=== PATIENT | female | born 1945 | race Caucasian/White ===

== ENCOUNTER 2016-10-18 06:36 | Day surgery (SDC) | payer OTHER ==
[2016-10-18] MEDS ORDERED: DEXAMETHASONE IVPB ONE (08:00)
[2016-10-18] MEDS ORDERED: DIPHENHYDRAMINE IVPB ONE (08:00)
[2016-10-18] MEDS ORDERED: SODIUM CHLORIDE 250 ML IV ONE (08:00)
[2016-10-18] MEDS ORDERED: [UNRECOGNIZED DRUG - OTHER] IVPB ONE (08:00)
[2016-10-18] MEDS ORDERED: ONDANSETRON IVPB ONE (08:00)
[2016-10-18] MEDS ORDERED: PACLITAXEL 156 MG in SODIUM CHLORIDE 250 ML IVPB ONE (08:30)
[2016-10-18 08:36] LABS: MCH 32.2 pg (25.7-33.7); MCHC 33.9 g/dl (32.0-36.0); MEAN CELL VOLUME 94.8 fl (80-96); MEAN PLT VOLUME 6.6 fl (7.5-11.1); PLATELET COUNT 273 K/MM3 (134-434); RDW 15.3 % (11.6-15.6); WHITE BLOOD COUNT 5.8 K/mm3 (4.0-10.0)
[2016-10-18 08:37] LABS: BASOPHIL 1.1 % (0-2.0); EOSINOPHIL 1.6 % (0-4.5); NEUTROPHILS 68.2 % (42.8-82.8)
[2016-10-18 10:48] LABS: ANION GAP 11 (8-16); CALCIUM 8.6 mg/dL (8.5-10.1); CO2 19 mmol/L (21-32); GLUCOSE,RANDOM 100 mg/dL (74-106); MAGNESIUM 1.5 mg/dL (1.8-2.4)
[2016-10-18 11:05] LABS: ALBUMIN 3.3 g/dl (3.4-5.0); ALK PHOS 72 U/L (45-117); BILIRUBIN,TOTAL 0.3 mg/dL (0.2-1.0); CREATININE 1.7 mg/dL (0.55-1.02); SGOT/AST 16 U/L (15-37); SGPT/ALT 13 U/L (12-78)
[2016-10-18 11:11] LABS: BILIRUBIN,DIRECT < 0.1 mg/dL (0.0-0.2)
[2016-10-18] MEDS ORDERED: MAGNESIUM SULF 50% (8.12 MEQ/2 ML-1 GM VIAL) IVPB ONE (12:00)
[2016-10-18 15:55] VITALS: BMI 28.8
[2016-10-18 16:05] VITALS: BP 124/66; PULSE 66; TEMP 98.3
== END 2016-10-18 15:00 | disposition home or self-care (01) ==
LOC: JONCCHEMO 06:36 → J7W 09:20 → JONCCHEMO 15:00
PROVIDERS: ATTEND Internal Medicine Hematology & Oncology
PROC: 3E04305 Introduction of Other Antineoplastic into Central Vein, Percutaneous Approach (ICD-10-PCS; principal; 2016-10-18)
PROC: 3E0437Z Introduction of Electrolytic and Water Balance Substance into Central Vein, Percutaneous Approach (ICD-10-PCS; 2016-10-18)
DX: Z51.11 Encounter for antineoplastic chemotherapy (principal); C50.911 Malignant neoplasm of unspecified site of right female breast
CPT/HCPCS: 96361; 96367; 96375; 96413; J9267; 36415; 80048; 80076; 83735; 85027; 96415

== ENCOUNTER 2016-10-30 06:40 | Day surgery (SDC) | payer OTHER ==
[2016-10-30] MEDS ORDERED: [UNRECOGNIZED DRUG - OTHER] IVPB ONE (08:00)
[2016-10-30] MEDS ORDERED: SODIUM CHLORIDE 250 ML IV ONE (08:00)
[2016-10-30] MEDS ORDERED: DEXAMETHASONE IVPB ONE (08:00)
[2016-10-30] MEDS ORDERED: DIPHENHYDRAMINE IVPB ONE (08:00)
[2016-10-30] MEDS ORDERED: ONDANSETRON IVPB ONE (08:00)
[2016-10-30] MEDS ORDERED: PACLITAXEL 156 MG in SODIUM CHLORIDE 250 ML IVPB ONE (08:30)
[2016-10-30 09:31] LABS: BASOPHIL 0.7 % (0-2.0); EOSINOPHIL 2.9 % (0-4.5); MCH 31.8 pg (25.7-33.7); MCHC 33.7 g/dl (32.0-36.0); MEAN CELL VOLUME 94.2 fl (80-96); MEAN PLT VOLUME 6.5 fl (7.5-11.1); NEUTROPHILS 65.7 % (42.8-82.8); PLATELET COUNT 244 K/MM3 (134-434); RDW 15.1 % (11.6-15.6); WHITE BLOOD COUNT 4.4 K/mm3 (4.0-10.0)
[2016-10-30 12:24] LABS: ALBUMIN 3.1 g/dl (3.4-5.0); BILIRUBIN,DIRECT 0.1 mg/dL (0.0-0.2); BILIRUBIN,TOTAL 0.3 mg/dL (0.2-1.0); MAGNESIUM 1.8 mg/dL (1.8-2.4); TOT PROT 6.5 g/dl (6.4-8.2)
[2016-10-30 17:35] VITALS: BP 140/89; PULSE 72; TEMP 98.2
== END 2016-10-30 14:30 | disposition home or self-care (01) ==
LOC: JONCCHEMO 06:40 → J7W 10:44 → JONCCHEMO 14:30
PROVIDERS: ATTEND Internal Medicine Hematology & Oncology
PROC: 3E04305 Introduction of Other Antineoplastic into Central Vein, Percutaneous Approach (ICD-10-PCS; principal; 2016-10-30)
PROC: 3E0437Z Introduction of Electrolytic and Water Balance Substance into Central Vein, Percutaneous Approach (ICD-10-PCS; 2016-10-30)
DX: Z51.11 Encounter for antineoplastic chemotherapy (principal); C50.911 Malignant neoplasm of unspecified site of right female breast
CPT/HCPCS: 96361; 96367; 96413; J9267; 36415; 80076; 83735; 85025; 96415

== ENCOUNTER 2016-11-13 07:09 | Day surgery (SDC) | payer OTHER ==
[2016-11-13] MEDS ORDERED: DEXAMETHASONE IVPB ONE (08:00)
[2016-11-13] MEDS ORDERED: ONDANSETRON IVPB ONE (08:00)
[2016-11-13] MEDS ORDERED: SODIUM CHLORIDE 250 ML IV ONE (08:00)
[2016-11-13] MEDS ORDERED: [UNRECOGNIZED DRUG - OTHER] IVPB ONE (08:00)
[2016-11-13] MEDS ORDERED: DIPHENHYDRAMINE IVPB ONE (08:00)
[2016-11-13] MEDS ORDERED: SODIUM CHLORIDE IVPB ONE (08:30)
[2016-11-13] MEDS ORDERED: PACLITAXEL IVPB ONE (08:30)
[2016-11-13 10:26] LABS: MCH 31.3 pg (25.7-33.7); MCHC 33.6 g/dl (32.0-36.0); MEAN CELL VOLUME 93.2 fl (80-96); RDW 15.4 % (11.6-15.6); WHITE BLOOD COUNT 5.1 K/mm3 (4.0-10.0)
[2016-11-13 10:27] LABS: MEAN PLT VOLUME 6.6 fl (7.5-11.1)
[2016-11-13 12:14] LABS: ALBUMIN 3.4 g/dl (3.4-5.0); ANION GAP 12 (8-16); BILIRUBIN,TOTAL 0.3 mg/dL (0.2-1.0); CALCIUM 8.6 mg/dL (8.5-10.1); CO2 24 mmol/L (21-32); CREATININE 1.5 mg/dL (0.55-1.02); GLUCOSE,RANDOM 94 mg/dL (74-106); MAGNESIUM 1.6 mg/dL (1.8-2.4); SGOT/AST 17 U/L (15-37); SGPT/ALT 11 U/L (12-78); TOT PROT 6.8 g/dl (6.4-8.2)
[2016-11-13 12:15] LABS: ALK PHOS 77 U/L (45-117)
[2016-11-13 12:22] LABS: BILIRUBIN,DIRECT < 0.1 mg/dL (0.0-0.2)
[2016-11-13 12:35] LABS: PLATELET COUNT 274 K/MM3 (134-434); PLATELET ESTIMATE ADEQUATE (NORMAL)
[2016-11-13] MEDS ORDERED: MAGNESIUM SULF 50% (8.12 MEQ/2 ML-1 GM VIAL) IVPB ONE (13:20)
[2016-11-13 14:41] VITALS: BP 130/62; PULSE 84; TEMP 98.2
== END 2016-11-13 14:46 | disposition home or self-care (01) ==
LOC: JONCCHEMO 07:09 → J7W 10:29 → JONCCHEMO 14:46
PROVIDERS: ATTEND Internal Medicine Hematology & Oncology
PROC: 3E04305 Introduction of Other Antineoplastic into Central Vein, Percutaneous Approach (ICD-10-PCS; principal; 2016-11-13)
PROC: 3E0437Z Introduction of Electrolytic and Water Balance Substance into Central Vein, Percutaneous Approach (ICD-10-PCS; 2016-11-13)
PROC: 3E043GC Introduction of Other Therapeutic Substance into Central Vein, Percutaneous Approach (ICD-10-PCS; 2016-11-13)
DX: Z51.11 Encounter for antineoplastic chemotherapy (principal); C50.911 Malignant neoplasm of unspecified site of right female breast
CPT/HCPCS: 96361; 96367; 96413; J9267; 36415; 80048; 80076; 82378; 83735; 85025; 86300

== ENCOUNTER 2016-11-27 07:04 | Day surgery (SDC) | payer OTHER ==
[2016-11-27] MEDS ORDERED: [UNRECOGNIZED DRUG - OTHER] IVPB ONE (08:00)
[2016-11-27] MEDS ORDERED: DEXAMETHASONE IVPB ONE (08:00)
[2016-11-27] MEDS ORDERED: ONDANSETRON IVPB ONE (08:00)
[2016-11-27] MEDS ORDERED: DIPHENHYDRAMINE IVPB ONE (08:00)
[2016-11-27] MEDS ORDERED: PACLITAXEL 156 MG in SODIUM CHLORIDE 250 ML IVPB ONE (08:30)
[2016-11-27] MEDS ORDERED: SODIUM CHLORIDE 250 ML IV ONE (09:30)
[2016-11-27 09:32] LABS: BASOPHIL 1.3 % (0-2.0); MCH 31.2 pg (25.7-33.7); MCHC 33.7 g/dl (32.0-36.0); MEAN CELL VOLUME 92.5 fl (80-96); MEAN PLT VOLUME 6.5 fl (7.5-11.1); NEUTROPHILS 62.8 % (42.8-82.8); PLATELET COUNT 254 K/MM3 (134-434); RDW 15.3 % (11.6-15.6); WHITE BLOOD COUNT 4.6 K/mm3 (4.0-10.0)
[2016-11-27 13:36] LABS: ALBUMIN 3.1 g/dl (3.4-5.0); BILIRUBIN,DIRECT 0.1 mg/dL (0.0-0.2); BILIRUBIN,TOTAL 0.3 mg/dL (0.2-1.0); CALCIUM 8.4 mg/dL (8.5-10.1); CREATININE 1.5 mg/dL (0.55-1.02); TOT PROT 6.3 g/dl (6.4-8.2)
[2016-11-27 16:44] VITALS: BP 127/74; PULSE 82; TEMP 98.6
== END 2016-11-27 16:00 | disposition home or self-care (01) ==
LOC: JONCCHEMO 07:04 → J7W 12:08 → JONCCHEMO 16:00
PROVIDERS: ATTEND Internal Medicine Hematology & Oncology
PROC: 3E04305 Introduction of Other Antineoplastic into Central Vein, Percutaneous Approach (ICD-10-PCS; principal; 2016-11-27)
PROC: 3E043GC Introduction of Other Therapeutic Substance into Central Vein, Percutaneous Approach (ICD-10-PCS; 2016-11-27)
PROC: 3E0437Z Introduction of Electrolytic and Water Balance Substance into Central Vein, Percutaneous Approach (ICD-10-PCS; 2016-11-27)
DX: Z51.11 Encounter for antineoplastic chemotherapy (principal); C50.311 Malignant neoplasm of lower-inner quadrant of right female breast; C79.89 Secondary malignant neoplasm of other specified sites
CPT/HCPCS: 96367; 96413; J1100; J1200; J9267; 36415; 80048; 80076; 82378; 83735; 85025; 86300; 96360; 96415

== ENCOUNTER 2016-12-14 07:10 | Day surgery (SDC) | payer OTHER ==
[2016-12-14] MEDS ORDERED: DEXAMETHASONE INJECTION 8 MG in SODIUM CHLORIDE 50 ML IVPB ONE (08:00)
[2016-12-14] MEDS ORDERED: [UNRECOGNIZED DRUG - OTHER] IVPB ONE (08:00)
[2016-12-14] MEDS ORDERED: ONDANSETRON IVPB ONE (08:00)
[2016-12-14] MEDS ORDERED: RANITIDINE IVPB ONE (08:00)
[2016-12-14] MEDS ORDERED: SODIUM CHLORIDE 250 ML IV ONE (08:00)
[2016-12-14] MEDS ORDERED: DIPHENHYDRAMINE IVPB ONE (08:00)
[2016-12-14] MEDS ORDERED: PACLITAXEL 156 MG in SODIUM CHLORIDE 250 ML IVPB ONE (08:30)
[2016-12-14 09:38] LABS: BASOPHIL 1.3 % (0-2.0); EOSINOPHIL 2.6 % (0-4.5); MCH 30.9 pg (25.7-33.7); MCHC 33.4 g/dl (32.0-36.0); MEAN CELL VOLUME 92.4 fl (80-96); MEAN PLT VOLUME 6.5 fl (7.5-11.1); NEUTROPHILS 67.6 % (42.8-82.8); PLATELET COUNT 252 K/MM3 (134-434); RDW 16.2 % (11.6-15.6); WHITE BLOOD COUNT 5.8 K/mm3 (4.0-10.0)
[2016-12-14 12:22] LABS: ALBUMIN 3.4 g/dl (3.4-5.0); ANION GAP 8 (8-16); CALCIUM 8.9 mg/dL (8.5-10.1); CO2 24 mmol/L (21-32); GLUCOSE,RANDOM 90 mg/dL (74-106)
[2016-12-14 12:25] LABS: ALK PHOS 85 U/L (45-117); BILIRUBIN,TOTAL 0.3 mg/dL (0.2-1.0); COCKROFT - GAULT 45.05; CREATININE 1.5 mg/dL (0.55-1.02); SGOT/AST 21 U/L (15-37); SGPT/ALT 13 U/L (12-78)
[2016-12-14 12:29] LABS: BILIRUBIN,DIRECT < 0.1 mg/dL (0.0-0.2)
[2016-12-14 14:55] VITALS: BP 134/79; PULSE 56; TEMP 97.8
== END 2016-12-14 18:49 | disposition home or self-care (01) ==
LOC: JONCCHEMO 07:10 → J7W 11:08 → JONCCHEMO 18:49
PROVIDERS: ATTEND Internal Medicine Hematology & Oncology
PROC: 3E04305 Introduction of Other Antineoplastic into Central Vein, Percutaneous Approach (ICD-10-PCS; principal; 2016-12-14)
PROC: 3E043GC Introduction of Other Therapeutic Substance into Central Vein, Percutaneous Approach (ICD-10-PCS; 2016-12-14)
PROC: 3E0437Z Introduction of Electrolytic and Water Balance Substance into Central Vein, Percutaneous Approach (ICD-10-PCS; 2016-12-14)
DX: Z51.11 Encounter for antineoplastic chemotherapy (principal); C50.311 Malignant neoplasm of lower-inner quadrant of right female breast; C79.89 Secondary malignant neoplasm of other specified sites
CPT/HCPCS: 96361; 96375; 96413; J1100; J1200; J2405; J2780; J7030; J9267; 36415; 80048; 80076; 83735; 84439; 85025; 96367

== ENCOUNTER 2016-12-25 07:06 | Day surgery (SDC) | payer OTHER ==
[2016-12-25] MEDS ORDERED: DEXAMETHASONE INJECTION 8 MG in SODIUM CHLORIDE 50 ML IVPB ONE (08:00)
[2016-12-25] MEDS ORDERED: ONDANSETRON IVPB ONE (08:00)
[2016-12-25] MEDS ORDERED: [UNRECOGNIZED DRUG - OTHER] IVPB ONE (08:00)
[2016-12-25] MEDS ORDERED: RANITIDINE IVPB ONE (08:00)
[2016-12-25] MEDS ORDERED: DIPHENHYDRAMINE IVPB ONE (08:00)
[2016-12-25] MEDS ORDERED: SODIUM CHLORIDE 250 ML IV ONE (08:00)
[2016-12-25] MEDS ORDERED: PACLITAXEL 156 MG in SODIUM CHLORIDE 250 ML IVPB ONE (08:30)
[2016-12-25 09:15] LABS: BASOPHIL 1.3 % (0-2.0); EOSINOPHIL 4.9 % (0-4.5); MCH 31.1 pg (25.7-33.7); MCHC 33.5 g/dl (32.0-36.0); MEAN CELL VOLUME 92.8 fl (80-96); MEAN PLT VOLUME 6.8 fl (7.5-11.1); NEUTROPHILS 63.6 % (42.8-82.8); PLATELET COUNT 266 K/MM3 (134-434); WHITE BLOOD COUNT 5.3 K/mm3 (4.0-10.0)
[2016-12-25 12:40] LABS: ALBUMIN 3.3 g/dl (3.4-5.0); BILIRUBIN,TOTAL 0.2 mg/dL (0.2-1.0); SGOT/AST 18 U/L (15-37); SGPT/ALT 15 U/L (12-78); TOT PROT 6.4 g/dl (6.4-8.2)
[2016-12-25 12:41] LABS: ALK PHOS 75 U/L (45-117)
[2016-12-25 12:42] LABS: BILIRUBIN,DIRECT < 0.1 mg/dL (0.0-0.2)
[2016-12-25 15:53] VITALS: BP 153/94; PULSE 85; TEMP 98.6
== END 2016-12-25 17:58 | disposition home or self-care (01) ==
LOC: JONCCHEMO 07:06 → J7W 11:00 → JONCCHEMO 17:58
PROVIDERS: ATTEND Internal Medicine Hematology & Oncology
DX: Z51.11 Encounter for antineoplastic chemotherapy (principal); C50.311 Malignant neoplasm of lower-inner quadrant of right female breast; C79.9 Secondary malignant neoplasm of unspecified site
CPT/HCPCS: 36415; 80076; 82378; 85025; 86300; 96360; 96361; 96367; 96413

== ENCOUNTER 2017-01-08 07:40 | Day surgery (SDC) | payer OTHER ==
[2017-01-08] MEDS ORDERED: DEXAMETHASONE INJECTION 8 MG in SODIUM CHLORIDE 50 ML IVPB ONE (08:00)
[2017-01-08] MEDS ORDERED: SODIUM CHLORIDE 250 ML IV ONE (08:00)
[2017-01-08] MEDS ORDERED: RANITIDINE IVPB ONE (08:00)
[2017-01-08] MEDS ORDERED: [UNRECOGNIZED DRUG - OTHER] IVPB ONE (08:00)
[2017-01-08] MEDS ORDERED: ONDANSETRON IVPB ONE (08:00)
[2017-01-08] MEDS ORDERED: DIPHENHYDRAMINE IVPB ONE (08:00)
[2017-01-08] MEDS ORDERED: PACLITAXEL 156 MG in SODIUM CHLORIDE 250 ML IVPB ONE (08:30)
[2017-01-08 10:13] LABS: MCH 31.3 pg (25.7-33.7); MCHC 33.4 g/dl (32.0-36.0); MEAN CELL VOLUME 93.8 fl (80-96); MEAN PLT VOLUME 6.6 fl (7.5-11.1); NEUTROPHILS 61.9 % (42.8-82.8); PLATELET COUNT 219 K/MM3 (134-434); RDW 17.9 % (11.6-15.6); WHITE BLOOD COUNT 4.7 K/mm3 (4.0-10.0)
[2017-01-08 10:14] LABS: BASOPHIL 1.3 % (0-2.0); EOSINOPHIL 2.3 % (0-4.5)
[2017-01-08 14:42] LABS: ALBUMIN 3.3 g/dl (3.4-5.0); BILIRUBIN,DIRECT 0.2 mg/dL (0.0-0.2); BILIRUBIN,TOTAL 0.4 mg/dL (0.2-1.0); MAGNESIUM 1.9 mg/dL (1.8-2.4); TOT PROT 6.6 g/dl (6.4-8.2)
[2017-01-08] MEDS ORDERED: PORTA CATH FLUSH 10 ML IVPUSH ONE (16:52)
[2017-01-08 17:21] VITALS: BP 145/75; PULSE 72
[2017-01-08 17:22] VITALS: TEMP 98.3
== END 2017-01-08 18:03 | disposition home or self-care (01) ==
LOC: JONCCHEMO 07:40 → J7W 12:57 → JONCCHEMO 18:03
PROVIDERS: ATTEND Internal Medicine Hematology & Oncology
DX: Z51.11 Encounter for antineoplastic chemotherapy (principal); C50.311 Malignant neoplasm of lower-inner quadrant of right female breast; C79.9 Secondary malignant neoplasm of unspecified site
CPT/HCPCS: 36415; 80076; 83735; 85025; 96360; 96361; 96367; 96413

== ENCOUNTER 2017-01-25 07:18 | Day surgery (SDC) | payer OTHER ==
[2017-01-25 09:46] LABS: BASOPHIL 1.1 % (0-2.0); EOSINOPHIL 1.8 % (0-4.5); MCHC 33.2 g/dl (32.0-36.0); MEAN CELL VOLUME 93.3 fl (80-96); MEAN PLT VOLUME 6.7 fl (7.5-11.1); NEUTROPHILS 71.6 % (42.8-82.8); PLATELET COUNT 300 K/MM3 (134-434); RDW 17.5 % (11.6-15.6); WHITE BLOOD COUNT 5.7 K/mm3 (4.0-10.0)
[2017-01-25] MEDS ORDERED: DIPHENHYDRAMINE IVPB ONE (10:00)
[2017-01-25] MEDS ORDERED: ONDANSETRON IVPB ONE (10:00)
[2017-01-25] MEDS ORDERED: RANITIDINE IVPB ONE (10:00)
[2017-01-25] MEDS ORDERED: DEXAMETHASONE INJECTION 8 MG in SODIUM CHLORIDE 50 ML IVPB ONE (10:00)
[2017-01-25] MEDS ORDERED: SODIUM CHLORIDE 250 ML IV ONE (10:00)
[2017-01-25] MEDS ORDERED: [UNRECOGNIZED DRUG - OTHER] IVPB ONE (10:00)
[2017-01-25 10:17] LABS: ALBUMIN 3.4 g/dl (3.4-5.0); BILIRUBIN,TOTAL 0.3 mg/dL (0.2-1.0); COCKROFT - GAULT 48.45; CREATININE 1.4 mg/dL (0.55-1.02); MAGNESIUM 1.9 mg/dL (1.8-2.4); TOT PROT 6.9 g/dl (6.4-8.2)
[2017-01-25] MEDS ORDERED: PACLITAXEL 156 MG in SODIUM CHLORIDE 250 ML IVPB ONE (10:30)
[2017-01-25 13:56] VITALS: PULSE 86; TEMP 98.8
[2017-01-25 14:52] VITALS: BP 167/96
== END 2017-01-25 14:55 | disposition home or self-care (01) ==
LOC: JONCCHEMO 07:18 → J7W 10:57 → JONCCHEMO 14:55
PROVIDERS: ATTEND Internal Medicine Hematology & Oncology
PROC: 3E04305 Introduction of Other Antineoplastic into Central Vein, Percutaneous Approach (ICD-10-PCS; principal; 2017-01-25)
PROC: 3E043GC Introduction of Other Therapeutic Substance into Central Vein, Percutaneous Approach (ICD-10-PCS; 2017-01-25)
PROC: 3E0437Z Introduction of Electrolytic and Water Balance Substance into Central Vein, Percutaneous Approach (ICD-10-PCS; 2017-01-25)
DX: Z51.11 Encounter for antineoplastic chemotherapy (principal); C50.311 Malignant neoplasm of lower-inner quadrant of right female breast; C79.89 Secondary malignant neoplasm of other specified sites; D70.1 Agranulocytosis secondary to cancer chemotherapy
CPT/HCPCS: 96361; 96366; 96367; 96413; J9267; 36415; 80053; 83735; 85025; 96360; 96415

== ENCOUNTER 2017-02-05 09:23 | Day surgery (SDC) | payer OTHER ==
[2017-02-05] MEDS ORDERED: DEXAMETHASONE INJECTION 8 MG in SODIUM CHLORIDE 50 ML IVPB ONE (10:00)
[2017-02-05] MEDS ORDERED: SODIUM CHLORIDE 250 ML IV ONE (10:00)
[2017-02-05] MEDS ORDERED: ONDANSETRON IVPB ONE (10:00)
[2017-02-05] MEDS ORDERED: RANITIDINE IVPB ONE (10:00)
[2017-02-05] MEDS ORDERED: [UNRECOGNIZED DRUG - OTHER] IVPB ONE (10:00)
[2017-02-05] MEDS ORDERED: DIPHENHYDRAMINE IVPB ONE (10:00)
[2017-02-05 10:12] LABS: BASOPHIL 1.1 % (0-2.0); EOSINOPHIL 3.1 % (0-4.5); MCH 31.6 pg (25.7-33.7); MCHC 33.6 g/dl (32.0-36.0); MEAN PLT VOLUME 6.8 fl (7.5-11.1); NEUTROPHILS 63.6 % (42.8-82.8); PLATELET COUNT 246 K/MM3 (134-434); RDW 17.4 % (11.6-15.6); WHITE BLOOD COUNT 4.3 K/mm3 (4.0-10.0)
[2017-02-05] MEDS ORDERED: PACLITAXEL 156 MG in SODIUM CHLORIDE 250 ML IVPB ONE (10:30)
[2017-02-05 10:40] LABS: ALBUMIN 3.5 g/dl (3.4-5.0); BILIRUBIN,TOTAL 0.4 mg/dL (0.2-1.0); CALCIUM 9.1 mg/dL (8.5-10.1); COCKROFT - GAULT 42.5; CREATININE 1.6 mg/dL (0.55-1.02); MAGNESIUM 2.1 mg/dL (1.8-2.4); TOT PROT 6.9 g/dl (6.4-8.2)
[2017-02-05] MEDS ORDERED: PORTA CATH FLUSH 10 ML IVPUSH ONE (11:27)
[2017-02-05 15:20] VITALS: BP 160/94; PULSE 74; TEMP 98.1
== END 2017-02-05 15:35 | disposition home or self-care (01) ==
LOC: JONCCHEMO 09:23 → J7W 11:15 → JONCCHEMO 15:35
PROVIDERS: ATTEND Internal Medicine Hematology & Oncology
PROC: 3E04305 Introduction of Other Antineoplastic into Central Vein, Percutaneous Approach (ICD-10-PCS; principal; 2017-02-05)
PROC: 3E043GC Introduction of Other Therapeutic Substance into Central Vein, Percutaneous Approach (ICD-10-PCS; 2017-02-05)
PROC: 3E0437Z Introduction of Electrolytic and Water Balance Substance into Central Vein, Percutaneous Approach (ICD-10-PCS; 2017-02-05)
DX: Z51.11 Encounter for antineoplastic chemotherapy (principal); C50.311 Malignant neoplasm of lower-inner quadrant of right female breast; C79.89 Secondary malignant neoplasm of other specified sites; D70.1 Agranulocytosis secondary to cancer chemotherapy
CPT/HCPCS: 36415; 80053; 83735; 85025; 96360; 96361; 96367; 96375; 96413

== ENCOUNTER 2017-02-19 07:20 | Day surgery (SDC) | payer OTHER ==
[2017-02-19] MEDS ORDERED: DIPHENHYDRAMINE IVPB ONE (10:00)
[2017-02-19] MEDS ORDERED: DEXAMETHASONE INJECTION 8 MG in SODIUM CHLORIDE 50 ML IVPB ONE (10:00)
[2017-02-19] MEDS ORDERED: [UNRECOGNIZED DRUG - OTHER] IVPB ONE (10:00)
[2017-02-19] MEDS ORDERED: SODIUM CHLORIDE 250 ML IV ONE (10:00)
[2017-02-19] MEDS ORDERED: RANITIDINE IVPB ONE (10:00)
[2017-02-19] MEDS ORDERED: ONDANSETRON IVPB ONE (10:00)
[2017-02-19 10:20] LABS: BASOPHIL 0.9 % (0-2.0); EOSINOPHIL 2.5 % (0-4.5); MCH 31.5 pg (25.7-33.7); MCHC 33.7 g/dl (32.0-36.0); MEAN CELL VOLUME 93.5 fl (80-96); MEAN PLT VOLUME 6.2 fl (7.5-11.1); NEUTROPHILS 56.1 % (42.8-82.8); PLATELET COUNT 237 K/MM3 (134-434); RDW 16.6 % (11.6-15.6); WHITE BLOOD COUNT 3.9 K/mm3 (4.0-10.0)
[2017-02-19] MEDS ORDERED: PACLITAXEL 156 MG in SODIUM CHLORIDE 250 ML IVPB ONE (10:30)
[2017-02-19 10:53] LABS: ALBUMIN 3.3 g/dl (3.4-5.0); ANION GAP 8 (8-16); BILIRUBIN,TOTAL 0.3 mg/dL (0.2-1.0); CALCIUM 8.4 mg/dL (8.5-10.1); CO2 27 mmol/L (21-32); CREATININE 1.5 mg/dL (0.55-1.02); GLUCOSE,RANDOM 96 mg/dL (74-106); MAGNESIUM 1.8 mg/dL (1.8-2.4); SGOT/AST 22 U/L (15-37); SGPT/ALT 14 U/L (12-78)
[2017-02-19 10:54] LABS: ALK PHOS 94 U/L (45-117)
[2017-02-19 10:57] LABS: BILIRUBIN,DIRECT < 0.1 mg/dL (0.0-0.2)
[2017-02-19 16:26] VITALS: TEMP 98.3
[2017-02-19] MEDS ORDERED: PORTA CATH FLUSH 10 ML IVPUSH ONE (16:26)
[2017-02-19 16:43] VITALS: BP 160/90; PULSE 52
== END 2017-02-19 16:46 | disposition home or self-care (01) ==
LOC: JONCCHEMO 07:20 → J7W 12:15 → JONCCHEMO 16:46
PROVIDERS: ATTEND Internal Medicine Hematology & Oncology
PROC: 3E04305 Introduction of Other Antineoplastic into Central Vein, Percutaneous Approach (ICD-10-PCS; principal; 2017-02-19)
PROC: 3E043GC Introduction of Other Therapeutic Substance into Central Vein, Percutaneous Approach (ICD-10-PCS; 2017-02-19)
PROC: 3E0437Z Introduction of Electrolytic and Water Balance Substance into Central Vein, Percutaneous Approach (ICD-10-PCS; 2017-02-19)
DX: Z51.11 Encounter for antineoplastic chemotherapy (principal); C50.311 Malignant neoplasm of lower-inner quadrant of right female breast; C79.89 Secondary malignant neoplasm of other specified sites; D70.1 Agranulocytosis secondary to cancer chemotherapy
CPT/HCPCS: 96361; 96367; 96375; 96413; J9267; 36415; 80053; 80076; 82378; 83735; 85025; 86300

== ENCOUNTER 2017-03-05 07:44 | Day surgery (SDC) | payer OTHER ==
[2017-03-05] MEDS ORDERED: SODIUM CHLORIDE 250 ML IV ONE (08:00)
[2017-03-05] MEDS ORDERED: DEXAMETHASONE IVPB ONE (08:30)
[2017-03-05] MEDS ORDERED: ONDANSETRON IVPB ONE (08:30)
[2017-03-05] MEDS ORDERED: [UNRECOGNIZED DRUG - OTHER] IVPB ONE (08:30)
[2017-03-05] MEDS ORDERED: DIPHENHYDRAMINE IVPB ONE (08:30)
[2017-03-05] MEDS ORDERED: PACLITAXEL 156 MG in SODIUM CHLORIDE 250 ML IVPB ONE (09:00)
[2017-03-05 09:49] LABS: MCH 31.8 pg (25.7-33.7); MCHC 33.7 g/dl (32.0-36.0); MEAN CELL VOLUME 94.3 fl (80-96); MEAN PLT VOLUME 6.3 fl (7.5-11.1); PLATELET COUNT 231 K/MM3 (134-434); RDW 16.3 % (11.6-15.6); WHITE BLOOD COUNT 4.3 K/mm3 (4.0-10.0)
[2017-03-05 10:26] LABS: PLATELET ESTIMATE ADEQUATE (NORMAL)
[2017-03-05 11:11] VITALS: TEMP 98.1
[2017-03-05] MEDS ORDERED: PORTA CATH FLUSH 10 ML IVPUSH ONE (11:11)
[2017-03-05 15:14] VITALS: BP 157/86; PULSE 68
== END 2017-03-05 15:36 | disposition home or self-care (01) ==
LOC: JONCCHEMO 07:44 → J7W 11:03 → JONCCHEMO 15:36
PROVIDERS: ATTEND Internal Medicine Hematology & Oncology
PROC: 3E04305 Introduction of Other Antineoplastic into Central Vein, Percutaneous Approach (ICD-10-PCS; principal; 2017-03-05)
PROC: 3E043GC Introduction of Other Therapeutic Substance into Central Vein, Percutaneous Approach (ICD-10-PCS; 2017-03-05)
PROC: 3E0437Z Introduction of Electrolytic and Water Balance Substance into Central Vein, Percutaneous Approach (ICD-10-PCS; 2017-03-05)
DX: Z51.11 Encounter for antineoplastic chemotherapy (principal); C50.311 Malignant neoplasm of lower-inner quadrant of right female breast; C79.89 Secondary malignant neoplasm of other specified sites; D70.1 Agranulocytosis secondary to cancer chemotherapy
CPT/HCPCS: 96361; 96366; 96367; 96413; J9267; 36415; 85025; 96375

== ENCOUNTER 2017-03-19 07:20 | Day surgery (SDC) | payer OTHER ==
[2017-03-19] MEDS ORDERED: SODIUM CHLORIDE 250 ML IV ONE (08:00)
[2017-03-19] MEDS ORDERED: DEXAMETHASONE INJECTION 8 MG in SODIUM CHLORIDE 50 ML IVPB ONE (08:30)
[2017-03-19] MEDS ORDERED: [UNRECOGNIZED DRUG - OTHER] IVPB ONE (08:30)
[2017-03-19] MEDS ORDERED: ONDANSETRON IVPB ONE (08:30)
[2017-03-19] MEDS ORDERED: DIPHENHYDRAMINE IVPB ONE (08:30)
[2017-03-19] MEDS ORDERED: RANITIDINE IVPB ONE (08:30)
[2017-03-19] MEDS ORDERED: PACLITAXEL 156 MG in SODIUM CHLORIDE 250 ML IVPB ONE (09:00)
[2017-03-19 09:55] VITALS: BP 130/74; PULSE 70; TEMP 98.7
[2017-03-19 10:10] LABS: BASOPHIL 1.3 % (0-2.0); EOSINOPHIL 2.5 % (0-4.5); MCH 32.7 pg (25.7-33.7); MEAN PLT VOLUME 6.4 fl (7.5-11.1); NEUTROPHILS 62.3 % (42.8-82.8); PLATELET COUNT 230 K/MM3 (134-434); WHITE BLOOD COUNT 4.6 K/mm3 (4.0-10.0)
[2017-03-19 13:01] LABS: ALBUMIN 3.6 g/dl (3.4-5.0); ANION GAP 10 (8-16); BILIRUBIN,DIRECT 0.1 mg/dL (0.0-0.2); BILIRUBIN,TOTAL 0.5 mg/dL (0.2-1.0); CO2 23 mmol/L (21-32); CREATININE 1.3 mg/dL (0.55-1.02); GLUCOSE,RANDOM 86 mg/dL (74-106); SGOT/AST 31 U/L (15-37); SGPT/ALT 19 U/L (12-78); TOT PROT 6.9 g/dl (6.4-8.2)
[2017-03-19 13:03] LABS: ALK PHOS 81 U/L (45-117)
== END 2017-03-19 14:30 | disposition home or self-care (01) ==
LOC: JONCCHEMO 07:20 → J7W 11:08 → JONCCHEMO 14:30
PROVIDERS: ATTEND Internal Medicine Hematology & Oncology
DX: Z51.11 Encounter for antineoplastic chemotherapy (principal); C50.311 Malignant neoplasm of lower-inner quadrant of right female breast; D70.1 Agranulocytosis secondary to cancer chemotherapy
CPT/HCPCS: 36415; 80053; 80076; 82378; 83735; 85025; 86300; 96361; 96367; 96375; 96413

== ENCOUNTER 2017-03-23 14:48 | Emergency (ER) | payer OTHER ==
[2017-03-23 15:13] VITALS: BP 128/80; PULSE 94; TEMP 98.8; BMI 31.2
--- NOTE | 2017-03-23 17:00 | PDOC ---
History of Present Illness - General History Source: Patient Exam Limitations: No Limitations - History of Present Illness Initial Comments: 03/23/17 17:19 The patient is a 70-year-old female, with a history of breast ca s/p mastectomy/ RTX/chemotherapy with mets including bone and extensive peritoneal carcinomatosis, who presents to the ED with 3 days of back pain. Pt reports that she had chemotherapy on Monday 03/19. She returned home on Sunday and ate green[place]ic food. She woke up on Sunday morning and began to experience multiple episodes of vomiting. Pt was not able to tolerate any solids or liquids. She also reports that she developed lower back pain that radiates to her lower abdomen. Pt's nausea and vomiting resolved on and she was able to go back to eating normally. On exam, pt does report having an ostomy and has noticed a little extra output which is concerning her. The patient denies any fever, chills, or diarrhea. Oncologist: Dr. Edward Surgical Hx: Intestinal Resection (2013 colostomy) Allergies: None <Patrica Shah - Last Filed: 03/23/17 17:19> <Mony Turner - Last Filed: 03/23/17 21:55> - General Chief Complaint: Pain, Acute Stated Complaint: BACK PAIN Time Seen by Provider: 03/23/17 16:25 Past History <Patrica Shah - Last Filed: 03/23/17 17:19> - Past Medical History Anemia: Yes Asthma: No Cancer: Yes (right breast, lymph nodes, mets to large intestines) Cardiac Disorders: No CVA: No COPD: No CHF: No Dementia: No Diabetes: No GI Disorders: Yes (colostomy) Disorders: Yes (LYMPH NODES COMPRESSED TUBES) HTN: No Hypercholesterolemia: No Liver Disease: No Seizures: No Thyroid Disease: No - Surgical History Abdominal Surgery: Yes (INTESTINAL RESECTION 2013 colostomy) Appendectomy: No Cardiac Surgery: No Cholecystectomy: No Lung Surgery: No Neurologic Surgery: No Orthopedic Surgery: No - Psycho/Social/Smoking Cessation Hx Anxiety: No Suicidal Ideation: No Smoking Status: No Smoking History: Never smoked Have you smoked in the past 12 months: No Number of Cigarettes Smoked Daily: 0 Hx Alcohol Use: No Drug/Substance Use Hx: No Substance Use Type: None Hx Substance Use Treatment: No <Mony Turner - Last Filed: 03/23/17 21:55> - Past Medical History Allergies/Adverse Reactions: Allergies Allergy/AdvReac Type Severity Reaction Status Date / Time No Known Drug Allergies Allergy Verified 03/23/17 15:07 Home Medications: Ambulatory Orders Cephalexin Monohydrate [Keflex -] 500 mg PO Q8H #30 capsule 03/23/17 Review of Systems - Review of Systems Able to Perform ROS?: Yes Comments:: 03/23/17 17:20 GENERAL/CONSTITUTIONAL: No fever or chills. No weakness. HEAD, EYES, EARS, NOSE AND THROAT: No change in vision. No ear pain or discharge. No sore throat. CARDIOVASCULAR: No chest pain or shortness of breath. RESPIRATORY: No cough, wheezing, or hemoptysis. GASTROINTESTINAL:+abdominal pain. No nausea, vomiting, diarrhea or constipation. GENITOURINARY: No dysuria, frequency, or change in urination. MUSCULOSKELETAL: +back pain. No joint or muscle swelling or pain. No neck pain. SKIN: No rash NEUROLOGIC: No headache, vertigo, loss of consciousness, or change in strength/ sensation. ENDOCRINE: No increased thirst. No abnormal weight change. HEMATOLOGIC/LYMPHATIC: No anemia, easy bleeding, or history of blood clots. ALLERGIC/IMMUNOLOGIC: No hives or skin allergy. <Patrica Shah - Last Filed: 03/23/17 17:19> *Physical Exam - Vital Signs Last Vital Signs Temp Pulse Resp BP Pulse Ox 98.8 F 94 H 20 128/80 96 03/23/17 15:07 03/23/17 15:07 03/23/17 15:07 03/23/17 15:07 03/23/17 15:07 <Patrica Shah - Last Filed: 03/23/17 17:19> - Vital Signs Last Vital Signs Temp Pulse Resp BP Pulse Ox 98.8 F 94 H 20 128/80 96 03/23/17 15:07 03/23/17 15:07 03/23/17 15:07 03/23/17 15:07 03/23/17 15:07 - Physical Exam Comments: GENERAL: Awake, alert, and fully oriented, in no acute distress HEAD: No signs of trauma EYES: PERRLA, EOMI, sclera anicteric, conjunctiva clear ENT: Auricles normal inspection, hearing grossly normal, nares patent, oropharynx clear without exudates. Moist mucosa NECK: Normal ROM, supple, no lymphadenopathy, JVD, or masses LUNGS: Breath sounds equal, clear to auscultation bilaterally. No wheezes, and no crackles HEART: Regular rate and rhythm, normal S1 and S2, no murmurs, rubs or gallops ABDOMEN: Soft, nontender, normoactive bowel sounds. No guarding, no rebound. No masses. +Well-healed midline abdominal scar. +Colostomy bag to R mid-abdomen with dark liquid stool (baseline per patient). EXTREMITIES: Normal range of motion, no edema. No clubbing or cyanosis. No cords, erythema, or tenderness NEUROLOGICAL: Cranial nerves II through XII grossly intact. Normal speech, normal gait SKIN: Warm, Dry, normal turgor, no rashes or lesions noted. <Mony Turner - Last Filed: 03/23/17 21:55> ED Treatment Course - LABORATORY CBC & Chemistry Diagram: 03/23/17 17:30 03/23/17 17:30 <Mony Turner - Last Filed: 03/23/17 21:55> Medical Decision Making - Medical Decision Making Pt with prior serum Na 133, now 129. She is awake and alert, reports feeling fine. This change is likely due to her recent GI symptoms, and as she has been drinking plenty of salty fluids, it will likely correct as she repletes herself. Counseled her to return if fatigue, weakness. Will treat UTI with keflex. <Mony Turner - Last Filed: 03/23/17 21:55> *DC/Admit/Observation/Transfer - Attestations Scribe Attestion: 03/23/17 17:21 Documentation prepared by Patrica Shah, acting as medical oncology physician for Mony Turner MD. <Patrica Shah - Last Filed: 03/23/17 17:19> - Discharge Dispostion Admit: No <Mony Turner - Last Filed: 03/23/17 21:55> Diagnosis at time of Disposition: Dehydration UTI (urinary tract infection) Qualifiers: Urinary tract infection type: site unspecified Hematuria presence: without hematuria Qualified Code(s): N39.0 - Urinary tract infection, site not specified - Discharge Dispostion Disposition: HOME Condition at time of disposition: Stable - Prescriptions Prescriptions: Cephalexin Monohydrate [Keflex -] 500 mg PO Q8H #30 capsule - Patient Instructions Printed Discharge Instructions: DI for Urinary Tract Infection (UTI)
[2017-03-23] MEDS ORDERED: SODIUM CHLORIDE 1,000 ML IV STA (17:12)
[2017-03-23 17:41] LABS: EOSINOPHIL 0.8 % (0-4.5); MCH 31.9 pg (25.7-33.7); MCHC 33.5 g/dl (32.0-36.0); MEAN CELL VOLUME 95.4 fl (80-96); MEAN PLT VOLUME 7.4 fl (7.5-11.1); NEUTROPHILS 83.2 % (42.8-82.8); PLATELET COUNT 199 K/MM3 (134-434); RDW 15.8 % (11.6-15.6); WHITE BLOOD COUNT 6.8 K/mm3 (4.0-10.0)
[2017-03-23 17:43] LABS: URINE APPEARANCE CLOUDY; URINE BILIRUBIN NEGATIVE (NEGATIVE); URINE BLOOD 2+ (NEGATIVE); URINE COLOR YELLOW; URINE GLUCOSE (UA) NEGATIVE (NEGATIVE); URINE KETONE NEGATIVE (NEGATIVE); URINE NITRITE NEGATIVE (NEGATIVE); URINE PROTEIN NEGATIVE (NEGATIVE); URINE UROBILINOGEN NEGATIVE mg/dL (0.2-1.0)
[2017-03-23 18:05] LABS: URINE LEUK ESTERASE 3+ (NEGATIVE)
[2017-03-23 18:09] LABS: CALCIUM OXALATE CRYSTALS FEW /hpf (NONE SEEN); URINE BACTERIA MODERATE /hpf (NONE SEEN); URINE MUCUS RARE; URINE RBC 24 /hpf (0-3); URINE WBC 535 /hpf (3-5)
[2017-03-23 18:18] LABS: ALBUMIN 3.5 g/dl (3.4-5.0); ALK PHOS 67 U/L (45-117); ANION GAP 10 (8-16); BILIRUBIN,TOTAL 0.6 mg/dL (0.2-1.0); CALCIUM 8.7 mg/dL (8.5-10.1); CO2 24 mmol/L (21-32); CREATININE 1.2 mg/dL (0.55-1.02); GLUCOSE,RANDOM 100 mg/dL (74-106); SGOT/AST 26 U/L (15-37); SGPT/ALT 18 U/L (12-78); TOT PROT 6.7 g/dl (6.4-8.2)
[2017-03-23] MEDS ORDERED: CEFTRIAXONE 1 GM in DEXTROSE 5%-WATER - 50 ML IVPB ONE (18:38)
[2017-03-23] MEDS ORDERED: CEFTRIAXONE 50 ML ONE (18:44)
== END 2017-03-23 19:29 | disposition home or self-care (01) ==
LOC: JER 14:48
PROC: 3E0337Z Introduction of Electrolytic and Water Balance Substance into Peripheral Vein, Percutaneous Approach (ICD-10-PCS; principal; 2017-03-23)
PROC: 3E03329 Introduction of Other Anti-infective into Peripheral Vein, Percutaneous Approach (ICD-10-PCS; 2017-03-23)
DX: N39.0 Urinary tract infection, site not specified (principal); E86.0 Dehydration; Z85.3 Personal history of malignant neoplasm of breast; Z85.038 Personal history of other malignant neoplasm of large intestine; Z85.830 Personal history of malignant neoplasm of bone; Z93.3 Colostomy status
CPT/HCPCS: 36415; 80053; 81003; 81015; 85025; 87086; 96361; 96365; 99282-25

== ENCOUNTER 2017-04-02 07:39 | Day surgery (SDC) | payer OTHER ==
[2017-04-02] MEDS ORDERED: RANITIDINE IVPB ONE (10:00)
[2017-04-02] MEDS ORDERED: DIPHENHYDRAMINE IVPB ONE (10:00)
[2017-04-02] MEDS ORDERED: SODIUM CHLORIDE 250 ML IV ONE (10:00)
[2017-04-02] MEDS ORDERED: ONDANSETRON IVPB ONE (10:00)
[2017-04-02] MEDS ORDERED: [UNRECOGNIZED DRUG - OTHER] IVPB ONE (10:00)
[2017-04-02] MEDS ORDERED: DEXAMETHASONE INJECTION 8 MG in SODIUM CHLORIDE 50 ML IVPB ONE (10:00)
[2017-04-02 10:17] LABS: MCH 32.1 pg (25.7-33.7); MCHC 34.1 g/dl (32.0-36.0); MEAN CELL VOLUME 94.3 fl (80-96); MEAN PLT VOLUME 6.5 fl (7.5-11.1); PLATELET COUNT 259 K/MM3 (134-434); RDW 15.9 % (11.6-15.6); WHITE BLOOD COUNT 4.7 K/mm3 (4.0-10.0)
[2017-04-02] MEDS ORDERED: PACLITAXEL 156 MG in SODIUM CHLORIDE 250 ML IVPB ONE (10:30)
[2017-04-02 10:38] LABS: ALBUMIN 3.6 g/dl (3.4-5.0); ALK PHOS 80 U/L (45-117); ANION GAP 9 (8-16); BILIRUBIN,TOTAL 0.3 mg/dL (0.2-1.0); CALCIUM 9.1 mg/dL (8.5-10.1); CO2 24 mmol/L (21-32); CREATININE 1.3 mg/dL (0.55-1.02); GLUCOSE,RANDOM 92 mg/dL (74-106); SGOT/AST 31 U/L (15-37); SGPT/ALT 18 U/L (12-78); TOT PROT 7.1 g/dl (6.4-8.2)
[2017-04-02 10:45] LABS: BILIRUBIN,DIRECT < 0.1 mg/dL (0.0-0.2)
[2017-04-02 10:51] LABS: PLATELET ESTIMATE ADEQUATE (NORMAL)
[2017-04-02 15:07] VITALS: TEMP 98.3
[2017-04-02 15:18] VITALS: BP 147/90; PULSE 82
== END 2017-04-02 16:40 | disposition home or self-care (01) ==
LOC: JONCCHEMO 07:39 → J7W 11:38 → JONCCHEMO 16:40
PROVIDERS: ATTEND Internal Medicine Hematology & Oncology
DX: Z51.11 Encounter for antineoplastic chemotherapy (principal); C50.311 Malignant neoplasm of lower-inner quadrant of right female breast; C79.89 Secondary malignant neoplasm of other specified sites; D70.1 Agranulocytosis secondary to cancer chemotherapy
CPT/HCPCS: 36415; 80053; 80076; 83735; 85025; 96361; 96367; 96375; 96413

== ENCOUNTER 2017-04-16 07:39 | Day surgery (SDC) | payer OTHER ==
[2017-04-16] MEDS ORDERED: ONDANSETRON IVPB ONE (10:00)
[2017-04-16] MEDS ORDERED: SODIUM CHLORIDE 250 ML IV ONE (10:00)
[2017-04-16] MEDS ORDERED: DIPHENHYDRAMINE IVPB ONE (10:00)
[2017-04-16] MEDS ORDERED: RANITIDINE IVPB ONE (10:00)
[2017-04-16] MEDS ORDERED: DEXAMETHASONE INJECTION 8 MG in SODIUM CHLORIDE 50 ML IVPB ONE (10:00)
[2017-04-16] MEDS ORDERED: [UNRECOGNIZED DRUG - OTHER] IVPB ONE (10:00)
[2017-04-16 10:17] LABS: BASOPHIL 0.8 % (0-2.0); EOSINOPHIL 2.5 % (0-4.5); MCH 32.3 pg (25.7-33.7); MCHC 33.9 g/dl (32.0-36.0); MEAN CELL VOLUME 95.2 fl (80-96); MEAN PLT VOLUME 6.6 fl (7.5-11.1); NEUTROPHILS 56.8 % (42.8-82.8); PLATELET COUNT 253 K/MM3 (134-434); RDW 15.8 % (11.6-15.6); WHITE BLOOD COUNT 3.8 K/mm3 (4.0-10.0)
[2017-04-16] MEDS ORDERED: PACLITAXEL 156 MG in SODIUM CHLORIDE 250 ML IVPB ONE (10:30)
[2017-04-16 10:40] LABS: ALBUMIN 3.7 g/dl (3.4-5.0); ALK PHOS 74 U/L (45-117); ANION GAP 5 (8-16); BILIRUBIN,DIRECT 0.2 mg/dL (0.0-0.2); BILIRUBIN,TOTAL 0.5 mg/dL (0.2-1.0); CALCIUM 9.2 mg/dL (8.5-10.1); CO2 29 mmol/L (21-32); CREATININE 1.3 mg/dL (0.55-1.02); GLUCOSE,RANDOM 93 mg/dL (74-106); MAGNESIUM 2.1 mg/dL (1.8-2.4); SGOT/AST 25 U/L (15-37); SGPT/ALT 17 U/L (12-78); TOT PROT 6.9 g/dl (6.4-8.2)
[2017-04-16] MEDS ORDERED: PORTA CATH FLUSH 10 ML IVPUSH ONE (16:01)
[2017-04-16 18:18] VITALS: BP 143/90; PULSE 68; TEMP 98.9
== END 2017-04-16 18:19 | disposition home or self-care (01) ==
LOC: JONCCHEMO 07:39 → J7W 11:38 → JONCCHEMO 18:19
PROVIDERS: ATTEND Internal Medicine Hematology & Oncology
DX: Z51.11 Encounter for antineoplastic chemotherapy (principal); C50.311 Malignant neoplasm of lower-inner quadrant of right female breast; C79.89 Secondary malignant neoplasm of other specified sites; D70.1 Agranulocytosis secondary to cancer chemotherapy
CPT/HCPCS: 36415; 80053; 80076; 83735; 85025; 96361; 96367; 96375; 96413

== ENCOUNTER 2017-05-02 07:20 | Day surgery (SDC) | payer OTHER ==
[2017-05-02] MEDS ORDERED: SODIUM CHLORIDE 250 ML IV ONE (08:00)
[2017-05-02] MEDS ORDERED: DEXAMETHASONE INJECTION 8 MG in SODIUM CHLORIDE 50 ML IVPB ONE (08:30)
[2017-05-02] MEDS ORDERED: [UNRECOGNIZED DRUG - OTHER] IVPB ONE (08:30)
[2017-05-02] MEDS ORDERED: ONDANSETRON IVPB ONE (08:30)
[2017-05-02] MEDS ORDERED: RANITIDINE IVPB ONE (08:30)
[2017-05-02] MEDS ORDERED: DIPHENHYDRAMINE IVPB ONE (08:30)
[2017-05-02] MEDS ORDERED: PACLITAXEL 156 MG in SODIUM CHLORIDE 250 ML IVPB ONE (09:00)
[2017-05-02 12:28] LABS: EOSINOPHIL 3.2 % (0-4.5); MCH 32.1 pg (25.7-33.7); MCHC 33.2 g/dl (32.0-36.0); MEAN CELL VOLUME 96.7 fl (80-96); MEAN PLT VOLUME 6.6 fl (7.5-11.1); NEUTROPHILS 53.8 % (42.8-82.8); PLATELET COUNT 232 K/MM3 (134-434); RDW 16.1 % (11.6-15.6); WHITE BLOOD COUNT 3.5 K/mm3 (4.0-10.0)
[2017-05-02 12:48] LABS: ALBUMIN 3.6 g/dl (3.4-5.0); ALK PHOS 78 U/L (45-117); ANION GAP 8 (8-16); BILIRUBIN,TOTAL 0.4 mg/dL (0.2-1.0); CALCIUM 8.8 mg/dL (8.5-10.1); CO2 25 mmol/L (21-32); CREATININE 1.2 mg/dL (0.55-1.02); GLUCOSE,RANDOM 93 mg/dL (74-106); MAGNESIUM 1.9 mg/dL (1.8-2.4); SGOT/AST 20 U/L (15-37); SGPT/ALT 18 U/L (12-78); TOT PROT 6.7 g/dl (6.4-8.2)
[2017-05-02 17:53] VITALS: BP 153/89; PULSE 77; TEMP 97.9
== END 2017-05-02 16:00 | disposition home or self-care (01) ==
LOC: JONCCHEMO 07:20 → J7W 11:36 → JONCCHEMO 16:00
PROVIDERS: ATTEND Internal Medicine Hematology & Oncology
DX: Z51.11 Encounter for antineoplastic chemotherapy (principal); C50.311 Malignant neoplasm of lower-inner quadrant of right female breast; C79.89 Secondary malignant neoplasm of other specified sites; D70.1 Agranulocytosis secondary to cancer chemotherapy
CPT/HCPCS: 36415; 80053; 83735; 85025; 96361; 96375; 96413

== ENCOUNTER 2017-05-11 06:23 | Day surgery (SDC) | payer OTHER ==
[2017-05-08 15:00] VITALS: BMI 31.2
[2017-05-11] MEDS ORDERED: LIDOCAINE HCL/PF 2% SDV 5ML VIAL ONE (08:04)
[2017-05-11] MEDS ORDERED: MIDAZOLAM HCL 2 MG/2 ML SINGLE DOSE VIAL ONE (08:04)
[2017-05-11] MEDS ORDERED: PROPOFOL 20 ML ONE ×2 (08:04)
[2017-05-11] MEDS ORDERED: IBUPROFEN 800 MG/8 ML IJ IVPB PRN (08:08)
[2017-05-11] MEDS ORDERED: ACETAMINOPHEN 1000 MG/100 ML VIAL (NON FORMULARY) IVPB ONE (08:08)
--- NOTE | 2017-05-11 08:09 | HP ---
History & Physical Update - History History: No Change - Physical Physical: No Change - Assessment Assessment: No Change - Plan Plan: No Change
[2017-05-11] MEDS ORDERED: DEXTROSE 5%-0.45% SALINE 1,000 ML IV SCH (08:15)
[2017-05-11] MEDS ORDERED: ceFAZolin SODIUM 1 GM VIAL IVPB ONE (08:18)
[2017-05-11] MEDS ORDERED: ceFAZolin SODIUM 1 GM VIAL ONE (08:19)
[2017-05-11] MEDS ORDERED: oxyCODONE HCL 5 MG TABLET PO PRN (08:57)
[2017-05-11] MEDS ORDERED: ONDANSETRON 4 MG/2 ML VIAL IVPUSH PRN (08:57)
[2017-05-11] MEDS ORDERED: LACTATED RINGERS SOLUTION 1,000 ML IV SCH (09:00)
[2017-05-11] MEDS ORDERED: IBUPROFEN 800 MG/8 ML IJ IVPB ONE (09:11)
[2017-05-11] MEDS ORDERED: ACETAMINOPHEN INJECTION 100 ML IVPB ONE (09:11)
[2017-05-11 09:46] VITALS: TEMP 97.6
[2017-05-11] MEDS ORDERED: ACETAMINOPHEN 500 MG TABLET (FP) PO PRN (13:00)
[2017-05-11 14:11] VITALS: BP 148/75; PULSE 76
--- NOTE | 2017-05-14 13:26 | PATH ---
Surgical Pathology Report Patient Name: NAOPLEON LIEBERMAN [facility]. Rec. #: [id number] /Age/Gender: 1945 (Age: 71) / F Account: [id number] Location: U SURGICAL Taken: 05/11/2017 Received: 05/11/2017 Reported: 05/14/2017 Physicians: Mariano Stein M.D. Specimen(s) Received A: RIGHT REMOVED STENT B: LEFT REMOVED STENT Clinical History Hydronephrosis Final Diagnosis A. STENT, RIGHT, REMOVAL: STENT (GROSS EXAM). B. SKIN, LEFT, REMOVAL: STENT (GROSS EXAM). Electronically Signed George Chavez M.D. Gross Description A. Received fresh labeled "right stent" is a 34 cm in length pagan metallic, coiled tube, consistent with a ureteral stent. No soft tissue is present. No sections are submitted, gross only. B. Received fresh labeled "left stent" is a 34 cm in length pagan metallic, coiled tube, consistent with a ureteral stent. No soft tissue is present. No sections are submitted, gross only. /05/11/2017 saudi05/11/2017
--- NOTE | 2017-05-24 12:27 | OP ---
DATE OF OPERATION: 05/11/2017 PREOPERATIVE DIAGNOSIS: Bilateral hydronephrosis from extrinsic ureteral compression from cancer. POSTOPERATIVE DIAGNOSIS: Bilateral hydronephrosis from extrinsic ureteral compression from cancer. PROCEDURE: Bilateral ureteral stent replacement. ANESTHESIA: General. SURGEON: Mariano Stein MD SPECIMENS: Previous ureteral stents. DRAINS: 6 x 24 double-J ureteral metal stents. PREOPERATIVE INDICATIONS: The patient is a 71-year-old female with history of breast cancer who has bilateral external compression of her ureters. This results in hydronephrosis and UTIs and decreased renal function. She is managed with longstanding indwelling stents and is coming now for change of her metal ureteral stent. THE OPERATION: The patient was brought to the OR, placed on the table in the supine position, given general anesthesia and placed in the modified lithotomy position. The groin was prepped and draped sterilely. Cystoscopy was performed. Both stents were seen emerging from the UOs respectively. These were removed with the grasping forceps. On the right side, a wire was passed up into the right kidney. Over that, a sheath for a retrograde pyelogram to find the system. There was hydronephrosis. Through the sheath, a 6 x 24 double-J metal stent was placed in good position seen on fluoroscopy and direct vision. On the left side, this was done similarly. A wire was passed up into the left kidney. Over that, the sheath was placed, and retrograde pyelogram was performed to find the system and reveal hydronephrosis. A 6 x 24 double-J metal stent was placed, one loop in the kidney and the renal pelvis and one loop in the bladder. The bladder was emptied, the patient was woken up. MARIANO STEIN M.D. [id number]
== END 2017-05-11 12:00 | disposition home or self-care (01) ==
LOC: JASU-SURG 06:23
PROVIDERS: ATTEND Urology
PROC: 0T787DZ Dilation of Bilateral Ureters with Intraluminal Device, Via Natural or Artificial Opening (ICD-10-PCS; 2017-05-11)
PROC: 0TP97DZ Removal of Intraluminal Device from Ureter, Via Natural or Artificial Opening (ICD-10-PCS; principal; 2017-05-11 08:00)
DX: N13.39 Other hydronephrosis (principal); Z85.3 Personal history of malignant neoplasm of breast; Z87.440 Personal history of urinary (tract) infections
CPT/HCPCS: 76000-TC; 88300-TC; 94760

== ENCOUNTER 2017-05-14 07:53 | Day surgery (SDC) | payer OTHER ==
[2017-05-14] MEDS ORDERED: SODIUM CHLORIDE 250 ML IV ONE (08:00)
[2017-05-14] MEDS ORDERED: DIPHENHYDRAMINE IVPB ONE (08:30)
[2017-05-14] MEDS ORDERED: RANITIDINE IVPB ONE (08:30)
[2017-05-14] MEDS ORDERED: [UNRECOGNIZED DRUG - OTHER] IVPB ONE (08:30)
[2017-05-14] MEDS ORDERED: ONDANSETRON IVPB ONE (08:30)
[2017-05-14] MEDS ORDERED: DEXAMETHASONE INJECTION 8 MG in SODIUM CHLORIDE 50 ML IVPB ONE (08:30)
[2017-05-14] MEDS ORDERED: PACLITAXEL 156 MG in SODIUM CHLORIDE 250 ML IVPB ONE (09:00)
[2017-05-14 09:55] LABS: EOSINOPHIL 2.9 % (0-4.5); MCH 32.7 pg (25.7-33.7); MCHC 34.2 g/dl (32.0-36.0); MEAN CELL VOLUME 95.8 fl (80-96); MEAN PLT VOLUME 6.4 fl (7.5-11.1); NEUTROPHILS 65.9 % (42.8-82.8); PLATELET COUNT 236 K/MM3 (134-434); RDW 16.3 % (11.6-15.6); WHITE BLOOD COUNT 3.9 K/mm3 (4.0-10.0)
[2017-05-14 10:35] LABS: ALBUMIN 3.5 g/dl (3.4-5.0); ANION GAP 9 (8-16); BILIRUBIN,DIRECT 0.1 mg/dL (0.0-0.2); BILIRUBIN,TOTAL 0.4 mg/dL (0.2-1.0); CALCIUM 8.6 mg/dL (8.5-10.1); CO2 25 mmol/L (21-32); CREATININE 1.3 mg/dL (0.55-1.02); GLUCOSE,RANDOM 98 mg/dL (74-106); SGOT/AST 25 U/L (15-37); SGPT/ALT 16 U/L (12-78); TOT PROT 6.7 g/dl (6.4-8.2)
[2017-05-14 10:36] LABS: ALK PHOS 83 U/L (45-117)
[2017-05-14 12:37] VITALS: TEMP 98.3
[2017-05-14] MEDS ORDERED: PORTA CATH FLUSH 10 ML IVPUSH ONE (12:41)
[2017-05-14 15:39] VITALS: BP 144/92; PULSE 76
== END 2017-05-14 15:40 | disposition home or self-care (01) ==
LOC: JONCCHEMO 07:53 → J7W 11:55 → JONCCHEMO 15:40
PROVIDERS: ATTEND Internal Medicine Hematology & Oncology
DX: Z51.11 Encounter for antineoplastic chemotherapy (principal); C50.311 Malignant neoplasm of lower-inner quadrant of right female breast; C79.89 Secondary malignant neoplasm of other specified sites; D70.1 Agranulocytosis secondary to cancer chemotherapy
CPT/HCPCS: 36415; 80053; 80076; 82306; 82378; 83735; 85025; 86300; 96361; 96367; 96375; 96413; 96415

== ENCOUNTER 2017-05-28 07:35 | Day surgery (SDC) | payer OTHER ==
[2017-05-28 09:46] VITALS: TEMP 98.3
[2017-05-28] MEDS ORDERED: DEXAMETHASONE INJECTION 8 MG in SODIUM CHLORIDE 50 ML IVPB ONE (10:00)
[2017-05-28] MEDS ORDERED: [UNRECOGNIZED DRUG - OTHER] IVPB ONE (10:00)
[2017-05-28] MEDS ORDERED: SODIUM CHLORIDE 250 ML IV ONE (10:00)
[2017-05-28] MEDS ORDERED: DIPHENHYDRAMINE IVPB ONE (10:00)
[2017-05-28] MEDS ORDERED: ONDANSETRON IVPB ONE (10:00)
[2017-05-28] MEDS ORDERED: RANITIDINE IVPB ONE (10:00)
[2017-05-28 10:25] LABS: BASOPHIL 1.1 % (0-2.0); EOSINOPHIL 1.4 % (0-4.5); MCH 32.8 pg (25.7-33.7); MCHC 34.1 g/dl (32.0-36.0); MEAN CELL VOLUME 96.4 fl (80-96); MEAN PLT VOLUME 6.6 fl (7.5-11.1); NEUTROPHILS 67.6 % (42.8-82.8); PLATELET COUNT 221 K/MM3 (134-434); RDW 16.1 % (11.6-15.6); WHITE BLOOD COUNT 4.6 K/mm3 (4.0-10.0)
[2017-05-28] MEDS ORDERED: PACLITAXEL 156 MG in SODIUM CHLORIDE 250 ML IVPB ONE (10:30)
[2017-05-28 10:52] LABS: ALBUMIN 3.8 g/dl (3.4-5.0); ALK PHOS 76 U/L (45-117); ANION GAP 11 (8-16); BILIRUBIN,DIRECT 0.1 mg/dL (0.0-0.2); BILIRUBIN,TOTAL 0.6 mg/dL (0.2-1.0); CALCIUM 9.3 mg/dL (8.5-10.1); CO2 26 mmol/L (21-32); CREATININE 1.4 mg/dL (0.55-1.02); GLUCOSE,RANDOM 86 mg/dL (74-106); SGOT/AST 26 U/L (15-37); SGPT/ALT 17 U/L (12-78)
[2017-05-28 16:38] VITALS: BP 151/96; PULSE 70
[2017-05-28] MEDS ORDERED: PORTA CATH FLUSH 10 ML IVPUSH ONE (16:38)
== END 2017-05-28 15:00 | disposition home or self-care (01) ==
LOC: JONCCHEMO 07:35 → J7W 10:49 → JONCCHEMO 15:00
PROVIDERS: ATTEND Internal Medicine Hematology & Oncology
DX: Z51.11 Encounter for antineoplastic chemotherapy (principal); C50.311 Malignant neoplasm of lower-inner quadrant of right female breast; C79.89 Secondary malignant neoplasm of other specified sites; D70.1 Agranulocytosis secondary to cancer chemotherapy
CPT/HCPCS: 36415; 80053; 80076; 82378; 83735; 85025; 86300; 96361; 96367; 96375; 96413; 96415

== ENCOUNTER 2017-06-11 07:33 | Day surgery (SDC) | payer OTHER ==
[2017-06-11] MEDS ORDERED: RANITIDINE IVPB ONE (10:00)
[2017-06-11] MEDS ORDERED: DEXAMETHASONE INJECTION 8 MG in SODIUM CHLORIDE 50 ML IVPB ONE (10:00)
[2017-06-11] MEDS ORDERED: SODIUM CHLORIDE 250 ML IV ONE (10:00)
[2017-06-11] MEDS ORDERED: ONDANSETRON IVPB ONE (10:00)
[2017-06-11] MEDS ORDERED: DIPHENHYDRAMINE IVPB ONE (10:00)
[2017-06-11] MEDS ORDERED: [UNRECOGNIZED DRUG - OTHER] IVPB ONE (10:00)
[2017-06-11 10:29] LABS: BASOPHIL 1.2 % (0-2.0); EOSINOPHIL 2.1 % (0-4.5); MCH 32.2 pg (25.7-33.7); MCHC 33.1 g/dl (32.0-36.0); MEAN CELL VOLUME 97.1 fl (80-96); MEAN PLT VOLUME 6.6 fl (7.5-11.1); PLATELET COUNT 233 K/MM3 (134-434); RDW 15.5 % (11.6-15.6); WHITE BLOOD COUNT 3.9 K/mm3 (4.0-10.0)
[2017-06-11] MEDS ORDERED: PACLITAXEL 156 MG in SODIUM CHLORIDE 250 ML IVPB ONE (10:30)
[2017-06-11 10:53] LABS: ALBUMIN 3.5 g/dl (3.4-5.0); ANION GAP 7 (8-16); BILIRUBIN,DIRECT 0.1 mg/dL (0.0-0.2); BILIRUBIN,TOTAL 0.5 mg/dL (0.2-1.0); CALCIUM 8.8 mg/dL (8.5-10.1); CO2 26 mmol/L (21-32); CREATININE 1.2 mg/dL (0.55-1.02); GLUCOSE,RANDOM 90 mg/dL (74-106); MAGNESIUM 2.1 mg/dL (1.8-2.4); SGOT/AST 26 U/L (15-37); SGPT/ALT 18 U/L (12-78); TOT PROT 6.7 g/dl (6.4-8.2)
[2017-06-11 10:54] LABS: ALK PHOS 78 U/L (45-117)
[2017-06-11 12:42] VITALS: TEMP 98.9
[2017-06-11] MEDS ORDERED: PORTA CATH FLUSH 10 ML IVPUSH ONE (13:37)
[2017-06-11] MEDS ORDERED: amLODIPine BESYLATE 5 MG TABLET (FP) PO ONE (15:35)
[2017-06-11 17:58] VITALS: BP 147/86; PULSE 82
== END 2017-06-11 17:00 | disposition home or self-care (01) ==
LOC: JONCCHEMO 07:33 → J7W 11:37 → JONCCHEMO 17:00
PROVIDERS: ATTEND Internal Medicine Hematology & Oncology
DX: Z51.11 Encounter for antineoplastic chemotherapy (principal); C50.311 Malignant neoplasm of lower-inner quadrant of right female breast; C79.89 Secondary malignant neoplasm of other specified sites; D70.1 Agranulocytosis secondary to cancer chemotherapy
CPT/HCPCS: 36415; 80053; 80076; 83735; 85025; 96361; 96367; 96375; 96413

== ENCOUNTER 2017-07-23 07:28 | Day surgery (SDC) | payer OTHER ==
[2017-07-23] MEDS ORDERED: SODIUM CHLORIDE 250 ML IV ONE ×2 (08:00→09:30)
[2017-07-23] MEDS ORDERED: DEXAMETHASONE INJECTION 10 MG, ONDANSETRON INJECTION 12 MG in SODIUM CHLORIDE 100 ML IVPB ONE (08:30)
[2017-07-23] MEDS ORDERED: GEMCITABINE HCL 1,482 MG in SODIUM CHLORIDE 250 ML IV ONE (09:00)
[2017-07-23 09:07] LABS: BASOPHIL 0.2 % (0-2.0); MCH 32.4 pg (25.7-33.7); MCHC 33.5 g/dl (32.0-36.0); MEAN CELL VOLUME 96.8 fl (80-96); MEAN PLT VOLUME 6.7 fl (7.5-11.1); NEUTROPHILS 91.4 % (42.8-82.8); PLATELET COUNT 248 K/MM3 (134-434); RDW 14.8 % (11.6-15.6); WHITE BLOOD COUNT 11.4 K/mm3 (4.0-10.0)
[2017-07-23 09:58] LABS: ALBUMIN 3.5 g/dl (3.4-5.0); ALK PHOS 61 U/L (45-117); ANION GAP 9 (8-16); BILIRUBIN,DIRECT 0.2 mg/dL (0.0-0.2); BILIRUBIN,TOTAL 0.6 mg/dL (0.2-1.0); CALCIUM 8.6 mg/dL (8.5-10.1); CO2 26 mmol/L (21-32); CREATININE 1.9 mg/dL (0.55-1.02); GLUCOSE,RANDOM 120 mg/dL (74-106); MAGNESIUM 1.8 mg/dL (1.8-2.4); SGOT/AST 24 U/L (15-37); SGPT/ALT 17 U/L (12-78)
[2017-07-23] MEDS ORDERED: D5-NS + 20 MEQ KCL - 20 MEQ/1,000 ML INFUS.BAG IV ONE ×2 (10:00→16:45)
[2017-07-23 17:21] VITALS: BP 129/70; PULSE 94; TEMP 99.5
[2017-07-23] MEDS ORDERED: PORTA CATH FLUSH 10 ML IVPUSH ONE (17:21)
== END 2017-07-23 17:24 | disposition home or self-care (01) ==
LOC: JONCCHEMO 07:28 → J7W 09:43 → JONCCHEMO 17:24
PROVIDERS: ATTEND Internal Medicine Hematology & Oncology
DX: Z51.11 Encounter for antineoplastic chemotherapy (principal); C50.311 Malignant neoplasm of lower-inner quadrant of right female breast; C79.89 Secondary malignant neoplasm of other specified sites; D70.1 Agranulocytosis secondary to cancer chemotherapy
CPT/HCPCS: 36415; 80053; 80076; 83735; 85025; 96361; 96367; 96375; 96413

== ENCOUNTER 2017-07-30 07:18 | Day surgery (SDC) | payer OTHER ==
[2017-07-30] MEDS ORDERED: SODIUM CHLORIDE 250 ML IV ONE ×2 (08:00→09:30)
[2017-07-30] MEDS ORDERED: DEXAMETHASONE INJECTION 10 MG, ONDANSETRON INJECTION 12 MG in SODIUM CHLORIDE 100 ML IVPB ONE (08:30)
[2017-07-30] MEDS ORDERED: GEMCITABINE HCL 1,482 MG in SODIUM CHLORIDE 250 ML IV ONE (09:00)
[2017-07-30 09:37] VITALS: TEMP 98.1
[2017-07-30 10:19] LABS: BASOPHIL 0.7 % (0-2.0); EOSINOPHIL 2.1 % (0-4.5); MCH 32.5 pg (25.7-33.7); MCHC 33.7 g/dl (32.0-36.0); MEAN CELL VOLUME 96.5 fl (80-96); MEAN PLT VOLUME 6.4 fl (7.5-11.1); NEUTROPHILS 48.2 % (42.8-82.8); PLATELET COUNT 173 K/MM3 (134-434); RDW 14.1 % (11.6-15.6); WHITE BLOOD COUNT 2.6 K/mm3 (4.0-10.0)
[2017-07-30 10:43] LABS: ALBUMIN 3.3 g/dl (3.4-5.0); ALK PHOS 85 U/L (45-117); ANION GAP 10 (8-16); BILIRUBIN,DIRECT < 0.2 mg/dL (0.0-0.2); BILIRUBIN,TOTAL 0.4 mg/dL (0.2-1.0); CALCIUM 8.4 mg/dL (8.5-10.1); CO2 22 mmol/L (21-32); CREATININE 1.5 mg/dL (0.55-1.02); GLUCOSE,RANDOM 90 mg/dL (74-106); MAGNESIUM 1.9 mg/dL (1.8-2.4); SGOT/AST 28 U/L (15-37); SGPT/ALT 19 U/L (12-78); TOT PROT 6.6 g/dl (6.4-8.2)
[2017-07-30] MEDS ORDERED: PORTA CATH FLUSH 10 ML IVPUSH ONE (14:20)
[2017-07-30 16:46] VITALS: BP 143/90; PULSE 84
== END 2017-07-30 14:35 | disposition home or self-care (01) ==
LOC: JONCCHEMO 07:18 → J7W 10:40 → JONCCHEMO 14:35
PROVIDERS: ATTEND Internal Medicine Hematology & Oncology
DX: Z51.11 Encounter for antineoplastic chemotherapy (principal); C50.311 Malignant neoplasm of lower-inner quadrant of right female breast; C79.89 Secondary malignant neoplasm of other specified sites; D70.1 Agranulocytosis secondary to cancer chemotherapy
CPT/HCPCS: 36415; 80053; 80076; 83735; 85025; 96361; 96366; 96367; 96375; 96413

== ENCOUNTER 2017-07-31 07:29 | Day surgery (SDC) | payer OTHER ==
[2017-07-31] MEDS ORDERED: PEGFILGRASTIM 6 MG/0.6 ML DISP.SYRIN SQ ONE (08:00)
[2017-07-31 14:13] VITALS: BP 112/76; PULSE 93; TEMP 98.5
== END 2017-07-31 12:10 | disposition home or self-care (01) ==
LOC: JONCCHEMO 07:29
PROVIDERS: ATTEND Internal Medicine Hematology & Oncology
PROC: 3E013GC Introduction of Other Therapeutic Substance into Subcutaneous Tissue, Percutaneous Approach (ICD-10-PCS; principal; 2017-07-31)
DX: C50.311 Malignant neoplasm of lower-inner quadrant of right female breast (principal); C79.89 Secondary malignant neoplasm of other specified sites; D70.1 Agranulocytosis secondary to cancer chemotherapy
CPT/HCPCS: 96372; J2505

== ENCOUNTER 2017-08-13 07:24 | Day surgery (SDC) | payer OTHER ==
[2017-08-13] MEDS ORDERED: SODIUM CHLORIDE 250 ML IV ONE ×2 (08:00→09:30)
[2017-08-13] MEDS ORDERED: DEXAMETHASONE INJECTION 10 MG, ONDANSETRON INJECTION 12 MG in SODIUM CHLORIDE 100 ML IVPB ONE (08:30)
[2017-08-13] MEDS ORDERED: GEMCITABINE HCL 1,482 MG in SODIUM CHLORIDE 250 ML IV ONE (09:00)
[2017-08-13 10:09] LABS: BASO % 0.3 % (0-2.0); EOS % 1.5 % (0-4.5); MCHC 33.9 g/dl (32.0-36.0); MEAN CELL VOLUME 97.2 fl (80-96); MEAN PLT VOLUME 6.8 fl (7.5-11.1); NEUT % 76.6 % (42.8-82.8); PLATELET COUNT 326 K/MM3 (134-434); RDW 15.1 % (11.6-15.6)
[2017-08-13 10:39] LABS: ALBUMIN 3.5 g/dl (3.4-5.0); ALK PHOS 88 U/L (45-117); ANION GAP 9 (8-16); BILIRUBIN,DIRECT < 0.2 mg/dL (0.0-0.2); BILIRUBIN,TOTAL 0.3 mg/dL (0.2-1.0); CALCIUM 8.8 mg/dL (8.5-10.1); CO2 22 mmol/L (21-32); CREATININE 1.1 mg/dL (0.55-1.02); GLUCOSE,RANDOM 90 mg/dL (74-106); SGOT/AST 34 U/L (15-37); SGPT/ALT 22 U/L (12-78); TOT PROT 6.6 g/dl (6.4-8.2)
[2017-08-13 16:56] VITALS: BP 138/76; PULSE 67; TEMP 98
[2017-08-13] MEDS ORDERED: PORTA CATH FLUSH 10 ML IVPUSH ONE (17:55)
== END 2017-08-13 15:30 | disposition home or self-care (01) ==
LOC: JONCCHEMO 07:24 → J7W 10:53 → JONCCHEMO 15:30
PROVIDERS: ATTEND Internal Medicine Hematology & Oncology
DX: Z51.11 Encounter for antineoplastic chemotherapy (principal); C50.311 Malignant neoplasm of lower-inner quadrant of right female breast; C79.89 Secondary malignant neoplasm of other specified sites; D70.1 Agranulocytosis secondary to cancer chemotherapy
CPT/HCPCS: 36415; 80053; 80076; 83735; 85025; 96361; 96367; 96375; 96413

== ENCOUNTER 2017-08-22 07:32 | Day surgery (SDC) | payer OTHER ==
[2017-08-22 09:54] LABS: BASO % 0.4 % (0-2.0); HEMATOCRIT 30.8 % (32.4-45.2); HEMOGLOBIN 10.3 GM/dL (10.7-15.3); LYMPH % 13.9 % (8-40); MCH 32.5 pg (25.7-33.7); MCHC 33.3 g/dl (32.0-36.0); MEAN CELL VOLUME 97.6 fl (80-96); MEAN PLT VOLUME 6.6 fl (7.5-11.1); NEUT % 72.7 % (42.8-82.8); PLATELET COUNT 261 K/MM3 (134-434); RBC 3.15 M/mm3 (3.60-5.2); RDW 15.4 % (11.6-15.6); WHITE BLOOD COUNT 6.4 K/mm3 (4.0-10.0)
[2017-08-22] MEDS ORDERED: SODIUM CHLORIDE 250 ML IV ONE ×2 (10:00→11:00)
[2017-08-22] MEDS ORDERED: DEXAMETHASONE INJECTION 10 MG, ONDANSETRON INJECTION 12 MG in SODIUM CHLORIDE 100 ML IVPB ONE (10:00)
[2017-08-22] MEDS ORDERED: GEMCITABINE HCL 1,482 MG in SODIUM CHLORIDE 250 ML IV ONE (10:30)
[2017-08-22 10:47] LABS: ALBUMIN 3.4 g/dl (3.4-5.0); ANION GAP 8 (8-16); BILIRUBIN,DIRECT < 0.2 mg/dL (0.0-0.2); BLOOD UREA NITROGEN 21 mg/dL (7-18); CALCIUM 8.7 mg/dL (8.5-10.1); CHLORIDE 102 mmol/L (98-107); CO2 26 mmol/L (21-32); CREATININE 1.4 mg/dL (0.55-1.02); GLUCOSE,RANDOM 88 mg/dL (74-106); MAGNESIUM 1.9 mg/dL (1.8-2.4); POTASSIUM 4.2 mmol/L (3.5-5.1); SGOT/AST 39 U/L (15-37); SGPT/ALT 30 U/L (12-78); SODIUM 136 mmol/L (136-145)
[2017-08-22 10:49] LABS: ALK PHOS 79 U/L (45-117); BILIRUBIN,TOTAL 0.5 mg/dL (0.2-1.0); TOT PROT 6.6 g/dl (6.4-8.2)
[2017-08-22 12:03] VITALS: TEMP 97.6
[2017-08-22 17:38] VITALS: BP 126/78; PULSE 94
[2017-08-22] MEDS ORDERED: PORTA CATH FLUSH 10 ML IVPUSH ONE (17:38)
== END 2017-08-22 14:30 | disposition home or self-care (01) ==
LOC: JONCCHEMO 07:32 → J7W 10:46 → JONCCHEMO 14:30
PROVIDERS: ATTEND Internal Medicine Hematology & Oncology
DX: Z51.11 Encounter for antineoplastic chemotherapy (principal); C50.311 Malignant neoplasm of lower-inner quadrant of right female breast; C79.89 Secondary malignant neoplasm of other specified sites; D70.1 Agranulocytosis secondary to cancer chemotherapy
CPT/HCPCS: 36415; 80053; 80076; 83735; 85025; 96361; 96367; 96375; 96413

== ENCOUNTER 2017-08-23 07:34 | Day surgery (SDC) | payer OTHER ==
[2017-08-23] MEDS ORDERED: PEGFILGRASTIM 6 MG/0.6 ML DISP.SYRIN SQ ONE (10:00)
[2017-08-23 11:29] VITALS: BP 145/76; PULSE 95; TEMP 98.3
== END 2017-08-23 11:32 | disposition home or self-care (01) ==
LOC: JONCCHEMO 07:34 → J7W 11:15 → JONCCHEMO 11:32
PROVIDERS: ATTEND Internal Medicine Hematology & Oncology
PROC: 3E013GC Introduction of Other Therapeutic Substance into Subcutaneous Tissue, Percutaneous Approach (ICD-10-PCS; principal; 2017-08-23)
DX: C50.311 Malignant neoplasm of lower-inner quadrant of right female breast (principal); Z76.89 Persons encountering health services in other specified circumstances
CPT/HCPCS: 96372; J2505

== ENCOUNTER 2017-09-03 07:29 | Day surgery (SDC) | payer OTHER ==
[2017-09-03] MEDS ORDERED: DEXAMETHASONE INJECTION 10 MG, ONDANSETRON INJECTION 12 MG in SODIUM CHLORIDE 250 ML IVPB ONE (10:00)
[2017-09-03] MEDS ORDERED: GEMCITABINE HCL 1,482 MG in SODIUM CHLORIDE 250 ML IV ONE (11:00)
[2017-09-03] MEDS ORDERED: SODIUM CHLORIDE 250 ML IV ONE (11:30)
[2017-09-03 12:36] LABS: BASO % 0.3 % (0-2.0); EOS % 1.2 % (0-4.5); HEMATOCRIT 30.3 % (32.4-45.2); HEMOGLOBIN 10.1 GM/dL (10.7-15.3); LYMPH % 10.1 % (8-40); MCH 33.5 pg (25.7-33.7); MCHC 33.4 g/dl (32.0-36.0); MEAN CELL VOLUME 100.4 fl (80-96); MEAN PLT VOLUME 7.3 fl (7.5-11.1); MONO % 7.9 % (3.8-10.2); NEUT % 80.5 % (42.8-82.8); PLATELET COUNT 261 K/MM3 (134-434); RBC 3.02 M/mm3 (3.60-5.2); RDW 17.9 % (11.6-15.6); WHITE BLOOD COUNT 10.9 K/mm3 (4.0-10.0)
[2017-09-03 12:55] LABS: ALBUMIN 3.4 g/dl (3.4-5.0); ANION GAP 10 (8-16); BILIRUBIN,DIRECT < 0.2 mg/dL (0.0-0.2); BILIRUBIN,TOTAL 0.6 mg/dL (0.2-1.0); BLOOD UREA NITROGEN 15 mg/dL (7-18); CALCIUM 8.7 mg/dL (8.5-10.1); CHLORIDE 100 mmol/L (98-107); CO2 25 mmol/L (21-32); CREATININE 1.2 mg/dL (0.55-1.02); GLUCOSE,RANDOM 79 mg/dL (74-106); POTASSIUM 4.1 mmol/L (3.5-5.1); SGOT/AST 31 U/L (15-37); SGPT/ALT 25 U/L (12-78); SODIUM 135 mmol/L (136-145)
[2017-09-03 12:56] LABS: ALK PHOS 106 U/L (45-117); TOT PROT 6.5 g/dl (6.4-8.2)
[2017-09-03 14:40] VITALS: TEMP 98.1
[2017-09-03 14:53] VITALS: BP 144/80; PULSE 83
[2017-09-03] MEDS ORDERED: PORTA CATH FLUSH 10 ML IVPUSH ONE (14:53)
== END 2017-09-03 14:15 | disposition home or self-care (01) ==
LOC: JONCCHEMO 07:29 → J7W 11:41 → JONCCHEMO 14:15
PROVIDERS: ATTEND Internal Medicine Hematology & Oncology
PROC: 3E04305 Introduction of Other Antineoplastic into Central Vein, Percutaneous Approach (ICD-10-PCS; principal; 2017-09-03)
PROC: 3E043GC Introduction of Other Therapeutic Substance into Central Vein, Percutaneous Approach (ICD-10-PCS; 2017-09-03)
PROC: 3E0437Z Introduction of Electrolytic and Water Balance Substance into Central Vein, Percutaneous Approach (ICD-10-PCS; 2017-09-03)
DX: Z51.11 Encounter for antineoplastic chemotherapy (principal); C50.311 Malignant neoplasm of lower-inner quadrant of right female breast; C79.51 Secondary malignant neoplasm of bone; D70.1 Agranulocytosis secondary to cancer chemotherapy
CPT/HCPCS: 36415; 80048; 80076; 82378; 85025; 86300; 96361; 96367; 96375; 96413; J1100

== ENCOUNTER 2017-09-12 07:30 | Day surgery (SDC) | payer OTHER ==
[2017-09-12] MEDS ORDERED: SODIUM CHLORIDE 250 ML IV ONE ×2 (10:00→11:00)
[2017-09-12] MEDS ORDERED: DEXAMETHASONE INJECTION 10 MG, ONDANSETRON INJECTION 12 MG in SODIUM CHLORIDE 100 ML IVPB ONE (10:00)
[2017-09-12] MEDS ORDERED: GEMCITABINE HCL 1,482 MG in SODIUM CHLORIDE 250 ML IV ONE (10:30)
[2017-09-12 10:31] LABS: BASO % 0.7 % (0-2.0); HEMATOCRIT 30.2 % (32.4-45.2); HEMOGLOBIN 10.3 GM/dL (10.7-15.3); LYMPH % 14.2 % (8-40); MCH 34.1 pg (25.7-33.7); MCHC 34.2 g/dl (32.0-36.0); MEAN CELL VOLUME 99.6 fl (80-96); MEAN PLT VOLUME 7.2 fl (7.5-11.1); MONO % 13.7 % (3.8-10.2); NEUT % 68.4 % (42.8-82.8); PLATELET COUNT 259 K/MM3 (134-434); RBC 3.03 M/mm3 (3.60-5.2); RDW 18.6 % (11.6-15.6)
[2017-09-12 10:57] LABS: ALBUMIN 3.4 g/dl (3.4-5.0); ALK PHOS 84 U/L (45-117); ANION GAP 10 (8-16); BILIRUBIN,DIRECT < 0.2 mg/dL (0.0-0.2); BILIRUBIN,TOTAL 0.4 mg/dL (0.2-1.0); BLOOD UREA NITROGEN 19 mg/dL (7-18); CALCIUM 8.4 mg/dL (8.5-10.1); CHLORIDE 99 mmol/L (98-107); CO2 22 mmol/L (21-32); CREATININE 1.4 mg/dL (0.55-1.02); GLUCOSE,RANDOM 83 mg/dL (74-106); MAGNESIUM 1.6 mg/dL (1.8-2.4); POTASSIUM 5.3 mmol/L (3.5-5.1); SGOT/AST 35 U/L (15-37); SGPT/ALT 22 U/L (12-78); SODIUM 131 mmol/L (136-145); TOT PROT 6.7 g/dl (6.4-8.2)
[2017-09-12] MEDS ORDERED: MAGNESIUM 1GM/D5W - 1 GM/100 ML IVPB IVPB ONE (12:00)
[2017-09-12 13:08] VITALS: TEMP 99
[2017-09-12] MEDS ORDERED: PORTA CATH FLUSH 10 ML IVPUSH ONE (13:45)
[2017-09-12 17:57] VITALS: BP 136/82; PULSE 75
== END 2017-09-12 16:25 | disposition home or self-care (01) ==
LOC: JONCCHEMO 07:30 → J7W 11:16 → JONCCHEMO 16:25
PROVIDERS: ATTEND Internal Medicine Hematology & Oncology
DX: Z51.11 Encounter for antineoplastic chemotherapy (principal); C50.311 Malignant neoplasm of lower-inner quadrant of right female breast; C79.51 Secondary malignant neoplasm of bone; D70.1 Agranulocytosis secondary to cancer chemotherapy
CPT/HCPCS: 36415; 80053; 80076; 83735; 85025; 96361; 96366; 96367; 96375; 96413; 96417

== ENCOUNTER 2017-09-13 07:28 | Day surgery (SDC) | payer OTHER ==
[2017-09-13] MEDS ORDERED: PEGFILGRASTIM 6 MG/0.6 ML DISP.SYRIN SQ ONE (10:00)
[2017-09-13 10:49] VITALS: BP 128/81; PULSE 82; TEMP 98
== END 2017-09-13 10:50 | disposition home or self-care (01) ==
LOC: JONCNONCHE 07:28 → JONCCHEMO 07:28 → J7W 10:23 → JONCNONCHE 10:50
PROVIDERS: ATTEND Internal Medicine Hematology & Oncology
PROC: 3E013GC Introduction of Other Therapeutic Substance into Subcutaneous Tissue, Percutaneous Approach (ICD-10-PCS; principal; 2017-09-13)
DX: C50.311 Malignant neoplasm of lower-inner quadrant of right female breast (principal); C79.51 Secondary malignant neoplasm of bone; D70.1 Agranulocytosis secondary to cancer chemotherapy; Z76.89 Persons encountering health services in other specified circumstances
CPT/HCPCS: 96372; J2505

== ENCOUNTER 2017-09-24 07:28 | Day surgery (SDC) | payer OTHER ==
[2017-09-24] MEDS ORDERED: SODIUM CHLORIDE 250 ML IV ONE ×2 (08:00→09:30)
[2017-09-24] MEDS ORDERED: DEXAMETHASONE INJECTION 10 MG, ONDANSETRON INJECTION 12 MG in SODIUM CHLORIDE 100 ML IVPB ONE ×2 (08:30)
[2017-09-24] MEDS ORDERED: GEMCITABINE HCL 1,482 MG in SODIUM CHLORIDE 250 ML IV ONE (09:00)
[2017-09-24 10:34] LABS: BASO % 0.7 % (0-2.0); EOS % 1.4 % (0-4.5); HEMATOCRIT 30.7 % (32.4-45.2); HEMOGLOBIN 10.1 GM/dL (10.7-15.3); LYMPH % 7.3 % (8-40); MCHC 32.9 g/dl (32.0-36.0); MEAN CELL VOLUME 103.2 fl (80-96); MEAN PLT VOLUME 7.6 fl (7.5-11.1); MONO % 8.4 % (3.8-10.2); NEUT % 82.2 % (42.8-82.8); PLATELET COUNT 265 K/MM3 (134-434); RBC 2.97 M/mm3 (3.60-5.2); RDW 20.8 % (11.6-15.6); WHITE BLOOD COUNT 12.5 K/mm3 (4.0-10.0)
[2017-09-24 10:36] LABS: ADD RBC MORPHOLOGY YES
[2017-09-24 11:01] LABS: ANISOCYTOSIS 2+; MACROCYTOSIS 1+; PLATELET ESTIMATE ADEQUATE
[2017-09-24 11:34] LABS: ALBUMIN 3.3 g/dl (3.4-5.0); ANION GAP 10 (8-16); BILIRUBIN,DIRECT < 0.2 mg/dL (0.0-0.2); BILIRUBIN,TOTAL 0.3 mg/dL (0.2-1.0); BLOOD UREA NITROGEN 19 mg/dL (7-18); CHLORIDE 105 mmol/L (98-107); CO2 22 mmol/L (21-32); CREATININE 1.3 mg/dL (0.55-1.02); GLUCOSE,RANDOM 95 mg/dL (74-106); MAGNESIUM 1.9 mg/dL (1.8-2.4); POTASSIUM 5.1 mmol/L (3.5-5.1); SGOT/AST 34 U/L (15-37); SGPT/ALT 20 U/L (12-78); SODIUM 137 mmol/L (136-145)
[2017-09-24 11:35] LABS: ALK PHOS 108 U/L (45-117); TOT PROT 6.4 g/dl (6.4-8.2)
[2017-09-24 12:41] VITALS: TEMP 98.7
[2017-09-24] MEDS ORDERED: PORTA CATH FLUSH 10 ML IVPUSH ONE ×2 (12:49→16:03)
[2017-09-24 16:03] VITALS: BP 149/77; PULSE 83
== END 2017-09-24 15:00 | disposition home or self-care (01) ==
LOC: JONCCHEMO 07:28 → J7W 11:00 → JONCCHEMO 15:00
PROVIDERS: ATTEND Internal Medicine Hematology & Oncology
DX: Z51.11 Encounter for antineoplastic chemotherapy (principal); C50.311 Malignant neoplasm of lower-inner quadrant of right female breast; C79.51 Secondary malignant neoplasm of bone; D70.1 Agranulocytosis secondary to cancer chemotherapy
CPT/HCPCS: 36415; 80053; 80076; 83735; 85025; 96361; 96367; 96375; 96413; J1100

== ENCOUNTER 2017-10-01 07:35 | Day surgery (SDC) | payer OTHER ==
[2017-10-01] MEDS ORDERED: SODIUM CHLORIDE 250 ML IV ONE ×2 (08:00→09:30)
[2017-10-01] MEDS ORDERED: DEXAMETHASONE INJECTION 10 MG, ONDANSETRON INJECTION 12 MG in SODIUM CHLORIDE 100 ML IVPB ONE (08:30)
[2017-10-01] MEDS ORDERED: GEMCITABINE HCL 1,482 MG in SODIUM CHLORIDE 250 ML IV ONE (09:00)
[2017-10-01 09:13] VITALS: TEMP 98
[2017-10-01 09:31] LABS: BASO % 1.2 % (0-2.0); EOS % 1.9 % (0-4.5); HEMATOCRIT 28.1 % (32.4-45.2); HEMOGLOBIN 9.6 GM/dL (10.7-15.3); LYMPH % 13.6 % (8-40); MCH 34.8 pg (25.7-33.7); MCHC 34.1 g/dl (32.0-36.0); MEAN CELL VOLUME 102.1 fl (80-96); MEAN PLT VOLUME 6.6 fl (7.5-11.1); MONO % 11.8 % (3.8-10.2); NEUT % 71.5 % (42.8-82.8); PLATELET COUNT 336 K/MM3 (134-434); RBC 2.75 M/mm3 (3.60-5.2); RDW 19.3 % (11.6-15.6); WHITE BLOOD COUNT 4.9 K/mm3 (4.0-10.0)
[2017-10-01 09:51] LABS: ALBUMIN 3.4 g/dl (3.4-5.0); ANION GAP 10 (8-16); BILIRUBIN,DIRECT < 0.2 mg/dL (0.0-0.2); BILIRUBIN,TOTAL 0.3 mg/dL (0.2-1.0); BLOOD UREA NITROGEN 19 mg/dL (7-18); CALCIUM 8.5 mg/dL (8.5-10.1); CHLORIDE 100 mmol/L (98-107); CO2 24 mmol/L (21-32); CREATININE 1.4 mg/dL (0.55-1.02); GLUCOSE,RANDOM 107 mg/dL (74-106); POTASSIUM 4.8 mmol/L (3.5-5.1); SGOT/AST 35 U/L (15-37); SGPT/ALT 23 U/L (12-78); SODIUM 134 mmol/L (136-145); TOT PROT 6.7 g/dl (6.4-8.2)
[2017-10-01 09:52] LABS: ALK PHOS 102 U/L (45-117)
[2017-10-01] MEDS ORDERED: PORTA CATH FLUSH 10 ML IVPUSH ONE (10:45)
[2017-10-01 16:38] VITALS: BP 132/85; PULSE 89
== END 2017-10-01 13:50 | disposition home or self-care (01) ==
LOC: JONCCHEMO 07:35 → J7W 10:13 → JONCCHEMO 13:50
PROVIDERS: ATTEND Internal Medicine Hematology & Oncology
DX: Z51.11 Encounter for antineoplastic chemotherapy (principal); C50.311 Malignant neoplasm of lower-inner quadrant of right female breast; C79.51 Secondary malignant neoplasm of bone; D70.1 Agranulocytosis secondary to cancer chemotherapy
CPT/HCPCS: 36415; 80053; 80076; 83735; 85025; 96361; 96367; 96375; 96413; J1100

== ENCOUNTER 2017-10-02 07:34 | Day surgery (SDC) | payer OTHER ==
[2017-10-02] MEDS ORDERED: PEGFILGRASTIM 6 MG/0.6 ML DISP.SYRIN SQ ONE (08:00)
[2017-10-02 13:58] VITALS: BP 140/86; PULSE 86; TEMP 98.5
== END 2017-10-02 13:35 | disposition home or self-care (01) ==
LOC: JONCCHEMO 07:34 → J7W 13:12 → JONCCHEMO 13:35
PROVIDERS: ATTEND Internal Medicine Hematology & Oncology
PROC: 3E013GC Introduction of Other Therapeutic Substance into Subcutaneous Tissue, Percutaneous Approach (ICD-10-PCS; principal; 2017-10-02)
DX: C50.311 Malignant neoplasm of lower-inner quadrant of right female breast (principal); C79.51 Secondary malignant neoplasm of bone; D70.1 Agranulocytosis secondary to cancer chemotherapy; Z76.89 Persons encountering health services in other specified circumstances
CPT/HCPCS: 96372; J2505

== ENCOUNTER 2017-10-24 07:38 | Day surgery (SDC) | payer OTHER ==
[2017-10-24] MEDS ORDERED: SODIUM CHLORIDE 250 ML IV ONE ×2 (09:00→11:00)
[2017-10-24] MEDS ORDERED: DEXAMETHASONE INJECTION 10 MG, ONDANSETRON INJECTION 12 MG in SODIUM CHLORIDE 100 ML IVPB ONE (10:00)
[2017-10-24] MEDS ORDERED: GEMCITABINE HCL 1,482 MG in SODIUM CHLORIDE 250 ML IV ONE (10:30)
[2017-10-24 12:02] LABS: BASO % 0.5 % (0-2.0); EOS % 2.2 % (0-4.5); HEMATOCRIT 27.7 % (32.4-45.2); HEMOGLOBIN 9.2 GM/dL (10.7-15.3); LYMPH % 24.3 % (8-40); MCH 35.3 pg (25.7-33.7); MCHC 33.4 g/dl (32.0-36.0); MEAN CELL VOLUME 105.6 fl (80-96); MEAN PLT VOLUME 6.7 fl (7.5-11.1); MONO % 14.9 % (3.8-10.2); NEUT % 58.1 % (42.8-82.8); PLATELET COUNT 318 K/MM3 (134-434); RBC 2.62 M/mm3 (3.60-5.2); RDW 17.5 % (11.6-15.6); WHITE BLOOD COUNT 4.2 K/mm3 (4.0-10.0)
[2017-10-24 12:36] LABS: ALBUMIN 3.4 g/dl (3.4-5.0); ANION GAP 10 (8-16); BILIRUBIN,DIRECT < 0.2 mg/dL (0.0-0.2); BILIRUBIN,TOTAL 0.4 mg/dL (0.2-1.0); BLOOD UREA NITROGEN 12 mg/dL (7-18); CALCIUM 8.9 mg/dL (8.5-10.1); CHLORIDE 101 mmol/L (98-107); CO2 24 mmol/L (21-32); CREATININE 1.3 mg/dL (0.55-1.02); GLUCOSE,RANDOM 90 mg/dL (74-106); SGOT/AST 40 U/L (15-37); SGPT/ALT 27 U/L (12-78); SODIUM 135 mmol/L (136-145); TOT PROT 6.7 g/dl (6.4-8.2)
[2017-10-24 12:37] LABS: ALK PHOS 108 U/L (45-117)
[2017-10-24 17:08] VITALS: TEMP 98
[2017-10-24] MEDS ORDERED: PORTA CATH FLUSH 10 ML IVPUSH ONE (17:13)
[2017-10-24 17:14] VITALS: BP 157/89; PULSE 86
== END 2017-10-24 15:20 | disposition home or self-care (01) ==
LOC: JONCCHEMO 07:38 → J7W 11:09 → JONCCHEMO 15:20
PROVIDERS: ATTEND Internal Medicine Hematology & Oncology
PROC: 3E04305 Introduction of Other Antineoplastic into Central Vein, Percutaneous Approach (ICD-10-PCS; principal; 2017-10-24)
PROC: 3E043GC Introduction of Other Therapeutic Substance into Central Vein, Percutaneous Approach (ICD-10-PCS; 2017-10-24)
PROC: 3E0437Z Introduction of Electrolytic and Water Balance Substance into Central Vein, Percutaneous Approach (ICD-10-PCS; 2017-10-24)
DX: Z51.11 Encounter for antineoplastic chemotherapy (principal); C50.311 Malignant neoplasm of lower-inner quadrant of right female breast; C79.51 Secondary malignant neoplasm of bone; Z17.0 Estrogen receptor positive status [ER+]; D70.1 Agranulocytosis secondary to cancer chemotherapy
CPT/HCPCS: 36415; 80048; 80076; 82378; 83735; 85025; 86300; 96361; 96367; 96375; J1100

== ENCOUNTER 2017-10-25 07:31 | Day surgery (SDC) | payer OTHER ==
[2017-10-25] MEDS ORDERED: PEGFILGRASTIM 6 MG/0.6 ML DISP.SYRIN SQ ONE (10:00)
[2017-10-25 11:24] VITALS: BP 156/89; PULSE 72; TEMP 98.2
== END 2017-10-25 11:27 | disposition home or self-care (01) ==
LOC: JONCCHEMO 07:31
PROVIDERS: ATTEND Internal Medicine Hematology & Oncology
PROC: 3E013GC Introduction of Other Therapeutic Substance into Subcutaneous Tissue, Percutaneous Approach (ICD-10-PCS; principal; 2017-10-25)
DX: C50.311 Malignant neoplasm of lower-inner quadrant of right female breast (principal); C79.51 Secondary malignant neoplasm of bone; D70.1 Agranulocytosis secondary to cancer chemotherapy
CPT/HCPCS: 96372; J2505

== ENCOUNTER 2017-11-05 07:38 | Day surgery (SDC) | payer OTHER ==
[2017-11-05] MEDS ORDERED: SODIUM CHLORIDE 250 ML IV ONE ×2 (09:00→11:00)
[2017-11-05] MEDS ORDERED: DEXAMETHASONE INJECTION 10 MG, ONDANSETRON INJECTION 12 MG in SODIUM CHLORIDE 100 ML IVPB ONE (10:00)
[2017-11-05 10:15] VITALS: PULSE 88
[2017-11-05] MEDS ORDERED: GEMCITABINE HCL 1,482 MG in SODIUM CHLORIDE 250 ML IV ONE (10:30)
[2017-11-05 10:34] LABS: HEMATOCRIT 28.1 % (32.4-45.2); HEMOGLOBIN 9.9 GM/dL (10.7-15.3); MCH 37.9 pg (25.7-33.7); MEAN CELL VOLUME 108.2 fl (80-96); MEAN PLT VOLUME 7.9 fl (7.5-11.1); PLATELET COUNT 221 K/MM3 (134-434); RDW 20.5 % (11.6-15.6)
[2017-11-05 10:55] LABS: ALBUMIN 3.5 g/dl (3.4-5.0); ANION GAP 10 (8-16); BILIRUBIN,DIRECT < 0.2 mg/dL (0.0-0.2); BILIRUBIN,TOTAL 0.6 mg/dL (0.2-1.0); BLOOD UREA NITROGEN 15 mg/dL (7-18); CALCIUM 8.1 mg/dL (8.5-10.1); CHLORIDE 101 mmol/L (98-107); CO2 22 mmol/L (21-32); CREATININE 1.6 mg/dL (0.55-1.02); GLUCOSE,RANDOM 86 mg/dL (74-106); POTASSIUM 5.2 mmol/L (3.5-5.1); SGOT/AST 43 U/L (15-37); SGPT/ALT 30 U/L (12-78); SODIUM 133 mmol/L (136-145); TOT PROT 6.7 g/dl (6.4-8.2)
[2017-11-05 10:56] LABS: ALK PHOS 115 U/L (45-117)
[2017-11-05 11:13] LABS: MACROCYTOSIS 1+; OVALOCYTE 1+; TEAR DROP CELLS 1+
[2017-11-05 18:20] VITALS: BP 154/90; TEMP 97.4
[2017-11-05] MEDS ORDERED: PORTA CATH FLUSH 10 ML IVPUSH ONE (18:20)
== END 2017-11-05 15:00 | disposition home or self-care (01) ==
LOC: JONCCHEMO 07:38 → J7W 11:25 → JONCCHEMO 15:00
PROVIDERS: ATTEND Internal Medicine Hematology & Oncology
DX: Z51.11 Encounter for antineoplastic chemotherapy (principal); C50.311 Malignant neoplasm of lower-inner quadrant of right female breast; C79.51 Secondary malignant neoplasm of bone; D70.1 Agranulocytosis secondary to cancer chemotherapy
CPT/HCPCS: 36415; 80053; 80076; 83735; 85025; 96361; 96367; 96375; 96413; J1100

== ENCOUNTER 2017-11-12 07:20 | Day surgery (SDC) | payer OTHER ==
[2017-11-12] MEDS ORDERED: SODIUM CHLORIDE 250 ML IV ONE ×2 (08:00→09:30)
[2017-11-12] MEDS ORDERED: DEXAMETHASONE INJECTION 10 MG, ONDANSETRON INJECTION 12 MG in SODIUM CHLORIDE 100 ML IVPB ONE (08:30)
[2017-11-12] MEDS ORDERED: GEMCITABINE HCL 1,482 MG in SODIUM CHLORIDE 250 ML IV ONE (09:00)
[2017-11-12 10:47] LABS: BASO % 0.9 % (0-2.0); EOS % 1.1 % (0-4.5); HEMATOCRIT 28.1 % (32.4-45.2); HEMOGLOBIN 9.8 GM/dL (10.7-15.3); LYMPH % 15.8 % (8-40); MCH 37.9 pg (25.7-33.7); MCHC 34.8 g/dl (32.0-36.0); MEAN CELL VOLUME 108.8 fl (80-96); MEAN PLT VOLUME 6.6 fl (7.5-11.1); MONO % 10.6 % (3.8-10.2); NEUT % 71.6 % (42.8-82.8); PLATELET COUNT 326 K/MM3 (134-434); RBC 2.58 M/mm3 (3.60-5.2); RDW 19.5 % (11.6-15.6); WHITE BLOOD COUNT 4.8 K/mm3 (4.0-10.0)
[2017-11-12 11:08] LABS: ALBUMIN 3.5 g/dl (3.4-5.0); ANION GAP 10 (8-16); BLOOD UREA NITROGEN 17 mg/dL (7-18); CALCIUM 8.7 mg/dL (8.5-10.1); CHLORIDE 102 mmol/L (98-107); CO2 23 mmol/L (21-32); CREATININE 1.3 mg/dL (0.55-1.02); GLUCOSE,RANDOM 94 mg/dL (74-106); SGOT/AST 42 U/L (15-37); SGPT/ALT 26 U/L (12-78); SODIUM 135 mmol/L (136-145)
[2017-11-12 11:11] LABS: ALK PHOS 94 U/L (45-117); BILIRUBIN,TOTAL 0.4 mg/dL (0.2-1.0); TOT PROT 6.7 g/dl (6.4-8.2)
[2017-11-12 12:15] LABS: BILIRUBIN,DIRECT < 0.2 mg/dL (0.0-0.2); MAGNESIUM 1.9 mg/dL (1.8-2.4)
[2017-11-12 18:37] VITALS: BP 149/85; PULSE 89; TEMP 98.9
== END 2017-11-12 16:00 | disposition home or self-care (01) ==
LOC: JONCCHEMO 07:20 → J7W 11:34 → JONCCHEMO 16:00
PROVIDERS: ATTEND Internal Medicine Hematology & Oncology
DX: Z51.11 Encounter for antineoplastic chemotherapy (principal); C50.311 Malignant neoplasm of lower-inner quadrant of right female breast; C79.51 Secondary malignant neoplasm of bone; D70.1 Agranulocytosis secondary to cancer chemotherapy
CPT/HCPCS: 36415; 80053; 80076; 83735; 85025; 96361; 96367; 96375; 96413; J1100; J2405

== ENCOUNTER 2017-11-13 07:28 | Day surgery (SDC) | payer OTHER ==
[2017-11-13] MEDS ORDERED: PEGFILGRASTIM 6 MG/0.6 ML DISP.SYRIN SQ ONE (08:00)
[2017-11-13 17:11] VITALS: BP 132/84; PULSE 92; TEMP 98.7
== END 2017-11-13 11:00 | disposition home or self-care (01) ==
LOC: JONCCHEMO 07:28 → J7W 10:25 → JONCCHEMO 11:00
PROVIDERS: ATTEND Internal Medicine Hematology & Oncology
PROC: 3E013GC Introduction of Other Therapeutic Substance into Subcutaneous Tissue, Percutaneous Approach (ICD-10-PCS; principal; 2017-11-13)
DX: C50.311 Malignant neoplasm of lower-inner quadrant of right female breast (principal); C79.51 Secondary malignant neoplasm of bone; D70.1 Agranulocytosis secondary to cancer chemotherapy; Z76.89 Persons encountering health services in other specified circumstances
CPT/HCPCS: 96372; J2505

== ENCOUNTER 2017-11-26 07:36 | Day surgery (SDC) | payer OTHER ==
[2017-11-26] MEDS ORDERED: SODIUM CHLORIDE 250 ML IV ONE ×3 (08:00→09:30)
[2017-11-26] MEDS ORDERED: DEXAMETHASONE INJECTION 10 MG, ONDANSETRON INJECTION 12 MG in SODIUM CHLORIDE 100 ML IVPB ONE (08:30)
[2017-11-26] MEDS ORDERED: GEMCITABINE HCL 1,482 MG in SODIUM CHLORIDE 250 ML IV ONE (09:00)
[2017-11-26 09:52] LABS: BASO % 0.8 % (0-2.0); EOS % 1.4 % (0-4.5); HEMOGLOBIN 9.5 GM/dL (10.7-15.3); LYMPH % 7.7 % (8-40); MCH 38.2 pg (25.7-33.7); MEAN CELL VOLUME 112.3 fl (80-96); MEAN PLT VOLUME 7.7 fl (7.5-11.1); MONO % 8.1 % (3.8-10.2); PLATELET COUNT 347 K/MM3 (134-434); RDW 20.9 % (11.6-15.6); WHITE BLOOD COUNT 9.7 K/mm3 (4.0-10.0)
[2017-11-26 10:34] LABS: ALBUMIN 3.4 g/dl (3.4-5.0); ALK PHOS 115 U/L (45-117); ANION GAP 8 (8-16); BILIRUBIN,TOTAL 0.4 mg/dL (0.2-1.0); BLOOD UREA NITROGEN 16 mg/dL (7-18); CALCIUM 8.5 mg/dL (8.5-10.1); CHLORIDE 103 mmol/L (98-107); CO2 23 mmol/L (21-32); CREATININE 1.4 mg/dL (0.55-1.02); GLUCOSE,RANDOM 81 mg/dL (74-106); POTASSIUM 4.7 mmol/L (3.5-5.1); SGOT/AST 37 U/L (15-37); SODIUM 134 mmol/L (136-145); TOT PROT 6.3 g/dl (6.4-8.2)
[2017-11-26 10:38] VITALS: TEMP 97.7
[2017-11-26] MEDS ORDERED: PORTA CATH FLUSH 10 ML IVPUSH ONE (10:38)
[2017-11-26 10:57] LABS: ALBUMIN 3.4 g/dl (3.4-5.0); MAGNESIUM 1.7 mg/dL (1.8-2.4)
[2017-11-26 10:58] LABS: SGPT/ALT 20 U/L (12-78)
[2017-11-26 11:02] LABS: ALK PHOS 117 U/L (45-117); BILIRUBIN,DIRECT < 0.2 mg/dL (0.0-0.2); BILIRUBIN,TOTAL 0.4 mg/dL (0.2-1.0); SGOT/AST 36 U/L (15-37); SGPT/ALT 20 U/L (12-78); TOT PROT 6.2 g/dl (6.4-8.2)
[2017-11-26 13:40] VITALS: BP 148/84; PULSE 76
== END 2017-11-26 14:00 | disposition home or self-care (01) ==
LOC: JONCCHEMO 07:36 → J7W 11:08 → JONCCHEMO 14:00
PROVIDERS: ATTEND Internal Medicine Hematology & Oncology
DX: Z51.11 Encounter for antineoplastic chemotherapy (principal); C50.311 Malignant neoplasm of lower-inner quadrant of right female breast; C79.51 Secondary malignant neoplasm of bone; D70.1 Agranulocytosis secondary to cancer chemotherapy
CPT/HCPCS: 36415; 80053; 80076; 83735; 85025; 96361; 96367; 96375; 96413; J1100; J2405

== ENCOUNTER 2017-12-03 07:15 | Day surgery (SDC) | payer OTHER ==
[2017-12-03] MEDS ORDERED: SODIUM CHLORIDE 250 ML IV ONE (08:00)
[2017-12-03] MEDS ORDERED: DEXAMETHASONE INJECTION 10 MG, ONDANSETRON INJECTION 12 MG in SODIUM CHLORIDE 100 ML IVPB ONE (08:30)
[2017-12-03] MEDS ORDERED: GEMCITABINE HCL 1,482 MG in SODIUM CHLORIDE 250 ML IV ONE (09:00)
[2017-12-03 10:19] VITALS: TEMP 97.7
[2017-12-03 10:42] LABS: BASO % 1.1 % (0-2.0); EOS % 0.4 % (0-4.5); HEMATOCRIT 25.7 % (32.4-45.2); HEMOGLOBIN 8.9 GM/dL (10.7-15.3); LYMPH % 12.3 % (8-40); MCH 38.2 pg (25.7-33.7); MCHC 34.5 g/dl (32.0-36.0); MEAN CELL VOLUME 110.9 fl (80-96); MEAN PLT VOLUME 6.6 fl (7.5-11.1); MONO % 13.7 % (3.8-10.2); NEUT % 72.5 % (42.8-82.8); PLATELET COUNT 297 K/MM3 (134-434); RBC 2.32 M/mm3 (3.60-5.2); RDW 19.6 % (11.6-15.6); WHITE BLOOD COUNT 4.6 K/mm3 (4.0-10.0)
[2017-12-03 11:10] LABS: ALBUMIN 3.2 g/dl (3.4-5.0); ANION GAP 7 (8-16); BILIRUBIN,DIRECT < 0.2 mg/dL (0.0-0.2); BLOOD UREA NITROGEN 19 mg/dL (7-18); CALCIUM 8.7 mg/dL (8.5-10.1); CHLORIDE 103 mmol/L (98-107); CO2 28 mmol/L (21-32); GLUCOSE,RANDOM 123 mg/dL (74-106); MAGNESIUM 2.1 mg/dL (1.8-2.4); POTASSIUM 4.1 mmol/L (3.5-5.1); SODIUM 138 mmol/L (136-145)
[2017-12-03 11:13] LABS: ALK PHOS 90 U/L (45-117); BILIRUBIN,TOTAL 0.2 mg/dL (0.2-1.0); CREATININE 1.5 mg/dL (0.55-1.02); SGOT/AST 34 U/L (15-37); SGPT/ALT 24 U/L (12-78); TOT PROT 6.3 g/dl (6.4-8.2)
[2017-12-03] MEDS: SODIUM CHLORIDE 250 ML IV ONE ×2 (11:41→14:04)
[2017-12-03] MEDS ORDERED: amLODIPine BESYLATE 5 MG TABLET (FP) PO ONE (11:45)
[2017-12-03] MEDS ORDERED: RANITIDINE HCL 150 MG TABLET (FP) PO ONE (11:45)
[2017-12-03] MEDS ORDERED: IBUPROFEN 600 MG TABLET (FP) PO ONE (11:45)
[2017-12-03] MEDS ORDERED: LIDOCAINE PATCH REMOVAL MC ONE (14:15)
[2017-12-03] MEDS ORDERED: LIDOCAINE 5% TOPICAL PATCH TP ONE (14:15)
[2017-12-03] MEDS ORDERED: PORTA CATH FLUSH 10 ML IVPUSH ONE (15:45)
[2017-12-03 15:47] VITALS: BP 162/88; PULSE 93
== END 2017-12-03 19:52 | disposition home or self-care (01) ==
LOC: JONCCHEMO 07:15 → J7W 11:29 → JONCCHEMO 19:52
PROVIDERS: ATTEND Internal Medicine Hematology & Oncology
DX: Z51.11 Encounter for antineoplastic chemotherapy (principal); C50.311 Malignant neoplasm of lower-inner quadrant of right female breast; C79.51 Secondary malignant neoplasm of bone; D70.1 Agranulocytosis secondary to cancer chemotherapy
CPT/HCPCS: 36415; 80053; 80076; 83735; 85025; 96361; 96367; 96375; 96413; J1100; J2405

== ENCOUNTER 2017-12-04 07:27 | Day surgery (SDC) | payer OTHER ==
[2017-12-04] MEDS ORDERED: PEGFILGRASTIM 6 MG/0.6 ML DISP.SYRIN SQ ONE (08:00)
[2017-12-04 13:11] VITALS: BP 147/93; PULSE 86
[2017-12-04 13:12] VITALS: TEMP 98.4
== END 2017-12-04 10:15 | disposition home or self-care (01) ==
LOC: JONCCHEMO 07:27 → J7W 09:47 → JONCCHEMO 10:15
PROVIDERS: ATTEND Internal Medicine Hematology & Oncology
PROC: 3E013GC Introduction of Other Therapeutic Substance into Subcutaneous Tissue, Percutaneous Approach (ICD-10-PCS; principal; 2017-12-04)
DX: C50.311 Malignant neoplasm of lower-inner quadrant of right female breast (principal); C79.51 Secondary malignant neoplasm of bone; D70.1 Agranulocytosis secondary to cancer chemotherapy; Z76.89 Persons encountering health services in other specified circumstances
CPT/HCPCS: 96372; J2505

== ENCOUNTER 2017-12-07 13:43 | Inpatient (IN) | payer OTHER ==
--- NOTE | 2017-12-07 15:16 | PDOC ---
Attending Attestation - Resident Resident Name: CorinaTroy - ED Attending Attestation I have performed the following: I have examined & evaluated the patient, The case was reviewed & discussed with the resident, I agree w/resident's findings & plan, Exceptions are as noted - HPI HPI: 71 yo F history R breast CA s/p resection with spinal mets and intestinal mets presents with severe low back pain. She states that she fell asleep at an unusual angle and initially thought it was a muscle strain, however, it was not improving throughout the day. She also notes that she has had L leg swelling. Denies cp, SOB, weakness, numbness. - Physicial Exam PE: GENERAL: Awake, alert, and fully oriented, in no acute distress HEAD: No signs of trauma EYES: PERRLA, EOMI, sclera anicteric, conjunctiva clear ENT: Auricles normal inspection, hearing grossly normal, nares patent, oropharynx clear without exudates. Moist mucosa NECK: Normal ROM, supple, no lymphadenopathy, JVD, or masses LUNGS: Breath sounds equal, clear to auscultation bilaterally. No wheezes, and no crackles HEART: Regular rate and rhythm, normal S1 and S2, no murmurs, rubs or gallops ABDOMEN: Soft, nontender, normoactive bowel sounds. No guarding, no rebound. No masses EXTREMITIES: Normal range of motion, 1+ pitting edema to LLE. No clubbing or cyanosis. No cords, erythema, or tenderness NEUROLOGICAL: Cranial nerves II through XII grossly intact. Normal speech, normal gait SKIN: Warm, Dry, normal turgor, no rashes or lesions noted. SPINE: No midline tenderness. - Medical Decision Making Will obtain lumbar spinal films to r/o pathologic fracture, as well as urine to r/o UTI (she has history of ureteral stents). If UA positive, will admit. If all studies negative, will consider Lumbar CT to r/o fx.
--- NOTE | 2017-12-07 15:32 | PDOC ---
History of Present Illness - General Chief Complaint: Pain Stated Complaint: LOWER BACK PAIN Time Seen by Provider: 12/07/17 15:14 History Source: Patient Exam Limitations: No Limitations - History of Present Illness Initial Comments: 12/07/17 15:29 71yo F with significant history of R breast Ca (s/p resection) with mets to lumbar spine and intestines currently on chemotherapy (last dose Sunday) who presents with difficulty walking and increased pain in R buttock/lower lumbar area. She endorses some swelling in her L leg compared to her R and felt her limb warm at times with her swelling. She states she normally wouldn't have come in, however she lives alone and was concerned if she had a blood clot in her legs. Pt denies chills, SOB, CP/discomfort, palpitations, abdominal pain, leg pain, changing sensation in her legs, difficulties urinating including dysuria, polyuria, and incontinence. Pt denies any recent procedures on her spine. Past History - Past Medical History Allergies/Adverse Reactions: Allergies Allergy/AdvReac Type Severity Reaction Status Date / Time No Known Drug Allergies Allergy Verified 12/07/17 13:55 Home Medications: Ambulatory Orders Calcium Citrate/Magnesium/D3 [Calcium Citrate Chewable Wafer] 1 each PO DAILY Cholecalciferol (Vitamin D3) [Vitamin D3] 3,000 unit PO DAILY 05/08/17 Magnesium Citrate 400 mg PO DAILY 05/08/17 Vitamin B Complex 1 each PO DAILY 05/08/17 Anemia: Yes Asthma: No Cancer: Yes (right breast, lymph nodes, mets to large intestines) Cardiac Disorders: No CVA: No COPD: No CHF: No Dementia: No Diabetes: No GI Disorders: Yes (OSTOMY) Disorders: Yes (LYMPH NODES COMPRESSED TUBES) HTN: No Hypercholesterolemia: No Liver Disease: No Seizures: No Thyroid Disease: No - Surgical History Abdominal Surgery: Yes (INTESTINAL RESECTION 2014 colostomy) Appendectomy: No Cardiac Surgery: No Cholecystectomy: No Lung Surgery: No Neurologic Surgery: No Orthopedic Surgery: No - Suicide/Smoking/Psychosocial Hx Smoking Status: No Smoking History: Never smoked Have you smoked in the past 12 months: No Number of Cigarettes Smoked Daily: 0 Information on smoking cessation initiated: No Hx Alcohol Use: No Drug/Substance Use Hx: No Substance Use Type: None Hx Substance Use Treatment: No *Physical Exam - Vital Signs Last Vital Signs Temp Pulse Resp BP Pulse Ox 98.9 F 74 17 155/90 100 12/07/17 13:52 12/07/17 13:52 12/07/17 13:52 12/07/17 13:52 12/07/17 13:52 - Physical Exam Comments: 12/07/17 15:40 GEN: NAD, awake, alert and oriented HEENT: EOMI, LEXIE, No JVD, moist mucosa LUNG: CTA b/l no wheezes, rales, rhonchi CARDIAC: RRR, no murmurs auscultated ABDOMEN: Soft, NT/ND, normoactive BS, no rebound or guarding, colostomy bag noted on R side BACK: No pain with palpation of spinous processes, no overlying skin changes , no skeletal instability, no CVA tenderness NEURO: Nonfocal. Sensation intact in distal extremities, motor strength 5/5 in L leg, 3+/5 in R hip flexion and 5/5 leg flexion/extension and plantar/ dorsal flexion, patellar reflexes 2/4 EXT: Trace non-pitting edema in LLE,, 2+ DP pulses b/l, warm, no erythema ED Treatment Course - LABORATORY CBC & Chemistry Diagram: 12/09/17 07:00 12/09/17 07:00 Medical Decision Making - Medical Decision Making 12/07/17 15:44 71yo F with some difficulties with walking --Pt can stand, however wobbly gait --DDx: R/o lumbar spine degeneration/pathological fx, r/o posterolateral disc herniation, r/o DVT; --Lumbar and sacral XR --Duplex 2-legs orderd --CBC, CMP for Calcium 12/07/17 18:47 Duplex b/l negative Lumbar XR negative for any gross pathological fx --Pt refusing CT scan due to feeling okay CBC revealed 24,000 despite chemotherapy on Sunday --Contacting Dr. Edward for guidance UA ordered; pending collection 12/07/17 19:[address] Pratt taking call for Dr. Edward re: elevation in WBC --Being that patient did not receive any WBC booster would opt to admit for IV antibiotics and further workup especially in setting of 96% neutrophils *DC/Admit/Observation/Transfer Diagnosis at time of Disposition: Leukocytosis Qualifiers: Leukocytosis type: unspecified Qualified Code(s): D72.829 - Elevated white blood cell count, unspecified - Discharge Dispostion Condition at time of disposition: Stable - Referrals - Patient Instructions - Post Discharge Activity
[2017-12-07 17:13] LABS: HEMATOCRIT 24.4 % (32.4-45.2); HEMOGLOBIN 8.2 GM/dL (10.7-15.3); MCH 37.2 pg (25.7-33.7); MCHC 33.5 g/dl (32.0-36.0); MEAN CELL VOLUME 111.1 fl (80-96); MEAN PLT VOLUME 7.3 fl (7.5-11.1); PLATELET COUNT 184 K/MM3 (134-434); RDW 19.8 % (11.6-15.6); WHITE BLOOD COUNT 24.2 K/mm3 (4.0-10.0)
[2017-12-07 17:28] LABS: INR 1.04 (0.82-1.09); PROTHROMBIN TIME (PATIENT) 11.8 SEC (9.98-11.88)
[2017-12-07 17:30] LABS: ACTIVATED PTT 26.7 SECONDS (26.9-34.4)
[2017-12-07 17:40] LABS: ALK PHOS 105 U/L (45-117); ANION GAP 6 (8-16); BILIRUBIN,TOTAL 0.6 mg/dL (0.2-1.0); BLOOD UREA NITROGEN 22 mg/dL (7-18); CALCIUM 8.6 mg/dL (8.5-10.1); CHLORIDE 105 mmol/L (98-107); CO2 28 mmol/L (21-32); CREATININE 1.3 mg/dL (0.55-1.02); GLUCOSE,RANDOM 84 mg/dL (74-106); POTASSIUM 4.1 mmol/L (3.5-5.1); SGOT/AST 40 U/L (15-37); SGPT/ALT 29 U/L (12-78); SODIUM 139 mmol/L (136-145); TOT PROT 5.9 g/dl (6.4-8.2)
[2017-12-07 18:22] LABS: PLATELET ESTIMATE ADEQUATE
[2017-12-07] MEDS ORDERED: PIPERACIL/TAZOB 3.375 GM 3.375 GM/50 ML PREMIX IVPB ONE (19:12)
[2017-12-07 19:28] LABS: URINE APPEARANCE SLCLOUDY; URINE BILIRUBIN NEGATIVE (<2.0 mg/dL); URINE COLOR YELLOW; URINE GLUCOSE (UA) NEGATIVE (NEGATIVE); URINE KETONE NEGATIVE (NEGATIVE); URINE NITRITE NEGATIVE (NEGATIVE); URINE UROBILINOGEN NEGATIVE mg/dL (0.2-1.0)
--- NOTE | 2017-12-07 19:35 | PDOC ---
*Physical Exam - Vital Signs Last Vital Signs Temp Pulse Resp BP Pulse Ox 98.9 F 74 17 155/90 100 12/07/17 13:52 12/07/17 13:52 12/07/17 13:52 12/07/17 13:52 12/07/17 13:52 ED Treatment Course - LABORATORY CBC & Chemistry Diagram: 12/07/17 16:59 12/07/17 16:59 - ADDITIONAL ORDERS Additional order review: Laboratory Results 12/07/17 12/07/17 16:59 16:59 PT with INR 11.80 INR 1.04 PTT (Actin FS) 26.7 L Sodium 139 Potassium 4.1 Chloride 105 Carbon Dioxide 28 Anion Gap 6 L BUN 22 H Creatinine 1.3 H Creat Clearance w eGFR 40.38 Random Glucose 84 Calcium 8.6 Total Bilirubin 0.6 D AST 40 H ALT 29 Alkaline Phosphatase 105 Total Protein 5.9 L Albumin 3.0 L 12/07/17 16:59 RBC 2.20 L MCV 111.1 H MCHC 33.5 RDW 19.8 H MPV 7.3 L D Medical Decision Making - Medical Decision Making 12/07/17 19:32 Sign-out received from outgoing Emergency Physician Dr. Turner Pt interviewed and examined Ancillary studies reviewed Case discussed in detail with oncoming Emergency Physician including history, physical exam and ancillary studies. CBC, BMP 12/07/17 16:59 12/07/17 16:59 CMP Sodium 139 mmol/L (136-145) 12/07/17 16:59 Potassium 4.1 mmol/L (3.5-5.1) 12/07/17 16:59 Chloride 105 mmol/L (98-107) 12/07/17 16:59 Carbon Dioxide 28 mmol/L (21-32) 12/07/17 16:59 Anion Gap 6 (8-16) L 12/07/17 16:59 BUN 22 mg/dL (7-18) H 12/07/17 16:59 Creatinine 1.3 mg/dL (0.55-1.02) H 12/07/17 16:59 Creat Clearance w eGFR 40.38 (>60) 12/07/17 16:59 Random Glucose 84 mg/dL (74-106) 12/07/17 16:59 Calcium 8.6 mg/dL (8.5-10.1) 12/07/17 16:59 Total Bilirubin 0.6 mg/dL (0.2-1.0) D 12/07/17 16:59 AST 40 U/L (15-37) H 18 16:59 ALT 29 U/L (12-78) 18 16:59 Alkaline Phosphatase 105 U/L (45-117) 12/07/17 16:59 Total Protein 5.9 g/dl (6.4-8.2) L 12/07/17 16:59 Albumin 3.0 g/dl (3.4-5.0) L 12/07/17 16:59 Radiographs demonstrates no obvious findings. At this time, patient declines any further back imaging. States that her back pain is improved. No bony tenderness on my evaluation. However, noted to have WBC 24.2 Could this be a UTI? UA/UC ordered. Given the elevated WBC, decision made to order 2 sets of blood cultures, lactic acid, and cover empirically with zosyn. Case discussed with Dr. Godinez (Dr. Edward's partner) Case dicsussed with [facility] who accepts patient to med/surg admission. Case discussed in detail with admitting physician including history, physical exam and ancillary studies. Admitting physician has assumed care for the patient, will follow all pending diagnostics and will complete the evaluation and treatment. *DC/Admit/Observation/Transfer Diagnosis at time of Disposition: Leukocytosis Qualifiers: Leukocytosis type: unspecified Qualified Code(s): D72.829 - Elevated white blood cell count, unspecified - Discharge Dispostion Condition at time of disposition: Stable Admit: Yes - Referrals Referrals: Andrés Richards MD [Primary Care Provider] - - Patient Instructions - Post Discharge Activity
[2017-12-07 19:39] LABS: URINE LEUK ESTERASE 1+ (NEGATIVE); URINE PROTEIN 2+ (NEGATIVE)
[2017-12-07] MEDS ORDERED: PIPERACILLIN/TAZOB 3.375 GM 3.375 GM/50 ML BAG IVPB ONE (19:40)
[2017-12-07 19:46] LABS: URINE MUCUS RARE
[2017-12-07] MEDS ORDERED: SODIUM CHLORIDE 1,000 ML IV SCH (20:45)
--- NOTE | 2017-12-07 22:22 | HP ---
CHIEF COMPLAINT: hip pain, body stiffness, difficulty ambulating PCP: Dr. Edward HISTORY OF PRESENT ILLNESS: 71 yr old woman with metastatic breast cancer(dx 2008) s/p mastectomy/RTX/ currently undergoing chemotherapy with Gemzar(last dose on sunday 12/03), hx of bowel obstruction and ischemic colon s/p resection and ileostomy placement presented to ED with 3 days of worsening right hip and difficulty ambulating. Sunday was her 8th dose of Gemzar. She received her usual dose of neulasta on Sunday, after she does experience some stiffness which lasts one day. But this week it was worse on Sunday and progressed on , she was unable to ambulate to the bathroom and required her rolling walker for assistance. Tylenol and motrin did not provide relief. Denies falls, chest pain, headache, fever, nausea, vomiting, abdominal pain, shortness of breath, cough, dysuria, change in bowel/urinary frequency, rash, joint swelling, being out doors. 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 Smoking: denies Alcohol:denies Drugs: denies Family History: [place] Allergies No Known Drug Allergies Allergy (Verified 12/07/17 13:55) HOME MEDICATIONS: Home Medications Medication Instructions Recorded Calcium Citrate/Magnesium/D3 1 each PO DAILY 05/08/17 [Calcium Citrate Chewable Wafer] Cholecalciferol (Vitamin D3) 3,000 unit PO DAILY 05/08/17 [Vitamin D3] Magnesium Citrate 400 mg PO DAILY 05/08/17 Vitamin B Complex 1 each PO DAILY 05/08/17 REVIEW OF SYSTEMS CONSTITUTIONAL: Absent: fever, chills, diaphoresis, generalized weakness, malaise, loss of appetite, weight change HEENT: Absent: rhinorrhea, nasal congestion, throat pain, throat swelling, difficulty swallowing, mouth swelling, ear pain, eye pain, visual changes CARDIOVASCULAR: Absent: chest pain, syncope, palpitations, irregular heart rate, lightheadedness , peripheral edema RESPIRATORY: Absent: cough, shortness of breath, dyspnea with exertion, orthopnea, wheezing, stridor, hemoptysis GASTROINTESTINAL: Absent: abdominal pain, abdominal distension, nausea, vomiting, diarrhea, constipation, melena, hematochezia GENITOURINARY: Absent: dysuria, frequency, urgency, hesitancy, hematuria, flank pain, genital pain MUSCULOSKELETAL: Present: hip pain, body stiffness Absent: myalgia, arthralgia, joint swelling, back pain, neck pain SKIN: Absent: rash, itching, pallor HEMATOLOGIC/IMMUNOLOGIC: Absent: easy bleeding, easy bruising, lymphadenopathy, frequent infections ENDOCRINE: Absent: unexplained weight gain, unexplained weight loss, heat intolerance, cold intolerance NEUROLOGIC: Absent: headache, focal weakness or paresthesias, dizziness, unsteady gait, seizure, mental status changes, bladder or bowel incontinence PSYCHIATRIC: Absent: anxiety, depression, suicidal or homicidal ideation, hallucinations. PHYSICAL EXAMINATION Vital Signs - 24 hr 12/07/17 13:52 Temperature 98.9 F Pulse Rate 74 Respiratory 17 Rate Blood Pressure 155/90 O2 Sat by Pulse 100 Oximetry (%) GENERAL: Awake, alert, and fully oriented, in no acute distress. HEAD: Normal with no signs of trauma. EYES: Pupils equal, round and reactive to light, extraocular movements intact, sclera anicteric, conjunctiva clear. No lid lag. EARS, NOSE, THROAT: oropharynx clear without exudates. Moist mucous membranes. no oral lesions, no thrush NECK: Normal range of motion, supple without lymphadenopathy, JVD, or masses. no bruits. CHEST: s/p rt mastectomy, well-healed scar LUNGS: Breath sounds equal, clear to auscultation bilaterally. No wheezes, and no crackles. No accessory muscle use. HEART: Regular rate and rhythm, normal S1 and S2 with soft holosystolic murmur ABDOMEN: Soft, nontender, not distended, normoactive bowel sounds, no guarding, no rebound, well-healed umbilical scra, right sided ileostomy in place with fecal output. MUSCULOSKELETAL: Normal range of motion at all joints. No bony deformities or tenderness. No CVA tenderness. UPPER EXTREMITIES: 2+ radial pulses, warm, well-perfused. No cyanosis. No clubbing. No peripheral edema. LOWER EXTREMITIES: 2+ dp pulses, warm, well-perfused. No calf tenderness. No peripheral edema. +b/l femoral pulses, no palpable femoral lymph nodes, left lateral thigh with 2x3cm petechia(nonblanching, nontender) NEUROLOGICAL: Cranial nerves II-XII intact. Normal speech, facial symmetry. Normal gait using rolling walker, weight bearing without difficulty PSYCHIATRIC: Cooperative. Good eye contact. Appropriate mood and affect. SKIN: Warm, dry, normal turgor, no rashes or lesions noted, normal capillary refill. Laboratory Results - last 24 hr 12/07/17 12/07/17 12/07/17 16:59 16:59 16:59 WBC 24.2 H D RBC 2.20 L Hgb 8.2 L Hct 24.4 L MCV 111.1 H MCH 37.2 H MCHC 33.5 RDW 19.8 H Plt Count 184 D MPV 7.3 L D Neutrophils % (Manual) 96.0 H* Band Neutrophils % 1.0 Lymphocytes % (Manual) 3.0 L D Monocytes % (Manual) 0 L D Eosinophils % (Manual) 0.0 Basophils % (Manual) 0.0 Platelet Estimate Adequate PT with INR 11.80 INR 1.04 PTT (Actin FS) 26.7 L Sodium 139 Potassium 4.1 Chloride 105 Carbon Dioxide 28 Anion Gap 6 L BUN 22 H Creatinine 1.3 H Creat Clearance w eGFR 40.38 Random Glucose 84 Calcium 8.6 Total Bilirubin 0.6 D AST 40 H ALT 29 Alkaline Phosphatase 105 Total Protein 5.9 L Albumin 3.0 L Urine Color Urine Appearance Urine pH Ur Specific [place] Urine Protein Urine Glucose (UA) Urine Ketones Urine Blood Urine Nitrite Urine Bilirubin Urine Urobilinogen Ur Leukocyte Esterase Urine WBC (Auto) Urine RBC (Auto) Urine Mucus 12/07/17 18:44 WBC RBC Hgb Hct MCV MCH MCHC RDW Plt Count MPV Neutrophils % (Manual) Band Neutrophils % Lymphocytes % (Manual) Monocytes % (Manual) Eosinophils % (Manual) Basophils % (Manual) Platelet Estimate PT with INR INR PTT (Actin FS) Sodium Potassium Chloride Carbon Dioxide Anion Gap BUN Creatinine Creat Clearance w eGFR Random Glucose Calcium Total Bilirubin AST ALT Alkaline Phosphatase Total Protein Albumin Urine Color Yellow Urine Appearance Slcloudy Urine pH 8.0 Ur Specific [place] 1.012 Urine Protein 2+ H Urine Glucose (UA) Negative Urine Ketones Negative Urine Blood 2+ H Urine Nitrite Negative Urine Bilirubin Negative Urine Urobilinogen Negative Ur Leukocyte Esterase 1+ H D Urine WBC (Auto) 10 Urine RBC (Auto) 21 Urine Mucus Rare ASSESSMENT/PLAN: 71 yr old woman with metastatic breast cancer receiving chemotherapy presented with body stiffness, found to have neutrophilia. #Elevated CBC in immunocompromised patient after receiving chemotherapy on Sunday, unclear etiology as patient is afebrile, no lactic acidosis, without GI/ /pulm complaints - continue IV Zosyn 3.375gm q8 for broad spectrum coverage until blood and urine cx are finalized - consult Dr. Joiner -- possibly UTI as 1+leuk and 10wbc's - repeat CBC pending to confirm the rapid increase since sunday when it was 4.6 - gentle hydration with 42cc/hr NS for 24hrs # Hip pain - now resolving, weight bearing comfortable with rolling walker, declined pain medication - vascular study negative for DVT, lumbar xray without acute pathology(pt has a hx of low mineral density in femurs) - r/o electrolyte abnormalities, check Mg and phos - PT evaluation #Chronic anemia, H/H at baseline with elevated MCV likely secondary to malignancy - continue vitamin B12 #Elevated Cr, at baseline (1.4-1.5) #continue home vitamin supplements: vit D3, MVI, Ca+D3 #Diet: patient follows a renal diet because she has a hx of hyperphosphotemia #DVT prophylaxis: heparin BID Visit type - Emergency Visit Emergency Visit: Yes ED Registration Date: 12/07/17 Care time: The patient presented to the Emergency Department on the above date and was hospitalized for further evaluation of their emergent condition. - New Patient This patient is new to me today: Yes Date on this admission: 12/11/17 - Critical Care Critical Care patient: No Hospitalist Screening - Colonoscopy Questionnaire Colonoscopy Questionnaire: Colonoscopy Questionnaire - Patient: 50 - 75 years old and never had a screening colonoscopy: Unknown History of colon or rectal polyps, or CA: Unknown History of IBD, Crohn's disease or UC: Unknown History of abdominal radiation therapy as a child: Unknown - Relative: 1 with colon or rectal CA, or polyps at age 60 or younger: Unknown Colon or rectal CA diagnosed at age 45 or younger: Unknown Multiple relatives with colon or rectal CA: Unknown - Outcome: Screening Result: Negative Screen
[2017-12-07] MEDS: HEPARIN NA (PORCINE) 5,000 UNITS/ML 1ML VIAL SQ SCH (22:30)
[2017-12-07 22:34] LABS: BASO % 0.2 % (0-2.0); EOS % 0.8 % (0-4.5); HEMATOCRIT 22.9 % (32.4-45.2); HEMOGLOBIN 7.8 GM/dL (10.7-15.3); LYMPH % 3.7 % (8-40); MCH 37.8 pg (25.7-33.7); MCHC 33.9 g/dl (32.0-36.0); MEAN CELL VOLUME 111.5 fl (80-96); MEAN PLT VOLUME 7.5 fl (7.5-11.1); NEUT % 94.3 % (42.8-82.8); PLATELET COUNT 171 K/MM3 (134-434); RBC 2.06 M/mm3 (3.60-5.2); RDW 19.7 % (11.6-15.6); WHITE BLOOD COUNT 21.8 K/mm3 (4.0-10.0)
[2017-12-07 23:15] LABS: PHOSPHOROUS 3.1 mg/dL (2.5-4.9)
[2017-12-07] MEDS ORDERED: HEPARIN NA (PORCINE) 5,000 UNITS/ML 1ML VIAL ONE (23:31)
[2017-12-08 00:42] VITALS: BMI 32.1
[2017-12-08] MEDS ORDERED: DEXTROSE 5%-WATER - 50 ML IVPB ONE ×2 (02:55→17:12)
[2017-12-08] MEDS ORDERED: PIPERACILLIN/TAZOBACTAM 3.375 GM VIAL IVPB ONE ×2 (02:55→17:12)
[2017-12-08] MEDS ORDERED: PROMETHAZINE HCL 25 MG/1 ML VIAL IVPB ONE (03:30)
[2017-12-08] MEDS ORDERED: PIPERACILLIN/TAZOB 3.375 GM 3.375 GM in DEXTROSE 5%-WATER - 50 ML IVPB ONE (04:00)
[2017-12-08] MEDS ORDERED: PIPERACIL/TAZOB 3.375 GM 3.375 GM/50 ML PREMIX IVPB ONE (04:00)
[2017-12-08 08:21] LABS: BASO % 0.3 % (0-2.0); EOS % 1.1 % (0-4.5); HEMATOCRIT 24.1 % (32.4-45.2); HEMOGLOBIN 8.2 GM/dL (10.7-15.3); LYMPH % 4.1 % (8-40); MCHC 34.1 g/dl (32.0-36.0); MEAN CELL VOLUME 111.4 fl (80-96); MEAN PLT VOLUME 6.8 fl (7.5-11.1); MONO % 1.1 % (3.8-10.2); NEUT % 93.4 % (42.8-82.8); PLATELET COUNT 151 K/MM3 (134-434); RBC 2.17 M/mm3 (3.60-5.2); RDW 20.1 % (11.6-15.6); WHITE BLOOD COUNT 18.7 K/mm3 (4.0-10.0)
[2017-12-08 08:36] LABS: ANION GAP 4 (8-16); BLOOD UREA NITROGEN 20 mg/dL (7-18); CALCIUM 8.7 mg/dL (8.5-10.1); CHLORIDE 105 mmol/L (98-107); CO2 29 mmol/L (21-32); CREATININE 1.4 mg/dL (0.55-1.02); GLUCOSE,RANDOM 88 mg/dL (74-106); PHOSPHOROUS 3.3 mg/dL (2.5-4.9); SODIUM 138 mmol/L (136-145)
[2017-12-08] MEDS ORDERED: PT OWN MED DRAWER 7, Y5N ONE (11:02)
[2017-12-08] MEDS: CALCIUM 500MG/VIT-D 200 UNITS COMBO TABLET (FP) PO SCH (11:07)
[2017-12-08] MEDS: VITAMIN B COMPLEX W/C COMBO TABLET (FP) PO SCH (11:07)
[2017-12-08] MEDS: MAGNESIUM OXIDE 400 MG TABLET (FP) PO SCH (11:07)
[2017-12-08] MEDS: HEPARIN NA (PORCINE) 5,000 UNITS/ML 1ML VIAL SQ SCH ×2 (11:08→21:44)
--- NOTE | 2017-12-08 16:44 | PN ---
Progress Note (short form) - Note Progress Note: ID consult imp/reccd 71 year old female with metastatic breast cancer admitted with worsening right leg pain and numbness she describes buttock pain and swelling of her leg she had numbness of the lower leg that has resolved also swelling that has resolved she needed a walker to go to chemo on Sunday had neulasta on Sunday no falls no trauma lives alone no fevers or chills no cough no dysuria I suspect leukocytosis secondary to neulasta but +UA f/u blood cultures positive UA, start rocephin until cultures are back buttock pain,/leg heaviiness duplex negative suggest xray femur/hip r/o pathologic fracture MRI of LS spine d/w oncology Problem List - Problems (1) Leukocytosis Code(s): D72.829 - ELEVATED WHITE BLOOD CELL COUNT, UNSPECIFIED Qualifiers: Leukocytosis type: unspecified Qualified Code(s): D72.829 - Elevated white blood cell count, unspecified (2) UTI (urinary tract infection) Code(s): N39.0 - URINARY TRACT INFECTION, SITE NOT SPECIFIED (3) 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
[2017-12-08] MEDS ORDERED: PIPERACIL/TAZOB 3.375 GM 3.375 GM/50 ML PREMIX IVPB SCH (17:00)
[2017-12-08] MEDS: CHOLECALCIFEROL (VITAMIN D3) 1,000 UNIT TABLET (FP) PO SCH (17:06)
--- NOTE | 2017-12-08 17:34 | CONS ---
DATE OF CONSULTATION: REQUESTING PHYSICIAN: Hospitalist service. HISTORY: This is a 71-year-old woman with a history of metastatic breast cancer. She is status post mastectomy. She then subsequently had bowel obstruction requiring ileostomy and most recently has had lumbosacral metastases. She is on chemotherapy with Dr. Edward, and she presents to the emergency room with worsening right buttock pain. She reports she had chemotherapy on Sunday. She reports before that chemotherapy that she was feeling unsteady enough that she used her walker, which she normally does not use. She returned on Sunday for Neulasta. She notes swelling of the leg, and she had right buttock pain. She describes it as a sciatic pain but notes that it does not radiate down her leg. As well, she was having numbness below her knee on the same leg, which has resolved. She is on Gemzar at this time for chemotherapy. She denies any fevers or chills. She denies nausea, vomiting, abdominal pain, chest pain, cough, dysuria. She has not had any swelling of her joints, and none of them have been red. She has been taking Tylenol and Motrin as an outpatient. There is no history of any falls or trauma. Her white count in the emergency room was noted to be 24,000. She had an x-ray of her lumbar spine, which is notable for bilateral nephroureteral stents. She had a duplex of her legs that was negative as well. She had blood cultures drawn, and she received a dose of Zosyn in the emergency room. ALLERGIES: She has no known drug allergies. MEDICATIONS: At home include calcium citrate, vitamin D, magnesium citrate, and vitamin B. PAST MEDICAL HISTORY: Notable for breast cancer. This is her 3rd bout. Originally had radiation and chemotherapy then developed the abdominal obstruction requiring colon resection status post ileostomy in March 2014. She recently had ureteral stents placed in April 2017. Most recently was found to have recurrence in her lumbosacral, and chemotherapy was resumed. SOCIAL HISTORY: She lives alone. No cigarette, alcohol, or substance use. REVIEW OF SYSTEMS: She reports the swelling of her leg is much improved. She is still quite unsteady when she tries to ambulate. PHYSICAL EXAMINATION: Vital Signs: She is afebrile. Temperature 98.7, pulse 85, blood pressure 145/ 77, respiratory rate 20. HEENT: She is normocephalic. Her eyes are anicteric. Neck: Supple. Lungs: Clear to auscultation. Heart: Regular rate and rhythm. Chest Wall: She has a right-sided chest port. There is no erythema or induration. Abdomen: Soft and nontender. Skin: She has no erythema or induration of her right buttock. She describes the leg as still feeling heavy. LABORATORIES: Notable for a white count on admission 24.2 and today 18.7, hemoglobin 8.2, platelets 151, BUN 20, creatinine 1.4. She received Zosyn in the emergency room for broad-spectrum coverage. In summary, this is a 71-year-old woman with: 1. Elevated white count status post Neulasta with treatment for chemotherapy with bilateral ureteral stents. I would suggest we continue hydration and teat with rocephin for possible UTI until cultures are back. 2. Hip and leg pain. Duplex was negative. I would suggest that we obtain x- ray of her leg and a lumbosacral MRI to evaluate for metastatic disease that may be causing compression of a nerve root. 3. Chronic anemia. 4. Elevated creatinine. She has some element of chronic kidney disease. 5. Lastly, metastatic cancer. The case was discussed at length with the oncologist. She received 2 doses of Zosyn, one last night and one this morning. Switch to ceftriaxone until cultures are back. KATHY PALAFOX M.D. [id number] MTDD
--- NOTE | 2017-12-08 17:53 | PN ---
Progress Note (short form) - Note Progress Note: Pt seen and examined follows with . Metastatic Breast cancer on weekly [place]. Comes in with pain of the RLE ( at the back and hip region) to a point where she is unable to bear weight , LS Xrays negative. Also she started using a walker this week due to pain. Patient seen and examined. O/E: General NAD ( says she's better on lying flat) HEENT: NCAT Cor: RRR Lungs: CTA b/l ABd: Benign LE: No CCE, mild tenderness to Lower Lumbar area gait not assessed Last Vital Signs Temp Pulse Resp BP Pulse Ox 98.7 F 85 20 145/77 99 12/08/17 14:20 12/08/17 14:20 12/08/17 14:20 12/08/17 14:20 12/07/17 21:00 CBC, BMP 12/08/17 07:45 12/08/17 07:45 Current Medications Generic Name Dose Route Start Last Admin Trade Name Freq PRN Reason Stop Dose Admin Calcium Carbonate/Cholecalciferol 1 tab 12/08/17 10:00 12/08/17 11:07 Os-Meño 500+D - PO 1 tab DAILY TRICIA Administration Cholecalciferol 3,000 unit 12/08/17 10:00 12/08/17 17:06 Vitamin D3 - PO 3,000 unit DAILY RTICIA Administration Heparin Sodium (Porcine) 5,000 unit 12/07/17 22:00 12/08/17 11:08 Heparin - SQ 5,000 unit BID TRICIA Administration Sodium Chloride 1,000 mls @ 42 mls/hr 12/07/17 20:45 12/08/17 01:01 Normal Saline - IV 42 mls/hr ASDIR TRICIA Administration CEFTRIAXONE IN IS-OSM DEXTROSE 2 gm in 50 mls @ 100 mls/hr 12/08/17 18:00 Ceftriaxone 2 Gm-D5w Bag IVPB DAILY TRICIA Magnesium Oxide 400 mg 12/08/17 10:00 12/08/17 11:07 Mag-Ox - PO 400 mg DAILY TRICIA Administration Multivitamins 1 each 12/08/17 10:00 12/08/17 11:07 Total B With C - PO 1 each DAILY TRICIA Administration UTI: ID c/s appreciated mBreast cancer, on gemcitabine, extensive bony disease Back pain, with unable to bear weight MRI L-S spine. Cr of 1.4, IVF prior to MRI, repeat Cr. Xray for femur. close monitoring fall precuations
[2017-12-08] MEDS ORDERED: PIPERACILLIN/TAZOB 3.375 GM 3.375 GM in DEXTROSE 5%-WATER - 50 ML IVPB SCH (18:00)
[2017-12-08] MEDS ORDERED: DEXTROSE 5%-WATER 100 ML IVPB ONE (18:12)
[2017-12-08] MEDS: CEFTRIAXONE 2 GM in DEXTROSE 5%-WATER 100 ML IVPB SCH (18:15)
[2017-12-08] MEDS: SODIUM CHLORIDE 1,000 ML IV SCH (18:16)
--- NOTE | 2017-12-08 18:32 | PN ---
Physical Exam: SUBJECTIVE: Patient seen and examined Patient is a pleasant lady c/o having low back pain. No fever or chills. OBJECTIVE: Vital Signs Temperature 98.7 F 12/08/17 14:20 Pulse Rate 85 12/08/17 14:20 Respiratory Rate 20 12/08/17 14:20 Blood Pressure 145/77 12/08/17 14:20 O2 Sat by Pulse Oximetry (%) 99 12/07/17 21:00 GENERAL: The patient is awake, alert, and fully oriented, in no acute distress. HEAD: Normal with no signs of trauma. EYES: PERRL, extraocular movements intact, sclera anicteric, conjunctiva clear. ENT: Ears normal, oropharynx clear without exudates, moist mucous membranes. NECK: Trachea midline, full range of motion, supple. LUNGS: Breath sounds equal, clear to auscultation bilaterally, no wheezes, no crackles, no accessory muscle use. HEART: Regular rate and rhythm, S1, S2 without murmur, rub or gallop. ABDOMEN: Soft, nontender, nondistended, normoactive bowel sounds, no guarding, no rebound, no hepatosplenomegaly, no masses. EXTREMITIES: 2+ pulses, warm, well-perfused, no edema. NEUROLOGICAL: Cranial nerves II through XII grossly intact. Normal speech, gait not observed. PSYCH: Normal mood, normal affect. SKIN: Warm, dry, normal turgor, no rashes or lesions noted CBCD WBC 18.7 K/mm3 (4.0-10.0) H 12/08/17 07:45 RBC 2.17 M/mm3 (3.60-5.2) L 12/08/17 07:45 Hgb 8.2 GM/dL (10.7-15.3) L 12/08/17 07:45 Hct 24.1 % (32.4-45.2) L 12/08/17 07:45 MCV 111.4 fl (80-96) H 12/08/17 07:45 MCHC 34.1 g/dl (32.0-36.0) 12/08/17 07:45 RDW 20.1 % (11.6-15.6) H 12/08/17 07:45 Plt Count 151 K/MM3 (134-434) 12/08/17 07:45 MPV 6.8 fl (7.5-11.1) L 12/08/17 07:45 CMP Sodium 138 mmol/L (136-145) 12/08/17 07:45 Potassium 4.0 mmol/L (3.5-5.1) 12/08/17 07:45 Chloride 105 mmol/L (98-107) 12/08/17 07:45 Carbon Dioxide 29 mmol/L (21-32) 12/08/17 07:45 Anion Gap 4 (8-16) L 12/08/17 07:45 BUN 20 mg/dL (7-18) H 12/08/17 07:45 Creatinine 1.4 mg/dL (0.55-1.02) H 12/08/17 07:45 Creat Clearance w eGFR 40.38 (>60) 12/07/17 16:59 Random Glucose 88 mg/dL (74-106) 12/08/17 07:45 Calcium 8.7 mg/dL (8.5-10.1) 12/08/17 07:45 Total Bilirubin 0.6 mg/dL (0.2-1.0) D 12/07/17 16:59 AST 40 U/L (15-37) H 12/07/17 16:59 ALT 29 U/L (12-78) 12/07/17 16:59 Alkaline Phosphatase 105 U/L (45-117) 12/07/17 16:59 Total Protein 5.9 g/dl (6.4-8.2) L 12/07/17 16:59 Albumin 3.0 g/dl (3.4-5.0) L 12/07/17 16:59 Home Medications Medication Instructions Recorded Calcium Citrate/Magnesium/D3 1 each PO DAILY 05/08/17 [Calcium Citrate Chewable Wafer] Cholecalciferol (Vitamin D3) 3,000 unit PO DAILY 05/08/17 [Vitamin D3] Magnesium Citrate 400 mg PO DAILY 05/08/17 Vitamin B Complex 1 each PO DAILY 05/08/17 Current Medications Generic Name Dose Route Start Last Admin Trade Name Freq PRN Reason Stop Dose Admin Calcium Carbonate/Cholecalciferol 1 tab 12/08/17 10:00 12/08/17 11:07 Os-Meño 500+D - PO 1 tab DAILY TRICIA Administration Cholecalciferol 3,000 unit 12/08/17 10:00 04/14/18 17:06 Vitamin D3 - PO 3,000 unit DAILY TRICIA Administration Heparin Sodium (Porcine) 5,000 unit 12/07/17 22:00 12/08/17 11:08 Heparin - SQ 5,000 unit BID TRICIA Administration Ceftriaxone Sodium 2 gm/ 100 mls @ 200 mls/hr 12/08/17 18:00 12/08/17 18:15 Dextrose IVPB 200 mls/hr DAILY TRICIA Administration Sodium Chloride 1,000 mls @ 75 mls/hr 12/08/17 18:00 12/08/17 18:16 Normal Saline - IV 75 mls/hr ASDIR TRICIA Administration Lidocaine 1 patch 12/08/17 18:45 Lidoderm Patch - TP DAILY TRICIA Magnesium Oxide 400 mg 12/08/17 10:00 12/08/17 11:07 Mag-Ox - PO 400 mg DAILY TRICIA Administration Miscellaneous 1 each 12/08/17 22:00 Lidoderm Patch Removal MC DAILY@2200 [facility] Multivitamins 1 each 12/08/17 10:00 12/08/17 11:07 Total B With C - PO 1 each DAILY TRICIA Administration 12/07/17 16:59 WBC 24.2 H D Hgb 8.2 L MCV 111.1 H RDW 19.8 H Neutrophils % Neutrophils % (Manual) 96.0 H* Band Neutrophils Sodium Potassium BUN Creatinine Creat Clearance w eGFR Random Glucose Phosphorus Magnesium 12/07/17 12/08/17 22:10 07:45 WBC 21.8 H 18.7 H Hgb 7.8 L 8.2 L MCV 111.5 H 111.4 H RDW 19.7 H 20.1 H Neutrophils % 94.3 H D 93.4 H Neutrophils % (Manual) Band Neutrophils Sodium Potassium BUN Creatinine Creat Clearance w eGFR Random Glucose Phosphorus Magnesium Xray of L-spine: chronic compression Fx ASSESSMENT/PLAN: Patient is a 71 yr old woman with metastatic breast cancer receiving chemotherapy presented with body stiffness, found to have elevated WBC . # Acute leukocytosis with neutrophilia 94.3-->93.5 s/p chemo on Sunday in an immunocompromised patient due to having metastatic malignancy due to breast c ON Iv Rocephin ,ID consult appreciated. patient has mBreast cancer, on gemcitabine, with extensive bony disease # Acute UTI continue IV antibiotic 1gm Roephin # Low back pain ordered Lidocaine patch as per patient helps her back pain. MRI L-S spine ordered duplex negative. Mri of Lspine ordered by # CKD with baseline (1.4-1.5) #continue home supplements #Diet: patient follows a renal diet because she has a hx of hyperphosphotemia #DVT prophylaxis: heparin BID follow MRI result and follow cbc Visit type - Emergency Visit Emergency Visit: Yes ED Registration Date: 12/07/17 Care time: The patient presented to the Emergency Department on the above date and was hospitalized for further evaluation of their emergent condition. - New Patient This patient is new to me today: Yes Date on this admission: 12/08/17 - Critical Care Critical Care patient: No
[2017-12-08] MEDS: LIDOCAINE 5% TOPICAL PATCH TP SCH (21:46)
[2017-12-08] MEDS: LIDOCAINE PATCH REMOVAL MC SCH (22:20)
[2017-12-09 07:56] LABS: BASO % 0.4 % (0-2.0); EOS % 0.9 % (0-4.5); HEMATOCRIT 23.5 % (32.4-45.2); HEMOGLOBIN 8.1 GM/dL (10.7-15.3); LYMPH % 5.3 % (8-40); MCH 38.7 pg (25.7-33.7); MCHC 34.6 g/dl (32.0-36.0); MEAN CELL VOLUME 111.8 fl (80-96); MONO % 3.6 % (3.8-10.2); NEUT % 89.8 % (42.8-82.8); PLATELET COUNT 121 K/MM3 (134-434); RBC 2.11 M/mm3 (3.60-5.2); RDW 20.2 % (11.6-15.6); WHITE BLOOD COUNT 17.4 K/mm3 (4.0-10.0)
[2017-12-09 08:16] LABS: CHLORIDE 105 mmol/L (98-107); SODIUM 138 mmol/L (136-145)
[2017-12-09 08:30] LABS: ALBUMIN 2.9 g/dl (3.4-5.0); ALK PHOS 110 U/L (45-117); ANION GAP 9 (8-16); BILIRUBIN,TOTAL 0.4 mg/dL (0.2-1.0); BLOOD UREA NITROGEN 17 mg/dL (7-18); CALCIUM 8.6 mg/dL (8.5-10.1); CO2 24 mmol/L (21-32); CREATININE 1.5 mg/dL (0.55-1.02); GLUCOSE,RANDOM 95 mg/dL (74-106); MAGNESIUM 1.9 mg/dL (1.8-2.4); PHOSPHOROUS 3.2 mg/dL (2.5-4.9); SGOT/AST 36 U/L (15-37); SGPT/ALT 22 U/L (12-78); TOT PROT 5.7 g/dl (6.4-8.2)
[2017-12-09] MEDS ORDERED: DEXTROSE 5%-WATER 100 ML IVPB ONE (10:05)
[2017-12-09] MEDS: CEFTRIAXONE 2 GM in DEXTROSE 5%-WATER 100 ML IVPB SCH (10:16)
[2017-12-09] MEDS: MAGNESIUM OXIDE 400 MG TABLET (FP) PO SCH (10:17)
[2017-12-09] MEDS: CHOLECALCIFEROL (VITAMIN D3) 1,000 UNIT TABLET (FP) PO SCH (10:17)
[2017-12-09] MEDS: VITAMIN B COMPLEX W/C COMBO TABLET (FP) PO SCH (10:17)
[2017-12-09] MEDS: HEPARIN NA (PORCINE) 5,000 UNITS/ML 1ML VIAL SQ SCH ×2 (10:17→21:40)
[2017-12-09] MEDS: LIDOCAINE 5% TOPICAL PATCH TP SCH (10:17)
[2017-12-09] MEDS: CALCIUM 500MG/VIT-D 200 UNITS COMBO TABLET (FP) PO SCH (10:18)
--- NOTE | 2017-12-09 13:30 | PN ---
Progress Note (short form) - Note Progress Note: seen and examined. No Xrays are done. feels the same O/E: General NAD HEENT: NCAT Cor: RRR Lungs: CTA b/l ABd: Benign LE: No CCE, mild tenderness to Lower Lumbar area gait not assessed Last Vital Signs Temp Pulse Resp BP Pulse Ox 98.4 F 80 20 156/86 96 12/09/17 05:14 12/09/17 05:14 12/09/17 05:14 12/09/17 05:14 12/08/17 21:00 CBC, BMP 12/09/17 07:00 12/09/17 07:00 Current Medications Generic Name Dose Route Start Last Admin Trade Name Freq PRN Reason Stop Dose Admin Calcium Carbonate/Cholecalciferol 1 tab 12/08/17 10:00 12/09/17 10:18 Os-Meño 500+D - PO 1 tab DAILY TRICIA Administration Cholecalciferol 3,000 unit 12/08/17 10:00 12/09/17 10:17 Vitamin D3 - PO 3,000 unit DAILY TRICIA Administration Heparin Sodium (Porcine) 5,000 unit 12/07/17 22:00 12/09/17 10:17 Heparin - SQ 5,000 unit BID TRICIA Administration Ceftriaxone Sodium 2 gm/ 100 mls @ 200 mls/hr 12/08/17 18:00 12/09/17 10:16 Dextrose IVPB 200 mls/hr DAILY TRICIA Administration Sodium Chloride 1,000 mls @ 75 mls/hr 12/08/17 18:00 12/08/17 18:16 Normal Saline - IV 75 mls/hr ASDIR TRICIA Administration Lidocaine 1 patch 12/08/17 18:45 12/09/17 10:17 Lidoderm Patch - TP 1 patch DAILY TRICIA Administration Magnesium Oxide 400 mg 12/08/17 10:00 12/09/17 10:17 Mag-Ox - PO 400 mg DAILY TRICIA Administration Miscellaneous 1 each 12/08/17 22:00 12/08/17 22:20 Lidoderm Patch Removal MC Not Given DAILY@2200 TRICIA Multivitamins 1 each 12/08/17 10:00 12/09/17 10:17 Total B With C - PO 1 each DAILY TRICIA Administration UTI: ID c/s appreciated mBreast cancer, on gemcitabine, extensive bony disease Back pain, with unable to bear weight MRI L-S spine. Xray for femur. neuro c/s close monitoring fall precautions
--- NOTE | 2017-12-09 14:14 | PN ---
Progress Note (short form) - Note Progress Note: continued buttock pain better with lidocaine Vital Signs Period Temp Pulse Resp BP Sys/Avila Pulse Ox Last 24 Hr 98.3 F-98.7 F 80-85 20-20 145-164/77-86 96 cor-rrr lungs clear abd- soft,nt ext no edema CBC, BMP 12/09/17 07:00 12/09/17 07:00 Microbiology 12/08/17 01:00 Urine - Urine Clean Catch Urine Culture - Final NO GROWTH OBTAINED 12/07/17 20:15 Blood - Peripheral Venous Blood Culture - Preliminary NO GROWTH OBTAINED AFTER 24 HOURS, INCUBATION TO CONTINUE FOR 4 DAYS. 12/07/17 20:15 Blood - Peripheral Venous Blood Culture - Preliminary NO GROWTH OBTAINED AFTER 24 HOURS, INCUBATION TO CONTINUE FOR 4 DAYS. a/p I suspect leukocytosis secondary to neulasta cultues negative, d/c ceftriaxone buttock pain,/leg heaviiness duplex negative suggest xray femur/hip r/o pathologic fracture MRI of LS spine d/w oncology
--- NOTE | 2017-12-09 16:48 | PN ---
Teaching Attending Note Name of Resident: Enrique Avila ATTENDING PHYSICIAN STATEMENT I saw and evaluated the patient. I reviewed the resident's note and discussed the case with the resident. I agree with the resident's findings and plan as documented. SUBJECTIVE: OBJECTIVE: Vital Signs Period Temp Pulse Resp BP Sys/Avila Pulse Ox Last 24 Hr 98.3 F-98.5 F 75-84 20-20 152-164/82-86 96 Laboratory Results - last 24 hr 12/09/17 12/09/17 07:00 07:00 WBC 17.4 H RBC 2.11 L Hgb 8.1 L Hct 23.5 L MCV 111.8 H MCH 38.7 H MCHC 34.6 RDW 20.2 H Plt Count 121 L MPV 7.0 L Neutrophils % 89.8 H Lymphocytes % 5.3 L D Monocytes % 3.6 L D Eosinophils % 0.9 Basophils % 0.4 Sodium 138 Potassium 4.0 Chloride 105 Carbon Dioxide 24 Anion Gap 9 BUN 17 Creatinine 1.5 H Creat Clearance w eGFR 34.23 Random Glucose 95 Calcium 8.6 Phosphorus 3.2 Magnesium 1.9 Total Bilirubin 0.4 D AST 36 ALT 22 Alkaline Phosphatase 110 Total Protein 5.7 L Albumin 2.9 L Current Medications Generic Name Dose Route Start Last Admin Trade Name Freq PRN Reason Stop Dose Admin Calcium Carbonate/Cholecalciferol 1 tab 12/08/17 10:00 12/09/17 10:18 Os-Meño 500+D - PO 1 tab DAILY TRICIA Administration Cholecalciferol 3,000 unit 12/08/17 10:00 12/09/17 10:17 Vitamin D3 - PO 3,000 unit DAILY TRICIA Administration Heparin Sodium (Porcine) 5,000 unit 12/07/17 22:00 12/09/17 10:17 Heparin - SQ 5,000 unit BID TRICIA Administration Ceftriaxone Sodium 2 gm/ 100 mls @ 200 mls/hr 12/08/17 18:00 12/09/17 10:16 Dextrose IVPB 200 mls/hr DAILY TRICIA Administration Sodium Chloride 1,000 mls @ 75 mls/hr 12/08/17 18:00 12/08/17 18:16 Normal Saline - IV 75 mls/hr ASDIR TRICIA Administration Lidocaine 1 patch 12/08/17 18:45 12/09/17 10:17 Lidoderm Patch - TP 1 patch DAILY TRICIA Administration Magnesium Oxide 400 mg 12/08/17 10:00 12/09/17 10:17 Mag-Ox - PO 400 mg DAILY TRICIA Administration Miscellaneous 1 each 12/08/17 22:00 12/08/17 22:20 Lidoderm Patch Removal MC Not Given DAILY@2200 TRICIA Multivitamins 1 each 12/08/17 10:00 12/09/17 10:17 Total B With C - PO 1 each DAILY TRICIA Administration ASSESSMENT AND PLAN: This is a 71 year old woman with a history of metastatic breast cancer who presented with right hip pain and difficulty walking. 1. Leukocytosis with neutrophilia - Likely secondary to Neulasta - No evidence of infection - afebrile, blood and urine cultures negative - Rocephin discontinued 2. Low back and right hip pain - Continue Lidoderm patch - X-rays of right femur, MRI of L-spine pending 3. Stage 3 CKD 4. Breast cancer with bone metastases - On Gemzar 5. Anemia secondary to chronic illness
--- NOTE | 2017-12-09 17:16 | CON.NEURO ---
Consult Consult Specialty:: neurology Reason for Consultation:: Imbalance - History of Present Illness Chief Complaint: weakness History of Present Illness: 71 yr old woman with metastatic breast cancer(dx 2008) s/p mastectomy/RTX/ currently undergoing chemotherapy with Gemzar(last dose on sunday 12/03), hx of bowel obstruction and ischemic colon s/p resection and ileostomy placement presented to ED with 3 days of worsening right hip and difficulty ambulating. Sunday was her 8th dose of Gemzar. She received her usual dose of neulasta on Sunday, after she does experience some stiffness which lasts one day. But this week it was worse on Sunday and progressed on , she was unable to ambulate to the bathroom and required her rolling walker for assistance. Tylenol and motrin did not provide relief. She states that she has been having progressive R LE weakness , associated w intermittent numbness of entire R LE and pain which is traveling from her R Hip and lower back down her limb when try to ambulate. She denies bowel or bladder dysfx; she has h/o neuropathy, ? drug induced. She has had b/l LEs edema which is subsided now. - History Source History Provided By: Patient Limitations to Obtaining History: No Limitations - Past Medical History WEAVER AXMINSTER: Yes: Peripheral Neuropathy Cardio/Vascular: Yes: HTN Renal/: Yes: Renal Failure, Renal Inusuff, UTI (hydronephrosis), Other ( obstructive uropathy) ...: No - Alcohol/Substance Use Hx Alcohol Use: No - Smoking History Smoking history: Never smoked Have you smoked in the past 12 months: No Aproximately how many cigarettes per day: 0 Home Medications - Allergies Allergies/Adverse Reactions: Allergies Allergy/AdvReac Type Severity Reaction Status Date / Time No Known Drug Allergies Allergy Verified 12/07/17 13:55 - Home Medications Home Medications: Ambulatory Orders Calcium Citrate/Magnesium/D3 [Calcium Citrate Chewable Wafer] 1 each PO DAILY Cholecalciferol (Vitamin D3) [Vitamin D3] 3,000 unit PO DAILY 05/08/17 Magnesium Citrate 400 mg PO DAILY 05/08/17 Vitamin B Complex 1 each PO DAILY 05/08/17 Review of Systems Findings/Remarks: all 14 organs were reviewed and -ve beside HPI. Physical Exam-Neuro Vital Signs: Vital Signs Temperature 98.5 F 12/09/17 15:24 Pulse Rate 75 12/09/17 15:24 Respiratory Rate 20 12/09/17 15:24 Blood Pressure 152/82 12/09/17 15:24 O2 Sat by Pulse Oximetry (%) 96 12/08/17 21:00 Constitutional: Yes: Well Nourished, No Distress Neck: Yes: WNL Cardiovascular: Yes: Regular Rate and Rhythm Respiratory: Yes: CTA Bilaterally Musculoskeletal: Yes: Back Pain Edema: RLE: Trace Labs: CBC, BMP 12/09/17 07:00 12/09/17 07:00 INR, PTT INR 1.04 (0.82-1.09) 12/07/17 16:59 - Neuro Exam Level Of Consciousness: Yes: Alert, Oriented to Person, Oriented to Place, Oriented to Time Eyes: Yes: PERRLA Speech: WNL Cranial Nerves II-XII Intact: Yes Gag: Present DTR's: 0 Left Achilles, 0 Right Achilles, 1+ Left Bicep, 1+ Right Bicep, 1+ Left Tricep, 1+ Right Tricep, 1+ Left Brachioradialis, 1+ Right Brachioradialis Response to light touch: Normal Response to pain prick: Normal Response to temperature: Abnormal Response to vibration: Abnormal (Absent at toes and ankles. ) Coordination: Normal: Finger to Nose, Heel to [place] Motor Strength: 4/5: Right Leg, 5/5: Left Arm, Right Arm, Left Leg Imaging - Results MRI: Image Reviewed (Possible lesions at vertebral spine - pending report.) Problem List - Problems (1) 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 (2) UTI (urinary tract infection) Code(s): N39.0 - URINARY TRACT INFECTION, SITE NOT SPECIFIED Assessment/Plan 71 y/o w h/o breast cancer s/p mets to GI , under chemo p/w back pain and R LE weakness , was found to have UTI. On exam R LE 4/5, absent vib at toes and ankles; absent AJs; MRI LS revealed , ? bone lesion . UTI Neuropathy gait dysfx I suggest: MRI-T / C wo MRI pelvic Whole body pet scan to search for bone mets Neuropathy w/u including TSH, SPEP, B12, A1C EMG as OP PT Fall precautions. F/u Hem/onc Lidocaine patch for pain , will avoid NSAID for compromising kidney function - given the leg edema. Health maintenance per primary team. Thank you. Albert Veloz MD T [phone]
--- NOTE | 2017-12-09 17:22 | PN ---
Physical Exam: SUBJECTIVE: Patient seen and examined OBJECTIVE: Vital Signs Period Temp Pulse Resp BP Sys/Avila Pulse Ox Last 24 Hr 98.3 F-98.5 F 75-84 20-20 152-164/82-86 96 GENERAL: The patient is awake, alert, and fully oriented, in no acute distress. HEAD: Normal with no signs of trauma. EYES: PERRL, extraocular movements intact, sclera anicteric, conjunctiva clear. No ptosis. ENT: Ears normal, nares patent, oropharynx clear without exudates, moist mucous membranes. NECK: Trachea midline, full range of motion, supple. LUNGS: Breath sounds equal, clear to auscultation bilaterally, no wheezes, no crackles, no accessory muscle use. HEART: Regular rate and rhythm, S1, S2 without murmur, rub or gallop. ABDOMEN: Soft, nontender, nondistended, normoactive bowel sounds, no guarding, no rebound, no hepatosplenomegaly, no masses. EXTREMITIES: 2+ pulses, warm, well-perfused, no edema. NEUROLOGICAL: Cranial nerves II through XII grossly intact. Normal speech, gait not observed. PSYCH: Normal mood, normal affect. SKIN: Warm, dry, normal turgor, no rashes or lesions noted Laboratory Results - last 24 hr 12/09/17 12/09/17 07:00 07:00 WBC 17.4 H RBC 2.11 L Hgb 8.1 L Hct 23.5 L MCV 111.8 H MCH 38.7 H MCHC 34.6 RDW 20.2 H Plt Count 121 L MPV 7.0 L Neutrophils % 89.8 H Lymphocytes % 5.3 L D Monocytes % 3.6 L D Eosinophils % 0.9 Basophils % 0.4 Sodium 138 Potassium 4.0 Chloride 105 Carbon Dioxide 24 Anion Gap 9 BUN 17 Creatinine 1.5 H Creat Clearance w eGFR 34.23 Random Glucose 95 Calcium 8.6 Phosphorus 3.2 Magnesium 1.9 Total Bilirubin 0.4 D AST 36 ALT 22 Alkaline Phosphatase 110 Total Protein 5.7 L Albumin 2.9 L Active Medications Generic Name Dose Route Start Last Admin Trade Name Freq PRN Reason Stop Dose Admin Calcium Carbonate/Cholecalciferol 1 tab 12/08/17 10:00 12/09/17 10:18 Os-Meño 500+D - PO 1 tab DAILY TRICIA Administration Cholecalciferol 3,000 unit 12/08/17 10:00 12/09/17 10:17 Vitamin D3 - PO 3,000 unit DAILY TRICIA Administration Heparin Sodium (Porcine) 5,000 unit 12/07/17 22:00 12/09/17 10:17 Heparin - SQ 5,000 unit BID TRICIA Administration Sodium Chloride 1,000 mls @ 75 mls/hr 12/08/17 18:00 12/08/17 18:16 Normal Saline - IV 75 mls/hr ASDIR TRICIA Administration Lidocaine 1 patch 12/08/17 18:45 12/09/17 10:17 Lidoderm Patch - TP 1 patch DAILY TRICIA Administration Magnesium Oxide 400 mg 12/08/17 10:00 12/09/17 10:17 Mag-Ox - PO 400 mg DAILY TRICIA Administration Miscellaneous 1 each 12/08/17 22:00 12/08/17 22:20 Lidoderm Patch Removal MC Not Given DAILY@2200 TRICIA Multivitamins 1 each 12/08/17 10:00 12/09/17 10:17 Total B With C - PO 1 each DAILY TRICIA Administration ASSESSMENT/PLAN: This is a 71 year old woman with PMH metastatic breast cancer admitted for leukocytosis in the setting of immunocompromised state. #Leukocytosis w/ neutrophillia -Per ID, likely 2/2 neulasta -No clinical evidence of infection -d/c ABX as per ID #Low back and right hip pain with associated stiffness -per pt, lidocaine patch very effective; will continue -XR right femur pending -MRI of L-spine pending -neuro consult #Stage 3 CKD -monitor creatinine -avoid nephrotoxic agents #Metastatic Breast cancer with bony disease -On Gemcitibine -continued chemo and mgmt per heme onc #Anemia of chronic disease -monitor Hb #FEN -no indication for fluids -monitor lytes -renal diet #Prophylaxis -Hep Sq 5ku BID #Dispo -admit to inpatient med surg Visit type - Emergency Visit Emergency Visit: Yes ED Registration Date: 12/07/17 Care time: The patient presented to the Emergency Department on the above date and was hospitalized for further evaluation of their emergent condition. - New Patient This patient is new to me today: Yes Date on this admission: 12/09/17 - Critical Care Critical Care patient: No
[2017-12-09] MEDS: LIDOCAINE PATCH REMOVAL MC SCH (21:41)
[2017-12-10 08:52] LABS: HEMATOCRIT 25.8 % (32.4-45.2); HEMOGLOBIN 8.9 GM/dL (10.7-15.3); MCH 38.2 pg (25.7-33.7); MCHC 34.5 g/dl (32.0-36.0); MEAN CELL VOLUME 110.8 fl (80-96); MEAN PLT VOLUME 7.1 fl (7.5-11.1); PLATELET COUNT 102 K/MM3 (134-434); RBC 2.33 M/mm3 (3.60-5.2); RDW 20.2 % (11.6-15.6); WHITE BLOOD COUNT 18.5 K/mm3 (4.0-10.0)
[2017-12-10 09:40] LABS: ANION GAP 7 (8-16); BLOOD UREA NITROGEN 15 mg/dL (7-18); CALCIUM 8.4 mg/dL (8.5-10.1); CHLORIDE 107 mmol/L (98-107); CO2 25 mmol/L (21-32); GLUCOSE,RANDOM 81 mg/dL (74-106); SODIUM 139 mmol/L (136-145)
[2017-12-10 09:42] LABS: CREATININE 1.3 mg/dL (0.55-1.02)
--- NOTE | 2017-12-10 10:54 | PN ---
Progress Note (short form) - Note Progress Note: no fevers no diarrhea eating well no bowel or urinary incontinence buttock/leg pain is unchanged still with difficulty walking Vital Signs Period Temp Pulse Resp BP Sys/Avila Pulse Ox Last 24 Hr 98.2 F-99.2 F 75-83 12-20 149-159/74-88 97 cor-rrr lungs clear abd soft,nt ext no edema CBC, BMP 12/10/17 07:30 12/10/17 07:30 Microbiology 12/07/17 20:15 Blood - Peripheral Venous Blood Culture - Preliminary NO GROWTH OBTAINED AFTER 48 HOURS, INCUBATION TO CONTINUE FOR 3 DAYS. 12/07/17 20:15 Blood - Peripheral Venous Blood Culture - Preliminary NO GROWTH OBTAINED AFTER 48 HOURS, INCUBATION TO CONTINUE FOR 3 DAYS. 12/08/17 01:00 Urine - Urine Clean Catch Urine Culture - Final NO GROWTH OBTAINED a/p I suspect leukocytosis secondary to neulasta but +UA cultures are negative if leukocytosis does not resolve would get sonogram of kidneys to r/o hydronephrosis- she has history of ureteral stents buttock pain,/leg heaviiness duplex negative xray femur/hip r/o pathologic fracture-pending MRI of LS spine-pending metastic breast cancer Problem List - Problems (1) Leukocytosis Code(s): D72.829 - ELEVATED WHITE BLOOD CELL COUNT, UNSPECIFIED Qualifiers: Leukocytosis type: unspecified Qualified Code(s): D72.829 - Elevated white blood cell count, unspecified (2) UTI (urinary tract infection) Code(s): N39.0 - URINARY TRACT INFECTION, SITE NOT SPECIFIED (3) 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
[2017-12-10] MEDS: CALCIUM 500MG/VIT-D 200 UNITS COMBO TABLET (FP) PO SCH (11:03)
[2017-12-10] MEDS: CHOLECALCIFEROL (VITAMIN D3) 1,000 UNIT TABLET (FP) PO SCH (11:04)
[2017-12-10] MEDS: MAGNESIUM OXIDE 400 MG TABLET (FP) PO SCH (11:04)
[2017-12-10] MEDS: HEPARIN NA (PORCINE) 5,000 UNITS/ML 1ML VIAL SQ SCH ×2 (11:04→22:24)
[2017-12-10] MEDS: VITAMIN B COMPLEX W/C COMBO TABLET (FP) PO SCH (11:04)
[2017-12-10] MEDS: LIDOCAINE 5% TOPICAL PATCH TP SCH (11:05)
--- NOTE | 2017-12-10 12:51 | EKG ---
Test Reason : Blood Pressure : / mmHG Vent. Rate : 079 BPM Atrial Rate : 079 BPM P-R Int : 166 ms QRS Dur : 084 ms QT Int : 386 ms P-R-T Axes : 046 063 052 degrees QTc Int : 442 ms NORMAL SINUS RHYTHM NORMAL ECG WHEN COMPARED WITH ECG OF 12-MAY-2016 09:48, NO SIGNIFICANT CHANGE WAS FOUND Confirmed by MOR HULL MD ([id number]) on 12/10/2017 12:50:36 PM Referred By: Alan HERNDON Confirmed By:MOR HULL MD
[2017-12-10] MEDS ORDERED: DEXAMETHASONE SOD PHOSPHATE 20 MG/5 ML VIAL IVPB ONE (13:00)
[2017-12-10] MEDS ORDERED: DEXAMETHASONE SOD PHOSPHATE 4 MG/1 ML VIAL IVPB SCH (13:15)
[2017-12-10] MEDS ORDERED: DEXAMETHASONE SOD PHOSPHATE 20 MG/5 ML VIAL IVPB SCH (13:15)
[2017-12-10] MEDS ORDERED: DEXAMETHASONE SOD PHOSPHATE 10 MG/1 ML VIAL IVPUSH ONE (14:00)
[2017-12-10] MEDS: DEXAMETHASONE SOD PHOSPHATE 4 MG/1 ML VIAL IVPUSH SCH ×2 (14:00→21:30)
--- NOTE | 2017-12-10 18:32 | PN ---
Teaching Attending Note Name of Resident: Enrique Avila ATTENDING PHYSICIAN STATEMENT I saw and evaluated the patient. I reviewed the resident's note and discussed the case with the resident. I agree with the resident's findings and plan as documented. SUBJECTIVE: Back pain is improving. OBJECTIVE: Vital Signs Period Temp Pulse Resp BP Sys/Avila Pulse Ox Last 24 Hr 98.2 F-99.3 F 76-83 12-20 149-159/74-90 97 HEART: S1S2, RRR LUNGS: Clear ABDOMEN: Obese, soft, non-tender, non-distended, normal BS EXTREMITIES: No edema Laboratory Results - last 24 hr 12/10/17 12/10/17 07:30 07:30 WBC 18.5 H RBC 2.33 L Hgb 8.9 L Hct 25.8 L MCV 110.8 H MCH 38.2 H MCHC 34.5 RDW 20.2 H Plt Count 102 L MPV 7.1 L Sodium 139 Potassium 4.0 Chloride 107 Carbon Dioxide 25 Anion Gap 7 L BUN 15 Creatinine 1.3 H Random Glucose 81 Calcium 8.4 L Current Medications Generic Name Dose Route Start Last Admin Trade Name Freq PRN Reason Stop Dose Admin Calcium Carbonate/Cholecalciferol 1 tab 12/08/17 10:00 12/10/17 11:03 Os-Meño 500+D - PO 1 tab DAILY TRICIA Administration Cholecalciferol 3,000 unit 12/08/17 10:00 12/10/17 11:04 Vitamin D3 - PO 3,000 unit DAILY TRICIA Administration Dexamethasone Sodium Phosphate 4 mg 12/10/17 15:00 12/10/17 14:00 Decadron Injection - IVPUSH Not Given Q6H-IV TRICIA Heparin Sodium (Porcine) 5,000 unit 12/07/17 22:00 12/10/17 11:04 Heparin - SQ 5,000 unit BID TRICIA Administration Sodium Chloride 1,000 mls @ 75 mls/hr 12/08/17 18:00 12/08/17 18:16 Normal Saline - IV 75 mls/hr ASDIR TRICIA Administration Lidocaine 1 patch 12/08/17 18:45 12/10/17 11:05 Lidoderm Patch - TP 1 patch DAILY TRICIA Administration Magnesium Oxide 400 mg 12/08/17 10:00 12/10/17 11:04 Mag-Ox - PO 400 mg DAILY TRICIA Administration Miscellaneous 1 each 12/08/17 22:00 12/09/17 21:41 Lidoderm Patch Removal MC 1 each DAILY@2200 TRICIA Administration Multivitamins 1 each 12/08/17 10:00 12/10/17 11:04 Total B With C - PO 1 each DAILY TRICIA Administration ASSESSMENT AND PLAN: This is a 71 year old woman with a history of metastatic breast cancer who presented with right hip pain and difficulty walking. 1. Leukocytosis with neutrophilia - Likely secondary to Neulasta - No evidence of infection - afebrile, blood and urine cultures negative - Rocephin discontinued 2. Low back and right hip pain - Continue Lidoderm patch - Decadron started - X-rays of right femur pending - MRI of L-spine shows diffuse bone metastases; chronic mild to moderate compression of L5 superior endplate; mild compression of L3 superior endplate; mild compression of T12 vertebral body; multilevel mild disc bulging with slight L5 nerve root impingement and moderate central stenosis; dilated CBD; moderate bilateral hydronephrosis 3. Stage 3 CKD - Stable 4. Breast cancer with bone metastases - On Gemzar 5. Anemia secondary to chronic illness - Hemoglobin stable 6. Thrombocytopenia
--- NOTE | 2017-12-10 19:01 | PN ---
Physical Exam: SUBJECTIVE: Patient seen and examined at bedside. No new complaints. no events overnight. OBJECTIVE: Vital Signs Period Temp Pulse Resp BP Sys/Avila Pulse Ox Last 24 Hr 98.2 F-99.3 F 76-83 12-20 149-159/74-90 97 GENERAL: The patient is awake, alert, and fully oriented, in no acute distress. NECK: Trachea midline, full range of motion, supple. LUNGS: Breath sounds equal, clear to auscultation bilaterally, no wheezes, no crackles, no accessory muscle use. HEART: Regular rate and rhythm, S1, S2 without murmur, rub or gallop. ABDOMEN: Soft, nontender, nondistended, normoactive bowel sounds, no guarding, no rebound, no hepatosplenomegaly, no masses. EXTREMITIES: 2+ pulses, warm, well-perfused, no edema. NEUROLOGICAL: Cranial nerves II through X grossly intact. Normal speech, gait not observed SKIN: Warm, dry, normal turgor, no rashes or lesions noted Laboratory Results - last 24 hr 12/10/17 12/10/17 07:30 07:30 WBC 18.5 H RBC 2.33 L Hgb 8.9 L Hct 25.8 L MCV 110.8 H MCH 38.2 H MCHC 34.5 RDW 20.2 H Plt Count 102 L MPV 7.1 L Sodium 139 Potassium 4.0 Chloride 107 Carbon Dioxide 25 Anion Gap 7 L BUN 15 Creatinine 1.3 H Random Glucose 81 Calcium 8.4 L Active Medications Generic Name Dose Route Start Last Admin Trade Name Freq PRN Reason Stop Dose Admin Calcium Carbonate/Cholecalciferol 1 tab 12/08/17 10:00 12/10/17 11:03 Os-Meño 500+D - PO 1 tab DAILY TRICIA Administration Cholecalciferol 3,000 unit 12/08/17 10:00 12/10/17 11:04 Vitamin D3 - PO 3,000 unit DAILY TRICIA Administration Dexamethasone Sodium Phosphate 4 mg 12/10/17 15:00 12/10/17 14:00 Decadron Injection - IVPUSH Not Given Q6H-IV TRICIA Heparin Sodium (Porcine) 5,000 unit 12/07/17 22:00 12/10/17 11:04 Heparin - SQ 5,000 unit BID TRICIA Administration Sodium Chloride 1,000 mls @ 75 mls/hr 12/08/17 18:00 12/08/17 18:16 Normal Saline - IV 75 mls/hr ASDIR TRICIA Administration Lidocaine 1 patch 12/08/17 18:45 12/10/17 11:05 Lidoderm Patch - TP 1 patch DAILY TRICIA Administration Magnesium Oxide 400 mg 12/08/17 10:00 12/10/17 11:04 Mag-Ox - PO 400 mg DAILY TRICIA Administration Miscellaneous 1 each 12/08/17 22:00 12/09/17 21:41 Lidoderm Patch Removal MC 1 each DAILY@2200 TRICIA Administration Multivitamins 1 each 12/08/17 10:00 12/10/17 11:04 Total B With C - PO 1 each DAILY TRICIA Administration ASSESSMENT/PLAN: This is a 71 year old woman with PMH metastatic breast cancer admitted for leukocytosis in the setting of immunocompromised state. #Leukocytosis w/ neutrophillia -Per ID, likely 2/2 neulasta -No clinical evidence of infection -WBC trending down #Low back and right hip pain with associated stiffness -per pt, lidocaine patch very effective; will continue -XR right femur pending read -MRI of L-spine shows bony mets w/ mild to moderate compression at multiple levels. b/l hydronephrosis noted. -neuro consult -ordered TSH, B12, A1c #Stage 3 CKD -monitor creatinine( 1.4 -> 1.5 -> 1.3) -avoid nephrotoxic agents #Metastatic Breast cancer with bony disease -On Gemcitibine -continued chemo and mgmt per heme onc #Anemia of chronic disease -monitor Hb #FEN -no indication for fluids -monitor lytes -renal diet #Prophylaxis -Hep Sq 5ku BID #Dispo -admit to inpatient med surg Visit type - Emergency Visit Emergency Visit: Yes ED Registration Date: 12/07/17 Care time: The patient presented to the Emergency Department on the above date and was hospitalized for further evaluation of their emergent condition. - New Patient This patient is new to me today: No - Critical Care Critical Care patient: No
--- NOTE | 2017-12-10 20:39 | PN ---
Progress Note, Physician Chief Complaint: Right leg weakness History of Present Illness: progressive right leg weakness, pain and difficulty walking, dramatically improved after day and a half of steroids. - Current Medication List Current Medications: Active Medications Calcium Carbonate/Cholecalciferol (Os-Meño 500+D -) 1 tab PO DAILY [facility] Last Admin: 12/10/17 11:03 Dose: 1 tab Cholecalciferol (Vitamin D3 -) 3,000 unit PO DAILY [facility] Last Admin: 12/10/17 11:04 Dose: 3,000 unit Dexamethasone Sodium Phosphate (Decadron Injection -) 4 mg IVPUSH Q6H-IV [facility] Last Admin: 12/10/17 14:00 Dose: Not Given Heparin Sodium (Porcine) (Heparin -) 5,000 unit SQ BID [facility] Last Admin: 12/10/17 11:04 Dose: 5,000 unit Sodium Chloride (Normal Saline -) 1,000 mls @ 75 mls/hr IV ASDIR [facility] Last Admin: 12/08/17 18:16 Dose: 75 mls/hr Lidocaine (Lidoderm Patch -) 1 patch TP DAILY [facility] Last Admin: 12/10/17 11:05 Dose: 1 patch Magnesium Oxide (Mag-Ox -) 400 mg PO DAILY [facility] Last Admin: 12/10/17 11:04 Dose: 400 mg Miscellaneous (Lidoderm Patch Removal) 1 each MC DAILY@2200 [facility] Last Admin: 12/09/17 21:41 Dose: 1 each Multivitamins (Total B With C -) 1 each PO DAILY [facility] Last Admin: 12/10/17 11:04 Dose: 1 each - Objective Vital Signs: Vital Signs Temperature 99.3 F 12/10/17 13:30 Pulse Rate 83 12/10/17 13:30 Respiratory Rate 18 12/10/17 13:30 Blood Pressure 158/90 12/10/17 13:30 O2 Sat by Pulse Oximetry (%) 97 12/09/17 21:00 Neurological: Yes: Other (she is now really virtually showing symmetric strength in her legs with strong gait with her walker. much improved) Labs: CBC, BMP 12/10/17 07:30 12/10/17 07:30 INR, PTT INR 1.04 (0.82-1.09) 12/07/17 16:59 Problem List - Problems (1) 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 (2) Metastatic disease Code(s): C80.1 - MALIGNANT (PRIMARY) NEOPLASM, UNSPECIFIED Assessment/Plan r/o myelopathy, review mri c and t spine pending
[2017-12-10] MEDS: SODIUM CHLORIDE 1,000 ML IV SCH ×2 (22:23→22:24)
[2017-12-10] MEDS: LIDOCAINE PATCH REMOVAL MC SCH (22:25)
--- NOTE | 2017-12-10 22:33 | PN ---
Progress Note (short form) - Note Progress Note: Patient seen and examined vitals/labs/meds reviewed 71 y/o with metastatic breast cancer, presenting with back pain On decadrom Await MRI LS spine To go for MRI C/T spine
[2017-12-11] MEDS: DEXAMETHASONE SOD PHOSPHATE 4 MG/1 ML VIAL IVPUSH SCH ×4 (02:24→22:25)
[2017-12-11 07:52] LABS: HEMATOCRIT 28.9 % (32.4-45.2); HEMOGLOBIN 9.7 GM/dL (10.7-15.3); MCH 37.3 pg (25.7-33.7); MCHC 33.6 g/dl (32.0-36.0); MEAN CELL VOLUME 111.2 fl (80-96); MEAN PLT VOLUME 8.6 fl (7.5-11.1); PLATELET COUNT 125 K/MM3 (134-434); RDW 20.3 % (11.6-15.6)
[2017-12-11 08:33] LABS: ANION GAP 10 (8-16); BLOOD UREA NITROGEN 21 mg/dL (7-18); CALCIUM 8.9 mg/dL (8.5-10.1); CHLORIDE 105 mmol/L (98-107); CO2 23 mmol/L (21-32); CREATININE 1.5 mg/dL (0.55-1.02); GLUCOSE,RANDOM 148 mg/dL (74-106); SODIUM 138 mmol/L (136-145)
--- NOTE | 2017-12-11 09:46 | PN ---
Progress Note, Physician Chief Complaint: Right leg weakness History of Present Illness: progressive right leg weakness, pain and difficulty walking, dramatically improved after day and a half of steroids. No significant change overnight. Had MRI cervical and thoracic spine and await results. - Current Medication List Current Medications: Active Medications Calcium Carbonate/Cholecalciferol (Os-Meño 500+D -) 1 tab PO DAILY [facility] Last Admin: 12/10/17 11:03 Dose: 1 tab Cholecalciferol (Vitamin D3 -) 3,000 unit PO DAILY [facility] Last Admin: 12/10/17 11:04 Dose: 3,000 unit Dexamethasone Sodium Phosphate (Decadron Injection -) 4 mg IVPUSH Q6H-IV [facility] Last Admin: 12/11/17 02:24 Dose: 4 mg Heparin Sodium (Porcine) (Heparin -) 5,000 unit SQ BID [facility] Last Admin: 12/10/17 22:24 Dose: 5,000 unit Sodium Chloride (Normal Saline -) 1,000 mls @ 75 mls/hr IV ASDIR [facility] Last Admin: 12/10/17 22:24 Dose: Not Given Lidocaine (Lidoderm Patch -) 1 patch TP DAILY [facility] Last Admin: 12/10/17 11:05 Dose: 1 patch Magnesium Oxide (Mag-Ox -) 400 mg PO DAILY [facility] Last Admin: 12/10/17 11:04 Dose: 400 mg Miscellaneous (Lidoderm Patch Removal) 1 each MC DAILY@2200 [facility] Last Admin: 12/10/17 22:25 Dose: 1 each Multivitamins (Total B With C -) 1 each PO DAILY [facility] Last Admin: 12/10/17 11:04 Dose: 1 each - Objective Vital Signs: Vital Signs Temperature 98.1 F 12/11/17 05:49 Pulse Rate 66 12/11/17 05:49 Respiratory Rate 20 12/11/17 05:49 Blood Pressure 148/82 12/11/17 05:49 O2 Sat by Pulse Oximetry (%) 97 12/10/17 22:00 Neurological: Yes: Other (motor strength, 5/5) Labs: CBC, BMP 12/11/17 06:35 12/11/17 06:35 INR, PTT INR 1.04 (0.82-1.09) 12/07/17 16:59 Problem List - Problems (1) 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 (2) Metastatic disease Code(s): C80.1 - MALIGNANT (PRIMARY) NEOPLASM, UNSPECIFIED Assessment/Plan r/o myelopathy, review mri c and t spine completed, but await official reads.
[2017-12-11] MEDS ORDERED: PT OWN MED DRAWER 7, Y5N ONE (10:09)
[2017-12-11] MEDS: SODIUM CHLORIDE 1,000 ML IV SCH ×2 (10:12→22:26)
[2017-12-11] MEDS: MAGNESIUM OXIDE 400 MG TABLET (FP) PO SCH (10:12)
[2017-12-11] MEDS: CALCIUM 500MG/VIT-D 200 UNITS COMBO TABLET (FP) PO SCH (10:12)
[2017-12-11] MEDS: HEPARIN NA (PORCINE) 5,000 UNITS/ML 1ML VIAL SQ SCH ×2 (10:12→22:10)
[2017-12-11] MEDS: CHOLECALCIFEROL (VITAMIN D3) 1,000 UNIT TABLET (FP) PO SCH (10:12)
[2017-12-11] MEDS: VITAMIN B COMPLEX W/C COMBO TABLET (FP) PO SCH (10:12)
[2017-12-11] MEDS: LIDOCAINE 5% TOPICAL PATCH TP SCH (10:14)
[2017-12-11 11:28] LABS: ANISOCYTOSIS 1+; MACROCYTOSIS 2+; OVALOCYTE 1+; PLATELET ESTIMATE DECREASED; TOXIC GRANULATION 1+
--- NOTE | 2017-12-11 12:42 | PN ---
Progress Note (short form) - Note Progress Note: no fevers no diarrhea eating well no bowel or urinary incontinence started on steroids yesterday able to ambulate today pain much improved Vital Signs Period Temp Pulse Resp BP Sys/Avila Pulse Ox Last 24 Hr 98.1 F-99.3 F 66-83 18-20 141-161/82-97 97 cor-rrr lungs clear abd soft,nt +ostomy ext no edema CBC, BMP 12/11/17 06:35 12/11/17 06:35 Microbiology 12/07/17 20:15 Blood - Peripheral Venous Blood Culture - Preliminary NO GROWTH OBTAINED AFTER 72 HOURS, INCUBATION TO CONTINUE FOR 2 DAYS. 12/07/17 20:15 Blood - Peripheral Venous Blood Culture - Preliminary NO GROWTH OBTAINED AFTER 72 HOURS, INCUBATION TO CONTINUE FOR 2 DAYS. 12/08/17 01:00 Urine - Urine Clean Catch Urine Culture - Final NO GROWTH OBTAINED a/p leukocytosis- secondary to steroids started on decadron yesterday buttock pain,/leg heaviiness-?myelopathy- improved with steroids MRI f/u with neurology metastic breast cancer chronic hydronephrosis with titanium stents- followed by dr rocha, urine culture negative please call back if needed Problem List - Problems (1) Leukocytosis Code(s): D72.829 - ELEVATED WHITE BLOOD CELL COUNT, UNSPECIFIED Qualifiers: Leukocytosis type: unspecified Qualified Code(s): D72.829 - Elevated white blood cell count, unspecified (2) UTI (urinary tract infection) Code(s): N39.0 - URINARY TRACT INFECTION, SITE NOT SPECIFIED (3) 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
--- NOTE | 2017-12-11 17:19 | PN ---
Physical Exam: SUBJECTIVE: Patient seen and examined at bedside. Patient's pain is much improved after addition of decadron by heme-onc. Patient also able to walk without pain with assistance. OBJECTIVE: Vital Signs Period Temp Pulse Resp BP Sys/Avila Pulse Ox Last 24 Hr 98.1 F-98.7 F 66-86 18-20 141-161/82-97 97-97 GENERAL: The patient is awake, alert, and fully oriented, in no acute distress. NECK: Trachea midline, full range of motion, supple. LUNGS: Breath sounds equal, clear to auscultation bilaterally, no wheezes, no crackles, no accessory muscle use. HEART: Regular rate and rhythm, S1, S2 without murmur, rub or gallop. ABDOMEN: Soft, nontender, nondistended, normoactive bowel sounds, no guarding, no rebound, no hepatosplenomegaly, no masses. EXTREMITIES: 2+ pulses, warm, well-perfused, no edema. NEUROLOGICAL: Cranial nerves II through X grossly intact. Normal speech, gait not observed. PSYCH: Normal mood, normal affect. SKIN: Warm, dry, normal turgor, no rashes or lesions noted Laboratory Results - last 24 hr 12/11/17 12/11/17 12/11/17 06:35 06:35 06:35 WBC 33.0 H* D RBC 2.60 L Hgb 9.7 L Hct 28.9 L MCV 111.2 H MCH 37.3 H MCHC 33.6 RDW 20.3 H Plt Count 125 L D MPV 8.6 D Neutrophils % (Manual) 92.8 H* Band Neutrophils % 1.0 Lymphocytes % (Manual) 4.1 L D Monocytes % (Manual) 1 L D Eosinophils % (Manual) 0.0 Basophils % (Manual) 0.0 Myelocytes % (Man) 1 Promyelocytes % (Man) 0 Blast Cells % (Manual) 0 Nucleated RBC % 0 Metamyelocytes 0 Toxic Granulation 1+ Platelet Estimate Decreased Polychromasia 1+ Anisocytosis 1+ Microcytosis 1+ Macrocytosis 2+ Ovalocytes 1+ Sodium 138 Potassium 4.0 Chloride 105 Carbon Dioxide 23 Anion Gap 10 BUN 21 H Creatinine 1.5 H Random Glucose 148 H Hemoglobin A1c % 4.7 L Calcium 8.9 Vitamin B12 4229 H TSH 1.37 Active Medications Generic Name Dose Route Start Last Admin Trade Name Freq PRN Reason Stop Dose Admin Amlodipine Besylate 5 mg 12/12/17 10:00 Norvasc - PO DAILY [facility] Calcium Carbonate/Cholecalciferol 1 tab 12/08/17 10:00 12/11/17 10:12 Os-Meño 500+D - PO 1 tab DAILY [facility] Administration Cholecalciferol 3,000 unit 12/08/17 10:00 12/11/17 10:12 Vitamin D3 - PO 3,000 unit DAILY [facility] Administration Dexamethasone Sodium Phosphate 4 mg 12/10/17 15:00 12/11/17 14:19 Decadron Injection - IVPUSH 4 mg Q6H-IV [facility] Administration Heparin Sodium (Porcine) 5,000 unit 12/07/17 22:00 12/11/17 10:12 Heparin - SQ 5,000 unit BID [facility] Administration Sodium Chloride 1,000 mls @ 75 mls/hr 12/08/17 18:00 12/11/17 10:12 Normal Saline - IV 75 mls/hr ASDIR [facility] Administration Lidocaine 1 patch 12/08/17 18:45 12/11/17 10:14 Lidoderm Patch - TP 1 patch DAILY [facility] Administration Magnesium Oxide 400 mg 12/08/17 10:00 12/11/17 10:12 Mag-Ox - PO 400 mg DAILY [facility] Administration Miscellaneous 1 each 12/08/17 22:00 12/10/17 22:25 Lidoderm Patch Removal MC 1 each DAILY@2200 [facility] Administration Multivitamins 1 each 12/08/17 10:00 12/11/17 10:12 Total B With C - PO 1 each DAILY [facility] Administration ASSESSMENT/PLAN: This is a 71 year old woman with PMH metastatic breast cancer admitted for leukocytosis in the setting of immunocompromised state. #Low back and right hip pain with associated stiffness -per pt, lidocaine patch very effective; will continue -MRI of spine shows areas of sponsylethesis as well as mild nerve compression and bony mets. -No evidence of cord compression on MRI. -neuro consult changed to Dr. Mason at the request of the patient. #Leukocytosis w/ neutrophillia liv 2/2 neulasta and steroid use -WBC bump this AM correlates with implementation of decadron #Stage 3 CKD -monitor creatinine( 1.4 -> 1.5 -> 1.3) -avoid nephrotoxic agents #Metastatic Breast cancer with bony disease -On Gemcitibine -continued chemo and mgmt per heme onc -Heme-onc will conduct bone scan #Anemia of chronic disease -monitor Hb #FEN -no indication for fluids -monitor lytes -renal diet #Prophylaxis -Hep Sq 5ku BID #Dispo -admit to inpatient med surg Visit type - Emergency Visit Emergency Visit: Yes ED Registration Date: 12/07/17 Care time: The patient presented to the Emergency Department on the above date and was hospitalized for further evaluation of their emergent condition. - New Patient This patient is new to me today: No - Critical Care Critical Care patient: No
--- NOTE | 2017-12-11 17:20 | PN ---
Teaching Attending Note Name of Resident: Enrique Avila ATTENDING PHYSICIAN STATEMENT I saw and evaluated the patient. I reviewed the resident's note and discussed the case with the resident. I agree with the resident's findings and plan as documented. SUBJECTIVE: Patient wants to go home. Back pain is better and she says she can ambulate. OBJECTIVE: Vital Signs Period Temp Pulse Resp BP Sys/Avila Pulse Ox Last 24 Hr 98.1 F-98.7 F 66-86 18-20 141-161/82-97 97-97 HEART: S1S2, RRR LUNGS: Clear ABDOMEN: Obese, soft, non-tender, non-distended, normal BS EXTREMITIES: No edema Laboratory Results - last 24 hr 12/11/17 12/11/17 12/11/17 06:35 06:35 06:35 WBC 33.0 H* D RBC 2.60 L Hgb 9.7 L Hct 28.9 L MCV 111.2 H MCH 37.3 H MCHC 33.6 RDW 20.3 H Plt Count 125 L D MPV 8.6 D Neutrophils % (Manual) 92.8 H* Band Neutrophils % 1.0 Lymphocytes % (Manual) 4.1 L D Monocytes % (Manual) 1 L D Eosinophils % (Manual) 0.0 Basophils % (Manual) 0.0 Myelocytes % (Man) 1 Promyelocytes % (Man) 0 Blast Cells % (Manual) 0 Nucleated RBC % 0 Metamyelocytes 0 Toxic Granulation 1+ Platelet Estimate Decreased Polychromasia 1+ Anisocytosis 1+ Microcytosis 1+ Macrocytosis 2+ Ovalocytes 1+ Sodium 138 Potassium 4.0 Chloride 105 Carbon Dioxide 23 Anion Gap 10 BUN 21 H Creatinine 1.5 H Random Glucose 148 H Hemoglobin A1c % 4.7 L Calcium 8.9 Vitamin B12 4229 H TSH 1.37 Current Medications Generic Name Dose Route Start Last Admin Trade Name Freq PRN Reason Stop Dose Admin Amlodipine Besylate 5 mg 12/12/17 10:00 Norvasc - PO DAILY [facility] Calcium Carbonate/Cholecalciferol 1 tab 12/08/17 10:00 12/11/17 10:12 Os-Meño 500+D - PO 1 tab DAILY [facility] Administration Cholecalciferol 3,000 unit 12/08/17 10:00 12/11/17 10:12 Vitamin D3 - PO 3,000 unit DAILY [facility] Administration Dexamethasone Sodium Phosphate 4 mg 12/10/17 15:00 12/11/17 14:19 Decadron Injection - IVPUSH 4 mg Q6H-IV [facility] Administration Heparin Sodium (Porcine) 5,000 unit 12/07/17 22:00 12/11/17 10:12 Heparin - SQ 5,000 unit BID [facility] Administration Sodium Chloride 1,000 mls @ 75 mls/hr 12/08/17 18:00 12/11/17 10:12 Normal Saline - IV 75 mls/hr ASDIR [facility] Administration Lidocaine 1 patch 12/08/17 18:45 12/11/17 10:14 Lidoderm Patch - TP 1 patch DAILY [facility] Administration Magnesium Oxide 400 mg 12/08/17 10:00 12/11/17 10:12 Mag-Ox - PO 400 mg DAILY [facility] Administration Miscellaneous 1 each 12/08/17 22:00 12/10/17 22:25 Lidoderm Patch Removal MC 1 each DAILY@2200 [facility] Administration Multivitamins 1 each 12/08/17 10:00 12/11/17 10:12 Total B With C - PO 1 each DAILY [facility] Administration ASSESSMENT AND PLAN: This is a 71 year old woman with a history of metastatic breast cancer who presented with right hip pain and difficulty walking. 1. Leukocytosis with neutrophilia - Likely secondary to Neulasta - Increased today likely secondary to steroids - No evidence of infection - afebrile, blood and urine cultures negative - Rocephin discontinued 2. Low back and right hip pain with possible LE myelopathy - Continue Decadron, Lidoderm patch - Decadron started - X-rays of right femur pending - MRI of L-spine shows diffuse bone metastases; chronic mild to moderate compression of L5 superior endplate; mild compression of L3 superior endplate; mild compression of T12 vertebral body; multilevel mild disc bulging with slight L5 nerve root impingement and moderate central stenosis; dilated CBD; moderate bilateral hydronephrosis - MRI of C-spine shows bone metastases; spondylosis with mild canal stenosis at C4-C5 and C5-C6; no cord compression - MRI of T-spine shows numerous metastatic lesions in all thoracic vertebrae ; thoracic spondylosis; small bilateral layering pleural effusions; hydronephrosis 3. Stage 3 CKD 4. Breast cancer with bone metastases - On Gemzar 5. Anemia secondary to chronic illness - Hemoglobin stable 6. Thrombocytopenia - Platelets increased to 125 today - Continue to monitor
--- NOTE | 2017-12-11 18:28 | PN ---
Progress Note (short form) - Note Progress Note: Patient seen and examined Improvement in ambulation with steroids Pain right buttock cheek LE neuropathy Last Vital Signs Temp Pulse Resp BP Pulse Ox 98.2 F 84 20 160/89 97 12/11/17 17:20 12/11/17 17:20 12/11/17 17:20 12/11/17 17:20 12/11/17 10:06 HEENT: PAT, EOM Intact Oropharynx: No thrush, No mucositis Breasts:s/p right mastectomy , telangiectasia chest wall ; left breast without masses Cor: RSR, No murmurs, No gallops Lungs: Clear to P&A Abd: Soft, Normal bowel sounds, No organomegaly Ext:No significant edema Skin: No rashes, Integument intact CBC, BMP 12/11/17 06:35 12/11/17 06:35 Current Medications Generic Name Dose Route Start Last Admin Trade Name Freq PRN Reason Stop Dose Admin Amlodipine Besylate 5 mg 12/12/17 10:00 Norvasc - PO DAILY [facility] Calcium Carbonate/Cholecalciferol 1 tab 12/08/17 10:00 12/11/17 10:12 Os-Meño 500+D - PO 1 tab DAILY [facility] Administration Cholecalciferol 3,000 unit 12/08/17 10:00 12/11/17 10:12 Vitamin D3 - PO 3,000 unit DAILY [facility] Administration Dexamethasone Sodium Phosphate 4 mg 12/10/17 15:00 12/11/17 14:19 Decadron Injection - IVPUSH 4 mg Q6H-IV [facility] Administration Heparin Sodium (Porcine) 5,000 unit 12/07/17 22:00 12/11/17 10:12 Heparin - SQ 5,000 unit BID [facility] Administration Sodium Chloride 1,000 mls @ 75 mls/hr 12/08/17 18:00 12/11/17 10:12 Normal Saline - IV 75 mls/hr ASDIR [facility] Administration Lidocaine 1 patch 12/08/17 18:45 12/11/17 10:14 Lidoderm Patch - TP 1 patch DAILY [facility] Administration Magnesium Oxide 400 mg 12/08/17 10:00 12/11/17 10:12 Mag-Ox - PO 400 mg DAILY [facility] Administration Miscellaneous 1 each 12/08/17 22:00 12/10/17 22:25 Lidoderm Patch Removal MC 1 each DAILY@2200 [facility] Administration Multivitamins 1 each 12/08/17 10:00 12/11/17 10:12 Total B With C - PO 1 each DAILY [facility] Administration Impression: Breast ca Bone Mets Leucocytosis Anemia Thrombocytopenia DVT prophylaxis HBP Plan Bone scan Change in A.M. to p.o. decadron and then taper. Neurology f/u.
--- NOTE | 2017-12-11 21:02 | CONSULT ---
Consult - text type - Consultation Consultation Note: NEUROLOGY SECOND OPINION is greatly appreciated: Complex events reviewed. Dr. Veloz's detailed consultation is read and greatly appreciated. All MRI studies reviewed. 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 2013 abdominal obstruction, s/p colectomy and ileostomy. Ureteral obstruction presenting with renal failure improved after titanium stents. Known spinal mets x last few years without LE weakness. 1 year of Taxol in the past. Most recently on Gemzar, decadron and Neulasta. Now admitted after few weeks of gradual deterioration in gait, with numbness and weakness in the right leg, requiring walker this week. MRI's of Cervical, thoracic and LS spine all reviewed. Multiple levels of vertebral and posterior element metastases without epidural extension or cord compression. MCV's > 110 but [id number] Pt notes improvement on IV Decadron. EXAM: Normal neck ROM. No spinal palpation tenderness. Neg SLR. - Patricks. NEURO: MS/speech: Normal CN II-XII: Normal Motor: No drift. Min rhythmic tremor on the right. Min cogwheeling on the right with reinforcement. Good ALISA;s. Normal strength to FMT. Normal reflexes at the arms and knees. Absent AJ's. Right Babinski. Coord: No FTN dystaxia Sensory: Decreased vib to ankles, B/L Gait: Gets OOB without asymmetry. Elevates on heals/toes with support. Shuffling, shortened strides (symmetrical). IMP: 1. 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 Mild extrapyramidal findings on the right side (and Right Babinski). 3. No convincing clinical or radiographical evidence of myelopathy. SUGGEST: MRI of brain. Continue decadron. Drs. Cordoba and Roselia will monitor improvement. EMG/NCV of legs Thank you for allowing me to participate in this fascinating case. Bassam Mason MD
[2017-12-11] MEDS: LIDOCAINE PATCH REMOVAL MC SCH (22:10)
[2017-12-12] MEDS: DEXAMETHASONE SOD PHOSPHATE 4 MG/1 ML VIAL IVPUSH SCH ×3 (02:57→16:11)
[2017-12-12 09:08] LABS: HEMATOCRIT 25.2 % (32.4-45.2); HEMOGLOBIN 8.5 GM/dL (10.7-15.3); MCH 37.6 pg (25.7-33.7); MCHC 33.7 g/dl (32.0-36.0); MEAN CELL VOLUME 111.8 fl (80-96); MEAN PLT VOLUME 8.6 fl (7.5-11.1); PLATELET COUNT 130 K/MM3 (134-434); RBC 2.26 M/mm3 (3.60-5.2); RDW 20.7 % (11.6-15.6)
[2017-12-12 09:25] LABS: ANION GAP 8 (8-16); BLOOD UREA NITROGEN 32 mg/dL (7-18); CALCIUM 8.2 mg/dL (8.5-10.1); CHLORIDE 109 mmol/L (98-107); CO2 23 mmol/L (21-32); CREATININE 1.4 mg/dL (0.55-1.02); GLUCOSE,RANDOM 127 mg/dL (74-106); POTASSIUM 4.5 mmol/L (3.5-5.1); SODIUM 140 mmol/L (136-145); WHITE BLOOD COUNT 39.1 K/mm3 (4.0-10.0)
[2017-12-12] MEDS ORDERED: PT OWN MED DRAWER 7, Y5N ONE (09:49)
[2017-12-12] MEDS: LIDOCAINE 5% TOPICAL PATCH TP SCH (09:50)
[2017-12-12] MEDS: MAGNESIUM OXIDE 400 MG TABLET (FP) PO SCH (09:50)
[2017-12-12] MEDS: CALCIUM 500MG/VIT-D 200 UNITS COMBO TABLET (FP) PO SCH (09:50)
[2017-12-12] MEDS: amLODIPine BESYLATE 5 MG TABLET (FP) PO SCH (09:50)
[2017-12-12] MEDS: VITAMIN B COMPLEX W/C COMBO TABLET (FP) PO SCH (09:50)
[2017-12-12] MEDS: CHOLECALCIFEROL (VITAMIN D3) 1,000 UNIT TABLET (FP) PO SCH (09:50)
[2017-12-12] MEDS: HEPARIN NA (PORCINE) 5,000 UNITS/ML 1ML VIAL SQ SCH (09:51)
--- NOTE | 2017-12-12 15:28 | PN ---
Physical Exam: SUBJECTIVE: Patient seen and examined at bedside. Patient states leg pain greatly improved. No new complaints, no events overnight. OBJECTIVE: Vital Signs Period Temp Pulse Resp BP Sys/Avila Pulse Ox Last 24 Hr 98.1 F-98.3 F 80-84 20-20 148-160/84-94 97 GENERAL: The patient is awake, alert, and fully oriented, in no acute distress. HEAD: Normal with no signs of trauma. NECK: Trachea midline, full range of motion, supple. LUNGS: Breath sounds equal, clear to auscultation bilaterally, no wheezes, no crackles, no accessory muscle use. HEART: Regular rate and rhythm, S1, S2 without murmur, rub or gallop. ABDOMEN: Soft, nontender, nondistended, normoactive bowel sounds, no guarding, no rebound, no hepatosplenomegaly, no masses. EXTREMITIES: 2+ pulses, warm, well-perfused, no edema. NEUROLOGICAL: Cranial nerves II through X grossly intact. Normal speech, gait not observed. PSYCH: Normal mood, normal affect. SKIN: Warm, dry, normal turgor, no rashes or lesions noted Laboratory Results - last 24 hr 12/12/17 12/12/17 07:30 07:30 WBC 39.1 H* RBC 2.26 L Hgb 8.5 L D Hct 25.2 L MCV 111.8 H MCH 37.6 H MCHC 33.7 RDW 20.7 H Plt Count 130 L MPV 8.6 Sodium 140 Potassium 4.5 Chloride 109 H Carbon Dioxide 23 Anion Gap 8 BUN 32 H Creatinine 1.4 H Random Glucose 127 H Calcium 8.2 L Active Medications Generic Name Dose Route Start Last Admin Trade Name Freq PRN Reason Stop Dose Admin Amlodipine Besylate 5 mg 12/12/17 10:12/12/17 09:50 Norvasc - PO 5 mg DAILY [facility] Administration Calcium Carbonate/Cholecalciferol 1 tab 12/08/17 10:00 12/12/17 09:50 Os-Meño 500+D - PO 1 tab DAILY [facility] Administration Cholecalciferol 3,000 unit 12/08/17 10:00 12/12/17 09:50 Vitamin D3 - PO 3,000 unit DAILY [facility] Administration Dexamethasone Sodium Phosphate 4 mg 12/10/17 15:00 12/12/17 09:51 Decadron Injection - IVPUSH 4 mg Q6H-IV [facility] Administration Heparin Sodium (Porcine) 5,000 unit 12/07/17 22:00 12/12/17 09:51 Heparin - SQ 5,000 unit BID [facility] Administration Sodium Chloride 1,000 mls @ 75 mls/hr 12/08/17 18:00 12/11/17 22:26 Normal Saline - IV 75 mls/hr ASDIR [facility] Administration Lidocaine 1 patch 12/08/17 18:45 12/12/17 09:50 Lidoderm Patch - TP 1 patch DAILY [facility] Administration Magnesium Oxide 400 mg 12/08/17 10:00 12/12/17 09:50 Mag-Ox - PO 400 mg DAILY [facility] Administration Miscellaneous 1 each 12/08/17 22:00 12/11/17 22:10 Lidoderm Patch Removal MC 1 each DAILY@2200 [facility] Administration Multivitamins 1 each 12/08/17 10:00 12/12/17 09:50 Total B With C - PO 1 each DAILY [facility] Administration ASSESSMENT/PLAN: This is a 71 year old woman with PMH metastatic breast cancer admitted for leukocytosis in the setting of immunocompromised state. #Low back and right hip pain with associated stiffness -per pt, lidocaine patch very effective; will continue -MRI of spine shows areas of sponsylethesis as well as mild nerve compression and bony mets. -No evidence of cord compression on MRI. -neuro consult changed to Dr. Mason; recommends MRI brain and possible EMG #Leukocytosis w/ neutrophillia liv 2/2 neulasta and steroid use -WBC bump correlates with implementation of decadron -will trend #Stage 3 CKD -monitor creatinine( 1.4 -> 1.5 -> 1.3 -> 1.5) -avoid nephrotoxic agents #Metastatic Breast cancer with bony disease -On Gemcitibine -continued chemo and mgmt per heme onc -Heme-onc will conduct bone scan; f/u results and recs #Anemia of chronic disease -monitor Hb #FEN -no indication for fluids -monitor lytes -renal diet #Prophylaxis -Hep Sq 5ku BID #Dispo -admit to inpatient med surg Visit type - Emergency Visit Emergency Visit: Yes ED Registration Date: 12/07/17 Care time: The patient presented to the Emergency Department on the above date and was hospitalized for further evaluation of their emergent condition. - New Patient This patient is new to me today: No - Critical Care Critical Care patient: No
[2017-12-12] MEDS: DEXAMETHASONE 4 MG TABLET (FP) PO SCH (18:08)
--- NOTE | 2017-12-12 18:24 | PN ---
Teaching Attending Note Name of Resident: Enrique Avila ATTENDING PHYSICIAN STATEMENT I saw and evaluated the patient. I reviewed the resident's note and discussed the case with the resident. I agree with the resident's findings and plan as documented. SUBJECTIVE: no fever or chills , was able to walk today. pain in back and R hip improved. no SOB or RHOADES . no urinary or fecal incontinence OBJECTIVE: NAD , pleasant and cooperative CVL RRR. no JVD Lungs: CTAB Ext: no edema on LE . RUE edema MS: R mastectomy . NEuro : no facial droop, EOMI, round equal pupils , nl facial sensation . tongue at mid line . strength 5/5 in uper extremities proximally and distally 5/5 in LE proximally and distally. 1+ knee jerk and biceps reflexes b/l ASSESSMENT AND PLAN: Unfortunate pleasant lady with h/o metastatic Breast cancer s/p Mastectomy, radiation and currrent chemo, hydro s/p ureteral stents, colon resection and other medical problems who presented with lower back pain and inability to ambulate with R hip pain. 1- Low back pain , with inability to ambulate . hip with no mets on simple xray ( report pending). MRI of C/T/L spine reviewed, diffuse mets with disk bulge in L spine with canal stenosis Bone scan reviewed, spine mets and stable R SI joint - d/w Dr. Godinez the possibility of radiation . Recs to follow - Sx have improved - cont lidocaine patch and PT - cont decardron, switch to po 2- leukocytosis : likely due to neulasta and now steroids . no evidence of Infection monitor 3- Met cancer , as above .current chemo ? radiation dispo: cont to monitor
--- NOTE | 2017-12-12 18:29 | PN ---
Progress Note (short form) - Note Progress Note: Patient seen and examined pain is improved. participating in PT. Last Vital Signs Temp Pulse Resp BP Pulse Ox 98.3 F 80 19 152/94 98 12/12/17 14:02 12/12/17 14:02 12/12/17 09:00 12/12/17 14:02 12/12/17 09:00 CBC, BMP 12/12/17 07:30 12/12/17 07:30 Current Medications Generic Name Dose Route Start Last Admin Trade Name Luz PRN Reason Stop Dose Admin Amlodipine Besylate 5 mg 12/12/17 10:00 12/12/17 09:50 Norvasc - PO 5 mg DAILY [facility] Administration Calcium Carbonate/Cholecalciferol 1 tab 12/08/17 10:00 12/12/17 09:50 Os-Meño 500+D - PO 1 tab DAILY [facility] Administration Cholecalciferol 3,000 unit 12/08/17 10:00 12/12/17 09:50 Vitamin D3 - PO 3,000 unit DAILY [facility] Administration Dexamethasone 4 mg 12/12/17 18:00 12/12/17 18:08 Decadron - PO 4 mg Q6HPO [facility] Administration Heparin Sodium (Porcine) 5,000 unit 12/07/17 22:00 12/12/17 09:51 Heparin - SQ 5,000 unit BID [facility] Administration Lidocaine 1 patch 12/08/17 18:45 12/12/17 09:50 Lidoderm Patch - TP 1 patch DAILY [facility] Administration Magnesium Oxide 400 mg 12/08/17 10:00 12/12/17 09:50 Mag-Ox - PO 400 mg DAILY [facility] Administration Miscellaneous 1 each 12/08/17 22:00 12/11/17 22:10 Lidoderm Patch Removal MC 1 each DAILY@2200 [facility] Administration Multivitamins 1 each 12/08/17 10:00 12/12/17 09:50 Total B With C - PO 1 each DAILY [facility] Administration HEENT: PAT, EOM Intact Oropharynx: No thrush, No mucositis Breasts:s/p right mastectomy , telangiectasia chest wall ; left breast without masses Cor: RSR, No murmurs, No gallops Lungs: Clear to P&A Abd: Soft, Normal bowel sounds, No organomegaly Ext:No significant edema Skin: No rashes, Integument intact Impression: Breast ca Bone Mets Leucocytosis--steroid induced Anemia Thrombocytopenia DVT prophylaxis HBP Plan Bone scan--reviewed ( improvement ) noted continue with dex 4mg PO q6h PPI ppx to be added for MRI brain
[2017-12-12] MEDS: LIDOCAINE PATCH REMOVAL MC SCH (22:35)
[2017-12-13] MEDS: DEXAMETHASONE 4 MG TABLET (FP) PO SCH ×2 (00:35→06:10)
[2017-12-13] MEDS ORDERED: ENOXAPARIN NA (PORCINE) 40 MG/0.4 ML DISP.SYRIN SQ SCH (10:00)
[2017-12-13] MEDS: MAGNESIUM OXIDE 400 MG TABLET (FP) PO SCH (10:10)
[2017-12-13] MEDS: CHOLECALCIFEROL (VITAMIN D3) 1,000 UNIT TABLET (FP) PO SCH (10:10)
[2017-12-13] MEDS: CALCIUM 500MG/VIT-D 200 UNITS COMBO TABLET (FP) PO SCH (10:10)
[2017-12-13] MEDS: LIDOCAINE 5% TOPICAL PATCH TP SCH (10:10)
[2017-12-13] MEDS: amLODIPine BESYLATE 5 MG TABLET (FP) PO SCH (10:12)
[2017-12-13 10:18] LABS: HEMATOCRIT 26.4 % (32.4-45.2); HEMOGLOBIN 8.7 GM/dL (10.7-15.3); MCH 37.7 pg (25.7-33.7); MCHC 33.2 g/dl (32.0-36.0); MEAN CELL VOLUME 113.6 fl (80-96); MEAN PLT VOLUME 8.1 fl (7.5-11.1); PLATELET COUNT 149 K/MM3 (134-434); RBC 2.32 M/mm3 (3.60-5.2); RDW 22.1 % (11.6-15.6)
[2017-12-13 10:23] LABS: WHITE BLOOD COUNT 32.5 K/mm3 (4.0-10.0)
[2017-12-13 10:38] LABS: ANION GAP 8 (8-16); BLOOD UREA NITROGEN 39 mg/dL (7-18); CHLORIDE 106 mmol/L (98-107); CO2 23 mmol/L (21-32); CREATININE 1.5 mg/dL (0.55-1.02); GLUCOSE,RANDOM 143 mg/dL (74-106); POTASSIUM 4.1 mmol/L (3.5-5.1); SODIUM 137 mmol/L (136-145)
--- NOTE | 2017-12-13 11:51 | PN ---
Teaching Attending Note Name of Resident: Enrique Avila ATTENDING PHYSICIAN STATEMENT I saw and evaluated the patient. I reviewed the resident's note and discussed the case with the resident. I agree with the resident's findings and plan as documented. SUBJECTIVE: no fever or chills , no abd pain . back pain has improved , was able to ambulate with PT. no RHOADES or visual changes, no urinary incontinence OBJECTIVE: NAD , pleasant and cooperative CVL RRR. no JVD Lungs: CTAB Ext: no edema on LE . RUE edema MS: R mastectomy . Abd: soft, NT, ND , abd wall scars, R colostomy bag with brown stool . ND , NT . NL BS NEuro : no facial droop, EOMI, round equal pupils , nl facial sensation . tongue at mid line . strength 5/5 in upper extremities proximally and distally 5/5 in LE proximally and distally. 1+ knee jerk and biceps reflexes b/l ASSESSMENT AND PLAN: Unfortunate pleasant lady with h/o metastatic Breast cancer s/p Mastectomy, radiation and current chemo, hydro s/p ureteral stents, colon resection and other medical problems who presented with lower back pain and inability to ambulate with R hip pain. 1- Low back pain, with inability to ambulate. now improved with steroids . Bone scan indicates improved disease case d/w Dr. Godinez, radiation to be d/w pt further as out pt ( she is resistant now ) -cont pT - cont lidocaine patch as out pt - cont decardron slow taper as out pt 2- leukocytosis : likely due to neulasta and now steroids . no evidence of Infection monitor off ABx 3- Met cancer . MRI of brain with no mets cont chemo as out pt , radiation as above dispo : dc home with PT today.
--- NOTE | 2017-12-13 13:53 | PN ---
Progress Note (short form) - Note Progress Note: Patient seen and examined she feels much better and she is now able to walk Last Vital Signs Temp Pulse Resp BP Pulse Ox 99 F 76 18 150/90 98 12/13/17 10:00 12/13/17 10:00 12/13/17 10:00 12/13/17 10:00 12/12/17 20:39 CBC, BMP 12/13/17 09:50 12/13/17 09:50 Current Medications Generic Name Dose Route Start Last Admin Trade Name Freq PRN Reason Stop Dose Admin Amlodipine Besylate 5 mg 12/12/17 10:00 12/13/17 10:12 Norvasc - PO 5 mg DAILY TRICIA Administration Calcium Carbonate/Cholecalciferol 1 tab 12/08/17 10:00 12/13/17 10:10 Os-Meño 500+D - PO 1 tab DAILY TRICIA Administration Cholecalciferol 3,000 unit 12/08/17 10:00 12/13/17 10:10 Vitamin D3 - PO 3,000 unit DAILY TRICIA Administration Dexamethasone 4 mg 12/12/17 18:00 12/13/17 06:10 Decadron - PO 4 mg Q6HPO TRICIA Administration Enoxaparin Sodium 40 mg 12/13/17 10:00 12/13/17 10:12 Lovenox - SQ 40 mg DAILY TRICIA Administration Lidocaine 1 patch 12/08/17 18:45 12/13/17 10:10 Lidoderm Patch - TP 1 patch DAILY TRICIA Administration Magnesium Oxide 400 mg 12/08/17 10:00 12/13/17 10:10 Mag-Ox - PO 400 mg DAILY TRICIA Administration Miscellaneous 1 each 12/08/17 22:00 12/12/17 22:35 Lidoderm Patch Removal MC 1 each DAILY@2200 TRICIA Administration Multivitamins 1 each 12/08/17 10:00 12/12/17 09:50 Total B With C - PO 1 each DAILY TRICIA Administration HEENT: PAT, EOM Intact Oropharynx: No thrush, No mucositis Breasts:s/p right mastectomy , telangiectasia chest wall ; left breast without masses Cor: RSR, No murmurs, No gallops Lungs: Clear to P&A Abd: Soft, Normal bowel sounds, No organomegaly Ext:No significant edema Skin: No rashes, Integument intact Impression: Breast ca Bone Mets Leucocytosis--steroid induced Anemia Thrombocytopenia DVT prophylaxis HBP Plan MRI/Bone scan with some improvement in ovrall disease, pt mentioned she will think of RT at a later time continue with dex 4mg PO q6h PPI ppx for OP f/u home with PT services
[2017-12-13 15:12] VITALS: BP 128/78; PULSE 83; TEMP 97.8
--- NOTE | 2017-12-13 22:13 | DS ---
Physical Exam: SUBJECTIVE: Patient seen and examined at bedside. No new complaints. Legs feel better today. OBJECTIVE: Vital Signs Period Temp Pulse Resp BP Sys/Avila Pulse Ox Last 24 Hr 97.6 F-99 F 76-83 18-20 128-150/73-90 PHYSICAL EXAM GENERAL: The patient is awake, alert, and fully oriented, in no acute distress. HEAD: Normal with no signs of trauma. NECK: Trachea midline, full range of motion, supple. LUNGS: Breath sounds equal, clear to auscultation bilaterally, no wheezes, no crackles, no accessory muscle use. HEART: Regular rate and rhythm, S1, S2 without murmur, rub or gallop. ABDOMEN: Soft, nontender, nondistended, normoactive bowel sounds, no guarding, no rebound, no hepatosplenomegaly, no masses. EXTREMITIES: 2+ pulses, warm, well-perfused, no edema. NEUROLOGICAL: Cranial nerves II through X grossly intact. Normal speech, gait not observed. PSYCH: Normal mood, normal affect. SKIN: Warm, dry, normal turgor, no rashes or lesions noted LABS Laboratory Results - last 24 hr 12/13/17 12/13/17 09:50 09:50 WBC 32.5 H* RBC 2.32 L Hgb 8.7 L Hct 26.4 L MCV 113.6 H MCH 37.7 H MCHC 33.2 RDW 22.1 H Plt Count 149 MPV 8.1 Sodium 137 Potassium 4.1 Chloride 106 Carbon Dioxide 23 Anion Gap 8 BUN 39 H Creatinine 1.5 H Random Glucose 143 H Calcium 8.0 L HOSPITAL COURSE: Date of Admission:12/07/17 The patient is a 71 yo f w/PMH metastatic breast cancer(dx 2008) s/p mastectomy/ RTX/currently on chemo with Gemzar(last dose on sunday 12/03) who presented to ED c/o 3 days of worsening right hip pain and stiffness as well as difficulty ambulating. She had received her 8th dose of Gemzar the Sunday prior to admission. In the ED, she was found to have a leukocytosis to 24.2, but remained afebrile. Her oncologist, Dr. Edward, was contacted by the ED staff and he recommended admission for IV ABX as this was not the patient's usual response to chemo. The patient was admitted for this reason as well as further workup of her acute and worsening back pain. Neurology was consulted. ID was consulted. Hemotology-oncology was consulted. The patient was treated with zosyn, ceftriaxone, phenergan and normal saline. The patient's leukocytosis was attributed to her home nulasta use and began to trend down. A plain XR of the lumbar spine was negative for acute disease. MRIs of the cervical, thoracic and lumbar spine showed previously present spinal met as well as degenerative changes as well as spondylosis and bulging discs causing impingement on nearby nerve roots. There was no evidence of spinal cord compression. The patient was treated with PO steroids and a lidocaine patch which gave the patient great relief. The patient's WBC counts greatly increased after starting steroids. AN MRI of the Brain was negative for mets. A Bone scan showed interval improvement of metastases, indicating response to treatment. The patient continued to improve daily and was able to walk well with assistance of physical therapy. The patient was discharged home with a prescription for Dexamethisone 4mg Q6H for 2 weeks as well as lidocaine patches, a PPI to prevent ulcers while on steriods and amlodipine 5mg daily to control her blood pressure while on steroids. The patient was instructed to follow up with both her PCP and her oncologist within one week for further management of these medications. The was also instructed to repeat her blood work in a week to monitor the development Date of Discharge: 12/13/17 Minutes to complete discharge: 68 Discharge Summary Reason For Visit: LEUKOCYTOSIS Condition: Improved - Instructions Diet, Activity, Other Instructions: You were admitted to the hospital for the treatment of your high white blood cells as well as your hip and leg pain. We are sending you home with some new medications. The first medication is for your blood pressure and is called Norvasc. You should take 5mg of this medication once per day. The second medication is a Lidocaine patch for your back pain. You should apply one patch to your back per day. Please change it daily. Do NOT apply more than 1 patch at a time. The third medication is a steroid to help decrease the inflammation in the nerves of your spine. It is called decadron. You should take 4 mg of this medication 4 times per day. We have given you 2 week's worth, so please follow up with Dr. Edward before then, as the taper will continue and it is dangerous to stop abruptly You should take an antacid while on steroids. We have prescribed 40mg of Protonix daily for 2 weeks. You should resume taking the rest of your home mediations as prescribed. You will need an additional blood test one week after discharge home in order to check on your white blood cell counts. Your doctor can give you a prescription for this test. You should follow up with your primary care physician within one week of discharge home. Information for Dr. Le has been included in your discharge paperwork. Please call to make an appointment. You should also follow up with your oncologist within one week of discharge home. Information for Dr. Edward has been included in your discharge paperwork. Please call to make an appointment. If you begin to experience chest pain, shortness of breath, worsening leg pain, worsening leg stiffness or incontinence, please call your doctor or return to the emergency department. Referrals: Andrés Richards MD [Primary Care Provider] - Hitesh Edward MD [Staff Physician] - Disposition: VNS/HOME HEALTH CARE - Home Medications Comprehensive Discharge Medication List: Ambulatory Orders Calcium Citrate/Magnesium/D3 [Calcium Citrate Chewable Wafer] 1 each PO DAILY Cholecalciferol (Vitamin D3) [Vitamin D3] 3,000 unit PO DAILY 05/08/17 Magnesium Citrate 400 mg PO DAILY 05/08/17 Vitamin B Complex 1 each PO DAILY 05/08/17 Amlodipine Besylate [Norvasc -] 5 mg PO DAILY #30 tablet 12/13/17 Dexamethasone [Decadron -] 4 mg PO Q6HPO #56 tablet 12/13/17 Lidocaine 5% Patch [Lidoderm -] 1 patch TP DAILY #7 patch 12/13/17 Pantoprazole Sodium [Protonix -] 40 mg PO DAILY #14 tablet.ec 12/13/17 This patient is new to me today: No Emergency Visit: Yes ED Registration Date: 12/07/17 Care time: The patient presented to the Emergency Department on the above date and was hospitalized for further evaluation of their emergent condition. Critical Care patient: No - Discharge Referral Referred to [facility] Med P.C.: No
== END 2017-12-13 17:58 | disposition home health service (06) | DRG 815 ==
LOC: JER 13:43 → JERBED 19:36 → J6S 12-08 00:34
PROVIDERS: ADMIT Internal Medicine; ATTEND Internal Medicine
DX: D72.829 Elevated white blood cell count, unspecified (principal); C79.51 Secondary malignant neoplasm of bone; N13.30 Unspecified hydronephrosis; C78.5 Secondary malignant neoplasm of large intestine and rectum; T45.1X5A Adverse effect of antineoplastic and immunosuppressive drugs, initial encounter; C50.919 Malignant neoplasm of unspecified site of unspecified female breast; Z85.3 Personal history of malignant neoplasm of breast; N18.3 Chronic kidney disease, stage 3 (moderate); Z90.49 Acquired absence of other specified parts of digestive tract; D71 Functional disorders of polymorphonuclear neutrophils; E83.39 Other disorders of phosphorus metabolism; D63.8 Anemia in other chronic diseases classified elsewhere; G62.9 Polyneuropathy, unspecified; E66.9 Obesity, unspecified; Z68.32 Body mass index [BMI] 32.0-32.9, adult; D69.6 Thrombocytopenia, unspecified; M25.551 Pain in right hip; D50.0 Iron deficiency anemia secondary to blood loss (chronic); M48.07 Spinal stenosis, lumbosacral region; M48.02 Spinal stenosis, cervical region; M48.05 Spinal stenosis, thoracolumbar region; G62.0 Drug-induced polyneuropathy; T45.8X5A Adverse effect of other primarily systemic and hematological agents, initial encounter
CPT/HCPCS: 36415; 70551-TC; 72100-TC-FY; 72141-TC; 72146-TC; 72148-TC; 73552-TC-RT-FY; 78306-TC; 80048; 80053; 81003; 81015; 82607; 83036; 83605; 83735; 84100; 84443; 85025; 85027; 85610; 85730; 87040; 87086; 93005; 93010; 93970-TC; 97116-GP; 97161-GP; 99285-25; A9503; J1100; J1644; J7030

== ENCOUNTER 2017-12-17 07:44 | Day surgery (SDC) | payer OTHER ==
[2017-12-17] MEDS ORDERED: SODIUM CHLORIDE 250 ML IV ONE ×2 (09:00→11:00)
[2017-12-17 10:00] LABS: HEMATOCRIT 31.8 % (32.4-45.2); HEMOGLOBIN 10.5 GM/dL (10.7-15.3); MCH 37.7 pg (25.7-33.7); MCHC 33.1 g/dl (32.0-36.0); MEAN CELL VOLUME 113.8 fl (80-96); MEAN PLT VOLUME 7.4 fl (7.5-11.1); PLATELET COUNT 476 K/MM3 (134-434); RDW 21.9 % (11.6-15.6)
[2017-12-17] MEDS ORDERED: DEXAMETHASONE INJECTION 10 MG, ONDANSETRON INJECTION 12 MG in SODIUM CHLORIDE 100 ML IVPB ONE (10:00)
[2017-12-17 10:20] LABS: ALBUMIN 3.3 g/dl (3.4-5.0); ANION GAP 6 (8-16); BILIRUBIN,DIRECT < 0.2 mg/dL (0.0-0.2); BILIRUBIN,TOTAL 0.5 mg/dL (0.2-1.0); BLOOD UREA NITROGEN 31 mg/dL (7-18); CALCIUM 8.3 mg/dL (8.5-10.1); CHLORIDE 102 mmol/L (98-107); CO2 25 mmol/L (21-32); CREATININE 1.5 mg/dL (0.55-1.02); GLUCOSE,RANDOM 142 mg/dL (74-106); MAGNESIUM 2.2 mg/dL (1.8-2.4); SGOT/AST 26 U/L (15-37); SGPT/ALT 23 U/L (12-78); SODIUM 133 mmol/L (136-145); TOT PROT 6.3 g/dl (6.4-8.2)
[2017-12-17 10:21] LABS: ALK PHOS 168 U/L (45-117)
[2017-12-17] MEDS ORDERED: GEMCITABINE HCL 1,482 MG in SODIUM CHLORIDE 250 ML IV ONE (10:30)
[2017-12-17 10:46] LABS: ANISOCYTOSIS 2+; MACROCYTOSIS 2+; OVALOCYTE 1+; PLATELET ESTIMATE INCREASED
[2017-12-17] MEDS ORDERED: PORTA CATH FLUSH 10 ML IVPUSH ONE (15:30)
[2017-12-17 15:38] VITALS: TEMP 97.6
[2017-12-17 15:43] VITALS: BP 152/91; PULSE 88
== END 2017-12-17 15:35 | disposition home or self-care (01) ==
LOC: JONCCHEMO 07:44 → J7W 10:47 → JONCCHEMO 15:35
PROVIDERS: ATTEND Internal Medicine Hematology & Oncology
DX: Z51.11 Encounter for antineoplastic chemotherapy (principal); C50.811 Malignant neoplasm of overlapping sites of right female breast; C79.51 Secondary malignant neoplasm of bone; D70.1 Agranulocytosis secondary to cancer chemotherapy
CPT/HCPCS: 36415; 80053; 80076; 83735; 85025; 96361; 96367; 96375; 96413; J1100

== ENCOUNTER 2017-12-24 07:42 | Day surgery (SDC) | payer OTHER ==
[2017-12-24] MEDS ORDERED: SODIUM CHLORIDE 250 ML IV ONE ×2 (09:00→11:00)
[2017-12-24] MEDS ORDERED: DEXAMETHASONE INJECTION 10 MG, ONDANSETRON INJECTION 12 MG in SODIUM CHLORIDE 100 ML IVPB ONE (10:00)
[2017-12-24] MEDS ORDERED: GEMCITABINE HCL 1,482 MG in SODIUM CHLORIDE 250 ML IV ONE (10:30)
[2017-12-24 12:40] LABS: BASO % 0.2 % (0-2.0); EOS % 1.2 % (0-4.5); HEMATOCRIT 28.2 % (32.4-45.2); HEMOGLOBIN 9.8 GM/dL (10.7-15.3); LYMPH % 6.7 % (8-40); MCH 38.8 pg (25.7-33.7); MCHC 34.6 g/dl (32.0-36.0); MEAN PLT VOLUME 6.8 fl (7.5-11.1); MONO % 9.3 % (3.8-10.2); NEUT % 82.6 % (42.8-82.8); PLATELET COUNT 253 K/MM3 (134-434); RBC 2.52 M/mm3 (3.60-5.2); RDW 20.1 % (11.6-15.6)
[2017-12-24 14:19] LABS: ALBUMIN 3.3 g/dl (3.4-5.0); ALK PHOS 112 U/L (45-117); ANION GAP 6 (8-16); BILIRUBIN,DIRECT < 0.2 mg/dL (0.0-0.2); BILIRUBIN,TOTAL 0.4 mg/dL (0.2-1.0); BLOOD UREA NITROGEN 20 mg/dL (7-18); CALCIUM 8.3 mg/dL (8.5-10.1); CHLORIDE 101 mmol/L (98-107); CO2 29 mmol/L (21-32); CREATININE 1.4 mg/dL (0.55-1.02); GLUCOSE,RANDOM 108 mg/dL (74-106); POTASSIUM 3.8 mmol/L (3.5-5.1); SGOT/AST 29 U/L (15-37); SGPT/ALT 23 U/L (12-78); SODIUM 136 mmol/L (136-145); TOT PROT 5.9 g/dl (6.4-8.2)
[2017-12-24 15:53] VITALS: TEMP 98.3
[2017-12-24] MEDS ORDERED: PORTA CATH FLUSH 10 ML IVPUSH ONE (16:00)
[2017-12-24 18:03] VITALS: BP 133/66; PULSE 55
== END 2017-12-24 16:55 | disposition home or self-care (01) ==
LOC: JONCCHEMO 07:42 → J7W 11:52 → JONCCHEMO 16:55
PROVIDERS: ATTEND Internal Medicine Hematology & Oncology
DX: Z51.11 Encounter for antineoplastic chemotherapy (principal); C50.811 Malignant neoplasm of overlapping sites of right female breast; C79.51 Secondary malignant neoplasm of bone; D70.1 Agranulocytosis secondary to cancer chemotherapy
CPT/HCPCS: 36415; 80048; 80076; 83735; 85025; 96361; 96367; 96375; 96413; J1100

== ENCOUNTER 2017-12-25 07:23 | Day surgery (SDC) | payer OTHER ==
[2017-12-25] MEDS ORDERED: PEGFILGRASTIM 6 MG/0.6 ML DISP.SYRIN SQ ONE (10:00)
[2017-12-25 18:09] VITALS: BP 108/69; PULSE 58; TEMP 97.6
== END 2017-12-25 21:06 | disposition home or self-care (01) ==
LOC: JONCCHEMO 07:23 → J7W 11:16 → JONCCHEMO 21:06
PROVIDERS: ATTEND Internal Medicine Hematology & Oncology
PROC: 3E013GC Introduction of Other Therapeutic Substance into Subcutaneous Tissue, Percutaneous Approach (ICD-10-PCS; principal; 2017-12-25)
DX: C50.811 Malignant neoplasm of overlapping sites of right female breast (principal); C79.51 Secondary malignant neoplasm of bone; D70.1 Agranulocytosis secondary to cancer chemotherapy; Z76.89 Persons encountering health services in other specified circumstances
CPT/HCPCS: 96372; J2505

== ENCOUNTER 2018-01-16 08:46 | Day surgery (SDC) | payer OTHER ==
[2018-01-15 09:14] VITALS: BMI 29.6
[2018-01-16] MEDS ORDERED: PROPOFOL 20 ML ONE (11:00)
[2018-01-16] MEDS ORDERED: MIDAZOLAM HCL 2 MG/2 ML SINGLE DOSE VIAL ONE (11:00)
[2018-01-16] MEDS ORDERED: LIDOCAINE HCL/PF 2% SDV 5ML VIAL ONE (11:04)
[2018-01-16] MEDS ORDERED: ACETAMINOPHEN 1000 MG/100 ML VIAL (NON FORMULARY) IVPB ONE (11:06)
--- NOTE | 2018-01-16 11:06 | HP ---
History & Physical Update - History History: No Change - Physical Physical: No Change - Assessment Assessment: No Change - Plan Plan: No Change ( 01/15/18)
[2018-01-16] MEDS ORDERED: DEXAMETHASONE SOD PHOSPHATE 4 MG/1 ML VIAL ONE (11:11)
[2018-01-16] MEDS ORDERED: ceFAZolin SODIUM 1 GM VIAL IVPB ONE (11:11)
[2018-01-16] MEDS ORDERED: IBUPROFEN 800 MG/8 ML IJ IVPB SCH (11:15)
[2018-01-16] MEDS ORDERED: DEXTROSE 5%-0.45% SALINE 1,000 ML IV SCH (11:15)
[2018-01-16] MEDS ORDERED: SODIUM CHLORIDE 0.9% P/F 10 ML VIAL IJ ONE (11:16)
[2018-01-16] MEDS ORDERED: ceFAZolin SODIUM 1 GM VIAL ONE (11:16)
[2018-01-16] MEDS ORDERED: PROMETHAZINE HCL 25 MG/1 ML VIAL IVPUSH PRN (11:47)
[2018-01-16] MEDS ORDERED: ONDANSETRON 4 MG/2 ML VIAL IVPUSH PRN (11:47)
[2018-01-16] MEDS ORDERED: LACTATED RINGERS SOLUTION 1,000 ML IV SCH (12:00)
[2018-01-16] MEDS ORDERED: ACETAMINOPHEN INJECTION 100 ML IVPB ONE (12:03)
[2018-01-16 12:28] VITALS: TEMP 98
[2018-01-16 14:37] VITALS: BP 150/80; PULSE 80
--- NOTE | 2018-01-18 09:47 | OP ---
DATE OF OPERATION: 01/16/2018 PREOPERATIVE DIAGNOSIS: Bilateral hydronephrosis. POSTOPERATIVE DIAGNOSIS: Bilateral hydronephrosis. PROCEDURE: Bilateral ureteral stent exchange and retrograde pyelograms x2. SURGEON: Mariano Stein MD DRAINS: Metal ureteral stents. PREOPERATIVE INDICATIONS: The patient is a 72-year-old female with a history of cancer and bilateral ureteral obstructions. She requires lifelong stenting. She is tolerating very well metal stents, which have been lasting for 12 month at a time. She comes in today for change of stents. THE OPERATION: The patient went to the OR, placed on the table in the supine position, given general anesthesia, IV antibiotics, placed in the modified lithotomy position. The groin was prepped and draped sterilely. Cystoscopy was performed. The right ureteral stent was seen and was removed. The wire was passed just above the right kidney. Over that, an open-end catheter was placed, and retrograde pyelogram was performed to help better define the anatomy. A 6 x 24 metal stent was passed through the sheath and placed with one loop in the upper pole and one loop in the bladder. The left ureteral stent was then removed. A wire was passed above the left kidney. An open-end catheter was placed, and retrograde pyelogram was performed to define the anatomy. The metal stent was placed through the sheath, one loop in the upper pole and one loop was in the bladder. These positions confirmed on x-ray. The bladder was emptied. The patient was woken up. Jb [id number]
--- NOTE | 2018-01-18 17:41 | PATH ---
Surgical Pathology Report Patient Name: NAPOLEON LIEBERMAN Med. Rec. #: [id number] /Age/Gender: 1945 (Age: 72) / F Account: [id number] Location: [facility] Taken: 01/16/2018 Received: 01/16/2018 Reported: 01/18/2018 Physicians: Mariano Stein M.D. Specimen(s) Received RIGHT LEFT URETHRAL CATHETER Clinical History Status post stent bilateral hydronephrosis Final Diagnosis STENT, URETER, RIGHT AND LEFT, REMOVAL: URETERAL STENTS. MACROSCOPIC DIAGNOSIS. Electronically Signed Zeinab London M.D. Gross Description Received fresh labeled "stent from left, right ureter," are 2 suarez metallic, coiled portions of tubing, consistent with ureteral stents. The stents average 33 cm in length. No soft tissue is present. No sections are submitted, gross only. 01/17/2018 saudi01/17/2018
== END 2018-01-16 14:39 | disposition home or self-care (01) ==
LOC: JASU-SURG 08:46
PROVIDERS: ATTEND Urology
PROC: 0T9880Z Drainage of Bilateral Ureters with Drainage Device, Via Natural or Artificial Opening Endoscopic (ICD-10-PCS; principal; 2018-01-16 10:00)
PROC: 0TW Urinary System, Revision (ICD-10-PCS; 2018-01-16 10:00)
DX: N13.30 Unspecified hydronephrosis (principal)
CPT/HCPCS: 76000-TC-FY; 94760; J0131

== ENCOUNTER 2018-01-23 07:36 | Day surgery (SDC) | payer OTHER ==
[2018-01-23] MEDS ORDERED: SODIUM CHLORIDE 250 ML IV ONE ×2 (08:00→09:30)
[2018-01-23] MEDS ORDERED: DEXAMETHASONE INJECTION 10 MG, ONDANSETRON INJECTION 12 MG in SODIUM CHLORIDE 100 ML IVPB ONE (08:30)
[2018-01-23] MEDS ORDERED: GEMCITABINE HCL 1,482 MG in SODIUM CHLORIDE 250 ML IV ONE (09:00)
[2018-01-23 09:36] VITALS: TEMP 98.4
[2018-01-23 10:20] LABS: BASO % 1.2 % (0-2.0); EOS % 1.3 % (0-4.5); HEMATOCRIT 28.6 % (32.4-45.2); HEMOGLOBIN 9.8 GM/dL (10.7-15.3); LYMPH % 9.8 % (8-40); MCH 36.4 pg (25.7-33.7); MCHC 34.1 g/dl (32.0-36.0); MEAN PLT VOLUME 6.7 fl (7.5-11.1); MONO % 9.1 % (3.8-10.2); NEUT % 78.6 % (42.8-82.8); PLATELET COUNT 300 K/MM3 (134-434); RBC 2.68 M/mm3 (3.60-5.2); RDW 17.7 % (11.6-15.6); WHITE BLOOD COUNT 7.6 K/mm3 (4.0-10.0)
[2018-01-23 10:53] LABS: ALBUMIN 2.8 g/dl (3.4-5.0); ANION GAP 6 (8-16); BLOOD UREA NITROGEN 23 mg/dL (7-18); CALCIUM 8.3 mg/dL (8.5-10.1); CHLORIDE 102 mmol/L (98-107); CO2 26 mmol/L (21-32); GLUCOSE,RANDOM 84 mg/dL (74-106); SGOT/AST 28 U/L (15-37); SODIUM 134 mmol/L (136-145)
[2018-01-23 10:55] LABS: BILIRUBIN,DIRECT < 0.2 mg/dL (0.0-0.2)
[2018-01-23 10:56] LABS: ALK PHOS 95 U/L (45-117); BILIRUBIN,TOTAL 0.3 mg/dL (0.2-1.0); CREATININE 1.4 mg/dL (0.55-1.02); TOT PROT 6.1 g/dl (6.4-8.2)
[2018-01-23 11:43] LABS: ANISOCYTOSIS 0; PLATELET ESTIMATE NORMAL
[2018-01-23 12:04] LABS: SGPT/ALT 15 U/L (12-78)
[2018-01-23] MEDS ORDERED: PORTA CATH FLUSH 10 ML IVPUSH ONE (14:24)
[2018-01-23 14:33] VITALS: BP 152/86; PULSE 96
== END 2018-01-23 14:34 | disposition home or self-care (01) ==
LOC: JONCCHEMO 07:36 → J7W 11:01 → JONCCHEMO 14:34
PROVIDERS: ATTEND Internal Medicine Hematology & Oncology
PROC: 3E04305 Introduction of Other Antineoplastic into Central Vein, Percutaneous Approach (ICD-10-PCS; principal; 2018-01-23)
PROC: 3E043GC Introduction of Other Therapeutic Substance into Central Vein, Percutaneous Approach (ICD-10-PCS; 2018-01-23)
PROC: 3E0437Z Introduction of Electrolytic and Water Balance Substance into Central Vein, Percutaneous Approach (ICD-10-PCS; 2018-01-23)
DX: Z51.11 Encounter for antineoplastic chemotherapy (principal); C50.311 Malignant neoplasm of lower-inner quadrant of right female breast; C79.51 Secondary malignant neoplasm of bone; D70.1 Agranulocytosis secondary to cancer chemotherapy; Z17.0 Estrogen receptor positive status [ER+]
CPT/HCPCS: 36415; 80053; 80076; 83735; 85025; 96361; 96367; 96375; 96413; J1100; J2405

== ENCOUNTER 2018-01-31 07:17 | Day surgery (SDC) | payer OTHER ==
[2018-01-31] MEDS ORDERED: SODIUM CHLORIDE 250 ML IV ONE ×2 (08:00→09:30)
[2018-01-31] MEDS ORDERED: DEXAMETHASONE INJECTION 10 MG, ONDANSETRON INJECTION 12 MG in SODIUM CHLORIDE 100 ML IVPB ONE (08:30)
[2018-01-31] MEDS ORDERED: GEMCITABINE HCL 1,482 MG in SODIUM CHLORIDE 250 ML IV ONE (09:00)
[2018-01-31 10:04] LABS: BASO % 0.7 % (0-2.0); EOS % 3.8 % (0-4.5); HEMATOCRIT 29.4 % (32.4-45.2); LYMPH % 16.4 % (8-40); MCH 35.9 pg (25.7-33.7); MEAN CELL VOLUME 105.4 fl (80-96); MEAN PLT VOLUME 6.7 fl (7.5-11.1); MONO % 9.6 % (3.8-10.2); NEUT % 69.5 % (42.8-82.8); PLATELET COUNT 173 K/MM3 (134-434); RBC 2.79 M/mm3 (3.60-5.2); RDW 16.9 % (11.6-15.6); WHITE BLOOD COUNT 4.1 K/mm3 (4.0-10.0)
[2018-01-31] MEDS ORDERED: SODIUM CHLORIDE IV ONE ×2 (10:30→11:00)
[2018-01-31] MEDS ORDERED: GEMCITABINE HCL IV ONE ×2 (10:30→11:00)
[2018-01-31 10:34] LABS: ALBUMIN 3.1 g/dl (3.4-5.0); ANION GAP 9 (8-16); BLOOD UREA NITROGEN 22 mg/dL (7-18); CALCIUM 8.7 mg/dL (8.5-10.1); CHLORIDE 101 mmol/L (98-107); CO2 27 mmol/L (21-32); GLUCOSE,RANDOM 97 mg/dL (74-106); SODIUM 137 mmol/L (136-145)
[2018-01-31 10:36] LABS: ALK PHOS 109 U/L (45-117); BILIRUBIN,DIRECT < 0.2 mg/dL (0.0-0.2); BILIRUBIN,TOTAL 0.3 mg/dL (0.2-1.0); CREATININE 1.3 mg/dL (0.55-1.02); SGPT/ALT 21 U/L (12-78); TOT PROT 6.5 g/dl (6.4-8.2)
[2018-01-31 10:41] VITALS: TEMP 98.5
[2018-01-31 10:41] LABS: MAGNESIUM 1.9 mg/dL (1.8-2.4); POTASSIUM 4.4 mmol/L (3.5-5.1); SGOT/AST 43 U/L (15-37)
[2018-01-31 11:56] LABS: ANISOCYTOSIS 1+; MACROCYTOSIS 1+
[2018-01-31 16:39] VITALS: BP 159/96; PULSE 86
== END 2018-01-31 14:00 | disposition home or self-care (01) ==
LOC: JONCCHEMO 07:17 → J7W 10:31 → JONCCHEMO 14:00
PROVIDERS: ATTEND Internal Medicine Hematology & Oncology
PROC: 3E04305 Introduction of Other Antineoplastic into Central Vein, Percutaneous Approach (ICD-10-PCS; principal; 2018-01-31)
PROC: 3E043GC Introduction of Other Therapeutic Substance into Central Vein, Percutaneous Approach (ICD-10-PCS; 2018-01-31)
PROC: 3E0437Z Introduction of Electrolytic and Water Balance Substance into Central Vein, Percutaneous Approach (ICD-10-PCS; 2018-01-31)
DX: Z51.11 Encounter for antineoplastic chemotherapy (principal); C50.311 Malignant neoplasm of lower-inner quadrant of right female breast; C79.89 Secondary malignant neoplasm of other specified sites; D70.1 Agranulocytosis secondary to cancer chemotherapy; Z17.0 Estrogen receptor positive status [ER+]
CPT/HCPCS: 36415; 80048; 80076; 83735; 85025; 96361; 96367; 96375; 96413; J1100; J2405

== ENCOUNTER 2018-02-11 07:48 | Day surgery (SDC) | payer OTHER ==
[2018-02-11] MEDS ORDERED: SODIUM CHLORIDE 250 ML IV ONE ×2 (09:00→11:00)
[2018-02-11] MEDS ORDERED: DEXAMETHASONE INJECTION 10 MG, ONDANSETRON INJECTION 12 MG in SODIUM CHLORIDE 100 ML IVPB ONE (10:00)
[2018-02-11 10:17] LABS: BASO % 0.4 % (0-2.0); EOS % 1.2 % (0-4.5); HEMATOCRIT 30.3 % (32.4-45.2); HEMOGLOBIN 10.2 GM/dL (10.7-15.3); LYMPH % 8.7 % (8-40); MCH 35.6 pg (25.7-33.7); MCHC 33.6 g/dl (32.0-36.0); MEAN CELL VOLUME 105.9 fl (80-96); MEAN PLT VOLUME 8.2 fl (7.5-11.1); MONO % 6.9 % (3.8-10.2); NEUT % 82.8 % (42.8-82.8); PLATELET COUNT 229 K/MM3 (134-434); RBC 2.86 M/mm3 (3.60-5.2); RDW 17.9 % (11.6-15.6); WHITE BLOOD COUNT 9.8 K/mm3 (4.0-10.0)
[2018-02-11] MEDS ORDERED: GEMCITABINE HCL 1,482 MG in SODIUM CHLORIDE 250 ML IV ONE (10:30)
[2018-02-11 10:36] LABS: POTASSIUM 4.4 mmol/L (3.5-5.1)
[2018-02-11 11:23] VITALS: TEMP 98.1
[2018-02-11 11:23] LABS: ALBUMIN 3.2 g/dl (3.4-5.0); ANION GAP 7 (8-16); BILIRUBIN,DIRECT 0.2 mg/dL (0.0-0.2); BILIRUBIN,TOTAL 0.4 mg/dL (0.2-1.0); BLOOD UREA NITROGEN 25 mg/dL (7-18); CALCIUM 9.4 mg/dL (8.5-10.1); CHLORIDE 98 mmol/L (98-107); CO2 29 mmol/L (21-32); CREATININE 1.6 mg/dL (0.55-1.02); GLUCOSE,RANDOM 85 mg/dL (74-106); MAGNESIUM 2.1 mg/dL (1.8-2.4); SGOT/AST 37 U/L (15-37); SGPT/ALT 25 U/L (12-78); SODIUM 134 mmol/L (136-145); TOT PROT 6.4 g/dl (6.4-8.2)
[2018-02-11 11:24] LABS: ALK PHOS 116 U/L (45-117)
[2018-02-11] MEDS ORDERED: PORTA CATH FLUSH 10 ML IVPUSH ONE (16:58)
[2018-02-11 17:01] VITALS: BP 153/84; PULSE 87
== END 2018-02-11 16:55 | disposition home or self-care (01) ==
LOC: JONCCHEMO 07:48 → J7W 10:47 → JONCCHEMO 16:55
PROVIDERS: ATTEND Internal Medicine Hematology & Oncology
DX: Z51.11 Encounter for antineoplastic chemotherapy (principal); C50.311 Malignant neoplasm of lower-inner quadrant of right female breast; Z17.0 Estrogen receptor positive status [ER+]
CPT/HCPCS: 36415; 36598; 80053; 80076; 83735; 85025; 93971; 96361; 96367; 96375; 96413; J1100

== ENCOUNTER 2018-02-18 07:48 | Day surgery (SDC) | payer OTHER ==
[2018-02-18] MEDS ORDERED: SODIUM CHLORIDE 250 ML IV ONE ×2 (09:00→11:00)
[2018-02-18 09:09] VITALS: TEMP 98.2
[2018-02-18 09:24] LABS: BASO % 0.8 % (0-2.0); EOS % 0.5 % (0-4.5); HEMATOCRIT 28.3 % (32.4-45.2); HEMOGLOBIN 9.5 GM/dL (10.7-15.3); LYMPH % 14.4 % (8-40); MCH 35.1 pg (25.7-33.7); MCHC 33.6 g/dl (32.0-36.0); MEAN CELL VOLUME 104.6 fl (80-96); MEAN PLT VOLUME 6.5 fl (7.5-11.1); MONO % 7.5 % (3.8-10.2); NEUT % 76.8 % (42.8-82.8); PLATELET COUNT 290 K/MM3 (134-434); RBC 2.71 M/mm3 (3.60-5.2); WHITE BLOOD COUNT 4.8 K/mm3 (4.0-10.0)
[2018-02-18] MEDS ORDERED: DEXAMETHASONE INJECTION 10 MG, ONDANSETRON INJECTION 12 MG in SODIUM CHLORIDE 100 ML IVPB ONE (10:00)
[2018-02-18 10:04] LABS: ALBUMIN 3.1 g/dl (3.4-5.0); ALK PHOS 108 U/L (45-117); ANION GAP 7 (8-16); BILIRUBIN,DIRECT < 0.2 mg/dL (0.0-0.2); BILIRUBIN,TOTAL 0.3 mg/dL (0.2-1.0); BLOOD UREA NITROGEN 17 mg/dL (7-18); CALCIUM 8.2 mg/dL (8.5-10.1); CHLORIDE 102 mmol/L (98-107); CO2 25 mmol/L (21-32); CREATININE 1.5 mg/dL (0.55-1.02); GLUCOSE,RANDOM 110 mg/dL (74-106); MAGNESIUM 1.9 mg/dL (1.8-2.4); POTASSIUM 4.3 mmol/L (3.5-5.1); SGOT/AST 30 U/L (15-37); SGPT/ALT 20 U/L (12-78); SODIUM 134 mmol/L (136-145)
[2018-02-18] MEDS ORDERED: PORTA CATH FLUSH 10 ML IVPUSH ONE (10:24)
[2018-02-18] MEDS ORDERED: GEMCITABINE HCL 1,482 MG in SODIUM CHLORIDE 250 ML IV ONE (10:30)
[2018-02-18 15:58] VITALS: BP 155/83; PULSE 86
== END 2018-02-18 14:00 | disposition home or self-care (01) ==
LOC: JONCCHEMO 07:48 → J7W 10:25 → JONCCHEMO 14:00
PROVIDERS: ATTEND Internal Medicine Hematology & Oncology
DX: Z51.11 Encounter for antineoplastic chemotherapy (principal); C50.311 Malignant neoplasm of lower-inner quadrant of right female breast
CPT/HCPCS: 36415; 80053; 80076; 83735; 85025; 96361; 96367; 96375; 96413; J1100

== ENCOUNTER 2018-02-19 07:35 | Day surgery (SDC) | payer OTHER ==
[2018-02-19] MEDS ORDERED: PEGFILGRASTIM 6 MG/0.6 ML DISP.SYRIN SQ ONE (10:00)
[2018-02-19 16:13] VITALS: BP 144/78; PULSE 97; TEMP 98.1
== END 2018-02-19 10:30 | disposition home or self-care (01) ==
LOC: JONCCHEMO 07:35 → J7W 10:10 → JONCCHEMO 10:30
PROVIDERS: ATTEND Internal Medicine Hematology & Oncology
PROC: 3E013GC Introduction of Other Therapeutic Substance into Subcutaneous Tissue, Percutaneous Approach (ICD-10-PCS; principal; 2018-02-19)
DX: C50.311 Malignant neoplasm of lower-inner quadrant of right female breast (principal); Z76.89 Persons encountering health services in other specified circumstances
CPT/HCPCS: 96372; J2505

== ENCOUNTER → 2018-03-05 | Day surgery (SDC) | payer OTHER | END | disposition home or self-care (01) | LOC: JRADIR 10:00 | PROVIDERS: ATTEND Internal Medicine Hematology & Oncology | PROC: B516YZA Fluoroscopy of Right Subclavian Vein using Other Contrast, Guidance (ICD-10-PCS; principal; 2018-03-05) | PROC: B51MYZA Fluoroscopy of Right Upper Extremity Veins using Other Contrast, Guidance (ICD-10-PCS; 2018-03-05) | DX: M79.89 Other specified soft tissue disorders (principal); C50.919 Malignant neoplasm of unspecified site of unspecified female breast; Z98.890 Other specified postprocedural states | CPT/HCPCS: 75820-TC-FY; C1769 ==

== ENCOUNTER 2018-03-11 08:21 | Day surgery (SDC) | payer OTHER ==
[~2018-03-11 08:21] MED LIST: SODIUM CHLORIDE 250 ML IV ONE
[2018-03-11] MEDS ORDERED: DEXAMETHASONE INJECTION 10 MG, ONDANSETRON INJECTION 12 MG in SODIUM CHLORIDE 100 ML IVPB ONE (08:30)
[2018-03-11] MEDS ORDERED: GEMCITABINE HCL 1,482 MG in SODIUM CHLORIDE 250 ML IV ONE (09:00)
[2018-03-11] MEDS ORDERED: SODIUM CHLORIDE 250 ML IV ONE (09:30)
[2018-03-11 12:26] LABS: ALBUMIN 3.5 g/dl (3.4-5.0); BASO % 1.4 % (0-2.0); BILIRUBIN,DIRECT 0.2 mg/dL (0.0-0.2); BILIRUBIN,TOTAL 0.4 mg/dL (0.2-1.0); HEMATOCRIT 27.7 % (32.4-45.2); HEMOGLOBIN 9.5 GM/dL (10.7-15.3); LYMPH % 16.3 % (8-40); MCH 35.7 pg (25.7-33.7); MCHC 34.3 g/dl (32.0-36.0); MEAN CELL VOLUME 103.9 fl (80-96); MEAN PLT VOLUME 6.6 fl (7.5-11.1); MONO % 14.4 % (3.8-10.2); NEUT % 66.9 % (42.8-82.8); PLATELET COUNT 348 K/MM3 (134-434); RBC 2.67 M/mm3 (3.60-5.2); RDW 18.7 % (11.6-15.6); SGOT/AST 45 U/L (15-37); SGPT/ALT 29 U/L (12-78); TOT PROT 6.3 g/dl (6.4-8.2); WHITE BLOOD COUNT 4.6 K/mm3 (4.0-10.0)
[2018-03-11 12:27] LABS: ALK PHOS 96 U/L (45-117)
[2018-03-11 13:03] LABS: ANION GAP 9 (8-16); BLOOD UREA NITROGEN 21 mg/dL (7-18); CALCIUM 8.9 mg/dL (8.5-10.1); CHLORIDE 98 mmol/L (98-107); CO2 27 mmol/L (21-32); CREATININE 1.4 mg/dL (0.55-1.02); GLUCOSE,RANDOM 95 mg/dL (74-106); SODIUM 134 mmol/L (136-145)
[2018-03-11 16:57] VITALS: BP 163/88; PULSE 80; TEMP 98.3
[2018-03-11] MEDS ORDERED: PORTA CATH FLUSH 10 ML IVPUSH ONE (16:57)
== END 2018-03-11 15:30 | disposition home or self-care (01) ==
LOC: JONCCHEMO 08:21 → J7W 11:08 → JONCCHEMO 15:30
PROVIDERS: ATTEND Internal Medicine Hematology & Oncology
DX: Z51.11 Encounter for antineoplastic chemotherapy (principal); C50.311 Malignant neoplasm of lower-inner quadrant of right female breast
CPT/HCPCS: 36415; 80053; 80076; 83735; 85025; 96361; 96367; 96375; 96413; J1100; J2405

== ENCOUNTER 2018-05-27 07:28 | Day surgery (SDC) | payer OTHER ==
[2018-05-27] MEDS ORDERED: SODIUM CHLORIDE 250 ML IV ONE (09:30)
[2018-05-27] MEDS ORDERED: DEXAMETHASONE INJECTION 20 MG in SODIUM CHLORIDE 50 ML IVPB ONE (10:00)
[2018-05-27] MEDS ORDERED: PALONOSETRON HCL 0.25 MG/5 ML VIAL IVPUSH ONE (10:00)
[2018-05-27] MEDS ORDERED: FOSAPREPITANT DIMEGLUMINE 150 MG in SODIUM CHLORIDE 150 ML IVPB ONE (10:00)
[2018-05-27] MEDS ORDERED: SODIUM CHLORIDE IV ONE (10:30)
[2018-05-27] MEDS ORDERED: DOXORUBICIN HCL IV ONE (10:30)
[2018-05-27] MEDS ORDERED: amLODIPine BESYLATE 5 MG TABLET (FP) PO ONE (10:45)
[2018-05-27 10:54] LABS: BASO % 0.8 % (0-2.0); EOS % 2.3 % (0-4.5); HEMATOCRIT 31.5 % (32.4-45.2); HEMOGLOBIN 10.6 GM/dL (10.7-15.3); LYMPH % 11.6 % (8-40); MCH 32.6 pg (25.7-33.7); MCHC 33.5 g/dl (32.0-36.0); MEAN CELL VOLUME 97.5 fl (80-96); MEAN PLT VOLUME 6.9 fl (7.5-11.1); MONO % 8.6 % (3.8-10.2); NEUT % 76.7 % (42.8-82.8); PLATELET COUNT 254 K/MM3 (134-434); RBC 3.24 M/mm3 (3.60-5.2); RDW 13.9 % (11.6-15.6); WHITE BLOOD COUNT 5.5 K/mm3 (4.0-10.0)
[2018-05-27] MEDS ORDERED: CYCLOPHOSPHAMIDE INJECTION 780 MG in SODIUM CHLORIDE 250 ML IVPB ONE (11:00)
[2018-05-27 11:21] LABS: ALBUMIN 3.4 g/dl (3.4-5.0); ALK PHOS 108 U/L (45-117); ANION GAP 8 MMOL/L (8-16); BILIRUBIN,DIRECT < 0.2 mg/dL (0.0-0.2); BILIRUBIN,TOTAL 0.4 mg/dL (0.2-1); BLOOD UREA NITROGEN 21 mg/dL (7-18); CALCIUM 9.1 mg/dL (8.5-10.1); CHLORIDE 98 mmol/L (98-107); CO2 27 mmol/L (21-32); CREATININE 1.5 mg/dL (0.55-1.3); GLUCOSE,RANDOM 91 mg/dL (74-106); MAGNESIUM 2.1 mg/dL (1.8-2.4); POTASSIUM 4.2 mmol/L (3.5-5.1); SGOT/AST 38 U/L (15-37); SGPT/ALT 15 U/L (13-61); SODIUM 134 mmol/L (136-145); TOT PROT 6.9 g/dl (6.4-8.2)
[2018-05-27 11:50] VITALS: TEMP 99.9
[2018-05-27] MEDS ORDERED: PORTA CATH FLUSH 10 ML IVPUSH ONE (11:55)
[2018-05-27] MEDS ORDERED: SODIUM CHLORIDE 500 ML IV ONE (12:00)
[2018-05-27 15:43] VITALS: BP 146/87; PULSE 81
== END 2018-05-27 15:40 | disposition home or self-care (01) ==
LOC: JONCCHEMO 07:28 → J7W 09:38 → JONCCHEMO 15:40
PROVIDERS: ATTEND Internal Medicine Hematology & Oncology
DX: Z51.11 Encounter for antineoplastic chemotherapy (principal); C50.311 Malignant neoplasm of lower-inner quadrant of right female breast
CPT/HCPCS: 36415; 80048; 80076; 82378; 83735; 85025; 85651; 86300; 96361; 96367; 96375; 96413; 96417; J1100; J1453; J2469; J9070

== ENCOUNTER 2018-05-28 07:32 | Day surgery (SDC) | payer OTHER ==
[2018-05-28] MEDS ORDERED: PEGFILGRASTIM 6 MG/0.6 ML DISP.SYRIN SQ ONE (10:00)
[2018-05-28] MEDS ORDERED: SODIUM CHLORIDE 500 ML IV ONE (12:45)
[2018-05-28 15:15] VITALS: TEMP 98.7
[2018-05-28 15:19] VITALS: BP 155/85; PULSE 88
[2018-05-28] MEDS ORDERED: PORTA CATH FLUSH 10 ML IVPUSH ONE (15:19)
== END 2018-05-28 15:27 | disposition home or self-care (01) ==
LOC: JONCCHEMO 07:32 → J7W 12:28 → JONCCHEMO 15:27
PROVIDERS: ATTEND Internal Medicine Hematology & Oncology
PROC: 3E013GC Introduction of Other Therapeutic Substance into Subcutaneous Tissue, Percutaneous Approach (ICD-10-PCS; principal; 2018-05-28)
DX: C50.311 Malignant neoplasm of lower-inner quadrant of right female breast (principal); Z76.89 Persons encountering health services in other specified circumstances
CPT/HCPCS: 96360; 96361; 96372; J2505

== ENCOUNTER 2018-06-17 07:44 | Day surgery (SDC) | payer OTHER ==
[2018-06-17 09:23] VITALS: TEMP 98.3
[2018-06-17] MEDS ORDERED: SODIUM CHLORIDE 250 ML IV ONE (09:30)
[2018-06-17] MEDS ORDERED: FOSAPREPITANT DIMEGLUMINE 150 MG in SODIUM CHLORIDE 150 ML IVPB ONE (10:00)
[2018-06-17] MEDS ORDERED: DEXAMETHASONE INJECTION 20 MG in SODIUM CHLORIDE 50 ML IVPB ONE (10:00)
[2018-06-17] MEDS ORDERED: PALONOSETRON HCL 0.25 MG/5 ML VIAL IVPUSH ONE (10:00)
[2018-06-17] MEDS ORDERED: SODIUM CHLORIDE IV ONE (10:30)
[2018-06-17] MEDS ORDERED: DOXORUBICIN HCL IV ONE (10:30)
[2018-06-17] MEDS ORDERED: CYCLOPHOSPHAMIDE INJECTION 780 MG in SODIUM CHLORIDE 250 ML IVPB ONE (11:00)
[2018-06-17] MEDS ORDERED: SODIUM CHLORIDE 500 ML IV ONE (12:00)
[2018-06-17 12:05] LABS: BASO % 0.4 % (0-2.0); EOS % 0.9 % (0-4.5); HEMOGLOBIN 9.8 GM/dL (10.7-15.3); LYMPH % 7.9 % (8-40); MCH 32.4 pg (25.7-33.7); MCHC 33.9 g/dl (32.0-36.0); MEAN CELL VOLUME 95.5 fl (80-96); MEAN PLT VOLUME 7.2 fl (7.5-11.1); MONO % 9.6 % (3.8-10.2); NEUT % 81.2 % (42.8-82.8); PLATELET COUNT 367 K/MM3 (134-434); RBC 3.04 M/mm3 (3.60-5.2); WHITE BLOOD COUNT 8.5 K/mm3 (4.0-10.0)
[2018-06-17 12:47] LABS: ALBUMIN 3.3 g/dl (3.4-5.0); ALK PHOS 122 U/L (45-117); ANION GAP 9 MMOL/L (8-16); BILIRUBIN,DIRECT 0.1 mg/dL (0.0-0.2); BILIRUBIN,TOTAL 0.3 mg/dL (0.2-1); BLOOD UREA NITROGEN 16 mg/dL (7-18); CALCIUM 8.8 mg/dL (8.5-10.1); CHLORIDE 101 mmol/L (98-107); CO2 26 mmol/L (21-32); CREATININE 1.1 mg/dL (0.55-1.3); GLUCOSE,RANDOM 102 mg/dL (74-106); MAGNESIUM 1.8 mg/dL (1.8-2.4); POTASSIUM 4.1 mmol/L (3.5-5.1); SGOT/AST 30 U/L (15-37); SGPT/ALT 16 U/L (13-61); SODIUM 136 mmol/L (136-145); TOT PROT 6.3 g/dl (6.4-8.2)
[2018-06-17] MEDS ORDERED: PORTA CATH FLUSH 10 ML IVPUSH ONE (14:28)
[2018-06-17 16:41] VITALS: BP 145/74; PULSE 76
[2018-06-18] MEDS ORDERED: PEGFILGRASTIM 6 MG/0.6 ML DISP.SYRIN SQ ONE (10:00)
== END 2018-06-17 16:40 | disposition home or self-care (01) ==
LOC: JONCCHEMO 07:44 → J7W 11:10 → JONCCHEMO 16:40
PROVIDERS: ATTEND Internal Medicine Hematology & Oncology
DX: Z51.11 Encounter for antineoplastic chemotherapy (principal); C50.311 Malignant neoplasm of lower-inner quadrant of right female breast
CPT/HCPCS: 36415; 80048; 80076; 83735; 85025; 96361; 96367; 96375; 96413; 96417; J1100; J1453; J2469; J9070

== ENCOUNTER 2018-06-18 07:19 | Day surgery (SDC) | payer OTHER ==
[2018-06-18] MEDS ORDERED: ONDANSETRON IVPB ONE (10:00)
[2018-06-18] MEDS ORDERED: SODIUM CHLORIDE IVPB ONE (10:00)
[2018-06-18] MEDS ORDERED: DEXAMETHASONE IVPB ONE (10:00)
[2018-06-18] MEDS ORDERED: POTASSIUM CHLORIDE 20 MEQ, MAGNESIUM SULFATE 1 GM in SODIUM CHLORIDE 1,000 ML IVPB ONE (10:30)
[2018-06-18] MEDS ORDERED: PEGFILGRASTIM 6 MG/0.6 ML DISP.SYRIN SQ ONE ×2 (11:00)
[2018-06-18 13:26] VITALS: TEMP 97.4
[2018-06-18] MEDS ORDERED: PORTA CATH FLUSH 10 ML IVPUSH ONE (13:35)
[2018-06-18 17:28] VITALS: BP 172/86; PULSE 91
== END 2018-06-18 17:29 | disposition home or self-care (01) ==
LOC: JONCCHEMO 07:19 → J7W 12:19 → JONCCHEMO 17:29
PROVIDERS: ATTEND Internal Medicine Hematology & Oncology
PROC: 3E013GC Introduction of Other Therapeutic Substance into Subcutaneous Tissue, Percutaneous Approach (ICD-10-PCS; principal; 2018-06-18)
PROC: 3E033GC Introduction of Other Therapeutic Substance into Peripheral Vein, Percutaneous Approach (ICD-10-PCS; 2018-06-18)
PROC: 3E043GC Introduction of Other Therapeutic Substance into Central Vein, Percutaneous Approach (ICD-10-PCS; 2018-06-18)
DX: C50.311 Malignant neoplasm of lower-inner quadrant of right female breast (principal); Z76.89 Persons encountering health services in other specified circumstances
CPT/HCPCS: 96361; 96366; 96367; 96372; 96375; J1100; J2505; J7030

== ENCOUNTER 2018-07-08 07:30 | Day surgery (SDC) | payer OTHER ==
[2018-07-08] MEDS ORDERED: SODIUM CHLORIDE 250 ML IV ONE ×2 (08:00→13:45)
[2018-07-08] MEDS ORDERED: PALONOSETRON HCL 0.25 MG/5 ML VIAL IVPUSH ONE (08:30)
[2018-07-08] MEDS ORDERED: FOSAPREPITANT DIMEGLUMINE 150 MG in SODIUM CHLORIDE 145 ML IVPB ONE (08:30)
[2018-07-08] MEDS ORDERED: DEXAMETHASONE INJECTION 20 MG in SODIUM CHLORIDE 50 ML IVPB ONE (08:30)
[2018-07-08] MEDS ORDERED: SODIUM CHLORIDE IV ONE (09:00)
[2018-07-08] MEDS ORDERED: DOXORUBICIN HCL IV ONE (09:00)
[2018-07-08] MEDS ORDERED: CYCLOPHOSPHAMIDE INJECTION 780 MG in SODIUM CHLORIDE 250 ML IVPB ONE (09:30)
[2018-07-08] MEDS ORDERED: SODIUM CHLORIDE 500 ML IV ONE (10:30)
[2018-07-08 11:20] LABS: BASO % 0.4 % (0-2.0); EOS % 0.8 % (0-4.5); HEMATOCRIT 29.5 % (32.4-45.2); HEMOGLOBIN 10.1 GM/dL (10.7-15.3); LYMPH % 7.3 % (8-40); MCH 32.5 pg (25.7-33.7); MCHC 34.2 g/dl (32.0-36.0); MEAN CELL VOLUME 94.8 fl (80-96); MEAN PLT VOLUME 7.1 fl (7.5-11.1); MONO % 8.9 % (3.8-10.2); NEUT % 82.6 % (42.8-82.8); PLATELET COUNT 308 K/MM3 (134-434); RBC 3.11 M/mm3 (3.60-5.2); RDW 16.7 % (11.6-15.6)
[2018-07-08 12:04] LABS: ALBUMIN 3.3 g/dl (3.4-5.0); ALK PHOS 125 U/L (45-117); ANION GAP 8 MMOL/L (8-16); BILIRUBIN,DIRECT 0.1 mg/dL (0.0-0.2); BILIRUBIN,TOTAL 0.3 mg/dL (0.2-1); BLOOD UREA NITROGEN 21 mg/dL (7-18); CALCIUM 8.6 mg/dL (8.5-10.1); CHLORIDE 100 mmol/L (98-107); CO2 27 mmol/L (21-32); CREATININE 1.2 mg/dL (0.55-1.3); GLUCOSE,RANDOM 93 mg/dL (74-106); POTASSIUM 4.1 mmol/L (3.5-5.1); SGOT/AST 25 U/L (15-37); SGPT/ALT 15 U/L (13-61); SODIUM 136 mmol/L (136-145); TOT PROT 6.1 g/dl (6.4-8.2)
[2018-07-08 14:16] VITALS: TEMP 98.2
[2018-07-08] MEDS ORDERED: PORTA CATH FLUSH 10 ML IVPUSH ONE (14:35)
[2018-07-08 16:48] VITALS: BP 123/77; PULSE 101
== END 2018-07-08 16:50 | disposition home or self-care (01) ==
LOC: JONCCHEMO 07:30 → J7W 10:27 → JONCCHEMO 16:50
PROVIDERS: ATTEND Internal Medicine Hematology & Oncology
DX: Z51.11 Encounter for antineoplastic chemotherapy (principal); C50.311 Malignant neoplasm of lower-inner quadrant of right female breast
CPT/HCPCS: 36415; 80048; 80076; 82378; 85025; 86300; 96361; 96367; 96375; 96413; 96417; J1100; J1453; J2469; J9070

== ENCOUNTER 2018-07-09 07:37 | Day surgery (SDC) | payer OTHER ==
[2018-07-09] MEDS ORDERED: PEGFILGRASTIM 6 MG/0.6 ML DISP.SYRIN SQ ONE (09:00)
[2018-07-09] MEDS ORDERED: SODIUM CHLORIDE 500 ML IV ONE (12:00)
[2018-07-09] MEDS ORDERED: DEXAMETHASONE SOD PHOSPHATE 4 MG/1 ML VIAL IVPB ONE (12:00)
[2018-07-09] MEDS ORDERED: ONDANSETRON 4 MG/2 ML VIAL IVPB ONE (12:00)
[2018-07-09 16:04] VITALS: TEMP 97.8
[2018-07-09 16:14] VITALS: BP 157/79; PULSE 90
[2018-07-09] MEDS ORDERED: PORTA CATH FLUSH 10 ML IVPUSH ONE (16:14)
== END 2018-07-09 14:40 | disposition home or self-care (01) ==
LOC: JONCCHEMO 07:37 → J7W 11:58 → JONCCHEMO 14:40
PROVIDERS: ATTEND Internal Medicine Hematology & Oncology
PROC: 3E013GC Introduction of Other Therapeutic Substance into Subcutaneous Tissue, Percutaneous Approach (ICD-10-PCS; principal; 2018-07-09)
PROC: 3E0437Z Introduction of Electrolytic and Water Balance Substance into Central Vein, Percutaneous Approach (ICD-10-PCS; 2018-07-09)
DX: C50.311 Malignant neoplasm of lower-inner quadrant of right female breast (principal); Z76.89 Persons encountering health services in other specified circumstances
CPT/HCPCS: 96360; 96361; 96367; 96372; 96375; J2505

== ENCOUNTER 2018-07-29 07:19 | Day surgery (SDC) | payer OTHER ==
[2018-07-29] MEDS ORDERED: SODIUM CHLORIDE 250 ML IV ONE (09:30)
[2018-07-29 09:48] LABS: BASO % 0.6 % (0-2.0); EOS % 0.9 % (0-4.5); HEMATOCRIT 28.9 % (32.4-45.2); HEMOGLOBIN 10.1 GM/dL (10.7-15.3); MCH 33.3 pg (25.7-33.7); MCHC 34.9 g/dl (32.0-36.0); MEAN CELL VOLUME 95.3 fl (80-96); MEAN PLT VOLUME 7.3 fl (7.5-11.1); MONO % 12.4 % (3.8-10.2); NEUT % 77.1 % (42.8-82.8); PLATELET COUNT 279 K/MM3 (134-434); RBC 3.04 M/mm3 (3.60-5.2); RDW 18.4 % (11.6-15.6); WHITE BLOOD COUNT 5.7 K/mm3 (4.0-10.0)
[2018-07-29] MEDS ORDERED: FOSAPREPITANT DIMEGLUMINE 150 MG in SODIUM CHLORIDE 150 ML IVPB ONE (10:00)
[2018-07-29] MEDS ORDERED: PALONOSETRON HCL 0.25 MG/5 ML VIAL IVPUSH ONE (10:00)
[2018-07-29] MEDS ORDERED: DEXAMETHASONE SODIUM PHOSPHATE 20 MG in SODIUM CHLORIDE 50 ML IVPB ONE (10:00)
[2018-07-29 10:21] LABS: ALBUMIN 3.4 g/dl (3.4-5.0); ALK PHOS 118 U/L (45-117); ANION GAP 12 MMOL/L (8-16); BILIRUBIN,DIRECT 0.1 mg/dL (0.0-0.2); BILIRUBIN,TOTAL 0.3 mg/dL (0.2-1); BLOOD UREA NITROGEN 27 mg/dL (7-18); CALCIUM 8.9 mg/dL (8.5-10.1); CHLORIDE 101 mmol/L (98-107); CO2 24 mmol/L (21-32); CREATININE 1.5 mg/dL (0.55-1.3); GLUCOSE,RANDOM 110 mg/dL (74-106); MAGNESIUM 1.8 mg/dL (1.8-2.4); POTASSIUM 4.3 mmol/L (3.5-5.1); SGOT/AST 27 U/L (15-37); SGPT/ALT 15 U/L (13-61); SODIUM 137 mmol/L (136-145); TOT PROT 6.1 g/dl (6.4-8.2)
[2018-07-29] MEDS ORDERED: SODIUM CHLORIDE IV ONE (10:30)
[2018-07-29] MEDS ORDERED: DOXORUBICIN HCL IV ONE (10:30)
[2018-07-29] MEDS ORDERED: SODIUM CHLORIDE IVPB ONE (11:00)
[2018-07-29] MEDS ORDERED: CYCLOPHOSPHAMIDE IVPB ONE (11:00)
[2018-07-29] MEDS ORDERED: SODIUM CHLORIDE 500 ML IV ONE (12:00)
[2018-07-29 13:57] VITALS: TEMP 97.6
[2018-07-29] MEDS ORDERED: PORTA CATH FLUSH 10 ML IVPUSH ONE (15:13)
[2018-07-29 15:14] VITALS: BP 138/78; PULSE 87
== END 2018-07-29 15:00 | disposition home or self-care (01) ==
LOC: JONCCHEMO 07:19 → J7W 09:57 → JONCCHEMO 15:00
PROVIDERS: ATTEND Internal Medicine Hematology & Oncology
DX: Z51.11 Encounter for antineoplastic chemotherapy (principal); C50.311 Malignant neoplasm of lower-inner quadrant of right female breast
CPT/HCPCS: 36415; 80053; 80076; 82378; 83735; 85025; 86300; 96361; 96367; 96375; 96413; 96415; 96417; J1453; J2469; J9070

== ENCOUNTER 2018-07-30 07:28 | Day surgery (SDC) | payer OTHER ==
[2018-07-30] MEDS ORDERED: DEXAMETHASONE SODIUM PHOSPHATE 10 MG, ONDANSETRON INJECTION 8 MG in SODIUM CHLORIDE 100 ML IVPB ONE (10:00)
[2018-07-30] MEDS ORDERED: POTASSIUM CHLORIDE 20 MEQ, MAGNESIUM SULFATE 1 GM in DEXTROSE 5%-NORMAL SALINE 500 ML IVPB ONE (10:00)
[2018-07-30] MEDS ORDERED: PEGFILGRASTIM 6 MG/0.6 ML DISP.SYRIN SQ ONE (10:00)
[2018-07-30 14:22] VITALS: BP 133/76; PULSE 94; TEMP 98.1
== END 2018-07-30 15:15 | disposition home or self-care (01) ==
LOC: JONCCHEMO 07:28 → J7W 12:30 → JONCCHEMO 15:15
PROVIDERS: ATTEND Internal Medicine Hematology & Oncology
PROC: 3E013GC Introduction of Other Therapeutic Substance into Subcutaneous Tissue, Percutaneous Approach (ICD-10-PCS; principal; 2018-07-30)
PROC: 3E043GC Introduction of Other Therapeutic Substance into Central Vein, Percutaneous Approach (ICD-10-PCS; 2018-07-30)
DX: C50.311 Malignant neoplasm of lower-inner quadrant of right female breast (principal); Z76.89 Persons encountering health services in other specified circumstances
CPT/HCPCS: 96360; 96361; 96366; 96372; 96374; 96375; J2505

== ENCOUNTER 2018-08-05 14:19 | Day surgery (SDC) | payer OTHER ==
[2018-08-05] MEDS ORDERED: [UNRECOGNIZED DRUG - OTHER] IV SCH (15:30)
[2018-08-05] MEDS ORDERED: NORMAL SALINE IV SCH (15:30)
[2018-08-05] MEDS ORDERED: DEXTROSE IV SCH (15:30)
[2018-08-05] MEDS ORDERED: POTASSIUM CHLORIDE IV SCH (15:30)
[2018-08-05] MEDS ORDERED: LOPERAMIDE HCL 2 MG CAPSULE PO ONE (15:45)
[2018-08-05] MEDS ORDERED: SODIUM CHLORIDE IVPB ONE (15:45)
[2018-08-05] MEDS ORDERED: ONDANSETRON IVPB ONE (15:45)
[2018-08-05] MEDS ORDERED: DEXAMETHASONE IVPB ONE (15:45)
[2018-08-05 16:57] VITALS: BP 119/75; PULSE 112; TEMP 97.5
[2018-08-05] MEDS ORDERED: PORTA CATH FLUSH 10 ML IVPUSH ONE (17:08)
[2018-08-05 18:10] LABS: HEMATOCRIT 27.9 % (32.4-45.2); MCH 34.6 pg (25.7-33.7); MCHC 35.6 g/dl (32.0-36.0); MEAN PLT VOLUME 7.9 fl (7.5-11.1); PLATELET COUNT 168 K/MM3 (134-434); RBC 2.88 M/mm3 (3.60-5.2); RDW 18.5 % (11.6-15.6); WHITE BLOOD COUNT 7.7 K/mm3 (4.0-10.0)
[2018-08-05 19:38] LABS: ALBUMIN 2.9 g/dl (3.4-5.0); ALK PHOS 115 U/L (45-117); ANION GAP 5 MMOL/L (8-16); BILIRUBIN,TOTAL 0.3 mg/dL (0.2-1); BLOOD UREA NITROGEN 20 mg/dL (7-18); CHLORIDE 105 mmol/L (98-107); CO2 27 mmol/L (21-32); CREATININE 1.2 mg/dL (0.55-1.3); GLUCOSE,RANDOM 246 mg/dL (74-106); POTASSIUM 4.5 mmol/L (3.5-5.1); SGOT/AST 20 U/L (15-37); SGPT/ALT 13 U/L (13-61); SODIUM 137 mmol/L (136-145); TOT PROT 5.4 g/dl (6.4-8.2)
== END 2018-08-05 20:41 | disposition home or self-care (01) ==
LOC: JONCNONCHE 14:19 → J7W 14:58 → JONCNONCHE 20:41
PROVIDERS: ATTEND Internal Medicine Hematology & Oncology
PROC: 3E043GC Introduction of Other Therapeutic Substance into Central Vein, Percutaneous Approach (ICD-10-PCS; principal; 2018-08-05)
PROC: 3E0437Z Introduction of Electrolytic and Water Balance Substance into Central Vein, Percutaneous Approach (ICD-10-PCS; 2018-08-05)
DX: C50.311 Malignant neoplasm of lower-inner quadrant of right female breast (principal); Z76.89 Persons encountering health services in other specified circumstances
CPT/HCPCS: 36415; 80053; 85027; 96361; 96365; 96367; 96375

== ENCOUNTER 2018-10-10 07:27 | Day surgery (SDC) | payer OTHER ==
[2018-10-10] MEDS ORDERED: SODIUM CHLORIDE 250 ML IV ONE ×2 (09:30→10:15)
[2018-10-10] MEDS ORDERED: SODIUM CHLORIDE IVPB ONE (10:00)
[2018-10-10] MEDS ORDERED: VINORELBINE TARTRATE IVPB ONE (10:00)
[2018-10-10 11:20] LABS: BASO % 0.8 % (0-2.0); EOS % 2.1 % (0-4.5); HEMATOCRIT 31.5 % (32.4-45.2); LYMPH % 16.1 % (8-40); MCH 35.2 pg (25.7-33.7); MCHC 34.9 g/dl (32.0-36.0); MEAN CELL VOLUME 100.8 fl (80-96); MEAN PLT VOLUME 7.2 fl (7.5-11.1); MONO % 10.4 % (3.8-10.2); NEUT % 70.6 % (42.8-82.8); PLATELET COUNT 202 K/MM3 (134-434); RBC 3.13 M/mm3 (3.60-5.2); RDW 13.5 % (11.6-15.6)
[2018-10-10] MEDS ORDERED: DEXAMETHASONE SOD PHOSPHATE 10 MG/1 ML VIAL IVPB ONE (11:30)
[2018-10-10] MEDS ORDERED: ONDANSETRON 4 MG/2 ML VIAL IVPB ONE (11:30)
[2018-10-10 11:35] LABS: ANION GAP 10 MMOL/L (8-16); BLOOD UREA NITROGEN 21 mg/dL (7-18); CALCIUM 8.7 mg/dL (8.5-10.1); CHLORIDE 103 mmol/L (98-107); CO2 25 mmol/L (21-32); CREATININE 1.2 mg/dL (0.55-1.3); GLUCOSE,RANDOM 92 mg/dL (74-106); SODIUM 138 mmol/L (136-145)
[2018-10-10 11:40] LABS: ALBUMIN 3.4 g/dl (3.4-5.0); BILIRUBIN,DIRECT 0.1 mg/dL (0.0-0.2); BILIRUBIN,TOTAL 0.4 mg/dL (0.2-1); MAGNESIUM 1.7 mg/dL (1.8-2.4); TOT PROT 6.6 g/dl (6.4-8.2)
[2018-10-10] MEDS ORDERED: MAGNESIUM SULF 50% (8.12 MEQ/2 ML-1 GM VIAL) IVPB SCH (12:30)
[2018-10-10 16:27] LABS: URINE APPEARANCE SLCLOUDY; URINE BILIRUBIN NEGATIVE (<2.0 mg/dL); URINE COLOR YELLOW; URINE GLUCOSE (UA) NEGATIVE (NEGATIVE); URINE KETONE NEGATIVE (NEGATIVE); URINE LEUK ESTERASE TRACE (NEGATIVE); URINE NITRITE NEGATIVE (NEGATIVE); URINE PROTEIN 2+ (NEGATIVE); URINE UROBILINOGEN NEGATIVE mg/dL (0.2-1.0)
[2018-10-10 16:31] LABS: EPI CELLS RARE /HPF (FEW); URINE MUCUS RARE
[2018-10-10] MEDS ORDERED: PORTA CATH FLUSH 10 ML IVPUSH ONE (16:51)
[2018-10-10 16:52] VITALS: BP 152/90; PULSE 109; TEMP 97.5
== END 2018-10-10 19:00 | disposition home or self-care (01) ==
LOC: JONCCHEMO 07:27 → J7W 10:08 → JONCCHEMO 19:00
PROVIDERS: ATTEND Internal Medicine Hematology & Oncology
DX: Z51.11 Encounter for antineoplastic chemotherapy (principal); C50.311 Malignant neoplasm of lower-inner quadrant of right female breast
CPT/HCPCS: 36415; 80048; 80076; 81003; 81015; 83735; 85025; 87086; 96361; 96375; 96409; 96413; J1100; J9390

== ENCOUNTER 2018-10-17 05:40 | Day surgery (SDC) | payer OTHER ==
[2018-10-17] MEDS ORDERED: SODIUM CHLORIDE 250 ML IV ONE ×2 (08:00→09:07)
[2018-10-17] MEDS ORDERED: DEXAMETHASONE SODIUM PHOSPHATE 8 MG, ONDANSETRON INJECTION 8 MG in SODIUM CHLORIDE 100 ML IVPB ONE (08:30)
[2018-10-17] MEDS ORDERED: VINORELBINE TARTRATE IVPB ONE (09:00)
[2018-10-17] MEDS ORDERED: SODIUM CHLORIDE IVPB ONE (09:00)
[2018-10-17 09:58] LABS: BASO % 0.5 % (0-2.0); EOS % 1.6 % (0-4.5); HEMATOCRIT 30.8 % (32.4-45.2); LYMPH % 14.3 % (8-40); MCH 35.3 pg (25.7-33.7); MCHC 35.6 g/dl (32.0-36.0); MEAN CELL VOLUME 99.1 fl (80-96); MEAN PLT VOLUME 7.4 fl (7.5-11.1); MONO % 6.7 % (3.8-10.2); NEUT % 76.9 % (42.8-82.8); PLATELET COUNT 185 K/MM3 (134-434); RBC 3.11 M/mm3 (3.60-5.2); RDW 13.1 % (11.6-15.6); WHITE BLOOD COUNT 3.8 K/mm3 (4.0-10.0)
[2018-10-17] MEDS ORDERED: MAGNESIUM SULF 50% (8.12 MEQ/2 ML-1 GM VIAL) ONE (10:55)
[2018-10-17 11:20] LABS: ALBUMIN 3.6 g/dl (3.4-5.0); ALK PHOS 102 U/L (45-117); ANION GAP 10 MMOL/L (8-16); BILIRUBIN,DIRECT 0.2 mg/dL (0.0-0.2); BILIRUBIN,TOTAL 0.5 mg/dL (0.2-1); BLOOD UREA NITROGEN 24 mg/dL (7-18); CALCIUM 9.8 mg/dL (8.5-10.1); CHLORIDE 96 mmol/L (98-107); CO2 27 mmol/L (21-32); CREATININE 1.5 mg/dL (0.55-1.3); GLUCOSE,RANDOM 103 mg/dL (74-106); MAGNESIUM 1.6 mg/dL (1.8-2.4); SGOT/AST 29 U/L (15-37); SGPT/ALT 17 U/L (13-61); SODIUM 133 mmol/L (136-145); TOT PROT 6.5 g/dl (6.4-8.2)
[2018-10-17] MEDS ORDERED: NORMAL SALINE IVPB ONE (11:30)
[2018-10-17] MEDS ORDERED: [UNRECOGNIZED DRUG - OTHER] IVPB ONE (11:30)
[2018-10-17] MEDS ORDERED: DEXTROSE IVPB ONE (11:30)
[2018-10-17] MEDS ORDERED: POTASSIUM CHLORIDE IVPB ONE (11:30)
[2018-10-17 15:48] VITALS: BP 146/87; PULSE 104; TEMP 97.8
[2018-10-17] MEDS ORDERED: PORTA CATH FLUSH 10 ML IVPUSH ONE (15:48)
== END 2018-10-17 15:45 | disposition home or self-care (01) ==
LOC: JONCCHEMO 05:40 → J7W 09:28 → JONCCHEMO 15:45
PROVIDERS: ATTEND Internal Medicine Hematology & Oncology
PROC: 3E04305 Introduction of Other Antineoplastic into Central Vein, Percutaneous Approach (ICD-10-PCS; principal; 2018-10-17)
PROC: 3E043GC Introduction of Other Therapeutic Substance into Central Vein, Percutaneous Approach (ICD-10-PCS; 2018-10-17)
DX: Z51.11 Encounter for antineoplastic chemotherapy (principal); C50.311 Malignant neoplasm of lower-inner quadrant of right female breast
CPT/HCPCS: 36415; 80048; 80076; 83735; 85025; 96361; 96365; 96366; 96367; 96375; 96409; 96413; J2405; J9390

== ENCOUNTER 2018-10-24 05:56 | Day surgery (SDC) | payer OTHER ==
[2018-10-24] MEDS ORDERED: DEXAMETHASONE SODIUM PHOSPHATE 8 MG, ONDANSETRON INJECTION 8 MG in SODIUM CHLORIDE 100 ML IVPB ONE (08:00)
[2018-10-24] MEDS ORDERED: VINORELBINE TARTRATE IVPB ONE (08:30)
[2018-10-24] MEDS ORDERED: SODIUM CHLORIDE IVPB ONE (08:30)
[2018-10-24] MEDS ORDERED: SODIUM CHLORIDE 250 ML IV ONE (08:36)
[2018-10-24 11:03] LABS: BASO % 1.3 % (0-2.0); HEMATOCRIT 30.7 % (32.4-45.2); HEMOGLOBIN 10.9 GM/dL (10.7-15.3); LYMPH % 24.5 % (8-40); MCH 34.8 pg (25.7-33.7); MCHC 35.6 g/dl (32.0-36.0); MEAN CELL VOLUME 97.8 fl (80-96); MEAN PLT VOLUME 7.5 fl (7.5-11.1); MONO % 10.3 % (3.8-10.2); NEUT % 61.9 % (42.8-82.8); PLATELET COUNT 226 K/MM3 (134-434); RBC 3.14 M/mm3 (3.60-5.2); WHITE BLOOD COUNT 2.4 K/mm3 (4.0-10.0)
[2018-10-24 12:03] LABS: BLOOD UREA NITROGEN 20 mg/dL (7-18); CREATININE 1.5 mg/dL (0.55-1.3); GLUCOSE,RANDOM 107 mg/dL (74-106)
[2018-10-24 12:04] LABS: ALBUMIN 3.6 g/dl (3.4-5.0); BILIRUBIN,DIRECT 0.2 mg/dL (0.0-0.2); BILIRUBIN,TOTAL 0.5 mg/dL (0.2-1); CALCIUM 9.3 mg/dL (8.5-10.1); CO2 27 mmol/L (21-32); MAGNESIUM 1.7 mg/dL (1.8-2.4); SGOT/AST 26 U/L (15-37); SGPT/ALT 14 U/L (13-61); TOT PROT 6.7 g/dl (6.4-8.2)
[2018-10-24 12:24] LABS: ANION GAP 9 MMOL/L (8-16); CHLORIDE 103 mmol/L (98-107); POTASSIUM 3.8 mmol/L (3.5-5.1); SODIUM 139 mmol/L (136-145)
[2018-10-24 13:45] LABS: ALK PHOS 107 U/L (45-117)
[2018-10-24 16:41] VITALS: BP 153/89; PULSE 99; TEMP 97.8
[2018-10-24] MEDS ORDERED: PORTA CATH FLUSH 10 ML IVPUSH ONE (16:41)
== END 2018-10-24 14:40 | disposition home or self-care (01) ==
LOC: JONCCHEMO 05:56 → J7W 09:57 → JONCCHEMO 14:40
PROVIDERS: ATTEND Internal Medicine Hematology & Oncology
DX: Z51.11 Encounter for antineoplastic chemotherapy (principal); C50.311 Malignant neoplasm of lower-inner quadrant of right female breast
CPT/HCPCS: 36415; 80048; 80076; 83735; 85025; 96367; 96375; 96409; 96413; J2405; J9390

== ENCOUNTER 2018-11-19 07:16 | Day surgery (SDC) | payer OTHER ==
[2018-11-19 10:57] LABS: BASO % 0.7 % (0-2.0); EOS % 0.8 % (0-4.5); HEMOGLOBIN 8.7 GM/dL (10.7-15.3); LYMPH % 5.3 % (8-40); MCH 35.1 pg (25.7-33.7); MCHC 34.8 g/dl (32.0-36.0); MEAN CELL VOLUME 100.6 fl (80-96); MEAN PLT VOLUME 6.7 fl (7.5-11.1); MONO % 8.5 % (3.8-10.2); NEUT % 84.7 % (42.8-82.8); PLATELET COUNT 250 K/MM3 (134-434); RBC 2.48 M/mm3 (3.60-5.2); RDW 17.3 % (11.6-15.6); WHITE BLOOD COUNT 7.7 K/mm3 (4.0-10.0)
[2018-11-19] MEDS ORDERED: FUROSEMIDE 40 MG/4 ML INJECTABLE VIAL IVPUSH ONE ×2 (11:00→16:45)
[2018-11-19 11:25] LABS: ANION GAP 8 MMOL/L (8-16); BLOOD UREA NITROGEN 20 mg/dL (7-18); CALCIUM 8.2 mg/dL (8.5-10.1); CHLORIDE 99 mmol/L (98-107); CO2 26 mmol/L (21-32); CREATININE 1.1 mg/dL (0.55-1.3); GLUCOSE,RANDOM 125 mg/dL (74-106); SODIUM 132 mmol/L (136-145)
[2018-11-19 11:28] LABS: ALBUMIN 3.1 g/dl (3.4-5.0); BILIRUBIN,DIRECT 0.2 mg/dL (0.0-0.2); BILIRUBIN,TOTAL 0.9 mg/dL (0.2-1); TOT PROT 5.9 g/dl (6.4-8.2)
[2018-11-19 14:39] LABS: OSMOLALITY,SERUM 277 mosm/kg (278-305)
[2018-11-19] MEDS ORDERED: PORTA CATH FLUSH 10 ML IVPUSH ONE (17:18)
[2018-11-20 08:36] LABS: BASO % 0.7 % (0-2.0); HEMATOCRIT 28.8 % (32.4-45.2); HEMOGLOBIN 10.4 GM/dL (10.7-15.3); MCH 34.7 pg (25.7-33.7); MCHC 36.1 g/dl (32.0-36.0); MEAN CELL VOLUME 96.3 fl (80-96); MEAN PLT VOLUME 6.6 fl (7.5-11.1); NEUT % 71.3 % (42.8-82.8); PLATELET COUNT 204 K/MM3 (134-434); RBC 2.99 M/mm3 (3.60-5.2); RDW 17.7 % (11.6-15.6); WHITE BLOOD COUNT 4.4 K/mm3 (4.0-10.0)
[2018-11-20 10:15] VITALS: TEMP 99
[2018-11-20 14:44] VITALS: BP 151/90; PULSE 87
== END 2018-11-20 16:08 ==
LOC: JONCBLOOD 07:16 → J7W 10:31 → JONCBLOOD 11-20 16:08
PROVIDERS: ATTEND Internal Medicine Hematology & Oncology
PROC: 30233N1 Transfusion of Nonautologous Red Blood Cells into Peripheral Vein, Percutaneous Approach (ICD-10-PCS; principal; 2018-11-19)
DX: D64.81 Anemia due to antineoplastic chemotherapy (principal); C50.919 Malignant neoplasm of unspecified site of unspecified female breast
CPT/HCPCS: 36415; 36430; 80048; 80076; 82533; 83930; 83935; 85025; 86850; 86900; 86901; 86922; P9038; P9058

== ENCOUNTER 2018-12-31 11:24 | Day surgery (SDC) | payer OTHER ==
[2018-12-30 17:02] VITALS: BMI 26.6
[~2018-12-31 11:24] MED LIST changes: -SODIUM CHLORIDE 250 ML IV ONE; +ceFAZolin SODIUM 1 GM VIAL IVPB ONE
[2018-12-31] MEDS ORDERED: ONDANSETRON 4 MG/2 ML VIAL IVPUSH PRN (13:46)
[2018-12-31] MEDS ORDERED: oxyCODONE HCL 5 MG TABLET PO PRN (13:46)
[2018-12-31] MEDS ORDERED: LACTATED RINGERS SOLUTION 1,000 ML IV SCH (14:00)
[2018-12-31] MEDS ORDERED: PROPOFOL 20 ML ONE (14:07)
[2018-12-31] MEDS ORDERED: LIDOCAINE HCL/PF 2% SDV 5ML VIAL ONE (14:07)
[2018-12-31] MEDS ORDERED: MIDAZOLAM HCL 2 MG/2 ML SINGLE DOSE VIAL ONE (14:08)
[2018-12-31] MEDS ORDERED: ceFAZolin SODIUM 1 GM VIAL IVPB ONE (14:30)
[2018-12-31] MEDS ORDERED: ceFAZolin SODIUM 1 GM VIAL ONE (14:31)
[2018-12-31] MEDS ORDERED: IOHEXOL 300 MG/ML INFUS..BTL IV ONE (14:35)
[2018-12-31] MEDS ORDERED: ACETAMINOPHEN 1000 MG/100 ML VIAL (NON FORMULARY) IVPB PRN (14:46)
[2018-12-31] MEDS ORDERED: ACETAMINOPHEN 1000 MG/100 ML VIAL (NON FORMULARY) IVPB ONE (14:52)
[2018-12-31] MEDS ORDERED: IBUPROFEN 800 MG/8 ML IJ IVPB SCH (15:00)
[2018-12-31] MEDS ORDERED: DEXTROSE 5%-0.45% SALINE 1,000 ML IV SCH (15:00)
[2018-12-31] MEDS ORDERED: MEPERIDINE HCL 25 MG/ML VIAL ONE (15:03)
[2018-12-31] MEDS ORDERED: ACETAMINOPHEN INJECTION 100 ML IVPB ONE (15:03)
[2018-12-31] MEDS ORDERED: MEPERIDINE HCL 25 MG/ML VIAL IVPUSH ONE (15:06)
[2018-12-31 17:52] VITALS: BP 137/75; PULSE 82; TEMP 98.2
--- NOTE | 2019-01-02 10:42 | PATH ---
Surgical Pathology Report Patient Name: NAPOLEON LIEBERMAN Med. Rec. #: [id number] /Age/Gender: 1945 (Age: 73) / F Account: [id number] Location: [facility] Taken: 12/31/2018 Received: 01/01/2019 Reported: 01/02/2019 Physicians: Mariano Stein M.D. Specimen(s) Received BILATERAL URETERAL STENTS Clinical History Bilateral hydronephrosis Final Diagnosis URETERAL STENTS, BILATERAL, REMOVAL: CONSISTENT WITH URETERAL STENTS (2). Electronically Signed Zeinab London M.D. Gross Description Received fresh labeled "bilateral ureteral stents" are 2 silver coiled metallic stents consistent with ureteral stents which measure 30 cm in length. No soft tissue present, for gross examination only. MLSZ/01/01/2019 sanml/01/01/2019
--- NOTE | 2019-01-16 19:36 | OP ---
DATE OF OPERATION: 12/31/2018 PREOPERATIVE DIAGNOSIS: Bilateral hydronephrosis secondary to extensive compression from metastatic breast cancer. POSTOPERATIVE DIAGNOSIS: Bilateral hydronephrosis secondary to extensive compression from metastatic breast cancer. PROCEDURE: Bilateral ureteral stent change and retrograde pyelogram. SURGEON: Mariano Stein MD ANESTHESIA: General. SPECIMENS: Metal stents. DRAINS: New metal stents. PREOPERATIVE INDICATIONS: Patient is a 73-year-old female who has a history of metastatic breast cancer, which has caused extensive compression of her ureters bilaterally with resulting chronic hydronephrosis. She has had metal stents in, which have worked very well. It is now time to change them. She comes to the OR. DESCRIPTION OF PROCEDURE: The patient was brought to the OR and placed on the table in the supine position and was given general anesthesia with IV antibiotics and was placed in the modified lithotomy position. The groin was prepped and draped sterilely. Cystoscopy was performed. The stents were seen emerging from both ureteral orifices. The right side was removed without difficulty. An open-ended catheter was placed into the right kidney. Retrograde pyelogram was performed to opacify the anatomy. The metal stent was then placed through the open-ended catheter and was placed with 1 loop in the bladder and 1 loop in the kidney. The left side was then removed and similarly an open-ended catheter was placed in the left ureter over a wire. Retrograde pyelogram was performed to help opacify the anatomy. Once again, a 6 x 24 metal stent was placed through the open-ended catheter and 1 loop was placed in the kidney and 1 loop in the bladder. The bladder was emptied and the patient was woken up. MARIANO STEIN M.D. [id number]
== END 2018-12-31 17:45 | disposition home or self-care (01) ==
LOC: JASU-SURG 11:24
PROVIDERS: ATTEND Urology
PROC: 0T788DZ Dilation of Bilateral Ureters with Intraluminal Device, Via Natural or Artificial Opening Endoscopic (ICD-10-PCS; principal; 2018-12-31 13:00)
PROC: 0TP98DZ Removal of Intraluminal Device from Ureter, Via Natural or Artificial Opening Endoscopic (ICD-10-PCS; 2018-12-31 13:00)
DX: N13.39 Other hydronephrosis (principal); C50.919 Malignant neoplasm of unspecified site of unspecified female breast; C79.9 Secondary malignant neoplasm of unspecified site
CPT/HCPCS: 76000-TC-FY; 88300-TC; 94760; J0131

== ENCOUNTER → 2019-01-22 | Day surgery (SDC) | payer OTHER ==
--- NOTE | 2019-01-23 15:07 | PATH ---
Surgical Pathology Report Patient Name: NAPOLEON LIEBERMAN [facility]. Rec. #: [id number] /Age/Gender: 1945 (Age: 73) / F Account: [id number] Location: [facility] Taken: 01/22/2019 Received: 01/22/2019 Reported: 01/23/2019 Physicians: Wolf Godfrey M.D. Specimen(s) Received A: LEFT BREAS SPECIMEN - WITH CALCIFICATIONS B: LEFT BREAST SPECIMEN - WITHOUT CALCIFICATIONS Clinical History Nonpalpable lesion Mammographic findings: Microcalcification, suspicious Final Diagnosis A. LEFT BREAST SPECIMEN WITH CALCIFICATIONS, STEREOTACTIC BIOPSY: BREAST TISSUE WITH FIBROADENOMA AND ASSOCIATED CALCIFICATIONS B. LEFT BREAST SPECIMEN WITHOUT CALCIFICATIONS, STEREOTACTIC BIOPSY: BREAST TISSUE WITH STROMAL FIBROSIS AND CALCIFICATIONS. Electronically Signed Tatianna Sin M.D. Gross Description A. Received in formalin labeled "left breast with calcifications," is a 2.3 x 1.7 x 0.3 cm aggregate of multiple galaviz-yellow, irregular to cylindrical portions of fibroadipose tissue. The formalin is filtered and the specimen is entirely submitted in one cassette. B. Received in formalin labeled "left breast without calcifications," is a 2.8 x 2.1 x 0.3 cm aggregate of multiple galaviz-yellow, irregular to cylindrical portions of fibroadipose tissue. The formalin is filtered and the specimen is entirely submitted in one cassette. Time to formalin fixation: 5 minutes Total formalin fixation time: Approximately 6 hours. /01/22/2019 saudi01/22/2019
== END | disposition home or self-care (01) ==
LOC: FMAMMOTONE 11:42
PROVIDERS: ATTEND Internal Medicine Hematology & Oncology
PROC: 0HBU3ZX Excision of Left Breast, Percutaneous Approach, Diagnostic (ICD-10-PCS; principal; 2019-01-22)
DX: D24.2 Benign neoplasm of left breast (principal); N60.32 Fibrosclerosis of left breast; N64.89 Other specified disorders of breast; R92.1 Mammographic calcification found on diagnostic imaging of breast
CPT/HCPCS: 19081; 87899; 88305-TC; A4648

== ENCOUNTER 2019-02-03 07:15 | Day surgery (SDC) | payer OTHER | END 2019-02-03 14:40 | disposition home or self-care (01) | LOC: JONCCHEMO 07:15 → J7W 09:51 → JONCCHEMO 14:40 ==

== ENCOUNTER 2019-02-10 06:23 | Day surgery (SDC) | payer OTHER | END 2019-02-10 14:55 | disposition home or self-care (01) | LOC: JONCCHEMO 06:23 → J7W 11:38 → JONCCHEMO 14:55 ==

== ENCOUNTER 2019-02-17 07:08 | Day surgery (SDC) | payer OTHER ==
[2019-02-17] MEDS ORDERED: DEXAMETHASONE SODIUM PHOSPHATE 8 MG, ONDANSETRON INJECTION 8 MG in SODIUM CHLORIDE 100 ML IVPB ONE (09:00)
[2019-02-17] MEDS ORDERED: SODIUM CHLORIDE IVPB ONE (09:30)
[2019-02-17] MEDS ORDERED: VINORELBINE TARTRATE IVPB ONE (09:30)
[2019-02-17] MEDS ORDERED: SODIUM CHLORIDE 250 ML IV ONE (09:40)
[2019-02-17 10:46] LABS: EOS % 1.8 % (0-4.5); HEMATOCRIT 29.9 % (32.4-45.2); HEMOGLOBIN 10.3 GM/dL (10.7-15.3); MCH 34.1 pg (25.7-33.7); MCHC 34.3 g/dl (32.0-36.0); MEAN CELL VOLUME 99.3 fl (80-96); MEAN PLT VOLUME 7.4 fl (7.5-11.1); MONO % 9.1 % (3.8-10.2); NEUT % 69.1 % (42.8-82.8); PLATELET COUNT 242 K/MM3 (134-434); RBC 3.02 M/mm3 (3.60-5.2); RDW 14.3 % (11.6-15.6)
[2019-02-17 12:00] LABS: ALBUMIN 3.6 g/dl (3.4-5.0); BILIRUBIN,DIRECT 0.2 mg/dL (0.0-0.2); BILIRUBIN,TOTAL 0.7 mg/dL (0.2-1); BLOOD UREA NITROGEN 15.6 mg/dL (7-18); CREATININE 1.1 mg/dL (0.55-1.3); MAGNESIUM 1.9 mg/dL (1.8-2.4); POTASSIUM 4.1 mmol/L (3.5-5.1); TOT PROT 6.7 g/dl (6.4-8.2)
[2019-02-17 15:52] VITALS: TEMP 98.6
[2019-02-17] MEDS ORDERED: PORTA CATH FLUSH 10 ML IVPUSH ONE (15:52)
[2019-02-17 15:53] VITALS: BP 128/75; PULSE 93
== END 2019-02-17 14:15 | disposition home or self-care (01) ==
LOC: JONCCHEMO 07:08 → J7W 10:14 → JONCCHEMO 14:15
PROVIDERS: ATTEND Internal Medicine Hematology & Oncology
DX: Z51.11 Encounter for antineoplastic chemotherapy (principal); C50.919 Malignant neoplasm of unspecified site of unspecified female breast; C79.51 Secondary malignant neoplasm of bone
CPT/HCPCS: 36415; 80048; 80076; 83735; 85025; 96365; 96367; 96375; 96409; 96413; J2405; J9390

== ENCOUNTER 2019-02-24 09:01 | Day surgery (SDC) | payer OTHER ==
[2019-02-21 15:51] VITALS: BMI 27.8
[2019-02-24 09:28] LABS: BASO % 1.3 % (0-2.0); EOS % 2.3 % (0-4.5); HEMATOCRIT 25.7 % (32.4-45.2); LYMPH % 25.2 % (8-40); MCH 34.5 pg (25.7-33.7); MCHC 34.9 g/dl (32.0-36.0); MEAN CELL VOLUME 98.7 fl (80-96); MEAN PLT VOLUME 7.3 fl (7.5-11.1); MONO % 9.1 % (3.8-10.2); NEUT % 62.1 % (42.8-82.8); PLATELET COUNT 249 K/MM3 (134-434); RBC 2.61 M/mm3 (3.60-5.2); RDW 14.1 % (11.6-15.6); WHITE BLOOD COUNT 2.6 K/mm3 (4.0-10.0)
[2019-02-24 09:34] LABS: EPI CELLS 1.8 /HPF (0-5/HPF); HYALINE CASTS 2 /lpf (0-8); PH,URINE 7.5 (5.0-8.0); URINE APPEARANCE CLEAR; URINE BACTERIA 7.5 /hpf (NEGATIVE); URINE BILIRUBIN NEGATIVE (NEGATIVE); URINE COLOR YELLOW; URINE GLUCOSE (UA) NEGATIVE (NEGATIVE); URINE KETONE NEGATIVE (NEGATIVE); URINE LEUK ESTERASE TRACE (NEGATIVE); URINE NITRITE NEGATIVE (NEGATIVE); URINE PROTEIN NEGATIVE (NEGATIVE); URINE RBC 40 /hpf (0-4); URINE WBC 3 /hpf (0-5)
[2019-02-24 10:49] VITALS: TEMP 98.4
[2019-02-24] MEDS ORDERED: ACETAMINOPHEN 325 MG TABLET (FP) PO ONE (11:00)
[2019-02-24 11:01] LABS: INR 1.06 (0.83-1.09); PROTHROMBIN TIME (PATIENT) 12.5 SEC (9.7-13.0)
[2019-02-24] MEDS ORDERED: ACETAMINOPHEN 325 MG TABLET (FP) ONE (11:05)
[2019-02-24 17:40] VITALS: BP 130/75; PULSE 80
--- NOTE | 2019-02-26 17:45 | PATH ---
Cytology Non-Gynecological Report Patient Name: NAPOLEON LIEBERMAN [facility]. Rec. #: [id number] /Age/Gender: 1945 (Age: 73) / F Account: [id number] Location: [facility] Taken: 02/24/2019 Received: 02/25/2019 Reported: 02/26/2019 Physicians: Jb Batista M.D. Specimen(s) Received PELVIC CYST COLLECTION Clinical History Pelvic cyst collection Final Diagnosis PELVIC CYST COLLECTION FOR CYTOLOGY: SATISFACTORY FOR EVALUATION. NEGATIVE FOR MALIGNANT CELLS. CYSTIC LESION WITH MACROPHAGES. FEW MACROPHAGES IN A BACKGROUND OF PROTEINACEOUS MATERIAL PRESENT. Comment: History of metastatic breast carcinoma noted. Prior materials are noted. Electronically Signed Zeinab London M.D. Gross Description Approximately 50 cc of yellow fluid received fixed in 50% alcohol. One cytofunnel prepared and Pap stained. One cellblock prepared.
== END 2019-02-24 17:00 | disposition home or self-care (01) ==
LOC: JRADIR 09:01
PROVIDERS: ATTEND Internal Medicine Hematology & Oncology
PROC: 0W9G3ZX Drainage of Peritoneal Cavity, Percutaneous Approach, Diagnostic (ICD-10-PCS; principal; 2019-02-24)
DX: K66.8 Other specified disorders of peritoneum (principal)
CPT/HCPCS: 10005; 36415; 76098-TC-FY; 81003; 82565; 85025; 85610; 87070; 87075; 87205; 87899; 88108; 88305-TC

== ENCOUNTER 2019-03-03 06:40 | Day surgery (SDC) | payer OTHER ==
[2019-03-03] MEDS ORDERED: DEXAMETHASONE SODIUM PHOSPHATE IVPB ONE (10:00)
[2019-03-03] MEDS ORDERED: [UNRECOGNIZED DRUG - OTHER] IVPB ONE (10:00)
[2019-03-03] MEDS ORDERED: ONDANSETRON IVPB ONE (10:00)
[2019-03-03] MEDS ORDERED: VINORELBINE TARTRATE IVPB ONE (10:30)
[2019-03-03] MEDS ORDERED: SODIUM CHLORIDE IVPB ONE (10:30)
[2019-03-03] MEDS ORDERED: SODIUM CHLORIDE 250 ML IV ONE (10:36)
[2019-03-03 11:26] LABS: BASO % 1.2 % (0-2.0); EOS % 1.5 % (0-4.5); HEMATOCRIT 28.3 % (32.4-45.2); HEMOGLOBIN 9.7 GM/dL (10.7-15.3); LYMPH % 17.5 % (8-40); MCH 34.4 pg (25.7-33.7); MCHC 34.4 g/dl (32.0-36.0); MEAN PLT VOLUME 7.1 fl (7.5-11.1); MONO % 17.8 % (3.8-10.2); PLATELET COUNT 227 K/MM3 (134-434); RBC 2.83 M/mm3 (3.60-5.2); RDW 14.9 % (11.6-15.6); WHITE BLOOD COUNT 3.1 K/mm3 (4.0-10.0)
[2019-03-03 12:24] LABS: ALBUMIN 3.5 g/dl (3.4-5.0); BILIRUBIN,DIRECT 0.1 mg/dL (0.0-0.2); BILIRUBIN,TOTAL 0.5 mg/dL (0.2-1); BLOOD UREA NITROGEN 14.5 mg/dL (7-18); CREATININE 1.1 mg/dL (0.55-1.3); MAGNESIUM 2.1 mg/dL (1.8-2.4); POTASSIUM 4.4 mmol/L (3.5-5.1); TOT PROT 6.4 g/dl (6.4-8.2)
[2019-03-03 17:01] VITALS: PULSE 80; TEMP 97.4
[2019-03-03] MEDS ORDERED: PORTA CATH FLUSH 10 ML IVPUSH ONE (17:01)
[2019-03-03 17:02] VITALS: BP 150/76
== END 2019-03-03 14:15 | disposition home or self-care (01) ==
LOC: JONCCHEMO 06:40 → J7W 10:16 → JONCCHEMO 14:15
PROVIDERS: ATTEND Internal Medicine Hematology & Oncology
DX: Z51.11 Encounter for antineoplastic chemotherapy (principal); C50.919 Malignant neoplasm of unspecified site of unspecified female breast; C79.51 Secondary malignant neoplasm of bone
CPT/HCPCS: 36415; 80048; 80061; 80076; 82378; 83615; 83721; 83735; 85025; 86300; 96375; 96409; 96413; J9390

== ENCOUNTER 2019-03-10 08:12 | Day surgery (SDC) | payer OTHER ==
[2019-03-10] MEDS ORDERED: DEXAMETHASONE SODIUM PHOSPHATE 8 MG, ONDANSETRON INJECTION 8 MG in SODIUM CHLORIDE 100 ML IVPB ONE (10:00)
[2019-03-10] MEDS ORDERED: SODIUM CHLORIDE IVPB ONE (10:30)
[2019-03-10] MEDS ORDERED: VINORELBINE TARTRATE IVPB ONE (10:30)
[2019-03-10] MEDS ORDERED: SODIUM CHLORIDE 250 ML IV ONE (11:00)
[2019-03-10 11:36] LABS: BASO % 0.5 % (0-2.0); EOS % 1.2 % (0-4.5); HEMATOCRIT 28.4 % (32.4-45.2); HEMOGLOBIN 9.8 GM/dL (10.7-15.3); LYMPH % 12.6 % (8-40); MCH 34.5 pg (25.7-33.7); MCHC 34.7 g/dl (32.0-36.0); MEAN CELL VOLUME 99.5 fl (80-96); MEAN PLT VOLUME 7.1 fl (7.5-11.1); MONO % 6.1 % (3.8-10.2); NEUT % 79.6 % (42.8-82.8); PLATELET COUNT 238 K/MM3 (134-434); RBC 2.86 M/mm3 (3.60-5.2); RDW 15.1 % (11.6-15.6); WHITE BLOOD COUNT 6.3 K/mm3 (4.0-10.0)
[2019-03-10 11:59] LABS: ALBUMIN 3.7 g/dl (3.4-5.0); BILIRUBIN,DIRECT 0.2 mg/dL (0.0-0.2); BILIRUBIN,TOTAL 0.5 mg/dL (0.2-1); BLOOD UREA NITROGEN 17.6 mg/dL (7-18); CALCIUM 9.3 mg/dL (8.5-10.1); CREATININE 1.2 mg/dL (0.55-1.3); POTASSIUM 4.1 mmol/L (3.5-5.1); TOT PROT 6.4 g/dl (6.4-8.2)
[2019-03-10 12:43] LABS: EPI CELLS 1.1 /HPF (0-5/HPF); HYALINE CASTS 1 /lpf (0-8); PH,URINE 7.5 (5.0-8.0); URINE APPEARANCE CLEAR; URINE BACTERIA 5.9 /hpf (NEGATIVE); URINE BILIRUBIN NEGATIVE (NEGATIVE); URINE COLOR DK YELLOW; URINE GLUCOSE (UA) NEGATIVE (NEGATIVE); URINE KETONE NEGATIVE (NEGATIVE); URINE LEUK ESTERASE NEGATIVE (NEGATIVE); URINE NITRITE NEGATIVE (NEGATIVE); URINE PROTEIN NEGATIVE (NEGATIVE); URINE RBC 12 /hpf (0-4); URINE UROBILINOGEN 0.2 mg/dL (0.2-1.0); URINE WBC 2 /hpf (0-5)
[2019-03-10 14:34] VITALS: TEMP 98.4
[2019-03-10 14:45] VITALS: BP 140/80; PULSE 85
[2019-03-10] MEDS ORDERED: PORTA CATH FLUSH 10 ML IVPUSH ONE (14:45)
== END 2019-03-10 13:30 | disposition home or self-care (01) ==
LOC: JONCCHEMO 08:12 → J7W 10:32 → JONCCHEMO 13:30
PROVIDERS: ATTEND Internal Medicine Hematology & Oncology
DX: Z51.11 Encounter for antineoplastic chemotherapy (principal); C50.919 Malignant neoplasm of unspecified site of unspecified female breast; C79.51 Secondary malignant neoplasm of bone
CPT/HCPCS: 36415; 80048; 80076; 81003; 83735; 85025; 87077; 87086; 96365; 96367; 96375; 96409; 96413; J2405; J9390

== ENCOUNTER 2019-03-17 07:06 | Day surgery (SDC) | payer OTHER ==
[2019-03-17] MEDS ORDERED: DEXAMETHASONE SODIUM PHOSPHATE 8 MG, ONDANSETRON INJECTION 8 MG in SODIUM CHLORIDE 100 ML IVPB ONE (10:00)
[2019-03-17] MEDS ORDERED: SODIUM CHLORIDE IVPB ONE (10:30)
[2019-03-17] MEDS ORDERED: VINORELBINE TARTRATE IVPB ONE (10:30)
[2019-03-17 10:38] LABS: BASO % 1.2 % (0-2.0); EOS % 3.4 % (0-4.5); HEMATOCRIT 25.8 % (32.4-45.2); HEMOGLOBIN 8.9 GM/dL (10.7-15.3); LYMPH % 21.5 % (8-40); MCH 34.4 pg (25.7-33.7); MCHC 34.5 g/dl (32.0-36.0); MEAN CELL VOLUME 99.7 fl (80-96); MEAN PLT VOLUME 7.3 fl (7.5-11.1); MONO % 7.9 % (3.8-10.2); PLATELET COUNT 204 K/MM3 (134-434); RBC 2.59 M/mm3 (3.60-5.2); RDW 15.1 % (11.6-15.6); WHITE BLOOD COUNT 2.5 K/mm3 (4.0-10.0)
[2019-03-17] MEDS ORDERED: SODIUM CHLORIDE 250 ML IV ONE (10:40)
[2019-03-17 11:05] LABS: ALBUMIN 3.4 g/dl (3.4-5.0); BILIRUBIN,DIRECT 0.2 mg/dL (0.0-0.2); BILIRUBIN,TOTAL 0.4 mg/dL (0.2-1); CALCIUM 9.2 mg/dL (8.5-10.1); CREATININE 1.1 mg/dL (0.55-1.3); MAGNESIUM 1.8 mg/dL (1.8-2.4); POTASSIUM 3.9 mmol/L (3.5-5.1)
[2019-03-17 15:43] VITALS: TEMP 98.8
[2019-03-17] MEDS ORDERED: PORTA CATH FLUSH 10 ML IVPUSH ONE (15:43)
[2019-03-17 15:48] VITALS: BP 136/72; PULSE 80
== END 2019-03-17 13:30 | disposition home or self-care (01) ==
LOC: JONCCHEMO 07:06 → J7W 10:04 → JONCCHEMO 13:30
PROVIDERS: ATTEND Internal Medicine Hematology & Oncology
PROC: 3E04305 Introduction of Other Antineoplastic into Central Vein, Percutaneous Approach (ICD-10-PCS; principal; 2019-03-17)
PROC: 3E043GC Introduction of Other Therapeutic Substance into Central Vein, Percutaneous Approach (ICD-10-PCS; 2019-03-17)
DX: Z51.11 Encounter for antineoplastic chemotherapy (principal); C50.919 Malignant neoplasm of unspecified site of unspecified female breast; C79.51 Secondary malignant neoplasm of bone
CPT/HCPCS: 36415; 80048; 80076; 83735; 85025; 96365; 96367; 96375; 96409; 96413; J9390

== ENCOUNTER 2019-03-18 07:23 | Day surgery (SDC) | payer OTHER ==
[2019-03-18] MEDS ORDERED: TBO-FILGRASTIM 480 MCG/0.8 ML DISP.SYRIN SQ ONE (12:00)
[2019-03-18 17:47] VITALS: BP 132/79; PULSE 81; TEMP 97.2
== END 2019-03-18 12:30 | disposition home or self-care (01) ==
LOC: JONCCHEMO 07:23 → J7W 10:58 → JONCCHEMO 12:30
PROVIDERS: ATTEND Internal Medicine Hematology & Oncology
PROC: 3E013GC Introduction of Other Therapeutic Substance into Subcutaneous Tissue, Percutaneous Approach (ICD-10-PCS; principal; 2019-03-18)
DX: C50.919 Malignant neoplasm of unspecified site of unspecified female breast (principal); Z76.89 Persons encountering health services in other specified circumstances
CPT/HCPCS: J1447

== ENCOUNTER 2019-03-31 07:35 | Day surgery (SDC) | payer OTHER ==
[2019-03-31] MEDS ORDERED: DEXAMETHASONE SODIUM PHOSPHATE 8 MG, ONDANSETRON INJECTION 8 MG in SODIUM CHLORIDE 100 ML IVPB ONE (09:30)
[2019-03-31] MEDS ORDERED: VINORELBINE TARTRATE IVPB ONE (10:00)
[2019-03-31] MEDS ORDERED: SODIUM CHLORIDE IVPB ONE (10:00)
[2019-03-31] MEDS ORDERED: SODIUM CHLORIDE 250 ML IV ONE (10:10)
[2019-03-31 10:32] LABS: BASO % 0.9 % (0-2.0); EOS % 0.7 % (0-4.5); HEMATOCRIT 27.7 % (32.4-45.2); HEMOGLOBIN 9.6 GM/dL (10.7-15.3); LYMPH % 11.9 % (8-40); MCH 34.4 pg (25.7-33.7); MCHC 34.6 g/dl (32.0-36.0); MEAN CELL VOLUME 99.4 fl (80-96); MEAN PLT VOLUME 6.8 fl (7.5-11.1); MONO % 9.8 % (3.8-10.2); NEUT % 76.7 % (42.8-82.8); PLATELET COUNT 255 K/MM3 (134-434); RBC 2.78 M/mm3 (3.60-5.2); RDW 16.5 % (11.6-15.6); WHITE BLOOD COUNT 5.8 K/mm3 (4.0-10.0)
[2019-03-31 11:02] LABS: ALBUMIN 3.6 g/dl (3.4-5.0); BILIRUBIN,DIRECT 0.2 mg/dL (0.0-0.2); BILIRUBIN,TOTAL 0.5 mg/dL (0.2-1); BLOOD UREA NITROGEN 22.3 mg/dL (7-18); CALCIUM 9.1 mg/dL (8.5-10.1); CREATININE 1.1 mg/dL (0.55-1.3); POTASSIUM 4.2 mmol/L (3.5-5.1); TOT PROT 6.3 g/dl (6.4-8.2)
[2019-03-31 15:35] VITALS: BP 162/86; PULSE 92; TEMP 98.8
[2019-03-31] MEDS ORDERED: PORTA CATH FLUSH 10 ML IVPUSH ONE (15:36)
== END 2019-03-31 12:30 | disposition home or self-care (01) ==
LOC: JONCCHEMO 07:35 → J7W 10:04 → JONCCHEMO 12:30
PROVIDERS: ATTEND Internal Medicine Hematology & Oncology
DX: Z51.11 Encounter for antineoplastic chemotherapy (principal); C50.919 Malignant neoplasm of unspecified site of unspecified female breast
CPT/HCPCS: 36415; 80048; 80076; 83735; 85025; 96365; 96367; 96375; 96409; 96413; J2405; J9390

== ENCOUNTER 2019-04-07 06:46 | Day surgery (SDC) | payer OTHER ==
[2019-04-07] MEDS ORDERED: DEXAMETHASONE SODIUM PHOSPHATE 8 MG, ONDANSETRON INJECTION 8 MG in SODIUM CHLORIDE 100 ML IVPB ONE (09:30)
[2019-04-07] MEDS ORDERED: SODIUM CHLORIDE IVPB ONE (10:00)
[2019-04-07] MEDS ORDERED: VINORELBINE TARTRATE IVPB ONE (10:00)
[2019-04-07] MEDS ORDERED: SODIUM CHLORIDE 250 ML IV ONE (10:10)
[2019-04-07 11:17] LABS: BASO % 0.5 % (0-2.0); EOS % 0.9 % (0-4.5); HEMATOCRIT 27.6 % (32.4-45.2); HEMOGLOBIN 9.6 GM/dL (10.7-15.3); LYMPH % 10.9 % (8-40); MCH 34.7 pg (25.7-33.7); MCHC 34.8 g/dl (32.0-36.0); MEAN CELL VOLUME 99.7 fl (80-96); MEAN PLT VOLUME 6.7 fl (7.5-11.1); MONO % 6.4 % (3.8-10.2); NEUT % 81.3 % (42.8-82.8); PLATELET COUNT 226 K/MM3 (134-434); RBC 2.77 M/mm3 (3.60-5.2); RDW 16.5 % (11.6-15.6); WHITE BLOOD COUNT 5.5 K/mm3 (4.0-10.0)
[2019-04-07 11:44] LABS: ALBUMIN 3.5 g/dl (3.4-5.0); BILIRUBIN,DIRECT 0.2 mg/dL (0.0-0.2); BILIRUBIN,TOTAL 0.6 mg/dL (0.2-1); BLOOD UREA NITROGEN 21.6 mg/dL (7-18); CALCIUM 9.2 mg/dL (8.5-10.1); CREATININE 1.1 mg/dL (0.55-1.3); MAGNESIUM 1.8 mg/dL (1.8-2.4); POTASSIUM 4.1 mmol/L (3.5-5.1); TOT PROT 6.2 g/dl (6.4-8.2)
[2019-04-07 14:19] VITALS: TEMP 97.8
[2019-04-07] MEDS ORDERED: PORTA CATH FLUSH 10 ML IVPUSH ONE (14:19)
[2019-04-07 14:20] VITALS: BP 121/96; PULSE 99
== END 2019-04-07 14:22 | disposition home or self-care (01) ==
LOC: JONCCHEMO 06:46 → J7W 10:16 → JONCCHEMO 14:22
PROVIDERS: ATTEND Internal Medicine Hematology & Oncology
DX: Z51.11 Encounter for antineoplastic chemotherapy (principal); C50.919 Malignant neoplasm of unspecified site of unspecified female breast
CPT/HCPCS: 36415; 80048; 80076; 83735; 85025; 96367; 96375; 96409; 96413; J2405; J9390

== ENCOUNTER 2019-04-14 07:29 | Day surgery (SDC) | payer OTHER ==
[2019-04-14] MEDS ORDERED: DEXAMETHASONE SODIUM PHOSPHATE 8 MG, ONDANSETRON INJECTION 8 MG in SODIUM CHLORIDE 100 ML IVPB ONE (09:30)
[2019-04-14] MEDS ORDERED: VINORELBINE TARTRATE IVPB ONE (10:00)
[2019-04-14] MEDS ORDERED: SODIUM CHLORIDE IVPB ONE (10:00)
[2019-04-14] MEDS ORDERED: SODIUM CHLORIDE 250 ML IV ONE (10:15)
[2019-04-14 12:50] LABS: BASO % 1.3 % (0-2.0); EOS % 2.9 % (0-4.5); HEMATOCRIT 27.4 % (32.4-45.2); HEMOGLOBIN 9.5 GM/dL (10.7-15.3); LYMPH % 16.4 % (8-40); MCH 34.7 pg (25.7-33.7); MCHC 34.8 g/dl (32.0-36.0); MEAN CELL VOLUME 99.7 fl (80-96); MEAN PLT VOLUME 7.2 fl (7.5-11.1); MONO % 8.6 % (3.8-10.2); NEUT % 70.8 % (42.8-82.8); PLATELET COUNT 260 K/MM3 (134-434); RBC 2.75 M/mm3 (3.60-5.2); RDW 16.7 % (11.6-15.6)
[2019-04-14 13:21] LABS: ALBUMIN 3.5 g/dl (3.4-5.0); BILIRUBIN,DIRECT 0.2 mg/dL (0.0-0.2); BILIRUBIN,TOTAL 0.5 mg/dL (0.2-1); BLOOD UREA NITROGEN 22.4 mg/dL (7-18); CALCIUM 9.4 mg/dL (8.5-10.1); CREATININE 1.1 mg/dL (0.55-1.3); TOT PROT 6.1 g/dl (6.4-8.2)
[2019-04-14 19:00] VITALS: TEMP 98.3
[2019-04-14 19:04] VITALS: BP 154/88; PULSE 88
[2019-04-14] MEDS ORDERED: PORTA CATH FLUSH 10 ML IVPUSH ONE (19:04)
== END 2019-04-14 16:00 | disposition home or self-care (01) ==
LOC: JONCCHEMO 07:29 → J7W 10:49 → JONCCHEMO 16:00
PROVIDERS: ATTEND Internal Medicine Hematology & Oncology
PROC: 3E04305 Introduction of Other Antineoplastic into Central Vein, Percutaneous Approach (ICD-10-PCS; principal; 2019-04-14)
PROC: 3E043GC Introduction of Other Therapeutic Substance into Central Vein, Percutaneous Approach (ICD-10-PCS; 2019-04-14)
DX: C50.919 Malignant neoplasm of unspecified site of unspecified female breast (principal); C79.51 Secondary malignant neoplasm of bone
CPT/HCPCS: 36415; 80048; 80053; 80076; 82378; 83735; 85025; 86300; 96365; 96367; 96375; 96409; 96413; J2405; J9390

== ENCOUNTER 2019-05-05 05:49 | Day surgery (SDC) | payer OTHER ==
[2019-05-05] MEDS ORDERED: DEXAMETHASONE SODIUM PHOSPHATE 8 MG, ONDANSETRON INJECTION 8 MG in SODIUM CHLORIDE 100 ML IVPB ONE (10:00)
[2019-05-05 10:16] LABS: BASO % 0.3 % (0-2.0); EOS % 0.6 % (0-4.5); HEMATOCRIT 29.3 % (32.4-45.2); LYMPH % 8.1 % (8-40); MCH 34.6 pg (25.7-33.7); MCHC 34.1 g/dl (32.0-36.0); MEAN CELL VOLUME 101.3 fl (80-96); MEAN PLT VOLUME 6.5 fl (7.5-11.1); MONO % 7.5 % (3.8-10.2); NEUT % 83.5 % (42.8-82.8); PLATELET COUNT 209 K/MM3 (134-434); RBC 2.89 M/mm3 (3.60-5.2); RDW 16.7 % (11.6-15.6); WHITE BLOOD COUNT 5.7 K/mm3 (4.0-10.0)
[2019-05-05] MEDS ORDERED: SODIUM CHLORIDE IVPB ONE (10:30)
[2019-05-05] MEDS ORDERED: VINORELBINE TARTRATE IVPB ONE (10:30)
[2019-05-05] MEDS ORDERED: SODIUM CHLORIDE 250 ML IV ONE (10:40)
[2019-05-05 10:49] LABS: ALBUMIN 3.4 g/dl (3.4-5.0); BILIRUBIN,DIRECT 0.2 mg/dL (0.0-0.2); BILIRUBIN,TOTAL 0.6 mg/dL (0.2-1); BLOOD UREA NITROGEN 24.6 mg/dL (7-18); CALCIUM 8.8 mg/dL (8.5-10.1); CREATININE 1.2 mg/dL (0.55-1.3); MAGNESIUM 1.8 mg/dL (1.8-2.4); POTASSIUM 4.1 mmol/L (3.5-5.1); TOT PROT 6.2 g/dl (6.4-8.2)
[2019-05-05 16:29] VITALS: TEMP 98
[2019-05-05] MEDS ORDERED: PORTA CATH FLUSH 10 ML IVPUSH ONE (16:44)
[2019-05-05 16:45] VITALS: BP 163/94; PULSE 78
== END 2019-05-05 14:30 | disposition home or self-care (01) ==
LOC: JONCCHEMO 05:49 → J7W 11:38 → JONCCHEMO 14:30
PROVIDERS: ATTEND Internal Medicine Hematology & Oncology
DX: Z51.11 Encounter for antineoplastic chemotherapy (principal); C50.919 Malignant neoplasm of unspecified site of unspecified female breast; C79.51 Secondary malignant neoplasm of bone
CPT/HCPCS: 36415; 80048; 80076; 83735; 85025; 96367; 96375; 96409; 96413; J2405; J9390

== ENCOUNTER 2019-05-12 06:16 | Day surgery (SDC) | payer OTHER ==
[2019-05-12 09:32] LABS: BASO % 0.6 % (0-2.0); EOS % 1.9 % (0-4.5); HEMATOCRIT 28.8 % (32.4-45.2); LYMPH % 12.6 % (8-40); MCH 34.7 pg (25.7-33.7); MCHC 34.6 g/dl (32.0-36.0); MEAN CELL VOLUME 100.3 fl (80-96); MEAN PLT VOLUME 6.9 fl (7.5-11.1); MONO % 5.1 % (3.8-10.2); NEUT % 79.8 % (42.8-82.8); PLATELET COUNT 218 K/MM3 (134-434); RBC 2.87 M/mm3 (3.60-5.2); RDW 16.4 % (11.6-15.6); WHITE BLOOD COUNT 4.8 K/mm3 (4.0-10.0)
[2019-05-12] MEDS ORDERED: DEXAMETHASONE SODIUM PHOSPHATE 8 MG, ONDANSETRON INJECTION 8 MG in SODIUM CHLORIDE 100 ML IVPB ONE (10:00)
[2019-05-12 10:02] LABS: ALBUMIN 3.4 g/dl (3.4-5.0); BILIRUBIN,DIRECT 0.2 mg/dL (0.0-0.2); BILIRUBIN,TOTAL 0.4 mg/dL (0.2-1); BLOOD UREA NITROGEN 20.6 mg/dL (7-18); CALCIUM 9.5 mg/dL (8.5-10.1); CREATININE 1.2 mg/dL (0.55-1.3); MAGNESIUM 1.7 mg/dL (1.8-2.4); POTASSIUM 4.3 mmol/L (3.5-5.1); TOT PROT 6.1 g/dl (6.4-8.2)
[2019-05-12] MEDS ORDERED: MAGNESIUM OXIDE 400 MG TABLET (FP) PO ONE (10:06)
[2019-05-12] MEDS ORDERED: SODIUM CHLORIDE 250 ML IV ONE (10:30)
[2019-05-12] MEDS ORDERED: VINORELBINE TARTRATE IVPB ONE (10:30)
[2019-05-12] MEDS ORDERED: SODIUM CHLORIDE IVPB ONE (10:30)
[2019-05-12] MEDS ORDERED: PORTA CATH FLUSH 10 ML IVPUSH ONE (17:40)
[2019-05-12 17:41] VITALS: BP 177/97; PULSE 82
[2019-05-12 17:43] VITALS: TEMP 99
== END 2019-05-12 13:15 | disposition home or self-care (01) ==
LOC: JONCCHEMO 06:16 → J7W 10:34 → JONCCHEMO 13:15
PROVIDERS: ATTEND Internal Medicine Hematology & Oncology
DX: Z51.11 Encounter for antineoplastic chemotherapy (principal); C50.919 Malignant neoplasm of unspecified site of unspecified female breast; C79.51 Secondary malignant neoplasm of bone
CPT/HCPCS: 36415; 80048; 80076; 83735; 85025; 96367; 96375; 96409; 96413; J9390

== ENCOUNTER 2019-05-19 05:56 | Day surgery (SDC) | payer OTHER ==
[2019-05-19] MEDS ORDERED: DEXAMETHASONE SODIUM PHOSPHATE 8 MG, ONDANSETRON INJECTION 8 MG in SODIUM CHLORIDE 100 ML IVPB ONE (10:00)
[2019-05-19] MEDS ORDERED: MAGNESIUM OXIDE 400 MG TABLET (FP) PO ONE (10:18)
[2019-05-19] MEDS ORDERED: SODIUM CHLORIDE 250 ML IV ONE (10:30)
[2019-05-19] MEDS ORDERED: SODIUM CHLORIDE IVPB ONE (10:30)
[2019-05-19] MEDS ORDERED: VINORELBINE TARTRATE IVPB ONE (10:30)
[2019-05-19] MEDS ORDERED: ACETAMINOPHEN 500 MG TABLET (FP) PO ONE (10:45)
[2019-05-19 11:21] LABS: BASO % 0.9 % (0-2.0); EOS % 1.1 % (0-4.5); HEMATOCRIT 30.5 % (32.4-45.2); HEMOGLOBIN 10.5 GM/dL (10.7-15.3); MCHC 34.3 g/dl (32.0-36.0); MEAN CELL VOLUME 99.1 fl (80-96); MEAN PLT VOLUME 7.1 fl (7.5-11.1); MONO % 9.5 % (3.8-10.2); NEUT % 76.5 % (42.8-82.8); PLATELET COUNT 275 K/MM3 (134-434); RBC 3.08 M/mm3 (3.60-5.2); RDW 15.9 % (11.6-15.6); WHITE BLOOD COUNT 3.1 K/mm3 (4.0-10.0)
[2019-05-19 11:50] LABS: ALBUMIN 3.7 g/dl (3.4-5.0); BILIRUBIN,DIRECT 0.2 mg/dL (0.0-0.2); BILIRUBIN,TOTAL 0.6 mg/dL (0.2-1); BLOOD UREA NITROGEN 17.6 mg/dL (7-18); CALCIUM 10.1 mg/dL (8.5-10.1); CREATININE 1.1 mg/dL (0.55-1.3); MAGNESIUM 1.8 mg/dL (1.8-2.4); TOT PROT 6.6 g/dl (6.4-8.2)
[2019-05-19 15:36] VITALS: BP 172/88; PULSE 81
[2019-05-19] MEDS ORDERED: PORTA CATH FLUSH 10 ML IVPUSH ONE (15:36)
[2019-05-20 05:07] LABS: CARCINOEMBRYONIC ANTIGEN 41.4 ng/mL (0.0-4.7)
== END 2019-05-19 14:30 | disposition home or self-care (01) ==
LOC: JONCCHEMO 05:56 → J7W 10:35 → JONCCHEMO 14:30
PROVIDERS: ATTEND Internal Medicine Hematology & Oncology
DX: Z51.11 Encounter for antineoplastic chemotherapy (principal); C50.919 Malignant neoplasm of unspecified site of unspecified female breast; C79.51 Secondary malignant neoplasm of bone
CPT/HCPCS: 36415; 80048; 80076; 82378; 83735; 85025; 86300; 96367; 96375; 96409; 96413; J9390

== ENCOUNTER 2019-06-02 07:21 | Day surgery (SDC) | payer OTHER ==
[2019-06-02] MEDS ORDERED: DEXAMETHASONE SODIUM PHOSPHATE 8 MG, ONDANSETRON INJECTION 8 MG in SODIUM CHLORIDE 100 ML IVPB ONE (09:30)
[2019-06-02] MEDS ORDERED: VINORELBINE TARTRATE IVPB ONE (10:00)
[2019-06-02] MEDS ORDERED: SODIUM CHLORIDE IVPB ONE (10:00)
[2019-06-02] MEDS ORDERED: SODIUM CHLORIDE 250 ML IV ONE (10:07)
[2019-06-02 12:26] LABS: BASO % 0.9 % (0-2.0); EOS % 0.9 % (0-4.5); HEMATOCRIT 29.2 % (32.4-45.2); LYMPH % 16.4 % (8-40); MCH 33.8 pg (25.7-33.7); MCHC 34.3 g/dl (32.0-36.0); MEAN CELL VOLUME 98.7 fl (80-96); MONO % 20.2 % (3.8-10.2); NEUT % 61.6 % (42.8-82.8); PLATELET COUNT 276 K/MM3 (134-434); RBC 2.96 M/mm3 (3.60-5.2); WHITE BLOOD COUNT 3.4 K/mm3 (4.0-10.0)
[2019-06-02 12:56] LABS: ALBUMIN 3.5 g/dl (3.4-5.0); BILIRUBIN,TOTAL 0.6 mg/dL (0.2-1); CREATININE 1.3 mg/dL (0.55-1.3); MAGNESIUM 1.7 mg/dL (1.8-2.4); POTASSIUM 3.6 mmol/L (3.5-5.1); TOT PROT 6.4 g/dl (6.4-8.2)
[2019-06-02 14:57] LABS: ANISOCYTOSIS 1+; MACROCYTOSIS 0; OVALOCYTE 1+; PLATELET ESTIMATE NORMAL; TEAR DROP CELLS 1+
[2019-06-02 16:53] VITALS: BP 137/75; PULSE 100; TEMP 98.5
[2019-06-03 05:07] LABS: CARCINOEMBRYONIC ANTIGEN 42.1 ng/mL (0.0-4.7)
== END 2019-06-02 14:40 | disposition home or self-care (01) ==
LOC: JONCCHEMO 07:21 → J7W 11:39 → JONCCHEMO 14:40
PROVIDERS: ATTEND Internal Medicine Hematology & Oncology
PROC: 3E04305 Introduction of Other Antineoplastic into Central Vein, Percutaneous Approach (ICD-10-PCS; principal; 2019-06-02)
PROC: 3E043GC Introduction of Other Therapeutic Substance into Central Vein, Percutaneous Approach (ICD-10-PCS; 2019-06-02)
DX: Z51.11 Encounter for antineoplastic chemotherapy (principal); C50.919 Malignant neoplasm of unspecified site of unspecified female breast; C79.51 Secondary malignant neoplasm of bone
CPT/HCPCS: 36415; 80053; 82378; 83735; 85025; 86300; 96365; 96367; 96375; 96409; 96413; J2405; J9390

== ENCOUNTER 2019-06-09 06:50 | Day surgery (SDC) | payer OTHER ==
[2019-06-09] MEDS ORDERED: DEXAMETHASONE SODIUM PHOSPHATE 8 MG, ONDANSETRON INJECTION 8 MG in SODIUM CHLORIDE 100 ML IVPB ONE (09:30)
[2019-06-09] MEDS ORDERED: VINORELBINE TARTRATE IVPB ONE (10:00)
[2019-06-09] MEDS ORDERED: SODIUM CHLORIDE IVPB ONE (10:00)
[2019-06-09] MEDS ORDERED: SODIUM CHLORIDE 250 ML IV ONE (10:10)
[2019-06-09 13:22] LABS: BASO % 0.8 % (0-2.0); EOS % 1.5 % (0-4.5); HEMATOCRIT 28.8 % (32.4-45.2); HEMOGLOBIN 9.6 GM/dL (10.7-15.3); LYMPH % 12.1 % (8-40); MCHC 33.2 g/dl (32.0-36.0); MEAN CELL VOLUME 99.4 fl (80-96); NEUT % 78.6 % (42.8-82.8); PLATELET COUNT 231 K/MM3 (134-434); WHITE BLOOD COUNT 4.7 K/mm3 (4.0-10.0)
[2019-06-09 13:41] LABS: ALBUMIN 2.3 g/dl (3.4-5.0); BILIRUBIN,TOTAL 0.4 mg/dL (0.2-1); BLOOD UREA NITROGEN 11.9 mg/dL (7-18); CREATININE 0.7 mg/dL (0.55-1.3); MAGNESIUM 1.3 mg/dL (1.8-2.4); POTASSIUM 3.1 mmol/L (3.5-5.1); TOT PROT 4.5 g/dl (6.4-8.2)
[2019-06-09] MEDS ORDERED: MAGNESIUM SULF 50% (8.12 MEQ/2 ML-1 GM VIAL) IVPB ONE (13:55)
[2019-06-09] MEDS ORDERED: POTASSIUM CHLORIDE 20 MEQ PREMIX IVPB 100 ML IVPB ONE (13:55)
[2019-06-09 14:26] LABS: CALCIUM 6.6 mg/dL (8.5-10.1)
[2019-06-09] MEDS: KCL 10 MEQ IVPB 10 MEQ/100 ML INFUS.BAG IVPB SCH ×2 (16:27→17:27)
[2019-06-09 17:35] VITALS: BP 147/87; PULSE 95; TEMP 98.4
[2019-06-09] MEDS ORDERED: PORTA CATH FLUSH 10 ML IVPUSH ONE (17:54)
== END 2019-06-09 18:50 | disposition home or self-care (01) ==
LOC: JONCCHEMO 06:50 → J7W 11:46 → JONCCHEMO 18:50
PROVIDERS: ATTEND Internal Medicine Hematology & Oncology
PROC: 3E04305 Introduction of Other Antineoplastic into Central Vein, Percutaneous Approach (ICD-10-PCS; principal; 2019-06-09)
PROC: 3E043GC Introduction of Other Therapeutic Substance into Central Vein, Percutaneous Approach (ICD-10-PCS; 2019-06-09)
PROC: 3E0437Z Introduction of Electrolytic and Water Balance Substance into Central Vein, Percutaneous Approach (ICD-10-PCS; 2019-06-09)
DX: Z51.11 Encounter for antineoplastic chemotherapy (principal); C50.311 Malignant neoplasm of lower-inner quadrant of right female breast; Z17.0 Estrogen receptor positive status [ER+]; C79.51 Secondary malignant neoplasm of bone; D70.1 Agranulocytosis secondary to cancer chemotherapy
CPT/HCPCS: 36415; 80053; 83735; 85025; 96361; 96366; 96367; 96375; 96409; 96413; 96417; J2405; J9390

== ENCOUNTER → 2019-06-16 | Day surgery (SDC) | payer OTHER ==
[~2019-06-16] MED LIST changes: +DEXAMETHASONE SODIUM PHOSPHATE 8 MG, ONDANSETRON INJECTION 8 MG in SODIUM CHLORIDE 100 ML IVPB ONE; +SODIUM CHLORIDE 250 ML IV ONE; +SODIUM CHLORIDE IVPB ONE; +VINORELBINE TARTRATE IVPB ONE; -ceFAZolin SODIUM 1 GM VIAL IVPB ONE
[2019-06-16 10:51] VITALS: BP 144/86; PULSE 106; TEMP 98.1
[2019-06-16 11:26] LABS: BASO % 1.3 % (0-2.0); EOS % 3.4 % (0-4.5); HEMOGLOBIN 9.8 GM/dL (10.7-15.3); LYMPH % 18.9 % (8-40); MCH 33.4 pg (25.7-33.7); MEAN CELL VOLUME 98.4 fl (80-96); MEAN PLT VOLUME 7.1 fl (7.5-11.1); MONO % 11.7 % (3.8-10.2); NEUT % 64.7 % (42.8-82.8); PLATELET COUNT 220 K/MM3 (134-434); RBC 2.94 M/mm3 (3.60-5.2); RDW 16.5 % (11.6-15.6); WHITE BLOOD COUNT 2.7 K/mm3 (4.0-10.0)
[2019-06-16 11:58] LABS: ALBUMIN 3.5 g/dl (3.4-5.0); BILIRUBIN,TOTAL 0.8 mg/dL (0.2-1); BLOOD UREA NITROGEN 15.5 mg/dL (7-18); CALCIUM 9.3 mg/dL (8.5-10.1); CREATININE 1.3 mg/dL (0.55-1.3); MAGNESIUM 1.6 mg/dL (1.8-2.4); TOT PROT 6.3 g/dl (6.4-8.2)
== END | disposition home or self-care (01) ==
LOC: JONCCHEMO 07:21
PROVIDERS: ATTEND Internal Medicine Hematology & Oncology
DX: Z53.8 Procedure and treatment not carried out for other reasons (principal)
CPT/HCPCS: 36415; 80053; 83735; 85025; 96365

== ENCOUNTER 2019-06-20 06:03 | Day surgery (SDC) | payer OTHER ==
[2019-06-20] MEDS ORDERED: DEXAMETHASONE SODIUM PHOSPHATE 8 MG, ONDANSETRON INJECTION 8 MG in SODIUM CHLORIDE 100 ML IVPB ONE (09:30)
[2019-06-20] MEDS ORDERED: VINORELBINE TARTRATE IVPB ONE (10:00)
[2019-06-20] MEDS ORDERED: SODIUM CHLORIDE IVPB ONE (10:00)
[2019-06-20] MEDS ORDERED: SODIUM CHLORIDE 250 ML IV ONE (10:10)
[2019-06-20 12:02] LABS: BASO % 0.5 % (0-2.0); EOS % 3.6 % (0-4.5); HEMATOCRIT 26.4 % (32.4-45.2); LYMPH % 20.4 % (8-40); MCH 33.4 pg (25.7-33.7); MEAN CELL VOLUME 98.4 fl (80-96); MONO % 14.8 % (3.8-10.2); NEUT % 60.7 % (42.8-82.8); PLATELET COUNT 246 K/MM3 (134-434); RBC 2.68 M/mm3 (3.60-5.2); RDW 16.9 % (11.6-15.6); WHITE BLOOD COUNT 3.3 K/mm3 (4.0-10.0)
[2019-06-20 12:33] LABS: ALBUMIN 3.2 g/dl (3.4-5.0); BILIRUBIN,TOTAL 0.3 mg/dL (0.2-1); CALCIUM 8.7 mg/dL (8.5-10.1); CREATININE 1.1 mg/dL (0.55-1.3); MAGNESIUM 1.6 mg/dL (1.8-2.4); POTASSIUM 3.9 mmol/L (3.5-5.1); TOT PROT 5.7 g/dl (6.4-8.2)
[2019-06-20] MEDS ORDERED: PT OWN MED DRAWER 7, Y5N ONE (12:54)
[2019-06-20] MEDS: MAGNESIUM 1GM/D5W - 1 GM/100 ML IVPB IVPB SCH ×2 (12:55→14:45)
[2019-06-20 13:25] VITALS: TEMP 98
[2019-06-20] MEDS ORDERED: PORTA CATH FLUSH 10 ML IVPUSH ONE (13:32)
[2019-06-20 17:40] VITALS: BP 160/93; PULSE 93
== END 2019-06-20 16:00 | disposition home or self-care (01) ==
LOC: JONCCHEMO 06:03 → J7W 11:17 → JONCCHEMO 16:00
PROVIDERS: ATTEND Internal Medicine Hematology & Oncology
PROC: 3E04305 Introduction of Other Antineoplastic into Central Vein, Percutaneous Approach (ICD-10-PCS; principal; 2019-06-20)
PROC: 3E043GC Introduction of Other Therapeutic Substance into Central Vein, Percutaneous Approach (ICD-10-PCS; 2019-06-20)
DX: Z51.11 Encounter for antineoplastic chemotherapy (principal); C50.311 Malignant neoplasm of lower-inner quadrant of right female breast; Z17.0 Estrogen receptor positive status [ER+]; C79.51 Secondary malignant neoplasm of bone; D70.1 Agranulocytosis secondary to cancer chemotherapy
CPT/HCPCS: 36415; 80053; 83735; 85025; 96365; 96409; J2405; J9390

== ENCOUNTER 2019-06-30 06:23 | Day surgery (SDC) | payer OTHER ==
[2019-06-30] MEDS ORDERED: DEXAMETHASONE SODIUM PHOSPHATE 8 MG, ONDANSETRON INJECTION 8 MG in SODIUM CHLORIDE 100 ML IVPB ONE (10:00)
[2019-06-30] MEDS ORDERED: VINORELBINE TARTRATE IVPB ONE (10:30)
[2019-06-30] MEDS ORDERED: SODIUM CHLORIDE IVPB ONE (10:30)
[2019-06-30] MEDS ORDERED: SODIUM CHLORIDE 250 ML IV ONE (10:36)
[2019-06-30] MEDS ORDERED: POTASSIUM CHLORIDE 20 MEQ, MAGNESIUM SULFATE 1 GM in DEXTROSE 5%-NORMAL SALINE 1,000 ML IVPB SCH (12:00)
[2019-06-30 12:17] LABS: BASO % 0.6 % (0-2.0); EOS % 0.8 % (0-4.5); HEMATOCRIT 27.4 % (32.4-45.2); HEMOGLOBIN 9.3 GM/dL (10.7-15.3); LYMPH % 14.7 % (8-40); MCH 33.7 pg (25.7-33.7); MEAN PLT VOLUME 7.3 fl (7.5-11.1); MONO % 9.8 % (3.8-10.2); NEUT % 74.1 % (42.8-82.8); PLATELET COUNT 232 K/MM3 (134-434); RBC 2.77 M/mm3 (3.60-5.2); RDW 16.6 % (11.6-15.6); WHITE BLOOD COUNT 3.6 K/mm3 (4.0-10.0)
[2019-06-30] MEDS ORDERED: DEXTROSE 5% IV SCH (13:00)
[2019-06-30] MEDS ORDERED: NORMAL SALINE IV SCH (13:00)
[2019-06-30 14:35] LABS: ALBUMIN 3.4 g/dl (3.4-5.0); BILIRUBIN,TOTAL 0.4 mg/dL (0.2-1); BLOOD UREA NITROGEN 18.7 mg/dL (7-18); CALCIUM 9.1 mg/dL (8.5-10.1); CREATININE 1.1 mg/dL (0.55-1.3); MAGNESIUM 1.9 mg/dL (1.8-2.4); POTASSIUM 3.9 mmol/L (3.5-5.1); TOT PROT 6.1 g/dl (6.4-8.2)
[2019-06-30 17:54] VITALS: BP 163/94; PULSE 88; TEMP 98.4
[2019-06-30] MEDS ORDERED: PORTA CATH FLUSH 10 ML IVPUSH ONE (17:54)
== END 2019-06-30 17:00 | disposition home or self-care (01) ==
LOC: JONCNONCHE 06:23 → JONCCHEMO 06:23 → J7W 11:05 → JONCNONCHE 17:00
PROVIDERS: ATTEND Internal Medicine Hematology & Oncology
PROC: 3E0437Z Introduction of Electrolytic and Water Balance Substance into Central Vein, Percutaneous Approach (ICD-10-PCS; principal; 2019-06-30)
DX: C50.311 Malignant neoplasm of lower-inner quadrant of right female breast (principal); C78.89 Secondary malignant neoplasm of other digestive organs; C79.82 Secondary malignant neoplasm of genital organs; Z17.0 Estrogen receptor positive status [ER+]; C80.0 Disseminated malignant neoplasm, unspecified; N13.30 Unspecified hydronephrosis; Z76.89 Persons encountering health services in other specified circumstances
CPT/HCPCS: 36415; 80053; 83735; 85025; 96360; 96361

== ENCOUNTER 2019-07-01 07:32 | Day surgery (SDC) | payer OTHER ==
[2019-07-01] MEDS ORDERED: MAGNESIUM SULF 50% (8.12 MEQ/2 ML-1 GM VIAL) ONE (10:08)
[2019-07-01] MEDS ORDERED: MAGNESIUM SULF 50% (8.12 MEQ/2 ML-1 GM VIAL) IVPB ONE (11:30)
[2019-07-01] MEDS ORDERED: DEXTROSE 5%-NORMAL SALINE 1,000 ML IV ONE ×2 (11:30→13:30)
[2019-07-01] MEDS ORDERED: D5-NS + 20 MEQ KCL - 20 MEQ/1,000 ML INFUS.BAG IV ONE (12:15)
[2019-07-01 18:09] VITALS: BP 176/68; PULSE 87; TEMP 98.4
[2019-07-01] MEDS ORDERED: PORTA CATH FLUSH 10 ML IVPUSH ONE (18:09)
== END 2019-07-01 16:57 | disposition home or self-care (01) ==
LOC: JONCNONCHE 07:32 → J7W 10:05 → JONCNONCHE 16:57
PROVIDERS: ATTEND Internal Medicine Hematology & Oncology
PROC: 3E0437Z Introduction of Electrolytic and Water Balance Substance into Central Vein, Percutaneous Approach (ICD-10-PCS; principal; 2019-07-01)
DX: C50.311 Malignant neoplasm of lower-inner quadrant of right female breast (principal); C78.89 Secondary malignant neoplasm of other digestive organs; C79.82 Secondary malignant neoplasm of genital organs; Z17.0 Estrogen receptor positive status [ER+]; C80.0 Disseminated malignant neoplasm, unspecified; Z76.89 Persons encountering health services in other specified circumstances
CPT/HCPCS: 96360; 96361

== ENCOUNTER 2019-07-07 05:46 | Day surgery (SDC) | payer OTHER ==
[2019-07-07] MEDS ORDERED: DEXAMETHASONE SODIUM PHOSPHATE 8 MG, ONDANSETRON INJECTION 8 MG in SODIUM CHLORIDE 100 ML IVPB ONE (10:00)
[2019-07-07] MEDS ORDERED: VINORELBINE TARTRATE IVPB ONE (10:40)
[2019-07-07] MEDS ORDERED: SODIUM CHLORIDE IVPB ONE (10:40)
[2019-07-07] MEDS ORDERED: SODIUM CHLORIDE 250 ML IV ONE (10:50)
[2019-07-07 11:58] LABS: EOS % 0.9 % (0-4.5); HEMATOCRIT 29.7 % (32.4-45.2); HEMOGLOBIN 10.1 GM/dL (10.7-15.3); LYMPH % 16.9 % (8-40); MCH 33.4 pg (25.7-33.7); MCHC 33.9 g/dl (32.0-36.0); MEAN CELL VOLUME 98.5 fl (80-96); MEAN PLT VOLUME 7.2 fl (7.5-11.1); MONO % 16.8 % (3.8-10.2); NEUT % 64.4 % (42.8-82.8); PLATELET COUNT 259 K/MM3 (134-434); RBC 3.01 M/mm3 (3.60-5.2); RDW 16.9 % (11.6-15.6)
[2019-07-07 13:03] LABS: CALCIUM 9.3 mg/dL (8.5-10.1); CREATININE 1.1 mg/dL (0.55-1.3); MAGNESIUM 1.9 mg/dL (1.8-2.4); POTASSIUM 3.9 mmol/L (3.5-5.1)
[2019-07-07 13:26] LABS: ALBUMIN 3.6 g/dl (3.4-5.0); BILIRUBIN,DIRECT 0.1 mg/dL (0.0-0.2); BILIRUBIN,TOTAL 0.5 mg/dL (0.2-1); TOT PROT 6.5 g/dl (6.4-8.2)
[2019-07-07 15:46] VITALS: TEMP 97.9
[2019-07-07 15:47] VITALS: BP 136/74; PULSE 80
== END 2019-07-07 14:15 | disposition home or self-care (01) ==
LOC: JONCCHEMO 05:46 → J7W 10:06 → JONCCHEMO 14:15
PROVIDERS: ATTEND Internal Medicine Hematology & Oncology
PROC: 3E04305 Introduction of Other Antineoplastic into Central Vein, Percutaneous Approach (ICD-10-PCS; principal; 2019-07-07)
PROC: 3E043GC Introduction of Other Therapeutic Substance into Central Vein, Percutaneous Approach (ICD-10-PCS; 2019-07-07)
PROC: 3E043GC Introduction of Other Therapeutic Substance into Central Vein, Percutaneous Approach (ICD-10-PCS; 2019-07-07)
DX: Z51.11 Encounter for antineoplastic chemotherapy (principal); C50.311 Malignant neoplasm of lower-inner quadrant of right female breast; C78.89 Secondary malignant neoplasm of other digestive organs; C80.0 Disseminated malignant neoplasm, unspecified; Z17.0 Estrogen receptor positive status [ER+]
CPT/HCPCS: 36415; 80048; 80076; 83735; 85025; 96365; 96367; 96409; J9390

== ENCOUNTER 2019-07-14 06:29 | Day surgery (SDC) | payer OTHER ==
[2019-07-14] MEDS ORDERED: DEXAMETHASONE SODIUM PHOSPHATE 8 MG, ONDANSETRON INJECTION 8 MG in SODIUM CHLORIDE 100 ML IVPB ONE (10:00)
[2019-07-14] MEDS ORDERED: VINORELBINE TARTRATE IVPB ONE (10:30)
[2019-07-14] MEDS ORDERED: SODIUM CHLORIDE IVPB ONE (10:30)
[2019-07-14] MEDS ORDERED: SODIUM CHLORIDE 250 ML IV ONE (10:40)
[2019-07-14 12:22] LABS: BASO % 0.8 % (0-2.0); EOS % 1.3 % (0-4.5); HEMATOCRIT 28.9 % (32.4-45.2); HEMOGLOBIN 9.9 GM/dL (10.7-15.3); LYMPH % 11.3 % (8-40); MCH 33.9 pg (25.7-33.7); MCHC 34.4 g/dl (32.0-36.0); MEAN CELL VOLUME 98.6 fl (80-96); MONO % 5.6 % (3.8-10.2); PLATELET COUNT 245 K/MM3 (134-434); RBC 2.93 M/mm3 (3.60-5.2); RDW 17.1 % (11.6-15.6); WHITE BLOOD COUNT 6.2 K/mm3 (4.0-10.0)
[2019-07-14 12:45] LABS: ALBUMIN 3.6 g/dl (3.4-5.0); BILIRUBIN,TOTAL 0.4 mg/dL (0.2-1); BLOOD UREA NITROGEN 13.4 mg/dL (7-18); CALCIUM 9.2 mg/dL (8.5-10.1); CREATININE 1.1 mg/dL (0.55-1.3); MAGNESIUM 1.9 mg/dL (1.8-2.4); TOT PROT 6.3 g/dl (6.4-8.2)
[2019-07-14 16:44] VITALS: TEMP 98.2
[2019-07-14 16:58] VITALS: BP 119/73; PULSE 76
[2019-07-14] MEDS ORDERED: PORTA CATH FLUSH 10 ML IVPUSH ONE (16:58)
== END 2019-07-14 14:30 | disposition home or self-care (01) ==
LOC: JONCCHEMO 06:29 → J7W 11:26 → JONCCHEMO 14:30
PROVIDERS: ATTEND Internal Medicine Hematology & Oncology
PROC: 3E04305 Introduction of Other Antineoplastic into Central Vein, Percutaneous Approach (ICD-10-PCS; principal; 2019-07-14)
PROC: 3E043GC Introduction of Other Therapeutic Substance into Central Vein, Percutaneous Approach (ICD-10-PCS; 2019-07-14)
DX: Z51.11 Encounter for antineoplastic chemotherapy (principal); C50.311 Malignant neoplasm of lower-inner quadrant of right female breast; C79.9 Secondary malignant neoplasm of unspecified site; D70.1 Agranulocytosis secondary to cancer chemotherapy; Z17.0 Estrogen receptor positive status [ER+]
CPT/HCPCS: 36415; 80053; 83735; 85025; 96365; 96409; J9390

== ENCOUNTER 2019-07-22 10:33 | Inpatient (IN) | payer OTHER ==
--- NOTE | 2019-07-22 11:07 | PDOC ---
History of Present Illness - General Chief Complaint: Pain, Acute Stated Complaint: ABD PAIN/ VOMITING Time Seen by Provider: 07/22/19 11:02 - History of Present Illness Initial Comments: 07/22/19 11:51 73y/o F with hx of metastatic breast Cancer s/p right mastectomy, radiation and chemo, with ileostomy, abdominal surgeries presents to the ER with abdominal pain. She has had this pain for about a week. Pain intensified yesterday across her lower abdomen. she describes the pain as pressure like 6/10 pain. Pain is intensified with movement and mildly relieved with rest. She has taken no pain medications at home. She has has 8 episodes of black-coloured emesis. Emesis is the same color as contents of her ileostomy bag. She denies fevers, chills, headache. She endorses nausea, burning with urination. Last chemotherapy session was 2 weeks ago. 07/22/19 11:56 07/22/19 15:47 07/22/19 17:04 Past History - Past Medical History Allergies/Adverse Reactions: Allergies Allergy/AdvReac Type Severity Reaction Status Date / Time No Known Drug Allergies Allergy Verified 07/22/19 10:38 Home Medications: Ambulatory Orders Calcium Citrate/Magnesium/D3 [Calcium Citrate Chewable Wafer] 2 tab PO DAILY 08/12 Cholecalciferol (Vitamin D3) [Vitamin D3] 3,000 unit PO DAILY 05/08/17 Vitamin B Complex 1 each PO DAILY 05/08/17 Ferrous Sulfate [Feosol] 325 mg PO DAILY 01/15/18 Magnesium Citrate 800 mg PO DAILY 01/15/18 Cephalexin [Keflex] 500 mg PO BID #8 capsule 07/25/19 Anemia: Yes Asthma: No Cancer: Yes (right breast, lymph nodes, mets to large intestines,bone) Cardiac Disorders: No CVA: No COPD: No CHF: No Dementia: No Diabetes: No GI Disorders: Yes (DIVERTICULOSIS, COLON ADENOMA) Disorders: Yes (LYMPH NODES COMPRESSED TUBES) HTN: No Hypercholesterolemia: No Liver Disease: No Seizures: No Thyroid Disease: No - Surgical History Abdominal Surgery: Yes (RT HEMICOLECTOMY WITH ILEOSTOMY 2013 WITH OTHER PROCEDURES) Appendectomy: No Cardiac Surgery: No Cholecystectomy: No Lung Surgery: No Neurologic Surgery: No Orthopedic Surgery: No - Immunization History Immunization Up to Date: Yes - Psycho Social/Smoking Cessation Hx Smoking Status: No Smoking History: Never smoked Have you smoked in the past 12 months: No Number of Cigarettes Smoked Daily: 0 Hx Alcohol Use: No Drug/Substance Use Hx: No Substance Use Type: None Hx Substance Use Treatment: No *Physical Exam - Vital Signs Last Vital Signs Temp Pulse Resp BP Pulse Ox 98.1 F 114 H 16 109/72 97 07/22/19 10:34 07/22/19 10:34 07/22/19 10:34 07/22/19 10:34 07/22/19 10:34 - Physical Exam 07/22/19 14:10 PE: GENERAL: Awake, alert, and fully oriented, in no acute distress HEAD: No signs of trauma, normocephalic, atraumatic EYES: PERRLA, EOMI, sclera anicteric, conjunctiva clear ENT: Auricles normal inspection, hearing grossly normal, nares patent, oropharynx clear without exudates. Moist mucosa NECK: Normal ROM, supple, no lymphadenopathy, JVD, or masses LUNGS: No distress, speaks full sentences, clear to auscultation bilaterally , mastectomy of right breast. HEART: Regular rate and rhythm, normal S1 and S2, no murmurs, rubs or gallops, peripheral pulses normal and equal bilaterally. ABDOMEN: Firm to touch. ileostomy bag on right with black contents. no CVA tenderness EXTREMITIES : Normal inspection, Normal range of motion, no edema. No clubbing or cyanosis NEUROLOGICAL: Cranial nerves II through XII grossly intact. Normal speech, no focal sensorimotor deficits SKIN: Warm, Dry, normal turgor, no rashes or lesions noted ED Treatment Course - LABORATORY CBC & Chemistry Diagram: 07/25/19 07:39 07/25/19 07:39 Medical Decision Making - Medical Decision Making 07/22/19 12:43 ekg normal sinus rhythm anterior infarct , age undetermined Meds: Zofran 4mg, Morphine 4mg 07/22/19 15:29 CT abdomen with oral and IV contrast bilateral pleural effusions and basilar atelectasis small to moderate ascites bilateal ureteral stents with increasing hydronephrosis distended bowel loops suggesting partial obstruction adnexal cystic mass increased in size 07/22/19 15:30 07/22/19 15:30 07/22/19 16:09 microblogged for admission hospitalist accepted consult called to dr. dinora jung (surgeon) Nasogastric tube recommended by hospitalist. surgery done by dr. jung a few years back, Is okay with Dr. Yeboah consulting on patient 07/22/19 16:43 conuslt with Urology , pt has history of chronic hydronephrosis hence she had stents place. Is not concerned at this time. Dr. Yeboah informed of patient by Dr. Alex 07/26/19 23:23 Discharge - Discharge Information Problems reviewed: Yes Clinical Impression/Diagnosis: Partial small bowel obstruction Condition: Improved Disposition: HOME - Follow up/Referral - Patient Discharge Instructions - Post Discharge Activity
[2019-07-22] MEDS ORDERED: ONDANSETRON 4 MG/2 ML VIAL IVPUSH ONE (11:42)
[2019-07-22] MEDS ORDERED: morphine CARPU-JECT 4 MG/1 ML DISP.SYRIN IVPUSH ONE (11:42)
[2019-07-22] MEDS ORDERED: SODIUM CHLORIDE 0.9% 500 ML INFUS.BAG IV ONE (11:42)
[2019-07-22] MEDS ORDERED: morphine SULFATE 4 MG/ML VIAL ONE (11:49)
[2019-07-22] MEDS ORDERED: ONDANSETRON 4 MG/2 ML VIAL ONE ×2 (11:50→16:52)
[2019-07-22 12:18] LABS: BASO % 0.4 % (0-2.0); HEMATOCRIT 29.8 % (32.4-45.2); HEMOGLOBIN 10.2 GM/dL (10.7-15.3); LYMPH % 8.4 % (8-40); MCH 33.7 pg (25.7-33.7); MCHC 34.2 g/dl (32.0-36.0); MEAN CELL VOLUME 98.6 fl (80-96); MEAN PLT VOLUME 7.2 fl (7.5-11.1); MONO % 7.7 % (3.8-10.2); NEUT % 83.5 % (42.8-82.8); PLATELET COUNT 268 K/MM3 (134-434); RBC 3.02 M/mm3 (3.60-5.2); RDW 17.2 % (11.6-15.6); WHITE BLOOD COUNT 2.9 K/mm3 (4.0-10.0)
[2019-07-22 12:39] LABS: ALBUMIN 3.4 g/dl (3.4-5.0); ALK PHOS 73 U/L (45-117); ANION GAP 9 MMOL/L (8-16); BILIRUBIN,TOTAL 0.8 mg/dL (0.2-1); BLOOD UREA NITROGEN 28.9 mg/dL (7-18); CALCIUM 9.5 mg/dL (8.5-10.1); CHLORIDE 98 mmol/L (98-107); CO2 25 mmol/L (21-32); CREATININE 1.3 mg/dL (0.55-1.3); GLUCOSE,RANDOM 107 mg/dL (74-106); POTASSIUM 4.6 mmol/L (3.5-5.1); SGOT/AST 47 U/L (15-37); SGPT/ALT 17 U/L (13-61); SODIUM 132 mmol/L (136-145); TOT PROT 6.1 g/dl (6.4-8.2)
--- NOTE | 2019-07-22 14:56 | EKG ---
Test Reason : Blood Pressure : / mmHG Vent. Rate : 099 BPM Atrial Rate : 099 BPM P-R Int : 162 ms QRS Dur : 088 ms QT Int : 340 ms P-R-T Axes : 037 013 058 degrees QTc Int : 436 ms NORMAL SINUS RHYTHM ANTERIOR INFARCT , AGE UNDETERMINED ABNORMAL ECG WHEN COMPARED WITH ECG OF 08-DEC-2017 09:36, NONSPECIFIC T WAVE ABNORMALITY NOW EVIDENT IN INFERIOR LEADS Confirmed by MD ARUN, JUAN M ([id number]) on 07/22/2019 2:55:59 PM Referred By: Confirmed By:JUAN M DIAS MD
[2019-07-22] MEDS ORDERED: ACETAMINOPHEN 1000 MG/100 ML VIAL (NON FORMULARY) IVPB ONE (15:56)
[2019-07-22] MEDS ORDERED: SODIUM CHLORIDE 0.9% 1000 ML INFUS.BAG IV ONE (15:56)
[2019-07-22] MEDS ORDERED: ACETAMINOPHEN INJECTION 100 ML IVPB ONE (16:23)
[2019-07-22] MEDS ORDERED: ONDANSETRON 4 MG/2 ML VIAL IVPB PRN (16:47)
--- NOTE | 2019-07-22 16:51 | HP ---
<María Andrew - Last Filed: 07/22/19 19:24> Hospitalist Medicine Admission 73 y/o F with PMH metastatic breast CA (last chemo 2 weeks ago; with mets to large intestines, spine per pt. Stage 3A on granix, navelbine), s/p R mastectomy , s/p radiation, on chemo, w/ileostomy, b/l ureteral stents for past retention, hx past abdominal sx, who presents for abdominal pain over the last week. Per pt , her abdominal pain has been diffuse and a/w 6-7 episodes of dark NBNB emesis. Same as in ostomy pouch. Is not a/w RHOADES, fever, chills, SOB, chest pain or pressure or changes in bowel function. During this time, also c/o dysuria and decreased urinary frequency. Pt lives independently at home at baseline. Functions on own. Follows with Dr. Edward for onc. Dr. Rucker performed her past sx. PMH: as above PsxH: as above meds: only takes vitamins, med rec in chart. allergies: NKDA FH: denies SH: denies cigarette, alcohol or recreational drug use HOME MEDICATIONS: Home Medications Medication Instructions Recorded Calcium Citrate/Magnesium/D3 2 tab PO DAILY 05/08/17 [Calcium Citrate Chewable Wafer] Cholecalciferol (Vitamin D3) 3,000 unit PO DAILY 05/08/17 [Vitamin D3] Vitamin B Complex 1 each PO DAILY 05/08/17 Ferrous Sulfate [Feosol] 325 mg PO DAILY 01/15/18 Magnesium Citrate 800 mg PO DAILY 01/15/18 PHYSICAL EXAMINATION Vital Signs - 24 hr 07/22/19 07/22/19 10:34 15:10 Temperature 98.1 F 98.2 F Pulse Rate 114 H Pulse Rate [ 93 H Right] Respiratory 16 Rate Blood Pressure 109/72 Blood Pressure 120/76 [Left Arm] O2 Sat by Pulse 97 Oximetry (%) Physical Exam General: resting in bed, in NAD however nauseated HEENT: NCAT neck: supple cardio: S1, S2, RRR. no r/m/g pulm: CTA b/l, however unable to take deep resp 2/2 nausea abdomen: +suprapubic tenderness. 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 grossly intact Laboratory Results - last 24 hr 07/22/19 07/22/19 07/22/19 12:00 12:00 12:00 WBC 2.9 L RBC 3.02 L Hgb 10.2 L Hct 29.8 L MCV 98.6 H MCH 33.7 MCHC 34.2 RDW 17.2 H Plt Count 268 MPV 7.2 L Absolute Neuts (auto) 2.4 Neutrophils % 83.5 H Lymphocytes % 8.4 D Monocytes % 7.7 Eosinophils % 0.0 D Basophils % 0.4 Nucleated RBC % 0 Sodium 132 L Potassium 4.6 Chloride 98 Carbon Dioxide 25 Anion Gap 9 BUN 28.9 H Creatinine 1.3 Est GFR (CKD-EPI)AfAm 47.13 Est GFR (CKD-EPI)NonAf 40.67 Random Glucose 107 H Lactic Acid 1.4 Calcium 9.5 Total Bilirubin 0.8 AST 47 H ALT 17 Alkaline Phosphatase 73 Troponin I < 0.02 Total Protein 6.1 L Albumin 3.4 EKG: NSR, vent rate 99bpm, qtc 436ms CTAP: bilateral pleural effusions and basilar atelectasis, small to moderate ascites increased since 05/22/2019, bilateal ureteral stents with increasing hydronephrosis, RLQ colostomy with distended bowel loops suggesting partial obstruction. large R adnexal cystic mass slightly increased in size. ASSESSMENT/PLAN: 73 y/o F with PMH metastatic breast CA (last chemo 2 weeks ago; with mets to large intestines, spine per pt. Stage 3A on granix, navelbine), s/p R mastectomy , s/p radiation, on chemo, w/ileostomy, b/l ureteral stents for past retention, hx past abdominal sx, who presents for abdominal pain over the last week. Pt found to have partial SBO. #Partial SBO -possible 2/2 adhesions from previous abdominal sx -sx consulted: Dr. Yeboah -NGT placement, decompression -start on IVF; NS 100 cc/hr -will follow lytes, i/o -IV tylenol PRN for pain control -IV zofran PRN for nausea. qtc is ok 436ms -f/u repeat AXR in AM, serial abdom exams #ascites (seen on CTAP) likely 2/2 malignancy -pt without cirrhosis. platelets WNL, albumin WNL -f/u abd sono to quantify -may require tap if symptomatic. has increased from previous #hx dysuria -will tx for UTI - c/w rocephin (Day 1) -f/u urine cx #metastatic breast CA -last chemo 2 weeks ago -w/ mets to large intestine, spine per pt -stage 3A, on granix, navelbine -onc consult: Dr. Peters #hx b/l ureteral stents, w/ increasing hydronephrosis -as seen on recent CTAP -urology called by ER. -uro: Dr. Stein; requires no acute intervention, chronic -refusing castellanos placement -c/w bladder scan ASDIR #hx large R adnexal cystic mass -will need c/t monitor as outpt #F/E/N IV NS 100 cc/hr continue to follow lytes NPO. bowel rest #PPX DVT: lovenox, as pt high risk for clot w/ CA #Dispo admit to med-surg Visit type - Emergency Visit Emergency Visit: Yes ED Registration Date: 07/22/19 Care time: The patient presented to the Emergency Department on the above date and was hospitalized for further evaluation of their emergent condition. - New Patient This patient is new to me today: Yes Date on this admission: 07/22/19 - Critical Care Critical Care patient: No <Margaritaoscarjuan pabloGeorge - Last Filed: 07/24/19 13:48> Seen and examined; please see resident note for further historical documentation. I agree with the above aside from as supplemented and I independently verified all limon historical and PE findings as well as labs, imaging, and diagnostics. Discussed at length with resident and indicated consultants. Agree with inpatient admission. Pending surgical eval-I am informed that the surgical service was contacted by ER. Patient presents with abdominal pain; history of osseous metastatic breast cancer currently on chemo who was first dxed w/breast carcinoma in 2008 and underwent right mastectomy and related procedures; in 2013 she developed an acute abdomen and underwent a right colectomy; small bowel resection and end ileostomy for metastatic breast carcinoma to the peritoneal cavity. HOME MEDICATIONS: Home Medications Medication Instructions Recorded Calcium Citrate/Magnesium/D3 2 tab PO DAILY 05/08/17 [Calcium Citrate Chewable Wafer] Cholecalciferol (Vitamin D3) 3,000 unit PO DAILY 05/08/17 [Vitamin D3] Vitamin B Complex 1 each PO DAILY 05/08/17 Ferrous Sulfate [Feosol] 325 mg PO DAILY 01/15/18 Magnesium Citrate 800 mg PO DAILY 01/15/18 REVIEW OF SYSTEMS 10 sys ROS done and negative aside from HPI in resident note PHYSICAL EXAMINATION Vital Signs - 24 hr 07/22/19 07/22/19 07/22/19 15:10 18:35 19:45 Temperature 98.2 F 99 F 99.2 F Pulse Rate Pulse Rate [ 93 H 102 H 83 Right] Respiratory 18 18 Rate Blood Pressure Blood Pressure 120/76 107/68 130/74 [Left Arm] O2 Sat by Pulse 96 96 Oximetry (%) 07/22/19 07/23/19 22:00 06:00 Temperature 98.8 F 98.4 F Pulse Rate 90 88 Pulse Rate [ Right] Respiratory 18 18 Rate Blood Pressure 122/67 132/73 Blood Pressure [Left Arm] O2 Sat by Pulse 96 Oximetry (%) GENERAL: Awake, alert, and fully oriented, in no acute distress. HEAD: Normal with no signs of trauma. EYES: Pupils equal, round and reactive to light, extraocular movements intact, EARS, NOSE, THROAT: Ears normal, nares patent, oropharynx clear without exudates NECK: Normal range of motion, supple without lymphadenopathy, JVD, or masses. LUNGS: Breath sounds equal, clear to auscultation bilaterally. HEART: Regular rate and rhythm, normal S1 and S2 without murmur ABDOMEN: Soft, nontender, not distended, normoactive bowel sounds MUSCULOSKELETAL: Normal range of motion at all joints. No bony deformities NEUROLOGICAL: Cranial nerves II-XII intact. Normal speech. Normal gait. PSYCHIATRIC: Cooperative. Good eye contact. Appropriate mood SKIN: Warm, dry, normal turgor, no rashes Laboratory Results - last 24 hr 07/22/19 07/22/19 07/23/19 12:00 18:30 07:31 WBC 2.6 L RBC 2.57 L Hgb 8.8 L Hct 25.3 L D MCV 98.3 H MCH 34.1 H MCHC 34.7 RDW 17.2 H Plt Count 228 MPV 7.1 L Absolute Neuts (auto) 1.8 Neutrophils % 72.2 Lymphocytes % 11.0 D Monocytes % 14.8 H D Eosinophils % 1.5 D Basophils % 0.5 Nucleated RBC % 0 Sodium Potassium Chloride Carbon Dioxide Anion Gap BUN Creatinine Est GFR (CKD-EPI)AfAm Est GFR (CKD-EPI)NonAf Random Glucose Calcium Phosphorus Magnesium Troponin I < 0.02 Urine Color Yellow Urine Appearance Clear Urine pH 6.0 Ur Specific [place] 1.023 Urine Protein 1+ H Urine Glucose (UA) Negative Urine Ketones Trace H Urine Blood 2+ H Urine Nitrite Negative Urine Bilirubin Negative Urine Urobilinogen 0.2 Ur Leukocyte Esterase 1+ H Urine WBC (Auto) 12 Urine RBC (Auto) 65-70 Urine Casts (Auto) 10 U Epithel Cells (Auto) 4.0 Urine Bacteria (Auto) 33.2 Urine Yeast (Auto) None seen 07/23/19 07:31 WBC RBC Hgb Hct MCV MCH MCHC RDW Plt Count MPV Absolute Neuts (auto) Neutrophils % Lymphocytes % Monocytes % Eosinophils % Basophils % Nucleated RBC % Sodium 137 Potassium 4.1 Chloride 106 Carbon Dioxide 21 Anion Gap 10 BUN 24.9 H Creatinine 1.2 Est GFR (CKD-EPI)AfAm 51.92 Est GFR (CKD-EPI)NonAf 44.80 Random Glucose 66 L Calcium 8.5 Phosphorus 3.6 Magnesium 1.7 L Troponin I Urine Color Urine Appearance Urine pH Ur Specific [place] Urine Protein Urine Glucose (UA) Urine Ketones Urine Blood Urine Nitrite Urine Bilirubin Urine Urobilinogen Ur Leukocyte Esterase Urine WBC (Auto) Urine RBC (Auto) Urine Casts (Auto) U Epithel Cells (Auto) Urine Bacteria (Auto) Urine Yeast (Auto) CT scan obtained in ER reviewed ER documentation reviewed Prior admissions reviewed ASSESSMENT/PLAN: Patient presents to the ER with abdominal pain and vomiting with suspected p- SBO. She has ongoing pain but midly +BS but no flatus or BM. Prior history noted making her high risk. She will be admitted to the medicine service with surgical consultation and kept NPO. No NGT at this juncture. Problems include: Abdominal pain and vomiting Suspected partial small bowel obstruction Status post ileostomy, s/p R-collectomy Overweight Hx Breast Cancer Full Code ATTENDING PHYSICIAN STATEMENT I saw and evaluated the patient. I reviewed the resident's note and discussed the case with the resident. I agree with the resident's findings and plan as documented. SUBJECTIVE: OBJECTIVE: ASSESSMENT AND PLAN:
--- NOTE | 2019-07-22 16:52 | PDOC ---
Documentation entered by Frandy Roberts SCRIBE, acting as scribe for Rajiv Alex MD. Rajiv Alex MD: This documentation has been prepared by the Alejandra mesa Nirvannie, SCRIBE, under my direction and personally reviewed by me in its entirety. I confirm that the documentation accurately reflects all work, treatment, procedures, and medical decision making performed by me. Attending Attestation - Resident Resident Name: Wes Levy - ED Attending Attestation I have performed the following: I have examined & evaluated the patient, The case was reviewed & discussed with the resident, I agree w/resident's findings & plan, Exceptions are as noted - HPI HPI: 07/22/19 12:16 CC: Abdominal pain. HPI: The patient is a 73 year old female, with a significant past medical history of breast CA (s/p right mastectomy, chemo/radiation) and s/p ileostomy, who presents to the emergency department with, 1 week of 6/10, pressure-like abdominal pain localized lower abdomen. Patient notes the pain to worsen with movement and alleviate with rest with associated 8 episodes of dark emesis similar to the substance in her ileostomy bag. Last chemotherapy session was 2 weeks ago. She denies recent chest pain or shortness of breath. Allergies: NKDA - Physicial Exam PE: 07/22/19 18:20 Vitals: Triage Vital signs reviewed General Appearance: No acute distress, well nourished well developed, Cardiac: Regular rate and rhythym, no murmurs, no rubs, no gallops, Lungs: Clear to auscultation bilateral, good air movement bilaterally, Abdomen: Soft, non distended, normal bowel sounds, non tender to palpation diffuse tenderness to palpation Extremities: Full range of motion to all extremities, no cyanosis, clubbing, or edema Skin: Warm and dry, no rashes or lesions, no rash, no petechiae Psych: Normal mood, normal affect - Medical Decision Making 07/22/19 18:22 Metastatic breast cancer with omental involvement past surgical history significant for colostomy with ileostomy bag placement CAT scan demonstrates partial small bowel obstruction with likely transition point in the right lower quadrant where there are surgical anastomoses Patient not actively vomiting one episode yesterday comfortable Case discussed with surgery Will admit to medicine with surgical consultation for further management.
[2019-07-22] MEDS ORDERED: ACETAMINOPHEN 1000 MG/100 ML VIAL (NON FORMULARY) IVPB PRN (17:18)
[2019-07-22] MEDS ORDERED: CEFTRIAXONE 1 GM in DEXTROSE 5%-WATER - 50 ML IVPB ONE (17:54)
[2019-07-22] MEDS ORDERED: CEFTRIAXONE 1 GM/50 ML BAG ONE (18:15)
[2019-07-22] MEDS ORDERED: PANTOPRAZOLE SODIUM 40 MG/100 ML BAG IVPB ONE (18:15)
[2019-07-22] MEDS: PANTOPRAZOLE SODIUM 40 MG VIAL IVPUSH SCH (18:30)
[2019-07-22 18:53] LABS: HYALINE CASTS 10 /lpf (0-8); URINE APPEARANCE CLEAR; URINE BACTERIA 33.2 /hpf (NEGATIVE); URINE BILIRUBIN NEGATIVE (NEGATIVE); URINE COLOR YELLOW; URINE GLUCOSE (UA) NEGATIVE (NEGATIVE); URINE KETONE TRACE (NEGATIVE); URINE LEUK ESTERASE 1+ (NEGATIVE); URINE NITRITE NEGATIVE (NEGATIVE); URINE PROTEIN 1+ (NEGATIVE); URINE UROBILINOGEN 0.2 mg/dL (0.2-1.0); URINE WBC 12 /hpf (0-5)
[2019-07-22 19:16] LABS: URINE RBC 65-70 /hpf (0-4)
[2019-07-22 19:17] LABS: YEAST NONE SEEN (NEGATIVE)
[2019-07-22] MEDS: SODIUM CHLORIDE 1,000 ML IV SCH (20:20)
--- NOTE | 2019-07-22 20:41 | CON.GU ---
Consult Consult Specialty:: Referred by:: Medicine Reason for Consultation:: hydronephrosis - History of Present Illness Chief Complaint: SBO, hydronephrosis History of Present Illness: 73 year old woman with metastatic breast cancer and chronic hydronephrosis. 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: Yes: Peripheral Neuropathy Cardio/Vascular: Yes: HTN Renal/: Yes: Renal Failure, Renal Inusuff, UTI (hydronephrosis), Other ( obstructive uropathy) - Alcohol/Substance Use Hx Alcohol Use: No - Smoking History Smoking history: Never smoked Have you smoked in the past 12 months: No Aproximately how many cigarettes per day: 0 Home Medications - Allergies Allergies/Adverse Reactions: Allergies Allergy/AdvReac Type Severity Reaction Status Date / Time No Known Drug Allergies Allergy Verified 07/22/19 10:38 - Home Medications Home Medications: Ambulatory Orders Calcium Citrate/Magnesium/D3 [Calcium Citrate Chewable Wafer] 2 tab PO DAILY 08/12 Cholecalciferol (Vitamin D3) [Vitamin D3] 3,000 unit PO DAILY 05/08/17 Vitamin B Complex 1 each PO DAILY 05/08/17 Ferrous Sulfate [Feosol] 325 mg PO DAILY 01/15/18 Magnesium Citrate 800 mg PO DAILY 01/15/18 Physical Exam- Vital Signs: Vital Signs Temperature 99.2 F 07/22/19 19:45 Pulse Rate 83 07/22/19 19:45 Respiratory Rate 18 07/22/19 19:45 Blood Pressure 130/74 07/22/19 19:45 O2 Sat by Pulse Oximetry (%) 96 07/22/19 19:45 Labs: CBC, BMP 07/22/19 12:00 07/22/19 12:00 Problem List - Problems (1) Hydronephrosis Assessment/Plan: She has indwelling metal stents for her ureteral obstruction. She is due for change in December 2019. They are in proper position on CT. Code(s): N13.30 - UNSPECIFIED HYDRONEPHROSIS
[2019-07-22] MEDS ORDERED: ONDANSETRON 4 MG/2 ML VIAL IVPUSH PRN (21:38)
[2019-07-23] MEDS: SODIUM CHLORIDE 1,000 ML IV SCH ×2 (06:16→18:31)
[2019-07-23 08:22] LABS: BASO % 0.5 % (0-2.0); EOS % 1.5 % (0-4.5); HEMATOCRIT 25.3 % (32.4-45.2); HEMOGLOBIN 8.8 GM/dL (10.7-15.3); MCH 34.1 pg (25.7-33.7); MCHC 34.7 g/dl (32.0-36.0); MEAN CELL VOLUME 98.3 fl (80-96); MEAN PLT VOLUME 7.1 fl (7.5-11.1); MONO % 14.8 % (3.8-10.2); NEUT % 72.2 % (42.8-82.8); PLATELET COUNT 228 K/MM3 (134-434); RBC 2.57 M/mm3 (3.60-5.2); RDW 17.2 % (11.6-15.6); WHITE BLOOD COUNT 2.6 K/mm3 (4.0-10.0)
[2019-07-23 08:25] VITALS: BMI 27.8
[2019-07-23 08:56] LABS: BLOOD UREA NITROGEN 24.9 mg/dL (7-18); CALCIUM 8.5 mg/dL (8.5-10.1); CREATININE 1.2 mg/dL (0.55-1.3); MAGNESIUM 1.7 mg/dL (1.8-2.4); PHOSPHOROUS 3.6 mg/dL (2.5-4.9); POTASSIUM 4.1 mmol/L (3.5-5.1)
[2019-07-23] MEDS ORDERED: MAGNESIUM SULF 50% (8.12 MEQ/2 ML-1 GM VIAL) IVPB ONE (09:23)
[2019-07-23] MEDS ORDERED: FLU VACCINE QUAD 60 MCG/0.5 ML (MDV 19-20) IM ONE (10:00)
[2019-07-23] MEDS ORDERED: PNEUMOC 13-VAL CONJ-DIP CRM/PF 0.5 ML DISP.SYRIN IM ONE (10:00)
--- NOTE | 2019-07-23 11:03 | CONSULT ---
- Consultation REQUESTING PROVIDER: Sandra GARBER CONSULT REQUEST: We have been asked to surgically evaluate this patient for a possible bowel obstruction. PCP:George Flores MD HISTORY OF PRESENT ILLNESS: EVIE who is a 73 y/o female w/known osseous metastatic breast cancer currently on chemo who was first dxed w/breast carcinoma in 2008 and underwent right mastectomy and related procedures; in 2013 she developed an acute abdomen and underwent a right colectomy; small bowel resection and end ileostomy for metastatic breast carcinoma to the peritoneal cavity. She presented here w/ nausea and vomiting and abdominal pain and w/u revealed findings c/w an SBO; since admission she states she is feeling better. PMHx: metastatic breast carcinoma PSHx: right mastectomy and a s above. Home Medications Medication Instructions Recorded Calcium Citrate/Magnesium/D3 2 tab PO DAILY 05/08/17 [Calcium Citrate Chewable Wafer] Cholecalciferol (Vitamin D3) 3,000 unit PO DAILY 05/08/17 [Vitamin D3] Vitamin B Complex 1 each PO DAILY 05/08/17 Ferrous Sulfate [Feosol] 325 mg PO DAILY 01/15/18 Magnesium Citrate 800 mg PO DAILY 01/15/18 Allergies Allergy/AdvReac Type Severity Reaction Status Date / Time No Known Drug Allergies Allergy Verified 07/22/19 10:38 REVIEW OF SYSTEMS: CONSTITUTIONAL: Present: chills, diaphoresis, generalized weakness, malaise, loss of appetite, weight change CARDIOVASCULAR: Absent: chest pain, syncope, palpitations, irregular heart rate, lightheadedness , peripheral edema RESPIRATORY: Absent: cough, shortness of breath, dyspnea with exertion, wheezing, stridor, hemoptysis GASTROINTESTINAL: Present: abdominal pain, abdominal distension, nausea, vomiting, GENITOURINARY: Present: difficulty voiding MUSCULOSKELETAL: Absent: myalgia, arthralgia, joint swelling, back pain, neck pain SKIN: Absent: rash, itching, pallor HEMATOLOGIC/IMMUNOLOGIC: Present: easy bleeding, easy bruising, NEUROLOGIC: Absent: headache, focal weakness, paresthesias, dizziness, unsteady gait, seizure, mental status changes, bladder or bowel incontinence PSYCHIATRIC: Absent: anxiety, depression, suicidal or homicidal ideation, hallucinations. PHYSICAL EXAM: GENERAL: Awake, alert, and fully oriented, in no acute distress. HEAD: Normal with no signs of trauma. EYES: sclera anicteric, conjunctiva clear. NECK: Normal ROM, supple without lymphadenopathy, JVD, or masses. ABDOMEN: Soft, nontender, not distended, normoactive bowel sounds, no guarding, no rebound, no masses. No organomegaly. No hernias; some gas and bowel contents in the ileostomy pouch. MUSCULOSKELETAL: Normal ROM at all joints. No bony deformities or tenderness. No CVA tenderness. UPPER EXTREMITIES: 2+ pulses, warm, well-perfused. No cyanosis. Cap refill <2 seconds. No peripheral edema. LOWER EXTREMITIES: 2+ pulses, warm, well-perfused. No calf tenderness. No peripheral edema. NEUROLOGICAL: Normal speech, gait not observed. PSYCH: Cooperative. Good eye contact. Appropriate mood and affect. SKIN: Warm, dry, normal turgor, no rashes or lesions noted. Vital Signs Temperature 98.4 F 07/23/19 06:00 Pulse Rate 88 07/23/19 06:00 Respiratory Rate 18 07/23/19 06:00 Blood Pressure 132/73 07/23/19 06:00 O2 Sat by Pulse Oximetry (%) 96 07/22/19 22:00 Lab Results WBC 2.6 K/mm3 (4.0-10.0) L 07/23/19 07:31 RBC 2.57 M/mm3 (3.60-5.2) L 07/23/19 07:31 Hgb 8.8 GM/dL (10.7-15.3) L 07/23/19 07:31 Hct 25.3 % (32.4-45.2) L D 07/23/19 07:31 MCV 98.3 fl (80-96) H 07/23/19 07:31 MCHC 34.7 g/dl (32.0-36.0) 07/23/19 07:31 RDW 17.2 % (11.6-15.6) H 07/23/19 07:31 Plt Count 228 K/MM3 (134-434) 07/23/19 07:31 Sodium 137 mmol/L (136-145) 07/23/19 07:31 Potassium 4.1 mmol/L (3.5-5.1) 07/23/19 07:31 Chloride 106 mmol/L (98-107) 07/23/19 07:31 Carbon Dioxide 21 mmol/L (21-32) 07/23/19 07:31 Anion Gap 10 MMOL/L (8-16) 07/23/19 07:31 BUN 24.9 mg/dL (7-18) H 07/23/19 07:31 Creatinine 1.2 mg/dL (0.55-1.3) 07/23/19 07:31 Random Glucose 66 mg/dL (74-106) L 07/23/19 07:31 Calcium 8.5 mg/dL (8.5-10.1) 07/23/19 07:31 CT scan a/p reviewed and todays obstructive series reviewed IMP: resolving probable partial sbo PLAN: Continue NPO/IVF/serial abdominal x rays; will f/u; a/a/u by the patient. Amador Yeboah MD FACS
[2019-07-23] MEDS: ENOXAPARIN NA (PORCINE) 40 MG/0.4 ML DISP.SYRIN SQ SCH (11:08)
[2019-07-23] MEDS: PANTOPRAZOLE SODIUM 40 MG VIAL IVPUSH SCH (11:08)
--- NOTE | 2019-07-23 13:30 | PN ---
Progress Note (short form) - Note Progress Note: Hospitalist Medicine Feeling well today, less nausea. No flatus yet and feeling hungry. Resting in bed. Vitals 07/23/19 06:00 Temperature 98.4 F Pulse Rate 88 Respiratory 18 Rate Blood Pressure 132/73 Physical Exam General: resting in bed, in NAD. pleasant HEENT: NCAT, PERRLA neck: supple cardio: S1, S2, RRR. no r/m/g pulm: CTA b/l, no accessory m usage abdomen: without suprapubic tenderness. no guarding or rigidity LE: 2+ pulses, no edema neuro: shingler 2-12 grossly intact Laboratory Tests 07/22/19 07/23/19 07/23/19 18:30 07:31 07:31 WBC 2.6 L Hgb 8.8 L Hct 25.3 L D Plt Count 228 Sodium 137 Potassium 4.1 Chloride 106 Carbon Dioxide 21 BUN 24.9 H Creatinine 1.2 Random Glucose 66 L Magnesium 1.7 L Urine Ketones Trace H Urine Blood 2+ H Urine Nitrite Negative Urine Bilirubin Negative Urine Urobilinogen 0.2 Ur Leukocyte Esterase 1+ H Urine WBC (Auto) 12 Urine RBC (Auto) 65-70 Microbiology Ucx: pending EKG: NSR, vent rate 99bpm, qtc 436ms CTAP: bilateral pleural effusions and basilar atelectasis, small to moderate ascites increased since 05/22/2019, bilateal ureteral stents with increasing hydronephrosis, RLQ colostomy with distended bowel loops suggesting partial obstruction. large R adnexal cystic mass slightly increased in size. abdom sono:earlier exam underestimates the amount of ascites probably due to obscuring bowel gas. on CT a small to moderate amount of abdominal and pelvis ascites was noted. in addition, CT showed a 10.7cmx9.9 x 8.4cm R adnexal cystic lesion which can't be appreciate on the current ultrasound exam. 07/23: KUB: no free air, large heart. bolus changes R base and bilateral ureteral stents/pigtail catheters. proximal ends are in the renal pelves and the distal ends are in the bladder. there is no sign of free air, organomegaly, or calcifications of significance. there is air in the stomach and some air in the small bowel loops. this could represent a focal small bowel ileus. ASSESSMENT/PLAN: 73 y/o F with PMH metastatic breast CA (last chemo 2 weeks ago; with mets to large intestines, spine per pt. Stage 3A on granix, navelbine), s/p R mastectomy , s/p radiation, on chemo, w/ileostomy, b/l ureteral stents for past retention, hx past abdominal sx, who presents for abdominal pain over the last week. Pt found to have partial SBO. #Partial SBO - resolving -possible 2/2 adhesions from previous abdominal sx -sx consulted: Dr. Yeboah -without NGT per sx -on IVF; NS 100 cc/hr -will follow lytes, i/o (repleted Mg today) -IV tylenol PRN for pain control -IV zofran PRN for nausea. qtc is ok 436ms -f/u repeat AXR in AM, serial abdom exams #ascites (seen on CTAP) likely 2/2 malignancy -pt without cirrhosis. platelets WNL, albumin WNL -may require tap if symptomatic. has increased from previous #hx dysuria -will tx for UTI - c/w rocephin (Day 2) -f/u urine cx #metastatic breast CA -last chemo 2 weeks ago -w/ mets to large intestine, spine per pt -stage 3A, on granix, navelbine -onc consult: Dr. Peters; c/w outpt infusions #hx b/l ureteral stents, w/ increasing hydronephrosis -as seen on recent CTAP -uro: Dr. Stein; requires no acute intervention, chronic -w/o current retention #hx large R adnexal cystic mass -will need c/t monitor as outpt #F/E/N IV NS 100 cc/hr continue to follow lytes NPO. bowel rest until SBO resolves #PPX DVT: lovenox, as pt high risk for clot w/ CA #Dispo cont'd monitoring on med-surg <María Andrew - Last Filed: 07/23/19 17:07> - Note Progress Note: Seen and examined; please see resident note for further historical information. I personally verified all limon historical information and exam findings. Personally interpreted all imaging and diagnostics and reviewed appropriate consults. I reviewed all labs and vital signs as per resident note and EMR as documented. I agree with the above assessment and plan unless supplemented by myself in the following. Abdominal pain is improved, no further nausea or vomiting. The patient has liquid stool in the ileostomy bag along with some gas. 10 system review of systems was done and negative except for HPI. VS, labs, imaging reviewed NAD, AAO, resting comfortably in bed. RRR s1/2 no mgr Normal muscle tone, moves all 5 extremities with normal apparent strength Neck is supple, trachea midline, no errol LN Lungs CTAB with sym expansion NT ND +BS no errol organomegaly CN2-12 wnl; no FND NC AT EOMI PERRLA Normal mood, appropriate behavior, euthymic affect No skin breakdown or rashes noted Flat and upright ordered Following up surgical rec's Problems include: Abdominal pain and vomiting Suspected partial small bowel obstruction Status post ileostomy, s/p R-collectomy Overweight Hx Breast Cancer Patient's abdominal pain improved. No surgical intervention indicated at this time, still without nasogastric tube per Dr. Yeboah. Liquid stool could be overflow; will monitor Full code <George Flores - Last Filed: 07/24/19 13:51>
--- NOTE | 2019-07-23 13:42 | CONSULT ---
Consultation: REQUESTING PROVIDER: HEME/ONC Service CONSULT REQUEST: We have been asked to medically evaluate this patient for metastatic Breast CA. HISTORY OF PRESENT ILLNESS: 73 y/o F with PMH metastatic breast CA (last chemo 07/05/2019 ago; with mets to large intestines, spine per pt. Stage 3A on granix, navelbine), s/p R mastectomy , s/p radiation, on chemo, w/R colectomy and ileostomy, b/l ureteral stents for past retention, hx past abdominal sx, who presents for abdominal pain over the last week. Heme/Onc was called to evaluate for metastatic breast CA. On my interview, pt states she feels much better and the firmness of her belly is resolving. She mentions she has been undergoing chemotherapy on and off since her diagnosis of breast CA 10 years ago. At that time, she received mastectomy, chemo, and XRT. She has since had mets to large intestine and bone. Nuclear bone scan (04/2019) revealed osteoblastic mets to ribs, left sternum, and spine improved since last imaging. REVIEW OF SYSTEMS: CONSTITUTIONAL: Absent: fever, chills, diaphoresis, generalized weakness, malaise, loss of appetite, weight change HEENT: Absent: rhinorrhea, nasal congestion, throat pain, throat swelling, difficulty swallowing, mouth swelling, ear pain, eye pain, visual changes CARDIOVASCULAR: Absent: chest pain, syncope, palpitations, irregular heart rate, lightheadedness , peripheral edema RESPIRATORY: Absent: cough, shortness of breath, dyspnea with exertion, orthopnea, wheezing, stridor, hemoptysis GASTROINTESTINAL: abdominal pain, abdominal distension, nausea, vomiting Absent: , diarrhea, constipation, melena, hematochezia GENITOURINARY: Absent: dysuria, frequency, urgency, hesitancy, hematuria, flank pain, genital pain MUSCULOSKELETAL: Absent: myalgia, arthralgia, joint swelling, back pain, neck pain SKIN: Absent: rash, itching, pallor HEMATOLOGIC/IMMUNOLOGIC: Absent: easy bleeding, easy bruising, lymphadenopathy, frequent infections ENDOCRINE: Absent: unexplained weight gain, unexplained weight loss, heat intolerance, cold intolerance NEUROLOGIC: Absent: headache, focal weakness or paresthesias, dizziness, unsteady gait, seizure, mental status changes, bladder or bowel incontinence PSYCHIATRIC: Absent: anxiety, depression, suicidal or homicidal ideation, hallucinations. PHYSICAL EXAMINATION Vital Signs - 24 hr 07/22/19 07/22/19 07/22/19 15:10 18:35 19:45 Temperature 98.2 F 99 F 99.2 F Pulse Rate Pulse Rate [ 93 H 102 H 83 Right] Respiratory 18 18 Rate Blood Pressure Blood Pressure 120/76 107/68 130/74 [Left Arm] O2 Sat by Pulse 96 96 Oximetry (%) 07/22/19 07/23/19 22:00 06:00 Temperature 98.8 F 98.4 F Pulse Rate 90 88 Pulse Rate [ Right] Respiratory 18 18 Rate Blood Pressure 122/67 132/73 Blood Pressure [Left Arm] O2 Sat by Pulse 96 Oximetry (%) Gen: NAD, AAOx3 HEENT: NCAT, PERRL, EOMI Neck: R chemo port in place, supple Cardio: rrr, normal s1s2, systolic murmur Pulm: cta b/l Breast: s/p R mastectomy with XRT related skin changes, L breast with 3cm nodule Abd: R sided colostomy with green watery and bulky stools. Soft, mildly tender, nondistended, decreased bowel sounds Ext: no edema Laboratory Results - last 24 hr 07/22/19 07/23/19 07/23/19 18:30 07:31 07:31 WBC 2.6 L RBC 2.57 L Hgb 8.8 L Hct 25.3 L D MCV 98.3 H MCH 34.1 H MCHC 34.7 RDW 17.2 H Plt Count 228 MPV 7.1 L Absolute Neuts (auto) 1.8 Neutrophils % 72.2 Lymphocytes % 11.0 D Monocytes % 14.8 H D Eosinophils % 1.5 D Basophils % 0.5 Nucleated RBC % 0 Sodium 137 Potassium 4.1 Chloride 106 Carbon Dioxide 21 Anion Gap 10 BUN 24.9 H Creatinine 1.2 Est GFR (CKD-EPI)AfAm 51.92 Est GFR (CKD-EPI)NonAf 44.80 Random Glucose 66 L Calcium 8.5 Phosphorus 3.6 Magnesium 1.7 L Urine Color Yellow Urine Appearance Clear Urine pH 6.0 Ur Specific [place] 1.023 Urine Protein 1+ H Urine Glucose (UA) Negative Urine Ketones Trace H Urine Blood 2+ H Urine Nitrite Negative Urine Bilirubin Negative Urine Urobilinogen 0.2 Ur Leukocyte Esterase 1+ H Urine WBC (Auto) 12 Urine RBC (Auto) 65-70 Urine Casts (Auto) 10 U Epithel Cells (Auto) 4.0 Urine Bacteria (Auto) 33.2 Urine Yeast (Auto) None seen Active Medications Generic Name Dose Route Start Last Admin Trade Name Freq PRN Reason Stop Dose Admin Acetaminophen 500 mg 07/22/19 17:18 Ofirmev Injection - IVPB Q6H PRN PAIN LEVEL 7 - 10 Enoxaparin Sodium 40 mg 07/23/19 10:00 07/23/19 11:08 Lovenox - SQ 40 mg DAILY TRICIA Administration Sodium Chloride 1,000 mls @ 100 mls/hr 07/22/19 18:00 07/23/19 06:16 Normal Saline - IV 100 mls/hr ASDIR TRICIA Administration Ceftriaxone Sodium 1 gm/ 50 mls @ 100 mls/hr 07/23/19 17:00 Dextrose IVPB DAILY TRICIA Ondansetron HCl 4 mg 07/22/19 21:38 Zofran Injection IVPUSH Q6H PRN NAUSEA Pantoprazole Sodium 40 mg 07/22/19 18:00 07/23/19 11:08 Protonix Iv IVPUSH 40 mg DAILY TRICIA Administration ASSESSMENT/PLAN: 73 y/o F with PMH metastatic breast CA (last chemo 07/05/2019 ago; with mets to large intestines, spine per pt. Stage 3A on granix, navelbine), s/p R mastectomy , s/p radiation, on chemo, w/R colectomy and ileostomy, b/l ureteral stents for past retention, hx past abdominal sx, who presents for abdominal pain over the last week. Heme/Onc was called to evaluate for metastatic breast CA. Metastatic Breast CA -pt on chemo: granix, navelbine -last session on 07/05 -follows with Dr. Edward/Lorraine -continue outpt infusion schedule Patrial SBO: resolving -likely related to prior abdominal surgeries -Ostomy bag with fecal contents -pt is no longer nauseated. No longer with vomiting -Per pt, belly is softer now. No rigidity on my exam Dispo: We will continue to follow the patient. Thank you for this consultative opportunity. Visit type - Emergency Visit Emergency Visit: No - New Patient This patient is new to me today: Yes Date on this admission: 07/25/19 - Critical Care Critical Care patient: No ATTENDING PHYSICIAN STATEMENT I saw and evaluated the patient. I reviewed the resident's note and discussed the case with the resident. I agree with the resident's findings and plan as documented. SUBJECTIVE: OBJECTIVE: ASSESSMENT AND PLAN:
[2019-07-23] MEDS ORDERED: MORPHINE SULFATE 2 MG/ML VIAL IVPUSH ONE (13:51)
[2019-07-23] MEDS ORDERED: DEXTROSE 5%-WATER - 50 ML IVPB ONE (17:42)
[2019-07-23] MEDS ORDERED: cefTRIAXone SODIUM 1 GM VIAL ONE (17:42)
--- NOTE | 2019-07-23 18:15 | PN ---
Teaching Attending Note Name of Resident: German Blair ATTENDING PHYSICIAN STATEMENT I saw and evaluated the patient. I reviewed the resident's note and discussed the case with the resident. I agree with the resident's findings and plan as documented. SUBJECTIVE: Patient seen and examined Presented with multiple bouts of emesis CT raises concern for partial SBO Extensive history of metastatic breast ca -( lobular ca) -- mets to stomach, pelvis, bones, mesentery Has been treated with tamoxifen, aromatase inhibitor, faslodex, taxol, gemzar, navelbine, RT, s/p right mastectomy in past. 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 OBJECTIVE: ASSESSMENT AND PLAN:
[2019-07-23] MEDS: CEFTRIAXONE 1 GM in DEXTROSE 5%-WATER - 50 ML IVPB SCH (18:28)
[2019-07-23] MEDS: KETOROLAC TROMETHAMINE 30 MG/1 ML VIAL IVPUSH PRN (18:40)
[2019-07-24 08:37] LABS: BASO % 0.3 % (0-2.0); EOS % 0.5 % (0-4.5); HEMATOCRIT 26.4 % (32.4-45.2); HEMOGLOBIN 8.9 GM/dL (10.7-15.3); LYMPH % 9.8 % (8-40); MCH 33.6 pg (25.7-33.7); MCHC 33.7 g/dl (32.0-36.0); MEAN CELL VOLUME 99.8 fl (80-96); MEAN PLT VOLUME 6.8 fl (7.5-11.1); MONO % 10.6 % (3.8-10.2); NEUT % 78.8 % (42.8-82.8); PLATELET COUNT 249 K/MM3 (134-434); RBC 2.64 M/mm3 (3.60-5.2); RDW 16.6 % (11.6-15.6); WHITE BLOOD COUNT 2.9 K/mm3 (4.0-10.0)
[2019-07-24 09:10] LABS: BLOOD UREA NITROGEN 25.1 mg/dL (7-18); CALCIUM 8.7 mg/dL (8.5-10.1); MAGNESIUM 1.8 mg/dL (1.8-2.4); PHOSPHOROUS 3.3 mg/dL (2.5-4.9); POTASSIUM 4.2 mmol/L (3.5-5.1)
[2019-07-24] MEDS ORDERED: DEXTROSE 50%-WATER - 25 GM/50 ML VIAL IVPUSH ONE ×2 (09:19→09:45)
[2019-07-24] MEDS: DEXTROSE 5%-NORMAL SALINE 1,000 ML IV SCH (09:30)
--- NOTE | 2019-07-24 09:31 | PN ---
Progress Note (short form) - Note Progress Note: Patient seen and examined No abdominal pain Less abdominal distension Ileostomy with watery dark contents Last Vital Signs Temp Pulse Resp BP Pulse Ox 98.4 F 85 18 155/84 96 07/24/19 05:00 07/24/19 05:00 07/24/19 05:00 07/24/19 05:00 07/23/19 21:00 HEENT: PAT, EOM Intact Oropharynx: No thrush, No mucositis Neck: Supple Nodes: Without adenopathy Breasts: right chest wall no recurrence - telangiectasia ; left breast no masses Cor: RSR, No murmurs, No gallops Lungs: Clear to P&A Abd: Soft,hypoactive bowel sounds , No organomegaly, functioning ileostomy Ext:No significant edema Skin: No rashes, Integument intact CBC, BMP 07/24/19 07:49 07/24/19 07:49 Current Medications Generic Name Dose Route Start Last Admin Trade Name Freq PRN Reason Stop Dose Admin Acetaminophen 500 mg 07/22/19 17:18 Ofirmev Injection - IVPB Q6H PRN PAIN LEVEL 7 - 10 Enoxaparin Sodium 40 mg 07/23/19 10:00 07/23/19 11:08 Lovenox - SQ 40 mg DAILY TRICIA Administration Ceftriaxone Sodium 1 gm/ 50 mls @ 100 mls/hr 07/23/19 17:00 07/23/19 18:28 Dextrose IVPB 100 mls/hr DAILY TRICIA Administration Dextrose/Sodium Chloride 1,000 mls @ 100 mls/hr 07/24/19 09:30 D5-Ns - IV ASDIR TRICIA Ketorolac Tromethamine 30 mg 07/23/19 18:15 07/23/19 18:40 Toradol Injection - IVPUSH 07/28/19 18:14 30 mg Q6H PRN Administration PAIN LEVEL 4 - 6 Ondansetron HCl 4 mg 07/22/19 21:38 Zofran Injection IVPUSH Q6H PRN NAUSEA Pantoprazole Sodium 40 mg 07/22/19 18:00 07/23/19 11:08 Protonix Iv IVPUSH 40 mg DAILY TRICIA Administration Impression: Metastatic breast ca Bone,peritoneal , gastric mets Partial SBO Hypoglycemia - for fluid change anemia Neutropenia Plan: D5NS to correct hypoglycemia Anemia/neutropenia secondary to chemotherapy- to monitor SBO -for diet advancement, management per surgery.
[2019-07-24] MEDS ORDERED: DEXTROSE 50%-WATER 25 GM/50 ML DISP.SYRIN ONE (09:36)
[2019-07-24] MEDS ORDERED: DEXTROSE 50%-WATER 25 GM/50 ML DISP.SYRIN IVPUSH ONE (09:45)
--- NOTE | 2019-07-24 10:10 | PN ---
Addendum entered and electronically signed by María Andrew, RESIDENT 07/24/19 13 :19: d/w sx, without obstruction on recent film - diet advanced to clears Original Note: Progress Note (short form) - Note Progress Note: Hospitalist Medicine Very pleasant. States that she is feeling better, however ate ice on own and now has reflux. Hypoglycemic, but asymptomatic. Push of d25gm given, started on D5NS for correction Vitals 07/24/19 05:00 Temperature 98.4 F Pulse Rate 85 Respiratory 18 Rate Blood Pressure 155/84 Physical Exam General: resting in bed, in NAD. pleasant HEENT: NCAT, PERRLA neck: supple cardio: S1, S2, RRR. no r/m/g pulm: CTA b/l, no accessory m usage abdomen: without suprapubic tenderness. 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 large R adnexal cystic mass slightly increased in size. abdom sono:earlier exam underestimates the amount of ascites probably due to obscuring bowel gas. on CT a small to moderate amount of abdominal and pelvis ascites was noted. in addition, CT showed a 10.7cmx9.9 x 8.4cm R adnexal cystic lesion which can't be appreciate on the current ultrasound exam. 07/23: KUB: no free air, large heart. bolus changes R base and bilateral ureteral stents/pigtail catheters. proximal ends are in the renal pelves and the distal ends are in the bladder. there is no sign of free air, organomegaly, or calcifications of significance. there is air in the stomach and some air in the small bowel loops. this could represent a focal small bowel ileus. 07/24: Abd flat and upright: right and L double-J ureteral stent again seen. Bowel gas pattern that is nonobstructive. No gross organomegaly. Moderate elevation of the R hemidiaphagm. Bibasilar atelectatic changes with a small L and likely minimal R pleural effusion again seen. Degenerative changes in the lower lumbar spine. Deformity of the L inferior lumbar spine, likely old fx. Round artifact compatible with ostomy bag projecting over R lower abdomen / pelvis. ASSESSMENT/PLAN: 73 y/o F with PMH metastatic breast CA (last chemo 2 weeks ago; with mets to large intestines, spine per pt. Stage 3A on granix, navelbine), s/p R mastectomy , s/p radiation, on chemo, w/ileostomy, b/l ureteral stents for past retention, hx past abdominal sx, who presents for abdominal pain over the last week. Pt found to have partial SBO. #Partial SBO - resolving -possible 2/2 adhesions from previous abdominal sx -sx consulted: Dr. Yeboah -without NGT per sx -on IVF; switched to d5NS 100 cc/hr -will follow lyluca, i/o -IV tylenol PRN for pain control -IV zofran PRN for nausea. qtc is ok 436ms -f/u repeat AXR in AM, serial abdom exams #ascites (seen on CTAP) likely 2/2 malignancy -pt without cirrhosis. platelets WNL, albumin WNL -may require tap if symptomatic. has increased from previous #hx dysuria -will tx for UTI - c/w rocephin (Day 3) -urine cx - proteus <10,000. however sx improving - can d/c abx tomorrow #metastatic breast CA -last chemo 2 weeks ago -w/ mets to large intestine, spine per pt -stage 3A, on granix, navelbine -onc consult: Dr. Peters; c/w outpt infusions #hx b/l ureteral stents, w/ increasing hydronephrosis -as seen on recent CTAP -uro: Dr. Stein; requires no acute intervention, chronic -w/o current retention #hx large R adnexal cystic mass -will need c/t monitor as outpt #F/E/N d5NS 100 cc/hr as hypoglycemic continue to follow lytes NPO. bowel rest until SBO resolves #PPX DVT: lovenox, as pt high risk for clot w/ CA GI: on protonix #Dispo cont'd monitoring on med-surg <Jana Andrewna - Last Filed: 07/24/19 12:59> - Note Progress Note: Seen and examined; please see resident note for further historical information. I personally verified all limon historical information and exam findings. Personally interpreted all imaging and diagnostics and reviewed appropriate consults. I reviewed all labs and vital signs as per resident note and EMR as documented. I agree with the above assessment and plan unless supplemented by myself in the following. Abdominal pain is improved, no further nausea or vomiting. The patient has liquid stool in the ileostomy bag along with some gas. 10 system review of systems was done and negative except for HPI. VS, labs, imaging reviewed NAD, AAO, resting comfortably in bed. 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 No surgical intervention indicated at this time, still without nasogastric tube per Dr. Yeboah. Liquid stool and air continue to fill bag Advance diet per surgey when clinically appropriate. Will discuss if obstipation is possible given no clear transition point. If improved and tolerating PO can DC home with ongoing onc and PCP followup. Full code <SandraGeorge - Last Filed: 07/24/19 13:53>
[2019-07-24] MEDS ORDERED: DEXTROSE 5%-WATER - 50 ML IVPB ONE (10:29)
[2019-07-24] MEDS ORDERED: cefTRIAXone SODIUM 1 GM VIAL ONE (10:29)
[2019-07-24] MEDS: ENOXAPARIN NA (PORCINE) 40 MG/0.4 ML DISP.SYRIN SQ SCH (10:34)
[2019-07-24] MEDS: PANTOPRAZOLE SODIUM 40 MG VIAL IVPUSH SCH (10:34)
[2019-07-24] MEDS: KETOROLAC TROMETHAMINE 30 MG/1 ML VIAL IVPUSH PRN (10:34)
[2019-07-24] MEDS: CEFTRIAXONE 1 GM in DEXTROSE 5%-WATER - 50 ML IVPB SCH (10:35)
--- NOTE | 2019-07-24 21:37 | PN ---
Progress Note (short form) - Note Progress Note: Attending Surgeon No c/o; she states the ileostomy is functioning VSS AF abdo-liquid stool and air in the ileostomy baG AXR'S-no obstruction IMP: resolved sbo PLAN: clear liquid diet and advance as tolerated. Amador Yeboah MD FACS -
[2019-07-25] MEDS: DEXTROSE 5%-NORMAL SALINE 1,000 ML IV SCH (02:37)
[2019-07-25] MEDS: KETOROLAC TROMETHAMINE 30 MG/1 ML VIAL IVPUSH PRN ×2 (02:37→10:42)
[2019-07-25 08:20] LABS: BASO % 0.7 % (0-2.0); EOS % 2.9 % (0-4.5); HEMATOCRIT 26.6 % (32.4-45.2); HEMOGLOBIN 9.2 GM/dL (10.7-15.3); LYMPH % 15.4 % (8-40); MCH 34.2 pg (25.7-33.7); MCHC 34.8 g/dl (32.0-36.0); MEAN CELL VOLUME 98.4 fl (80-96); MEAN PLT VOLUME 6.9 fl (7.5-11.1); MONO % 15.7 % (3.8-10.2); NEUT % 65.3 % (42.8-82.8); PLATELET COUNT 248 K/MM3 (134-434)
[2019-07-25 08:44] LABS: CALCIUM 8.3 mg/dL (8.5-10.1); MAGNESIUM 1.6 mg/dL (1.8-2.4); PHOSPHOROUS 2.6 mg/dL (2.5-4.9); POTASSIUM 3.7 mmol/L (3.5-5.1)
[2019-07-25] MEDS ORDERED: DEXTROSE 5%-WATER - 50 ML IVPB ONE (10:09)
[2019-07-25] MEDS ORDERED: cefTRIAXone SODIUM 1 GM VIAL ONE (10:09)
[2019-07-25] MEDS: ENOXAPARIN NA (PORCINE) 40 MG/0.4 ML DISP.SYRIN SQ SCH (10:50)
[2019-07-25] MEDS: CEFTRIAXONE 1 GM in DEXTROSE 5%-WATER - 50 ML IVPB SCH (10:51)
[2019-07-25] MEDS: PANTOPRAZOLE SODIUM 40 MG VIAL IVPUSH SCH (10:51)
[2019-07-25 11:07] VITALS: PULSE 77
[2019-07-25] MEDS ORDERED: MAGNESIUM SULF 50% (8.12 MEQ/2 ML-1 GM VIAL) IVPB ONE (11:27)
--- NOTE | 2019-07-25 11:28 | PN ---
Progress Note (short form) - Note Progress Note: patient seen and examined Diet advanced to clear liquids Last Vital Signs Temp Pulse Resp BP Pulse Ox 98.6 F 77 20 146/84 96 07/25/19 11:06 07/25/19 11:06 07/25/19 11:06 07/25/19 11:06 07/24/19 21:00 HEENT: PAT, EOM Intact Breasts: right chest wall telangiectasia Cor: RSR, No murmurs, No gallops Lungs: Clear to P&A Abd: Soft hypoactive bowel sounds No organomegaly Ext:No significant edema Skin: No rashes, Integument intact CBC, BMP 07/25/19 07:39 07/25/19 07:39 Current Medications Generic Name Dose Route Start Last Admin Trade Name Freq PRN Reason Stop Dose Admin Acetaminophen 500 mg 07/22/19 17:18 Ofirmev Injection - IVPB Q6H PRN PAIN LEVEL 7 - 10 Enoxaparin Sodium 40 mg 07/23/19 10:00 07/25/19 10:50 Lovenox - SQ 40 mg DAILY TRICIA Administration Ceftriaxone Sodium 1 gm/ 50 mls @ 100 mls/hr 07/23/19 17:00 07/25/19 10:51 Dextrose IVPB 100 mls/hr DAILY TRICIA Administration Ketorolac Tromethamine 30 mg 07/23/19 18:15 07/25/19 10:42 Toradol Injection - IVPUSH 07/28/19 18:14 30 mg Q6H PRN Administration PAIN LEVEL 4 - 6 Ondansetron HCl 4 mg 07/22/19 21:38 Zofran Injection IVPUSH Q6H PRN NAUSEA Pantoprazole Sodium 40 mg 07/22/19 18:00 07/25/19 10:51 Protonix Iv IVPUSH 40 mg DAILY TRICIA Administration Pneumococcal 13-Valent Conj Vacc 0.5 ml 07/25/19 08:00 Prevnar 13 Syringe - IM 07/25/19 08:01 .ONCE ONE Impression: Metastatic breast ca Resolving SBO Anemia Hypomagnesemia Plan : per surgery -advance diet as tolerated Replete Mg++
--- NOTE | 2019-07-25 13:56 | PN ---
Progress Note (short form) - Note Progress Note: Hospitalist Medicine C/o RHOADES otherwise asymptomatic. Has been tolerating clear liquid diet. Will advance to reg diet Vitals 07/25/19 11:06 Temperature 98.6 F Pulse Rate 77 Respiratory 20 Rate Blood Pressure 146/84 Physical Exam general: well-appearing. pleasant, in NAD HEENT: NCAT, PERRLA neck: supple. no cervical lymphadenopathy appreciated cardio: S1, S2, RRR. no r/m/g pulm: CTA b/l. no accessory m usage abdomen: soft, nontender. normoactive bowel sounds. no guarding or rigidity LE: 2+ pulses, no edema Laboratory Tests 07/25/19 07/25/19 07:39 07:39 WBC 3.0 L Hgb 9.2 L Hct 26.6 L Plt Count 248 Sodium 140 Potassium 3.7 Chloride 112 H Carbon Dioxide 22 BUN 22.0 H Creatinine 1.0 Random Glucose 132 H Calcium 8.3 L Phosphorus 2.6 Magnesium 1.6 L Microbiology 07/22/19 18:30 Urine - Urine Clean Catch Urine Culture - Final Proteus Species EKG: NSR, vent rate 99bpm, qtc 436ms CTAP: bilateral pleural effusions and basilar atelectasis, small to moderate ascites increased since 05/22/2019, bilateal ureteral stents with increasing hydronephrosis, RLQ colostomy with distended bowel loops suggesting partial obstruction. large R adnexal cystic mass slightly increased in size. abdom sono:earlier exam underestimates the amount of ascites probably due to obscuring bowel gas. on CT a small to moderate amount of abdominal and pelvis ascites was noted. in addition, CT showed a 10.7cmx9.9 x 8.4cm R adnexal cystic lesion which can't be appreciate on the current ultrasound exam. 07/23: KUB: no free air, large heart. bolus changes R base and bilateral ureteral stents/pigtail catheters. proximal ends are in the renal pelves and the distal ends are in the bladder. there is no sign of free air, organomegaly, or calcifications of significance. there is air in the stomach and some air in the small bowel loops. this could represent a focal small bowel ileus. 07/24: Abd flat and upright: right and L double-J ureteral stent again seen. Bowel gas pattern that is nonobstructive. No gross organomegaly. Moderate elevation of the R hemidiaphagm. Bibasilar atelectatic changes with a small L and likely minimal R pleural effusion again seen. Degenerative changes in the lower lumbar spine. Deformity of the L inferior lumbar spine, likely old fx. Round artifact compatible with ostomy bag projecting over R lower abdomen / pelvis. ASSESSMENT/PLAN: 73 y/o F with PMH metastatic breast CA (last chemo 2 weeks ago; with mets to large intestines, spine per pt. Stage 3A on granix, navelbine), s/p R mastectomy , s/p radiation, on chemo, w/ileostomy, b/l ureteral stents for past retention, hx past abdominal sx, who presents for abdominal pain over the last week. Pt found to have partial SBO. #Partial SBO - resolved -possible 2/2 adhesions from previous abdominal sx -sx consulted: Dr. Yeboah -diet advanced to regular -have d/c IVF -will follow lytes, i/o -IV tylenol PRN for pain control -IV zofran PRN for nausea. qtc is ok 436ms #ascites (seen on CTAP) likely 2/2 malignancy -pt without cirrhosis. platelets WNL, albumin WNL -may require tap if symptomatic. has increased from previous #hx dysuria -will tx for UTI - c/w rocephin (Day 4) -urine cx - proteus <10,000. however sx improving -will complete 7-10 day course given complicated UTI w/ past ureteral stents #metastatic breast CA -last chemo 2 weeks ago -w/ mets to large intestine, spine per pt -stage 3A, on granix, navelbine -onc consult: Dr. Peters; c/w outpt infusions #hx b/l ureteral stents, w/ increasing hydronephrosis -as seen on recent CTAP -uro: Dr. Stein; requires no acute intervention, chronic -w/o current retention #hx large R adnexal cystic mass -will need c/t monitor as outpt #F/E/N off IVF continue to follow lytes reg diet, check if tolerates #PPX DVT: lovenox, as pt high risk for clot w/ CA GI: on protonix #Dispo anticipate d/c 24-48 hrs needs to be seen by PT has [facility] home services set up by if needs SNF will have issue continuing chemo tx <María Andrew - Last Filed: 07/25/19 14:21> - Note Progress Note: Seen and examined; I agree with thee above assessment and plan and DCS as documented. Discussed with resident and indicated subspecialists. Independently verified all limon historical elements and PE features. All questions answered. No further subjective issues; VS labs imaging reviewed NAD, AAO HR wnl, +s1/2 NT ND +BS Neuro baseline with no new FNDs or speech changes Agreee with resident asseesment and plan as documented above. Continue current txplan. <George Flores - Last Filed: 08/25/19 07:11>
[2019-07-25] MEDS ORDERED: MAGNESIUM OXIDE 400 MG TABLET (FP) PO ONE (13:58)
[2019-07-25] MEDS ORDERED: PNEUMOC 13-VAL CONJ-DIP CRM/PF 0.5 ML DISP.SYRIN IM ONE (15:30)
[2019-07-25 15:46] VITALS: BP 142/79; TEMP 98.1
--- NOTE | 2019-07-25 17:52 | DS ---
Physical Exam: SUBJECTIVE: Patient seen and examined at bedside. Ambulated on own with family in the hallway multiple times. OBJECTIVE: Vital Signs Period Temp Pulse Resp BP Sys/Avila Pulse Ox Last 24 Hr 98.1 F-98.6 F 75-77 18-20 141-146/74-84 96 Physical Exam General: resting in bed, in NAD. pleasant HEENT: NCAT, PERRLA neck: supple cardio: S1, S2, RRR. no r/m/g pulm: CTA b/l, no accessory m usage abdomen: without suprapubic tenderness. no guarding or rigidity hypoactive bowel sounds, dark fluid in ileostomy pouch LE: 2+ pulses, no edema neuro: territory representative 2-12 grossly intact LABS Laboratory Results - last 24 hr 07/25/19 07/25/19 07:39 07:39 WBC 3.0 L RBC 2.70 L Hgb 9.2 L Hct 26.6 L MCV 98.4 H MCH 34.2 H MCHC 34.8 RDW 17.0 H Plt Count 248 MPV 6.9 L Absolute Neuts (auto) 1.9 Neutrophils % 65.3 Lymphocytes % 15.4 D Monocytes % 15.7 H Eosinophils % 2.9 D Basophils % 0.7 Nucleated RBC % 0 Sodium 140 Potassium 3.7 Chloride 112 H Carbon Dioxide 22 Anion Gap 6 L BUN 22.0 H Creatinine 1.0 Est GFR (CKD-EPI)AfAm 64.73 Est GFR (CKD-EPI)NonAf 55.85 Random Glucose 132 H Calcium 8.3 L Phosphorus 2.6 Magnesium 1.6 L Microbiology 07/22/19 18:30 Urine - Urine Clean Catch Urine Culture - Final Proteus Species EKG: NSR, vent rate 99bpm, qtc 436ms CTAP: bilateral pleural effusions and basilar atelectasis, small to moderate ascites increased since 05/22/2019, bilateal ureteral stents with increasing hydronephrosis, RLQ colostomy with distended bowel loops suggesting partial obstruction. large R adnexal cystic mass slightly increased in size. abdom sono:earlier exam underestimates the amount of ascites probably due to obscuring bowel gas. on CT a small to moderate amount of abdominal and pelvis ascites was noted. in addition, CT showed a 10.7cmx9.9 x 8.4cm R adnexal cystic lesion which can't be appreciate on the current ultrasound exam. 07/23: KUB: no free air, large heart. bolus changes R base and bilateral ureteral stents/pigtail catheters. proximal ends are in the renal pelves and the distal ends are in the bladder. there is no sign of free air, organomegaly, or calcifications of significance. there is air in the stomach and some air in the small bowel loops. this could represent a focal small bowel ileus. 07/24: Abd flat and upright: right and L double-J ureteral stent again seen. Bowel gas pattern that is nonobstructive. No gross organomegaly. Moderate elevation of the R hemidiaphagm. Bibasilar atelectatic changes with a small L and likely minimal R pleural effusion again seen. Degenerative changes in the lower lumbar spine. Deformity of the L inferior lumbar spine, likely old fx. Round artifact compatible with ostomy bag projecting over R lower abdomen / pelvis. HOSPITAL COURSE: Date of Admission:07/22/19 Date of Discharge: 07/25/19 Admit diagnosis: partial SBO 73 y/o F with PMH metastatic breast CA (last chemo 2 weeks ago; with mets to large intestines, spine per pt. Stage 3A on granix, navelbine), s/p R mastectomy , s/p radiation, on chemo, w/ileostomy, b/l ureteral stents for past retention, hx past abdominal sx, who presents for abdominal pain over the last week. Pt found to have partial SBO. #Partial SBO - resolving -possible 2/2 adhesions from previous abdominal sx -sx consulted: Dr. Yeboah -without NGT per sx -was on IVF; switched to d5NS 100 cc/hr as was hypoglycemic. this resolved during course -will follow lytes, i/o -IV tylenol PRN for pain control -IV zofran PRN for nausea. qtc is ok 436ms -repeat AXR revealed improvement, diet was advanced #ascites (seen on CTAP) likely 2/2 malignancy -pt without cirrhosis. platelets WNL, albumin WNL -will need continued outpt f/u #hx dysuria -tx for UTI for 4 days, was d/c on 4 days of keflex 500mg BID -urine cx - proteus <10,000, however pt was symptomatic initially #metastatic breast CA -last chemo 2 weeks ago -w/ mets to large intestine, spine per pt -stage 3A, on granix, navelbine -onc consult: Dr. Peters; c/w outpt infusions #hx b/l ureteral stents, w/ increasing hydronephrosis -as seen on recent CTAP -uro: Dr. Stein; requires no acute intervention, chronic -w/o current retention #hx large R adnexal cystic mass -will need c/t monitor as outpt Minutes to complete discharge: 44 <María Andrew - Last Filed: 07/25/19 17:54> Physical Exam: ATTENDING PHYSICIAN STATEMENT I saw and evaluated the patient. I reviewed the resident's note and discussed the case with the resident. I agree with the resident's findings and plan as documented. Independently reviewed all labs, imaging findings and test results. Independently verified all limon historical information and PE findings. Discussed DC planning with resident. No additional complaints per subjective information; stable and has reached maximal benefit from this hospitalization. VS labs imaging reviewed NAD AAO resting in bed HR wnl +s1/2 no mgr NT ND +BS Agree with DC planning as documentated including diet, followups, etc. <George Flores - Last Filed: 08/25/19 05:44> Discharge Summary Problems reviewed: Yes Reason For Visit: PARTIAL SMALL BOWEL OBSTRUCTION Current Active Problems Hydronephrosis (Acute) SBO (small bowel obstruction) (Acute) - Home Medications Comprehensive Discharge Medication List: Ambulatory Orders Calcium Citrate/Magnesium/D3 [Calcium Citrate Chewable Wafer] 2 tab PO DAILY 08/12 Cholecalciferol (Vitamin D3) [Vitamin D3] 3,000 unit PO DAILY 05/08/17 Vitamin B Complex 1 each PO DAILY 05/08/17 Ferrous Sulfate [Feosol] 325 mg PO DAILY 01/15/18 Magnesium Citrate 800 mg PO DAILY 01/15/18 Cephalexin [Keflex] 500 mg PO BID #8 capsule 07/25/19 <María Andrew - Last Filed: 07/25/19 17:54> Problems reviewed: Yes - Home Medications Comprehensive Discharge Medication List: Ambulatory Orders Calcium Citrate/Magnesium/D3 [Calcium Citrate Chewable Wafer] 2 tab PO DAILY 08/12 Cholecalciferol (Vitamin D3) [Vitamin D3] 3,000 unit PO DAILY 05/08/17 Vitamin B Complex 1 each PO DAILY 05/08/17 Ferrous Sulfate [Feosol] 325 mg PO DAILY 01/15/18 Magnesium Citrate 800 mg PO DAILY 01/15/18 Cephalexin [Keflex] 500 mg PO BID #8 capsule 07/25/19 <George Flores - Last Filed: 08/25/19 05:44> Condition: Improved - Instructions Diet, Activity, Other Instructions: You were in the hospital because you had a small bowel obstruction. Your symptoms resolved with fluids and bowel rest. While you were in the hospital, you were also found to have a urinary tract infection, which was treated with IV antibiotics. You are being sent home. Medications You may continue your home medications. We are sending you home on the following antibiotic for your urinary tract infection Keflex. Please take 1 pill of 500mg twice a day, for the next 4 days. Follow up Please follow up with the following physicians upon your discharge: -Your primary care doctor, Dr. Rubin - 1 week -The surgeon who saw you in the hospital, Dr. Yeboah - 1 week to discuss your visit -Your oncologist, Dr. Edward - 1 week for continued follow up Referrals: Amador Yeboah MD [Staff Physician] - 1 Week German Rubin MD [Primary Care Provider] - 1 Week Hitesh Edward MD [Staff Physician] - 1 Week Disposition: HOME This patient is new to me today: No Emergency Visit: No Critical Care patient: No - Discharge Referral Referred to [facility] No <María Andrew - Last Filed: 07/25/19 17:54> This patient is new to me today: No Emergency Visit: No Critical Care patient: No - Discharge Referral Referred to [facility] No <George Flores - Last Filed: 08/25/19 05:44> ATTENDING PHYSICIAN STATEMENT I saw and evaluated the patient. I reviewed the resident's note and discussed the case with the resident. I agree with the resident's findings and plan as documented. SUBJECTIVE: OBJECTIVE: ASSESSMENT AND PLAN: <George Flores - Last Filed: 08/25/19 05:44>
[2019-07-26] MEDS ORDERED: CEFTRIAXONE 1 GM in DEXTROSE 5%-WATER - 50 ML IVPB SCH (10:00)
== END 2019-07-25 18:09 | disposition home or self-care (01) | DRG 389 ==
LOC: JER 10:33 → JERBED 16:16 → J5S 21:10
PROVIDERS: ADMIT Internal Medicine; ATTEND Internal Medicine
DX: K56.600 Partial intestinal obstruction, unspecified as to cause (principal); N13.30 Unspecified hydronephrosis; C78.5 Secondary malignant neoplasm of large intestine and rectum; C79.51 Secondary malignant neoplasm of bone; R18.8 Other ascites; C50.919 Malignant neoplasm of unspecified site of unspecified female breast; E16.2 Hypoglycemia, unspecified; D64.9 Anemia, unspecified; E83.42 Hypomagnesemia; D70.9 Neutropenia, unspecified
CPT/HCPCS: 36415; 74019-TC-FY; 74177-TC; 76700-TC; 80048; 80053; 81003; 82962; 83605; 83735; 84100; 84484; 85025; 87086; 90670; 93005; 93010; 99285-25; G0008; G0009; J0131; J7030; Q2036

== ENCOUNTER 2019-08-04 07:13 | Day surgery (SDC) | payer OTHER ==
[2019-08-04] MEDS ORDERED: DEXAMETHASONE SODIUM PHOSPHATE 8 MG, ONDANSETRON INJECTION 8 MG in SODIUM CHLORIDE 100 ML IVPB ONE (09:30)
[2019-08-04] MEDS ORDERED: VINORELBINE TARTRATE IVPB ONE (10:00)
[2019-08-04] MEDS ORDERED: SODIUM CHLORIDE IVPB ONE (10:00)
[2019-08-04] MEDS ORDERED: SODIUM CHLORIDE 250 ML IV ONE (10:10)
[2019-08-04 12:55] LABS: BASO % 0.6 % (0-2.0); EOS % 0.6 % (0-4.5); HEMATOCRIT 28.7 % (32.4-45.2); HEMOGLOBIN 9.6 GM/dL (10.7-15.3); LYMPH % 10.6 % (8-40); MCH 33.2 pg (25.7-33.7); MCHC 33.3 g/dl (32.0-36.0); MEAN CELL VOLUME 99.5 fl (80-96); MEAN PLT VOLUME 7.1 fl (7.5-11.1); MONO % 8.3 % (3.8-10.2); NEUT % 79.9 % (42.8-82.8); PLATELET COUNT 244 K/MM3 (134-434); RBC 2.89 M/mm3 (3.60-5.2); RDW 17.7 % (11.6-15.6); WHITE BLOOD COUNT 6.1 K/mm3 (4.0-10.0)
[2019-08-04 13:36] LABS: ALBUMIN 3.3 g/dl (3.4-5.0); BILIRUBIN,TOTAL 0.7 mg/dL (0.2-1); BLOOD UREA NITROGEN 11.6 mg/dL (7-18); CALCIUM 9.9 mg/dL (8.5-10.1); CREATININE 0.9 mg/dL (0.55-1.3); MAGNESIUM 1.8 mg/dL (1.8-2.4); POTASSIUM 3.7 mmol/L (3.5-5.1); TOT PROT 6.5 g/dl (6.4-8.2)
[2019-08-04] MEDS ORDERED: KETOROLAC TROMETHAMINE 30 MG/1 ML VIAL IVPB ONE (13:45)
[2019-08-04 17:56] VITALS: BP 143/90; PULSE 111; TEMP 98.3
[2019-08-04] MEDS ORDERED: PORTA CATH FLUSH 10 ML IVPUSH ONE (18:19)
[2019-08-05 04:09] LABS: CARCINOEMBRYONIC ANTIGEN 50.8 ng/mL (0.0-4.7)
== END 2019-08-04 16:30 | disposition home or self-care (01) ==
LOC: JONCCHEMO 07:13 → J7W 11:41 → JONCCHEMO 16:30
PROVIDERS: ATTEND Internal Medicine Hematology & Oncology
PROC: 3E04305 Introduction of Other Antineoplastic into Central Vein, Percutaneous Approach (ICD-10-PCS; principal; 2019-08-04)
PROC: 3E043GC Introduction of Other Therapeutic Substance into Central Vein, Percutaneous Approach (ICD-10-PCS; 2019-08-04)
PROC: 3E043GC Introduction of Other Therapeutic Substance into Central Vein, Percutaneous Approach (ICD-10-PCS; 2019-08-04)
DX: Z51.11 Encounter for antineoplastic chemotherapy (principal); C50.311 Malignant neoplasm of lower-inner quadrant of right female breast; C79.9 Secondary malignant neoplasm of unspecified site; D70.1 Agranulocytosis secondary to cancer chemotherapy; Z17.0 Estrogen receptor positive status [ER+]
CPT/HCPCS: 36415; 80053; 82378; 83735; 85025; 86300; 93970-TC; 96361; 96365; 96409; J2405; J9390

== ENCOUNTER 2019-08-11 07:19 | Day surgery (SDC) | payer OTHER ==
[2019-08-11] MEDS ORDERED: DEXAMETHASONE SODIUM PHOSPHATE 8 MG, ONDANSETRON INJECTION 8 MG in SODIUM CHLORIDE 100 ML IVPB ONE (09:30)
[2019-08-11] MEDS ORDERED: SODIUM CHLORIDE IVPB ONE (10:00)
[2019-08-11] MEDS ORDERED: VINORELBINE TARTRATE IVPB ONE (10:00)
[2019-08-11] MEDS ORDERED: SODIUM CHLORIDE 250 ML IV ONE (10:10)
[2019-08-11] MEDS ORDERED: MAGNESIUM SULF 50% (8.12 MEQ/2 ML-1 GM VIAL) IVPB ONE (11:00)
[2019-08-11] MEDS ORDERED: SODIUM CHLORIDE 0.45%/POT 20 MEQ/1,000 ML INFUS.BAG IV SCH (11:00)
[2019-08-11 11:51] LABS: BASO % 0.8 % (0-2.0); EOS % 1.4 % (0-4.5); HEMATOCRIT 27.5 % (32.4-45.2); HEMOGLOBIN 9.4 GM/dL (10.7-15.3); LYMPH % 15.8 % (8-40); MCH 33.2 pg (25.7-33.7); MCHC 34.2 g/dl (32.0-36.0); MEAN CELL VOLUME 97.1 fl (80-96); MEAN PLT VOLUME 7.8 fl (7.5-11.1); MONO % 6.3 % (3.8-10.2); NEUT % 75.7 % (42.8-82.8); PLATELET COUNT 222 K/MM3 (134-434); RBC 2.83 M/mm3 (3.60-5.2); WHITE BLOOD COUNT 4.3 K/mm3 (4.0-10.0)
[2019-08-11 12:22] LABS: ALBUMIN 3.6 g/dl (3.4-5.0); BILIRUBIN,TOTAL 0.6 mg/dL (0.2-1); CALCIUM 9.6 mg/dL (8.5-10.1); CREATININE 1.4 mg/dL (0.55-1.3); MAGNESIUM 1.5 mg/dL (1.8-2.4); POTASSIUM 3.5 mmol/L (3.5-5.1); TOT PROT 6.6 g/dl (6.4-8.2)
[2019-08-11 16:55] VITALS: TEMP 98.4
[2019-08-11 16:56] VITALS: BP 118/72; PULSE 68
== END 2019-08-11 14:45 | disposition home or self-care (01) ==
LOC: JONCCHEMO 07:19 → J7W 10:56 → JONCCHEMO 14:45
PROVIDERS: ATTEND Internal Medicine Hematology & Oncology
PROC: 3E04305 Introduction of Other Antineoplastic into Central Vein, Percutaneous Approach (ICD-10-PCS; principal; 2019-08-11)
PROC: 3E043GC Introduction of Other Therapeutic Substance into Central Vein, Percutaneous Approach (ICD-10-PCS; 2019-08-11)
PROC: 3E0437Z Introduction of Electrolytic and Water Balance Substance into Central Vein, Percutaneous Approach (ICD-10-PCS; 2019-08-11)
DX: Z51.11 Encounter for antineoplastic chemotherapy (principal); C50.311 Malignant neoplasm of lower-inner quadrant of right female breast; C79.9 Secondary malignant neoplasm of unspecified site; D70.1 Agranulocytosis secondary to cancer chemotherapy; Z17.0 Estrogen receptor positive status [ER+]
CPT/HCPCS: 36415; 80053; 83735; 85025; 96361; 96375; 96409; J2405; J3480; J9390

== ENCOUNTER 2019-08-18 07:14 | Day surgery (SDC) | payer OTHER ==
[2019-08-18] MEDS ORDERED: DEXAMETHASONE SODIUM PHOSPHATE 8 MG, ONDANSETRON INJECTION 8 MG in SODIUM CHLORIDE 100 ML IVPB ONE (10:00)
[2019-08-18] MEDS ORDERED: SODIUM CHLORIDE IVPB ONE (10:30)
[2019-08-18] MEDS ORDERED: SODIUM CHLORIDE 250 ML IV ONE (10:30)
[2019-08-18] MEDS ORDERED: VINORELBINE TARTRATE IVPB ONE (10:30)
[2019-08-18] MEDS ORDERED: MAGNESIUM SULF 50% (8.12 MEQ/2 ML-1 GM VIAL) ONE (12:55)
[2019-08-18 13:06] LABS: BASO % 1.5 % (0-2.0); EOS % 1.1 % (0-4.5); HEMATOCRIT 26.4 % (32.4-45.2); HEMOGLOBIN 8.8 GM/dL (10.7-15.3); LYMPH % 15.6 % (8-40); MCHC 33.2 g/dl (32.0-36.0); MEAN CELL VOLUME 99.3 fl (80-96); MEAN PLT VOLUME 8.1 fl (7.5-11.1); NEUT % 73.8 % (42.8-82.8); PLATELET COUNT 241 K/MM3 (134-434); RBC 2.66 M/mm3 (3.60-5.2); WHITE BLOOD COUNT 2.2 K/mm3 (4.0-10.0)
[2019-08-18] MEDS ORDERED: DEXTROSE 5%-0.45% SALINE 1,000 ML with POTASSIUM CHLORIDE 20 MEQ, MAGNESIUM SULFATE 1 GM IVPB SCH (13:15)
[2019-08-18 13:36] LABS: ALBUMIN 3.4 g/dl (3.4-5.0); BILIRUBIN,TOTAL 0.6 mg/dL (0.2-1); BLOOD UREA NITROGEN 16.1 mg/dL (7-18); CREATININE 1.4 mg/dL (0.55-1.3); MAGNESIUM 1.9 mg/dL (1.8-2.4); POTASSIUM 3.7 mmol/L (3.5-5.1); TOT PROT 6.5 g/dl (6.4-8.2)
[2019-08-18] MEDS ORDERED: DEXAMETHASONE INJECTION 8 MG, ONDANSETRON INJECTION 8 MG in SODIUM CHLORIDE 100 ML IVPB ONE (14:00)
[2019-08-18] MEDS ORDERED: PORTA CATH FLUSH 10 ML IVPUSH ONE (16:40)
[2019-08-18 16:41] VITALS: BP 117/75; PULSE 89; TEMP 97.8
== END 2019-08-18 16:35 | disposition home or self-care (01) ==
LOC: JONCCHEMO 07:14 → J7W 11:51 → JONCCHEMO 16:35
PROVIDERS: ATTEND Internal Medicine Hematology & Oncology
PROC: 3E043GC Introduction of Other Therapeutic Substance into Central Vein, Percutaneous Approach (ICD-10-PCS; principal; 2019-08-18)
PROC: 3E043GC Introduction of Other Therapeutic Substance into Central Vein, Percutaneous Approach (ICD-10-PCS; 2019-08-18)
DX: Z51.11 Encounter for antineoplastic chemotherapy (principal); C50.311 Malignant neoplasm of lower-inner quadrant of right female breast; C79.9 Secondary malignant neoplasm of unspecified site; D70.1 Agranulocytosis secondary to cancer chemotherapy; Z17.0 Estrogen receptor positive status [ER+]
CPT/HCPCS: 36415; 80053; 83735; 85025; 96361; 96365

== ENCOUNTER 2019-09-01 06:30 | Day surgery (SDC) | payer OTHER ==
[2019-09-01] MEDS ORDERED: SODIUM CHLORIDE 250 ML IV ONE (10:00)
[2019-09-01] MEDS ORDERED: DEXAMETHASONE SODIUM PHOSPHATE 8 MG, ONDANSETRON INJECTION 8 MG in SODIUM CHLORIDE 100 ML IVPB ONE (10:00)
[2019-09-01] MEDS ORDERED: SODIUM CHLORIDE IVPB ONE (10:30)
[2019-09-01] MEDS ORDERED: VINORELBINE TARTRATE IVPB ONE (10:30)
[2019-09-01 12:49] LABS: BASO % 0.5 % (0-2.0); EOS % 0.1 % (0-4.5); HEMATOCRIT 29.7 % (32.4-45.2); HEMOGLOBIN 9.9 GM/dL (10.7-15.3); LYMPH % 8.5 % (8-40); MCH 33.5 pg (25.7-33.7); MCHC 33.4 g/dl (32.0-36.0); MEAN CELL VOLUME 100.3 fl (80-96); MEAN PLT VOLUME 7.1 fl (7.5-11.1); MONO % 7.4 % (3.8-10.2); NEUT % 83.5 % (42.8-82.8); PLATELET COUNT 236 K/MM3 (134-434); RBC 2.96 M/mm3 (3.60-5.2); RDW 17.9 % (11.6-15.6); WHITE BLOOD COUNT 6.5 K/mm3 (4.0-10.0)
[2019-09-01 13:09] LABS: ALBUMIN 3.3 g/dl (3.4-5.0); BILIRUBIN,TOTAL 0.8 mg/dL (0.2-1); CALCIUM 9.7 mg/dL (8.5-10.1); CREATININE 1.5 mg/dL (0.55-1.3); MAGNESIUM 1.7 mg/dL (1.8-2.4); POTASSIUM 3.8 mmol/L (3.5-5.1); TOT PROT 6.5 g/dl (6.4-8.2)
[2019-09-01] MEDS ORDERED: MAGNESIUM SULF 50% (8.12 MEQ/2 ML-1 GM VIAL) ONE (13:24)
[2019-09-01] MEDS ORDERED: MAGNESIUM SULF 50% (8.12 MEQ/2 ML-1 GM VIAL) IVPB ONE (14:30)
[2019-09-01 16:27] VITALS: BP 161/95; PULSE 108; TEMP 98.2
[2019-09-01] MEDS ORDERED: PORTA CATH FLUSH 10 ML IVPUSH ONE (16:28)
== END 2019-09-01 16:00 | disposition home or self-care (01) ==
LOC: JONCCHEMO 06:30 → J7W 11:55 → JONCCHEMO 16:00
PROVIDERS: ATTEND Internal Medicine Hematology & Oncology
PROC: 3E04305 Introduction of Other Antineoplastic into Central Vein, Percutaneous Approach (ICD-10-PCS; principal; 2019-09-01)
PROC: 3E043GC Introduction of Other Therapeutic Substance into Central Vein, Percutaneous Approach (ICD-10-PCS; 2019-09-01)
PROC: 3E043GC Introduction of Other Therapeutic Substance into Central Vein, Percutaneous Approach (ICD-10-PCS; 2019-09-01)
DX: Z51.11 Encounter for antineoplastic chemotherapy (principal); C50.311 Malignant neoplasm of lower-inner quadrant of right female breast; C79.51 Secondary malignant neoplasm of bone; Z17.0 Estrogen receptor positive status [ER+]
CPT/HCPCS: 36415; 80053; 83735; 85025; 96361; 96365; 96367; 96409; J9390

== ENCOUNTER 2019-09-08 05:25 | Day surgery (SDC) | payer OTHER ==
[2019-09-08] MEDS ORDERED: DEXAMETHASONE SODIUM PHOSPHATE 8 MG, ONDANSETRON INJECTION 8 MG in SODIUM CHLORIDE 100 ML IVPB ONE (10:00)
[2019-09-08] MEDS ORDERED: SODIUM CHLORIDE IVPB ONE (10:30)
[2019-09-08] MEDS ORDERED: SODIUM CHLORIDE 250 ML IV ONE (10:30)
[2019-09-08] MEDS ORDERED: VINORELBINE TARTRATE IVPB ONE (10:30)
[2019-09-08] MEDS ORDERED: MAGNESIUM SULF 50% (8.12 MEQ/2 ML-1 GM VIAL) ONE (12:20)
[2019-09-08] MEDS ORDERED: POTASSIUM CHLORIDE 20 MEQ, MAGNESIUM SULFATE 1 GM in DEXTROSE 5%-0.45% SALINE 1,000 ML IVPB SCH (12:45)
[2019-09-08] MEDS ORDERED: KETOROLAC TROMETHAMINE 30 MG/1 ML VIAL IVPB ONE (12:45)
[2019-09-08 12:59] LABS: EOS % 0.7 % (0-4.5); HEMATOCRIT 27.7 % (32.4-45.2); HEMOGLOBIN 9.6 GM/dL (10.7-15.3); MCH 34.3 pg (25.7-33.7); MCHC 34.6 g/dl (32.0-36.0); MEAN CELL VOLUME 99.3 fl (80-96); MEAN PLT VOLUME 8.5 fl (7.5-11.1); MONO % 3.1 % (3.8-10.2); NEUT % 81.2 % (42.8-82.8); PLATELET COUNT 226 K/MM3 (134-434); RBC 2.79 M/mm3 (3.60-5.2); WHITE BLOOD COUNT 4.2 K/mm3 (4.0-10.0)
[2019-09-08 13:25] LABS: ALBUMIN 3.5 g/dl (3.4-5.0); BILIRUBIN,TOTAL 0.7 mg/dL (0.2-1); BLOOD UREA NITROGEN 14.2 mg/dL (7-18); CALCIUM 9.6 mg/dL (8.5-10.1); CREATININE 1.3 mg/dL (0.55-1.3); MAGNESIUM 1.8 mg/dL (1.8-2.4); POTASSIUM 3.6 mmol/L (3.5-5.1); TOT PROT 6.6 g/dl (6.4-8.2)
[2019-09-08 16:26] LABS: HYALINE CASTS 2 /lpf (0-8); URINE APPEARANCE CLEAR; URINE BACTERIA 35.6 /hpf (NEGATIVE); URINE BILIRUBIN NEGATIVE (NEGATIVE); URINE COLOR YELLOW; URINE GLUCOSE (UA) NEGATIVE (NEGATIVE); URINE KETONE NEGATIVE (NEGATIVE); URINE LEUK ESTERASE NEGATIVE (NEGATIVE); URINE NITRITE NEGATIVE (NEGATIVE); URINE PROTEIN 1+ (NEGATIVE); URINE RBC 23 /hpf (0-4); URINE UROBILINOGEN 0.2 mg/dL (0.2-1.0); URINE WBC 6 /hpf (0-5)
[2019-09-09 10:34] VITALS: BP 156/91; PULSE 81; TEMP 98.9
== END 2019-09-08 18:22 | disposition home or self-care (01) ==
LOC: JONCCHEMO 05:25 → J7W 11:55 → JONCCHEMO 18:22
PROVIDERS: ATTEND Internal Medicine Hematology & Oncology
PROC: 3E0437Z Introduction of Electrolytic and Water Balance Substance into Central Vein, Percutaneous Approach (ICD-10-PCS; principal; 2019-09-08)
DX: E86.0 Dehydration (principal); C50.311 Malignant neoplasm of lower-inner quadrant of right female breast; C79.51 Secondary malignant neoplasm of bone; Z17.0 Estrogen receptor positive status [ER+]
CPT/HCPCS: 36415; 80053; 81003; 83735; 85025; 86038; 87086; 96360; 96361

== ENCOUNTER 2019-09-13 12:47 | Inpatient (IN) | payer OTHER ==
--- NOTE | 2019-09-13 13:11 | PDOC ---
History of Present Illness - General Chief Complaint: Pain Stated Complaint: PELVIC PAIN Time Seen by Provider: 09/13/19 13:10 - History of Present Illness Initial Comments: 09/13/19 14:54 Pt is a 73y/o female with metastatic breast cancer on Navelbine and iliostomy who presents with muscle spasms and weakness. She has been off Navelbine about 2 weeks due to weakness. She is normally ambulatory without aid but has needed a walker in the last week. She also began to have arm spasms then abdominal spasms during this time. Yesterday, she was standing and felt weak, so she grabbed on to her walker then felt pain in her right arm like she "pulled a muscle." She now has pain with movement. She was concerned living alone that she may pass out and was in a large amount of pain, so presented to ED today. She has decreased PO intake. Past History - Past Medical History Allergies/Adverse Reactions: Allergies Allergy/AdvReac Type Severity Reaction Status Date / Time No Known Drug Allergies Allergy Verified 09/13/19 12:58 Home Medications: Ambulatory Orders Calcium Citrate/Magnesium/D3 [Calcium Citrate Chewable Wafer] 2 tab PO DAILY 08/12 Cholecalciferol (Vitamin D3) [Vitamin D3] 3,000 unit PO DAILY 05/08/17 Vitamin B Complex 1 each PO DAILY 05/08/17 Ferrous Sulfate [Feosol] 325 mg PO DAILY 01/15/18 Magnesium Citrate 800 mg PO DAILY 01/15/18 Cyclobenzaprine HCl 10 mg PO Q8H 09/13/19 Ondansetron HCl [Zofran] 4 mg PO Q8H 09/13/19 Tramadol HCl 50 mg Q6H 09/13/19 Anemia: Yes Asthma: No Cancer: Yes (right breast, lymph nodes, mets to large intestines,bone) Cardiac Disorders: No CVA: No COPD: No CHF: No Dementia: No Diabetes: No GI Disorders: Yes (DIVERTICULOSIS, COLON ADENOMA) Disorders: Yes (LYMPH NODES COMPRESSED TUBES) HTN: No Hypercholesterolemia: No Liver Disease: No Seizures: No Thyroid Disease: No - Surgical History Abdominal Surgery: Yes (RT HEMICOLECTOMY WITH ILEOSTOMY 2014 WITH OTHER PROCEDURES) Appendectomy: No Cardiac Surgery: No Cholecystectomy: No Lung Surgery: No Neurologic Surgery: No Orthopedic Surgery: No - Immunization History Immunization Up to Date: Yes - Psycho Social/Smoking Cessation Hx Smoking Status: No Smoking History: Never smoked Have you smoked in the past 12 months: No Number of Cigarettes Smoked Daily: 0 Hx Alcohol Use: No Drug/Substance Use Hx: No Substance Use Type: None Hx Substance Use Treatment: No Review of Systems - Review of Systems Constitutional: Yes: Weakness. No: Chills, Diaphoresis, Fever Respiratory: No: Shortness of Breath Cardiac (ROS): No: Chest Pain ABD/GI: No: Nausea, Vomiting Neurological: No: Headache, Dizziness *Physical Exam - Vital Signs Last Vital Signs Temp Pulse Resp BP Pulse Ox 98.8 F 120 H 18 98/56 L 98 09/13/19 12:54 09/13/19 12:54 09/13/19 12:54 09/13/19 12:54 09/13/19 12:54 - Physical Exam General Appearance: Yes: Nourished, Appropriately Dressed. No: Apparent Distress HEENT: positive: EOMI, IRINA Neck: positive: Trachea midline Respiratory/Chest: positive: Lungs Clear Cardiovascular: positive: Regular Rhythm, Tachycardia Gastrointestinal/Abdominal: positive: Normal Bowel Sounds, Other (ostomy in place with soft brown stool). 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 She has been off Navelbine about 2 weeks due to weakness and has had decreased PO intake. differential: dehydration, failure to thrive, electrolyte imbalance, malignancy , PE orders: CBC, CMP, UA, blood and urine cx, EKG, CXR, 1 L NS bolus 09/13/19 16:53 Ofirmev 1g for pain 09/13/19 17:47 140/76 HR 89 Discharge - Discharge Information Problems reviewed: Yes Clinical Impression/Diagnosis: Hypotension Qualifiers: Hypotension type: other hypotension type Qualified Code(s): I95.89 - Other hypotension - Follow up/Referral - Patient Discharge Instructions - Post Discharge Activity
[2019-09-13] MEDS ORDERED: SODIUM CHLORIDE 1,000 ML IV STA (13:45)
[2019-09-13 15:44] LABS: VENOUS PC02 52.8 mmHg (38-52); VENOUS PH 7.38 (7.31-7.41); VENOUS PO2 < 49 mmHg (28-48)
[2019-09-13 15:45] LABS: BASO % 0.6 % (0-2.0); EOS % 0.7 % (0-4.5); HEMATOCRIT 27.1 % (32.4-45.2); HEMOGLOBIN 9.1 GM/dL (10.7-15.3); LYMPH % 14.9 % (8-40); MCH 32.9 pg (25.7-33.7); MCHC 33.5 g/dl (32.0-36.0); MEAN PLT VOLUME 7.3 fl (7.5-11.1); MONO % 14.2 % (3.8-10.2); NEUT % 69.6 % (42.8-82.8); PLATELET COUNT 271 K/MM3 (134-434); RBC 2.76 M/mm3 (3.60-5.2); RDW 16.9 % (11.6-15.6); WHITE BLOOD COUNT 2.8 K/mm3 (4.0-10.0)
[2019-09-13 15:52] LABS: EPI CELLS 1.2 /HPF (0-5/HPF); HYALINE CASTS 1 /lpf (0-8); PH,URINE >= 9.0 (5.0-8.0); URINE APPEARANCE CLEAR; URINE BACTERIA 16.8 /hpf (NEGATIVE); URINE BILIRUBIN NEGATIVE (NEGATIVE); URINE COLOR YELLOW; URINE GLUCOSE (UA) NEGATIVE (NEGATIVE); URINE KETONE NEGATIVE (NEGATIVE); URINE LEUK ESTERASE NEGATIVE (NEGATIVE); URINE NITRITE NEGATIVE (NEGATIVE); URINE PROTEIN TRACE (NEGATIVE); URINE RBC 200 /hpf (0-4); URINE UROBILINOGEN 0.2 mg/dL (0.2-1.0); URINE WBC 4 /hpf (0-5)
[2019-09-13 15:55] LABS: INR 1.01 (0.83-1.09); PROTHROMBIN TIME (PATIENT) 11.9 SEC (9.7-13.0)
[2019-09-13 15:57] LABS: ACTIVATED PTT 30.2 SECONDS (25.2-36.5)
--- NOTE | 2019-09-13 16:15 | PDOC ---
Documentation entered by Laila Saenz SCRIBE, acting as scribe for Ryan Mackay MD. Ryan Mackay MD: This documentation has been prepared by the Dany mesa Adrianna, SCRIBE, under my direction and personally reviewed by me in its entirety. I confirm that the documentation accurately reflects all work, treatment, procedures, and medical decision making performed by me. Attending Attestation - Resident Resident Name: YobaniMarii - ED Attending Attestation I have performed the following: I have examined & evaluated the patient, The case was reviewed & discussed with the resident, I agree w/resident's findings & plan, Exceptions are as noted - HPI HPI: The patient is a 73 year old female, with a significant right breast CA ( currently undergoing chemo), PMH of anemia, colon CA (s/p colostomy bag), diverticulosis, and lymph nodes compressed tubes, who presents to the ED for evaluation of muscles spasms and generalized weakness for 2 weeks, progressively worse in the past 2 days. Patient notes she has been experiencing diffuse, generalized weakness with associated loss of appetite, which she attributes to a drop in her magnesium 2/2 chemo. She has discontinued chemo for the past 2 weeks without any changes in her symptoms. She has been using a rolling walker for the past week because of her weakness and fear of falling 2/ 2 muscle spasming. Patient notes she was walking 2 days ago, when she got a muscle spasm in her RUE. She got scared that she was going to fall, and immediately clenched onto her rolling walker. After this episode, she endorses pain, tightness, and stiffness to the RUE, worse at the right forearm. She additionally complains of pelvic girdle pain from her muscle spasms. Patient has tried flexeril, without any relief of symptoms. She lives alone at home, and came to the ED as she was concerned about potentially syncopizing. Denies fever, chills, chest pain, SOB, nausea, vomit, diarrhea, constipation, dysuria, hematuria. Allergies: NKA, NKDA Surgical History: Colostomy bag Social History: Denies EtOH, tobacco, or illicit drug use PCP: Dr. Rubin ONC: Dr. Edward - Physicial Exam PE: 09/13/19 18:30 Agree with resident exam - Medical Decision Making 09/13/19 18:31 73yo F with MMP including metastatic breast ca, on chemo, last 2 weeks ago presents to the ED with 2 weeks of progressive generalized weakness, dehydration Labs with anemia to hgb 9.1 but close to baseline and leukopenia to 2 Exam with dry MM Concern for failure to thrive, pt lives alone, is unable to care for herself at home and is not eating or drinking Vitals on arrival with hypotension and tachycardia, most likely 2/2 dehydration Vitals improved with hydration in ED, but pt is still too weak to ambulate, was not able to ambulate in the ED to the rest room Pt is unsafe DC at this time. Plan to admit for FTT, dehydration Hospitalist has been paged, awaiting call back Heart Score/ECG Review #1 09/13/19 18:33 EKG read and int by me: NSR, rate 92, normal axis and intervals, no BERNADINE ED Treatment Course - LABORATORY CBC & Chemistry Diagram: 09/13/19 14:45 09/13/19 14:10 - ADDITIONAL ORDERS Additional order review: Laboratory Results 09/13/19 09/13/19 09/13/19 14:45 14:45 14:45 PT with INR INR PTT (Actin FS) VBG pH 7.38 POC VBG pCO2 52.8 H POC VBG pO2 < 49 H VBG HCO3 30.8 H VBG O2 Sat (Aixa) 41.2 L VBG Base Excess 5.3 H Lactic Acid 1.4 Troponin I Urine Color Yellow Urine Appearance Clear Urine pH >= 9.0 H Ur Specific [place] 1.008 L Urine Protein Trace Urine Glucose (UA) Negative Urine Ketones Negative Urine Blood 3+ H Urine Nitrite Negative Urine Bilirubin Negative Urine Urobilinogen 0.2 Ur Leukocyte Esterase Negative Urine WBC (Auto) 4 Urine RBC (Auto) 200 Urine Casts (Auto) 1 U Epithel Cells (Auto) 1.2 Urine Bacteria (Auto) 16.8 09/13/19 09/13/19 14:40 14:40 PT with INR 11.90 INR 1.01 PTT (Actin FS) 30.2 VBG pH POC VBG pCO2 POC VBG pO2 VBG HCO3 VBG O2 Sat (Aixa) VBG Base Excess Lactic Acid Troponin I Cancelled Urine Color Urine Appearance Urine pH Ur Specific [place] Urine Protein Urine Glucose (UA) Urine Ketones Urine Blood Urine Nitrite Urine Bilirubin Urine Urobilinogen Ur Leukocyte Esterase Urine WBC (Auto) Urine RBC (Auto) Urine Casts (Auto) U Epithel Cells (Auto) Urine Bacteria (Auto) 09/13/19 14:45 RBC 2.76 L MCV 98.0 H MCHC 33.5 RDW 16.9 H MPV 7.3 L D Neutrophils % 69.6 Lymphocytes % 14.9 Monocytes % 14.2 H D Eosinophils % 0.7 Basophils % 0.6 - RADIOLOGY Radiograph Interpretation: EXAM#: TYPE/EXAM: RESULT: [id number] RAD/CHEST X-RAY PORTABLE* Portable chest: Sepsis A single view the chest has been submitted. There is a large heart, prominent knob and prominent hilar markings. There is an elevated right hemidiaphragm with some atelectatic changes at the bases. There is a right jugular line and the tip is in the SVC. There is no sign of a pneumothorax. The bones and soft tissues are intact. Correlation recommended. Reported By: Troy Sage MD 09/13/19 15:46 - Medications Given in the ED: ED Medications Discontinued Medications Generic Name Dose Route Start Last Admin Trade Name Freq PRN Reason Stop Dose Admin Sodium Chloride 1,000 mls @ 1,000 mls/hr 09/13/19 13:45 09/13/19 14:16 Normal Saline - IV 09/13/19 14:44 1,000 mls/hr ASDIR STA Administration
[2019-09-13 16:30] LABS: ALBUMIN 3.4 g/dl (3.4-5.0); BILIRUBIN,TOTAL 0.6 mg/dL (0.2-1); BLOOD UREA NITROGEN 19.2 mg/dL (7-18); CALCIUM 9.5 mg/dL (8.5-10.1); CREATININE 1.5 mg/dL (0.55-1.3); MAGNESIUM 1.9 mg/dL (1.8-2.4); PHOSPHOROUS 3.9 mg/dL (2.5-4.9); POTASSIUM 4.1 mmol/L (3.5-5.1); TOT PROT 6.2 g/dl (6.4-8.2)
[2019-09-13] MEDS ORDERED: ACETAMINOPHEN 1000 MG/100 ML VIAL (NON FORMULARY) IVPB ONE (16:38)
[2019-09-13] MEDS ORDERED: ACETAMINOPHEN INJECTION 100 ML IVPB ONE (16:51)
--- NOTE | 2019-09-13 19:36 | PN ---
Teaching Attending Note Name of Resident: Zeinab Mccord ATTENDING PHYSICIAN STATEMENT I saw and evaluated the patient. I reviewed the resident's note and discussed the case with the resident. I agree with the resident's findings and plan as documented. SUBJECTIVE: Patient is a 73 year old woman with a PMH of Right breast cancer with metastasis (s/p mastectomy/radiotherapy and currently undergoing chemotherapy - Navelbine), Anemia, Colon cancer (s/p colostomy bag), Diverticulosis, Bilateral hydronephrosis, Ureteral stents and Pleural effusion who presents to the ER for evaluation of muscles spasms and generalized weakness for 2 weeks, progressively worse in the past 2 days. Patient notes she has been experiencing diffuse, generalized weakness with associated loss of appetite, which she attributes to a drop in her magnesium due to chemotherapy. She has been off chemotherapy for the past 2 weeks without any changes in her symptoms. She has been using a rolling walker for the past week because of her weakness and fear of falling due to muscle spasm. Patient notes she was walking 2 days ago, when she got a muscle spasm in her RUE. After this episode, she endorses pain, tightness, and stiffness to the RUE, worse at the right forearm. She additionally complains of pelvic girdle pain from her muscle spasms. Patient tried flexeril, without any relief of symptoms. Patient lives alone, is unable to care for herself at home and is not eating or drinking. She was concerned about potentially passing out. Denies fever, chills, chest pain, SOB, nausea, vomit, diarrhea, constipation, dysuria or hematuria. Denies alcohol, tobacco or illicit drug use. No sick contacts or recent travels. OBJECTIVE: Alert Vital Signs Period Temp Pulse Resp BP Sys/Avila Pulse Ox Last 24 Hr 98.8 F 86-120 17-18 98-152/56-88 95-98 HEENT: No Jaundice, eye redness or discharge, PERRLA, EOMI. Normocephalic, atraumatic. External ears are normal and hearing is grossly intact. No nasal discharge. Neck: Supple, nontender. No palpable adenopathy or thyromegaly. No JVD Chest: Good effort. Clear to auscultation and percussion. Heart: Regular. No S3, rub or murmur Abdomen: Not distended, soft, nontender and no HSM. Colostomy in place. No rebound or guarding. Normal bowel sounds. Ext: Peripheral pulses intact. No leg edema. Skin: Warm and dry. No petechiae, rash or ecchymosis. Neuro: Alert. Oriented x3. CN 2-12 grossly intact. Sensation grossly intact in all four extremities and DTR are symmetric. Psych: Appropriate mood and affect. Good insight. Home Medications Medication Instructions Recorded Calcium Citrate/Magnesium/D3 2 tab PO DAILY 05/08/17 [Calcium Citrate Chewable Wafer] Cholecalciferol (Vitamin D3) 3,000 unit PO DAILY 05/08/17 [Vitamin D3] Vitamin B Complex 1 each PO DAILY 05/08/17 Ferrous Sulfate [Feosol] 325 mg PO DAILY 01/15/18 Magnesium Citrate 800 mg PO DAILY 01/15/18 Cephalexin [Keflex] 500 mg PO BID #8 capsule 07/25/19 Abnormal Lab Results 09/13/19 09/13/19 09/13/19 14:10 14:45 14:45 WBC 2.8 L RBC 2.76 L Hgb 9.1 L Hct 27.1 L MCV 98.0 H RDW 16.9 H MPV 7.3 L D Monocytes % 14.2 H D POC VBG pCO2 POC VBG pO2 VBG HCO3 VBG O2 Sat (Aixa) VBG Base Excess Sodium 135 L Chloride 97 L Anion Gap 7 L BUN 19.2 H Creatinine 1.5 H AST 52 H Total Protein 6.2 L Urine pH >= 9.0 H Ur Specific [place] 1.008 L Urine Blood 3+ H 09/13/19 14:45 WBC RBC Hgb Hct MCV RDW MPV Monocytes % POC VBG pCO2 52.8 H POC VBG pO2 < 49 H VBG HCO3 30.8 H VBG O2 Sat (Aixa) 41.2 L VBG Base Excess 5.3 H Sodium Chloride Anion Gap BUN Creatinine AST Total Protein Urine pH Ur Specific [place] Urine Blood ASSESSMENT AND PLAN: 1. Failure to thrive - Likely due to a combination of several factors including physical and psychological burden of metastatic breast cancer, absent family/social support network, depression, effects of chemotherapy, anemia, CKD , poor intake and dehydration. The primary objective is to improve her quality of life by aggressively addressing remediable problems including anemia correction, fluid resuscitation with IV NS, nutritional support including supplements/appetite stimulants and generous emotional support. Consult social work to help identify "Cancer survivor" support groups for referral upon discharge. Leukopenia likely due to cancer/chemotherapy - there is no evidence of acute infection - will continue to monitor closely. CXR shows cardiomegaly with bibasilar atelectasis (R>L). EKG shows NSR with LAE and nonspecific ST-T wave changes. Will get CPK to rule out rhabdomyolysis. Hematuria likely due to metastasis. Will continue comprehensive care for all of patients comorbid conditions. 2. CKD - Likely chiefly due to obstructive uropathy. CPK pending. Will consult nephrology and avoid nephrotoxic agents such as NSAIDS, aminoglycosides, contrast dyes and certain Alternative medicine products. 3. Anemia - Likely multifactorial. Will do basic anemia work up including serial stool guaiacs, reticulocyte count and iron studies. Ferrous sulfate is no use for her - once iron deficiency is confirmed, she should get IV Venofer 500 mg x two doses and then get Procrit. 4. DVT prophylaxis - Heparin 5000u sq tid. 5. Advance directives - Full code
[2019-09-13] MEDS: HEPARIN NA (PORCINE) 5,000 UNITS/ML 1ML VIAL SQ SCH (20:08)
--- NOTE | 2019-09-13 21:16 | HP ---
CHIEF COMPLAINT: abdominal cramping/spasm PCP: Oncologist: Dr. Cheyanne García HISTORY OF PRESENT ILLNESS: 73 y/o F, pmh of Breast cancer stage 3A w/ mets to the spine, peritoneal cavity , colon, spine currently off chem with Navelbine, s/p right mastectomy, s/p radiation, b/l ureteral stents w/ b/l hydro, mild b/l pleural effusion, presents c/o of weakness of 1-2 weeks duration and abdominal cramping of 1 day duration. She said that when she has these intense cramps, she has to grab something or lay down for the cramps to be relieved. She reports that 2 weeks ago she came off chemo under Dr. Edward's supervision and had a CAT scan completed. She also reports that she has never needed a walker but began to use one since her weakness started. She is scheduled to meet with Dr. Edward on Saturday 09/16. She has been on and off chemo for 2 years now. She denies an LOC, dizziness, head trauma, palpitations, vertigo, tinnitis, chest pain, shortness of breath, abdominal pain, changes in vision, headaches. ER course was notable for: (1)CXR: Large heart, prominent knob, prominent hilar markings, some atelectic changes. Right jugular lne and tip in the SVC (2)trops neg x1 (3)1L NS Recent Travel: denies PAST MEDICAL HISTORY: Breast cancer stage 3A w/ mets to the spine, peritoneal cavity, colon, spine, s/ p right mastectomy, s/p radiation, b/l ureteral stents w/ b/l hydro, mild b/l pleural effusion No cardiac conditions, no stress test done, no pacemakers, mild pericardial effusion noted by muck hauler Colonoscopy done prior to surgical resection of bowel. PAST SURGICAL HISTORY: Right colectomy; small bowel resection and end ileostomy for metastatic breast carcinoma to the peritoneal cavity. Social History: Smoking: denies Alcohol: denies Drugs: denies Allergies No Known Drug Allergies Allergy (Verified 09/13/19 12:58) HOME MEDICATIONS: Home Medications Medication Instructions Recorded Calcium Citrate/Magnesium/D3 2 tab PO DAILY 05/08/17 [Calcium Citrate Chewable Wafer] Cholecalciferol (Vitamin D3) 3,000 unit PO DAILY 05/08/17 [Vitamin D3] Vitamin B Complex 1 each PO DAILY 05/08/17 Ferrous Sulfate [Feosol] 325 mg PO DAILY 01/15/18 Magnesium Citrate 800 mg PO DAILY 01/15/18 Cephalexin [Keflex] 500 mg PO BID #8 capsule 07/25/19 Cyclobenzaprine HCl 10 mg PO Q8H 09/13/19 Ondansetron HCl [Zofran] 4 mg PO Q8H 09/13/19 Tramadol HCl 50 mg Q6H 09/13/19 REVIEW OF SYSTEMS CONSTITUTIONAL: Admits: generalized weakness, malaise, loss of appetite, weight change Absent: fever, chills, diaphoresis, CARDIOVASCULAR: Absent: chest pain, syncope, palpitations, irregular heart rate, lightheadedness , peripheral edema RESPIRATORY: Absent: cough, shortness of breath, dyspnea with exertion, orthopnea, wheezing, stridor, hemoptysis GASTROINTESTINAL: Admits: abdominal cramping Absent: abdominal pain, abdominal distension, nausea, vomiting, diarrhea, constipation, melena, hematochezia GENITOURINARY: Absent: dysuria, frequency, urgency, hesitancy, hematuria, MUSCULOSKELETAL: Absent: myalgia, arthralgia, joint swelling, HEMATOLOGIC/IMMUNOLOGIC: Absent: easy bleeding, easy bruising, lymphadenopathy, frequent infection PHYSICAL EXAMINATION Vital Signs - 24 hr 09/13/19 09/13/19 12:54 18:17 Temperature 98.8 F Pulse Rate 120 H Pulse Rate [ 86 Left Brachial] Respiratory 18 17 Rate Blood Pressure 98/56 L Blood Pressure 152/88 [Left Arm] O2 Sat by Pulse 98 95 Oximetry (%) GENERAL: Awake, alert, and fully oriented, in no acute distress. EYES: Pupils equal, round and reactive to light, extraocular movements intact, sclera anicteric, conjunctiva clear. No lid lag. EARS, NOSE, THROAT: oropharynx clear without exudates. Moist mucous membranes. LUNGS: Breath sounds equal, clear to auscultation bilaterally. No wheezes, and no crackles. No accessory muscle use. HEART: Regular rate and rhythm, normal S1 and S2 without murmur, rub or gallop. ABDOMEN: Soft, nontender, not distended, normoactive bowel sounds, no guarding, no rebound, no masses. Ileostomy bag on the RLQ. MUSCULOSKELETAL: Normal range of motion at all joints. No bony deformities or tenderness. No CVA tenderness. UPPER EXTREMITIES: 2+ pulses, warm, well-perfused. LOWER EXTREMITIES: 2+ pulses, warm, well-perfused. NEUROLOGICAL: Normal speech. Normal gait. SKIN: Warm, dry, normal turgor, no rashes or lesions noted, normal capillary refill. Laboratory Results - last 24 hr CBC,CMP WBC 2.8 K/mm3 (4.0-10.0) L 09/13/19 14:45 RBC 2.76 M/mm3 (3.60-5.2) L 09/13/19 14:45 Hgb 9.1 GM/dL (10.7-15.3) L 09/13/19 14:45 Hct 27.1 % (32.4-45.2) L 09/13/19 14:45 MCV 98.0 fl (80-96) H 09/13/19 14:45 MCH 32.9 pg (25.7-33.7) 09/13/19 14:45 MCHC 33.5 g/dl (32.0-36.0) 09/13/19 14:45 RDW 16.9 % (11.6-15.6) H 09/13/19 14:45 Plt Count 271 K/MM3 (134-434) 09/13/19 14:45 MPV 7.3 fl (7.5-11.1) L D 09/13/19 14:45 Absolute Neuts (auto) 2.0 K/mm3 (1.5-8.0) 09/13/19 14:45 Neutrophils % 69.6 % (42.8-82.8) 09/13/19 14:45 Lymphocytes % 14.9 % (8-40) 09/13/19 14:45 Monocytes % 14.2 % (3.8-10.2) H D 09/13/19 14:45 Eosinophils % 0.7 % (0-4.5) 09/13/19 14:45 Basophils % 0.6 % (0-2.0) 09/13/19 14:45 Nucleated RBC % 0 % (0-0) 09/13/19 14:45 Sodium 135 mmol/L (136-145) L 09/13/19 14:10 Potassium 4.1 mmol/L (3.5-5.1) 09/13/19 14:10 Chloride 97 mmol/L (98-107) L 09/13/19 14:10 Carbon Dioxide 31 mmol/L (21-32) 09/13/19 14:10 Anion Gap 7 MMOL/L (8-16) L 09/13/19 14:10 BUN 19.2 mg/dL (7-18) H 09/13/19 14:10 Creatinine 1.5 mg/dL (0.55-1.3) H 09/13/19 14:10 Est GFR (CKD-EPI)AfAm 39.64 09/13/19 14:10 Est GFR (CKD-EPI)NonAf 34.21 09/13/19 14:10 Random Glucose 84 mg/dL (74-106) 09/13/19 14:10 Lactic Acid 1.0 mmol/L (0.4-2.0) 09/13/19 18:33 Calcium 9.5 mg/dL (8.5-10.1) 09/13/19 14:10 Phosphorus 3.9 mg/dL (2.5-4.9) 09/13/19 14:10 Magnesium 1.9 mg/dL (1.8-2.4) 09/13/19 14:10 Total Bilirubin 0.6 mg/dL (0.2-1) 09/13/19 14:10 AST 52 U/L (15-37) H 09/13/19 14:10 ALT 19 U/L (13-61) 09/13/19 14:10 Alkaline Phosphatase 94 U/L (45-117) 09/13/19 14:10 Troponin I Cancelled 09/13/19 14:40 Total Protein 6.2 g/dl (6.4-8.2) L 09/13/19 14:10 Albumin 3.4 g/dl (3.4-5.0) 09/13/19 14:10 ASSESSMENT/PLAN: 73 y/o F, pmh of Breast cancer stage 3A w/ mets to the spine, peritoneal cavity , colon, spine, s/p right mastectomy, s/p radiation, b/l ureteral stents w/ b/l hydro, mild b/l pleural effusion, presents c/o of weakness of 1-2 weeks duration and abdominal cramping of 1 day duration #Abdominal cramping likely 2/2 to dehydration 2/2 Failure to thrive vs Navelbine adverse effect Pt admits to decreased food and fluid intake Increase pt's quality of life provide nutritional support with appetite stimulate, ensure Social work for referral to "Cancer survivor support group" upon discharge IVF gentle at 45 Zofran for nausea Motrin for pain Flexeril #Leukopenia 2/2 to chemo no signs of infxn trends labs CPK to r/o rhabdo #Hematuria likely 2/[address] a/p (09/10)- increased right and developing left pleural effusion, no mets to chest, small amoutn of ascites, severe b/l hydronephrosis w/ ureteral stents, slight increase in size of large right pelvic cystic mass. No acute path in the abdomen or pelvis. #Anemia likely 2/2 to decreased appetite Nephro consult can be considered in am #Breast cancer w/ mets Currently off Navelbine monitor labs Edward consulted #DVTppx hep sq TID FEN IVF at 45 monitor lytes Regular diet Dispo: f/u Heme/onc consult, trend labs, monitor on obs Visit type - Emergency Visit Emergency Visit: Yes ED Registration Date: 09/13/19 Care time: The patient presented to the Emergency Department on the above date and was hospitalized for further evaluation of their emergent condition. - New Patient This patient is new to me today: Yes Date on this admission: 09/16/19 - Critical Care Critical Care patient: No ATTENDING PHYSICIAN STATEMENT I saw and evaluated the patient. I reviewed the resident's note and discussed the case with the resident. I agree with the resident's findings and plan as documented. SUBJECTIVE: OBJECTIVE: ASSESSMENT AND PLAN:
[2019-09-13] MEDS: SODIUM CHLORIDE 1,000 ML IV SCH (22:08)
[2019-09-13] MEDS ORDERED: HEPARIN NA (PORCINE) 5,000 UNITS/ML 1ML VIAL ONE (22:22)
[2019-09-13] MEDS: INSULIN SLIDING SCALE (NOVOLOG) 1 VIAL SQ SCH (22:56)
[2019-09-13] MEDS ORDERED: CYCLOBENZAPRINE HCL 10 MG TABLET (FP) ONE (22:57)
[2019-09-13] MEDS ORDERED: ONDANSETRON *ODT* 4 MG TABLET ONE (22:57)
[2019-09-13] MEDS: CYCLOBENZAPRINE HCL 10 MG TABLET (FP) PO SCH (23:00)
[2019-09-13] MEDS: ONDANSETRON 4 MG TABLET PO SCH (23:12)
[2019-09-14] MEDS: CYCLOBENZAPRINE HCL 10 MG TABLET (FP) PO SCH ×3 (06:54→23:18)
[2019-09-14] MEDS: INSULIN SLIDING SCALE (NOVOLOG) 1 VIAL SQ SCH ×4 (06:55→23:18)
[2019-09-14] MEDS: ONDANSETRON 4 MG TABLET PO SCH ×3 (06:55→23:18)
[2019-09-14] MEDS: HEPARIN NA (PORCINE) 5,000 UNITS/ML 1ML VIAL SQ SCH ×4 (06:55→23:18)
[2019-09-14 08:59] LABS: BASO % 1.3 % (0-2.0); EOS % 4.9 % (0-4.5); HEMOGLOBIN 8.4 GM/dL (10.7-15.3); LYMPH % 16.4 % (8-40); MCH 33.2 pg (25.7-33.7); MCHC 33.7 g/dl (32.0-36.0); MEAN CELL VOLUME 98.6 fl (80-96); MEAN PLT VOLUME 6.9 fl (7.5-11.1); MONO % 22.4 % (3.8-10.2); PLATELET COUNT 219 K/MM3 (134-434); RBC 2.54 M/mm3 (3.60-5.2); RDW 16.7 % (11.6-15.6)
[2019-09-14 09:04] LABS: WHITE BLOOD COUNT 1.9 K/mm3 (4.0-10.0)
[2019-09-14 09:27] LABS: BILIRUBIN,TOTAL 0.6 mg/dL (0.2-1); BLOOD UREA NITROGEN 18.5 mg/dL (7-18); CALCIUM 9.2 mg/dL (8.5-10.1); CREATININE 1.4 mg/dL (0.55-1.3); MAGNESIUM 1.8 mg/dL (1.8-2.4); PHOSPHOROUS 4.1 mg/dL (2.5-4.9); POTASSIUM 3.8 mmol/L (3.5-5.1); TOT PROT 5.5 g/dl (6.4-8.2)
--- NOTE | 2019-09-14 11:03 | EKG ---
Test Reason : Blood Pressure : / mmHG Vent. Rate : 092 BPM Atrial Rate : 092 BPM P-R Int : 160 ms QRS Dur : 096 ms QT Int : 368 ms P-R-T Axes : 048 012 026 degrees QTc Int : 455 ms NORMAL SINUS RHYTHM POSSIBLE LEFT ATRIAL ENLARGEMENT CANNOT RULE OUT ANTERIOR INFARCT (CITED ON OR BEFORE 22-JUL-2019) ABNORMAL ECG WHEN COMPARED WITH ECG OF 22-JUL-2019 11:55, QUESTIONABLE CHANGE IN INITIAL FORCES OF ANTERIOR LEADS Confirmed by SHANNAN MIRELES MD ([id number]) on 09/14/2019 11:02:47 AM Referred By: Confirmed By:SHANNAN MIRELES MD
[2019-09-14] MEDS ORDERED: INSULIN (NOVOLOG) ASPART 100 UNITS/ML 10ML VIAL ONE (11:37)
[2019-09-14 13:00] LABS: ANISOCYTOSIS 2+; MACROCYTOSIS 0; OVALOCYTE 1+; PLATELET ESTIMATE NORMAL
[2019-09-14] MEDS: SODIUM CHLORIDE 1,000 ML IV SCH ×2 (13:28→23:14)
--- NOTE | 2019-09-14 15:07 | PN ---
Progress Note (short form) - Note Progress Note: SUBJECTIVE: Reports episode of "upper body spasm" lasting minutes. Denies CP or seizure activity. No LOC. No HI. OBJECTIVE: Afebrile, Hemodynamically Stable. Last Vital Signs Temp Pulse Resp BP Pulse Ox 97.8 F 84 18 146/84 93 L 09/14/19 10:00 09/14/19 10:00 09/14/19 10:00 09/14/19 10:00 09/14/19 10:00 HEET - Atraumatic, Normocephalic. Heart - S1, S2, RRR Lungs - decreased air entry at bases. R side portacath. Abdomen - Soft, non-tender. -Ostomy working. Bowel Sounds normal. Extremities - no calf tenderness. Neuro - AAO x 3. Tone/Power normal all extremities. Laboratory Results - last 24 hr 09/13/19 09/13/19 09/13/19 14:10 14:10 14:40 WBC RBC Hgb Hct MCV MCH MCHC RDW Plt Count MPV Absolute Neuts (auto) Neutrophils % Neutrophils % (Manual) Band Neutrophils % Lymphocytes % Lymphocytes % (Manual) Monocytes % Monocytes % (Manual) Eosinophils % Eosinophils % (Manual) Basophils % Basophils % (Manual) Myelocytes % (Man) Promyelocytes % (Man) Blast Cells % (Manual) Nucleated RBC % Metamyelocytes Hypochromia Platelet Estimate Polychromasia Poikilocytosis Anisocytosis Microcytosis Macrocytosis Ovalocytes Acanthocytes (Spur) PT with INR 11.90 INR 1.01 PTT (Actin FS) 30.2 VBG pH POC VBG pCO2 POC VBG pO2 VBG HCO3 VBG O2 Sat (Aixa) VBG Base Excess Sodium 135 L Potassium 4.1 Chloride 97 L Carbon Dioxide 31 Anion Gap 7 L BUN 19.2 H Creatinine 1.5 H Est GFR (CKD-EPI)AfAm 39.64 Est GFR (CKD-EPI)NonAf 34.21 POC Glucometer Random Glucose 84 Lactic Acid Calcium 9.5 Phosphorus 3.9 Magnesium 1.9 Iron TIBC Iron Saturation Unsaturated IBC Total Bilirubin 0.6 AST 52 H ALT 19 Alkaline Phosphatase 94 Creatine Kinase 73 Troponin I 0.02 Total Protein 6.2 L Albumin 3.4 Urine Color Urine Appearance Urine pH Ur Specific [place] Urine Protein Urine Glucose (UA) Urine Ketones Urine Blood Urine Nitrite Urine Bilirubin Urine Urobilinogen Ur Leukocyte Esterase Urine WBC (Auto) Urine RBC (Auto) Urine Casts (Auto) U Epithel Cells (Auto) Urine Bacteria (Auto) Blood Type Cancelled Antibody Screen Cancelled 09/13/19 09/13/19 09/13/19 14:40 14:45 14:45 WBC 2.8 L RBC 2.76 L Hgb 9.1 L Hct 27.1 L MCV 98.0 H MCH 32.9 MCHC 33.5 RDW 16.9 H Plt Count 271 MPV 7.3 L D Absolute Neuts (auto) 2.0 Neutrophils % 69.6 Neutrophils % (Manual) Band Neutrophils % Lymphocytes % 14.9 Lymphocytes % (Manual) Monocytes % 14.2 H D Monocytes % (Manual) Eosinophils % 0.7 Eosinophils % (Manual) Basophils % 0.6 Basophils % (Manual) Myelocytes % (Man) Promyelocytes % (Man) Blast Cells % (Manual) Nucleated RBC % 0 Metamyelocytes Hypochromia Platelet Estimate Polychromasia Poikilocytosis Anisocytosis Microcytosis Macrocytosis Ovalocytes Acanthocytes (Spur) PT with INR INR PTT (Actin FS) VBG pH POC VBG pCO2 POC VBG pO2 VBG HCO3 VBG O2 Sat (Aixa) VBG Base Excess Sodium Potassium Chloride Carbon Dioxide Anion Gap BUN Creatinine Est GFR (CKD-EPI)AfAm Est GFR (CKD-EPI)NonAf POC Glucometer Random Glucose Lactic Acid 1.4 Calcium Phosphorus Magnesium Iron TIBC Iron Saturation Unsaturated IBC Total Bilirubin AST ALT Alkaline Phosphatase Creatine Kinase Troponin I Cancelled Total Protein Albumin Urine Color Urine Appearance Urine pH Ur Specific [place] Urine Protein Urine Glucose (UA) Urine Ketones Urine Blood Urine Nitrite Urine Bilirubin Urine Urobilinogen Ur Leukocyte Esterase Urine WBC (Auto) Urine RBC (Auto) Urine Casts (Auto) U Epithel Cells (Auto) Urine Bacteria (Auto) Blood Type Antibody Screen 09/13/19 09/13/19 09/13/19 14:45 14:45 18:33 WBC RBC Hgb Hct MCV MCH MCHC RDW Plt Count MPV Absolute Neuts (auto) Neutrophils % Neutrophils % (Manual) Band Neutrophils % Lymphocytes % Lymphocytes % (Manual) Monocytes % Monocytes % (Manual) Eosinophils % Eosinophils % (Manual) Basophils % Basophils % (Manual) Myelocytes % (Man) Promyelocytes % (Man) Blast Cells % (Manual) Nucleated RBC % Metamyelocytes Hypochromia Platelet Estimate Polychromasia Poikilocytosis Anisocytosis Microcytosis Macrocytosis Ovalocytes Acanthocytes (Spur) PT with INR INR PTT (Actin FS) VBG pH 7.38 POC VBG pCO2 52.8 H POC VBG pO2 < 49 H VBG HCO3 30.8 H VBG O2 Sat (Aixa) 41.2 L VBG Base Excess 5.3 H Sodium Potassium Chloride Carbon Dioxide Anion Gap BUN Creatinine Est GFR (CKD-EPI)AfAm Est GFR (CKD-EPI)NonAf POC Glucometer Random Glucose Lactic Acid 1.0 Calcium Phosphorus Magnesium Iron TIBC Iron Saturation Unsaturated IBC Total Bilirubin AST ALT Alkaline Phosphatase Creatine Kinase Troponin I Total Protein Albumin Urine Color Yellow Urine Appearance Clear Urine pH >= 9.0 H Ur Specific [place] 1.008 L Urine Protein Trace Urine Glucose (UA) Negative Urine Ketones Negative Urine Blood 3+ H Urine Nitrite Negative Urine Bilirubin Negative Urine Urobilinogen 0.2 Ur Leukocyte Esterase Negative Urine WBC (Auto) 4 Urine RBC (Auto) 200 Urine Casts (Auto) 1 U Epithel Cells (Auto) 1.2 Urine Bacteria (Auto) 16.8 Blood Type Antibody Screen 09/13/19 09/14/19 09/14/19 22:27 06:52 07:00 WBC 1.9 L* RBC 2.54 L Hgb 8.4 L Hct 25.0 L MCV 98.6 H MCH 33.2 MCHC 33.7 RDW 16.7 H Plt Count 219 MPV 6.9 L Absolute Neuts (auto) 1.1 L Neutrophils % 55.0 D Neutrophils % (Manual) 56.0 Band Neutrophils % 2.0 Lymphocytes % 16.4 Lymphocytes % (Manual) 16.0 D Monocytes % 22.4 H Monocytes % (Manual) 18 H Eosinophils % 4.9 H D Eosinophils % (Manual) 4.0 D Basophils % 1.3 Basophils % (Manual) 0.0 Myelocytes % (Man) 0 Promyelocytes % (Man) 0 Blast Cells % (Manual) 0 Nucleated RBC % 0 Metamyelocytes 0 Hypochromia 0 Platelet Estimate Normal Polychromasia 0 Poikilocytosis 1+ Anisocytosis 2+ Microcytosis 2+ Macrocytosis 0 Ovalocytes 1+ Acanthocytes (Spur) 1+ PT with INR INR PTT (Actin FS) VBG pH POC VBG pCO2 POC VBG pO2 VBG HCO3 VBG O2 Sat (Aixa) VBG Base Excess Sodium Potassium Chloride Carbon Dioxide Anion Gap BUN Creatinine Est GFR (CKD-EPI)AfAm Est GFR (CKD-EPI)NonAf POC Glucometer 73 81 Random Glucose Lactic Acid Calcium Phosphorus Magnesium Iron TIBC Iron Saturation Unsaturated IBC Total Bilirubin AST ALT Alkaline Phosphatase Creatine Kinase Troponin I Total Protein Albumin Urine Color Urine Appearance Urine pH Ur Specific [place] Urine Protein Urine Glucose (UA) Urine Ketones Urine Blood Urine Nitrite Urine Bilirubin Urine Urobilinogen Ur Leukocyte Esterase Urine WBC (Auto) Urine RBC (Auto) Urine Casts (Auto) U Epithel Cells (Auto) Urine Bacteria (Auto) Blood Type Antibody Screen 09/14/19 09/14/19 09/14/19 07:00 07:00 11:32 WBC RBC Hgb Hct MCV MCH MCHC RDW Plt Count MPV Absolute Neuts (auto) Neutrophils % Neutrophils % (Manual) Band Neutrophils % Lymphocytes % Lymphocytes % (Manual) Monocytes % Monocytes % (Manual) Eosinophils % Eosinophils % (Manual) Basophils % Basophils % (Manual) Myelocytes % (Man) Promyelocytes % (Man) Blast Cells % (Manual) Nucleated RBC % Metamyelocytes Hypochromia Platelet Estimate Polychromasia Poikilocytosis Anisocytosis Microcytosis Macrocytosis Ovalocytes Acanthocytes (Spur) PT with INR INR PTT (Actin FS) VBG pH POC VBG pCO2 POC VBG pO2 VBG HCO3 VBG O2 Sat (Aixa) VBG Base Excess Sodium 137 Potassium 3.8 Chloride 102 Carbon Dioxide 29 Anion Gap 7 L BUN 18.5 H Creatinine 1.4 H Est GFR (CKD-EPI)AfAm 43.09 Est GFR (CKD-EPI)NonAf 37.18 POC Glucometer 107 Random Glucose 87 Lactic Acid Calcium 9.2 Phosphorus 4.1 Magnesium 1.8 Iron 44 L TIBC 248 L Iron Saturation 17 L Unsaturated IBC 204 Total Bilirubin 0.6 AST 44 H ALT 17 Alkaline Phosphatase 81 Creatine Kinase Troponin I Total Protein 5.5 L Albumin 3.0 L Urine Color Urine Appearance Urine pH Ur Specific [place] Urine Protein Urine Glucose (UA) Urine Ketones Urine Blood Urine Nitrite Urine Bilirubin Urine Urobilinogen Ur Leukocyte Esterase Urine WBC (Auto) Urine RBC (Auto) Urine Casts (Auto) U Epithel Cells (Auto) Urine Bacteria (Auto) Blood Type O POSITIVE Antibody Screen Negative Current Medications Generic Name Dose Route Start Last Admin Trade Name Freq PRN Reason Stop Dose Admin Cyclobenzaprine HCl 10 mg 09/13/19 22:00 09/14/19 13:34 Flexeril - PO 10 mg TID TRICIA Administration Heparin Sodium (Porcine) 5,000 unit 09/13/19 20:30 09/14/19 13:29 Heparin - SQ 5,000 unit TID TRICIA Administration Sodium Chloride 1,000 mls @ 42 mls/hr 09/13/19 20:15 09/14/19 13:28 Normal Saline - IV 42 mls/hr ASDIR TRICIA Administration Insulin Aspart 1 vial 09/13/19 22:00 09/14/19 11:34 Novolog Vial Sliding Scale - SQ Not Given ACHS [facility] Protocol Ondansetron HCl 4 mg 09/13/19 22:00 09/14/19 13:33 Zofran - PO 4 mg TID TRICIA Administration Home Medications Medication Instructions Recorded Calcium Citrate/Magnesium/D3 2 tab PO DAILY 05/08/17 [Calcium Citrate Chewable Wafer] Cholecalciferol (Vitamin D3) 3,000 unit PO DAILY 05/08/17 [Vitamin D3] Vitamin B Complex 1 each PO DAILY 05/08/17 Ferrous Sulfate [Feosol] 325 mg PO DAILY 01/15/18 Magnesium Citrate 800 mg PO DAILY 01/15/18 Cyclobenzaprine HCl 10 mg PO Q8H 09/13/19 Ondansetron HCl [Zofran] 4 mg PO Q8H 09/13/19 Tramadol HCl 50 mg Q6H 09/13/19 ASSESSMENT/PLAN: 73 year old female with history of Metastatic Breast Ca (spine, peritoneal cavity), s/p mastectomy,s/p small bowel resection/R colectomy/end ileostomy due to mets, last CTx 09/01/19, bilateral ureteral stents due to bilateral hydronephrosis, presents with generalized weakness and upper body/torso spasm episode, lasting minutes, resolved spontaneously. Has history of spasm, on flexeril PRN. 1. Generalized weakness/Muscular Spasm Possible side-effects of chemotherapy and tumor burden/chronic disease. Hydration and electrolyte monitoring ongoing. Poor appetite - nutrition consult. Flexeril PRN PT 2. Metastatic Breast Ca (spine, peritoneal cavity), s/p mastectomy, last CTx 09/[address] Chest ?metastatic, no respiratory distress. Approaching neutropenia - no fever/chills. Blood/Urine Cx pending. Hem/Onc consult. 3. Macrocytic Anemia ? sec to CTx. Iron levels borderline. On Ferrous Sulfate. B12/Folate requested. DVT Px - Heparin SQ Visit type - Emergency Visit Emergency Visit: Yes ED Registration Date: 09/13/19 Care time: The patient presented to the Emergency Department on the above date and was hospitalized for further evaluation of their emergent condition. - New Patient This patient is new to me today: Yes Date on this admission: 09/14/19 - Critical Care Critical Care patient: No - Discharge Referral Referred to [facility] Med P.C.: No
--- NOTE | 2019-09-14 21:24 | CONSULT ---
Consult Consult Specialty:: Heme/onc Reason for Consultation:: Dr. Kimbrough - History of Present Illness Chief Complaint: Abdominal cramps History of Present Illness: 73F with invasive lobular ca ER+/Her2- dx in 2008 as [id number] s/p MRM and ddAC/ taxol/RT/femara, found to have metastasis in 2012, s/p multiple lines of therapy (tamoxifen, gemzar, AC), currently on navelbine (c 9d1 on 09/01/19, then held due to fatigue). Also required bilateral stents for hydronephrosis and diverting colostomy 2/[address] T/A/P on 09/10/19 w/increased right and developing left pleural effusion since 12/2018, small amount of ascites , moderately severe bilateral hydronephrosis (despite presence of ureteral stents), not definitively changed since 06/2019, slight increase in size of right adnexa cystic mass (11.4 x 9.3 x 11.2 cm) diverting colostomy with no e/o obstruction. Pt is now admitted with generalized weakness for 1-2 weeks and abdominal cramping x 1 day . No n/v. Normal ostomy output. Poor PO intake for a few weeks. This afternoon, reports that pain nearly resolved. Also feels a little stronger. WBC 1.9 (ANC 1100), Hgb 8.4, plt 219. - Past Medical History [employer]: Yes: Peripheral Neuropathy Cardio/Vascular: Yes: HTN Renal/: Yes: Renal Failure, Renal Inusuff, UTI (hydronephrosis), Other ( obstructive uropathy) - Alcohol/Substance Use Hx Alcohol Use: No - Smoking History Smoking history: Never smoked Have you smoked in the past 12 months: No Aproximately how many cigarettes per day: 0 Home Medications - Allergies Allergies/Adverse Reactions: Allergies Allergy/AdvReac Type Severity Reaction Status Date / Time No Known Drug Allergies Allergy Verified 09/13/19 12:58 - Home Medications Home Medications: Ambulatory Orders Calcium Citrate/Magnesium/D3 [Calcium Citrate Chewable Wafer] 2 tab PO DAILY 08/12 Cholecalciferol (Vitamin D3) [Vitamin D3] 3,000 unit PO DAILY 05/08/17 Vitamin B Complex 1 each PO DAILY 05/08/17 Ferrous Sulfate [Feosol] 325 mg PO DAILY 01/15/18 Magnesium Citrate 800 mg PO DAILY 01/15/18 Cyclobenzaprine HCl 10 mg PO Q8H 09/13/19 Ondansetron HCl [Zofran] 4 mg PO Q8H 09/13/19 Tramadol HCl 50 mg Q6H 09/13/19 Review of Systems - Review of Systems Constitutional: reports: Loss of Appetite, Weakness. denies: Fever Cardiovascular: reports: No Symptoms Respiratory: reports: No Symptoms Gastrointestinal: reports: Abdominal Pain. denies: Melena, Nausea, Vomiting Neurological: reports: No Symptoms Physical Exam Vital Signs: Vital Signs Temperature 98.5 F 09/14/19 18:00 Pulse Rate 88 09/14/19 18:00 Respiratory Rate 18 09/14/19 18:00 Blood Pressure 147/89 09/14/19 18:00 O2 Sat by Pulse Oximetry (%) 93 L 09/14/19 10:00 Constitutional: Yes: No Distress Eyes: Yes: Conjunctiva Clear Cardiovascular: Yes: Regular Rate and Rhythm Respiratory: Yes: Regular, CTA Bilaterally Gastrointestinal: Yes: Soft, Other (ostomy with small amount of brown stool). No: Distention, Tenderness Labs: CBC, BMP 09/14/19 07:00 09/14/19 07:00 Assessment/Plan 73F with metastatic breast cancer on navelbine (c9d1 on 09/01/19 then held due to fatigue) admitted with abdominal cramps which resolved after hydration. ANC 1100 likely 2/2 chemo. Afebrile. Continue to monitor CBC. Pt has appt with Dr. Edward on 09/16.
[2019-09-15] MEDS: INSULIN SLIDING SCALE (NOVOLOG) 1 VIAL SQ SCH ×3 (07:21→16:57)
[2019-09-15] MEDS: ONDANSETRON 4 MG TABLET PO SCH ×3 (07:26→22:51)
[2019-09-15] MEDS: CYCLOBENZAPRINE HCL 10 MG TABLET (FP) PO SCH ×3 (07:26→22:50)
[2019-09-15] MEDS: HEPARIN NA (PORCINE) 5,000 UNITS/ML 1ML VIAL SQ SCH ×4 (07:27→22:50)
--- NOTE | 2019-09-15 11:23 | PN ---
Progress Note (short form) - Note Progress Note: Patient seen and examined Had severe crampy pain prior to admission which has improved Tired, weak, debilitated Anxious Last Vital Signs Temp Pulse Resp BP Pulse Ox 98.7 F 96 H 18 166/99 95 09/15/19 09:48 09/15/19 09:48 09/15/19 09:48 09/15/19 09:48 09/15/19 07:00 HEENT: PAT, EOM Intact Oropharynx: No thrush, No mucositis Neck: Supple Nodes: Without adenopathy Breasts:right chest wall - negative - no recurrence- telangiectasia; left breast - no masses Cor: RSR, No murmurs, No gallops Lungs: Clear to P&A Abd: Soft, Normal bowel sounds, No organomegaly, functioning ileostomy Ext:No significant edema Skin: No rashes, Integument intact CBC, BMP 09/14/19 07:00 09/14/19 07:00 Current Medications Generic Name Dose Route Start Last Admin Trade Name Luz PRN Reason Stop Dose Admin Cyclobenzaprine HCl 10 mg 09/13/19 22:00 09/15/19 07:26 Flexeril - PO 10 mg TID [facility] Administration Heparin Sodium (Porcine) 5,000 unit 09/13/19 20:30 09/15/19 07:27 Heparin - SQ Not Given TID [facility] Sodium Chloride 1,000 mls @ 42 mls/hr 09/13/19 20:15 09/14/19 23:14 Normal Saline - IV Not Given ASDIR [facility]1983 Insulin Aspart 1 vial 09/13/19 22:00 09/15/19 07:21 Novolog Vial Sliding Scale - SQ Not Given ACHS [facility] Protocol Ondansetron HCl 4 mg 09/13/19 22:00 09/15/19 07:26 Zofran - PO 4 mg TID [facility] Administration Impression: Metastatic lobular carcinoma -bone, stomach, peritoneal mes Pelvic "cyst" Anemia Neutropenia S/P chemotherapy Pleural effusion Plan: Neupogen (granix) Monitor CBC -may need transfusion therapy May need "cyst " drainage
[2019-09-15 14:57] LABS: BASO % 1.2 % (0-2.0); EOS % 3.3 % (0-4.5); HEMATOCRIT 27.2 % (32.4-45.2); HEMOGLOBIN 9.1 GM/dL (10.7-15.3); LYMPH % 21.2 % (8-40); MCH 33.5 pg (25.7-33.7); MCHC 33.6 g/dl (32.0-36.0); MEAN CELL VOLUME 99.5 fl (80-96); MEAN PLT VOLUME 7.1 fl (7.5-11.1); MONO % 20.6 % (3.8-10.2); NEUT % 53.7 % (42.8-82.8); PLATELET COUNT 232 K/MM3 (134-434); RBC 2.73 M/mm3 (3.60-5.2); WHITE BLOOD COUNT 2.2 K/mm3 (4.0-10.0)
[2019-09-15 15:13] LABS: BLOOD UREA NITROGEN 25.8 mg/dL (7-18); CALCIUM 9.1 mg/dL (8.5-10.1); CREATININE 1.8 mg/dL (0.55-1.3); POTASSIUM 4.1 mmol/L (3.5-5.1)
[2019-09-15] MEDS: SODIUM CHLORIDE 1,000 ML IV SCH (16:56)
[2019-09-15] MEDS ORDERED: PT OWN MED DRAWER 7, Y5N ONE ×2 (17:32→22:08)
--- NOTE | 2019-09-15 17:34 | PN ---
Progress Note (short form) - Note Progress Note: SUBJECTIVE: Reports episode of "upper body spasm" lasting minutes prompting original presentation - no further episodes since hospitalization. Denies CP or seizure activity. No LOC. No HI. OBJECTIVE: Afebrile, Hemodynamically Stable. Anxious. Last Vital Signs Temp Pulse Resp BP Pulse Ox 99.2 F 92 H 18 147/84 97 09/15/19 14:00 09/15/19 14:00 09/15/19 14:00 09/15/19 14:00 09/15/19 10:00 HEET - Atraumatic, Normocephalic. Heart - S1, S2, RRR Lungs - decreased air entry at bases. R side portacath. Abdomen - Soft, non-tender. -Ostomy working. Bowel Sounds normal. Extremities - no calf tenderness. Neuro - AAO x 3. Tone/Power normal all extremities. Laboratory Results - last 24 hr 09/14/19 09/14/19 09/15/19 07:00 23:17 07:01 WBC RBC Hgb Hct MCV MCH MCHC RDW Plt Count MPV Absolute Neuts (auto) Neutrophils % Lymphocytes % Monocytes % Eosinophils % Basophils % Nucleated RBC % Sodium Potassium Chloride Carbon Dioxide Anion Gap BUN Creatinine Est GFR (CKD-EPI)AfAm Est GFR (CKD-EPI)NonAf POC Glucometer 112 107 Random Glucose Calcium Vitamin B12 591 Serum Folate 29 H 09/15/19 09/15/19 09/15/19 11:39 13:50 13:50 WBC 2.2 L RBC 2.73 L Hgb 9.1 L Hct 27.2 L MCV 99.5 H MCH 33.5 MCHC 33.6 RDW 17.0 H Plt Count 232 MPV 7.1 L Absolute Neuts (auto) 1.2 L Neutrophils % 53.7 Lymphocytes % 21.2 D Monocytes % 20.6 H Eosinophils % 3.3 Basophils % 1.2 Nucleated RBC % 0 Sodium 138 Potassium 4.1 Chloride 102 Carbon Dioxide 28 Anion Gap 8 BUN 25.8 H Creatinine 1.8 H Est GFR (CKD-EPI)AfAm 31.80 Est GFR (CKD-EPI)NonAf 27.44 POC Glucometer 142 Random Glucose 120 H Calcium 9.1 Vitamin B12 Serum Folate 09/15/19 16:55 WBC RBC Hgb Hct MCV MCH MCHC RDW Plt Count MPV Absolute Neuts (auto) Neutrophils % Lymphocytes % Monocytes % Eosinophils % Basophils % Nucleated RBC % Sodium Potassium Chloride Carbon Dioxide Anion Gap BUN Creatinine Est GFR (CKD-EPI)AfAm Est GFR (CKD-EPI)NonAf POC Glucometer 98 Random Glucose Calcium Vitamin B12 Serum Folate Current Medications Generic Name Dose Route Start Last Admin Trade Name Freq PRN Reason Stop Dose Admin Cyclobenzaprine HCl 10 mg 09/13/19 22:00 09/15/19 13:27 Flexeril - PO 10 mg TID TRICIA Administration Heparin Sodium (Porcine) 5,000 unit 09/13/19 20:30 09/15/19 13:49 Heparin - SQ Not Given TID TRICIA Sodium Chloride 1,000 mls @ 75 mls/hr 09/15/19 16:11 09/15/19 16:56 Normal Saline - IV 75 mls/hr ASDIR TRICIA Administration Insulin Aspart 1 vial 09/13/19 22:00 09/15/19 16:57 Novolog Vial Sliding Scale - SQ Not Given ACHS [facility] Protocol Ondansetron HCl 4 mg 09/13/19 22:00 09/15/19 13:27 Zofran - PO 4 mg TID TRICIA Administration Tbo-Filgrastim 480 mcg 09/16/19 10:00 Granix - SQ DAILY [facility] Home Medications Medication Instructions Recorded Calcium Citrate/Magnesium/D3 2 tab PO DAILY 05/08/17 [Calcium Citrate Chewable Wafer] Cholecalciferol (Vitamin D3) 3,000 unit PO DAILY 05/08/17 [Vitamin D3] Vitamin B Complex 1 each PO DAILY 05/08/17 Ferrous Sulfate [Feosol] 325 mg PO DAILY 01/15/18 Magnesium Citrate 800 mg PO DAILY 01/15/18 Cyclobenzaprine HCl 10 mg PO Q8H 09/13/19 Ondansetron HCl [Zofran] 4 mg PO Q8H 09/13/19 Tramadol HCl 50 mg Q6H 09/13/19 ASSESSMENT/PLAN: 73 year old female with history of Metastatic Breast Ca (bone, peritoneal cavity , stomach), s/p mastectomy, s/p small bowel resection/R colectomy/end ileostomy due to mets, last CTx 09/01/19, bilateral ureteral stents due to bilateral hydronephrosis due to compressive metastatic ca, presents with generalized weakness and upper body/torso spasm episode, lasting minutes, resolved spontaneously. She has history of spasm, on flexeril PRN. 1. Generalized weakness/Muscular Spasm Possible side-effects of chemotherapy and tumor burden/chronic disease. Hydration and electrolyte monitoring ongoing. Poor appetite - nutrition consulted for recommendations. No further spasm episodes. Flexeril PRN 2. Metastatic Breast Ca (bone - spine, ribs, femoral shafts, sacrum, peritoneal cavity), s/p mastectomy, last CTx 09/01/[address] Chest ?metastatic, no respiratory distress. Approaching neutropenia s/p CTx - no fever/chills. Blood/Urine Cx negative. Hem/Onc consulted - given Neupogen. 3. Macrocytic Anemia ? sec to CTx. Iron levels borderline. On Ferrous Sulfate. B12/Folate wnl. Monitor H/H. Transfuse PRN. 4. ALEKSANDER Hx of bilateral hydronephrosis s/p ureteral stents, now with ALEKSANDER. Will consult Nephrology and Urology (seen previously by Dr. Josue). IV hydration ongoing. DVT Px - Heparin SQ Visit type - Emergency Visit Emergency Visit: Yes ED Registration Date: 09/13/19 Care time: The patient presented to the Emergency Department on the above date and was hospitalized for further evaluation of their emergent condition. - New Patient This patient is new to me today: No - Critical Care Critical Care patient: No - Discharge Referral Referred to [facility] No
[2019-09-15] MEDS ORDERED: ACETAMINOPHEN 500 MG TABLET (FP) PO ONE (18:14)
[2019-09-15 18:33] LABS: ANISOCYTOSIS 2+; TARGET CELLS FEW
[2019-09-15 18:34] LABS: OVALOCYTE 1+; PLATELET ESTIMATE ADEQUATE
[2019-09-16] MEDS: HEPARIN NA (PORCINE) 5,000 UNITS/ML 1ML VIAL SQ SCH ×3 (06:39→22:13)
[2019-09-16] MEDS: CYCLOBENZAPRINE HCL 10 MG TABLET (FP) PO SCH ×3 (06:39→22:12)
[2019-09-16] MEDS: SODIUM CHLORIDE 1,000 ML IV SCH (06:40)
[2019-09-16] MEDS: ONDANSETRON 4 MG TABLET PO SCH ×3 (06:40→22:12)
[2019-09-16 08:23] LABS: BILIRUBIN,TOTAL 0.6 mg/dL (0.2-1); BLOOD UREA NITROGEN 27.2 mg/dL (7-18); CREATININE 1.9 mg/dL (0.55-1.3); MAGNESIUM 1.6 mg/dL (1.8-2.4); TOT PROT 5.4 g/dl (6.4-8.2)
[2019-09-16 08:31] LABS: BASO % 1.3 % (0-2.0); EOS % 6.5 % (0-4.5); HEMATOCRIT 25.4 % (32.4-45.2); HEMOGLOBIN 8.6 GM/dL (10.7-15.3); LYMPH % 25.4 % (8-40); MCH 33.5 pg (25.7-33.7); MCHC 33.9 g/dl (32.0-36.0); MEAN CELL VOLUME 98.8 fl (80-96); MEAN PLT VOLUME 7.1 fl (7.5-11.1); MONO % 22.8 % (3.8-10.2); PLATELET COUNT 225 K/MM3 (134-434); RBC 2.57 M/mm3 (3.60-5.2); RDW 16.8 % (11.6-15.6); WHITE BLOOD COUNT 2.3 K/mm3 (4.0-10.0)
[2019-09-16] MEDS ORDERED: MAGNESIUM SULF 50% (8.12 MEQ/2 ML-1 GM VIAL) IVPB ONE (08:50)
[2019-09-16] MEDS ORDERED: PT OWN MED DRAWER 7, Y5N ONE ×2 (10:33→13:10)
--- NOTE | 2019-09-16 11:33 | CONSULT ---
Consultation: REQUESTING PROVIDER: Dr Hoskins CONSULT REQUEST: Rising Cr HISTORY OF PRESENT ILLNESS: 73 y/o F, pmh of Breast cancer w/ mets to the spine, peritoneal cavity, colon, spine currently off chem with Navelbine, s/p right mastectomy, s/p radiation, b/ l ureteral stents w/ b/l hydro (due to be changed in November) ,presents c/o of weakness of 1-2 weeks duration and abdominal cramping of 1 day duration- patient initially presented with a Cr of 1.4 ; renal US showed worsening B/L hydronephrosis today patients Cr is 1.9- patient states that she is having back pain and she feels that the lymphedema in her right arm is getting worse REVIEW OF SYSTEMS: CONSTITUTIONAL: Absent: fever, chills, diaphoresis, generalized weakness, malaise, loss of appetite, weight change HEENT: Absent: rhinorrhea, nasal congestion, throat pain, throat swelling, difficulty swallowing, mouth swelling, ear pain, eye pain, visual changes CARDIOVASCULAR: Absent: chest pain, syncope, palpitations, irregular heart rate, lightheadedness , peripheral edema RESPIRATORY: Absent: cough, shortness of breath, dyspnea with exertion, orthopnea, wheezing, stridor, hemoptysis GASTROINTESTINAL: Absent: abdominal pain, abdominal distension, nausea, vomiting, diarrhea, constipation, melena, hematochezia GENITOURINARY: Absent: dysuria, frequency, urgency, hesitancy, hematuria, flank pain, genital pain MUSCULOSKELETAL: Absent: myalgia, arthralgia, joint swelling, back pain, neck pain SKIN: Absent: rash, itching, pallor HEMATOLOGIC/IMMUNOLOGIC: Present: lymphadenopathy Absent: easy bleeding, easy bruising, frequent infections ENDOCRINE: Absent: unexplained weight gain, unexplained weight loss, heat intolerance, cold intolerance NEUROLOGIC: Absent: headache, focal weakness or paresthesias, dizziness, unsteady gait, seizure, mental status changes, bladder or bowel incontinence PSYCHIATRIC: Absent: anxiety, depression, suicidal or homicidal ideation, hallucinations. PHYSICAL EXAMINATION Vital Signs - 24 hr 09/15/19 09/15/19 09/15/19 14:00 18:00 18:57 Temperature 99.2 F 98 F Pulse Rate 92 H 89 Respiratory 18 18 Rate Blood Pressure 147/84 142/81 O2 Sat by Pulse 96 Oximetry (%) 01/09/16/19 09/16/19 21:16 02:00 06:00 Temperature 97.7 F 97.9 F Pulse Rate 98 H 80 Respiratory 16 16 16 Rate Blood Pressure 136/88 149/87 O2 Sat by Pulse 96 Oximetry (%) 09/16/19 08:08 Temperature 97.8 F Pulse Rate 84 Respiratory 18 Rate Blood Pressure 149/85 O2 Sat by Pulse Oximetry (%) GENERAL: Awake, alert, and fully oriented, in no acute distress. EYES: PEERLA: EOMI; no scleral icterus NECK: no JVD; no lymphadenoapthy LUNGS: CTA B/L; no rales, rhonchi or wheezing HEART: Regular rate and rhythm, normal S1 and S2 without murmur, rub or gallop. ABDOMEN: Soft,NT/ND +BS in all 4 quadrants MUSCULOSKELETAL: Normal range of motion at all joints. No bony deformities or tenderness. No CVA tenderness. UPPER EXTREMITIES: 2+ pulses, warm, well-perfused. RUE lymphedema- no erythema no tenderness LOWER EXTREMITIES: warm; well-perfused no clubbing/cyanosis or edema NEUROLOGICAL: Cranial nerves II-XII intact. Normal speech. Normal gait. PSYCHIATRIC: Cooperative. Good eye contact. Appropriate mood and affect. SKIN: Warm, dry, normal turgor, no rashes or lesions noted. Laboratory Results - last 24 hr 09/15/19 09/15/19 09/15/19 11:39 13:50 13:50 WBC 2.2 L RBC 2.73 L Hgb 9.1 L Hct 27.2 L MCV 99.5 H MCH 33.5 MCHC 33.6 RDW 17.0 H Plt Count 232 MPV 7.1 L Absolute Neuts (auto) 1.2 L Neutrophils % 53.7 Neutrophils % (Manual) 60.0 Band Neutrophils % 2.0 Lymphocytes % 21.2 D Lymphocytes % (Manual) 22.0 D Monocytes % 20.6 H Monocytes % (Manual) 9 Eosinophils % 3.3 Eosinophils % (Manual) 1.0 Basophils % 1.2 Basophils % (Manual) 1.0 D Nucleated RBC % 0 Platelet Estimate Adequate Anisocytosis 2+ Target Cells Few Ovalocytes 1+ Sodium 138 Potassium 4.1 Chloride 102 Carbon Dioxide 28 Anion Gap 8 BUN 25.8 H Creatinine 1.8 H Est GFR (CKD-EPI)AfAm 31.80 Est GFR (CKD-EPI)NonAf 27.44 POC Glucometer 142 Random Glucose 120 H Calcium 9.1 Magnesium Ferritin Total Bilirubin AST ALT Alkaline Phosphatase Total Protein Albumin TSH 09/15/19 09/15/19 09/16/19 16:55 22:57 07:00 WBC RBC Hgb Hct MCV MCH MCHC RDW Plt Count MPV Absolute Neuts (auto) Neutrophils % Neutrophils % (Manual) Band Neutrophils % Lymphocytes % Lymphocytes % (Manual) Monocytes % Monocytes % (Manual) Eosinophils % Eosinophils % (Manual) Basophils % Basophils % (Manual) Nucleated RBC % Platelet Estimate Anisocytosis Target Cells Ovalocytes Sodium 140 Potassium 4.0 Chloride 105 Carbon Dioxide 30 Anion Gap 5 L BUN 27.2 H Creatinine 1.9 H Est GFR (CKD-EPI)AfAm 29.79 Est GFR (CKD-EPI)NonAf 25.70 POC Glucometer 98 108 Random Glucose 87 Calcium 9.0 Magnesium 1.6 L Ferritin 363.3 Total Bilirubin 0.6 AST 44 H ALT 16 Alkaline Phosphatase 107 Total Protein 5.4 L Albumin 3.0 L TSH 3.02 09/16/19 07:00 WBC 2.3 L RBC 2.57 L Hgb 8.6 L Hct 25.4 L MCV 98.8 H MCH 33.5 MCHC 33.9 RDW 16.8 H Plt Count 225 MPV 7.1 L Absolute Neuts (auto) 1.0 L Neutrophils % 44.0 Neutrophils % (Manual) Band Neutrophils % Lymphocytes % 25.4 Lymphocytes % (Manual) Monocytes % 22.8 H Monocytes % (Manual) Eosinophils % 6.5 H D Eosinophils % (Manual) Basophils % 1.3 Basophils % (Manual) Nucleated RBC % 0 Platelet Estimate Anisocytosis Target Cells Ovalocytes Sodium Potassium Chloride Carbon Dioxide Anion Gap BUN Creatinine Est GFR (CKD-EPI)AfAm Est GFR (CKD-EPI)NonAf POC Glucometer Random Glucose Calcium Magnesium Ferritin Total Bilirubin AST ALT Alkaline Phosphatase Total Protein Albumin TSH Active Medications Generic Name Dose Route Start Last Admin Trade Name Freq PRN Reason Stop Dose Admin Cyclobenzaprine HCl 10 mg 09/13/19 22:00 09/16/19 06:39 Flexeril - PO 10 mg TID TRICIA Administration Heparin Sodium (Porcine) 5,000 unit 09/13/19 20:30 09/16/19 06:39 Heparin - SQ 5,000 unit TID TRICIA Administration Sodium Chloride 1,000 mls @ 75 mls/hr 09/15/19 16:11 09/16/19 06:40 Normal Saline - IV 75 mls/hr ASDIR TRICIA Administration Ondansetron HCl 4 mg 09/13/19 22:00 09/16/19 06:40 Zofran - PO 4 mg TID TRICIA Administration Tbo-Filgrastim 480 mcg 09/16/19 10:00 Granix - SQ DAILY [facility] ASSESSMENT/PLAN: 73 y/o F, pmh of Breast cancer w/ mets to the spine, peritoneal cavity, colon, spine currently off chem with Navelbine, s/p right mastectomy, s/p radiation, b/ l ureteral stents w/ b/l hydro (due to be changed in November) ,presents c/o of weakness of 1-2 weeks duration and abdominal cramping of 1 day duration found to have rising Cr #B/L Hydronephrosis #Breast Ca w/ Mets B/L worsening hydro uro eval- stents to be changed dc fluids monitor BMP avoid NSAIDS; nephrotoxic drugs onc eval Dispo: We will continue to follow the patient. Thank you for this consultative opportunity. Problem List - Problems (1) Hydronephrosis Code(s): N13.30 - UNSPECIFIED HYDRONEPHROSIS (2) Lymphedema Code(s): I89.0 - LYMPHEDEMA, NOT ELSEWHERE CLASSIFIED Visit type - Emergency Visit Emergency Visit: Yes ED Registration Date: 09/13/19 Care time: The patient presented to the Emergency Department on the above date and was hospitalized for further evaluation of their emergent condition. - New Patient This patient is new to me today: Yes Date on this admission: 09/16/19 - Critical Care Critical Care patient: No ATTENDING PHYSICIAN STATEMENT I saw and evaluated the patient. I reviewed the resident's note and discussed the case with the resident. I agree with the resident's findings and plan as documented. SUBJECTIVE: OBJECTIVE: ASSESSMENT AND PLAN:
--- NOTE | 2019-09-16 12:03 | PN ---
Teaching Attending Note Name of Resident: Toñito Quintana ATTENDING PHYSICIAN STATEMENT I saw and evaluated the patient. I reviewed the resident's note and discussed the case with the resident. I agree with the resident's findings and plan as documented. Seen and examined; please see resident note for further historical information. I personally verified all limon historical information and exam findings. Personally interpreted all imaging and diagnostics and reviewed appropriate consults. I reviewed all labs and vital signs as per resident note and EMR as documented. I agree with the above assessment and plan unless supplemented by myself in the following. She is doing well this morning with no complaints. She states that she is making urine. Awaiting nephrology and urology input. 10 item review of systems completed and is negative aside from as discussed in the subjective data in my own/the resident documentation. VS, labs, imaging reviewed NAD, AAO, resting comfortably in bed. RRR s1/2 no mgr Normal muscle tone, moves all 5 extremities with normal apparent strength Neck is supple, trachea midline, no errol LN Lungs CTAB with sym expansion NT ND +BS no errol organomegaly CN2-12 wnl; no FND NC AT EOMI PERRLA Normal mood, appropriate behavior, euthymic affect No skin breakdown or rashes noted ASSESSMENT AND PLAN: Patient with history of metastatic breast cancer, bilateral ureteral stents, presents with weakness and muscle spasm resolved. Awaiting nephrology and urology evaluation. She is stable todayAnd continues to make urine with her creatinine at 1.9 today from 1.8 yesterday. Pending nephrology and urology evaluation as well as PT evaluation. Her history of hydronephrosis necessitates a urology consultation Problems include: Generalized weakness Muscle spasm Metastatic breast cancer ALEKSANDER with history of hydronephrosis, likely underlying medical CKD, urology and nephrology pending. History of hydronephrosis We will follow-up consultations and renal function, if she is improved can likely be discharged home versus rehab in the next 24 to 48 hours
[2019-09-16] MEDS: TBO-FILGRASTIM 480 MCG/0.8 ML DISP.SYRIN SQ SCH (12:07)
[2019-09-16 12:46] LABS: ANISOCYTOSIS 1+; MACROCYTOSIS 0; OVALOCYTE 1+; PLATELET ESTIMATE NORMAL
[2019-09-16] MEDS ORDERED: ACETAMINOPHEN 1000 MG/100 ML VIAL (NON FORMULARY) IVPB ONE (13:03)
--- NOTE | 2019-09-16 13:34 | PN ---
Physical Exam: SUBJECTIVE: Patient seen and examined OBJECTIVE: Vital Signs Period Temp Pulse Resp BP Sys/Avila Pulse Ox Last 24 Hr 97.7 F-99.2 F 80-98 16-18 136-149/81-88 94-96 GENERAL: The patient is awake, alert, and fully oriented, in no acute distress. HEAD: Normal with no signs of trauma. EYES: PERRL, extraocular movements intact, sclera anicteric, conjunctiva clear. No ptosis. ENT: Ears normal, nares patent, oropharynx clear without exudates, moist mucous membranes. NECK: Trachea midline, full range of motion, supple. LUNGS: Breath sounds equal, clear to auscultation bilaterally, no wheezes, no crackles, no accessory muscle use. HEART: Regular rate and rhythm, S1, S2 without murmur, rub or gallop. ABDOMEN: Soft, nontender, nondistended, normoactive bowel sounds, no guarding, no rebound, no hepatosplenomegaly, no masses. EXTREMITIES: 2+ pulses, warm, well-perfused, no edema. NEUROLOGICAL: Cranial nerves II through XII grossly intact. Normal speech, gait not observed. PSYCH: Normal mood, normal affect. SKIN: Warm, dry, normal turgor, no rashes or lesions noted Laboratory Results - last 24 hr CBC,CMP WBC 2.3 K/mm3 (4.0-10.0) L 09/16/19 07:00 RBC 2.57 M/mm3 (3.60-5.2) L 09/16/19 07:00 Hgb 8.6 GM/dL (10.7-15.3) L 09/16/19 07:00 Hct 25.4 % (32.4-45.2) L 09/16/19 07:00 MCV 98.8 fl (80-96) H 09/16/19 07:00 MCH 33.5 pg (25.7-33.7) 09/16/19 07:00 MCHC 33.9 g/dl (32.0-36.0) 09/16/19 07:00 RDW 16.8 % (11.6-15.6) H 09/16/19 07:00 Plt Count 225 K/MM3 (134-434) 09/16/19 07:00 MPV 7.1 fl (7.5-11.1) L 09/16/19 07:00 Absolute Neuts (auto) 1.0 K/mm3 (1.5-8.0) L 09/16/19 07:00 Neutrophils % 44.0 % (42.8-82.8) 09/16/19 07:00 Neutrophils % (Manual) 54.3 % (42.8-82.8) 09/16/19 07:00 Band Neutrophils % 0.0 % 09/16/19 07:00 Lymphocytes % 25.4 % (8-40) 09/16/19 07:00 Lymphocytes % (Manual) 22.9 % (8-40) 09/16/19 07:00 Monocytes % 22.8 % (3.8-10.2) H 09/16/19 07:00 Monocytes % (Manual) 13 % (3.8-10.2) H 09/16/19 07:00 Eosinophils % 6.5 % (0-4.5) H D 09/16/19 07:00 Eosinophils % (Manual) 6.7 % (0-4.5) H D 09/16/19 07:00 Basophils % 1.3 % (0-2.0) 09/16/19 07:00 Basophils % (Manual) 0.0 % (0-2.0) 09/16/19 07:00 Myelocytes % (Man) 0 % (0-2) 09/16/19 07:00 Promyelocytes % (Man) 0 % (0-2) 09/16/19 07:00 Blast Cells % (Manual) 0 % (0-0) 09/16/19 07:00 Nucleated RBC % 0 % (0-0) 09/16/19 07:00 Metamyelocytes 0 % (0-2) 09/16/19 07:00 Hypochromia 0 09/16/19 07:00 Platelet Estimate Normal 09/16/19 07:00 Polychromasia 0 09/16/19 07:00 Poikilocytosis 0 09/16/19 07:00 Anisocytosis 1+ 09/16/19 07:00 Microcytosis 0 09/16/19 07:00 Macrocytosis 0 09/16/19 07:00 Target Cells Few 09/15/19 13:50 Ovalocytes 1+ 09/16/19 07:00 Acanthocytes (Spur) 1+ 09/14/19 07:00 Sodium 140 mmol/L (136-145) 09/16/19 07:00 Potassium 4.0 mmol/L (3.5-5.1) 09/16/19 07:00 Chloride 105 mmol/L (98-107) 09/16/19 07:00 Carbon Dioxide 30 mmol/L (21-32) 09/16/19 07:00 Anion Gap 5 MMOL/L (8-16) L 09/16/19 07:00 BUN 27.2 mg/dL (7-18) H 09/16/19 07:00 Creatinine 1.9 mg/dL (0.55-1.3) H 09/16/19 07:00 Est GFR (CKD-EPI)AfAm 29.79 09/16/19 07:00 Est GFR (CKD-EPI)NonAf 25.70 09/16/19 07:00 POC Glucometer 116 UNITS (80-120) 09/16/19 12:06 Random Glucose 87 mg/dL (74-106) 09/16/19 07:00 Lactic Acid 1.0 mmol/L (0.4-2.0) 09/13/19 18:33 Calcium 9.0 mg/dL (8.5-10.1) 09/16/19 07:00 Phosphorus 4.1 mg/dL (2.5-4.9) 09/14/19 07:00 Magnesium 1.6 mg/dL (1.8-2.4) L 09/16/19 07:00 Iron 44 ug/dL (50-175) L 09/14/19 07:00 TIBC 248 ug/dL (250-450) L 09/14/19 07:00 Iron Saturation 17 % (17.5-39) L 09/14/19 07:00 Unsaturated IBC 204 ug/dL (200-275) 09/14/19 07:00 Ferritin 363.3 ng/ml (8-388) 09/16/19 07:00 Total Bilirubin 0.6 mg/dL (0.2-1) 09/16/19 07:00 AST 44 U/L (15-37) H 09/16/19 07:00 ALT 16 U/L (13-61) 09/16/19 07:00 Alkaline Phosphatase 107 U/L (45-117) 09/16/19 07:00 Creatine Kinase 73 U/L (26-192) 09/13/19 14:10 Troponin I Cancelled 09/13/19 14:40 Total Protein 5.4 g/dl (6.4-8.2) L 09/16/19 07:00 Albumin 3.0 g/dl (3.4-5.0) L 09/16/19 07:00 Vitamin B12 591 pg/ml (193-986) 09/14/19 07:00 Serum Folate 29 ng/mL (3.1-17.5) H 09/14/19 07:00 TSH 3.02 uIU/ml (0.358-3.74) 09/16/19 07:00 Active Medications Current Medications Acetaminophen (Tylenol -) 650 mg PO Q6H PRN PRN Reason: Fever Or Pain Cyclobenzaprine HCl (Flexeril -) 10 mg PO TID [facility] Last Admin: 09/16/19 13:26 Dose: 10 mg Heparin Sodium (Porcine) (Heparin -) 5,000 unit SQ TID [facility] Last Admin: 09/16/19 13:27 Dose: 5,000 unit Ondansetron HCl (Zofran -) 4 mg PO TID [facility] Last Admin: 09/16/19 13:26 Dose: 4 mg Tbo-Filgrastim (Granix -) 480 mcg SQ DAILY [facility] Last Admin: 09/16/19 12:07 Dose: 480 mcg Home Medications Medication Instructions Recorded Calcium Citrate/Magnesium/D3 2 tab PO DAILY 05/08/17 [Calcium Citrate Chewable Wafer] Cholecalciferol (Vitamin D3) 3,000 unit PO DAILY 05/08/17 [Vitamin D3] Vitamin B Complex 1 each PO DAILY 05/08/17 Ferrous Sulfate [Feosol] 325 mg PO DAILY 01/15/18 Magnesium Citrate 800 mg PO DAILY 01/15/18 Cyclobenzaprine HCl 10 mg PO Q8H 09/13/19 Ondansetron HCl [Zofran] 4 mg PO Q8H 09/13/19 Tramadol HCl 50 mg Q6H 09/13/19 Microbiology 09/13/19 14:45 Blood - Peripheral Venous Blood Culture - Preliminary NO GROWTH OBTAINED AFTER 48 HOURS, INCUBATION TO CONTINUE FOR 3 DAYS. 09/13/19 14:45 Blood - Peripheral Venous Blood Culture - Preliminary NO GROWTH OBTAINED AFTER 48 HOURS, INCUBATION TO CONTINUE FOR 3 DAYS. 09/13/19 14:50 Urine - Urine Clean Catch Urine Culture - Final NO GROWTH OBTAINED ASSESSMENT/PLAN: 73 y/o F, pmh of Breast cancer stage 3A w/ mets to the spine, peritoneal cavity , colon, spine, s/p right mastectomy, s/p radiation, b/l ureteral stents w/ b/l hydro, mild b/l pleural effusion, presents c/o of weakness of 1-2 weeks duration and abdominal cramping of 1 day duration #Abdominal cramping/Generalized spasm likely 2/2 to dehydration 2/2 Failure to thrive vs Navelbine adverse effect CT a/p (09/10)- increased right and developing left pleural effusion, no mets to chest, small amount of ascites, severe b/l hydronephrosis w/ ureteral stents, slight increase in size of large right pelvic cystic mass. No acute path in the abdomen or pelvis. Increase pt's quality of life provide nutritional support with appetite stimulate, ensure Social work for referral to "Cancer survivor support group" upon discharge Zofran for nausea Flexeril IV tylenol Tylenol 650 PRN Mag repleted #Right foream pain likely 2/2 to lymph edema Duplex ordered IV tylenol for pain #Leukopenia 2/2 to chemo no signs of infxn trends labs #Hematuria likely 2/2 to metastasis- now resolved #ALEKSANDER b/l hydronephrosis s/p ureteral stents Nephro consult pending Uro- Dr. Josue pending #Anemia likely 2/2 to decreased appetite Nephro consulted Transfuse if necessary #Breast cancer w/ mets (bone - spine, ribs, femoral shafts, sacrum, peritoneal cavity), s/p mastectomy Currently off Navelbine Edward consulted- appreciate consult Pt started on Granix #DVTppx hep sq TID FEN PO diet, ensure monitor lytes Regular diet Dispo: f/u w/ nephro and uro Visit type - Emergency Visit Emergency Visit: Yes ED Registration Date: 09/13/19 Care time: The patient presented to the Emergency Department on the above date and was hospitalized for further evaluation of their emergent condition. - New Patient This patient is new to me today: Yes Date on this admission: 09/17/19 - Critical Care Critical Care patient: No - Discharge Referral Referred to [facility] No ATTENDING PHYSICIAN STATEMENT I saw and evaluated the patient. I reviewed the resident's note and discussed the case with the resident. I agree with the resident's findings and plan as documented. SUBJECTIVE: OBJECTIVE: ASSESSMENT AND PLAN:
--- NOTE | 2019-09-16 15:28 | PN ---
Teaching Attending Note Name of Resident: Nancy Henry (Nephrology) ATTENDING PHYSICIAN STATEMENT I saw and evaluated the patient. I reviewed the resident's note and discussed the case with the resident. I agree with the resident's findings and plan as documented. Renal Pt is 73 year old female with pmhx of metastatic breast cancer, ckd, and bilateral hydro with stents who presents with weakness. 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 She says that she is due for her stents to be changed. She denies shortness of breath. pmhx breast cancer ckd obstructive uropathy nkda social hx denies family hx non contrib Laboratory Tests 09/01/19 09/08/19 09/13/19 12:15 12:11 14:10 WBC Hgb Sodium Potassium Creatinine 1.5 H 1.3 1.5 H 09/14/19 09/15/19 09/15/19 07:00 13:50 13:50 WBC Hgb 9.1 L Sodium Potassium Creatinine 1.4 H 1.8 H 09/16/19 09/16/19 07:00 07:00 WBC 2.3 L Hgb 8.6 L Sodium 140 Potassium 4.0 Creatinine 1.9 H Last Vital Signs Temp Pulse Resp BP Pulse Ox 98.1 F 108 H 20 141/87 94 L 09/16/19 13:43 09/16/19 13:43 09/16/19 13:43 09/16/19 13:43 09/16/19 10:00 Current Medications Generic Name Dose Route Start Last Admin Trade Name Freq PRN Reason Stop Dose Admin Acetaminophen 650 mg 09/16/19 13:02 Tylenol - PO Q6H PRN Fever Or Pain Cyclobenzaprine HCl 10 mg 09/13/19 22:00 09/16/19 13:26 Flexeril - PO 10 mg TID TRICIA Administration Heparin Sodium (Porcine) 5,000 unit 09/13/19 20:30 09/16/19 13:27 Heparin - SQ 5,000 unit TID TRICIA Administration Ondansetron HCl 4 mg 09/13/19 22:00 09/16/19 13:26 Zofran - PO 4 mg TID TRICIA Administration Tbo-Filgrastim 480 mcg 09/16/19 10:00 09/16/19 12:07 Granix - SQ 480 mcg DAILY TRICIA Administration ultrasound - bilateral hydro that is worse cardio s1s2 pulm clear GI soft ext right arm edema Impression 1. CKD 2. leukopenia 3. obstructive uropathy with bilateral hydro 4. breast cancer with mets 5. HTN 6. hyperlipidemia 7. anemia 8. ALEKSANDER Plan - repeat labs in am - can stop fluids for now - urology eval to see if stents need to be changes as hyro is worse - will follow Dr Land
--- NOTE | 2019-09-16 19:26 | PN ---
Progress Note (short form) - Note Progress Note: Patient seen and examined Some left frontal headache and RUE weakness with lower back pain and LE weakness Last Vital Signs Temp Pulse Resp BP Pulse Ox 98.1 F 89 18 147/83 98 09/16/19 18:00 09/16/19 18:00 09/16/19 18:00 09/16/19 18:00 09/16/19 18:00 HEENT: PAT, EOM Intact Oropharynx: No thrush, No mucositis Breasts: right chest wall negative /telangiectasia Cor: RSR, No murmurs, No gallops Lungs: Clear to P&A Abd: Soft, Normal bowel sounds, No organomegalyileostomy Ext:No significant edema Skin: No rashes, Integument intact LE weakness L>R CBC, BMP 09/16/19 07:00 09/16/19 07:00 Current Medications Generic Name Dose Route Start Last Admin Trade Name Freq PRN Reason Stop Dose Admin Acetaminophen 650 mg 09/16/19 13:02 Tylenol - PO Q6H PRN Fever Or Pain Cyclobenzaprine HCl 10 mg 09/13/19 22:00 09/16/19 13:26 Flexeril - PO 10 mg TID TRICIA Administration Heparin Sodium (Porcine) 5,000 unit 09/13/19 20:30 09/16/19 13:27 Heparin - SQ 5,000 unit TID TRICIA Administration Ondansetron HCl 4 mg 09/13/19 22:00 09/16/19 13:26 Zofran - PO 4 mg TID TRICIA Administration Tbo-Filgrastim 480 mcg 09/16/19 10:00 09/16/19 12:07 Granix - SQ 480 mcg DAILY TRICIA Administration Impression: Metastatic breast ca RUE weakness/headache Hydronephrosis CKD Neutropenia Anemia Plan ; MRI of brain - follow up re stent change toradol
[2019-09-17] MEDS: HEPARIN NA (PORCINE) 5,000 UNITS/ML 1ML VIAL SQ SCH ×3 (06:21→21:48)
[2019-09-17] MEDS: CYCLOBENZAPRINE HCL 10 MG TABLET (FP) PO SCH ×3 (06:21→21:49)
[2019-09-17] MEDS: ONDANSETRON 4 MG TABLET PO SCH ×3 (06:22→22:32)
[2019-09-17 07:52] LABS: HEMATOCRIT 24.9 % (32.4-45.2); HEMOGLOBIN 8.6 GM/dL (10.7-15.3); MCH 33.8 pg (25.7-33.7); MCHC 34.3 g/dl (32.0-36.0); MEAN CELL VOLUME 98.5 fl (80-96); MEAN PLT VOLUME 7.1 fl (7.5-11.1); PLATELET COUNT 228 K/MM3 (134-434); RBC 2.53 M/mm3 (3.60-5.2); RDW 16.9 % (11.6-15.6); WHITE BLOOD COUNT 9.8 K/mm3 (4.0-10.0)
[2019-09-17 08:02] LABS: ALBUMIN 2.7 g/dl (3.4-5.0); BILIRUBIN,TOTAL 0.3 mg/dL (0.2-1); BLOOD UREA NITROGEN 29.7 mg/dL (7-18); CALCIUM 9.1 mg/dL (8.5-10.1); POTASSIUM 4.3 mmol/L (3.5-5.1); TOT PROT 5.4 g/dl (6.4-8.2)
[2019-09-17] MEDS ORDERED: traMADol HCL 50 MG TABLET PO SCH (08:15)
[2019-09-17] MEDS ORDERED: PT OWN MED DRAWER 7, Y5N ONE ×3 (09:33→21:39)
--- NOTE | 2019-09-17 11:07 | PN ---
Progress Note, Physician History of Present Illness: Pt seen and examined at bedside. She is awake and alert. She denies shortness of breath. - Current Medication List Current Medications: Active Medications Acetaminophen (Tylenol -) 650 mg PO Q6H PRN PRN Reason: Fever Or Pain Cyclobenzaprine HCl (Flexeril -) 10 mg PO TID [facility] Last Admin: 09/17/19 06:21 Dose: 10 mg Heparin Sodium (Porcine) (Heparin -) 5,000 unit SQ TID [facility] Last Admin: 09/17/19 06:21 Dose: 5,000 unit Ondansetron HCl (Zofran -) 4 mg PO TID [facility] Last Admin: 09/17/19 06:22 Dose: 4 mg Tbo-Filgrastim (Granix -) 480 mcg SQ DAILY [facility] Last Admin: 09/16/19 12:07 Dose: 480 mcg Tramadol HCl (Ultram -) 50 mg PO Q6H PRN PRN Reason: PAIN LEVEL 4 - 6 - Objective Vital Signs: Vital Signs Temperature 98.6 F 09/17/19 09:43 Pulse Rate 100 H 09/17/19 09:43 Respiratory Rate 09/17/19 09:43 Blood Pressure 147/66 09/17/19 09:43 O2 Sat by Pulse Oximetry (%) 98 09/17/19 02:00 Constitutional: Yes: Calm Eyes: Yes: Conjunctiva Clear Neck: Yes: Supple Cardiovascular: Yes: S1, S2 Respiratory: Yes: CTA Bilaterally Gastrointestinal: Yes: Soft Genitourinary: Yes: WNL Musculoskeletal: Yes: WNL Edema: Yes Edema: RUE: 1+ Neurological: Yes: Oriented Psychiatric: Yes: Oriented Labs: CBC, BMP 09/17/19 06:45 09/17/19 06:45 INR, PTT INR 1.01 (0.83-1.09) 09/13/19 14:40 Assessment/Plan Current Medications Generic Name Dose Route Start Last Admin Trade Name Freq PRN Reason Stop Dose Admin Acetaminophen 650 mg 09/16/19 13:02 Tylenol - PO Q6H PRN Fever Or Pain Cyclobenzaprine HCl 10 mg 09/13/19 22:00 09/17/19 06:21 Flexeril - PO 10 mg TID [facility] Administration Heparin Sodium (Porcine) 5,000 unit 09/13/19 20:30 09/17/19 06:21 Heparin - SQ 5,000 unit TID TRICIA Administration Ondansetron HCl 4 mg 09/13/19 22:00 09/17/19 06:22 Zofran - PO 4 mg TID TRICIA Administration Tbo-Filgrastim 480 mcg 09/16/19 10:00 09/16/19 12:07 Granix - SQ 480 mcg DAILY TRICIA Administration Tramadol HCl 50 mg 09/17/19 09:41 Ultram - PO Q6H PRN PAIN LEVEL 4 - 6 Impression 1. CKD 2. leukopenia 3. obstructive uropathy with bilateral hydro 4. breast cancer with mets 5. HTN 6. hyperlipidemia 7. anemia 8. 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
[2019-09-17] MEDS: traMADol HCL 50 MG TABLET PO PRN ×2 (11:46→18:06)
--- NOTE | 2019-09-17 13:56 | CON.GU ---
Consult Consult Specialty:: Referred by:: medicine Reason for Consultation:: hydronephrosis - History of Present Illness Chief Complaint: hydronephrosis History of Present Illness: 73 year old woman with chronically indwelling stents for bilateral obstruction secondary to cancer. She has metal stents that are changed every December. Last change was December 2018. She presents with the hospital and CT shows her usual hydronephrosis with stents in place. 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: Yes: Peripheral Neuropathy Cardio/Vascular: Yes: HTN Renal/: Yes: Renal Failure, Renal Inusuff, UTI (hydronephrosis), Other ( obstructive uropathy) - Alcohol/Substance Use Hx Alcohol Use: No - Smoking History Smoking history: Never smoked Have you smoked in the past 12 months: No Aproximately how many cigarettes per day: 0 Home Medications - Allergies Allergies/Adverse Reactions: Allergies Allergy/AdvReac Type Severity Reaction Status Date / Time No Known Drug Allergies Allergy Verified 09/13/19 12:58 - Home Medications Home Medications: Ambulatory Orders Calcium Citrate/Magnesium/D3 [Calcium Citrate Chewable Wafer] 2 tab PO DAILY 08/12 Cholecalciferol (Vitamin D3) [Vitamin D3] 3,000 unit PO DAILY 05/08/17 Vitamin B Complex 1 each PO DAILY 05/08/17 Ferrous Sulfate [Feosol] 325 mg PO DAILY 01/15/18 Magnesium Citrate 800 mg PO DAILY 01/15/18 Cyclobenzaprine HCl 10 mg PO Q8H 09/13/19 Ondansetron HCl [Zofran] 4 mg PO Q8H 09/13/19 Tramadol HCl 50 mg Q6H 09/13/19 Physical Exam- Vital Signs: Vital Signs Temperature 98.6 F 09/17/19 09:43 Pulse Rate 100 H 09/17/19 09:43 Respiratory Rate 20 09/17/19 09:43 Blood Pressure 147/66 09/17/19 09:43 O2 Sat by Pulse Oximetry (%) 98 09/17/19 10:00 Labs: CBC, BMP 09/17/19 06:45 09/17/19 06:45 Problem List - Problems (1) Hydronephrosis Assessment/Plan: pt has her usual hydronephrosis on CT with stents in place. Creatinine is elevated. If it does not resolve with hydration I would order a renal scan to see if there is actual obstruction. Code(s): N13.30 - UNSPECIFIED HYDRONEPHROSIS
[2019-09-17] MEDS: GABAPENTIN 100 MG CAPSULE PO SCH ×2 (14:17→21:49)
[2019-09-17] MEDS ORDERED: SODIUM CHLORIDE 0.9% 500 ML INFUS.BAG IV ONE (14:55)
--- NOTE | 2019-09-17 15:02 | PN ---
Physical Exam: SUBJECTIVE: Patient seen and examined OBJECTIVE: Vital Signs Period Temp Pulse Resp BP Sys/Avila Pulse Ox Last 24 Hr 82 F-98.8 F 81-102 16-20 137-154/66-87 98-98 GENERAL: AOx3, NAD HEAD: Normal with no signs of trauma. EYES: PERRL, extraocular movements intact, sclera anicteric, conjunctiva clear. No ptosis. ENT: oropharynx clear without exudates, moist mucous membranes. LUNGS: Breath sounds equal, clear to auscultation bilaterally, no wheezes, no crackles HEART: Regular rate and rhythm, S1, S2 without murmur, rub or gallop. ABDOMEN: Soft, nontender, nondistended, normoactive bowel sounds, no guarding, EXTREMITIES: RUE lymph edema, LUE normal, pulses intact b/l NEUROLOGICAL: Cranial nerves II through XII grossly intact. Normal speech, gait not observed. Laboratory Results - last 24 hr 09/17/19 09/17/19 06:45 06:45 WBC 9.8 RBC 2.53 L Hgb 8.6 L Hct 24.9 L MCV 98.5 H MCH 33.8 H MCHC 34.3 RDW 16.9 H Plt Count 228 MPV 7.1 L Sodium 138 Potassium 4.3 Chloride 103 Carbon Dioxide 27 Anion Gap 8 BUN 29.7 H Creatinine 2.0 H Est GFR (CKD-EPI)AfAm 28.00 Est GFR (CKD-EPI)NonAf 24.16 Random Glucose 102 Calcium 9.1 Total Bilirubin 0.3 AST 43 H ALT 15 Alkaline Phosphatase 125 H Total Protein 5.4 L Albumin 2.7 L Active Medications Current Medications Acetaminophen (Tylenol -) 650 mg PO Q6H PRN PRN Reason: Fever Or Pain Cyclobenzaprine HCl (Flexeril -) 10 mg PO TID [facility] Last Admin: 09/17/19 14:16 Dose: 10 mg Gabapentin (Neurontin -) 100 mg PO BID [facility] Last Admin: 09/17/19 14:17 Dose: 100 mg Heparin Sodium (Porcine) (Heparin -) 5,000 unit SQ TID [facility] Last Admin: 09/17/19 14:17 Dose: 5,000 unit Ondansetron HCl (Zofran -) 4 mg PO TID [facility] Last Admin: 09/17/19 14:17 Dose: 4 mg Tbo-Filgrastim (Granix -) 480 mcg SQ DAILY TRICIA Last Admin: 09/16/19 12:07 Dose: 480 mcg Tramadol HCl (Ultram -) 50 mg PO Q6H PRN PRN Reason: PAIN LEVEL 4 - 6 Last Admin: 09/17/19 11:46 Dose: 50 mg Home Medications Medication Instructions Recorded Calcium Citrate/Magnesium/D3 2 tab PO DAILY 05/08/17 [Calcium Citrate Chewable Wafer] Cholecalciferol (Vitamin D3) 3,000 unit PO DAILY 05/08/17 [Vitamin D3] Vitamin B Complex 1 each PO DAILY 05/08/17 Ferrous Sulfate [Feosol] 325 mg PO DAILY 01/15/18 Magnesium Citrate 800 mg PO DAILY 01/15/18 Cyclobenzaprine HCl 10 mg PO Q8H 09/13/19 Ondansetron HCl [Zofran] 4 mg PO Q8H 09/13/19 Tramadol HCl 50 mg Q6H 09/13/19 Microbiology 09/13/19 14:45 Blood - Peripheral Venous Blood Culture - Preliminary NO GROWTH OBTAINED AFTER 72 HOURS, INCUBATION TO CONTINUE FOR 2 DAYS. 09/13/19 14:45 Blood - Peripheral Venous Blood Culture - Preliminary NO GROWTH OBTAINED AFTER 72 HOURS, INCUBATION TO CONTINUE FOR 2 DAYS. 09/13/19 14:50 Urine - Urine Clean Catch Urine Culture - Final NO GROWTH OBTAINED ASSESSMENT/PLAN: 73 y/o F, pmh of Breast cancer stage 3A w/ mets to the spine, peritoneal cavity , colon, spine, s/p right mastectomy, s/p radiation, b/l ureteral stents w/ b/l hydro, mild b/l pleural effusion, presents c/o of weakness of 1-2 weeks duration and abdominal cramping of 1 day duration #Abdominal cramping/Generalized spasm likely 2/2 to dehydration 2/2 Failure to thrive vs Navelbine adverse effect Zofran for nausea Flexeril IV tylenol Tylenol 650 PRN Mag repleted MRI: no acute pathology, Left lateral mass of C1, base of C1- pathological bone marrow replacement Discussed with CM/SW- pt likely will not qualify for SNF, will go home with VNS F/u w/ Dr. Edward #Right forearm pain likely 2/2 to lymph edema Duplex neg IV tylenol for pain Gabapentin 100 BID Tramadol Q6H PRN #Leukopenia 2/2 to chemo #Hematuria likely 2/2 to metastasis- now resolved #ALEKSANDER b/l hydronephrosis s/p ureteral stents Dr. Josue -Urology recom- hydration to return Cre to normal, if Cre remains elevated, consider Renal scan again for obstruction NS bolus 500 given Monitor Cre #Anemia likely 2/2 to decreased appetite Nephro consulted Transfuse if necessary #Breast cancer w/ mets (bone - spine, ribs, femoral shafts, sacrum, peritoneal cavity), s/p mastectomy Currently off Navelbine Cheyanne consulted- appreciate consult Pt started on Granix #DVTppx hep sq TID FEN PO diet, ensure monitor lytes Regular diet Dispo: f/u Heme/onc, cont monitoring Cre Visit type - Emergency Visit Emergency Visit: Yes ED Registration Date: 09/17/19 Care time: The patient presented to the Emergency Department on the above date and was hospitalized for further evaluation of their emergent condition. - New Patient This patient is new to me today: Yes Date on this admission: 09/17/19 - Critical Care Critical Care patient: No - Discharge Referral Referred to [facility] Med P.C.: No ATTENDING PHYSICIAN STATEMENT I saw and evaluated the patient. I reviewed the resident's note and discussed the case with the resident. I agree with the resident's findings and plan as documented. SUBJECTIVE: OBJECTIVE: ASSESSMENT AND PLAN:
[2019-09-17] MEDS: TBO-FILGRASTIM 480 MCG/0.8 ML DISP.SYRIN SQ SCH (17:52)
--- NOTE | 2019-09-17 20:19 | PN ---
Progress Note (short form) - Note Progress Note: Patient seen and examined MRI brain - with C1 and C@ bone marrow abnormality - No brain mets. Still with weakness of RUE - doubt lymhedema is etiology. Review of prior bone scan did not reveal uptake in C spine, did reveal stable disease with left ribs, sternum, sacrum and femurs involved. patient with lower back pain Will get sacral and femur films. For renal scan per .
[2019-09-18] MEDS: HEPARIN NA (PORCINE) 5,000 UNITS/ML 1ML VIAL SQ SCH ×3 (05:32→22:26)
[2019-09-18] MEDS: ONDANSETRON 4 MG TABLET PO SCH ×3 (05:32→22:58)
[2019-09-18] MEDS: CYCLOBENZAPRINE HCL 10 MG TABLET (FP) PO SCH ×3 (05:32→22:26)
[2019-09-18] MEDS ORDERED: SODIUM CHLORIDE 1,000 ML IV SCH (07:45)
[2019-09-18] MEDS: traMADol HCL 50 MG TABLET PO PRN (09:11)
[2019-09-18] MEDS: GABAPENTIN 100 MG CAPSULE PO SCH (09:12)
[2019-09-18 09:43] LABS: BASO % 0.4 % (0-2.0); EOS % 1.7 % (0-4.5); HEMOGLOBIN 8.6 GM/dL (10.7-15.3); LYMPH % 5.3 % (8-40); MCH 32.9 pg (25.7-33.7); MCHC 32.9 g/dl (32.0-36.0); MEAN PLT VOLUME 7.2 fl (7.5-11.1); MONO % 6.1 % (3.8-10.2); NEUT % 86.5 % (42.8-82.8); PLATELET COUNT 239 K/MM3 (134-434); RDW 17.3 % (11.6-15.6); WHITE BLOOD COUNT 14.2 K/mm3 (4.0-10.0)
[2019-09-18 10:09] LABS: ALBUMIN 2.9 g/dl (3.4-5.0); BILIRUBIN,TOTAL 0.5 mg/dL (0.2-1); BLOOD UREA NITROGEN 30.7 mg/dL (7-18); CALCIUM 9.5 mg/dL (8.5-10.1); MAGNESIUM 1.9 mg/dL (1.8-2.4); PHOSPHOROUS 4.6 mg/dL (2.5-4.9); POTASSIUM 4.4 mmol/L (3.5-5.1); TOT PROT 5.9 g/dl (6.4-8.2)
[2019-09-18] MEDS: PREGABALIN 75 MG CAPSULE PO SCH (11:21)
[2019-09-18] MEDS: TBO-FILGRASTIM 480 MCG/0.8 ML DISP.SYRIN SQ SCH (11:21)
--- NOTE | 2019-09-18 11:22 | PN ---
Physical Exam: SUBJECTIVE: Patient seen and examined awake alert , no complain , feeling better denies any fever, chills, N/V/D/C right arm pain is better controlled had BM , eating well. OBJECTIVE: Vital Signs Period Temp Pulse Resp BP Sys/Avila Pulse Ox Last 24 Hr 97.5 F-99.0 F 83-104 18-20 122-159/65-88 94-95 General: in NAD Head: NC/AT HEENT: PAT, EOM Intact Oropharynx: No thrush, No mucositis Neck: Supple, no lymphadenopathy Nodes: Without adenopathy Breasts:right chest wall - negative - no recurrence- telangiectasia; left breast - no masses Cor: RSR, RUSB murmur , No gallops Lungs: CTA B/L Abd: Soft, Normal bowel sounds, No organomegaly, functioning ileostomy , right surgical scar , Ext:No significant edema Skin: No rashes, Integument intact no LE edema , +2 DP pulse right upper ext edematous with limited ROM due to pain , she can move her hand but need help raising her R arm. Laboratory Results - last 24 hr 09/18/19 09/18/19 08:05 08:05 WBC 14.2 H RBC 2.60 L Hgb 8.6 L Hct 26.0 L MCV 100.0 H MCH 32.9 MCHC 32.9 RDW 17.3 H Plt Count 239 MPV 7.2 L Absolute Neuts (auto) 12.3 H Neutrophils % 86.5 H D Lymphocytes % 5.3 L D Monocytes % 6.1 Eosinophils % 1.7 Basophils % 0.4 Nucleated RBC % 0 Sodium 136 Potassium 4.4 Chloride 100 Carbon Dioxide 29 Anion Gap 7 L BUN 30.7 H Creatinine 2.0 H Est GFR (CKD-EPI)AfAm 28.00 Est GFR (CKD-EPI)NonAf 24.16 Random Glucose 69 L Calcium 9.5 Phosphorus 4.6 Magnesium 1.9 Total Bilirubin 0.5 AST 44 H ALT 15 Alkaline Phosphatase 127 H Total Protein 5.9 L Albumin 2.9 L Active Medications Generic Name Dose Route Start Last Admin Trade Name Freq PRN Reason Stop Dose Admin Acetaminophen 650 mg 09/16/19 13:02 Tylenol - PO Q6H PRN Fever Or Pain Cyclobenzaprine HCl 10 mg 09/13/19 22:00 09/18/19 05:32 Flexeril - PO 10 mg TID TRICIA Administration Heparin Sodium (Porcine) 5,000 unit 09/13/19 20:30 09/18/19 05:32 Heparin - SQ 5,000 unit TID TRICIA Administration Sodium Chloride 1,000 mls @ 75 mls/hr 09/18/19 11:11 Normal Saline - IV ASDIR TRICIA Ondansetron HCl 4 mg 09/13/19 22:00 09/18/19 05:32 Zofran - PO 4 mg TID TRICIA Administration Pregabalin 75 mg 09/18/19 11:15 09/18/19 11:21 Lyrica - PO 75 mg DAILY TRICIA Administration Tbo-Filgrastim 480 mcg 09/16/19 10:00 09/18/19 11:21 Granix - SQ 480 mcg DAILY TRICIA Administration Tramadol HCl 50 mg 09/17/19 09:41 09/18/19 09:11 Ultram - PO 50 mg Q6H PRN Administration PAIN LEVEL 4 - 6 CBC, BMP 09/18/19 08:05 09/18/19 08:05 MRI brain - with C1 and C@ bone marrow abnormality - No brain mets. ASSESSMENT/PLAN: 73 y/o F, pmh of Breast cancer stage 3A w/ mets to the spine, peritoneal cavity , colon, spine, s/p right mastectomy, s/p radiation, b/l ureteral stents w/ b/l hydro, mild b/l pleural effusion, presents c/o of weakness of 1-2 weeks duration and abdominal cramping of 1 day duration # CKD # leukopenia, improving dc granix # obstructive uropathy with bilateral hydro #breast cancer with mets # HTN # hyperlipidemia # anemia, normocytic normochromic likley due to chronic disease vs chemotherapy vs low oral intake # ALEKSANDER, monitor lab daily , renal scan to R.O obstruction , cont hydration Still with weakness of RUE - doubt lymhedema is etiology. Review of prior bone scan did not reveal uptake in C spine, did reveal stable disease with left ribs, sternum, sacrum and femurs involved. patient with lower back pain Will get sacral and femur films. For renal scan per . Visit type - Emergency Visit Emergency Visit: Yes ED Registration Date: 09/17/19 Care time: The patient presented to the Emergency Department on the above date and was hospitalized for further evaluation of their emergent condition. - New Patient This patient is new to me today: No - Critical Care Critical Care patient: No ATTENDING PHYSICIAN STATEMENT I saw and evaluated the patient. I reviewed the resident's note and discussed the case with the resident. I agree with the resident's findings and plan as documented. SUBJECTIVE: OBJECTIVE: ASSESSMENT AND PLAN:
[2019-09-18 12:50] LABS: EPI CELLS 1.4 /HPF (0-5/HPF); HYALINE CASTS 0 /lpf (0-8); PH,URINE 6.5 (5.0-8.0); URINE APPEARANCE CLEAR; URINE BACTERIA 25.8 /hpf (NEGATIVE); URINE BILIRUBIN NEGATIVE (NEGATIVE); URINE COLOR YELLOW; URINE GLUCOSE (UA) NEGATIVE (NEGATIVE); URINE KETONE NEGATIVE (NEGATIVE); URINE LEUK ESTERASE NEGATIVE (NEGATIVE); URINE NITRITE NEGATIVE (NEGATIVE); URINE PROTEIN NEGATIVE (NEGATIVE); URINE RBC 15 /hpf (0-4); URINE UROBILINOGEN 0.2 mg/dL (0.2-1.0); URINE WBC 2 /hpf (0-5)
--- NOTE | 2019-09-18 15:18 | PN ---
Physical Exam: SUBJECTIVE: Patient seen and examined. Pt is doing well. No overnight events or issues. Pt still c/o of right arm pain and back pain. Improved with pain meds. Afebrile other borjas. Denies f/c/n/v/d/sob, chest pain OBJECTIVE: Vital Signs Period Temp Pulse Resp BP Sys/Avila Pulse Ox Last 24 Hr 97.5 F-99.0 F 83-104 18-20 121-159/65-88 94-95 GENERAL: AOx3, NAD HEAD: Normal with no signs of trauma. EYES: PERRL, extraocular movements intact, sclera anicteric, conjunctiva clear. No ptosis. ENT: oropharynx clear without exudates, moist mucous membranes. LUNGS: Breath sounds equal, clear to auscultation bilaterally, no wheezes, no crackles HEART: Regular rate and rhythm, S1, S2 without murmur, rub or gallop. ABDOMEN: Soft, nontender, nondistended, normoactive bowel sounds, no guarding, EXTREMITIES: RUE lymph edema, LUE normal, pulses intact b/l NEUROLOGICAL: Cranial nerves II through XII grossly intact. Normal speech, gait not observed. Laboratory Results - last 24 hr CBC,CMP WBC 14.2 K/mm3 (4.0-10.0) H 09/18/19 08:05 RBC 2.60 M/mm3 (3.60-5.2) L 09/18/19 08:05 Hgb 8.6 GM/dL (10.7-15.3) L 09/18/19 08:05 Hct 26.0 % (32.4-45.2) L 09/18/19 08:05 MCV 100.0 fl (80-96) H 09/18/19 08:05 MCH 32.9 pg (25.7-33.7) 09/18/19 08:05 MCHC 32.9 g/dl (32.0-36.0) 09/18/19 08:05 RDW 17.3 % (11.6-15.6) H 09/18/19 08:05 Plt Count 239 K/MM3 (134-434) 09/18/19 08:05 MPV 7.2 fl (7.5-11.1) L 09/18/19 08:05 Absolute Neuts (auto) 12.3 K/mm3 (1.5-8.0) H 09/18/19 08:05 Neutrophils % 86.5 % (42.8-82.8) H D 09/18/19 08:05 Neutrophils % (Manual) 54.3 % (42.8-82.8) 09/16/19 07:00 Band Neutrophils % 0.0 % 09/16/19 07:00 Lymphocytes % 5.3 % (8-40) L D 09/18/19 08:05 Lymphocytes % (Manual) 22.9 % (8-40) 09/16/19 07:00 Monocytes % 6.1 % (3.8-10.2) 09/18/19 08:05 Monocytes % (Manual) 13 % (3.8-10.2) H 09/16/19 07:00 Eosinophils % 1.7 % (0-4.5) 09/18/19 08:05 Eosinophils % (Manual) 6.7 % (0-4.5) H D 09/16/19 07:00 Basophils % 0.4 % (0-2.0) 09/18/19 08:05 Basophils % (Manual) 0.0 % (0-2.0) 09/16/19 07:00 Myelocytes % (Man) 0 % (0-2) 09/16/19 07:00 Promyelocytes % (Man) 0 % (0-2) 09/16/19 07:00 Blast Cells % (Manual) 0 % (0-0) 09/16/19 07:00 Nucleated RBC % 0 % (0-0) 09/18/19 08:05 Metamyelocytes 0 % (0-2) 09/16/19 07:00 Hypochromia 0 09/16/19 07:00 Platelet Estimate Normal 09/16/19 07:00 Polychromasia 0 09/16/19 07:00 Poikilocytosis 0 09/16/19 07:00 Anisocytosis 1+ 09/16/19 07:00 Microcytosis 0 09/16/19 07:00 Macrocytosis 0 09/16/19 07:00 Target Cells Few 09/15/19 13:50 Ovalocytes 1+ 09/16/19 07:00 Acanthocytes (Spur) 1+ 09/14/19 07:00 ESR 50 mm/hr (0-30) H 09/18/19 13:40 Sodium 136 mmol/L (136-145) 09/18/19 08:05 Potassium 4.4 mmol/L (3.5-5.1) 09/18/19 08:05 Chloride 100 mmol/L (98-107) 09/18/19 08:05 Carbon Dioxide 29 mmol/L (21-32) 09/18/19 08:05 Anion Gap 7 MMOL/L (8-16) L 09/18/19 08:05 BUN 30.7 mg/dL (7-18) H 09/18/19 08:05 Creatinine 2.0 mg/dL (0.55-1.3) H 09/18/19 08:05 Est GFR (CKD-EPI)AfAm 28.00 09/18/19 08:05 Est GFR (CKD-EPI)NonAf 24.16 09/18/19 08:05 POC Glucometer 116 UNITS (80-120) 09/16/19 12:06 Random Glucose 69 mg/dL (74-106) L 09/18/19 08:05 Lactic Acid 1.0 mmol/L (0.4-2.0) 09/13/19 18:33 Calcium 9.5 mg/dL (8.5-10.1) 09/18/19 08:05 Phosphorus 4.6 mg/dL (2.5-4.9) 09/18/19 08:05 Magnesium 1.9 mg/dL (1.8-2.4) 09/18/19 08:05 Iron 44 ug/dL (50-175) L 09/14/19 07:00 TIBC 248 ug/dL (250-450) L 09/14/19 07:00 Iron Saturation 17 % (17.5-39) L 09/14/19 07:00 Unsaturated IBC 204 ug/dL (200-275) 09/14/19 07:00 Ferritin 363.3 ng/ml (8-388) 09/16/19 07:00 Total Bilirubin 0.5 mg/dL (0.2-1) 09/18/19 08:05 AST 44 U/L (15-37) H 09/18/19 08:05 ALT 15 U/L (13-61) 09/18/19 08:05 Alkaline Phosphatase 127 U/L (45-117) H 09/18/19 08:05 Creatine Kinase 73 U/L (26-192) 09/13/19 14:10 Troponin I Cancelled 09/13/19 14:40 Total Protein 5.9 g/dl (6.4-8.2) L 09/18/19 08:05 Albumin 2.9 g/dl (3.4-5.0) L 09/18/19 08:05 Vitamin B12 591 pg/ml (193-986) 09/14/19 07:00 Serum Folate 29 ng/mL (3.1-17.5) H 09/14/19 07:00 TSH 3.02 uIU/ml (0.358-3.74) 09/16/19 07:00 Active Medications Current Medications Acetaminophen (Tylenol -) 650 mg PO Q6H PRN PRN Reason: Fever Or Pain Cyclobenzaprine HCl (Flexeril -) 10 mg PO TID [facility] Last Admin: 09/18/19 13:52 Dose: 10 mg Heparin Sodium (Porcine) (Heparin -) 5,000 unit SQ TID [facility] Last Admin: 09/18/19 13:52 Dose: 5,000 unit Sodium Chloride (Normal Saline -) 1,000 mls @ 75 [facility]ls[facility] Ondansetron HCl (Zofran -) 4 mg PO TID [facility] Last Admin: 09/18/19 13:55 Dose: 4 mg Pregabalin (Lyrica -) 75 mg PO DAILY [facility] Last Admin: 09/18/19 11:21 Dose: 75 mg Tbo-Filgrastim (Granix -) 480 mcg SQ DAILY [facility] Last Admin: 09/18/19 11:21 Dose: 480 mcg Tramadol HCl (Ultram -) 50 mg PO Q6H PRN PRN Reason: PAIN LEVEL 4 - 6 Last Admin: 09/18/19 09:11 Dose: 50 mg Home Medications Medication Instructions Recorded Calcium Citrate/Magnesium/D3 2 tab PO DAILY 05/08/17 [Calcium Citrate Chewable Wafer] Cholecalciferol (Vitamin D3) 3,000 unit PO DAILY 05/08/17 [Vitamin D3] Vitamin B Complex 1 each PO DAILY 05/08/17 Ferrous Sulfate [Feosol] 325 mg PO DAILY 01/15/18 Magnesium Citrate 800 mg PO DAILY 01/15/18 Cyclobenzaprine HCl 10 mg PO Q8H 09/13/19 Ondansetron HCl [Zofran] 4 mg PO Q8H 09/13/19 Tramadol HCl 50 mg PO Q8H 09/13/19 Microbiology 09/13/19 14:45 Blood - Peripheral Venous Blood Culture - Preliminary NO GROWTH OBTAINED AFTER 96 HOURS, INCUBATION TO CONTINUE FOR 1 DAYS. 09/13/19 14:45 Blood - Peripheral Venous Blood Culture - Preliminary NO GROWTH OBTAINED AFTER 96 HOURS, INCUBATION TO CONTINUE FOR 1 DAYS. 09/13/19 14:50 Urine - Urine Clean Catch Urine Culture - Final NO GROWTH OBTAINED ASSESSMENT/PLAN: 73 y/o F, pmh of Breast cancer stage 3A w/ mets to the spine, peritoneal cavity , colon, spine, s/p right mastectomy, s/p radiation, b/l ureteral stents w/ b/l hydro, mild b/l pleural effusion, presents c/o of weakness of 1-2 weeks duration and abdominal cramping of 1 day duration #Abdominal cramping/Generalized spasm likely 2/2 to dehydration 2/2 Failure to thrive vs Navelbine adverse effect Zofran for nausea Flexeril IV tylenol Tylenol 650 PRN Discussed with CM/SW- pt likely will not qualify for SNF, will go home with VNS X rays of the femur and sacrum ordered- pending read F/u w/ Dr. Edward #Right forearm pain likely 2/2 to lymph edema IV tylenol for pain Gabapentin switched to Lyrica 75 mg in the setting of rising Cre Tramadol Q6H PRN #[place] [id number] will need to r/o infectious causes like cellulitis of the RUE consider starting doxycycline for Cellulitis of RUE ESR and CRP ordered ESR at 50 FeNa-37 Serum osm- pending Urine osm-340, urine cre-88 R/p UA UCx #Hematuria likely 2/2 to metastasis- now resolved #ALEKSANDER, elevated Cre b/l hydronephrosis s/p ureteral stents Dr. Josue -Urology recom- hydration to return Cre to normal, if Cre remains elevated, consider Renal scan again for obstruction Rising Cre, started on NS at [address] ordered #Anemia likely 2/2 to decreased appetite Nephro following Transfuse if necessary #Breast cancer w/ mets (bone - spine, ribs, femoral shafts, sacrum, peritoneal cavity), s/p mastectomy Currently off Sarai Edward consulted- appreciate consult Pt started on Granix #DVTppx hep sq TID FEN IVF at 75 monitor lytes Regular diet Dispo: f/u Heme/onc, cont monitoring Cre, f/u CT spiral, consider starting doxycycline for Cellulitis of RUE Visit type - Emergency Visit Emergency Visit: Yes ED Registration Date: 09/17/19 Care time: The patient presented to the Emergency Department on the above date and was hospitalized for further evaluation of their emergent condition. - New Patient This patient is new to me today: Yes Date on this admission: 09/19/19 - Critical Care Critical Care patient: No - Discharge Referral Referred to [facility] No ATTENDING PHYSICIAN STATEMENT I saw and evaluated the patient. I reviewed the resident's note and discussed the case with the resident. I agree with the resident's findings and plan as documented. SUBJECTIVE: OBJECTIVE: ASSESSMENT AND PLAN:
--- NOTE | 2019-09-18 15:34 | PN ---
Progress Note, Physician History of Present Illness: Pt seen and examined at bedside. She is awake and alert. She denies shortness of breath. - Current Medication List Current Medications: Active Medications Acetaminophen (Tylenol -) 650 mg PO Q6H PRN PRN Reason: Fever Or Pain Cyclobenzaprine HCl (Flexeril -) 10 mg PO TID [facility]S [facility]CLUDE 234 BEDS AT THE [facility] Last Admin: 09/18/19 13:52 Dose: 10 mg Heparin Sodium (Porcine) (Heparin -) 5,000 unit SQ TID [facility]S [facility]CLUDE 234 BEDS AT THE [facility] Last Admin: 09/18/19 13:52 Dose: 5,000 unit Sodium Chloride (Normal Saline -) 1,000 mls @ 75 mls/hr IV ASDIR COUNTS INCLUDE 234 BEDS AT THE [facility] Ondansetron HCl (Zofran -) 4 mg PO TID COUNTS INCLUDE 234 BEDS AT THE [facility] Last Admin: 09/18/19 13:55 Dose: 4 mg Pregabalin (Lyrica -) 75 mg PO DAILY COUNTS INCLUDE 234 BEDS AT THE [facility] Last Admin: 09/18/19 11:21 Dose: 75 mg Tbo-Filgrastim (Granix -) 480 mcg SQ DAILY COUNTS INCLUDE 234 BEDS AT THE [facility] Last Admin: 09/18/19 11:21 Dose: 480 mcg Tramadol HCl (Ultram -) 50 mg PO Q6H PRN PRN Reason: PAIN LEVEL 4 - 6 Last Admin: 09/18/19 09:11 Dose: 50 mg - Objective Vital Signs: Vital Signs Temperature 98.0 F 09/18/19 13:25 Pulse Rate 98 H 09/18/19 13:25 Respiratory Rate 20 09/18/19 13:25 Blood Pressure 121/69 09/18/19 13:25 O2 Sat by Pulse Oximetry (%) 95 09/18/19 10:00 Constitutional: Yes: Calm Eyes: Yes: Conjunctiva Clear HENT: Yes: Atraumatic Neck: Yes: Supple Cardiovascular: Yes: S1, S2 Respiratory: Yes: CTA Bilaterally Gastrointestinal: Yes: Soft Genitourinary: Yes: WNL Musculoskeletal: Yes: WNL Edema: Yes Edema: RUE: 1+ Neurological: Yes: Oriented Psychiatric: Yes: Oriented Labs: CBC, BMP 09/18/19 08:05 09/18/19 08:05 INR, PTT INR 1.01 (0.83-1.09) 09/13/19 14:40 Assessment/Plan Current Medications Generic Name Dose Route Start Last Admin Trade Name Freq PRN Reason Stop Dose Admin Acetaminophen 650 mg 09/16/19 13:02 Tylenol - PO Q6H PRN Fever Or Pain Cyclobenzaprine HCl 10 mg 09/13/19 22:00 09/18/19 13:52 Flexeril - PO 10 mg TID [facility] Administration Heparin Sodium (Porcine) 5,000 unit 09/13/19 20:30 09/18/19 13:52 Heparin - SQ 5,000 unit TID [facility] Administration Sodium Chloride 1,000 mls @ 75 mls/hr 09/18/19 11:11 Normal Saline - IV ASDIR [facility] Ondansetron HCl 4 mg 09/13/19 22:00 09/18/19 13:55 Zofran - PO 4 mg TID [facility] Administration Pregabalin 75 mg 09/18/19 11:15 09/18/19 11:21 Lyrica - PO 75 mg DAILY [facility] Administration Tbo-Filgrastim 480 mcg 09/16/19 10:00 09/18/19 11:21 Granix - SQ 480 mcg DAILY [facility] Administration Tramadol HCl 50 mg 09/17/19 09:41 09/18/19 09:11 Ultram - PO 50 mg Q6H PRN Administration PAIN LEVEL 4 - 6 Impression 1. CKD 2. leukopenia 3. obstructive uropathy with bilateral hydro 4. breast cancer with mets 5. HTN 6. hyperlipidemia 7. anemia 8. ALEKSANDER Plan - urology input appreciated - will give fluids - repeat labs in am - avoid nsaids - will follow Dr Land
[2019-09-18] MEDS: SODIUM CHLORIDE 1,000 ML IV SCH ×2 (17:15)
--- NOTE | 2019-09-18 19:30 | PN ---
Progress Note (short form) - Note Progress Note: Patient seen and examined with Dr. Virk. Agree with note and plan. Subjective: Doing well. Voices no complaints. R arm pain better controlled. Objective: Last Vital Signs Temp Pulse Resp BP Pulse Ox 98.0 F 98 H 20 121/69 95 09/18/19 13:25 09/18/19 13:25 09/18/19 13:25 09/18/19 13:25 09/18/19 10:00 General: NAD HEENT: MMM CVS: S1, S2, 2-3/6 ENA. Ao Abdomen: Soft, NT, ND Extremities: RUE: edematous, tender to touch. LLE; no significant edema Psychiatric: AO. Appropriate 09/18/19 08:05 09/18/19 08:05 Current Medications Acetaminophen (Tylenol -) 650 mg PO Q6H PRN PRN Reason: Fever Or Pain Cyclobenzaprine HCl (Flexeril -) 10 mg PO TID [facility] Last Admin: 09/18/19 13:52 Dose: 10 mg Heparin Sodium (Porcine) (Heparin -) 5,000 unit SQ TID [facility] Last Admin: 09/18/19 13:52 Dose: 5,000 unit Sodium Chloride (Normal Saline -) 1,000 mls @ 75 mls/hr IV ASDIR [facility] Sodium Chloride (Normal Saline -) 1,000 mls @ 50 mls/hr IV ASDIR [facility] Stop: 09/19/19 15:34 Last Admin: 09/18/19 17:15 Dose: 50 mls/hr Ondansetron HCl (Zofran -) 4 mg PO TID [facility] Last Admin: 09/18/19 13:55 Dose: 4 mg Pregabalin (Lyrica -) 75 mg PO DAILY [facility] Last Admin: 09/18/19 11:21 Dose: 75 mg Tramadol HCl (Ultram -) 50 mg PO Q6H PRN PRN Reason: PAIN LEVEL 4 - 6 Last Admin: 09/18/19 09:11 Dose: 50 mg Assessment and Plan: 73 y/o lady pmh of Breast cancer stage 3A w/ metastases to the spine, peritoneal cavity, colon, spine, s/p right mastectomy, s/p radiation, b/l ureteral stents w/ b/l hydro, mild b/l pleural effusion, presents c/o of weakness of 1-2 weeks duration and abdominal cramping of 1 day duration Recommend: 1) Leukopenia/Neutropenia has improved. Discontinue Growth Factor and monitor closely. 2) Obstructive Uropathy with bilateral hydronephrosis. [facility] help. Hydration and will reevaluate. 3) Breast CA, Stage IV. Prior bone scan did not reveal uptake in C spine, did reveal stable disease with left ribs, sternum, sacrum and femurs involved. 4) Rest per Dr. Virk's note.
[2019-09-18] MEDS ORDERED: PT OWN MED DRAWER 7, Y5N ONE (22:57)
[2019-09-19] MEDS: CYCLOBENZAPRINE HCL 10 MG TABLET (FP) PO SCH ×3 (06:19→23:07)
[2019-09-19] MEDS: HEPARIN NA (PORCINE) 5,000 UNITS/ML 1ML VIAL SQ SCH ×3 (06:19→23:08)
[2019-09-19] MEDS: ONDANSETRON 4 MG TABLET PO SCH ×3 (06:19→23:07)
[2019-09-19 08:06] LABS: HEMATOCRIT 25.2 % (32.4-45.2); HEMOGLOBIN 8.3 GM/dL (10.7-15.3); MEAN PLT VOLUME 7.4 fl (7.5-11.1); PLATELET COUNT 240 K/MM3 (134-434); RBC 2.52 M/mm3 (3.60-5.2); RDW 17.1 % (11.6-15.6); WHITE BLOOD COUNT 21.2 K/mm3 (4.0-10.0)
[2019-09-19 08:36] LABS: ALBUMIN 2.8 g/dl (3.4-5.0); BILIRUBIN,TOTAL 0.5 mg/dL (0.2-1); BLOOD UREA NITROGEN 36.9 mg/dL (7-18); CALCIUM 9.5 mg/dL (8.5-10.1); CREATININE 2.4 mg/dL (0.55-1.3); MAGNESIUM 1.9 mg/dL (1.8-2.4); PHOSPHOROUS 5.3 mg/dL (2.5-4.9); POTASSIUM 4.8 mmol/L (3.5-5.1); TOT PROT 5.7 g/dl (6.4-8.2)
[2019-09-19] MEDS: SODIUM CHLORIDE 1,000 ML IV SCH ×2 (08:55→15:24)
[2019-09-19] MEDS ORDERED: DOXYCYCLINE INJECTION 100 MG in DEXTROSE 5%-WATER - 100 ML IVPB ONE (09:21)
[2019-09-19] MEDS: PREGABALIN 75 MG CAPSULE PO SCH ×2 (09:24→23:09)
[2019-09-19] MEDS ORDERED: DOXYCYCLINE INJECTION 100 MG in DEXTROSE 5%-WATER - 100 ML IVPB SCH (10:00)
[2019-09-19] MEDS ORDERED: DOXYCYCLINE INJECTION 100 MG in DEXTROSE 5%-WATER 100 ML IVPB SCH (10:00)
[2019-09-19] MEDS ORDERED: DOXYCYCLINE HYCLATE 100 MG VIAL ONE (10:04)
[2019-09-19] MEDS ORDERED: DEXTROSE 5%-WATER 100 ML IVPB ONE (10:04)
--- NOTE | 2019-09-19 11:32 | PN ---
Teaching Attending Note Name of Resident: Toñito Quintana ATTENDING PHYSICIAN STATEMENT I saw and evaluated the patient. I reviewed the resident's note and discussed the case with the resident. I agree with the resident's findings and plan as documented. Worsening leukocytosis noted with continued arm pain; initially got abx empirically for cellulitis but then was noted to have colitis on CT. Started on Zosyn, consulting ID. Vertebral changes noted on scan with no errol myelopathic symptoms; she would benefit from further analysis with MRI and neurosurgical evaluation. Furthermore, her GB shows stones without errol - itis. Will check HIDA to r/o any occult GB inflammatory process. She was noted to desaturate when ambulating up 89%; checking CXR, BNP. Pending imaging reads with plain films from yesterday. Update 5P: Patient is indicated to have increased BNP. Discussed with Dr. Land, we gave her a dose of p.o. Lasix and turned off her fluids. We are obtaining a echocardiogram and consulting cardiology for evaluation. We will place her on strict I's and O's and monitor daily weights 10 sys ROS done and negative aside from HPI VS, labs, imaging reviewed NAD, AAO, resting comfortably in bed. RRR s1/2 no mgr Normal muscle tone, moves all 5 extremities with normal apparent strength Neck is supple, trachea midline, no errol LN Lungs CTAB with sym expansion Ostomy is in place, patient endorses increased frequency of stooling; ND +BS no errol organomegaly CN2-12 wnl; no FND NC AT EOMI PERRLA Normal mood, appropriate behavior, euthymic affect No skin breakdown or rashes noted Pending x-ray reads, CT read noted Echocardiogram pending, no prior studies in system ASSESSMENT AND PLAN: Patient is admitted to the hospital for weakness and was found to have now worsening leukocytosis with increased ostomy output consistent with colitis which is noted on the CT scan of her abdomen and pelvis. The patient is indicated as having increased BNP and has been taken off of IV fluid is placed on Lasix and cardiology has been consulted. We are pending further imaging of her spine given the changes seen on CT alongside neurosurgical evaluation. As stated we are up titrating her Lyrica secondary to the ongoing neuropathic pain in her right upper extremity.
--- NOTE | 2019-09-19 11:33 | PN ---
Teaching Attending Note Name of Resident: Toñito Quintana ATTENDING PHYSICIAN STATEMENT I saw and evaluated the patient. I reviewed the resident's note and discussed the case with the resident. I agree with the resident's findings and plan as documented. ATTENDING PHYSICIAN STATEMENT I saw and evaluated the patient. I reviewed the resident's note and discussed the case with the resident. I agree with the resident's findings and plan as documented. Seen and examined; please see resident note for further historical information. I personally verified all limon historical information and exam findings. Personally interpreted all imaging and diagnostics and reviewed appropriate consults. I reviewed all labs and vital signs as per resident note and EMR as documented. I agree with the above assessment and plan unless supplemented by myself in the following. Resident team spoke with urology yesterday and they stated that outpatient follow-up was indicated for the bilateral hydronephrosis as it was a chronic issue. Arm pain is improved and patient had negative duplex. That was not evident earlier in the day, oncology felt that the patient was experiencing a degree of right-sided weakness that was gradual in onset and MRI was ordered. This was compared to their old baseline. Creatinine is stable, pending discussion with nephrology. 10 item review of systems completed and is negative aside from as discussed in the subjective data in my own/the resident documentation. VS, labs, imaging reviewed NAD, AAO, resting comfortably in bed. RRR s1/2 no mgr Normal muscle tone, moves all 5 extremities with normal apparent strength Neck is supple, trachea midline, no errol LN Lungs CTAB with sym expansion Mild tenderness throughout ND +BS no errol organomegaly CN2-12 wnl; no FND NC AT EOMI PERRLA Normal mood, appropriate behavior, euthymic affect No skin breakdown or rashes noted MRI pending ASSESSMENT AND PLAN: Patient is a 73-year-old female here for weakness, being followed by nephrology , urology, hematology and oncology. Pending MRI for right-sided weakness, renal function is stable. Will likely require placement due to deconditioning but she did walk 100 feet approximately so we will need to discuss this with physical therapy. She is slightly improved today. Problems include: Metastatic breast ca; no new issues. RUE weakness/headache; FU MRI Brain to r/o metastatic process Hydronephrosis bilateral s/p stenting-OP followup per uro ALEKSANDER on CKD; stable. Nephrology recs appreciated. Neutropenia; continue precautions. 2/2 oncologic process FU with Dr. Edward Anemia; stable. No bleeding trend CBC
[2019-09-19] MEDS ORDERED: PIPERACILLIN/TAZOB 3.375 GM 3.375 GM in DEXTROSE 5%-WATER - 50 ML IVPB SCH ×2 (12:30→12:45)
--- NOTE | 2019-09-19 13:51 | CON.PULM ---
Consult Consult Specialty:: PULMONARY Referred by:: JUANJOSE Reason for Consultation:: SOB - History of Present Illness Chief Complaint: SOB History of Present Illness: : 73 y/o F, pmh of Breast cancer stage 3A w/ mets to the spine, peritoneal cavity , colon, spine currently off chem with Navelbine, s/p right mastectomy, s/p radiation, b/l ureteral stents w/ b/l hydro, mild b/l pleural effusion, presents c/o of weakness of 1-2 weeks duration and abdominal cramping of 1 day duration. She said that when she has these intense cramps, she has to grab something or lay down for the cramps to be relieved. She reports that 2 weeks ago she came off chemo under Dr. Edward's supervision and had a CAT scan completed. She also reports that she has never needed a walker but began to use one since her weakness started. She is scheduled to meet with Dr. Edward on Saturday 09/16. She has been on and off chemo for 2 years now. She denies an LOC, dizziness, head trauma, palpitations, vertigo, tinnitis, chest pain, shortness of breath, abdominal pain, changes in vision, headaches. - History Source History Provided By: Patient, Medical Record Limitations to Obtaining History: Clinical Condition - Past Medical History BUSINESS SUPPORT ASSOCIATE: Yes: Peripheral Neuropathy Cardio/Vascular: Yes: HTN Renal/: Yes: Renal Failure, Renal Inusuff, UTI (hydronephrosis), Other ( obstructive uropathy) - Alcohol/Substance Use Hx Alcohol Use: No - Smoking History Smoking history: Never smoked Have you smoked in the past 12 months: No Aproximately how many cigarettes per day: 0 Home Medications - Allergies Allergies/Adverse Reactions: Allergies Allergy/AdvReac Type Severity Reaction Status Date / Time No Known Drug Allergies Allergy Verified 09/13/19 12:58 - Home Medications Home Medications: Ambulatory Orders Calcium Citrate/Magnesium/D3 [Calcium Citrate Chewable Wafer] 2 tab PO DAILY 08/12 Cholecalciferol (Vitamin D3) [Vitamin D3] 3,000 unit PO DAILY 05/08/17 Vitamin B Complex 1 each PO DAILY 05/08/17 Ferrous Sulfate [Feosol] 325 mg PO DAILY 01/15/18 Magnesium Citrate 800 mg PO DAILY 01/15/18 Cyclobenzaprine HCl 10 mg PO Q8H 09/13/19 Ondansetron HCl [Zofran] 4 mg PO Q8H 09/13/19 Tramadol HCl 50 mg PO Q8H 09/13/19 Review of Systems Unable to obtain ROS, reason: CLINICAL CONDITION Physical Exam Vital Sings: Vital Signs Temperature 97.9 F 09/19/19 10:00 Pulse Rate 113 H 09/19/19 10:00 Respiratory Rate 09/19/19 10:00 Blood Pressure 145/60 09/19/19 10:00 O2 Sat by Pulse Oximetry (%) 95 09/19/19 09:00 Constitutional: Yes: Anxious, Mild Distress, Pallor Eyes: Yes: EOM Intact HENT: Yes: Normocephalic Neck: Yes: Trachea Midline Cardiovascular: Yes: S1, S2 Respiratory: Yes: Diminished (AT BASES) Gastrointestinal: Yes: Normal Bowel Sounds, Soft Edema: LLE: 2+, RLE: 2+ Labs: CBC, BMP 09/19/19 06:50 09/19/19 06:50 Imaging - Results Chest X-ray: Report Reviewed, Image Reviewed Cat Scan: Report Reviewed, Image Reviewed Problem List - Problems (1) Pleural effusion Code(s): J90 - PLEURAL EFFUSION, NOT ELSEWHERE CLASSIFIED (2) Hypotension Code(s): I95.9 - HYPOTENSION, UNSPECIFIED Qualifiers: Hypotension type: other hypotension type Qualified Code(s): I95.89 - Other hypotension (3) Lymphedema Code(s): I89.0 - LYMPHEDEMA, NOT ELSEWHERE CLASSIFIED (4) Anemia Code(s): D64.9 - ANEMIA, UNSPECIFIED (5) 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 (6) Metastatic disease Code(s): C80.1 - MALIGNANT (PRIMARY) NEOPLASM, UNSPECIFIED Assessment/Plan SOB IS MULTIFACTORIAL ANEMIA/PLEURAL EFFUSIONS/LVDD/MALNUTRITION/FAILURE TO THRIVE DUE TO WIDELY METASTATIC BREAST CANCER WOULD SUPPORT WITH O2 NEEDED BRONCHODILATORS PRN/KEEP HGB GREATER THAN 8 GMS WILL FOLLOW Comfort WARNER MD
[2019-09-19] MEDS ORDERED: DEXTROSE 5%-WATER - 50 ML IVPB ONE ×2 (14:18→18:29)
[2019-09-19] MEDS ORDERED: PT OWN MED DRAWER 7, Y5N ONE ×2 (14:18→21:13)
[2019-09-19] MEDS ORDERED: PIPERACILLIN/TAZOBACTAM 3.375 GM VIAL IVPB ONE (14:18)
--- NOTE | 2019-09-19 14:36 | PN ---
Progress Note (short form) - Note Progress Note: Patient seen and examined Difficulty with RUE mobility and with decrease ROM Last Vital Signs Temp Pulse Resp BP Pulse Ox 97.9 F 113 H 20 145/60 95 09/19/19 10:00 09/19/19 10:00 09/19/19 10:00 09/19/19 10:00 09/19/19 09:00 HEENT: PAT, EOM Intact Oropharynx: No thrush, No mucositis Cor: RSR, No murmurs, No gallops Lungs: Clear to P&A Abd: Soft, Normal bowel sounds, No organomegaly Ext:LE edema Skin: No rashes, Integument intact CBC, BMP 09/19/19 06:50 09/19/19 06:50 Current Medications Generic Name Dose Route Start Last Admin Trade Name Freq PRN Reason Stop Dose Admin Acetaminophen 650 mg 09/16/19 13:02 Tylenol - PO Q6H PRN Fever Or Pain Cyclobenzaprine HCl 10 mg 09/13/19 22:00 09/19/19 14:24 Flexeril - PO 10 mg TID TRICIA Administration Heparin Sodium (Porcine) 5,000 unit 09/13/19 20:30 09/19/19 14:26 Heparin - SQ 5,000 unit TID TRICIA Administration Sodium Chloride 1,000 mls @ 75 mls/hr 09/18/19 11:11 09/19/19 08:55 Normal Saline - IV 75 mls/hr ASDIR TRICIA Administration Sodium Chloride 1,000 mls @ 50 mls/hr 09/18/19 15:45 09/18/19 17:15 Normal Saline - IV 09/19/19 15:34 50 mls/hr ASDIR TRICIA Administration Piperacillin Sod/Tazobactam 50 mls @ 100 mls/hr 09/19/19 12:30 Sod 3.375 gm/ Dextrose IVPB Q8H-IV TRICIA Protocol Piperacillin Sod/Tazobactam 50 mls @ 100 mls/hr 09/19/19 12:45 Sod 3.375 gm/ Dextrose IVPB 09/20/19 12:44 Q8H-IV TRICIA Protocol Ondansetron HCl 4 mg 09/13/19 22:00 09/19/19 14:26 Zofran - PO Not Given TID TRICIA Pregabalin 75 mg 09/19/19 22:20 Lyrica - PO BID TRICIA Tramadol HCl 50 mg 09/17/19 09:41 09/18/19 09:11 Ultram - PO 50 mg Q6H PRN Administration PAIN LEVEL 4 - 6 Impression: Metastatic breast ca Bone scan and plain films with lytic lesions in femurs Decrease ROM -RUE Compression fx lumbar spine Pleural effusions R>L Anemia Plan: MRI of femurs, C-spine
--- NOTE | 2019-09-19 15:49 | PN ---
Physical Exam: SUBJECTIVE: Patient seen and examined. Pt is doing well. No overnight events or issues. Pt still c/o of right arm pain and back pain. Improved with pain meds. Afebrile and asymptomatic. Denies f/c/n/v/d/sob, chest pain OBJECTIVE: Vital Signs Period Temp Pulse Resp BP Sys/Avila Pulse Ox Last 24 Hr 97.4 F-98.2 F 88-113 20-21 122-145/60-83 95-95 GENERAL: AOx3, NAD HEAD: Normal with no signs of trauma. EYES: PERRL, extraocular movements intact, sclera anicteric, conjunctiva clear. No ptosis. ENT: oropharynx clear without exudates, moist mucous membranes. LUNGS: Breath sounds equal, clear to auscultation bilaterally, no wheezes, no crackles HEART: Regular rate and rhythm, S1, S2 without murmur, rub or gallop. ABDOMEN: Soft, nontender, nondistended, normoactive bowel sounds, no guarding, EXTREMITIES: RUE mild erythema and swelling, LUE normal, pulses intact b/l NEUROLOGICAL: Cranial nerves II through XII grossly intact. Normal speech, gait not observed. Laboratory Results - last 24 hr 09/19/19 09/19/19 06:50 06:50 WBC 21.2 H RBC 2.52 L Hgb 8.3 L Hct 25.2 L MCV 100.0 H MCH 33.0 MCHC 33.0 RDW 17.1 H Plt Count 240 MPV 7.4 L Sodium 135 L Potassium 4.8 Chloride 100 Carbon Dioxide 28 Anion Gap 7 L BUN 36.9 H Creatinine 2.4 H Est GFR (CKD-EPI)AfAm 22.46 Est GFR (CKD-EPI)NonAf 19.38 Random Glucose 78 Calcium 9.5 Phosphorus 5.3 H Magnesium 1.9 Total Bilirubin 0.5 AST 45 H ALT 16 Alkaline Phosphatase 141 H Total Protein 5.7 L Albumin 2.8 L Active Medications Generic Name Dose Route Start Last Admin Trade Name Freq PRN Reason Stop Dose Admin Acetaminophen 650 mg 09/16/19 13:02 Tylenol - PO Q6H PRN Fever Or Pain Cyclobenzaprine HCl 10 mg 09/13/19 22:00 09/19/19 14:24 Flexeril - PO 10 mg TID TRICIA Administration Heparin Sodium (Porcine) 5,000 unit 09/13/19 20:30 09/19/19 14:26 Heparin - SQ 5,000 unit TID TRICIA Administration Sodium Chloride 1,000 mls @ 75 mls/hr 09/18/19 11:11 09/19/19 15:24 Normal Saline - IV Not Given ASDIR TRICIA Piperacillin Sod/Tazobactam 50 mls @ 100 mls/hr 09/19/19 12:30 Sod 3.375 gm/ Dextrose IVPB Q8H-IV TRICIA Protocol Piperacillin Sod/Tazobactam 50 mls @ 100 mls/hr 09/19/19 12:45 09/19/19 15:25 Sod 3.375 gm/ Dextrose IVPB 09/20/19 12:44 100 mls/hr Q8H-IV TRICIA Administration Protocol Ondansetron HCl 4 mg 09/13/19 22:00 09/19/19 14:26 Zofran - PO Not Given TID TRICIA Pregabalin 75 mg 09/19/19 22:20 Lyrica - PO BID TRICIA Tramadol HCl 50 mg 09/17/19 09:41 09/18/19 09:11 Ultram - PO 50 mg Q6H PRN Administration PAIN LEVEL 4 - 6 ASSESSMENT/PLAN: 73 y/o F, pmh of Breast cancer stage 3A w/ mets to the spine, peritoneal cavity , colon, spine, s/p right mastectomy, s/p radiation, b/l ureteral stents w/ b/l hydro, mild b/l pleural effusion, presents c/o of weakness of 1-2 weeks duration and abdominal cramping of 1 day duration #Abdominal cramping/Generalized spasm likely 2/2 to dehydration 2/2 Failure to thrive vs Navelbine adverse effect Zofran, Flexeril , IV tylenol , Tylenol 650 PRN, Tramadol Q6H PRN Discussed with CM/SW- pt likely will not qualify for SNF, will go home with VNS Sacrum x rays ordered- pending read C-Spine, L-spine, femur MRIs-pending Waiting for neurosurgery consult- Dr. Acosta #Right forearm pain likely 2/2 to lymph edema vs Cellulitis Erythematous mildly and tenderness Started on Zosyn #Leukocytosis WBC trending up CT a/p likely colitis- started zosyn FeNa-37 Serum osm- pending Urine osm-340, urine cre-88 R/p UA UCx- neg Stool Cx and rectal swab #ALEKSANDER, elevated Cre b/l hydronephrosis s/p ureteral stents Spiral CT: Thickening of the ascending and transverse colon, r/o colitis, diverticulosis coli in sigmoid, no diverticulitis, b/l double J ureteral stents , slight increased in b/l hydro, small GB within partially distended GB, small amount of free fluid/ascites in the upper abdomen, previously visualized large cystic masslike density in the right hemipelvis is again seen without interval change, multiple compression fx in lumbar and included lower thoracic spine with mild retropulsion of L4 superior/posterior endplate resulting in mild compromise of the spinal canal. Trace pericardial effusion. Increased right pleural effusion Rt>Lt #Anemia Transfuse if necessary #Breast cancer w/ mets (bone - spine, ribs, femoral shafts, sacrum, peritoneal cavity), s/p mastectomy Currently off Navelbine Granix d/azucena #DVTppx hep sq TID FEN IVF at 75 monitor lytes Regular diet Dispo: f/u Heme/onc, cont monitoring Cre, cont Abx, f/u w/ neuro Visit type - Emergency Visit Emergency Visit: Yes ED Registration Date: 09/17/19 Care time: The patient presented to the Emergency Department on the above date and was hospitalized for further evaluation of their emergent condition. - New Patient This patient is new to me today: Yes Date on this admission: 09/19/19 - Critical Care Critical Care patient: No - Discharge Referral Referred to [facility] Med P.C[facility] No ATTENDING PHYSICIAN STATEMENT I saw and evaluated the patient. I reviewed the resident's note and discussed the case with the resident. I agree with the resident's findings and plan as documented. SUBJECTIVE: OBJECTIVE: ASSESSMENT AND PLAN:
[2019-09-19 16:03] LABS: N-TERMINAL BNP 5940.9 pg/ml (5-125)
[2019-09-19] MEDS ORDERED: FUROSEMIDE 40 MG TABLET (FP) PO ONE (16:15)
--- NOTE | 2019-09-19 16:15 | PN ---
Progress Note, Physician History of Present Illness: Pt seen and examined at bedside. She complains of edema. - Current Medication List Current Medications: Active Medications Acetaminophen (Tylenol -) 650 mg PO Q6H PRN PRN Reason: Fever Or Pain Cyclobenzaprine HCl (Flexeril -) 10 mg PO TID [facility] Last Admin: 09/19/19 14:24 Dose: 10 mg Heparin Sodium (Porcine) (Heparin -) 5,000 unit SQ TID TRICIA Last Admin: 09/19/19 14:26 Dose: 5,000 unit Sodium Chloride (Normal Saline -) 1,000 mls @ 75 mls/hr IV ASDIR TRICIA Last Admin: 09/19/19 15:24 Dose: Not Given Piperacillin Sod/Tazobactam (Sod 3.375 gm/ Dextrose) 50 mls @ 100 mls/hr IVPB Q8H-IV TRICIA; Protocol Piperacillin Sod/Tazobactam (Sod 3.375 gm/ Dextrose) 50 mls @ 100 mls/hr IVPB Q8H-IV TRICIA; Protocol Stop: 09/20/19 12:44 Last Admin: 09/19/19 15:25 Dose: 100 mls/hr Ondansetron HCl (Zofran -) 4 mg PO TID TRICIA Last Admin: 09/19/19 14:26 Dose: Not Given Pregabalin (Lyrica -) 75 mg PO BID TRICIA Tramadol HCl (Ultram -) 50 mg PO Q6H PRN PRN Reason: PAIN LEVEL 4 - 6 Last Admin: 09/18/19 09:11 Dose: 50 mg - Objective Vital Signs: Vital Signs Temperature 98.6 F 09/19/19 15:47 Pulse Rate 101 H 09/19/19 15:47 Respiratory Rate 20 09/19/19 15:47 Blood Pressure 147/80 09/19/19 15:47 O2 Sat by Pulse Oximetry (%) 95 09/19/19 09:00 Constitutional: Yes: Calm Eyes: Yes: Conjunctiva Clear HENT: Yes: Atraumatic Cardiovascular: Yes: S1, S2 Respiratory: Yes: Rhonchi Gastrointestinal: Yes: Soft Genitourinary: Yes: WNL Musculoskeletal: Yes: WNL Edema: Yes Edema: LLE: 1+, RLE: 1+ Neurological: Yes: Oriented Psychiatric: Yes: Oriented Labs: CBC, BMP 09/19/19 06:50 09/19/19 06:50 INR, PTT INR 1.01 (0.83-1.09) 09/13/19 14:40 Assessment/Plan Current Medications Generic Name Dose Route Start Last Admin Trade Name Freq PRN Reason Stop Dose Admin Acetaminophen 650 mg 09/16/19 13:02 Tylenol - PO Q6H PRN Fever Or Pain Cyclobenzaprine HCl 10 mg 09/13/19 22:00 09/19/19 14:24 Flexeril - PO 10 mg TID TRICIA Administration Heparin Sodium (Porcine) 5,000 unit 09/13/19 20:30 09/19/19 14:26 Heparin - SQ 5,000 unit TID TRICIA Administration Sodium Chloride 1,000 mls @ 75 mls/hr 09/18/19 11:11 09/19/19 15:24 Normal Saline - IV Not Given ASDIR TRICIA Piperacillin Sod/Tazobactam 50 mls @ 100 mls/hr 09/19/19 12:30 Sod 3.375 gm/ Dextrose IVPB Q8H-IV TRICIA Protocol Piperacillin Sod/Tazobactam 50 mls @ 100 mls/hr 09/19/19 12:45 09/19/19 15:25 Sod 3.375 gm/ Dextrose IVPB 09/20/19 12:44 100 mls/hr Q8H-IV TRICIA Administration Protocol Ondansetron HCl 4 mg 09/13/19 22:00 09/19/19 14:26 Zofran - PO Not Given TID TRICIA Pregabalin 75 mg 09/19/19 22:20 Lyrica - PO BID TRICIA Tramadol HCl 50 mg 09/17/19 09:41 09/18/19 09:11 Ultram - PO 50 mg Q6H PRN Administration PAIN LEVEL 4 - 6 Impression 1. CKD 2. leukopenia 3. obstructive uropathy with bilateral hydro 4. breast cancer with mets 5. HTN 6. hyperlipidemia 7. anemia 8. ALEKSANDER Plan - will stop fluids - will give dose of lasix - repeat labs in am - urology follow up - avoid nsaids Dr Land
--- NOTE | 2019-09-19 16:54 | PN ---
Progress Note (short form) - Note Progress Note: ID CONSULT DICTATED CELLULITIS R UE COLITIS METASTATIC BREAST CA AZOTEMIA EMPIRIC VANCO/ ZOSYN ADJUSTED FOR AZOTEMIA
--- NOTE | 2019-09-19 17:25 | CONS ---
INFECTIOUS DISEASE CONSULTATION DATE OF CONSULTATION: DATE OF DICTATION: 09/19/2019 HISTORY: The patient is a 73-year-old female who was evaluated for cellulitis of the right upper extremity and cellulitis. She has a history of metastatic breast cancer. She presented to the hospital on September 17, 2019, with complaints of generalized weakness and abdominal cramping. She was noted to be leukopenic and neutropenic. The patient's course was complicated by developing of worsening right upper extremity swelling, pain, erythema, and warmth with decreased range of motion. According to the patient, she has a history of lymphedema of the right upper extremity; however, the arm appears more swollen than usual. A Doppler exam was performed and was negative for DVT. She was empirically treated with vancomycin and Zosyn. At the present time, she complains of right upper extremity pain and decreased range of motion. She reports that her abdominal "spasms" have resolved on Zosyn. PAST MEDICAL HISTORY: Positive for widely metastatic breast cancer with spine involvement, history of bowel obstruction status post colostomy, bilateral pleural effusions, bilateral ureteral stents, lymphedema. ALLERGIES: No known allergies. MEDICATIONS: Include Tylenol, Flexeril, Zosyn, Tramadol. SOCIAL HISTORY: She resides in the community. Nonsmoker. Nondrinker. SYSTEMS REVIEW: Neurologic: No loss of consciousness, seizure activity. Cardiac: Negative chest pain or palpitations. Respiratory: Negative cough or sputum production. Gastrointestinal: Status post bowel resection and colostomy. Genitourinary: Negative for urinary tract infection. LABORATORY DATA: White count 21.2, hematocrit 25.2, platelets 240, creatinine 2.4, total bilirubin 0.5, alkaline phosphatase 141, AST 45. Urinalysis, 2 white cells. Doppler exam of the right upper extremity negative for DVT. CAT scan of the abdomen shows thickening of the ascending and transverse colon, diverticulosis, bilateral ureteral stents, multiple compression fractures lumbar spine and lower thoracic spine. CAT scan of the chest, bilateral pleural effusions. PHYSICAL EXAMINATION: General: The patient is awake and responsive. She is weak appearing. Supine in bed. She is in no acute distress. Her breathing is nonlabored. Vital Signs: Temperature 98.6, blood pressure 147/80, pulse 100 regular, respirations 20 per minute. HEENT: Sclerae anicteric. Heart: Sounds S1, S2. Lungs: Diminished breath sounds bilaterally. Abdomen: Soft. No tenderness elicited. Healed surgical scars. There is a patent ostomy with soft stool. Extremities: Positive for lower extremity edema. There is diffuse swelling of the right upper extremity with ill-defined erythema and warmth to touch. No crepitus or fluctuance. No lymphangitic streaking. IMPRESSION: 1. Cellulitis of the right upper extremity. 2. Colitis. 3. Metastatic breast cancer. 4. Azotemia. PLAN: Continue empiric vancomycin and Zosyn adjusted for azotemia for treatment of right upper extremity cellulitis and colitis. Continue elevation of the right upper extremity. Analgesics as needed. Thank you for the kind referral. CHASITY VOSS M.D. [id number]
[2019-09-19] MEDS: VANCOMYCIN 1 GRAM (PRE-DOCKED) 1,000 MG/250 ML BAG IVPB SCH (17:44)
[2019-09-19] MEDS ORDERED: PIPERACILLIN/TAZOBACTAM 2.25 GM VIAL IVPB ONE (18:28)
[2019-09-19] MEDS: ACETAMINOPHEN 325 MG TABLET (FP) PO PRN (18:33)
[2019-09-19] MEDS: PIPERACILLIN/TAZOB 2.25 GM 2.25 GM in DEXTROSE 5%-WATER - 50 ML IVPB SCH (19:03)
[2019-09-20] MEDS ORDERED: DEXTROSE 5%-WATER - 50 ML IVPB ONE ×3 (00:35→17:10)
[2019-09-20] MEDS ORDERED: PIPERACILLIN/TAZOBACTAM 2.25 GM VIAL IVPB ONE ×3 (00:35→17:10)
[2019-09-20] MEDS: PIPERACILLIN/TAZOB 2.25 GM 2.25 GM in DEXTROSE 5%-WATER - 50 ML IVPB SCH ×3 (01:43→17:12)
[2019-09-20] MEDS: HEPARIN NA (PORCINE) 5,000 UNITS/ML 1ML VIAL SQ SCH ×3 (05:17→21:59)
[2019-09-20] MEDS: ONDANSETRON 4 MG TABLET PO SCH ×3 (05:17→21:59)
[2019-09-20] MEDS: CYCLOBENZAPRINE HCL 10 MG TABLET (FP) PO SCH (05:17)
[2019-09-20] MEDS ORDERED: PT OWN MED DRAWER 7, Y5N ONE ×2 (05:19→13:58)
[2019-09-20 07:50] LABS: HEMATOCRIT 25.4 % (32.4-45.2); HEMOGLOBIN 8.4 GM/dL (10.7-15.3); MCH 32.8 pg (25.7-33.7); MCHC 33.1 g/dl (32.0-36.0); MEAN CELL VOLUME 99.1 fl (80-96); MEAN PLT VOLUME 7.3 fl (7.5-11.1); PLATELET COUNT 213 K/MM3 (134-434); RBC 2.57 M/mm3 (3.60-5.2); WHITE BLOOD COUNT 17.1 K/mm3 (4.0-10.0)
[2019-09-20 08:58] LABS: ALBUMIN 2.6 g/dl (3.4-5.0); BILIRUBIN,TOTAL 0.4 mg/dL (0.2-1); BLOOD UREA NITROGEN 42.2 mg/dL (7-18); CALCIUM 9.3 mg/dL (8.5-10.1); CREATININE 2.8 mg/dL (0.55-1.3); MAGNESIUM 1.8 mg/dL (1.8-2.4); POTASSIUM 4.6 mmol/L (3.5-5.1); TOT PROT 5.3 g/dl (6.4-8.2)
[2019-09-20] MEDS: PREGABALIN 75 MG CAPSULE PO SCH ×2 (09:14→21:59)
--- NOTE | 2019-09-20 10:46 | PN ---
Physical Exam: SUBJECTIVE: Patient seen and examined. Seen by nephrology this morning who recommends renal scan with Lasix to help determine if she has functional dilation with repeat labs in the a.m. Avoiding NSAIDs, and they recommended follow-up with urology. Call has been placed. Renal ultrasound shows worsening severe bilateral hydronephrosis despite the stents. She is in good spirits and has no further complaints. -Pulmonary medicine saw the patient yesterday and stated that the current symptomatology is multifactorial and that we will support with as needed O2 and bronchodilators. They suggested the transfusion guideline of 8 g. -Infectious disease saw the patient does feel that there may be a component of some cellulitis alongside with the colitis. The rubor and pain is controlled today. She has improved analgesia with the twice daily dosing of the Lyrica. 10 item review of systems completed and is negative aside from as discussed in the subjective data in my own/the resident documentation. OBJECTIVE: Vital Signs Period Temp Pulse Resp BP Sys/Avila Pulse Ox Last 24 Hr 97.1 F-100.4 F 82-101 20-20 136-149/79-88 95-97 GENERAL: The patient is awake, alert, and fully oriented, in no acute distress. HEAD: Normal with no signs of trauma. EYES: PERRL, extraocular movements intact, sclera anicteric, conjunctiva clear. No ptosis. ENT: Ears normal, nares patent, oropharynx clear without exudates, moist mucous membranes. NECK: Trachea midline, full range of motion, supple. LUNGS: Breath sounds equal, clear to auscultation bilaterally, no wheezes, no crackles, no accessory muscle use. HEART: Regular rate and rhythm, S1, S2 without murmur, rub or gallop. ABDOMEN: Soft, nontender, nondistended, normoactive bowel sounds, no guarding. Liquid ostomy output. EXTREMITIES: 2+ pulses, warm, well-perfused, no edema. NEUROLOGICAL: Cranial nerves II through XII grossly intact. Normal speech, gait not observed. PSYCH: Normal mood, normal affect. SKIN: Warm, dry, normal turgor, no rashes or lesions noted Laboratory Results - last 24 hr 09/19/19 09/20/19 09/20/19 06:50 06:55 06:55 WBC 17.1 H RBC 2.57 L Hgb 8.4 L Hct 25.4 L MCV 99.1 H MCH 32.8 MCHC 33.1 RDW 17.0 H Plt Count 213 MPV 7.3 L Sodium 135 L 135 L Potassium 4.8 4.6 Chloride 100 101 Carbon Dioxide 28 25 Anion Gap 7 L 9 BUN 36.9 H 42.2 H Creatinine 2.4 H 2.8 H Est GFR (CKD-EPI)AfAm 22.46 18.64 Est GFR (CKD-EPI)NonAf 19.38 16.08 Random Glucose 78 82 Serum Osmolality 301 Calcium 9.5 9.3 Phosphorus 5.3 H 6.0 H Magnesium 1.9 1.8 Total Bilirubin 0.5 0.4 AST 45 H 42 H ALT 16 15 Alkaline Phosphatase 141 H 151 H B-Natriuretic Peptide 5940.9 H Total Protein 5.7 L 5.3 L Albumin 2.8 L 2.6 L Active Medications Generic Name Dose Route Start Last Admin Trade Name Freq PRN Reason Stop Dose Admin Acetaminophen 650 mg 09/16/19 13:02 09/19/19 18:33 Tylenol - PO 650 mg Q6H PRN Administration Fever Or Pain Cyclobenzaprine HCl 10 mg 09/13/19 22:00 09/20/19 05:17 Flexeril - PO 10 mg TID TRICIA Administration Heparin Sodium (Porcine) 5,000 unit 09/13/19 20:30 09/20/19 05:17 Heparin - SQ 5,000 unit TID TRICIA Administration Piperacillin Sod/Tazobactam 50 mls @ 100 mls/hr 09/19/19 18:00 09/20/19 09:14 Sod 2.25 gm/ Dextrose IVPB 100 mls/hr Q8H-IV TRICIA Administration Protocol Vancomycin HCl 1,000 mg in 250 mls @ 166.667 mls/hr 09/19/19 17:15 09/19/19 17:44 Vancomycin (Pre-Docked) IVPB 166.667 mls/hr Q24H TRICIA Administration Protocol Ondansetron HCl 4 mg 09/13/19 22:00 09/20/19 05:17 Zofran - PO 4 mg TID TRICIA Administration Pregabalin 75 mg 09/19/19 22:20 09/20/19 09:14 Lyrica - PO 75 mg BID TRICIA Administration Tramadol HCl 50 mg 09/17/19 09:41 09/18/19 09:11 Ultram - PO 50 mg Q6H PRN Administration PAIN LEVEL 4 - 6 -Cervical spine MRI has yet to be read but is completed. -Lumbar spine MRI reveals diffuse metastatic disease with bilateral hydronephrosis despite the stents likely due to the bladder carcinoma as well as diffuse degenerative changes which are worsening compared to prior examinations with significant stenosis noted at L3-L4 and L4-L5 with interval compression fracture of L4 which now appears to be chronic. -Femur x-ray of the left side reveals permeative lesion up to 3 cm in the distal femur concordant with the bone scan findings -Sacrum x-ray pending read -C-spine x-ray pending read ASSESSMENT/PLAN: Patient presented to the emergency room for weakness/body tremors and is found to have worsening renal failure with worsening hydronephrosis despite stenting, pending reevaluation from urology. Nephrology continues to follow, recommended Lasix renal scan with nuclear medicine which I have ordered and continual avoidance of nephrotoxins and monitoring renal function daily. They were found to have cellulitis of the right upper extremity in the area they have lymphedema which complicates wound healing, as well as colitis. We have him on broad-spectrum antibiotics as per ID with empiric vancomycin and Zosyn have been dose adjusted for her azotemia, and furthermore we will continue to monitor white count and CRP. Due to progressive lumbar spine changes seen on the CT of the abdomen and pelvis incidentally, I further pursued this with lumbar and cervical MRIs which are pending. The lumbar study as discussed above , and they are pending consultation with Dr. Valdez for the compression fx, stenosis, etc. They no not have any progressive myelopathic symptoms. Pending evaluation from interventional radiology due to the right greater than left pleural effusion that may require thoracentesis. Problems include: -Worsening renal failure, status post stenting with worsening hydronephrosis. -Sepsis secondary to cellulitis, colitis -Metastatic breast cancer -Compression fracture of the lumbar spine, L4 -Lumbar spinal stenosis, pending neurosurgical evaluation -Ongoing anemia of chronic disease, transfusion threshold for hemoglobin of 8 -Severe hydronephrosis status post stenting -Bilateral pleural effusions, right greater than left. Follow-up with interventional radiology consult to see if thoracentesis would be indicated. BNP is elevated which is secondary to either primary process but likely is shrouded by the renal retention. Echocardiogram has been ordered and is pending. Follow-up with cardiology consultation, low threshold to upgrade patient to telemetry if needed. -Multiple lytic lesions, MRI of the lumbar spine noted. C-spine has been completed. Imaging of the femurs is noted as well. -Leukopenia, secondary to global oncologic processes -History of hypertension -History of hyperlipidemia -Severe hypoalbuminemia secondary to cancer, protein calorie malnutrition. -Hyperphosphatemia secondary to renal failure, nephrology following. Continuing to monitor -Transaminitis with elevated alkaline phosphatase, up to 151 from 141 with AST persistently elevated. Trend CMP -Leukocytosis secondary to acute sepsis, improved, continue to monitor. -Chronic lymphedema of the left arm secondary to breast cancer in the surrounding issues, complicates the cellulitis -Overweight, BMI 25 CODE STATUS remains unchanged, discussing with consulting services Visit type - Emergency Visit Emergency Visit: No - New Patient This patient is new to me today: No - Critical Care Critical Care patient: No
--- NOTE | 2019-09-20 10:57 | PN ---
Progress Note (short form) - Note Progress Note: RENAL Pt is awake and alert comfortable Last Vital Signs Temp Pulse Resp BP Pulse Ox 98.1 F 82 20 141/88 97 09/20/19 09:46 09/20/19 09:46 09/20/19 09:46 09/20/19 09:46 09/20/19 09:00 lungs clear has a catheter on right chest right mastectomy scar cvs s1s2 abd soft, +ostomy bag ext +edema neuro somnolent CBC, BMP 09/20/19 06:55 09/20/19 06:55 Current Medications Generic Name Dose Route Start Last Admin Trade Name Freq PRN Reason Stop Dose Admin Acetaminophen 650 mg 09/16/19 13:02 09/19/19 18:33 Tylenol - PO 650 mg Q6H PRN Administration Fever Or Pain Cyclobenzaprine HCl 10 mg 09/13/19 22:00 09/20/19 05:17 Flexeril - PO 10 mg TID TRICIA Administration Heparin Sodium (Porcine) 5,000 unit 09/13/19 20:30 09/20/19 05:17 Heparin - SQ 5,000 unit TID TRICIA Administration Piperacillin Sod/Tazobactam 50 mls @ 100 mls/hr 09/19/19 18:00 09/20/19 09:14 Sod 2.25 gm/ Dextrose IVPB 100 mls/hr Q8H-IV TRICIA Administration Protocol Vancomycin HCl 1,000 mg in 250 mls @ 166.667 mls/hr 09/19/19 17:15 09/19/19 17:44 Vancomycin (Pre-Docked) IVPB 166.667 mls/hr Q24H TRICIA Administration Protocol Ondansetron HCl 4 mg 09/13/19 22:00 09/20/19 05:17 Zofran - PO 4 mg TID TRICIA Administration Pregabalin 75 mg 09/19/19 22:20 09/20/19 09:14 Lyrica - PO 75 mg BID TRICIA Administration Tramadol HCl 50 mg 09/17/19 09:41 09/18/19 09:11 Ultram - PO 50 mg Q6H PRN Administration PAIN LEVEL 4 - 6 Impression 1. CKD 2. leukopenia 3. bilateral hydro despite stents 4. breast cancer with mets 5. HTN 6. hyperlipidemia 7. anemia 8. ALEKSANDER Plan - renal scan with lasix may help determining if she has a functional dilatation - repeat labs in am - urology follow up necessary - avoid nsaids MV
--- NOTE | 2019-09-20 12:01 | PN ---
Progress Note (short form) - Note Progress Note: abdominal pain resolved right arm less red, still some swelling Vital Signs Period Temp Pulse Resp BP Sys/Avila Pulse Ox Last 24 Hr 97.1 F-100.4 F 82-101 20-20 136-149/79-88 95-97 cor-rrr lungs clear less erythema and swelling RUE abd +colostomy, NT ext no edema CBC, BMP 09/20/19 06:55 09/20/19 06:55 Microbiology 09/19/19 14:00 Rectal Swab Salmonella/Shigella Culture - Preliminary NO ENTERIC PATHOGENS, 24 HOURS, ON PRIMARY PLATES 09/19/19 14:00 Rectal Swab Yersinia Culture - Preliminary NO ENTERIC PATHOGENS, 24 HOURS, ON PRIMARY PLATES 09/19/19 14:00 Rectal Swab Vibrio Culture - Final NO GROWTH OF VIBRIO SPECIES OBTAINED 09/19/19 14:00 Rectal Swab Escherichia coli 0157 Culture - Final NO GROWTH OF E COLI 0157 OBTAINED 09/19/19 14:00 Colon Fluid Gram Stain - Final 09/18/19 11:30 Urine - Urine Clean Catch Urine Culture - Final NO GROWTH OBTAINED 09/13/19 14:45 Blood - Peripheral Venous Blood Culture - Final NO GROWTH AFTER 5 DAYS INCUBATION 09/13/19 14:45 Blood - Peripheral Venous Blood Culture - Final NO GROWTH AFTER 5 DAYS INCUBATION 09/13/19 14:50 Urine - Urine Clean Catch Urine Culture - Final NO GROWTH OBTAINED a/p colitis- f/u cultures, cdiff, continue zosyn, abd pain resolved right arm erythema resolving- check vancomycin trough before next dose- d/w RN worsening renal failure- f/u with renal and urology metastatic breast cancer
--- NOTE | 2019-09-20 12:41 | CON.CARD ---
Consult Consult Specialty:: Cardiology for Dr. Benítez Referred by:: Hospitalist Medicine Reason for Consultation:: Pleural effusion - History of Present Illness Chief Complaint: ALCOCER History of Present Illness: 73 y/o F, pmh of Breast cancer stage 3A w/ mets to the spine, peritoneal cavity , colon, spine currently off chem with Navelbine, s/p right mastectomy, s/p radiation, b/l ureteral stents w/ b/l hydro, mild b/l pleural effusion, initially presented c/o of weakness of 1-2 weeks duration and abdominal cramping of 1 day duration. She reports that 2 weeks ago she came off chemo under Dr. Edward's supervision and had a CAT scan completed showing R>L effusion. She also reports that she has never needed a walker but began to use one since her weakness started. She has been on and off chemo for 2 years now. She reports ALCOCER walking fast and bilateral LE edema, but denies LOC, dizziness, head trauma, palpitations, vertigo, tinnitis, chest pain, shortness of breath, orthopnea, PND. 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 DIRECTOR: Yes: Peripheral Neuropathy Cardio/Vascular: Yes: HTN Renal/: Yes: Renal Failure, Renal Inusuff, UTI (hydronephrosis), Other ( obstructive uropathy) - Alcohol/Substance Use Hx Alcohol Use: No - Smoking History Smoking history: Never smoked Have you smoked in the past 12 months: No Aproximately how many cigarettes per day: 0 Home Medications - Allergies Allergies/Adverse Reactions: Allergies Allergy/AdvReac Type Severity Reaction Status Date / Time No Known Drug Allergies Allergy Verified 09/13/19 12:58 - Home Medications Home Medications: Ambulatory Orders Calcium Citrate/Magnesium/D3 [Calcium Citrate Chewable Wafer] 2 tab PO DAILY 08/12 Cholecalciferol (Vitamin D3) [Vitamin D3] 3,000 unit PO DAILY 05/08/17 Vitamin B Complex 1 each PO DAILY 05/08/17 Ferrous Sulfate [Feosol] 325 mg PO DAILY 01/15/18 Magnesium Citrate 800 mg PO DAILY 01/15/18 Cyclobenzaprine HCl 10 mg PO Q8H 09/13/19 Ondansetron HCl [Zofran] 4 mg PO Q8H 09/13/19 Tramadol HCl 50 mg PO Q8H 09/13/19 Review of Systems - Review of Systems Cardiovascular: reports: Edema Respiratory: reports: SOB on Exertion Vital Signs: Vital Signs Temperature 98.1 F 09/20/19 09:46 Pulse Rate 82 09/20/19 09:46 Respiratory Rate 20 09/20/19 09:46 Blood Pressure 141/88 09/20/19 09:46 O2 Sat by Pulse Oximetry (%) 97 09/20/19 09:00 Constitutional: Yes: No Distress, Calm Neck: Yes: Supple Respiratory: Yes: Regular, Diminished Gastrointestinal: Yes: Soft, Hypoactive Bowel Sounds Cardiovascular: Yes: Regular Rate and Rhythm JVD: No Carotid Bruit: No Heart Sounds: Yes: S1, S2 Murmur: Yes: Systolic Murmur, Grade 1 Edema: Yes Edema: LLE: 1+, RLE: 1+ - Other Data Labs, Other Data: CBC, BMP 09/20/19 06:55 09/20/19 06:55 INR, PTT INR 1.01 (0.83-1.09) 09/13/19 14:40 Troponin, BNP 09/19/19 06:50 B-Natriuretic Peptide 5940.9 H Troponin, BNP 09/19/19 06:50 B-Natriuretic Peptide 5940.9 H NSR @ 92 LAE Ejection Fraction %: LVEF > or = 40 % Imaging - Results Chest X-ray: Report Reviewed (NAD) Problem List - Problems (1) Acute on chronic diastolic (congestive) heart failure Code(s): I50.33 - ACUTE ON CHRONIC DIASTOLIC (CONGESTIVE) HEART FAILURE (2) Pleural effusion Code(s): J90 - PLEURAL EFFUSION, NOT ELSEWHERE CLASSIFIED (3) Hydronephrosis Code(s): N13.30 - UNSPECIFIED HYDRONEPHROSIS Qualifiers: Hydronephrosis type: unspecified Qualified Code(s): N13.30 - Unspecified hydronephrosis (4) Anemia Code(s): D64.9 - ANEMIA, UNSPECIFIED (5) 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 (6) Spinal stenosis Code(s): M48.00 - SPINAL STENOSIS, SITE UNSPECIFIED Assessment/Plan 05/24/2018 Normal LV and RV size and fxn, mild MR, TR 09/10/[address]: Increased bilateral effusions, mod-severe bilateral hydro despite stent 1. Acute on chronic diastolic heart failure with R>L effusion 2. Acute on CKD with worsening hydronephrosis despite post stenting 3. leukopenia 4. breast cancer with mets and lytic lesions in femurs 5. HTN 6. hyperlipidemia 7. anemia 8. Sepsis 2/2 cellulitis and colitis 9. Compression fracture of the lumbar spine, L4 10. Lumbar spinal stenosis, pending neurosurgical evaluation Plan 1. F/u repeat echo to assess ventricular and valve fxn 2. Diuresis per renal, renal scan with lasix may help determining if she has a functional dilatation 3. Urology follow up as needed 4. Avoid nsaids, nephrotoxins, complete empiric abx course 5. BD, O2 as needed, transfuse to maintain Hgb>8 6. Thank you for consultative opportunity
--- NOTE | 2019-09-20 13:50 | PN ---
Progress Note (short form) - Note Progress Note: Seen in follow up. No events overnight. Comfortable, supine in bed. Reports discomfort R arm. Inpatient meds reviewed: Current Medications Acetaminophen (Tylenol -) 650 mg PO Q6H PRN PRN Reason: Fever Or Pain Last Admin: 09/19/19 18:33 Dose: 650 mg Heparin Sodium (Porcine) (Heparin -) 5,000 unit SQ TID [facility] Last Admin: 09/20/19 05:17 Dose: 5,000 unit Piperacillin Sod/Tazobactam (Sod 2.25 gm/ Dextrose) 50 mls @ 100 mls/hr IVPB Q8H-IV [facility]; Protocol Last Admin: 09/20/19 09:14 Dose: 100 mls/hr Vancomycin HCl (Vancomycin (Pre-Docked)) 1,000 mg in 250 mls @ 166.667 mls/hr IVPB Q24H [facility]; Protocol Last Admin: 09/19/19 17:44 Dose: 166.667 mls/hr Ondansetron HCl (Zofran -) 4 mg PO TID [facility] Last Admin: 09/20/19 05:17 Dose: 4 mg Pregabalin (Lyrica -) 75 mg PO BID [facility] Last Admin: 09/20/19 09:14 Dose: 75 mg Tramadol HCl (Ultram -) 50 mg PO Q6H PRN PRN Reason: PAIN LEVEL 4 - 6 Last Admin: 09/18/19 09:11 Dose: 50 mg On Examination: Last Vital Signs Temp Pulse Resp BP Pulse Ox 98.0 F 99 H 20 129/88 97 09/20/19 13:20 09/20/19 13:20 09/20/19 13:20 09/20/19 13:20 09/20/19 09:00 General: In no acute distress, supine in bed. No pallor or icterus. CVS: S1, S2, no gallop or murmur. Chest: breathing comfortably, clear. Abdomen: non-distended, non-tender Neuro: Alert, oriented to place, and to the president, not to time. Non-focal Extremities: Diffuse swelling R arm. Labs: CBC, BMP 09/20/19 06:55 09/20/19 06:55 Assessment. Breast CA, Stage IV - stable disease left ribs, sternum, sacrum and femurs. Pleural effusions - stable. History of hydronephrosis - s/p stents. Admitted with abdominal pain - possible colitis - on Abics as per IDS. Possible cellulitis R arm (chronic lymphedema) - vancomycin - as per ID. Rising BUN/creat noted - patient encouraged to increase oral fluid intake. Nephrology following.
[2019-09-20] MEDS: VANCOMYCIN 1 GRAM (PRE-DOCKED) 1,000 MG/250 ML BAG IVPB SCH (17:50)
[2019-09-21] MEDS ORDERED: PIPERACILLIN/TAZOBACTAM 2.25 GM VIAL IVPB ONE ×4 (01:28→23:29)
[2019-09-21] MEDS ORDERED: DEXTROSE 5%-WATER - 50 ML IVPB ONE ×4 (01:28→23:30)
[2019-09-21] MEDS: PIPERACILLIN/TAZOB 2.25 GM 2.25 GM in DEXTROSE 5%-WATER - 50 ML IVPB SCH ×3 (01:34→17:34)
[2019-09-21] MEDS: HEPARIN NA (PORCINE) 5,000 UNITS/ML 1ML VIAL SQ SCH ×3 (06:17→22:05)
[2019-09-21] MEDS: ONDANSETRON 4 MG TABLET PO SCH ×3 (06:17→22:05)
[2019-09-21 07:25] LABS: BASO % 0.4 % (0-2.0); EOS % 1.7 % (0-4.5); HEMATOCRIT 27.3 % (32.4-45.2); LYMPH % 6.3 % (8-40); MCH 32.6 pg (25.7-33.7); MEAN PLT VOLUME 7.7 fl (7.5-11.1); MONO % 6.7 % (3.8-10.2); NEUT % 84.9 % (42.8-82.8); PLATELET COUNT 244 K/MM3 (134-434); RBC 2.76 M/mm3 (3.60-5.2); RDW 16.9 % (11.6-15.6); WHITE BLOOD COUNT 14.2 K/mm3 (4.0-10.0)
[2019-09-21 07:42] LABS: PHOSPHOROUS 6.7 mg/dL (2.5-4.9)
[2019-09-21 07:55] LABS: ALBUMIN 2.7 g/dl (3.4-5.0); BILIRUBIN,TOTAL 0.4 mg/dL (0.2-1); BLOOD UREA NITROGEN 45.7 mg/dL (7-18); CALCIUM 8.9 mg/dL (8.5-10.1); CREATININE 3.3 mg/dL (0.55-1.3); MAGNESIUM 1.5 mg/dL (1.8-2.4); POTASSIUM 4.8 mmol/L (3.5-5.1); TOT PROT 5.6 g/dl (6.4-8.2)
[2019-09-21] MEDS ORDERED: traMADol HCL 50 MG TABLET PO PRN (08:58)
[2019-09-21] MEDS: PREGABALIN 75 MG CAPSULE PO SCH ×2 (09:28→22:05)
[2019-09-21 09:45] LABS: ANISOCYTOSIS 1+; MACROCYTOSIS 0; OVALOCYTE 1+; PLATELET ESTIMATE NORMAL
[2019-09-21] MEDS ORDERED: PT OWN MED DRAWER 7, Y5N ONE ×3 (11:49→21:16)
[2019-09-21] MEDS: CALCITONIN - SALMON SYNTHETIC 200 UNITS/SPRAY NS SCH (11:51)
--- NOTE | 2019-09-21 11:55 | PN ---
Physical Exam: SUBJECTIVE: Patient seen and examined. Pt is doing well. No overnight events or issues. Pt still c/o of right arm pain and back pain. Improved with pain meds. Afebrile and asymptomatic. Denies f/c/n/v/d/sob, chest pain OBJECTIVE: Vital Signs Period Temp Pulse Resp BP Sys/Avila Pulse Ox Last 24 Hr 98.0 F-98.8 F 92-106 20-20 129-150/68-91 94-96 GENERAL: AOx3, NAD HEAD: Normal with no signs of trauma. EYES: PERRL, extraocular movements intact, sclera anicteric, conjunctiva clear. No ptosis. ENT: oropharynx clear without exudates, moist mucous membranes. LUNGS: Breath sounds equal, clear to auscultation bilaterally, no wheezes, no crackles HEART: Regular rate and rhythm, S1, S2 without murmur, rub or gallop. ABDOMEN: Soft, nontender, nondistended, normoactive bowel sounds, no guarding, EXTREMITIES: RUE mild erythema and swelling, LUE normal, pulses intact b/l NEUROLOGICAL: Cranial nerves II through XII grossly intact. Normal speech, gait not observed. Laboratory Results - last 24 hr 09/20/19 09/21/19 09/21/19 15:20 06:40 06:40 WBC 14.2 H RBC 2.76 L Hgb 9.0 L Hct 27.3 L MCV 99.0 H MCH 32.6 MCHC 33.0 RDW 16.9 H Plt Count 244 MPV 7.7 Absolute Neuts (auto) 12.0 H Neutrophils % 84.9 H Neutrophils % (Manual) 77.0 Band Neutrophils % 10.0 Lymphocytes % 6.3 L Lymphocytes % (Manual) 0.0 L Monocytes % 6.7 Monocytes % (Manual) 9 Eosinophils % 1.7 Eosinophils % (Manual) 2.0 Basophils % 0.4 Basophils % (Manual) 0.0 Myelocytes % (Man) 0 Promyelocytes % (Man) 0 Blast Cells % (Manual) 0 Nucleated RBC % 0 Metamyelocytes 0 Hypochromia 0 Platelet Estimate Normal Polychromasia 0 Poikilocytosis 1+ Anisocytosis 1+ Microcytosis 1+ Macrocytosis 0 Spherocytes 1+ Ovalocytes 1+ Acanthocytes (Spur) 1+ ESR Sodium 136 Potassium 4.8 Chloride 102 Carbon Dioxide 25 Anion Gap 9 BUN 45.7 H Creatinine 3.3 H Est GFR (CKD-EPI)AfAm 15.28 Est GFR (CKD-EPI)NonAf 13.19 Random Glucose 92 Calcium 8.9 Phosphorus Magnesium 1.5 L Total Bilirubin 0.4 AST 41 H ALT 16 Alkaline Phosphatase 181 H C-Reactive Protein Total Protein 5.6 L Albumin 2.7 L Vancomycin Pre-Dose 12.0 L 09/21/19 09/21/19 06:40 06:40 WBC RBC Hgb Hct MCV MCH MCHC RDW Plt Count MPV Absolute Neuts (auto) Neutrophils % Neutrophils % (Manual) Band Neutrophils % Lymphocytes % Lymphocytes % (Manual) Monocytes % Monocytes % (Manual) Eosinophils % Eosinophils % (Manual) Basophils % Basophils % (Manual) Myelocytes % (Man) Promyelocytes % (Man) Blast Cells % (Manual) Nucleated RBC % Metamyelocytes Hypochromia Platelet Estimate Polychromasia Poikilocytosis Anisocytosis Microcytosis Macrocytosis Spherocytes Ovalocytes Acanthocytes (Spur) ESR 55 H Sodium Potassium Chloride Carbon Dioxide Anion Gap BUN Creatinine Est GFR (CKD-EPI)AfAm Est GFR (CKD-EPI)NonAf Random Glucose Calcium Phosphorus 6.7 H Magnesium Total Bilirubin AST ALT Alkaline Phosphatase C-Reactive Protein 4.7 H Total Protein Albumin Vancomycin Pre-Dose Active Medications Generic Name Dose Route Start Last Admin Trade Name Freq PRN Reason Stop Dose Admin Acetaminophen 650 mg 09/16/19 13:02 09/19/19 18:33 Tylenol - PO 650 mg Q6H PRN Administration Fever Or Pain 1-3 Calcitonin 1 spray 09/21/19 10:00 Miacalcin Nathalie - NS DAILY [facility] Heparin Sodium (Porcine) 5,000 unit 09/13/19 20:30 09/21/19 06:17 Heparin - SQ 5,000 unit TID [facility] Administration Piperacillin Sod/Tazobactam 50 mls @ 100 mls/hr 09/19/19 18:00 09/21/19 09:27 Sod 2.25 gm/ Dextrose IVPB 100 mls/hr Q8H-IV [facility] Administration Protocol Vancomycin HCl 1,000 mg in 250 mls @ 166.667 mls/hr 09/19/19 17:15 09/20/19 17:50 Vancomycin (Pre-Docked) IVPB 166.667 mls/hr Q24H [facility] Administration Protocol Ondansetron HCl 4 mg 09/13/19 22:00 09/21/19 06:17 Zofran - PO 4 mg TID [facility] Administration Pregabalin 150 mg 09/21/19 08:47 09/21/19 09:28 Lyrica - PO 150 mg BID [facility] Administration Tramadol HCl 100 mg 09/21/19 08:58 Ultram - PO Q6H PRN PAIN LEVEL 4 - 6 ASSESSMENT/PLAN: 73 y/o F, pmh of Breast cancer stage 3A w/ mets to the spine, peritoneal cavity , colon, spine, s/p right mastectomy, s/p radiation, b/l ureteral stents w/ b/l hydro, mild b/l pleural effusion, presents c/o of weakness of 1-2 weeks duration and abdominal cramping of 1 day duration #Abdominal cramping/Generalized spasm likely 2/2 to dehydration 2/2 Failure to thrive vs Navelbine adverse effect Zofran, Flexeril , IV tylenol , Tylenol 650 PRN Discussed with CM/SW- pt likely will not qualify for SNF, will go home with VNS Sacrum x rays ordered- pending read C-Spine, L-spine, femur MRIs-pending Waiting for neurosurgery consult- Dr. Acosta #Right forearm pain likely 2/2 to lymph edema vs Cellulitis Zosyn + Vanc EMG ordered Tramadol to 100 Q6H PRN #Leukocytosis WBC trending down FeNa-37 Serum osm- pending Urine osm-340, urine cre-88 UCx- neg Stool Cx and rectal swab #ALEKSANDER, elevated Cre b/l hydronephrosis s/p ureteral stents- worsening contacted Dr. Josue- called the service, sent out message to f/u Lasix renal scan #Anemia Transfuse if necessary #Breast cancer w/ mets (bone - spine, ribs, femoral shafts, sacrum, peritoneal cavity), s/p mastectomy Currently off Navelbine Pending C-spine read #DVTppx hep sq TID FEN IVF at 75 monitor lytes Regular diet Dispo: cont monitoring Cre, cont Abx, f/u w/ neuro Visit type - Emergency Visit Emergency Visit: Yes ED Registration Date: 09/17/19 Care time: The patient presented to the Emergency Department on the above date and was hospitalized for further evaluation of their emergent condition. - New Patient This patient is new to me today: Yes Date on this admission: 09/21/19 - Critical Care Critical Care patient: No - Discharge Referral Referred to [facility] Med P.C.: No ATTENDING PHYSICIAN STATEMENT I saw and evaluated the patient. I reviewed the resident's note and discussed the case with the resident. I agree with the resident's findings and plan as documented. SUBJECTIVE: OBJECTIVE: ASSESSMENT AND PLAN:
--- NOTE | 2019-09-21 12:09 | PN ---
Progress Note (short form) - Note Progress Note: PULMONARY VSS/AFEBRILE Constitutional: Yes: Anxious, Mild Distress, Pallor Eyes: Yes: EOM Intact HENT: Yes: Normocephalic Neck: Yes: Trachea Midline Cardiovascular: Yes: S1, S2 Respiratory: Yes: Diminished (AT BASES) Gastrointestinal: Yes: Normal Bowel Sounds, Soft Edema: LLE: 2+, RLE: 2+ Labs: NOTED Imaging reviewed - Results Chest X-ray: Report Reviewed, Image Reviewed Cat Scan: Report Reviewed, Image Reviewed Problem List - Problems (1) Pleural effusion Code(s): J90 - PLEURAL EFFUSION, NOT ELSEWHERE CLASSIFIED (2) Hypotension Code(s): I95.9 - HYPOTENSION, UNSPECIFIED Qualifiers: Hypotension type: other hypotension type Qualified Code(s): I95.89 - Other hypotension (3) Lymphedema Code(s): I89.0 - LYMPHEDEMA, NOT ELSEWHERE CLASSIFIED (4) Anemia Code(s): D64.9 - ANEMIA, UNSPECIFIED (5) 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 (6) Metastatic disease Code(s): C80.1 - MALIGNANT (PRIMARY) NEOPLASM, UNSPECIFIED Assessment/Plan SOB IS MULTIFACTORIAL ANEMIA/PLEURAL EFFUSIONS/LVDD/MALNUTRITION/FAILURE TO THRIVE DUE TO WIDELY METASTATIC BREAST CANCER WOULD SUPPORT WITH O2 NEEDED BRONCHODILATORS PRN/KEEP HGB GREATER THAN 8 GMS WILL FOLLOW Comfort MITCHELL MD Problem List - Problems (1) Pleural effusion Code(s): J90 - PLEURAL EFFUSION, NOT ELSEWHERE CLASSIFIED (2) Hypotension Code(s): I95.9 - HYPOTENSION, UNSPECIFIED Qualifiers: Hypotension type: other hypotension type Qualified Code(s): I95.89 - Other hypotension (3) Lymphedema Code(s): I89.0 - LYMPHEDEMA, NOT ELSEWHERE CLASSIFIED (4) Anemia Code(s): D64.9 - ANEMIA, UNSPECIFIED (5) 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 (6) Metastatic disease Code(s): C80.1 - MALIGNANT (PRIMARY) NEOPLASM, UNSPECIFIED
--- NOTE | 2019-09-21 12:39 | PN ---
Progress Note (short form) - Note Progress Note: abdominal pain resolved right arm less red, still some swelling Vital Signs Period Temp Pulse Resp BP Sys/Avila Pulse Ox Last 24 Hr 98.0 F-98.8 F 92-106 20-20 129-150/68-91 94-96 cor-rrr lungs clear abd soft,nt +ostomy ext minimal erythema of the RUE- still swollen per patient CBC, BMP 09/21/19 06:40 09/21/19 06:40 Microbiology 09/19/19 14:00 Rectal Swab Salmonella/Shigella Culture - Final NO GROWTH OF SALMONELLA OR SHIGELLA SPECIES OBTAINED 09/19/19 14:00 Rectal Swab Campylobacter Culture - Final NO GROWTH OF CAMPYLOBACTER SPECIES OBTAINED 09/19/19 14:00 Rectal Swab Yersinia Culture - Final NO GROWTH OF YERSINIA SPECIES OBTAINED 09/19/19 14:00 Rectal Swab Vibrio Culture - Final NO GROWTH OF VIBRIO SPECIES OBTAINED 09/19/19 14:00 Rectal Swab Escherichia coli 0157 Culture - Final NO GROWTH OF E COLI 0157 OBTAINED 09/19/19 14:00 Stool Clostridioides difficile Antigen - Final 09/19/19 14:00 Stool Clostridioides difficile Toxin Assay - Final 09/19/19 14:00 Colon Fluid Gram Stain - Final 09/18/19 11:30 Urine - Urine Clean Catch Urine Culture - Final NO GROWTH OBTAINED 09/13/19 14:45 Blood - Peripheral Venous Blood Culture - Final NO GROWTH AFTER 5 DAYS INCUBATION 09/13/19 14:45 Blood - Peripheral Venous Blood Culture - Final NO GROWTH AFTER 5 DAYS INCUBATION 09/13/19 14:50 Urine - Urine Clean Catch Urine Culture - Final NO GROWTH OBTAINED Current Medications Acetaminophen (Tylenol -) 650 mg PO Q6H PRN PRN Reason: Fever Or Pain 1-3 Last Admin: 09/19/19 18:33 Dose: 650 mg Calcitonin (Miacalcin [place] -) 1 spray NS DAILY [facility] Last Admin: 09/21/19 11:51 Dose: 1 spray Heparin Sodium (Porcine) (Heparin -) 5,000 unit SQ TID [facility] Last Admin: 09/21/19 06:17 Dose: 5,000 unit Piperacillin Sod/Tazobactam (Sod 2.25 gm/ Dextrose) 50 mls @ 100 mls/hr IVPB Q8H-IV [facility]; Protocol Last Admin: 09/21/19 09:27 Dose: 100 mls/hr Vancomycin HCl (Vancomycin (Pre-Docked)) 1,000 mg in 250 mls @ 166.667 mls/hr IVPB Q24H [facility]; Protocol Last Admin: 09/20/19 17:50 Dose: 166.667 mls/hr Ondansetron HCl (Zofran -) 4 mg PO TID [facility] Last Admin: 09/21/19 06:17 Dose: 4 mg Pregabalin (Lyrica -) 150 mg PO BID [facility] Last Admin: 09/21/19 09:28 Dose: 150 mg Tramadol HCl (Ultram -) 100 mg PO Q6H PRN PRN Reason: PAIN LEVEL 4 - 6 duplex dvt negative a/p colitis- f/u cultures, cdiff, continue zosyn, abd pain resolved right arm erythema resolving- check vancomycin trough before next dose- d/w RN, consider xray of RUE worsening renal failure- f/u with renal and urology metastatic breast cancer
--- NOTE | 2019-09-21 12:40 | PN ---
Progress Note, Physician History of Present Illness: Denies ALCOCER with walker assistance. - Current Medication List Current Medications: Active Medications Acetaminophen (Tylenol -) 650 mg PO Q6H PRN PRN Reason: Fever Or Pain 1-3 Last Admin: 09/19/19 18:33 Dose: 650 mg Calcitonin (Miacalcin [place] -) 1 spray NS DAILY [facility] Last Admin: 09/21/19 11:51 Dose: 1 spray Heparin Sodium (Porcine) (Heparin -) 5,000 unit SQ TID [facility] Last Admin: 09/21/19 06:17 Dose: 5,000 unit Piperacillin Sod/Tazobactam (Sod 2.25 gm/ Dextrose) 50 mls @ 100 mls/hr IVPB Q8H-IV [facility]; Protocol Last Admin: 09/21/19 09:27 Dose: 100 mls/hr Vancomycin HCl (Vancomycin (Pre-Docked)) 1,000 mg in 250 mls @ 166.667 mls/hr IVPB Q24H [facility]; Protocol Last Admin: 09/20/19 17:50 Dose: 166.667 mls/hr Ondansetron HCl (Zofran -) 4 mg PO TID [facility] Last Admin: 09/21/19 06:17 Dose: 4 mg Pregabalin (Lyrica -) 150 mg PO BID [facility] Last Admin: 09/21/19 09:28 Dose: 150 mg Tramadol HCl (Ultram -) 100 mg PO Q6H PRN PRN Reason: PAIN LEVEL 4 - 6 - Objective Vital Signs: Vital Signs Temperature 98.8 F 09/21/19 10:00 Pulse Rate 106 H 09/21/19 10:00 Respiratory Rate 20 09/21/19 10:00 Blood Pressure 145/91 09/21/19 10:00 O2 Sat by Pulse Oximetry (%) 94 L 09/21/19 09:00 Constitutional: Yes: No Distress, Calm Neck: Yes: Supple Cardiovascular: Yes: Regular Rate and Rhythm Respiratory: Yes: Regular, Diminished Gastrointestinal: Yes: Normal Bowel Sounds, Soft Edema: Yes Edema: LLE: Trace, RLE: Trace Labs: CBC, BMP 09/21/19 06:40 09/21/19 06:40 INR, PTT INR 1.01 (0.83-1.09) 09/13/19 14:40 Problem List - Problems (1) Acute on chronic diastolic (congestive) heart failure Code(s): I50.33 - ACUTE ON CHRONIC DIASTOLIC (CONGESTIVE) HEART FAILURE (2) Pleural effusion Code(s): J90 - PLEURAL EFFUSION, NOT ELSEWHERE CLASSIFIED (3) Hydronephrosis Code(s): N13.30 - UNSPECIFIED HYDRONEPHROSIS Qualifiers: Hydronephrosis type: unspecified Qualified Code(s): N13.30 - Unspecified hydronephrosis (4) Anemia Code(s): D64.9 - ANEMIA, UNSPECIFIED (5) 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 (6) Spinal stenosis Code(s): M48.00 - SPINAL STENOSIS, SITE UNSPECIFIED Assessment/Plan 05/24/2018 Normal LV and RV size and fxn, mild MR, TR 09/10/[address]: Increased bilateral effusions, mod-severe bilateral hydro despite stent 1. Acute on chronic diastolic heart failure with R>L effusion 2. Acute on CKD with worsening hydronephrosis despite post stenting 3. leukopenia 4. breast cancer with mets and lytic lesions in femurs 5. HTN 6. hyperlipidemia 7. anemia 8. Sepsis 2/2 cellulitis and colitis 9. Compression fracture of the lumbar spine, L4 10. Lumbar spinal stenosis, pending neurosurgical evaluation Plan 1. F/u repeat echo to assess ventricular and valve fxn 2. Diuresis held per renal, renal scan with lasix may help determining if she has a functional dilatation 3. Urology follow up as needed 4. Avoid nsaids, nephrotoxins, complete empiric abx course 5. BD, O2 as needed, transfuse to maintain Hgb>8
--- NOTE | 2019-09-21 13:12 | PN ---
Progress Note (short form) - Note Progress Note: RENAL Pt is awake and alert comfortable denies dyspnea Last Vital Signs Temp Pulse Resp BP Pulse Ox 98.8 F 106 H 20 145/91 94 L 09/21/19 10:00 09/21/19 10:00 09/21/19 10:00 09/21/19 10:00 09/21/19 09:00 lungs clear has a catheter on right chest right mastectomy scar cvs s1s2 abd soft, +ostomy bag ext +edema neuro awake and alert Current Medications Generic Name Dose Route Start Last Admin Trade Name Freq PRN Reason Stop Dose Admin Acetaminophen 650 mg 09/16/19 13:02 09/19/19 18:33 Tylenol - PO 650 mg Q6H PRN Administration Fever Or Pain 1-3 Calcitonin 1 spray 09/21/19 10:00 09/21/19 11:51 Miacalcin [place] - NS 1 spray DAILY [facility] Administration Heparin Sodium (Porcine) 5,000 unit 09/13/19 20:30 09/21/19 06:17 Heparin - SQ 5,000 unit TID [facility] Administration Piperacillin Sod/Tazobactam 50 mls @ 100 mls/hr 09/19/19 18:00 09/21/19 09:27 Sod 2.25 gm/ Dextrose IVPB 100 mls/hr Q8H-IV [facility] Administration Protocol Vancomycin HCl 1,000 mg in 250 mls @ 166.667 mls/hr 09/19/19 17:15 09/20/19 17:50 Vancomycin (Pre-Docked) IVPB 166.667 mls/hr Q24H [facility] Administration Protocol Ondansetron HCl 4 mg 09/13/19 22:00 09/21/19 06:17 Zofran - PO 4 mg TID [facility] Administration Pregabalin 150 mg 09/21/19 08:47 09/21/19 09:28 Lyrica - PO 150 mg BID [facility] Administration Tramadol HCl 100 mg 09/21/19 08:58 Ultram - PO Q6H PRN PAIN LEVEL 4 - 6 CBC, BMP 09/21/19 06:40 09/21/19 06:40 Impression 1. CKD 2. leukopenia 3. bilateral hydro despite stents 4. breast cancer with mets 5. HTN 6. hyperlipidemia 7. anemia 8. ALEKSANDER Plan - renal scan with lasix may help determining if she has a functional dilatation - repeat labs in am - urology follow up necessary - avoid nsaids -follow vanco troughs - may need perc nephrostomy MV
--- NOTE | 2019-09-21 14:29 | PN ---
Progress Note (short form) - Note Progress Note: Seen in follow up. No events overnight. Comfortable, supine in bed. Reports ongoing discomfort R arm. Inpatient meds reviewed: Current Medications Generic Name Dose Route Start Last Admin Trade Name Frebradley PRN Reason Stop Dose Admin Acetaminophen 650 mg 09/16/19 13:02 09/19/19 18:33 Tylenol - PO 650 mg Q6H PRN Administration Fever Or Pain 1-3 Calcitonin 1 spray 09/21/19 10:00 09/21/19 11:51 Miacalcin [place] - NS 1 spray DAILY [facility] Administration Heparin Sodium (Porcine) 5,000 unit 09/13/19 20:30 09/21/19 13:56 Heparin - SQ 5,000 unit TID [facility] Administration Piperacillin Sod/Tazobactam 50 mls @ 100 mls/hr 09/19/19 18:00 09/21/19 09:27 Sod 2.25 gm/ Dextrose IVPB 100 mls/hr Q8H-IV [facility] Administration Protocol Vancomycin HCl 1,000 mg in 250 mls @ 166.667 mls/hr 09/19/19 17:15 09/20/19 17:50 Vancomycin (Pre-Docked) IVPB 166.667 mls/hr Q24H [facility] Administration Protocol Ondansetron HCl 4 mg 09/13/19 22:00 09/21/19 13:56 Zofran - PO 4 mg TID [facility] Administration Pregabalin 150 mg 09/21/19 08:47 09/21/19 09:28 Lyrica - PO 150 mg BID [facility] Administration Tramadol HCl 100 mg 09/21/19 08:58 Ultram - PO Q6H PRN PAIN LEVEL 4 - 6 On Examination: Last Vital Signs Temp Pulse Resp BP Pulse Ox 98.8 F 106 H 20 145/91 94 L 09/21/19 10:00 09/21/19 10:00 09/21/19 10:00 09/21/19 10:09/21/19 09:00 General: In no acute distress, supine in bed. No pallor or icterus. CVS: S1, S2, no gallop or murmur. Chest: breathing comfortably, clear. Abdomen: non-distended, non-tender Neuro: Alert, oriented to place, and to the president, not to time. Non-focal Extremities: Diffuse swelling R arm. Labs: CBC, BMP 09/21/19 06:40 09/21/19 06:40 Assessment. Breast CA, Stage IV - stable disease left ribs, sternum, sacrum and femurs. Pleural effusions - stable. History of hydronephrosis - s/p stents. Admitted with abdominal pain - possible colitis - on Abics as per IDS. Possible cellulitis R arm (chronic lymphedema) - vancomycin - as per ID. Rising BUN/creat noted - appears pre-renal. Suggest IV fluid challenge, (as did urology). Nephrology following. Patient encouraged to increase oral fluid intake. Will continue to follow.
[2019-09-21] MEDS ORDERED: SODIUM CHLORIDE 0.9% 500 ML INFUS.BAG IV ONE (17:20)
--- NOTE | 2019-09-21 17:24 | PN ---
Teaching Attending Note Name of Resident: Toñito Quintana ATTENDING PHYSICIAN STATEMENT I saw and evaluated the patient. I reviewed the resident's note and discussed the case with the resident. I agree with the resident's findings and plan as documented. Seen and examined; please see resident note for further historical information. I personally verified all limon historical information and exam findings. Personally interpreted all imaging and diagnostics and reviewed appropriate consults. I reviewed all labs and vital signs as per resident note and EMR as documented. I agree with the above assessment and plan unless supplemented by myself in the following. Discussed case with nephrology, noted input from hematology and oncology. They note that urology recommended to them fluid challenge. Unable to verify but will attempt with a 500 cc bolus and recheck in the morning. She is making urine she has no current complaints aside from the ongoing neuropathic pain which we continue to titrate up her Lyrica. 10 item review of systems completed and is negative aside from as discussed in the subjective data in my own/the resident documentation. VS, labs, imaging reviewed NAD, AAO, resting comfortably in bed. RRR s1/2 no mgr Normal muscle tone, moves all 5 extremities with normal apparent strength Neck is supple, trachea midline, no errol LN Lungs CTAB with sym expansion NT ND +BS no errol organomegaly CN2-12 wnl; no FND NC AT EOMI PERRLA Normal mood, appropriate behavior, euthymic affect No skin breakdown or rashes noted Pending MRI C-spine read ASSESSMENT AND PLAN: Patient presented to the emergency room for weakness/body tremors and is found to have worsening renal failure with worsening hydronephrosis despite stenting, pending reevaluation from urology. Nephrology continues to follow, recommended Lasix renal scan with nuclear medicine which I have ordered and continual avoidance of nephrotoxins and monitoring renal function daily. They were found to have cellulitis of the right upper extremity in the area they have lymphedema which complicates wound healing, as well as colitis. We have him on broad-spectrum antibiotics as per ID with empiric vancomycin and Zosyn have been dose adjusted for her azotemia, and furthermore we will continue to monitor white count and CRP. Due to progressive lumbar spine changes seen on the CT of the abdomen and pelvis incidentally, I further pursued this with lumbar and cervical MRIs which are pending. The lumbar study as discussed above , and they are pending consultation with Dr. Valdez for the compression fx, stenosis, etc. They no not have any progressive myelopathic symptoms. Pending evaluation from interventional radiology due to the right greater than left pleural effusion that may require thoracentesis. Problems include: -Worsening renal failure, status post stenting with worsening hydronephrosis. -Sepsis secondary to cellulitis, colitis -Metastatic breast cancer -Compression fracture of the lumbar spine, L4 -Lumbar spinal stenosis, pending neurosurgical evaluation -Ongoing anemia of chronic disease, transfusion threshold for hemoglobin of 8 -Severe hydronephrosis status post stenting -Bilateral pleural effusions, right greater than left. Follow-up with interventional radiology consult to see if thoracentesis would be indicated. BNP is elevated which is secondary to either primary process but likely is shrouded by the renal retention. Echocardiogram has been ordered and is pending. Follow-up with cardiology consultation, low threshold to upgrade patient to telemetry if needed. -Multiple lytic lesions, MRI of the lumbar spine noted. C-spine has been completed. Imaging of the femurs is noted as well. -Leukopenia, secondary to global oncologic processes -History of hypertension -History of hyperlipidemia -Severe hypoalbuminemia secondary to cancer, protein calorie malnutrition. -Hyperphosphatemia secondary to renal failure, nephrology following. Continuing to monitor -Transaminitis with elevated alkaline phosphatase, up to 151 from 141 with AST persistently elevated. Trend CMP -Leukocytosis secondary to acute sepsis, improved, continue to monitor. -Chronic lymphedema of the left arm secondary to breast cancer in the surrounding issues, complicates the cellulitis -Overweight, BMI 25 Full Code
[2019-09-21] MEDS: VANCOMYCIN 1 GRAM (PRE-DOCKED) 1,000 MG/250 ML BAG IVPB SCH (17:25)
[2019-09-22] MEDS: PIPERACILLIN/TAZOB 2.25 GM 2.25 GM in DEXTROSE 5%-WATER - 50 ML IVPB SCH ×3 (02:30→17:03)
[2019-09-22] MEDS: HEPARIN NA (PORCINE) 5,000 UNITS/ML 1ML VIAL SQ SCH ×3 (05:53→22:33)
[2019-09-22] MEDS: ONDANSETRON 4 MG TABLET PO SCH ×3 (05:53→22:37)
[2019-09-22 08:03] LABS: BASO % 0.5 % (0-2.0); EOS % 1.7 % (0-4.5); HEMATOCRIT 28.5 % (32.4-45.2); HEMOGLOBIN 9.5 GM/dL (10.7-15.3); LYMPH % 5.6 % (8-40); MCH 32.7 pg (25.7-33.7); MCHC 33.3 g/dl (32.0-36.0); MEAN CELL VOLUME 98.3 fl (80-96); MEAN PLT VOLUME 7.5 fl (7.5-11.1); MONO % 6.4 % (3.8-10.2); NEUT % 85.8 % (42.8-82.8); PLATELET COUNT 246 K/MM3 (134-434); RDW 17.2 % (11.6-15.6); WHITE BLOOD COUNT 13.1 K/mm3 (4.0-10.0)
[2019-09-22 08:36] LABS: ALBUMIN 2.8 g/dl (3.4-5.0); BILIRUBIN,TOTAL 0.5 mg/dL (0.2-1); BLOOD UREA NITROGEN 52.4 mg/dL (7-18); CALCIUM 9.6 mg/dL (8.5-10.1); CREATININE 3.5 mg/dL (0.55-1.3); MAGNESIUM 1.8 mg/dL (1.8-2.4); PHOSPHOROUS 6.5 mg/dL (2.5-4.9); TOT PROT 5.9 g/dl (6.4-8.2)
[2019-09-22] MEDS ORDERED: DEXTROSE 5%-WATER - 50 ML IVPB ONE ×2 (09:31→16:49)
[2019-09-22] MEDS ORDERED: PIPERACILLIN/TAZOBACTAM 2.25 GM VIAL IVPB ONE ×3 (09:31→16:49)
[2019-09-22] MEDS: PREGABALIN 75 MG CAPSULE PO SCH ×2 (09:32→22:33)
[2019-09-22] MEDS: CALCITONIN - SALMON SYNTHETIC 200 UNITS/SPRAY NS SCH (09:36)
--- NOTE | 2019-09-22 10:30 | PN ---
Progress Note, Physician History of Present Illness: 73 y/o F, pmh of Breast cancer stage 3A w/ mets to the spine, peritoneal cavity , colon, spine currently off chem with Navelbine, s/p right mastectomy, s/p radiation, b/l ureteral stents w/ b/l hydro, mild b/l pleural effusion, initially presented c/o of weakness of 1-2 weeks duration and abdominal cramping of 1 day duration. She reports that 2 weeks ago she came off chemo under Dr. Edward's supervision and had a CAT scan completed showing R>L effusion. She also reports that she has never needed a walker but began to use one since her weakness started. She has been on and off chemo for 2 years now. She reports ALCOCER walking fast and bilateral LE edema, but denies LOC, dizziness, head trauma, palpitations, vertigo, tinnitis, chest pain, shortness of breath, orthopnea, PND. - Current Medication List Current Medications: Active Medications Acetaminophen (Tylenol -) 650 mg PO Q6H PRN PRN Reason: Fever Or Pain 1-3 Last Admin: 09/19/19 18:33 Dose: 650 mg Calcitonin (Miacalcin [place] -) 1 spray NS DAILY [facility] Last Admin: 09/22/19 09:36 Dose: 1 spray Heparin Sodium (Porcine) (Heparin -) 5,000 unit SQ TID [facility] Last Admin: 09/22/19 05:53 Dose: 5,000 unit Piperacillin Sod/Tazobactam (Sod 2.25 gm/ Dextrose) 50 mls @ 100 mls/hr IVPB Q8H-IV [facility]; Protocol Last Admin: 09/22/19 02:30 Dose: 100 mls/hr Ondansetron HCl (Zofran -) 4 mg PO TID [facility] Last Admin: 09/22/19 05:53 Dose: 4 mg Pregabalin (Lyrica -) 150 mg PO BID [facility] Last Admin: 09/22/19 09:32 Dose: 150 mg Tramadol HCl (Ultram -) 100 mg PO Q6H PRN PRN Reason: PAIN LEVEL 4 - 6 - Objective Vital Signs: Vital Signs Temperature 97.7 F 09/22/19 08:33 Pulse Rate 85 09/22/19 08:33 Respiratory Rate 18 09/22/19 08:33 Blood Pressure 145/90 09/22/19 08:33 O2 Sat by Pulse Oximetry (%) 94 L 09/21/19 21:00 Eyes: Yes: WNL, Conjunctiva Clear, EOM Intact HENT: Yes: WNL, Atraumatic, Normocephalic Neck: Yes: WNL, Supple, Trachea Midline Cardiovascular: Yes: WNL, Regular Rate and Rhythm Respiratory: Yes: Diminished, Dullness Gastrointestinal: Yes: WNL, Normal Bowel Sounds Genitourinary: Yes: WNL Musculoskeletal: Yes: WNL Extremities: Yes: WNL Edema: No Integumentary: Yes: WNL Neurological: Yes: WNL, Alert, Oriented ...Motor Strength: WNL Psychiatric: Yes: WNL Labs: CBC, BMP 09/22/19 07:34 09/22/19 07:34 INR, PTT INR 1.01 (0.83-1.09) 09/13/19 14:40 Assessment/Plan - Problems (1) Acute on chronic diastolic (congestive) heart failure Code(s): I50.33 - ACUTE ON CHRONIC DIASTOLIC (CONGESTIVE) HEART FAILURE (2) Pleural effusion Code(s): J90 - PLEURAL EFFUSION, NOT ELSEWHERE CLASSIFIED (3) Hydronephrosis Code(s): N13.30 - UNSPECIFIED HYDRONEPHROSIS Qualifiers: Hydronephrosis type: unspecified Qualified Code(s): N13.30 - Unspecified hydronephrosis (4) Anemia Code(s): D64.9 - ANEMIA, UNSPECIFIED (5) 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 (6) Spinal stenosis Code(s): M48.00 - SPINAL STENOSIS, SITE UNSPECIFIED Assessment/Plan 05/24/2018 Normal LV and RV size and fxn, mild MR, TR 09/10/[address]: Increased bilateral effusions, mod-severe bilateral hydro despite stent 1. Acute on chronic diastolic heart failure with R>L effusion 2. Acute on CKD with worsening hydronephrosis despite post stenting 3. leukopenia 4. breast cancer with mets and lytic lesions in femurs 5. HTN 6. hyperlipidemia 7. anemia 8. Sepsis 2/2 cellulitis and colitis 9. Compression fracture of the lumbar spine, L4 10. Lumbar spinal stenosis, pending neurosurgical evaluation Plan 1. F/u repeat echo to assess ventricular and valve fxn 2. Diuresis held per renal, renal scan with lasix may help determining if she has a functional dilatation 3. Urology follow up as needed 4. Avoid nsaids, nephrotoxins, complete empiric abx course 5. BD, O2 as needed, transfuse to maintain Hgb>8
--- NOTE | 2019-09-22 12:02 | CONS ---
PHYSICAL MEDICINE REHABILITATION AND ELECTRODIAGNOSTIC CONSULTATION DATE OF CONSULTATION: 09/22/2019 REFERRING PHYSICIAN: Toñito Quintnaa M.D. HISTORY OF PRESENT ILLNESS: The patient is a 73-year-old woman with past medical history of metastatic breast cancer with metastases to the spine, peritoneal cavity who is status post right mastectomy, radiation, chemotherapy but currently not receiving any chemotherapy who was admitted on or about September 13, 2019, with complaints of weakness and abdominal cramping. Patient states that she is feeling improvement in regards to this but a little bit more than a week ago started to develop right upper extremity pain and increased swelling. She underwent imaging including an ultrasound of the upper extremity, which showed no evidence of deep venous thrombosis. She has some baseline swelling in her right upper extremity , but she noted this has worsened. She also has tingling in her lower extremities with some loss of balance but no change in numbness, tingling. She has undergone multiple MRIs including MRIs of the cervical and lumbar spine, which showed multiple metastatic deposits. There was a notable large deposit in the left lateral aspect of C2. Electrodiagnostic studies were ordered of the upper extremity because of the pain. Again, patient's the pain is from her wrist up to the elbow worse with movement at the elbow and also some slight discomfort at times with movement in her wrist, difficulty pronating and supinating. Most recent blood work on September 22, her WBCs were elevated at 13.1, but they have improved. They had been over 21, 000 on September 19. Her hemoglobin is [id number] at 9.5 and platelet count normal 246. Chemistry shows elevated BUN of 52 and elevated creatinine of 3.5, which is trending higher. Her albumin is low at 2.8. She had a normal TSH of 3.02 on September 16, and her B12 level is normal 591. Her folate was elevated at 29 both taken on September 14, 2019. Patient states she is able to ambulate with and without a Rollator. She was seen by physical therapy last on September 20 and ambulated 200 feet with a Rollator at a contact guard level, transfer [id number] with minimal assist. PAST MEDICAL HISTORY: As above. Metastatic breast cancer with metastasis to the spine as well as the peritoneal cavity as noted above. She has a history of ureteral stents due to hydronephrosis, pleural effusion. PAST SURGICAL HISTORY: As above. She is status post right colectomy and small- bowel resection for metastatic breast carcinoma to the peritoneal cavity. SOCIAL HISTORY: Per the patient, lives in a condo. Premorbidly independent. Current function as above. REVIEW OF SYSTEMS: No headache, no lightheadedness or dizziness. No blurry vision, double vision. No nausea, vomiting, difficulty swallowing, difficulty chewing. No chest pain. She gets short of breath with exertion but no shortness of breath at rest. Again, swelling, which is increased in her right upper extremity but was present previously as well as some swelling in the lower extremities. Baseline tingling and loss of balance. Some weakness involving the right upper extremity most likely due to her level of pain but no other joint arthralgias currently. No complaints of neck or back pain. PHYSICAL EXAMINATION: General: Patient is an elderly woman seen lying in bed. With assistance, she is able to go from a supine to a sitting position with her legs dangling at the end of the bed. HEENT: She is normocephalic and atraumatic. Her extraocular muscles appear full. She has no obvious tenderness or limitations in range. Extremities: She has limited use of the right upper extremity due to pain. Patient has normal sensation to light touch, pinprick throughout her upper extremities. Full range and strength in the left upper limb and good strength and range in the lower extremities distally including dorsiflexion, plantar flexion but limited hip girdle strength due to weakness. Knee extensors are at least 3+/5. She has slightly diminished cold temperature but normal vibratory sense distally in the lower limbs. Unable to stand or ambulate her at this time. Results of EMG, nerve conduction studies, please refer to report for details. OVERALL IMPRESSION: 1. 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 2. No electrodiagnostic evidence of carpal tunnel syndrome, median neuropathy, ulnar neuropathy, radial neuropathy, brachial plexopathy, or cervical radiculopathy. 3. Given the fact that her symptoms started a week or so ago, it may be too early to demonstrate cervical radiculopathy. 4. Gait disorder. 5. Deconditioning. 6. Metastatic breast cancer with metastases to the cervical, lumbar spine status post right mastectomy, radiation, chemotherapy. 7. Anemia. 8. Leukocytosis, improving. 9. Acute versus chronic kidney injury, which appears to be worsening on blood work. 10. Elevated risk for deep venous thrombosis due to immobility. PLAN/SUGGESTION: 1. Consider imaging of the right upper extremity including x-rays and/or CAT scan to look for any lytic lesion. 2. Sling for right upper extremity support is recommended. 3. Continue physical therapy. 4. Out of bed to chair. 5. Continue Lyrica. 6. Continue subcutaneous heparin. 7. Medical follow up regarding increasing BUN and creatinine. 8. Consider short-term rehabilitation in a [facility] facility. 9. Would consider repeating EMG if pain progresses and no etiology is found to rule out cervical radiculopathy. Thank you for this referral. KATHY MERIDA M.D. [id number] MTDD
--- NOTE | 2019-09-22 12:15 | PN ---
Progress Note (short form) - Note Progress Note: PULMONARY Denies shortness of breath or chest pain but reports occasional wheezing. Vital Signs Period Temp Pulse Resp BP Sys/Avila Pulse Ox Last 24 Hr 97.4 F-98.1 F 85-98 18-20 139-151/71-90 94-97 Gen: NAD at rest Heart: RRR Lung: decreased breath sounds at the bases Abd: soft, nontender Ext: no edema CBC, BMP 09/22/19 07:34 09/22/19 07:34 Active Medications Acetaminophen (Tylenol -) 650 mg PO Q6H PRN PRN Reason: Fever Or Pain 1-3 Last Admin: 09/19/19 18:33 Dose: 650 mg Calcitonin (Miacalcin [place] -) 1 spray NS DAILY [facility] Last Admin: 09/22/19 09:36 Dose: 1 spray Heparin Sodium (Porcine) (Heparin -) 5,000 unit SQ TID [facility] Last Admin: 09/22/19 05:53 Dose: 5,000 unit Piperacillin Sod/Tazobactam (Sod 2.25 gm/ Dextrose) 50 mls @ 100 mls/hr IVPB Q8H-IV [facility]; Protocol Last Admin: 09/22/19 12:06 Dose: 100 mls/hr Ondansetron HCl (Zofran -) 4 mg PO TID [facility] Last Admin: 09/22/19 05:53 Dose: 4 mg Pregabalin (Lyrica -) 150 mg PO BID [facility] Last Admin: 09/22/19 09:32 Dose: 150 mg Tramadol HCl (Ultram -) 100 mg PO Q6H PRN PRN Reason: PAIN LEVEL 4 - 6 A/P Acute on Chronic Diastolic Heart Failure Acute o Chronic Renal Faiulre Bilateral Hydronephrosis Cellulitis Sepsis Metastatic Breast Ca HTN Hyperlipidemia Anemia - continue antibiotics - urology f/u - holding lasix - O2 as needed - inhaled bronchodilators - DVT prophylaxis
--- NOTE | 2019-09-22 13:22 | PN ---
Teaching Attending Note Name of Resident: Toñito Quintana ATTENDING PHYSICIAN STATEMENT I saw and evaluated the patient. I reviewed the resident's note and discussed the case with the resident. I agree with the resident's findings and plan as documented. Seen and examined; please see resident note for further historical information. I personally verified all limon historical information and exam findings. Personally interpreted all imaging and diagnostics and reviewed appropriate consults. I reviewed all labs and vital signs as per resident note and EMR as documented. I agree with the above assessment and plan unless supplemented by myself in the following. No events reported to me overnight. Patient remains hemodynamically stable and afebrile. Labs reveal creatinine increased from 3.3-3.5. Pending further studies as ordered. 10 item review of systems completed and is negative aside from as discussed in the subjective data in my own/the resident documentation. VS, labs, imaging reviewed NAD, AAO, resting comfortably in bed. RRR s1/2 no mgr Normal muscle tone, moves all 5 extremities with normal apparent strength Neck is supple, trachea midline, no errol LN Lungs CTAB with sym expansion NT ND +BS no errol organomegaly CN2-12 wnl; no FND NC AT EOMI PERRLA Normal mood, appropriate behavior, euthymic affect No skin breakdown or rashes noted Assessment and plan: Patient presented to the emergency room for weakness/body tremors and is found to have worsening renal failure with worsening hydronephrosis despite stenting, pending reevaluation from urology. Nephrology continues to follow, recommended Lasix renal scan with nuclear medicine which I have ordered and continual avoidance of nephrotoxins and monitoring renal function daily. They were found to have cellulitis of the right upper extremity in the area they have lymphedema which complicates wound healing, as well as colitis. We have him on broad-spectrum antibiotics as per ID with empiric vancomycin and Zosyn have been dose adjusted for her azotemia, and furthermore we will continue to monitor white count and CRP. Due to progressive lumbar spine changes seen on the CT of the abdomen and pelvis incidentally, I further pursued this with lumbar and cervical MRIs which are pending. The lumbar study as discussed above , and they are pending consultation with Dr. Valdez for the compression fx, stenosis, etc. They no not have any progressive myelopathic symptoms. Pending evaluation from interventional radiology due to the right greater than left pleural effusion that may require thoracentesis. Problems include: -Worsening renal failure, status post stenting with worsening hydronephrosis. -Sepsis secondary to cellulitis, colitis -Metastatic breast cancer -Compression fracture of the lumbar spine, L4. UE pain neuropathic; considered EMG -Lumbar spinal stenosis, pending neurosurgical evaluation -Ongoing anemia of chronic disease, transfusion threshold for hemoglobin of 8 -Severe hydronephrosis status post stenting -Bilateral pleural effusions, right greater than left. Follow-up with interventional radiology consult to see if thoracentesis would be indicated. BNP is elevated which is secondary to either primary process but likely is shrouded by the renal retention. -Multiple lytic lesions, MRI of the lumbar spine noted. C-spine has been completed. Imaging of the femurs is noted as well. -Leukopenia, secondary to global oncologic processes -History of hypertension -History of hyperlipidemia -Severe hypoalbuminemia secondary to cancer, protein calorie malnutrition. -Hyperphosphatemia secondary to renal failure, nephrology following. Continuing to monitor -Transaminitis with elevated alkaline phosphatase, up to 151 from 141 with AST persistently elevated. Trend CMP -Leukocytosis secondary to acute sepsis, improved, continue to monitor. -Chronic lymphedema of the left arm secondary to breast cancer in the surrounding issues, complicates the cellulitis -Overweight, BMI 25 Full Code
--- NOTE | 2019-09-22 13:43 | ECHO ---
Name: NAPOLEON LIEBERMAN Exam:Adult Echocardiogram Study Date: 09/22/2019 10:26 AM Age: 73 yrs Reason For Study: CHF Height: 65 in Weight: 154 lb BSA: 1.8 m2 MMode/2D Measurements & Calculations IVSd: 1.2 cm Ao root diam: 3.4 cm LVIDd: 4.7 cm LA dimension: 2.4 cm LVIDs: 3.6 cm LVPWd: 1.5 cm LVPWs: 1.6 cm EDV(Teich): 101.6 ml ESV(Teich): 55.3 ml LVOT diam: 2.0 cm LAV (MOD-bp): 71.0 ml TAPSE: 2.1 cm RV S Donn: 23.1 cm/sec Doppler Measurements & Calculations Ao V2 max: 176.8 cm/sec LV V1 max P.1 mmHg Ao max P.6 mmHg LV V1 max: 88.5 cm/sec JANNETTE(V,D): 1.6 cm2 TR max donn: 252.5 cm/sec PA V2 max: 118.1 cm/sec TR max P.5 mmHg PA max P.6 mmHg Med Peak E' Donn: 3.9 cm/sec Lat Peak E' Donn: 14.1 cm/sec Left Ventricle The left ventricle is normal in size. There is mild concentric left ventricular hypertrophy. Ejection Fraction = 20%. Left ventricular systolic function is severely reduced. Diastolic dysfunction, Grade III (rest rictive pattern), consistent with markedly increased left atrial pressure. There is severe global hypokinesis of the left ventricle. Right Ventricle The right ventricle is grossly normal size. The right ventricular systolic function is normal. Atria The left atrium is mildly dilated. Right atrial size is normal. Mitral Valve The mitral valve is grossly normal. Tricuspid Valve The tricuspid valve is not well visualized, but is grossly normal. There is mild tricuspid regurgitat ion. Right ventricular systolic pressure is 36 mmhg. Aortic Valve Calcified aortic valve with minimal-mild stenosis. Great Vessels The aortic root is normal size. Pericardium/Pleura Small pericardial effusion (<1cm). There is a pleural effusion present. Interpretation Summary LV: Normal size, mild LVH; severe global hypokinesia with severelt decreased systolic function : EF 2 0%; ,elevated filling pressure RV: Normal LA: mildy dilated Mildly calcified aortic valve with minimal-mild stenosis Mild mitral annular calcification Mild TR with normal calculated RVSP Small pericardial effusion Pleural effusion. Delio Isaac 09/22/2019 01:42 PM
[2019-09-22] MEDS: ALBUTEROL SO4 2.5/IPRATROPIUM 0.5 INH SOL 3 ML VIAL.NEB. NEB SCH ×2 (14:24→19:56)
[2019-09-22] MEDS ORDERED: PT OWN MED DRAWER 7, Y5N ONE ×2 (14:43→22:35)
[2019-09-22] MEDS ORDERED: metoPROLOL SUCCINATE 25 MG TAB.SR.24H (FP) PO SCH (14:45)
[2019-09-22 15:23] LABS: RETICULOCYTES 1.39 % (0.5-1.5)
--- NOTE | 2019-09-22 15:46 | PN ---
Progress Note, Physician History of Present Illness: Pt seen and examined at bedside. She is awake and alert. She denies shortness of breath. - Current Medication List Current Medications: Active Medications Acetaminophen (Tylenol -) 650 mg PO Q6H PRN PRN Reason: Fever Or Pain 1-3 Last Admin: 09/19/19 18:33 Dose: 650 mg Albuterol/Ipratropium (Duoneb -) 1 amp NEB RTID [facility] Last Admin: 09/22/19 14:24 Dose: Not Given Calcitonin (Miacalcin [place] -) 1 spray NS DAILY [facility] Last Admin: 09/22/19 09:36 Dose: 1 spray Carvedilol (Coreg -) 3.125 mg PO BID [facility] Heparin Sodium (Porcine) (Heparin -) 5,000 unit SQ TID [facility] Last Admin: 09/22/19 14:55 Dose: 5,000 unit Piperacillin Sod/Tazobactam (Sod 2.25 gm/ Dextrose) 50 mls @ 100 mls/hr IVPB Q8H-IV [facility]; Protocol Last Admin: 09/22/19 12:06 Dose: 100 mls/hr Metoprolol Succinate (Toprol Xl -) 25 mg PO DAILY [facility] Ondansetron HCl (Zofran -) 4 mg PO TID [facility] Last Admin: 09/22/19 14:55 Dose: 4 mg Pregabalin (Lyrica -) 150 mg PO BID [facility] Last Admin: 09/22/19 09:32 Dose: 150 mg Tramadol HCl (Ultram -) 100 mg PO Q6H PRN PRN Reason: PAIN LEVEL 4 - 6 Last Admin: 09/22/19 15:10 Dose: 100 mg - Objective Vital Signs: Vital Signs Temperature 98.1 F 09/22/19 14:43 Pulse Rate 99 H 09/22/19 14:43 Respiratory Rate 09/22/19 14:43 Blood Pressure 152/92 09/22/19 14:43 O2 Sat by Pulse Oximetry (%) 97 09/22/19 09:00 Constitutional: Yes: Calm Eyes: Yes: Conjunctiva Clear HENT: Yes: Atraumatic Neck: Yes: Supple Cardiovascular: Yes: S1, S2 Respiratory: Yes: CTA Bilaterally Genitourinary: Yes: WNL Edema: Yes Edema: RUE: 1+, LLE: 1+, RLE: 1+ Neurological: Yes: Oriented Psychiatric: Yes: Oriented Labs: CBC, BMP 09/22/19 07:34 09/22/19 07:34 INR, PTT INR 1.01 (0.83-1.09) 09/13/19 14:40 Assessment/Plan Current Medications Generic Name Dose Route Start Last Admin Trade Name Freq PRN Reason Stop Dose Admin Acetaminophen 650 mg 09/16/19 13:02 09/19/19 18:33 Tylenol - PO 650 mg Q6H PRN Administration Fever Or Pain 1-3 Albuterol/Ipratropium 1 amp 09/22/19 14:00 09/22/19 14:24 Duoneb - NEB Not Given RTID [facility] Calcitonin 1 spray 09/21/19 10:00 09/22/19 09:36 Miacalcin [place] - NS 1 spray DAILY [facility] Administration Carvedilol 3.125 mg 09/22/19 22:00 Coreg - PO BID [facility] Heparin Sodium (Porcine) 5,000 unit 09/13/19 20:30 09/22/19 14:55 Heparin - SQ 5,000 unit TID [facility] Administration Piperacillin Sod/Tazobactam 50 mls @ 100 mls/hr 09/19/19 18:00 09/22/19 12:06 Sod 2.25 gm/ Dextrose IVPB 100 mls/hr Q8H-IV [facility] Administration Protocol Metoprolol Succinate 25 mg 09/22/19 14:45 Toprol Xl - PO DAILY [facility] Ondansetron HCl 4 mg 09/13/19 22:00 09/22/19 14:55 Zofran - PO 4 mg TID [facility] Administration Pregabalin 150 mg 09/21/19 08:47 09/22/19 09:32 Lyrica - PO 150 mg BID [facility] Administration Tramadol HCl 100 mg 09/21/19 08:58 09/22/19 15:10 Ultram - PO 100 mg Q6H PRN Administration PAIN LEVEL 4 - 6 Impression 1. CKD 2. leukopenia 3. obstructive uropathy with bilateral hydro 4. breast cancer with mets 5. HTN 6. hyperlipidemia 7. anemia 8. ALEKSANDER 9. CHF Plan - lasix on hold for now - follow lasix wash out scan - urology follow up - if no obstruction on scan, start lasix - discussed with cardio - avoid nsaids Dr Land
--- NOTE | 2019-09-22 16:36 | PN ---
Physical Exam: SUBJECTIVE: Patient seen and examined Pt is doing well. No overnight events or issues. Pt still c/o of right arm pain and back pain. Improved with pain meds. Afebrile and asymptomatic. Denies f/c/n/ v/d/sob, chest pain OBJECTIVE: Vital Signs Period Temp Pulse Resp BP Sys/Avila Pulse Ox Last 24 Hr 97.4 F-98.1 F 85-99 18-20 139-152/71-92 94-97 GENERAL: AOx3, NAD HEAD: Normal with no signs of trauma. EYES: PERRL, extraocular movements intact, sclera anicteric, conjunctiva clear. No ptosis. ENT: oropharynx clear without exudates, moist mucous membranes. LUNGS: Breath sounds equal, clear to auscultation bilaterally, no wheezes, no crackles HEART: Regular rate and rhythm, S1, S2 without murmur, rub or gallop. ABDOMEN: Soft, nontender, nondistended, normoactive bowel sounds, no guarding, EXTREMITIES: RUE mild erythema and swelling, LUE normal, pulses intact b/l NEUROLOGICAL: Cranial nerves II through XII grossly intact. Normal speech, gait not observed. Laboratory Results - last 24 hr CBC,CMP WBC 13.1 K/mm3 (4.0-10.0) H 09/22/19 07:34 RBC 2.90 M/mm3 (3.60-5.2) L 09/22/19 07:34 Hgb 9.5 GM/dL (10.7-15.3) L 09/22/19 07:34 Hct 28.5 % (32.4-45.2) L 09/22/19 07:34 MCV 98.3 fl (80-96) H 09/22/19 07:34 MCH 32.7 pg (25.7-33.7) 09/22/19 07:34 MCHC 33.3 g/dl (32.0-36.0) 09/22/19 07:34 RDW 17.2 % (11.6-15.6) H 09/22/19 07:34 Plt Count 246 K/MM3 (134-434) 09/22/19 07:34 MPV 7.5 fl (7.5-11.1) 09/22/19 07:34 Absolute Neuts (auto) 11.2 K/mm3 (1.5-8.0) H 09/22/19 07:34 Neutrophils % 85.8 % (42.8-82.8) H 09/22/19 07:34 Neutrophils % (Manual) 77.0 % (42.8-82.8) 09/21/19 06:40 Band Neutrophils % 10.0 % 09/21/19 06:40 Lymphocytes % 5.6 % (8-40) L 09/22/19 07:34 Lymphocytes % (Manual) 0.0 % (8-40) L 09/21/19 06:40 Monocytes % 6.4 % (3.8-10.2) 09/22/19 07:34 Monocytes % (Manual) 9 % (3.8-10.2) 09/21/19 06:40 Eosinophils % 1.7 % (0-4.5) 09/22/19 07:34 Eosinophils % (Manual) 2.0 % (0-4.5) 09/21/19 06:40 Basophils % 0.5 % (0-2.0) 09/22/19 07:34 Basophils % (Manual) 0.0 % (0-2.0) 09/21/19 06:40 Myelocytes % (Man) 0 % (0-2) 09/21/19 06:40 Promyelocytes % (Man) 0 % (0-2) 09/21/19 06:40 Blast Cells % (Manual) 0 % (0-0) 09/21/19 06:40 Nucleated RBC % 0 % (0-0) 09/22/19 07:34 Metamyelocytes 0 % (0-2) 09/21/19 06:40 Hypochromia 0 09/21/19 06:40 Platelet Estimate Normal 09/21/19 06:40 Polychromasia 0 09/21/19 06:40 Poikilocytosis 1+ 09/21/19 06:40 Anisocytosis 1+ 09/21/19 06:40 Microcytosis 1+ 09/21/19 06:40 Macrocytosis 0 09/21/19 06:40 Spherocytes 1+ 09/21/19 06:40 Target Cells Few 09/15/19 13:50 Ovalocytes 1+ 09/21/19 06:40 Acanthocytes (Spur) 1+ 09/21/19 06:40 ESR 55 mm/hr (0-30) H 09/21/19 06:40 Retic Count 1.39 % (0.5-1.5) 09/22/19 07:34 Sodium 139 mmol/L (136-145) 09/22/19 07:34 Potassium 5.0 mmol/L (3.5-5.1) 09/22/19 07:34 Chloride 103 mmol/L (98-107) 09/22/19 07:34 Carbon Dioxide 28 mmol/L (21-32) 09/22/19 07:34 Anion Gap 9 MMOL/L (8-16) 09/22/19 07:34 BUN 52.4 mg/dL (7-18) H 09/22/19 07:34 Creatinine 3.5 mg/dL (0.55-1.3) H 09/22/19 07:34 Est GFR (CKD-EPI)AfAm 14.23 09/22/19 07:34 Est GFR (CKD-EPI)NonAf 12.28 09/22/19 07:34 POC Glucometer 116 UNITS (80-120) 09/16/19 12:06 Random Glucose 88 mg/dL (74-106) 09/22/19 07:34 Serum Osmolality 301 mosm/kg (278-305) 09/19/19 06:50 Lactic Acid 1.0 mmol/L (0.4-2.0) 09/13/19 18:33 Calcium 9.6 mg/dL (8.5-10.1) 09/22/19 07:34 Phosphorus 6.5 mg/dL (2.5-4.9) H 09/22/19 07:34 Magnesium 1.8 mg/dL (1.8-2.4) 09/22/19 07:34 Iron 44 ug/dL (50-175) L 09/14/19 07:00 TIBC 248 ug/dL (250-450) L 09/14/19 07:00 Iron Saturation 17 % (17.5-39) L 09/14/19 07:00 Unsaturated IBC 204 ug/dL (200-275) 09/14/19 07:00 Ferritin 363.3 ng/ml (8-388) 09/16/19 07:00 Total Bilirubin 0.5 mg/dL (0.2-1) 09/22/19 07:34 AST 39 U/L (15-37) H 09/22/19 07:34 ALT 14 U/L (13-61) 09/22/19 07:34 Alkaline Phosphatase 184 U/L (45-117) H 09/22/19 07:34 Creatine Kinase 73 U/L (26-192) 09/13/19 14:10 Troponin I Cancelled 09/13/19 14:40 C-Reactive Protein 4.7 MG/DL (0.00-0.3) H 09/21/19 06:40 B-Natriuretic Peptide 5940.9 pg/ml (5-125) H 09/19/19 06:50 Total Protein 5.9 g/dl (6.4-8.2) L 09/22/19 07:34 Albumin 2.8 g/dl (3.4-5.0) L 09/22/19 07:34 Vitamin B12 591 pg/ml (193-986) 09/14/19 07:00 Serum Folate 29 ng/mL (3.1-17.5) H 09/14/19 07:00 TSH 3.02 uIU/ml (0.358-3.74) 09/16/19 07:00 Active Medications Generic Name Dose Route Start Last Admin Trade Name Luz PRN Reason Stop Dose Admin Acetaminophen 650 mg 09/16/19 13:02 09/19/19 18:33 Tylenol - PO 650 mg Q6H PRN Administration Fever Or Pain 1-3 Albuterol/Ipratropium 1 amp 09/22/19 14:00 09/22/19 14:24 Duoneb - NEB Not Given RTID [facility] Calcitonin 1 spray 09/21/19 10:00 09/22/19 09:36 Miacalcin [place] - NS 1 spray DAILY [facility] Administration Carvedilol 3.125 mg 09/22/19 22:00 Coreg - PO BID [facility] Heparin Sodium (Porcine) 5,000 unit 09/13/19 20:30 09/22/19 14:55 Heparin - SQ 5,000 unit TID [facility] Administration Piperacillin Sod/Tazobactam 50 mls @ 100 mls/hr 09/19/19 18:00 09/22/19 12:06 Sod 2.25 gm/ Dextrose IVPB 100 mls/hr Q8H-IV [facility] Administration Protocol Ondansetron HCl 4 mg 09/13/19 22:00 09/22/19 14:55 Zofran - PO 4 mg TID [facility] Administration Pregabalin 150 mg 09/21/19 08:47 09/22/19 09:32 Lyrica - PO 150 mg BID [facility] Administration Tramadol HCl 100 mg 09/21/19 08:58 09/22/19 15:10 Ultram - PO 50 mg Q6H PRN Administration PAIN LEVEL 4 - 6 ASSESSMENT/PLAN: 73 y/o F, pmh of Breast cancer stage 3A w/ mets to the spine, peritoneal cavity , colon, spine, s/p right mastectomy, s/p radiation, b/l ureteral stents w/ b/l hydro, mild b/l pleural effusion, presents c/o of weakness of 1-2 weeks duration and abdominal cramping of 1 day duration #Abdominal cramping/Generalized spasm likely 2/2 to dehydration 2/2 Failure to thrive vs Navelbine adverse effect Sacrum x rays- marrow nfiltration and metastatic disease C-Spine MRI- metastatic deposits multiple- especially in the left lateral C1 mass. L-spine MRI- metastatic disease- interval chronic compression at L4 Discussed with uro- Dr. Stein- pt going to OR tomorrow for stent replacement Waiting for neurosurgery consult- Dr. Acosta #New Systolic CHF ECHO- EF 20%, which is significantly decreased from prior ECHO in 2018 which was EF normal Pt started on carvedolol 3.125 BID Cardio following Spiranolactone held in the setting on pt's renal problems #Right forearm Cellulitis cont Zosyn EMG ordered #Leukocytosis WBC trending down #ALEKSANDER, elevated Cre b/l hydronephrosis s/p ureteral stents- worsening contacted Dr. Josue- OR tomorrow Lasix renal scan- pending result- as per nephro- if normal, begin lasix #DVTppx hep sq TID FEN IVF- d/azucena monitor lytes NPO after midnight Dispo: cont Abx, f/u w/ neuro, f/u with cardio, OR tomorrow, NPO after MN Visit type - Emergency Visit Emergency Visit: Yes ED Registration Date: 09/17/19 Care time: The patient presented to the Emergency Department on the above date and was hospitalized for further evaluation of their emergent condition. - New Patient This patient is new to me today: Yes Date on this admission: 09/22/19 - Critical Care Critical Care patient: No - Discharge Referral Referred to [facility] Med P.C.: No ATTENDING PHYSICIAN STATEMENT I saw and evaluated the patient. I reviewed the resident's note and discussed the case with the resident. I agree with the resident's findings and plan as documented. SUBJECTIVE: OBJECTIVE: ASSESSMENT AND PLAN:
[2019-09-22] MEDS: CARVEDILOL 3.125 MG TABLET (FP) PO SCH (22:33)
[2019-09-23] MEDS ORDERED: PIPERACILLIN/TAZOBACTAM 2.25 GM VIAL IVPB ONE ×3 (01:00→16:33)
[2019-09-23] MEDS ORDERED: DEXTROSE 5%-WATER - 50 ML IVPB ONE ×3 (01:00→16:33)
[2019-09-23] MEDS: PIPERACILLIN/TAZOB 2.25 GM 2.25 GM in DEXTROSE 5%-WATER - 50 ML IVPB SCH ×3 (01:26→17:57)
[2019-09-23] MEDS: HEPARIN NA (PORCINE) 5,000 UNITS/ML 1ML VIAL SQ SCH ×4 (05:41→22:45)
[2019-09-23] MEDS: ONDANSETRON 4 MG TABLET PO SCH ×4 (05:41→22:46)
[2019-09-23 07:57] LABS: HEMATOCRIT 25.8 % (32.4-45.2); HEMOGLOBIN 8.6 GM/dL (10.7-15.3); MCH 32.9 pg (25.7-33.7); MCHC 33.5 g/dl (32.0-36.0); MEAN CELL VOLUME 98.3 fl (80-96); MEAN PLT VOLUME 7.6 fl (7.5-11.1); PLATELET COUNT 215 K/MM3 (134-434); RBC 2.63 M/mm3 (3.60-5.2); RDW 16.8 % (11.6-15.6)
[2019-09-23] MEDS: ALBUTEROL SO4 2.5/IPRATROPIUM 0.5 INH SOL 3 ML VIAL.NEB. NEB SCH ×3 (08:05→20:10)
[2019-09-23] MEDS ORDERED: ARTIFICIAL TEARS (POLYVINYL ALCOHOL) OPTH DROPS OU PRN ×2 (08:17→13:24)
[2019-09-23 08:26] LABS: ALBUMIN 2.4 g/dl (3.4-5.0); BILIRUBIN,TOTAL 0.6 mg/dL (0.2-1); BLOOD UREA NITROGEN 53.2 mg/dL (7-18); CALCIUM 8.6 mg/dL (8.5-10.1); CREATININE 3.9 mg/dL (0.55-1.3); MAGNESIUM 1.6 mg/dL (1.8-2.4); PHOSPHOROUS 7.3 mg/dL (2.5-4.9); POTASSIUM 4.8 mmol/L (3.5-5.1); TOT PROT 5.4 g/dl (6.4-8.2)
[2019-09-23] MEDS: CARVEDILOL 3.125 MG TABLET (FP) PO SCH ×2 (09:25→22:46)
[2019-09-23] MEDS: PREGABALIN 75 MG CAPSULE PO SCH ×2 (09:25→22:45)
[2019-09-23] MEDS: CALCITONIN - SALMON SYNTHETIC 200 UNITS/SPRAY NS SCH (09:25)
[2019-09-23] MEDS: ACETAMINOPHEN 325 MG TABLET (FP) PO PRN (09:26)
[2019-09-23] MEDS ORDERED: PT OWN MED DRAWER 7, Y5N ONE ×2 (09:58→22:12)
[2019-09-23] MEDS ORDERED: INSULIN (NOVOLOG) ASPART 100 UNITS/ML 10ML VIAL ONE (11:01)
--- NOTE | 2019-09-23 12:29 | PN ---
Progress Note (short form) - Note Progress Note: PULMONARY Denies shortness of breath or chest pain. For cystoscopy today. Vital Signs Period Temp Pulse Resp BP Sys/Avila Pulse Ox Last 24 Hr 97.4 F-98.1 F 79-99 20-20 131-152/74-92 97-100 Gen: NAD at rest Heart: RRR Lung: decreased breath sounds at the bases Abd: soft, nontender Ext: no edema CBC, BMP 09/23/19 07:15 09/23/19 07:15 Active Medications Acetaminophen (Tylenol -) 650 mg PO Q6H PRN PRN Reason: Fever Or Pain 1-3 Last Admin: 09/23/19 09:26 Dose: 650 mg Albuterol/Ipratropium (Duoneb -) 1 amp NEB RTID [facility] Last Admin: 09/23/19 08:05 Dose: 1 amp Artificial Tears (Artificial Tears) 1 drop OU BID PRN PRN Reason: DRY EYES Calcitonin (Miacalcin [place] -) 1 spray NS DAILY [facility] Last Admin: 09/23/19 09:25 Dose: Not Given Carvedilol (Coreg -) 3.125 mg PO BID [facility] Last Admin: 09/23/19 09:25 Dose: 3.125 mg Heparin Sodium (Porcine) (Heparin -) 5,000 unit SQ TID [facility] Last Admin: 09/23/19 05:41 Dose: 5,000 unit Piperacillin Sod/Tazobactam (Sod 2.25 gm/ Dextrose) 50 mls @ 100 mls/hr IVPB Q8H-IV [facility]; Protocol Last Admin: 09/23/19 09:25 Dose: 100 mls/hr Ondansetron HCl (Zofran -) 4 mg PO TID [facility] Last Admin: 09/23/19 05:41 Dose: 4 mg Pregabalin (Lyrica -) 150 mg PO BID [facility] Last Admin: 09/23/19 09:25 Dose: Not Given Tramadol HCl (Ultram -) 100 mg PO Q6H PRN PRN Reason: PAIN LEVEL 4 - 6 Last Admin: 09/22/19 15:10 Dose: 50 mg A/P Acute on Chronic Diastolic Heart Failure Acute on Chronic Renal Faiulre Bilateral Hydronephrosis Cellulitis Sepsis Metastatic Breast Ca HTN Hyperlipidemia Anemia - continue antibiotics - for cystoscopy/stent exchange - holding lasix - O2 as needed - inhaled bronchodilators - DVT prophylaxis
[2019-09-23] MEDS ORDERED: MIDAZOLAM HCL 2 MG/2 ML SINGLE DOSE VIAL ONE (13:22)
[2019-09-23] MEDS ORDERED: traMADol HCL 50 MG TABLET PO PRN (13:24)
[2019-09-23] MEDS ORDERED: ACETAMINOPHEN 325 MG TABLET (FP) PO PRN (13:24)
[2019-09-23] MEDS ORDERED: PROPOFOL 20 ML ONE (13:28)
[2019-09-23] MEDS ORDERED: SUCCINYLCHOLINE CHLORIDE 200 MG/10 ML SYRINGE ONE (13:29)
[2019-09-23] MEDS ORDERED: IOHEXOL 300 MG/ML INFUS..BTL IV ONE ×2 (13:53)
[2019-09-23] MEDS ORDERED: LACTATED RINGERS SOLUTION 1,000 ML IV SCH (14:30)
--- NOTE | 2019-09-23 14:43 | PN ---
Physical Exam: SUBJECTIVE: Patient seen and examined. Pt is doing well. No overnight events or issues. Pt still c/o of right arm pain, improved with pain meds. Afebrile and asymptomatic. Discussed with pt about surgery today. Pt understand and is prepped. Denies f/c/n/v/d/sob, chest pain OBJECTIVE: Vital Signs Period Temp Pulse Resp BP Sys/Avila Pulse Ox Last 24 Hr 97.4 F-98.1 F 79-99 20-20 131-152/74-92 97-100 GENERAL: AOx3, NAD HEAD: Normal with no signs of trauma. EYES: PERRL, extraocular movements intact, sclera anicteric, conjunctiva clear. No ptosis. ENT: oropharynx clear without exudates, moist mucous membranes. LUNGS: Breath sounds equal, clear to auscultation bilaterally, no wheezes, no crackles HEART: Regular rate and rhythm, S1, S2 without murmur, rub or gallop. ABDOMEN: Soft, nontender, nondistended, normoactive bowel sounds, no guarding, EXTREMITIES: RUE mild erythema and swelling- improved, LUE normal, pulses intact b/l NEUROLOGICAL: Cranial nerves II through XII grossly intact. Normal speech, gait not observed. Laboratory Results - last 24 hr 09/23/19 07:15 WBC 11.0 H RBC 2.63 L Hgb 8.6 L Hct 25.8 L MCV 98.3 H MCH 32.9 MCHC 33.5 RDW 16.8 H Plt Count 215 MPV 7.6 Retic Count Sodium Potassium Chloride Carbon Dioxide Anion Gap BUN Creatinine Est GFR (CKD-EPI)AfAm Est GFR (CKD-EPI)NonAf Random Glucose Calcium Phosphorus Magnesium Total Bilirubin AST ALT Alkaline Phosphatase Total Protein Albumin Random Vancomycin Active Medications Current Medications Acetaminophen (Tylenol -) 650 mg PO Q6H PRN PRN Reason: Fever Or Pain 1-3 Albuterol/Ipratropium (Duoneb -) 1 amp NEB RTID [facility] Artificial Tears (Artificial Tears) 1 drop OU BID PRN PRN Reason: DRY EYES Calcitonin (Miacalcin [place] -) 1 spray NS DAILY [facility] Carvedilol (Coreg -) 3.125 mg PO BID [facility] Fentanyl (Sublimaze Injection -) 25 mcg IVPUSH [id number] PRN PRN Reason: PAIN-PACU ORDER X 4 DOSES ONLY Heparin Sodium (Porcine) (Heparin -) 5,000 unit SQ TID [facility] Last Admin: 09/23/19 13:32 Dose: Not Given Piperacillin Sod/Tazobactam (Sod 2.25 gm/ Dextrose) 50 mls @ 100 mls/hr IVPB Q8H-IV [facility]; Protocol Lactated Ringer's (Lactated Ringers Solution) 1,000 mls @ 75 mls/hr IV ASDIR [facility] Ondansetron HCl (Zofran -) 4 mg PO TID [facility] Last Admin: 09/23/19 13:32 Dose: Not Given Ondansetron HCl (Zofran Injection) 4 mg IVPUSH Q6H PRN PRN Reason: NAUSEA AND/OR VOMITING Pregabalin (Lyrica -) 150 mg PO BID [facility] Tramadol HCl (Ultram -) 100 mg PO Q6H PRN PRN Reason: PAIN LEVEL 4 - 6 Home Medications Medication Instructions Recorded Calcium Citrate/Magnesium/D3 2 tab PO DAILY 05/08/17 [Calcium Citrate Chewable Wafer] Cholecalciferol (Vitamin D3) 3,000 unit PO DAILY 05/08/17 [Vitamin D3] Vitamin B Complex 1 each PO DAILY 05/08/17 Ferrous Sulfate [Feosol] 325 mg PO DAILY 01/15/18 Magnesium Citrate 800 mg PO DAILY 01/15/18 Cyclobenzaprine HCl 10 mg PO Q8H 09/13/19 Ondansetron HCl [Zofran] 4 mg PO Q8H 09/13/19 Tramadol HCl 50 mg PO Q8H 09/13/19 Microbiology 09/19/19 14:00 Rectal Swab Salmonella/Shigella Culture - Final NO GROWTH OF SALMONELLA OR SHIGELLA SPECIES OBTAINED 09/19/19 14:00 Rectal Swab Campylobacter Culture - Final NO GROWTH OF CAMPYLOBACTER SPECIES OBTAINED 09/19/19 14:00 Rectal Swab Yersinia Culture - Final NO GROWTH OF YERSINIA SPECIES OBTAINED 09/19/19 14:00 Rectal Swab Vibrio Culture - Final NO GROWTH OF VIBRIO SPECIES OBTAINED 09/19/19 14:00 Rectal Swab Escherichia coli 0157 Culture - Final NO GROWTH OF E COLI 0157 OBTAINED 09/19/19 14:00 Stool Clostridioides difficile Antigen - Final 09/19/19 14:00 Stool Clostridioides difficile Toxin Assay - Final 09/19/19 14:00 Colon Fluid Gram Stain - Final 09/18/19 11:30 Urine - Urine Clean Catch Urine Culture - Final NO GROWTH OBTAINED 09/13/19 14:45 Blood - Peripheral Venous Blood Culture - Final NO GROWTH AFTER 5 DAYS INCUBATION 09/13/19 14:45 Blood - Peripheral Venous Blood Culture - Final NO GROWTH AFTER 5 DAYS INCUBATION 09/13/19 14:50 Urine - Urine Clean Catch Urine Culture - Final NO GROWTH OBTAINED ASSESSMENT/PLAN: 73 y/o F, pmh of Breast cancer stage 3A w/ mets to the spine, peritoneal cavity , colon, spine, s/p right mastectomy, s/p radiation, b/l ureteral stents w/ b/l hydro, mild b/l pleural effusion, presents c/o of weakness of 1-2 weeks duration and abdominal cramping of 1 day duration #ALEKSANDER, elevated Cre Cre worsening b/l hydronephrosis s/p ureteral stents- worsening Lasix renal scan- b/l renal outlet obstruction. Left renal function 59%, right renal function 41%. Pt going to surgery for Stent replacement- will reasses s/p #New Systolic CHF cause unknown as ECHO in 2018 was normal Likely adverse effect of Navelbine/chemo vs metastatic disease carvedolol 3.125 BID Cardio following Spiranolactone + Lasix held in the setting on pt's renal problems #Anemia Hb dropped to 8.6 likely 2/2 to dilutional in the setting of low blood counts r/p CBC for 6pm- will f/u #Right forearm Cellulitis cont Zosyn EMG: axonal sensimotor neuropathy LE MRI ordered by heme/onc- pending #Leukocytosis WBC trending down #Abdominal cramping/Generalized spasm likely 2/2 to dehydration 2/2 Failure to thrive vs Navelbine adverse effect now resolved Waiting for neurosurgery consult- Dr. Acosta- attempted to reach, discussed with fire and explosion investigator for call back #DVTppx hep sq TID FEN monitor lytes NPO after midnight, will resume diet as per surgery s/p Dispo: cont Abx, f/u w/ neuro, f/u with cardio, f/u after surgery Visit type - Emergency Visit Emergency Visit: Yes ED Registration Date: 09/17/19 Care time: The patient presented to the Emergency Department on the above date and was hospitalized for further evaluation of their emergent condition. - New Patient This patient is new to me today: Yes Date on this admission: 09/24/19 - Critical Care Critical Care patient: No - Discharge Referral Referred to [facility] Med P.C.: No ATTENDING PHYSICIAN STATEMENT I saw and evaluated the patient. I reviewed the resident's note and discussed the case with the resident. I agree with the resident's findings and plan as documented. SUBJECTIVE: OBJECTIVE: ASSESSMENT AND PLAN:
--- NOTE | 2019-09-23 16:10 | PN ---
Teaching Attending Note Name of Resident: Toñito Quintana ATTENDING PHYSICIAN STATEMENT I saw and evaluated the patient. I reviewed the resident's note and discussed the case with the resident. I agree with the resident's findings and plan as documented. SUBJECTIVE: Feels comfortable, pain well controlled. No SOB/dysuria/hematuria. No abdominal pain/diarrhea/nausea/vomiting. OBJECTIVE: Afebrile, Hemodynamically Stable. Last Vital Signs Temp Pulse Resp BP Pulse Ox 98.2 F 93 H 14 143/90 96 09/23/19 15:31 09/23/19 15:31 09/23/19 15:31 09/23/19 15:31 09/23/19 15:31 HEET - Atraumatic, Normocephalic. Heart - S1, S2, RRR Lungs - decreased air entry at bases. R side portacath. Abdomen - Soft, non-tender. -ostomy working, liquid stool. No hematochezia. Bowel Sounds normal. Extremities - no calf tenderness. Neuro - AAO x 3. Tone/Power normal all extremities. Laboratory Results - last 24 hr 09/23/19 09/23/19 09/23/19 07:15 07:15 07:15 WBC 11.0 H RBC 2.63 L Hgb 8.6 L Hct 25.8 L MCV 98.3 H MCH 32.9 MCHC 33.5 RDW 16.8 H Plt Count 215 MPV 7.6 Sodium 138 Potassium 4.8 Chloride 102 Carbon Dioxide 27 Anion Gap 9 BUN 53.2 H Creatinine 3.9 H Est GFR (CKD-EPI)AfAm 12.49 Est GFR (CKD-EPI)NonAf 10.77 Random Glucose 87 Calcium 8.6 Phosphorus 7.3 H Magnesium 1.6 L Total Bilirubin 0.6 AST 40 H ALT 15 Alkaline Phosphatase 166 H Total Protein 5.4 L Albumin 2.4 L Random Vancomycin 13.5 L Current Medications Generic Name Dose Route Start Last Admin Trade Name Freq PRN Reason Stop Dose Admin Acetaminophen 650 mg 09/23/19 13:24 Tylenol - PO Q6H PRN Fever Or Pain 1-3 Albuterol/Ipratropium 1 amp 09/23/19 14:00 09/23/19 14:00 Duoneb - NEB Not Given RTID [facility] Artificial Tears 1 drop 09/23/19 13:24 Artificial Tears OU BID PRN DRY EYES Calcitonin 1 spray 09/24/19 10:00 Miacalcin [place] - NS DAILY [facility] Carvedilol 3.125 mg 09/23/19 22:00 Coreg - PO BID [facility] Fentanyl 25 mcg 09/23/19 14:29 Sublimaze Injection - IVPUSH [id number] PRN PAIN-PACU ORDER X 4 DOSES ONLY Heparin Sodium (Porcine) 5,000 unit 09/23/19 14:00 09/23/19 13:32 Heparin - SQ Not Given TID [facility] Piperacillin Sod/Tazobactam 50 mls @ 100 mls/hr 09/23/19 18:00 Sod 2.25 gm/ Dextrose IVPB Q8H-IV [facility] Protocol Lactated Ringer's 1,000 mls @ 75 mls/hr 09/23/19 14:30 09/23/19 15:30 Lactated Ringers Solution IV 0 mls ASDIR [facility] Administration Ondansetron HCl 4 mg 09/23/19 14:00 09/23/19 13:32 Zofran - PO Not Given TID [facility] Ondansetron HCl 4 mg 09/23/19 14:29 Zofran Injection IVPUSH Q6H PRN NAUSEA AND/OR VOMITING Pregabalin 150 mg 09/23/19 22:00 Lyrica - PO BID [facility] Tramadol HCl 100 mg 09/23/19 13:24 Ultram - PO Q6H PRN PAIN LEVEL 4 - 6 Home Medications Medication Instructions Recorded Calcium Citrate/Magnesium/D3 2 tab PO DAILY 05/08/17 [Calcium Citrate Chewable [place]] Cholecalciferol (Vitamin D3) 3,000 unit PO DAILY 05/08/17 [Vitamin D3] Vitamin B Complex 1 each PO DAILY 05/08/17 Ferrous Sulfate [Feosol] 325 mg PO DAILY 01/15/18 Magnesium Citrate 800 mg PO DAILY 01/15/18 Cyclobenzaprine HCl 10 mg PO Q8H 09/13/19 Ondansetron HCl [Zofran] 4 mg PO Q8H 09/13/19 Tramadol HCl 50 mg PO Q8H 09/13/19 ASSESSMENT/PLAN: 73 year old female with history of Metastatic Breast Ca (bone, peritoneal cavity , stomach), s/p mastectomy, s/p small bowel resection/R colectomy/end ileostomy due to mets, last CTx 09/01/19, bilateral ureteral stents due to bilateral hydronephrosis due to compressive metastatic ca, presents with generalized weakness and upper body/torso spasm episode, lasting minutes, resolved spontaneously. She has history of spasm, on flexeril PRN. 1. Generalized weakness/Muscular Spasm - resolved Possible side-effects of chemotherapy and tumor burden/chronic disease. Hydration and electrolyte monitoring ongoing. Poor appetite - nutrition consulted for recommendations. No further spasm episodes. Flexeril PRN 2. ALEKSANDER Hx of bilateral hydronephrosis s/p ureteral stents, now with ALEKSANDER and worsening creatinine. NM Renal Scan positve for bilateral renal outlet obstruction For Cystoscopy today with stent exchange by Urology vs Nephrostomies Nephrology and Urology (Dr. Josue) following. 3. Cellulitis RUE - resolving No DVt on Duplex Continue Zosyn 4. Acute Systolic CHF, etiology unclear ?sec to Chemotherpay EF 20%, bibasal effusions. Coreg started Lasix held currently. Monitor fluid/respiratory status. Cardiology following. 5. Metastatic Breast Ca (bone - spine, ribs, femoral shafts, sacrum, peritoneal cavity), s/p mastectomy, last CTx 09/01/[address] Chest ?metastatic, no respiratory distress. s/p recent CTx s/p Neupogen Oncology following. 6. Compression Fracture L4 ?pathologic with significant stenosis L 3/4, L 4/5. Asymptomatic currently. Lyrica, Tramadol prn. Consider Neurosurgery eval as out-patient. 7. Macrocytic Anemia ? sec to CTx vs chronic disease vs marrow infiltration by tumor process. Iron levels borderline. On Ferrous Sulfate. B12/Folate wnl. Monitor H/H. Transfuse PRN. DVT Px - Heparin SQ
[2019-09-23] MEDS ORDERED: MAGNESIUM SULF 50% (8.12 MEQ/2 ML-1 GM VIAL) IVPB ONE (16:15)
[2019-09-23] MEDS ORDERED: VANCOMYCIN 1 GRAM (PRE-DOCKED) 1,000 MG/250 ML BAG IVPB ONE (17:20)
--- NOTE | 2019-09-23 17:24 | PN ---
Progress Note, Physician History of Present Illness: AWAKE IN BED NO C/O ABDOMINAL PAIN NO R UE PAIN AFEBRILE WBC IMPROVED - Current Medication List Current Medications: Active Medications Acetaminophen (Tylenol -) 650 mg PO Q6H PRN PRN Reason: Fever Or Pain 1-3 Albuterol/Ipratropium (Duoneb -) 1 amp NEB RTID [facility] Last Admin: 09/23/19 14:00 Dose: Not Given Artificial Tears (Artificial Tears) 1 drop OU BID PRN PRN Reason: DRY EYES Calcitonin (Miacalcin [place] -) 1 spray NS DAILY [facility] Carvedilol (Coreg -) 3.125 mg PO BID [facility] Fentanyl (Sublimaze Injection -) 25 mcg IVPUSH [id number] PRN PRN Reason: PAIN-PACU ORDER X 4 DOSES ONLY Heparin Sodium (Porcine) (Heparin -) 5,000 unit SQ TID [facility] Last Admin: 09/23/19 13:32 Dose: Not Given Piperacillin Sod/Tazobactam (Sod 2.25 gm/ Dextrose) 50 mls @ 100 mls/hr IVPB Q8H-IV [facility]; Protocol Lactated Ringer's (Lactated Ringers Solution) 1,000 mls @ 75 mls/hr IV ASDIR [facility] Last Admin: 09/23/19 15:30 Dose: 0 mls Vancomycin HCl 1,000 mg/ (Dextrose) 250 mls @ 166.667 mls/hr IVPB ONCE ONE; Protocol Stop: 09/23/19 18:49 Ondansetron HCl (Zofran -) 4 mg PO TID [facility] Last Admin: 09/23/19 13:32 Dose: Not Given Ondansetron HCl (Zofran Injection) 4 mg IVPUSH Q6H PRN PRN Reason: NAUSEA AND/OR VOMITING Pregabalin (Lyrica -) 150 mg PO BID [facility] Tramadol HCl (Ultram -) 100 mg PO Q6H PRN PRN Reason: PAIN LEVEL 4 - 6 - Objective Vital Signs: Vital Signs Temperature 98.7 F 09/23/19 16:00 Pulse Rate 87 09/23/19 16:00 Respiratory Rate 18 09/23/19 16:00 Blood Pressure 142/83 09/23/19 16:00 O2 Sat by Pulse Oximetry (%) 100 09/23/19 16:00 Constitutional: Yes: No Distress Cardiovascular: Yes: Regular Rate and Rhythm, S1, S2 Respiratory: Yes: CTA Bilaterally Gastrointestinal: Yes: Normal Bowel Sounds, Soft, Other (+ OSTOMY WITH SOFT STOOL). No: Tenderness Extremities: Yes: Other (R UE LYMPHEDEMA MINIMAL ERYTHEMA / WARMTH) Labs: CBC, BMP 09/23/19 07:15 09/23/19 07:15 INR, PTT INR 1.01 (0.83-1.09) 09/13/19 14:40 Assessment/Plan R UE CELLULITIS COLITIS METASTATIC CA CONTINUE ZOSYN REDOSE VANCOMYCIN
[2019-09-23 17:49] VITALS: BMI 25.6
--- NOTE | 2019-09-23 19:08 | PN ---
Progress Note, Physician History of Present Illness: Pt seen and examined at bedside. She is awake and alert. She denies shortness of breath. - Current Medication List Current Medications: Active Medications Acetaminophen (Tylenol -) 650 mg PO Q6H PRN PRN Reason: Fever Or Pain 1-3 Albuterol/Ipratropium (Duoneb -) 1 amp NEB RTID [facility] Last Admin: 09/23/19 14:00 Dose: Not Given Artificial Tears (Artificial Tears) 1 drop OU BID PRN PRN Reason: DRY EYES Calcitonin (Miacalcin [place] -) 1 spray NS DAILY [facility] Carvedilol (Coreg -) 3.125 mg PO BID [facility] Fentanyl (Sublimaze Injection -) 25 mcg IVPUSH [id number] PRN PRN Reason: PAIN-PACU ORDER X 4 DOSES ONLY Heparin Sodium (Porcine) (Heparin -) 5,000 unit SQ TID [facility] Last Admin: 09/23/19 13:32 Dose: Not Given Piperacillin Sod/Tazobactam (Sod 2.25 gm/ Dextrose) 50 mls @ 100 mls/hr IVPB Q8H-IV [facility]; Protocol Last Admin: 09/23/19 17:57 Dose: 100 mls/hr Lactated Ringer's (Lactated Ringers Solution) 1,000 mls @ 75 mls/hr IV ASDIR [facility] Last Admin: 09/23/19 15:30 Dose: 0 mls Ondansetron HCl (Zofran -) 4 mg PO TID [facility] Last Admin: 09/23/19 13:32 Dose: Not Given Ondansetron HCl (Zofran Injection) 4 mg IVPUSH Q6H PRN PRN Reason: NAUSEA AND/OR VOMITING Pregabalin (Lyrica -) 150 mg PO BID [facility] Tramadol HCl (Ultram -) 100 mg PO Q6H PRN PRN Reason: PAIN LEVEL 4 - 6 - Objective Vital Signs: Vital Signs Temperature 98.7 F 09/23/19 16:00 Pulse Rate 87 09/23/19 16:00 Respiratory Rate 18 09/23/19 16:00 Blood Pressure 142/83 09/23/19 16:00 O2 Sat by Pulse Oximetry (%) 100 09/23/19 16:00 Constitutional: Yes: Calm Eyes: Yes: Conjunctiva Clear HENT: Yes: Atraumatic Neck: Yes: Supple Cardiovascular: Yes: S1, S2 Respiratory: Yes: CTA Bilaterally Gastrointestinal: Yes: Soft Genitourinary: Yes: WNL Edema: RUE: Trace, LLE: Trace, RLE: Trace Neurological: Yes: Oriented Psychiatric: Yes: Oriented Labs: CBC, BMP 09/23/19 07:15 09/23/19 07:15 INR, PTT INR 1.01 (0.83-1.09) 09/13/19 14:40 Assessment/Plan Current Medications Generic Name Dose Route Start Last Admin Trade Name Freq PRN Reason Stop Dose Admin Acetaminophen 650 mg 09/23/19 13:24 Tylenol - PO Q6H PRN Fever Or Pain 1-3 Albuterol/Ipratropium 1 amp 09/23/19 14:00 09/23/19 14:00 Duoneb - NEB Not Given RTID [facility] Artificial Tears 1 drop 09/23/19 13:24 Artificial Tears OU BID PRN DRY EYES Calcitonin 1 spray 09/24/19 10:00 Miacalcin [place] - NS DAILY [facility] Carvedilol 3.125 mg 09/23/19 22:00 Coreg - PO BID [facility] Fentanyl 25 mcg 09/23/19 14:29 Sublimaze Injection - IVPUSH [id number] PRN PAIN-PACU ORDER X 4 DOSES ONLY Heparin Sodium (Porcine) 5,000 unit 09/23/19 14:00 09/23/19 13:32 Heparin - SQ Not Given TID [facility] Piperacillin Sod/Tazobactam 50 mls @ 100 mls/hr 09/23/19 18:00 09/23/19 17:57 Sod 2.25 gm/ Dextrose IVPB 100 mls/hr Q8H-IV [facility] Administration Protocol Lactated Ringer's 1,000 mls @ 75 mls/hr 09/23/19 14:30 09/23/19 15:30 Lactated Ringers Solution IV 0 mls ASDIR [facility] Administration Ondansetron HCl 4 mg 09/23/19 14:00 09/23/19 13:32 Zofran - PO Not Given TID [facility] Ondansetron HCl 4 mg 09/23/19 14:29 Zofran Injection IVPUSH Q6H PRN NAUSEA AND/OR VOMITING Pregabalin 150 mg 09/23/19 22:00 Lyrica - PO BID [facility] Tramadol HCl 100 mg 09/23/19 13:24 Ultram - PO Q6H PRN PAIN LEVEL 4 - 6 Impression 1. CKD 2. leukopenia 3. obstructive uropathy with bilateral hydro 4. breast cancer with mets 5. HTN 6. hyperlipidemia 7. anemia 8. ALEKSANDER 9. CHF Plan - pt s/p cysto and stent change - can stop fluids - follow up urology - avoid nsaids Dr Land
[2019-09-23 20:02] LABS: HEMATOCRIT 26.4 % (32.4-45.2); HEMOGLOBIN 8.6 GM/dL (10.7-15.3); MCH 32.1 pg (25.7-33.7); MCHC 32.3 g/dl (32.0-36.0); MEAN CELL VOLUME 99.3 fl (80-96); MEAN PLT VOLUME 7.5 fl (7.5-11.1); PLATELET COUNT 219 K/MM3 (134-434); RBC 2.66 M/mm3 (3.60-5.2); RDW 16.9 % (11.6-15.6); WHITE BLOOD COUNT 12.6 K/mm3 (4.0-10.0)
[2019-09-24] MEDS ORDERED: PIPERACILLIN/TAZOBACTAM 2.25 GM VIAL IVPB ONE ×3 (01:41→17:13)
[2019-09-24] MEDS ORDERED: DEXTROSE 5%-WATER - 50 ML IVPB ONE ×3 (01:42→17:13)
[2019-09-24] MEDS: PIPERACILLIN/TAZOB 2.25 GM 2.25 GM in DEXTROSE 5%-WATER - 50 ML IVPB SCH ×3 (01:50→19:33)
--- NOTE | 2019-09-24 04:35 | PN ---
Progress Note, Physician Chief Complaint: Pt A&Ox3; returned from cystoscopy and ureteral stent change; no chest pain or dyspnea; mild abdominal discomfort. History of Present Illness: 73 y/o white woman with pmh of Breast cancer stage 3A w/ mets to the spine, peritoneal cavity, colon, and spine, currently off chemoRx with Navelbine, s/p right mastectomy, s/p radiation Rx; bilateral hydronephrosis, s/p fariha ureteral stents; "CHF", now admitted with c/o of weakness of 1-2 weeks duration and abdominal cramping of 1 day duration. She reports that 2 weeks ago she came off chemotherapy under Dr. Edward's supervision and had a CAT scan completed showing R>L effusion. She also reports that she has never needed a walker, but has started to use one since her weakness began. She has been on and off chemo for 2 years now. She reports ALCOCER when walking fast, and bilateral LE edema, but denies LOC, dizziness, head trauma, palpitations, vertigo, tinnitus, chest pain , shortness of breath, orthopnea, PND. - Current Medication List Current Medications: Active Medications Acetaminophen (Tylenol -) 650 mg PO Q6H PRN PRN Reason: Fever Or Pain 1-3 Albuterol/Ipratropium (Duoneb -) 1 amp NEB RTID [facility] Last Admin: 09/23/19 20:10 Dose: 1 amp Artificial Tears (Artificial Tears) 1 drop OU BID PRN PRN Reason: DRY EYES Calcitonin (Miacalcin [place] -) 1 spray NS DAILY [facility] Carvedilol (Coreg -) 3.125 mg PO BID [facility] Last Admin: 09/23/19 22:46 Dose: 3.125 mg Fentanyl (Sublimaze Injection -) 25 mcg IVPUSH [id number] PRN PRN Reason: PAIN-PACU ORDER X 4 DOSES ONLY Heparin Sodium (Porcine) (Heparin -) 5,000 unit SQ TID [facility] Last Admin: 09/23/19 22:45 Dose: 5,000 unit Piperacillin Sod/Tazobactam (Sod 2.25 gm/ Dextrose) 50 mls @ 100 mls/hr IVPB Q8H-IV [facility]; Protocol Last Admin: 09/24/19 01:50 Dose: 100 mls/hr Lactated Ringer's (Lactated Ringers Solution) 1,000 mls @ 75 mls/hr IV ASDIR [facility] Last Admin: 09/23/19 15:30 Dose: 0 mls Ondansetron HCl (Zofran -) 4 mg PO TID [facility] Last Admin: 09/23/19 22:46 Dose: 4 mg Ondansetron HCl (Zofran Injection) 4 mg IVPUSH Q6H PRN PRN Reason: NAUSEA AND/OR VOMITING Pregabalin (Lyrica -) 150 mg PO BID [facility] Last Admin: 09/23/19 22:45 Dose: 150 mg Tramadol HCl (Ultram -) 100 mg PO Q6H PRN PRN Reason: PAIN LEVEL 4 - 6 - Objective Vital Signs: Vital Signs Temperature 98.8 F 09/23/19 22:07 Pulse Rate 94 H 09/23/19 22:07 Respiratory Rate 09/23/19 22:07 Blood Pressure 126/56 L 09/23/19 22:07 O2 Sat by Pulse Oximetry (%) 100 09/23/19 21:00 Constitutional: Yes: Calm Eyes: Yes: WNL HENT: Yes: WNL Neck: Yes: WNL Cardiovascular: Yes: S1, S2 Respiratory: Yes: Regular Gastrointestinal: Yes: Soft ...Rectal Exam: Yes: Deferred Genitourinary: No: Anuria Musculoskeletal: Yes: Muscle Weakness Extremities: Yes: Cool Edema: No Peripheral Pulses WNL: Yes Integumentary: Yes: WNL Neurological: Yes: Alert, Oriented, Weakness Psychiatric: Yes: Alert, Oriented Labs: CBC, BMP 09/23/19 19:30 09/23/19 07:15 INR, PTT INR 1.01 (0.83-1.09) 09/13/19 14:40 - ....Imaging Chest X-ray: Image Reviewed EKG: Image Reviewed Problem List - Problems (1) Acute on chronic systolic (congestive) heart failure Assessment/Plan: On carvedilol. Progressive renal dysfunction precludes use of Entresto, ACEI, ARB, or spironolactone at this time. Consider hydralazine + nitrate. F/u BUN/Cr, electrolytes, daily weight, Is and Os. (now s/p cystoscopy and renal stent change). Code(s): I50.23 - ACUTE ON CHRONIC SYSTOLIC (CONGESTIVE) HEART FAILURE (2) Anemia Code(s): D64.9 - ANEMIA, UNSPECIFIED (3) Metastasis from malignant tumor of breast Assessment/Plan: f/u with hem/oncologist. Code(s): C79.9 - SECONDARY MALIGNANT NEOPLASM OF UNSPECIFIED SITE; C50.919 - MALIGNANT NEOPLASM OF UNSP SITE OF UNSPECIFIED FEMALE BREAST (4) Leukocytosis Code(s): D72.829 - ELEVATED WHITE BLOOD CELL COUNT, UNSPECIFIED Qualifiers: Leukocytosis type: unspecified Qualified Code(s): D72.829 - Elevated white blood cell count, unspecified (5) Renal dysfunction Assessment/Plan: s/p cystoscopy, ureteral stent Code(s): N28.9 - DISORDER OF KIDNEY AND URETER, UNSPECIFIED
[2019-09-24] MEDS: ONDANSETRON 4 MG TABLET PO SCH ×3 (06:00→21:42)
[2019-09-24] MEDS: HEPARIN NA (PORCINE) 5,000 UNITS/ML 1ML VIAL SQ SCH (06:00)
--- NOTE | 2019-09-24 07:38 | PN ---
Physical Exam: SUBJECTIVE: Patient seen and examined OBJECTIVE: Vital Signs Period Temp Pulse Resp BP Sys/Avila Pulse Ox Last 24 Hr 97.8 F-98.8 F 79-98 14-20 126-155/56-92 94-100 GENERAL: The patient is awake, alert, and fully oriented, in no acute distress. HEAD: Normal with no signs of trauma. EYES: PERRL, extraocular movements intact, sclera anicteric, conjunctiva clear. No ptosis. ENT: Ears normal, nares patent, oropharynx clear without exudates, moist mucous membranes. NECK: Trachea midline, full range of motion, supple. LUNGS: Breath sounds equal, clear to auscultation bilaterally, no wheezes, no crackles, no accessory muscle use. HEART: Regular rate and rhythm, S1, S2 without murmur, rub or gallop. ABDOMEN: Soft, nontender, nondistended, normoactive bowel sounds, no guarding, no rebound, no hepatosplenomegaly, no masses. EXTREMITIES: 2+ pulses, warm, well-perfused, no edema. NEUROLOGICAL: Cranial nerves II through XII grossly intact. Normal speech, gait not observed. PSYCH: Normal mood, normal affect. SKIN: Warm, dry, normal turgor, no rashes or lesions noted Laboratory Results - last 24 hr 09/23/19 09/23/19 09/23/19 07:15 07:15 07:15 WBC 11.0 H RBC 2.63 L Hgb 8.6 L Hct 25.8 L MCV 98.3 H MCH 32.9 MCHC 33.5 RDW 16.8 H Plt Count 215 MPV 7.6 Sodium 138 Potassium 4.8 Chloride 102 Carbon Dioxide 27 Anion Gap 9 BUN 53.2 H Creatinine 3.9 H Est GFR (CKD-EPI)AfAm 12.49 Est GFR (CKD-EPI)NonAf 10.77 Random Glucose 87 Calcium 8.6 Phosphorus 7.3 H Magnesium 1.6 L Total Bilirubin 0.6 AST 40 H ALT 15 Alkaline Phosphatase 166 H Total Protein 5.4 L Albumin 2.4 L Random Vancomycin 13.5 L 09/23/19 19:30 WBC 12.6 H RBC 2.66 L Hgb 8.6 L Hct 26.4 L MCV 99.3 H MCH 32.1 MCHC 32.3 RDW 16.9 H Plt Count 219 MPV 7.5 Sodium Potassium Chloride Carbon Dioxide Anion Gap BUN Creatinine Est GFR (CKD-EPI)AfAm Est GFR (CKD-EPI)NonAf Random Glucose Calcium Phosphorus Magnesium Total Bilirubin AST ALT Alkaline Phosphatase Total Protein Albumin Random Vancomycin Active Medications Generic Name Dose Route Start Last Admin Trade Name Freq PRN Reason Stop Dose Admin Acetaminophen 650 mg 09/23/19 13:24 Tylenol - PO Q6H PRN Fever Or Pain 1-3 Albuterol/Ipratropium 1 amp 09/23/19 14:00 09/23/19 20:10 Duoneb - NEB 1 amp RTID [facility] Administration Artificial Tears 1 drop 09/23/19 13:24 Artificial Tears OU BID PRN DRY EYES Calcitonin 1 spray 09/24/19 10:00 Miacalcin [place] - NS DAILY [facility] Carvedilol 3.125 mg 09/23/19 22:00 09/23/19 22:46 Coreg - PO 3.125 mg BID [facility] Administration Fentanyl 25 mcg 09/23/19 14:29 Sublimaze Injection - IVPUSH [id number] PRN PAIN-PACU ORDER X 4 DOSES ONLY Heparin Sodium (Porcine) 5,000 unit 09/23/19 14:00 09/24/19 06:00 Heparin - SQ 5,000 unit TID [facility] Administration Piperacillin Sod/Tazobactam 50 mls @ 100 mls/hr 09/23/19 18:00 09/24/19 01:50 Sod 2.25 gm/ Dextrose IVPB 100 mls/hr Q8H-IV [facility] Administration Protocol Ondansetron HCl 4 mg 09/23/19 14:00 09/24/19 06:00 Zofran - PO 4 mg TID [facility] Administration Ondansetron HCl 4 mg 09/23/19 14:29 Zofran Injection IVPUSH Q6H PRN NAUSEA AND/OR VOMITING Pregabalin 150 mg 09/23/19 22:00 09/23/19 22:45 Lyrica - PO 150 mg BID [facility] Administration Tramadol HCl 100 mg 09/23/19 13:24 Ultram - PO Q6H PRN PAIN LEVEL 4 - 6 ASSESSMENT/PLAN: 73 y/o F, pmh of Breast cancer stage 3A w/ mets to the spine, peritoneal cavity , colon, spine, s/p right mastectomy, s/p radiation, b/l ureteral stents w/ b/l hydro, mild b/l pleural effusion, presents c/o of weakness of 1-2 weeks duration and abdominal cramping of 1 day duration #ALEKSANDER, elevated Cre Cre b/l hydronephrosis s/p ureteral stents Lasix renal scan- b/l renal outlet obstruction. Left renal function 59%, right renal function 41%. F/u w/ Uro and Heme/onc #New Systolic CHF cause unknown as ECHO in 2018 was normal Likely adverse effect of Navelbine/chemo vs metastatic disease carvedolol 3.125 BID Spiranolactone + Lasix held in the setting on pt's renal problems Progressive renal dysfunction precludes use of Entresto, ACEI, ARB, or spironolactone at this time. Consider hydralazine + nitrate. #Macrocytic Anemia ? sec to CTx vs chronic disease vs marrow infiltration by tumor process. Hb dropped to 8.6, r/p 8.6 likely 2/2 to dilutional in the setting of low blood counts Ferrous sulfate #Right forearm Cellulitis cont Zosyn EMG: axonal sensimotor neuropathy LE MRI ordered by heme/onc- pending #Leukocytosis WBC trending down #Abdominal cramping/Generalized spasm likely 2/2 to dehydration 2/2 Failure to thrive vs Navelbine adverse effect now resolved Waiting for neurosurgery consult- Dr. Acosta- attempted to reach, discussed with construction secretary for call back Flexeril prn Diet regular IVF d/azucena #DVTppx hep sq TID FEN monitor lytes NPO after midnight, will resume diet as per surgery s/p Dispo: cont Abx, f/u w/ neuro, f/u with cardio, f/u after surgery Visit type - Emergency Visit Emergency Visit: Yes ED Registration Date: 09/17/19 Care time: The patient presented to the Emergency Department on the above date and was hospitalized for further evaluation of their emergent condition. - New Patient This patient is new to me today: Yes Date on this admission: 09/25/19 - Critical Care Critical Care patient: No - Discharge Referral Referred to [facility] No ATTENDING PHYSICIAN STATEMENT I saw and evaluated the patient. I reviewed the resident's note and discussed the case with the resident. I agree with the resident's findings and plan as documented. SUBJECTIVE: OBJECTIVE: ASSESSMENT AND PLAN:
[2019-09-24 08:26] LABS: HEMATOCRIT 25.8 % (32.4-45.2); HEMOGLOBIN 8.6 GM/dL (10.7-15.3); MCH 32.9 pg (25.7-33.7); MCHC 33.4 g/dl (32.0-36.0); MEAN CELL VOLUME 98.6 fl (80-96); MEAN PLT VOLUME 7.8 fl (7.5-11.1); PLATELET COUNT 208 K/MM3 (134-434); RBC 2.62 M/mm3 (3.60-5.2); RDW 16.5 % (11.6-15.6); WHITE BLOOD COUNT 12.1 K/mm3 (4.0-10.0)
[2019-09-24] MEDS: ALBUTEROL SO4 2.5/IPRATROPIUM 0.5 INH SOL 3 ML VIAL.NEB. NEB SCH ×3 (08:30→19:44)
[2019-09-24 08:43] LABS: ALBUMIN 2.4 g/dl (3.4-5.0); BILIRUBIN,TOTAL 0.4 mg/dL (0.2-1); BLOOD UREA NITROGEN 59.4 mg/dL (7-18); CALCIUM 8.6 mg/dL (8.5-10.1); POTASSIUM 5.3 mmol/L (3.5-5.1); TOT PROT 5.5 g/dl (6.4-8.2)
[2019-09-24] MEDS: FERROUS SO4 325 MG TABLET (FP) PO SCH (09:21)
[2019-09-24] MEDS: CHOLECALCIFEROL (VIT D3) 1,000 UNIT (25 MCG) TABLET PO SCH (09:21)
[2019-09-24] MEDS: CARVEDILOL 3.125 MG TABLET (FP) PO SCH ×2 (09:21→21:42)
[2019-09-24] MEDS: CALCITONIN - SALMON SYNTHETIC 200 UNITS/SPRAY NS SCH (09:21)
[2019-09-24] MEDS: PREGABALIN 75 MG CAPSULE PO SCH ×2 (09:21→21:42)
[2019-09-24] MEDS ORDERED: SODIUM CHLORIDE 0.45% 1,000 ML IV SCH (10:15)
--- NOTE | 2019-09-24 10:32 | PN ---
Progress Note (short form) - Note Progress Note: Anesthesia postop note. POD#1, S/P Cysto ,stent placement under GA. VSS. No apparent post anesthesia complications.
--- NOTE | 2019-09-24 12:48 | PN ---
Progress Note (short form) - Note Progress Note: PULMONARY s/p cystoscopy/right ureteral stent exchange/removal left stent. Now with hematuria. Denies shortness of breath or chest pain. Vital Signs Period Temp Pulse Resp BP Sys/Avila Pulse Ox Last 24 Hr 98 F-98.8 F 87-98 14-20 126-155/56-92 94-100 Gen: NAD at rest Heart: RRR Lung: decreased breath sounds at the bases Abd: soft, nontender Ext: no edema CBC, BMP 09/24/19 07:49 09/24/19 07:49 Active Medications Acetaminophen (Tylenol -) 650 mg PO Q6H PRN PRN Reason: Fever Or Pain 1-3 Albuterol/Ipratropium (Duoneb -) 1 amp NEB RTID [facility] Last Admin: 09/24/19 08:30 Dose: 1 amp Artificial Tears (Artificial Tears) 1 drop OU BID PRN PRN Reason: DRY EYES Calcitonin (Miacalcin [place] -) 1 spray NS DAILY [facility] Last Admin: 09/24/19 09:21 Dose: 1 spray Carvedilol (Coreg -) 3.125 mg PO BID [facility] Last Admin: 09/24/19 09:21 Dose: 3.125 mg Cholecalciferol (Vitamin D3 -) 3,000 unit PO DAILY [facility] Last Admin: 09/24/19 09:21 Dose: 3,000 unit Fentanyl (Sublimaze Injection -) 25 mcg IVPUSH [id number] PRN PRN Reason: PAIN-PACU ORDER X 4 DOSES ONLY Ferrous Sulfate (Feosol -) 325 mg PO DAILY [facility] Last Admin: 09/24/19 09:21 Dose: 325 mg Heparin Sodium (Porcine) (Heparin -) 5,000 unit SQ TID [facility] Last Admin: 09/24/19 06:00 Dose: 5,000 unit Piperacillin Sod/Tazobactam (Sod 2.25 gm/ Dextrose) 50 mls @ 100 mls/hr IVPB Q8H-IV [facility]; Protocol Last Admin: 09/24/19 09:20 Dose: 100 mls/hr Sodium Chloride (1/2 Normal Saline) 1,000 mls @ 42 mls/hr IV ASDIR [facility] Last Admin: 09/24/19 12:01 Dose: 42 mls/hr Ondansetron HCl (Zofran -) 4 mg PO TID [facility] Last Admin: 09/24/19 06:00 Dose: 4 mg Ondansetron HCl (Zofran Injection) 4 mg IVPUSH Q6H PRN PRN Reason: NAUSEA AND/OR VOMITING Pregabalin (Lyrica -) 150 mg PO BID [facility] Last Admin: 09/24/19 09:21 Dose: 150 mg Tramadol HCl (Ultram -) 100 mg PO Q6H PRN PRN Reason: PAIN LEVEL 4 - 6 A/P Acute on Chronic Diastolic Heart Failure Acute on Chronic Renal Faiulre Bilateral Hydronephrosis Cellulitis Sepsis Metastatic Breast Ca HTN Hyperlipidemia Anemia - continue antibiotics - f/u renal/bladder ultrasound - urology f/u - holding lasix - O2 as needed - inhaled bronchodilators - DVT prophylaxis
--- NOTE | 2019-09-24 13:03 | PN ---
Progress Note, Physician History of Present Illness: Pt seen and examined at bedside. She is awake and alert. Renal function was worse this morning. Castellanos was placed and there is gross hematuria. - Current Medication List Current Medications: Active Medications Acetaminophen (Tylenol -) 650 mg PO Q6H PRN PRN Reason: Fever Or Pain 1-3 Albuterol/Ipratropium (Duoneb -) 1 amp NEB RTID [facility]S [facility]CLUDE 234 BEDS AT [facility] Last Admin: 09/24/19 08:30 Dose: 1 amp Artificial Tears (Artificial Tears) 1 drop OU BID PRN PRN Reason: DRY EYES Calcitonin (Miacalcin [place] -) 1 spray NS DAILY [facility]S INCLUDE 234 BEDS AT [facility] Last Admin: 09/24/19 09:21 Dose: 1 spray Carvedilol (Coreg -) 3.125 mg PO BID COUNTS INCLUDE 234 BEDS AT [facility] Last Admin: 09/24/19 09:21 Dose: 3.125 mg Cholecalciferol (Vitamin D3 -) 3,000 unit PO DAILY [facility]S INCLUDE 234 BEDS AT [facility] Last Admin: 09/24/19 09:21 Dose: 3,000 unit Fentanyl (Sublimaze Injection -) 25 mcg IVPUSH [id number] PRN PRN Reason: PAIN-PACU ORDER X 4 DOSES ONLY Ferrous Sulfate (Feosol -) 325 mg PO DAILY [facility]S INCLUDE 234 BEDS AT [facility] Last Admin: 09/24/19 09:21 Dose: 325 mg Heparin Sodium (Porcine) (Heparin -) 5,000 unit SQ TID COUNTS INCLUDE 234 BEDS AT [facility] Last Admin: 09/24/19 06:00 Dose: 5,000 unit Piperacillin Sod/Tazobactam (Sod 2.25 gm/ Dextrose) 50 mls @ 100 mls/hr IVPB Q8H-IV [facility]; Protocol Last Admin: 09/24/19 09:20 Dose: 100 mls/hr Sodium Chloride (1/2 Normal Saline) 1,000 mls @ 75 mls/hr IV ASDIR COUNTS INCLUDE 234 BEDS AT [facility] Ondansetron HCl (Zofran -) 4 mg PO TID COUNTS INCLUDE 234 BEDS AT [facility] Last Admin: 09/24/19 06:00 Dose: 4 mg Ondansetron HCl (Zofran Injection) 4 mg IVPUSH Q6H PRN PRN Reason: NAUSEA AND/OR VOMITING Pregabalin (Lyrica -) 150 mg PO BID COUNTS INCLUDE 234 BEDS AT [facility] Last Admin: 09/24/19 09:21 Dose: 150 mg Tramadol HCl (Ultram -) 100 mg PO Q6H PRN PRN Reason: PAIN LEVEL 4 - 6 - Objective Vital Signs: Vital Signs Temperature 98 F 09/24/19 09:00 Pulse Rate 97 H 09/24/19 09:00 Respiratory Rate 20 09/24/19 09:00 Blood Pressure 147/65 09/24/19 09:00 O2 Sat by Pulse Oximetry (%) 100 09/24/19 09:00 Constitutional: Yes: Calm Eyes: Yes: Conjunctiva Clear HENT: Yes: Atraumatic Neck: Yes: Supple Cardiovascular: Yes: S1, S2 Respiratory: Yes: CTA Bilaterally Gastrointestinal: Yes: Soft Genitourinary: Yes: Castellanos Present, Hematuria Musculoskeletal: Yes: WNL Edema: No Neurological: Yes: Oriented Psychiatric: Yes: Oriented Labs: CBC, BMP 09/24/19 07:49 09/24/19 07:49 INR, PTT INR 1.01 (0.83-1.09) 09/13/19 14:40 Assessment/Plan Current Medications Generic Name Dose Route Start Last Admin Trade Name Freq PRN Reason Stop Dose Admin Acetaminophen 650 mg 09/23/19 13:24 Tylenol - PO Q6H PRN Fever Or Pain 1-3 Albuterol/Ipratropium 1 amp 09/23/19 14:00 09/24/19 08:30 Duoneb - NEB 1 amp RTID [facility] Administration Artificial Tears 1 drop 09/23/19 13:24 Artificial Tears OU BID PRN DRY EYES Calcitonin 1 spray 09/24/19 10:00 09/24/19 09:21 Miacalcin [place] - NS 1 spray DAILY [facility] Administration Carvedilol 3.125 mg 09/23/19 22:00 09/24/19 09:21 Coreg - PO 3.125 mg BID [facility] Administration Cholecalciferol 3,000 unit 09/24/19 10:00 09/24/19 09:21 Vitamin D3 - PO 3,000 unit DAILY [facility] Administration Fentanyl 25 mcg 09/23/19 14:29 Sublimaze Injection - IVPUSH [id number] PRN PAIN-PACU ORDER X 4 DOSES ONLY Ferrous Sulfate 325 mg 09/24/19 10:00 09/24/19 09:21 Feosol - PO 325 mg DAILY [facility] Administration Heparin Sodium (Porcine) 5,000 unit 09/23/19 14:00 09/24/19 06:00 Heparin - SQ 5,000 unit TID [facility] Administration Piperacillin Sod/Tazobactam 50 mls @ 100 mls/hr 09/23/19 18:00 09/24/19 09:20 Sod 2.25 gm/ Dextrose IVPB 100 mls/hr Q8H-IV [facility] Administration Protocol Sodium Chloride 1,000 mls @ 75 mls/hr 09/24/19 13:00 1/2 Normal Saline IV ASDIR [facility] Ondansetron HCl 4 mg 09/23/19 14:00 09/24/19 06:00 Zofran - PO 4 mg TID [facility] Administration Ondansetron HCl 4 mg 09/23/19 14:29 Zofran Injection IVPUSH Q6H PRN NAUSEA AND/OR VOMITING Pregabalin 150 mg 09/23/19 22:00 09/24/19 09:21 Lyrica - PO 150 mg BID TRICIA Administration Tramadol HCl 100 mg 09/23/19 13:24 Ultram - PO Q6H PRN PAIN LEVEL 4 - 6 Impression 1. CKD 2. leukopenia 3. obstructive uropathy with bilateral hydro 4. breast cancer with mets 5. HTN 6. hyperlipidemia 7. anemia 8. ALEKSANDER 9. CHF Plan - cont fluids - agree with castellanos - recall urology to evaluate if he need cbi - follow repeat labs - of potassium elevated give lokelma - may need nephrostomy pending gu eval - avoid nsaids Dr Land
--- NOTE | 2019-09-24 13:51 | PN ---
Progress Note, Physician History of Present Illness: 73 y/o F, pmh of Breast cancer stage 3A w/ mets to the spine, peritoneal cavity , colon, spine currently off chem with Navelbine, s/p right mastectomy, s/p radiation, b/l ureteral stents w/ b/l hydro, mild b/l pleural effusion, initially presented c/o of weakness of 1-2 weeks duration and abdominal cramping of 1 day duration. She reports that 2 weeks ago she came off chemo under Dr. Edward's supervision and had a CAT scan completed showing R>L effusion. She also reports that she has never needed a walker but began to use one since her weakness started. She has been on and off chemo for 2 years now. She reports ALCOCER walking fast and bilateral LE edema, but denies LOC, dizziness, head trauma, palpitations, vertigo, tinnitis, chest pain, shortness of breath, orthopnea, PND. - Current Medication List Current Medications: Active Medications Acetaminophen (Tylenol -) 650 mg PO Q6H PRN PRN Reason: Fever Or Pain 1-3 Albuterol/Ipratropium (Duoneb -) 1 amp NEB RTID [facility] Last Admin: 09/24/19 08:30 Dose: 1 amp Artificial Tears (Artificial Tears) 1 drop OU BID PRN PRN Reason: DRY EYES Calcitonin (Miacalcin [place] -) 1 spray NS DAILY [facility] Last Admin: 09/24/19 09:21 Dose: 1 spray Carvedilol (Coreg -) 3.125 mg PO BID [facility] Last Admin: 09/24/19 09:21 Dose: 3.125 mg Cholecalciferol (Vitamin D3 -) 3,000 unit PO DAILY [facility] Last Admin: 09/24/19 09:21 Dose: 3,000 unit Fentanyl (Sublimaze Injection -) 25 mcg IVPUSH [id number] PRN PRN Reason: PAIN-PACU ORDER X 4 DOSES ONLY Ferrous Sulfate (Feosol -) 325 mg PO DAILY [facility] Last Admin: 09/24/19 09:21 Dose: 325 mg Heparin Sodium (Porcine) (Heparin -) 5,000 unit SQ TID [facility] Last Admin: 09/24/19 06:00 Dose: 5,000 unit Piperacillin Sod/Tazobactam (Sod 2.25 gm/ Dextrose) 50 mls @ 100 mls/hr IVPB Q8H-IV [facility]; Protocol Last Admin: 09/24/19 09:20 Dose: 100 mls/hr Sodium Chloride (1/2 Normal Saline) 1,000 mls @ 75 mls/hr IV ASDIR TRICIA Ondansetron HCl (Zofran -) 4 mg PO TID [facility] Last Admin: 09/24/19 06:00 Dose: 4 mg Ondansetron HCl (Zofran Injection) 4 mg IVPUSH Q6H PRN PRN Reason: NAUSEA AND/OR VOMITING Pregabalin (Lyrica -) 150 mg PO BID [facility] Last Admin: 09/24/19 09:21 Dose: 150 mg Tramadol HCl (Ultram -) 100 mg PO Q6H PRN PRN Reason: PAIN LEVEL 4 - 6 - Objective Vital Signs: Vital Signs Temperature 98 F 09/24/19 09:00 Pulse Rate 97 H 09/24/19 09:00 Respiratory Rate 09/24/19 09:00 Blood Pressure 147/65 09/24/19 09:00 O2 Sat by Pulse Oximetry (%) 100 09/24/19 09:00 Eyes: Yes: WNL, Conjunctiva Clear, EOM Intact HENT: Yes: WNL, Atraumatic, Normocephalic Neck: Yes: WNL, Supple, Trachea Midline Cardiovascular: Yes: WNL, Regular Rate and Rhythm Respiratory: Yes: WNL, Regular, CTA Bilaterally Gastrointestinal: Yes: WNL, Normal Bowel Sounds Genitourinary: Yes: WNL Musculoskeletal: Yes: WNL Extremities: Yes: WNL Edema: No Integumentary: Yes: WNL Neurological: Yes: WNL, Alert, Oriented ...Motor Strength: WNL Psychiatric: Yes: WNL Labs: CBC, BMP 09/24/19 07:49 09/24/19 07:49 INR, PTT INR 1.01 (0.83-1.09) 09/13/19 14:40 Assessment/Plan Problems (1) Acute on chronic systolic (congestive) heart failure Assessment/Plan: On carvedilol. Progressive renal dysfunction precludes use of Entresto, ACEI, ARB, or spironolactone at this time. Consider hydralazine + nitrate. F/u BUN/Cr, electrolytes, daily weight, Is and Os. (now s/p cystoscopy and renal stent change). Code(s): I50.23 - ACUTE ON CHRONIC SYSTOLIC (CONGESTIVE) HEART FAILURE (2) Anemia Code(s): D64.9 - ANEMIA, UNSPECIFIED (3) Metastasis from malignant tumor of breast Assessment/Plan: f/u with hem/oncologist. Code(s): C79.9 - SECONDARY MALIGNANT NEOPLASM OF UNSPECIFIED SITE; C50.919 - MALIGNANT NEOPLASM OF UNSP SITE OF UNSPECIFIED FEMALE BREAST (4) Leukocytosis Code(s): D72.829 - ELEVATED WHITE BLOOD CELL COUNT, UNSPECIFIED Qualifiers: Leukocytosis type: unspecified Qualified Code(s): D72.829 - Elevated white blood cell count, unspecified (5) Renal dysfunction Assessment/Plan: s/p cystoscopy, ureteral stent Code(s): N28.9 - DISORDER OF KIDNEY AND URETER, UNSPECIFIED
--- NOTE | 2019-09-24 13:52 | PN ---
Teaching Attending Note Name of Resident: Toñito Quintana ATTENDING PHYSICIAN STATEMENT I saw and evaluated the patient. I reviewed the resident's note and discussed the case with the resident. I agree with the resident's findings and plan as documented. SUBJECTIVE: Feels comfortable, pain well controlled. No SOB/CP. No abdominal pain/diarrhea/nausea/vomiting. OBJECTIVE: Afebrile, Hemodynamically Stable. Hematuria s/p Bahena placement. Pale ++ Last Vital Signs Temp Pulse Resp BP Pulse Ox 98 F 97 H 20 147/65 100 09/24/19 09:00 09/24/19 09:00 09/24/19 09:00 09/24/19 09:00 09/24/19 09:00 HEET - Atraumatic, Normocephalic, Pale. Heart - S1, S2, RRR Lungs - decreased air entry at bases. R side portacath. Abdomen - Soft, non-tender. -ostomy working, liquid stool. No hematochezia. Bowel Sounds normal. Extremities - mild edema, no calf tenderness. RUE erythema improved, still mild swelling. Neuro - AAO x 3. Tone/Power normal all extremities. Laboratory Results - last 24 hr 09/23/19 09/24/19 09/24/19 19:30 07:49 07:49 WBC 12.6 H 12.1 H RBC 2.66 L 2.62 L Hgb 8.6 L 8.6 L Hct 26.4 L 25.8 L MCV 99.3 H 98.6 H MCH 32.1 32.9 MCHC 32.3 33.4 RDW 16.9 H 16.5 H Plt Count 219 208 MPV 7.5 7.8 Sodium 139 Potassium 5.3 H Chloride 102 Carbon Dioxide 23 Anion Gap 14 BUN 59.4 H Creatinine 5.0 H Est GFR (CKD-EPI)AfAm 9.25 Est GFR (CKD-EPI)NonAf 7.98 Random Glucose 96 Calcium 8.6 Total Bilirubin 0.4 AST 50 H ALT 15 Alkaline Phosphatase 158 H Total Protein 5.5 L Albumin 2.4 L Current Medications Generic Name Dose Route Start Last Admin Trade Name Freq PRN Reason Stop Dose Admin Acetaminophen 650 mg 09/23/19 13:24 Tylenol - PO Q6H PRN Fever Or Pain 1-3 Albuterol/Ipratropium 1 amp 09/23/19 14:00 09/24/19 08:30 Duoneb - NEB 1 amp RTID TRICIA Administration Artificial Tears 1 drop 09/23/19 13:24 Artificial Tears OU BID PRN DRY EYES Calcitonin 1 spray 09/24/19 10:00 09/24/19 09:21 Miacalcin [place] - NS 1 spray DAILY TRICIA Administration Carvedilol 3.125 mg 09/23/19 22:00 09/24/19 09:21 Coreg - PO 3.125 mg BID TRICIA Administration Cholecalciferol 3,000 unit 09/24/19 10:00 09/24/19 09:21 Vitamin D3 - PO 3,000 unit DAILY TRICIA Administration Fentanyl 25 mcg 09/23/19 14:29 Sublimaze Injection - IVPUSH [id number] PRN PAIN-PACU ORDER X 4 DOSES ONLY Ferrous Sulfate 325 mg 09/24/19 10:00 09/24/19 09:21 Feosol - PO 325 mg DAILY TRICIA Administration Heparin Sodium (Porcine) 5,000 unit 09/23/19 14:00 09/24/19 06:00 Heparin - SQ 5,000 unit TID TRICIA Administration Piperacillin Sod/Tazobactam 50 mls @ 100 mls/hr 09/23/19 18:00 09/24/19 09:20 Sod 2.25 gm/ Dextrose IVPB 100 mls/hr Q8H-IV TRICIA Administration Protocol Sodium Chloride 1,000 mls @ 75 mls/hr 09/24/19 13:00 1/2 Normal Saline IV ASDIR TRICIA Ondansetron HCl 4 mg 09/23/19 14:00 09/24/19 06:00 Zofran - PO 4 mg TID TRICIA Administration Ondansetron HCl 4 mg 09/23/19 14:29 Zofran Injection IVPUSH Q6H PRN NAUSEA AND/OR VOMITING Pregabalin 150 mg 09/23/19 22:00 09/24/19 09:21 Lyrica - PO 150 mg BID TRICIA Administration Tramadol HCl 100 mg 09/23/19 13:24 Ultram - PO Q6H PRN PAIN LEVEL 4 - 6 Home Medications Medication Instructions Recorded Calcium Citrate/Magnesium/D3 2 tab PO DAILY 05/08/17 [Calcium Citrate Chewable Wafer] Cholecalciferol (Vitamin D3) 3,000 unit PO DAILY 05/08/17 [Vitamin D3] Vitamin B Complex 1 each PO DAILY 05/08/17 Ferrous Sulfate [Feosol] 325 mg PO DAILY 01/15/18 Magnesium Citrate 800 mg PO DAILY 01/15/18 Cyclobenzaprine HCl 10 mg PO Q8H 09/13/19 Ondansetron HCl [Zofran] 4 mg PO Q8H 09/13/19 Tramadol HCl 50 mg PO Q8H 09/13/19 ASSESSMENT/PLAN: 73 year old female with history of Metastatic Breast Ca (bone, peritoneal cavity , stomach), s/p mastectomy, s/p small bowel resection/R colectomy/end ileostomy due to mets, last CTx 09/01/19, bilateral ureteral stents due to bilateral hydronephrosis due to compressive metastatic ca, presents with generalized weakness and upper body/torso spasm episode, lasting minutes, resolved spontaneously. She has history of spasm, on flexeril PRN. 1. Generalized weakness/Muscular Spasm - resolved Possible side-effects of chemotherapy and tumor burden/chronic disease. Hydration and electrolyte monitoring ongoing. Poor appetite - nutrition consulted for recommendations. No further spasm episodes. Flexeril PRN 2. ALEKSANDER NM Renal Scan positve for bilateral renal outlet obstruction Hx of bilateral hydronephrosis s/p ureteral stents, now with ALEKSANDER and worsening creatinine POD 1 s/p Cystoscopy with R ureteral stent exchange and L ureteral stent removal. Nephrology and Urology (Dr. Josue) following. For L Nephrostomy as per Urology - discussed possible need for CBI with Dr. Josue - to hold off for now pending Urology eval later today. Gentle IV hydration. Repeat Renal US given worsening renal function. 3. Cellulitis RUE - resolving Leukocytosis resolving. No DVT on US Duplex On Zosyn/Vanco as per ID - to discuss switch to oral Abx with ID. 4. Acute Systolic CHF, etiology unclear ?sec to Chemotherpay EF 20%, bibasal effusions. Coreg started Lasix held currently in favor of gentle hydration. Monitor fluid/respiratory status. Cardiology following. 5. Metastatic Breast Ca (bone - spine, ribs, femoral shafts, sacrum, peritoneal cavity), s/p mastectomy, last CTx 09/01/[address] Chest ?metastatic, no respiratory distress. s/p recent CTx s/p Neupogen Oncology following. 6. Compression Fracture L4 ?pathologic with significant stenosis L 3/4, L 4/5. Asymptomatic currently. Lyrica, Tramadol prn. Consider Neurosurgery eval as out-patient. 7. Macrocytic Anemia ? sec to CTx vs chronic disease vs marrow infiltration by tumor process. Iron levels borderline. On Ferrous Sulfate. B12/Folate wnl. Hematuria now - will monitor H/H. Transfuse PRN. 8. Hyperkalemia sec to ALEKSANDER - monitor s/p lLkelma. DVT Px - hold Heparin SQ
--- NOTE | 2019-09-24 14:50 | PN ---
Physical Exam: SUBJECTIVE: Patient seen and examined. POD1 s/p stent replacement. Pt appears pale than usual. Pt reports no overnight events, afebrile and asymptomatic. Pt does report improved on arm pain. Denies f/c/n/v/d/sob/cp OBJECTIVE: Vital Signs Period Temp Pulse Resp BP Sys/[place] Pulse Ox Last 24 Hr 98 F-98.8 F 87-98 14-20 126-155/56-92 94-100 GENERAL: The patient is awake, alert, and fully oriented, in no acute distress. EYES: PERRL, extraocular movements intact, sclera anicteric, conjunctiva clear. No ptosis. ENT: oropharynx clear without exudates, moist mucous membranes. NECK: Trachea midline, full range of motion, supple. LUNGS: Breath sounds equal, clear to auscultation bilaterally, no wheezes, no crackles HEART: Regular rate and rhythm, S1, S2 without murmur, rub or gallop. ABDOMEN: Soft, nontender, nondistended, normoactive bowel sounds, no guarding. Right Colostomy bag intact EXTREMITIES: 2+ pulses, warm, well-perfused, no edema. NEUROLOGICAL: Cranial nerves II through XII grossly intact. Normal speech PSYCH: Normal mood, normal affect. SKIN: Warm, dry, normal turgor, no rashes or lesions noted Laboratory Results - last 24 hr 09/23/19 09/24/19 09/24/19 19:30 07:49 07:49 WBC 12.6 H 12.1 H RBC 2.66 L 2.62 L Hgb 8.6 L 8.6 L Hct 26.4 L 25.8 L MCV 99.3 H 98.6 H MCH 32.1 32.9 MCHC 32.3 33.4 RDW 16.9 H 16.5 H Plt Count 219 208 MPV 7.5 7.8 Sodium 139 Potassium 5.3 H Chloride 102 Carbon Dioxide 23 Anion Gap 14 BUN 59.4 H Creatinine 5.0 H Est GFR (CKD-EPI)AfAm 9.25 Est GFR (CKD-EPI)NonAf 7.98 Random Glucose 96 Calcium 8.6 Total Bilirubin 0.4 AST 50 H ALT 15 Alkaline Phosphatase 158 H Total Protein 5.5 L Albumin 2.4 L Active Medications Generic Name Dose Route Start Last Admin Trade Name Freq PRN Reason Stop Dose Admin Acetaminophen 650 mg 09/23/19 13:24 Tylenol - PO Q6H PRN Fever Or Pain 1-3 Albuterol/Ipratropium 1 amp 09/23/19 14:00 09/24/19 08:30 Duoneb - NEB 1 amp RTID TRICIA Administration Artificial Tears 1 drop 09/23/19 13:24 Artificial Tears OU BID PRN DRY EYES Calcitonin 1 spray 09/24/19 10:00 09/24/19 09:21 Miacalcin [place] - NS 1 spray DAILY TRICIA Administration Carvedilol 3.125 mg 09/23/19 22:00 09/24/19 09:21 Coreg - PO 3.125 mg BID TRICIA Administration Cholecalciferol 3,000 unit 09/24/19 10:00 09/24/19 09:21 Vitamin D3 - PO 3,000 unit DAILY TRICIA Administration Fentanyl 25 mcg 09/23/19 14:29 Sublimaze Injection - IVPUSH [id number] PRN PAIN-PACU ORDER X 4 DOSES ONLY Ferrous Sulfate 325 mg 09/24/19 10:00 09/24/19 09:21 Feosol - PO 325 mg DAILY TRICIA Administration Piperacillin Sod/Tazobactam 50 mls @ 100 mls/hr 09/23/19 18:00 09/24/19 09:20 Sod 2.25 gm/ Dextrose IVPB 100 mls/hr Q8H-IV TRICIA Administration Protocol Sodium Chloride 1,000 mls @ 75 mls/hr 09/24/19 13:00 1/2 Normal Saline IV ASDIR TRICIA Ondansetron HCl 4 mg 09/23/19 14:00 09/24/19 06:00 Zofran - PO 4 mg TID TRICIA Administration Ondansetron HCl 4 mg 09/23/19 14:29 Zofran Injection IVPUSH Q6H PRN NAUSEA AND/OR VOMITING Pregabalin 150 mg 09/23/19 22:00 09/24/19 09:21 Lyrica - PO 150 mg BID TRICIA Administration Tramadol HCl 100 mg 09/23/19 13:24 Ultram - PO Q6H PRN PAIN LEVEL 4 - 6 ASSESSMENT/PLAN: 73 y/o F, pmh of Breast cancer stage 3A w/ mets to the spine, peritoneal cavity , colon, spine, s/p right mastectomy, s/p radiation, b/l ureteral stents w/ b/l hydro, mild b/l pleural effusion, presents c/o of weakness of 1-2 weeks duration and abdominal cramping of 1 day duration #ALEKSANDER, elevated Cre Cre worsening- at 5 b/l hydronephrosis s/p ureteral stents of right and left stent removed Bahena draining large volume bloody urine Discussed with Parth- planned for nephrostomy tube placement today Notified Dr. Lester- will f/u #New Systolic CHF Likely adverse effect of Navelbine/chemo vs metastatic disease carvedolol 3.125 BID Spiranolactone + Lasix held in the setting on pt's renal problems Progressive renal dysfunction precludes use of Entresto, ACEI, ARB, or spironolactone at this time. Consider hydralazine + nitrate. #Macrocytic Anemia ? sec to CTx vs chronic disease vs marrow infiltration by tumor process. likely 2/2 to dilutional in the setting of low blood counts Ferrous sulfate Hb dropped to 8.6, r/p CBC ordered for 2pm #Hyperkalemia BMP r/p- if potassium high start Lokelma #Right forearm Cellulitis cont Zosyn LE MRI ordered by heme/onc- pending Will f/u with ID for vancomycin dosing #Leukocytosis WBC trending down #Abdominal cramping/Generalized spasm likely 2/2 to dehydration 2/2 Failure to thrive vs Navelbine adverse effect now resolved Waiting for neurosurgery consult- Dr. Acosta- attempted to reach, discussed with corporate secretary for call back Flexeril prn IVF d/azucena #DVTppx hep sq TID FEN monitor lytes Regular diet Dispo: cont Abx, f/u w/ neuro, f/u Nephrostomy tube Visit type - Emergency Visit Emergency Visit: Yes ED Registration Date: 09/17/19 Care time: The patient presented to the Emergency Department on the above date and was hospitalized for further evaluation of their emergent condition. - New Patient This patient is new to me today: Yes Date on this admission: 09/25/19 - Critical Care Critical Care patient: No - Discharge Referral Referred to [facility] Med P.C.: No ATTENDING PHYSICIAN STATEMENT I saw and evaluated the patient. I reviewed the resident's note and discussed the case with the resident. I agree with the resident's findings and plan as documented. SUBJECTIVE: OBJECTIVE: ASSESSMENT AND PLAN:
[2019-09-24] MEDS ORDERED: PT OWN MED DRAWER 7, Y5N ONE (15:15)
[2019-09-24] MEDS: SODIUM CHLORIDE 0.45% 1,000 ML IV SCH (15:17)
[2019-09-24 16:03] LABS: BLOOD UREA NITROGEN 64.8 mg/dL (7-18); CALCIUM 8.7 mg/dL (8.5-10.1); CREATININE 5.2 mg/dL (0.55-1.3); POTASSIUM 5.6 mmol/L (3.5-5.1)
[2019-09-24] MEDS ORDERED: SODIUM ZIRCONIUM CYCLOSILICATE (LOKELMA) 5 GM PACKET PO ONE (16:59)
--- NOTE | 2019-09-24 20:00 | OP ---
DATE OF OPERATION: 09/23/2019 PREOPERATIVE DIAGNOSIS: Bilateral hydronephrosis, bilateral ureteral stent, worsening creatinine. POSTOPERATIVE DIAGNOSIS: Bilateral hydronephrosis, bilateral ureteral stent, worsening creatinine. PROCEDURE: Cystoscopy, removal of right and left ureteral stent and placement of right ureteral stent with retrograde pyelogram. FINDINGS: Bilateral hydronephrosis, unable to replace the left ureteral stent due to inflammation throughout the bladder. The stent 7 x 24 Double J ureteral stent on the right. PREOPERATIVE INDICATION: The patient cancer with bilateral ureteral obstruction and external compression. She has been managed with metal stents changed yearly. She is admitted this time with a worsening hydronephrosis and worsening creatinine bilaterally. Renal scan reveals obstruction bilaterally. She comes to the OR today for replacement of the stent. DESCRIPTION OF PROCEDURE: The patient was brought to the OR, placed on the table in the supine position. Given general anesthesia. Patient is already on IV antibiotics. Patient is placed in the modified lithotomy position. The groin was prepped and draped sterilely. Timeout was performed. Cystoscopy was performed. There was a tremendous amount of bleeding and viable tissue along the bladder trigone and inflammation. The metal stents were removed with grasping forceps. On the right side a wire was placed into the right kidney and was fluoroscopic guided. Retrograde pyelogram was performed to define the anatomy, and a 7 x 26 Double J ureteral stent was placed. Due to the inflammation and bleeding, the left ureteral orifice could not be visualized. After several attempts, this was abandoned. The patient was woken up. MYRTLE LEWIS M.D. [id number]
--- NOTE | 2019-09-24 21:00 | PN ---
Progress Note (short form) - Note Progress Note: Sleeping - S/P cysto, left stent exchange and removal of right stent Has hematuria - monitor CBC review of previous imaging (MRI'S) C- spine - extensive mets including large deposit C2 Lumbar spine extensive mets. Will need MRI bilateral of femurs when feasible. Monitor CBC
[2019-09-25] MEDS ORDERED: DEXTROSE 5%-WATER - 50 ML IVPB ONE ×2 (02:33→08:50)
[2019-09-25] MEDS ORDERED: PIPERACILLIN/TAZOBACTAM 2.25 GM VIAL IVPB ONE ×2 (02:33→08:50)
[2019-09-25] MEDS: PIPERACILLIN/TAZOB 2.25 GM 2.25 GM in DEXTROSE 5%-WATER - 50 ML IVPB SCH ×2 (02:42→09:03)
[2019-09-25] MEDS: SODIUM CHLORIDE 0.45% 1,000 ML IV SCH ×2 (06:02→17:58)
[2019-09-25] MEDS: ONDANSETRON 4 MG TABLET PO SCH ×3 (06:02→22:15)
[2019-09-25] MEDS: ALBUTEROL SO4 2.5/IPRATROPIUM 0.5 INH SOL 3 ML VIAL.NEB. NEB SCH ×3 (07:25→20:13)
[2019-09-25 08:39] LABS: HEMATOCRIT 23.1 % (32.4-45.2); HEMOGLOBIN 7.8 GM/dL (10.7-15.3); MCH 33.3 pg (25.7-33.7); MCHC 33.9 g/dl (32.0-36.0); MEAN CELL VOLUME 98.3 fl (80-96); PLATELET COUNT 181 K/MM3 (134-434); RBC 2.35 M/mm3 (3.60-5.2); RDW 16.8 % (11.6-15.6); WHITE BLOOD COUNT 8.9 K/mm3 (4.0-10.0)
--- NOTE | 2019-09-25 08:45 | PN ---
Physical Exam: SUBJECTIVE: Patient seen and examined. Pt appeared pale and lethargic in the am , 1 U PRBC transfused. Now pt appears much more improved. Mentation improved. Afebrile. Denies f/c/n/v/d/sob, chest pain. OBJECTIVE: Vital Signs Period Temp Pulse Resp BP Sys/Avila Pulse Ox Last 24 Hr 97.8 F-98.9 F 80-98 15-20 118-147/65-91 97-100 GENERAL: The patient is awake, alert,, not fully oriented to place. in no acute distress. Appears pale and lethargic. However, improved in the afternoon EYES: PERRL, extraocular movements intact, sclera anicteric, conjunctiva clear. ENT: oropharynx clear without exudates, moist mucous membranes. NECK: Trachea midline, full range of motion, supple. LUNGS: Breath sounds equal, clear to auscultation bilaterally, no wheezes, no crackles, HEART: Regular rate and rhythm, S1, S2 without murmur, rub or gallop. ABDOMEN: Soft, nontender, nondistended, normoactive bowel sounds, no guarding, Colostomy bag on the right. Left nephrostomy tube in place- draining normal colored urine. EXTREMITIES: 2+ pulses, warm, well-perfused, no edema. NEUROLOGICAL: Cranial nerves II through XII grossly intact. Normal speech PSYCH: Normal mood, normal affect. Laboratory Results - last 24 hr CBC,CMP WBC 8.9 K/mm3 (4.0-10.0) 09/25/19 07:54 RBC 2.35 M/mm3 (3.60-5.2) L 09/25/19 07:54 Hgb 7.8 GM/dL (10.7-15.3) L 09/25/19 07:54 Hct 23.1 % (32.4-45.2) L 09/25/19 07:54 MCV 98.3 fl (80-96) H 09/25/19 07:54 MCH 33.3 pg (25.7-33.7) 09/25/19 07:54 MCHC 33.9 g/dl (32.0-36.0) 09/25/19 07:54 RDW 16.8 % (11.6-15.6) H 09/25/19 07:54 Plt Count 181 K/MM3 (134-434) 09/25/19 07:54 MPV 8.0 fl (7.5-11.1) 09/25/19 07:54 Absolute Neuts (auto) 11.2 K/mm3 (1.5-8.0) H 09/22/19 07:34 Neutrophils % 85.8 % (42.8-82.8) H 09/22/19 07:34 Neutrophils % (Manual) 77.0 % (42.8-82.8) 09/21/19 06:40 Band Neutrophils % 10.0 % 09/21/19 06:40 Lymphocytes % 5.6 % (8-40) L 09/22/19 07:34 Lymphocytes % (Manual) 0.0 % (8-40) L 09/21/19 06:40 Monocytes % 6.4 % (3.8-10.2) 09/22/19 07:34 Monocytes % (Manual) 9 % (3.8-10.2) 09/21/19 06:40 Eosinophils % 1.7 % (0-4.5) 09/22/19 07:34 Eosinophils % (Manual) 2.0 % (0-4.5) 09/21/19 06:40 Basophils % 0.5 % (0-2.0) 09/22/19 07:34 Basophils % (Manual) 0.0 % (0-2.0) 09/21/19 06:40 Myelocytes % (Man) 0 % (0-2) 09/21/19 06:40 Promyelocytes % (Man) 0 % (0-2) 09/21/19 06:40 Blast Cells % (Manual) 0 % (0-0) 09/21/19 06:40 Nucleated RBC % 0 % (0-0) 09/22/19 07:34 Metamyelocytes 0 % (0-2) 09/21/19 06:40 Hypochromia 0 09/21/19 06:40 Platelet Estimate Normal 09/21/19 06:40 Polychromasia 0 09/21/19 06:40 Poikilocytosis 1+ 09/21/19 06:40 Anisocytosis 1+ 09/21/19 06:40 Microcytosis 1+ 09/21/19 06:40 Macrocytosis 0 09/21/19 06:40 Spherocytes 1+ 09/21/19 06:40 Target Cells Few 09/15/19 13:50 Ovalocytes 1+ 09/21/19 06:40 Acanthocytes (Spur) 1+ 09/21/19 06:40 ESR 55 mm/hr (0-30) H 09/21/19 06:40 Retic Count 1.39 % (0.5-1.5) 09/22/19 07:34 Sodium 139 mmol/L (136-145) 09/25/19 07:54 Potassium 4.9 mmol/L (3.5-5.1) 09/25/19 07:54 Chloride 103 mmol/L (98-107) 09/25/19 07:54 Carbon Dioxide 24 mmol/L (21-32) 09/25/19 07:54 Anion Gap 12 MMOL/L (8-16) 09/25/19 07:54 BUN 66.2 mg/dL (7-18) H 09/25/19 07:54 Creatinine 5.0 mg/dL (0.55-1.3) H 09/25/19 07:54 Est GFR (CKD-EPI)AfAm 9.25 09/25/19 07:54 Est GFR (CKD-EPI)NonAf 7.98 09/25/19 07:54 POC Glucometer 116 UNITS (80-120) 09/16/19 12:06 Random Glucose 97 mg/dL (74-106) 09/25/19 07:54 Serum Osmolality 301 mosm/kg (278-305) 09/19/19 06:50 Lactic Acid 1.0 mmol/L (0.4-2.0) 09/13/19 18:33 Calcium 8.6 mg/dL (8.5-10.1) 09/25/19 07:54 Phosphorus 8.6 mg/dL (2.5-4.9) H 09/25/19 07:54 Magnesium 2.0 mg/dL (1.8-2.4) 09/25/19 07:54 Iron 44 ug/dL (50-175) L 09/14/19 07:00 TIBC 248 ug/dL (250-450) L 09/14/19 07:00 Iron Saturation 17 % (17.5-39) L 09/14/19 07:00 Unsaturated IBC 204 ug/dL (200-275) 09/14/19 07:00 Ferritin 363.3 ng/ml (8-388) 09/16/19 07:00 Total Bilirubin 0.5 mg/dL (0.2-1) 09/25/19 07:54 AST 44 U/L (15-37) H 09/25/19 07:54 ALT 12 U/L (13-61) L 09/25/19 07:54 Alkaline Phosphatase 135 U/L (45-117) H 09/25/19 07:54 Creatine Kinase 73 U/L (26-192) 09/13/19 14:10 Troponin I Cancelled 09/13/19 14:40 C-Reactive Protein 4.7 MG/DL (0.00-0.3) H 09/21/19 06:40 B-Natriuretic Peptide 5940.9 pg/ml (5-125) H 09/19/19 06:50 Total Protein 5.0 g/dl (6.4-8.2) L 09/25/19 07:54 Albumin 2.1 g/dl (3.4-5.0) L 09/25/19 07:54 Vitamin B12 591 pg/ml (193-986) 09/14/19 07:00 Serum Folate 29 ng/mL (3.1-17.5) H 09/14/19 07:00 TSH 3.02 uIU/ml (0.358-3.74) 09/16/19 07:00 Active Medications Generic Name Dose Route Start Last Admin Trade Name Freq PRN Reason Stop Dose Admin Acetaminophen 650 mg 09/23/19 13:24 Tylenol - PO Q6H PRN Fever Or Pain 1-3 Albuterol/Ipratropium 1 amp 09/23/19 14:00 09/25/19 07:25 Duoneb - NEB 1 amp RTID TRICIA Administration Artificial Tears 1 drop 09/23/19 13:24 Artificial Tears OU BID PRN DRY EYES Calcitonin 1 spray 09/24/19 10:00 09/24/19 09:21 Miacalcin [place] - NS 1 spray DAILY TRICIA Administration Carvedilol 3.125 mg 09/23/19 22:00 09/24/19 21:42 Coreg - PO 3.125 mg BID TRICIA Administration Cholecalciferol 3,000 unit 09/24/19 10:00 09/24/19 09:21 Vitamin D3 - PO 3,000 unit DAILY TRICIA Administration Fentanyl 25 mcg 09/23/19 14:29 Sublimaze Injection - IVPUSH [id number] PRN PAIN-PACU ORDER X 4 DOSES ONLY Ferrous Sulfate 325 mg 09/24/19 10:00 09/24/19 09:21 Feosol - PO 325 mg DAILY TRICIA Administration Piperacillin Sod/Tazobactam 50 mls @ 100 mls/hr 09/23/19 18:00 09/25/19 02:42 Sod 2.25 gm/ Dextrose IVPB 100 mls/hr Q8H-IV TRICIA Administration Protocol Sodium Chloride 1,000 mls @ 75 mls/hr 09/24/19 13:00 09/25/19 06:02 1/2 Normal Saline IV 75 mls/hr ASDIR TRICIA Administration Ondansetron HCl 4 mg 09/23/19 14:00 09/25/19 06:02 Zofran - PO 4 mg TID TRICIA Administration Ondansetron HCl 4 mg 09/23/19 14:29 Zofran Injection IVPUSH Q6H PRN NAUSEA AND/OR VOMITING Pregabalin 150 mg 09/23/19 22:00 09/24/19 21:42 Lyrica - PO 150 mg BID TRICIA Administration Tramadol HCl 100 mg 09/23/19 13:24 Ultram - PO Q6H PRN PAIN LEVEL 4 - 6 ASSESSMENT/PLAN: 73 y/o F, pmh of Breast cancer stage 3A w/ mets to the spine, peritoneal cavity , colon, spine, s/p right mastectomy, s/p radiation, b/l ureteral stents w/ b/l hydro, mild b/l pleural effusion, presents c/o of weakness of 1-2 weeks duration and abdominal cramping of 1 day duration #ALEKSANDER, elevated Cre b/l hydronephrosis s/p ureteral stents F/u w/ Uro and Heme/onc Renal following Will discuss with family about pt's current status #New Systolic CHF cause unknown as ECHO in 2018 was normal Likely adverse effect of Navelbine/chemo vs metastatic disease carvedolol 3.125 BID Progressive renal dysfunction precludes use of Entresto, ACEI, ARB, or spironolactone at this time. Consider hydralazine + nitrate after pt's renal function as stabilized EKG ordered #Hyperkalemia Lokelma 10 given R/p BMP ordered- f/u #Macrocytic Anemia ? sec to CTx vs chronic disease vs marrow infiltration by tumor process. Hb dropped to 7.8- 1U PRBC given f/u r/p CBC Ferrous sulfate #Right forearm Cellulitis cont Zosyn- Will consider PO abx LE MRI ordered by heme/onc- pending #Right pelvic mass US bladder- cystic mass like density right hemipelvis- irregular mass like density if its anterior wall. #Abdominal cramping/Generalized spasm likely 2/2 to dehydration 2/2 Failure to thrive vs Navelbine adverse effect now resolved Waiting for neurosurgery consult- Dr. Acosta- attempted to reach, discussed with special education secretary for call back Flexeril prn Diet regular IVF 1/2 NS #Decreased mood likely 2/2 to cancer dx Will mental health counselor and consider antidepressants if needed #DVTppx hep sq TID FEN monitor lytes Regular diet 1/2 NS Dispo: cont Abx, f/u w/ neuro, f/u with cardio, f/u nephro, f/u Labs in the afternoon after transfusion Visit type - Emergency Visit Emergency Visit: Yes ED Registration Date: 09/17/19 Care time: The patient presented to the Emergency Department on the above date and was hospitalized for further evaluation of their emergent condition. - New Patient This patient is new to me today: Yes Date on this admission: 09/26/19 - Critical Care Critical Care patient: No - Discharge Referral Referred to [facility] No ATTENDING PHYSICIAN STATEMENT I saw and evaluated the patient. I reviewed the resident's note and discussed the case with the resident. I agree with the resident's findings and plan as documented. SUBJECTIVE: OBJECTIVE: ASSESSMENT AND PLAN:
[2019-09-25] MEDS: CARVEDILOL 3.125 MG TABLET (FP) PO SCH ×2 (09:03→22:15)
[2019-09-25] MEDS: FERROUS SO4 325 MG TABLET (FP) PO SCH (09:03)
[2019-09-25] MEDS: PREGABALIN 75 MG CAPSULE PO SCH ×2 (09:03→22:15)
[2019-09-25] MEDS: CHOLECALCIFEROL (VIT D3) 1,000 UNIT (25 MCG) TABLET PO SCH (09:03)
[2019-09-25] MEDS: CALCITONIN - SALMON SYNTHETIC 200 UNITS/SPRAY NS SCH (09:04)
[2019-09-25 09:06] LABS: ALBUMIN 2.1 g/dl (3.4-5.0); BILIRUBIN,TOTAL 0.5 mg/dL (0.2-1); BLOOD UREA NITROGEN 66.2 mg/dL (7-18); CALCIUM 8.6 mg/dL (8.5-10.1); PHOSPHOROUS 8.6 mg/dL (2.5-4.9); POTASSIUM 4.9 mmol/L (3.5-5.1)
--- NOTE | 2019-09-25 10:53 | PN ---
Progress Note (short form) - Note Progress Note: PULMONARY Still with hematuria. Denies shortness of breath or chest pain. Vital Signs Period Temp Pulse Resp BP Sys/Avila Pulse Ox Last 24 Hr 97.8 F-98.9 F 80-98 15-20 118-140/65-91 97-100 Gen: NAD at rest Heart: RRR Lung: decreased breath sounds at the bases Abd: soft, nontender Ext: no edema CBC, BMP 09/25/19 07:54 09/25/19 07:54 Active Medications Acetaminophen (Tylenol -) 650 mg PO Q6H PRN PRN Reason: Fever Or Pain 1-3 Albuterol/Ipratropium (Duoneb -) 1 amp NEB RTID [facility] Last Admin: 09/25/19 07:25 Dose: 1 amp Artificial Tears (Artificial Tears) 1 drop OU BID PRN PRN Reason: DRY EYES Calcitonin (Miacalcin [place] -) 1 spray NS DAILY [facility] Last Admin: 09/25/19 09:04 Dose: 1 spray Carvedilol (Coreg -) 3.125 mg PO BID [facility] Last Admin: 09/25/19 09:03 Dose: 3.125 mg Cholecalciferol (Vitamin D3 -) 3,000 unit PO DAILY [facility] Last Admin: 09/25/19 09:03 Dose: 3,000 unit Fentanyl (Sublimaze Injection -) 25 mcg IVPUSH [id number] PRN PRN Reason: PAIN-PACU ORDER X 4 DOSES ONLY Ferrous Sulfate (Feosol -) 325 mg PO DAILY [facility] Last Admin: 09/25/19 09:03 Dose: 325 mg Piperacillin Sod/Tazobactam (Sod 2.25 gm/ Dextrose) 50 mls @ 100 mls/hr IVPB Q8H-IV [facility]; Protocol Last Admin: 09/25/19 09:03 Dose: 100 mls/hr Sodium Chloride (1/2 Normal Saline) 1,000 mls @ 75 mls/hr IV ASDIR [facility] Last Admin: 09/25/19 06:02 Dose: 75 mls/hr Ondansetron HCl (Zofran -) 4 mg PO TID [facility] Last Admin: 09/25/19 06:02 Dose: 4 mg Ondansetron HCl (Zofran Injection) 4 mg IVPUSH Q6H PRN PRN Reason: NAUSEA AND/OR VOMITING Pregabalin (Lyrica -) 150 mg PO BID [facility] Last Admin: 09/25/19 09:03 Dose: 150 mg Tramadol HCl (Ultram -) 100 mg PO Q6H PRN PRN Reason: PAIN LEVEL 4 - 6 A/P Acute on Chronic Diastolic Heart Failure Acute on Chronic Renal Faiulre Bilateral Hydronephrosis Cellulitis Sepsis Metastatic Breast Ca HTN Hyperlipidemia Anemia - continue antibiotics - urology f/u - holding lasix - O2 as needed - inhaled bronchodilators - DVT prophylaxis
--- NOTE | 2019-09-25 12:39 | EKG ---
Test Reason : Blood Pressure : / mmHG Vent. Rate : 088 BPM Atrial Rate : 088 BPM P-R Int : 166 ms QRS Dur : 084 ms QT Int : 368 ms P-R-T Axes : 034 010 051 degrees QTc Int : 445 ms NORMAL SINUS RHYTHM POSSIBLE LEFT ATRIAL ENLARGEMENT POSSIBLE ANTERIOR INFARCT (CITED ON OR BEFORE 22-JUL-2019) ABNORMAL ECG WHEN COMPARED WITH ECG OF 13-SEP-2019 15:25, NO SIGNIFICANT CHANGE WAS FOUND Confirmed by SHANNAN MIRELES MD ([id number]) on 09/25/2019 12:39:00 PM Referred By: Confirmed By:SHANNAN MIRELES MD
--- NOTE | 2019-09-25 15:13 | PN ---
Teaching Attending Note Name of Resident: Toñito Quintana ATTENDING PHYSICIAN STATEMENT I saw and evaluated the patient. I reviewed the resident's note and discussed the case with the resident. I agree with the resident's findings and plan as documented. SUBJECTIVE: Feels comfortable, pain well controlled. No SOB/CP. No abdominal pain/diarrhea/nausea/vomiting. No complaints. OBJECTIVE: Afebrile, Hemodynamically Stable. Hematuria s/p Castellanos placement - improving. Slightly lethargic, oriented x 3. Pale++ Last Vital Signs Temp Pulse Resp BP Pulse Ox 97.9 F 87 18 122/70 96 09/25/19 14:31 09/25/19 14:31 09/25/19 14:31 09/25/19 14:31 09/25/19 09:00 HEET - Atraumatic, Normocephalic, Pale. Heart - S1, S2, RRR Lungs - decreased air entry at bases. R side portacath. Abdomen - Soft, non-tender. R sided -ostomy working, liquid stool. No hematochezia. Bowel Sounds normal. - Urine per castellanos blood tinged, improved from errol hematuria yesterday. L nephrostomy - no blood per nephrostomy. Extremities - mild edema, no calf tenderness. RUE erythema/edema improved. Neuro - AAO x 3. Tone/Power normal all extremities. Laboratory Results - last 24 hr 09/24/19 09/25/19 09/25/19 14:45 07:54 07:54 WBC 8.9 RBC 2.35 L Hgb 7.8 L Hct 23.1 L MCV 98.3 H MCH 33.3 MCHC 33.9 RDW 16.8 H Plt Count 181 MPV 8.0 Sodium 137 Potassium 5.6 H Chloride 102 Carbon Dioxide 25 Anion Gap 10 BUN 64.8 H Creatinine 5.2 H Est GFR (CKD-EPI)AfAm 8.82 Est GFR (CKD-EPI)NonAf 7.61 Random Glucose 116 H Calcium 8.7 Phosphorus Magnesium Total Bilirubin AST ALT Alkaline Phosphatase Total Protein Albumin Random Vancomycin 20.1 Blood Type Antibody Screen Crossmatch 09/25/19 09/25/19 07:54 07:54 WBC RBC Hgb Hct MCV MCH MCHC RDW Plt Count MPV Sodium 139 Potassium 4.9 Chloride 103 Carbon Dioxide 24 Anion Gap 12 BUN 66.2 H Creatinine 5.0 H Est GFR (CKD-EPI)AfAm 9.25 Est GFR (CKD-EPI)NonAf 7.98 Random Glucose 97 Calcium 8.6 Phosphorus 8.6 H Magnesium 2.0 Total Bilirubin 0.5 AST 44 H ALT 12 L Alkaline Phosphatase 135 H Total Protein 5.0 L Albumin 2.1 L Random Vancomycin Blood Type O POSITIVE Antibody Screen Negative Crossmatch See Detail Current Medications Generic Name Dose Route Start Last Admin Trade Name Freq PRN Reason Stop Dose Admin Acetaminophen 650 mg 09/23/19 13:24 Tylenol - PO Q6H PRN Fever Or Pain 1-3 Albuterol/Ipratropium 1 amp 09/23/19 14:00 09/25/19 14:22 Duoneb - NEB 1 amp RTID TRICIA Administration Artificial Tears 1 drop 09/23/19 13:24 Artificial Tears OU BID PRN DRY EYES Calcitonin 1 spray 09/24/19 10:00 09/25/19 09:04 Miacalcin [place] - NS 1 spray DAILY TRICIA Administration Carvedilol 3.125 mg 09/23/19 22:00 09/25/19 09:03 Coreg - PO 3.125 mg BID TRICIA Administration Cholecalciferol 3,000 unit 09/24/19 10:00 09/25/19 09:03 Vitamin D3 - PO 3,000 unit DAILY TRICIA Administration Fentanyl 25 mcg 09/23/19 14:29 Sublimaze Injection - IVPUSH [id number] PRN PAIN-PACU ORDER X 4 DOSES ONLY Ferrous Sulfate 325 mg 09/24/19 10:00 09/25/19 09:03 Feosol - PO 325 mg DAILY TRICIA Administration Piperacillin Sod/Tazobactam 50 mls @ 100 mls/hr 09/23/19 18:00 09/25/19 09:03 Sod 2.25 gm/ Dextrose IVPB 100 mls/hr Q8H-IV TRICIA Administration Protocol Sodium Chloride 1,000 mls @ 75 mls/hr 09/24/19 13:00 09/25/19 06:02 1/2 Normal Saline IV 75 mls/hr ASDIR TRICIA Administration Ondansetron HCl 4 mg 09/23/19 14:00 09/25/19 14:00 Zofran - PO 4 mg TID TRICIA Administration Ondansetron HCl 4 mg 09/23/19 14:29 Zofran Injection IVPUSH Q6H PRN NAUSEA AND/OR VOMITING Pregabalin 150 mg 09/23/19 22:00 09/25/19 09:03 Lyrica - PO 150 mg BID TRICIA Administration Tramadol HCl 100 mg 09/23/19 13:24 Ultram - PO Q6H PRN PAIN LEVEL 4 - 6 Home Medications Medication Instructions Recorded Calcium Citrate/Magnesium/D3 2 tab PO DAILY 05/08/17 [Calcium Citrate Chewable Wafer] Cholecalciferol (Vitamin D3) 3,000 unit PO DAILY 05/08/17 [Vitamin D3] Vitamin B Complex 1 each PO DAILY 05/08/17 Ferrous Sulfate [Feosol] 325 mg PO DAILY 01/15/18 Magnesium Citrate 800 mg PO DAILY 01/15/18 Cyclobenzaprine HCl 10 mg PO Q8H 09/13/19 Ondansetron HCl [Zofran] 4 mg PO Q8H 09/13/19 Tramadol HCl 50 mg PO Q8H 09/13/19 ASSESSMENT/PLAN: 73 year old female with history of Metastatic Breast Ca (bone, peritoneal cavity , stomach), s/p mastectomy, s/p small bowel resection/R colectomy/end ileostomy due to mets, last CTx 09/01/19, bilateral ureteral stents due to bilateral hydronephrosis due to compressive metastatic ca, presents with generalized weakness and upper body/torso spasm episode, lasting minutes, resolved spontaneously. She has history of spasm, on flexeril PRN. 1. Generalized weakness/Muscular Spasm - resolved Possible side-effects of chemotherapy and tumor burden/chronic disease. Poor appetite - nutrition consulted for diet recommendations. No further spasm episodes. Flexeril PRN. 2. ALEKSANDER NM Renal Scan positive for bilateral renal outlet obstruction Hx of bilateral hydronephrosis s/p ureteral stents, now with ALEKSANDER and worsening creatinine POD 2 s/p Cystoscopy with R ureteral stent exchange and L ureteral stent removal. Ongoing hematuria via castellanos (improving). POD 1 s/p L Nephrostomy by IR - dark transparent urine draining, no further blood per nephrostomy. Need for CBI discussed with Dr. Josue 09/24 - hold off pending Urology eval later today. Gentle IV hydration ongoing. Nephrology and Urology (Dr. Josue) following. 3. Cellulitis RUE - resolving Leukocytosis resolving. No DVT on US Duplex On Zosyn/Vanco as per ID - awaiting further recommendations and switch to oral Abx. 4. Acute Systolic CHF, etiology unclear ?sec to Chemotherpay EF 20%, bibasal effusions. Coreg started Lasix held currently in favor of gentle hydration. Monitor fluid/respiratory status. Cardiology following, recommend eventual hydralazine/nitrate 5. Metastatic Breast Ca (bone - C/L spine, ribs, femoral shafts, sacrum, peritoneal cavity), s/p mastectomy, last CTx 09/01/[address] Chest ?metastatic, no respiratory distress. s/p recent CTx s/p Neupogen Oncology following. 6. Compression Fracture L4 ?pathologic with significant stenosis L 3/4, L 4/5. Asymptomatic currently. Lyrica, Tramadol prn. Consider Neurosurgery eval as out-patient. 7. Acute on Chronic Anemia ? sec to CTx vs chronic disease vs marrow infiltration by tumor process + Acute Blood Loss ( source). Iron levels borderline. On Ferrous Sulfate. B12/Folate wnl. Hematuria ongoing but improving. H/H 7.8/23.1 - will transfuse 1 unit PRBCs. 8. Hyperkalemia sec to ALEKSANDER - resolved s/p Lokelma. DVT Px - hold Heparin SQ
--- NOTE | 2019-09-25 16:28 | PATH ---
Surgical Pathology Report Patient Name: NAPOLEON LIEBERMAN Med. Rec. #: [id number] /Age/Gender: 1945 (Age: 73) / F Account: [id number] Location: [address] [place] [address]/[facility] Taken: 09/23/2019 Received: 09/24/2019 Reported: 09/25/2019 Physicians: Jb Seth MD Specimen(s) Received A: RIGHT URETERAL STENT B: LEFT URETERAL STENT Clinical History Pelvic pain Final Diagnosis A. URETERAL STENT, RIGHT, REMOVAL: URETERAL STENT. MACROSCOPIC DIAGNOSIS. B. URETERAL STENT, LEFT, REMOVAL: URETERAL STENT. MACROSCOPIC DIAGNOSIS. Electronically Signed Zeinab London M.D. Gross Description A. Received fresh labeled "right ureteral stent," is a 34 cm in length pagan metallic wire, coiled portion of tubing, consistent with a ureteral stent. No soft tissue is present. No sections are submitted, gross only. B. Received fresh labeled "left ureteral stent," is a 34 cm in length suarez metallic wire, coiled portion of tubing, consistent with a ureteral stent. No soft tissue is present. No sections are submitted, gross only. DL/09/24/2019 saudi/09/24/2019
--- NOTE | 2019-09-25 16:39 | PN ---
Progress Note, Physician History of Present Illness: AWAKE IN BED NO C/O ABDOMINAL PAIN NO R UE PAIN AFEBRILE WBC IMPROVED WNL - Current Medication List Current Medications: Active Medications Acetaminophen (Tylenol -) 650 mg PO Q6H PRN PRN Reason: Fever Or Pain 1-3 Albuterol/Ipratropium (Duoneb -) 1 amp NEB RTID [facility] Last Admin: 09/25/19 14:22 Dose: 1 amp Artificial Tears (Artificial Tears) 1 drop OU BID PRN PRN Reason: DRY EYES Calcitonin (Miacalcin [place] -) 1 spray NS DAILY [facility] Last Admin: 09/25/19 09:04 Dose: 1 spray Carvedilol (Coreg -) 3.125 mg PO BID [facility] Last Admin: 09/25/19 09:03 Dose: 3.125 mg Cholecalciferol (Vitamin D3 -) 3,000 unit PO DAILY [facility] Last Admin: 09/25/19 09:03 Dose: 3,000 unit Fentanyl (Sublimaze Injection -) 25 mcg IVPUSH [id number] PRN PRN Reason: PAIN-PACU ORDER X 4 DOSES ONLY Ferrous Sulfate (Feosol -) 325 mg PO DAILY [facility] Last Admin: 09/25/19 09:03 Dose: 325 mg Sodium Chloride (1/2 Normal Saline) 1,000 mls @ 75 mls/hr IV ASDIR [facility] Last Admin: 09/25/19 06:02 Dose: 75 mls/hr Ondansetron HCl (Zofran -) 4 mg PO TID [facility] Last Admin: 09/25/19 14:00 Dose: 4 mg Ondansetron HCl (Zofran Injection) 4 mg IVPUSH Q6H PRN PRN Reason: NAUSEA AND/OR VOMITING Pregabalin (Lyrica -) 150 mg PO BID [facility] Last Admin: 09/25/19 09:03 Dose: 150 mg Tramadol HCl (Ultram -) 100 mg PO Q6H PRN PRN Reason: PAIN LEVEL 4 - 6 - Objective Vital Signs: Vital Signs Temperature 97.9 F 09/25/19 14:31 Pulse Rate 87 09/25/19 14:31 Respiratory Rate 18 09/25/19 14:31 Blood Pressure 122/70 09/25/19 14:31 O2 Sat by Pulse Oximetry (%) 96 09/25/19 09:00 Constitutional: Yes: No Distress Eyes: Yes: Conjunctiva Clear Cardiovascular: Yes: Regular Rate and Rhythm, S1, S2 Respiratory: Yes: CTA Bilaterally Gastrointestinal: Yes: Normal Bowel Sounds, Soft, Other (+ OSTOMY). No: Tenderness Extremities: Yes: Other (MINIMAL RESIDUAL ERYTHEMA/ WARMTH R UE) Labs: CBC, BMP 09/25/19 07:54 09/25/19 07:54 INR, PTT INR 1.01 (0.83-1.09) 09/13/19 14:40 Assessment/Plan R UE CELLULITIS IMPROVED COLITIS METASTATIC CA SUBSTITUTE KEFLEX 500MG PO QD X7D
[2019-09-25 17:48] LABS: HEMATOCRIT 28.2 % (32.4-45.2); HEMOGLOBIN 9.5 GM/dL (10.7-15.3); MCH 32.9 pg (25.7-33.7); MCHC 33.6 g/dl (32.0-36.0); MEAN CELL VOLUME 97.9 fl (80-96); MEAN PLT VOLUME 8.4 fl (7.5-11.1); PLATELET COUNT 195 K/MM3 (134-434); RBC 2.88 M/mm3 (3.60-5.2); RDW 16.6 % (11.6-15.6); WHITE BLOOD COUNT 10.6 K/mm3 (4.0-10.0)
[2019-09-25] MEDS: CEPHALEXIN MONOHYDRATE 500 MG CAPSULE (UD) PO SCH (17:58)
[2019-09-25 18:07] LABS: BLOOD UREA NITROGEN 64.6 mg/dL (7-18); CALCIUM 8.4 mg/dL (8.5-10.1); CREATININE 4.9 mg/dL (0.55-1.3); POTASSIUM 4.9 mmol/L (3.5-5.1)
--- NOTE | 2019-09-25 18:50 | PN ---
Progress Note, Physician History of Present Illness: Pt seen and examined at bedside. She is awake and alert. She denies shortness of breath. She is s/p left nephrostomy. - Current Medication List Current Medications: Active Medications Acetaminophen (Tylenol -) 650 mg PO Q6H PRN PRN Reason: Fever Or Pain 1-3 Albuterol/Ipratropium (Duoneb -) 1 amp NEB RTID [facility] Last Admin: 09/25/19 14:22 Dose: 1 amp Artificial Tears (Artificial Tears) 1 drop OU BID PRN PRN Reason: DRY EYES Calcitonin (Miacalcin Dalbo -) 1 spray NS DAILY [facility] Last Admin: 09/25/19 09:04 Dose: 1 spray Carvedilol (Coreg -) 3.125 mg PO BID [facility] Last Admin: 09/25/19 09:03 Dose: 3.125 mg Cephalexin HCl (Keflex -) 500 mg PO DAILY [facility] Last Admin: 09/25/19 17:58 Dose: 500 mg Cholecalciferol (Vitamin D3 -) 3,000 unit PO DAILY [facility] Last Admin: 09/25/19 09:03 Dose: 3,000 unit Fentanyl (Sublimaze Injection -) 25 mcg IVPUSH [id number] PRN PRN Reason: PAIN-PACU ORDER X 4 DOSES ONLY Ferrous Sulfate (Feosol -) 325 mg PO DAILY [facility] Last Admin: 09/25/19 09:03 Dose: 325 mg Sodium Chloride (1/2 Normal Saline) 1,000 mls @ 75 mls/hr IV ASDIR [facility] Last Admin: 09/25/19 17:58 Dose: 75 mls/hr Ondansetron HCl (Zofran -) 4 mg PO TID [facility] Last Admin: 09/25/19 14:00 Dose: 4 mg Ondansetron HCl (Zofran Injection) 4 mg IVPUSH Q6H PRN PRN Reason: NAUSEA AND/OR VOMITING Pregabalin (Lyrica -) 150 mg PO BID [facility] Last Admin: 09/25/19 09:03 Dose: 150 mg Tramadol HCl (Ultram -) 100 mg PO Q6H PRN PRN Reason: PAIN LEVEL 4 - 6 - Objective Vital Signs: Vital Signs Temperature 97.9 F 09/25/19 14:31 Pulse Rate 87 09/25/19 14:31 Respiratory Rate 18 09/25/19 14:31 Blood Pressure 122/70 09/25/19 14:31 O2 Sat by Pulse Oximetry (%) 96 09/25/19 09:00 Constitutional: Yes: Calm Eyes: Yes: Conjunctiva Clear HENT: Yes: Atraumatic Neck: Yes: Supple Cardiovascular: Yes: S1, S2 Respiratory: Yes: CTA Bilaterally Gastrointestinal: Yes: Soft Genitourinary: Yes: Bahena Present, Other (left pyelo) Musculoskeletal: Yes: WNL Edema: No Integumentary: Yes: WNL Neurological: Yes: Oriented Psychiatric: Yes: Oriented Labs: CBC, BMP 09/25/19 16:20 09/25/19 16:20 INR, PTT INR 1.01 (0.83-1.09) 09/13/19 14:40 Assessment/Plan Current Medications Generic Name Dose Route Start Last Admin Trade Name Freq PRN Reason Stop Dose Admin Acetaminophen 650 mg 09/23/19 13:24 Tylenol - PO Q6H PRN Fever Or Pain 1-3 Albuterol/Ipratropium 1 amp 09/23/19 14:00 09/25/19 14:22 Duoneb - NEB 1 amp RTID [facility] Administration Artificial Tears 1 drop 09/23/19 13:24 Artificial Tears OU BID PRN DRY EYES Calcitonin 1 spray 09/24/19 10:00 09/25/19 09:04 Miacalcin Dalbo - NS 1 spray DAILY [facility] Administration Carvedilol 3.125 mg 09/23/19 22:00 09/25/19 09:03 Coreg - PO 3.125 mg BID [facility] Administration Cephalexin HCl 500 mg 09/25/19 16:45 09/25/19 17:58 Keflex - PO 500 mg DAILY [facility] Administration Cholecalciferol 3,000 unit 09/24/19 10:00 09/25/19 09:03 Vitamin D3 - PO 3,000 unit DAILY [facility] Administration Fentanyl 25 mcg 09/23/19 14:29 Sublimaze Injection - IVPUSH [id number] PRN PAIN-PACU ORDER X 4 DOSES ONLY Ferrous Sulfate 325 mg 09/24/19 10:00 09/25/19 09:03 Feosol - PO 325 mg DAILY [facility] Administration Sodium Chloride 1,000 mls @ 75 mls/hr 09/24/19 13:00 09/25/19 17:58 1/2 Normal Saline IV 75 mls/hr ASDIR [facility] Administration Ondansetron HCl 4 mg 09/23/19 14:00 09/25/19 14:00 Zofran - PO 4 mg TID [facility] Administration Ondansetron HCl 4 mg 09/23/19 14:29 Zofran Injection IVPUSH Q6H PRN NAUSEA AND/OR VOMITING Pregabalin 150 mg 09/23/19 22:00 09/25/19 09:03 Lyrica - PO 150 mg BID [facility] Administration Tramadol HCl 100 mg 09/23/19 13:24 Ultram - PO Q6H PRN PAIN LEVEL 4 - 6 Impression 1. CKD 2. leukopenia 3. obstructive uropathy with bilateral hydro 4. breast cancer with mets 5. HTN 6. hyperlipidemia 7. anemia 8. ALEKSANDER 9. CHF Plan - renal function is improving - monitor urine output - potassium improved - cont fluids - repeat labs in am - avoid nsaids Dr Land
[2019-09-26] MEDS: SODIUM CHLORIDE 0.45% 1,000 ML IV SCH (03:26)
[2019-09-26] MEDS: ONDANSETRON 4 MG TABLET PO SCH ×3 (06:26→21:56)
--- NOTE | 2019-09-26 07:26 | PN ---
Progress Note, Physician Chief Complaint: Pt alert; no abdominal or chest pain. History of Present Illness: 73 y/o white woman with pmh of Breast cancer stage 3A w/ mets to the spine, peritoneal cavity, colon, and spine, currently off chemoRx with Navelbine, s/p right mastectomy, s/p radiation Rx; bilateral hydronephrosis, s/p fariha ureteral stents; "CHF", now admitted with c/o of weakness of 1-2 weeks duration and abdominal cramping of 1 day duration. She reports that 2 weeks ago she came off chemotherapy under Dr. Edward's supervision and had a CAT scan completed showing R>L effusion. She also reports that she has never needed a walker, but has started to use one since her weakness began. She has been on and off chemo for 2 years now. She reports ALCOCER when walking fast, and bilateral LE edema, but denies LOC, dizziness, head trauma, palpitations, vertigo, tinnitus, chest pain , shortness of breath, orthopnea, PND. - Current Medication List Current Medications: Active Medications Acetaminophen (Tylenol -) 650 mg PO Q6H PRN PRN Reason: Fever Or Pain 1-3 Albuterol/Ipratropium (Duoneb -) 1 amp NEB RTID [facility] Last Admin: 09/25/19 20:13 Dose: 1 amp Artificial Tears (Artificial Tears) 1 drop OU BID PRN PRN Reason: DRY EYES Calcitonin (Miacalcin Channing -) 1 spray NS DAILY [facility] Last Admin: 09/25/19 09:04 Dose: 1 spray Carvedilol (Coreg -) 3.125 mg PO BID [facility] Last Admin: 09/25/19 22:15 Dose: 3.125 mg Cephalexin HCl (Keflex -) 500 mg PO DAILY [facility] Last Admin: 09/25/19 17:58 Dose: 500 mg Cholecalciferol (Vitamin D3 -) 3,000 unit PO DAILY [facility] Last Admin: 09/25/19 09:03 Dose: 3,000 unit Fentanyl (Sublimaze Injection -) 25 mcg IVPUSH [id number] PRN PRN Reason: PAIN-PACU ORDER X 4 DOSES ONLY Ferrous Sulfate (Feosol -) 325 mg PO DAILY [facility] Last Admin: 09/25/19 09:03 Dose: 325 mg Sodium Chloride (1/2 Normal Saline) 1,000 mls @ 75 mls/hr IV ASDIR [facility] Last Admin: 09/26/19 03:26 Dose: 75 mls/hr Ondansetron HCl (Zofran -) 4 mg PO TID [facility] Last Admin: 09/26/19 06:26 Dose: 4 mg Ondansetron HCl (Zofran Injection) 4 mg IVPUSH Q6H PRN PRN Reason: NAUSEA AND/OR VOMITING Pregabalin (Lyrica -) 150 mg PO BID [facility] Last Admin: 09/25/19 22:15 Dose: 150 mg Tramadol HCl (Ultram -) 100 mg PO Q6H PRN PRN Reason: PAIN LEVEL 4 - 6 - Objective Vital Signs: Vital Signs Temperature 98.2 F 09/26/19 05:50 Pulse Rate 93 H 09/26/19 05:50 Respiratory Rate 09/26/19 05:50 Blood Pressure 113/66 09/26/19 05:50 O2 Sat by Pulse Oximetry (%) 96 09/25/19 21:00 Constitutional: Yes: Calm Eyes: Yes: WNL HENT: Yes: WNL Neck: Yes: WNL Cardiovascular: Yes: Regular Rate and Rhythm Respiratory: Yes: Regular Gastrointestinal: Yes: Soft, Other (colostomy site without bleed/exudate) Genitourinary: Yes: Bahena Present, Other (ureteral stents) Edema: No Peripheral Pulses WNL: Yes Integumentary: Yes: WNL Neurological: Yes: Alert, Weakness Psychiatric: Yes: Alert Labs: CBC, BMP 09/25/19 16:20 09/25/19 16:20 INR, PTT INR 1.01 (0.83-1.09) 09/13/19 14:40 Abnormal Lab Results 09/26/19 09/26/19 11:00 11:00 WBC 17.0 H RBC 3.44 L MCV 96.7 H RDW 17.0 H Sodium 135 L BUN 62.9 H Creatinine 4.6 H Random Glucose 130 H AST 48 H Alkaline Phosphatase 158 H Total Protein 5.8 L Albumin 2.4 L Problem List - Problems (1) Acute on chronic systolic (congestive) heart failure Assessment/Plan: Severely reduced LVEF; minimal-mild aortic stenosis (may be underestimated due to poor LVEF). On carvedilol. Progressive renal dysfunction precludes use of Entresto, ACEI, ARB, or spironolactone at this time. Consider hydralazine + nitrate. F/u BUN/Cr, electrolytes, daily weight, Is and Os. (now s/p cystoscopy and renal stent change). Code(s): I50.23 - ACUTE ON CHRONIC SYSTOLIC (CONGESTIVE) HEART FAILURE (2) Anemia Code(s): D64.9 - ANEMIA, UNSPECIFIED (3) 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 (4) Leukocytosis Code(s): D72.829 - ELEVATED WHITE BLOOD CELL COUNT, UNSPECIFIED Qualifiers: Leukocytosis type: unspecified Qualified Code(s): D72.829 - Elevated white blood cell count, unspecified (5) Renal dysfunction Code(s): N28.9 - DISORDER OF KIDNEY AND URETER, UNSPECIFIED
[2019-09-26] MEDS: ALBUTEROL SO4 2.5/IPRATROPIUM 0.5 INH SOL 3 ML VIAL.NEB. NEB SCH ×3 (07:40→19:30)
[2019-09-26] MEDS: CALCITONIN - SALMON SYNTHETIC 200 UNITS/SPRAY NS SCH (09:11)
[2019-09-26] MEDS: CEPHALEXIN MONOHYDRATE 500 MG CAPSULE (UD) PO SCH (09:11)
[2019-09-26] MEDS: FERROUS SO4 325 MG TABLET (FP) PO SCH (09:11)
[2019-09-26] MEDS: CHOLECALCIFEROL (VIT D3) 1,000 UNIT (25 MCG) TABLET PO SCH (09:11)
[2019-09-26] MEDS: CARVEDILOL 3.125 MG TABLET (FP) PO SCH ×2 (09:11→21:56)
[2019-09-26] MEDS: PREGABALIN 75 MG CAPSULE PO SCH (09:11)
[2019-09-26 11:15] LABS: HEMATOCRIT 33.3 % (32.4-45.2); HEMOGLOBIN 11.2 GM/dL (10.7-15.3); MCH 32.5 pg (25.7-33.7); MCHC 33.6 g/dl (32.0-36.0); MEAN CELL VOLUME 96.7 fl (80-96); MEAN PLT VOLUME 7.8 fl (7.5-11.1); PLATELET COUNT 249 K/MM3 (134-434); RBC 3.44 M/mm3 (3.60-5.2)
[2019-09-26 11:49] LABS: ALBUMIN 2.4 g/dl (3.4-5.0); BILIRUBIN,TOTAL 0.5 mg/dL (0.2-1); BLOOD UREA NITROGEN 62.9 mg/dL (7-18); CALCIUM 8.5 mg/dL (8.5-10.1); CREATININE 4.6 mg/dL (0.55-1.3); TOT PROT 5.8 g/dl (6.4-8.2)
--- NOTE | 2019-09-26 14:28 | PN ---
Teaching Attending Note Name of Resident: Toñito Quintana ATTENDING PHYSICIAN STATEMENT I saw and evaluated the patient. I reviewed the resident's note and discussed the case with the resident. I agree with the resident's findings and plan as documented. SUBJECTIVE: Feels comfortable, pain well controlled. No SOB/CP. No abdominal pain/diarrhea/nausea/vomiting. No complaints. OBJECTIVE: Afebrile, Hemodynamically Stable. Hematuria s/p Castellanos placement - ongoing. More awake and alert today, sitting up in chair. Oriented x 3. Pale++ Last Vital Signs Temp Pulse Resp BP Pulse Ox 98.5 F 98 H 20 100/62 95 09/26/19 10:00 09/26/19 10:00 09/26/19 10:00 09/26/19 10:00 09/26/19 10:00 Heart - S1, S2, RRR Lungs - decreased air entry at bases. R side portacath. Abdomen - Soft, non-tender. Mild distension. R sided -ostomy working, liquid stool. No hematochezia. Bowel Sounds normal. - Urine per castellanos bloody. L nephrostomy - no blood per nephrostomy. Extremities - mild edema, no calf tenderness. RUE erythema/edema improved. Neuro - AAO x 3. Tone/Power normal all extremities. Laboratory Results - last 24 hr 09/25/19 09/25/19 09/26/19 16:20 16:20 11:00 WBC 10.6 H 17.0 H RBC 2.88 L 3.44 L Hgb 9.5 L 11.2 Hct 28.2 L D 33.3 D MCV 97.9 H 96.7 H MCH 32.9 32.5 MCHC 33.6 33.6 RDW 16.6 H 17.0 H Plt Count 195 249 D MPV 8.4 7.8 Sodium 140 Potassium 4.9 Chloride 102 Carbon Dioxide 26 Anion Gap 12 BUN 64.6 H Creatinine 4.9 H Est GFR (CKD-EPI)AfAm 9.48 Est GFR (CKD-EPI)NonAf 8.18 Random Glucose 128 H Calcium 8.4 L Total Bilirubin AST ALT Alkaline Phosphatase Total Protein Albumin 09/26/19 11:00 WBC RBC Hgb Hct MCV MCH MCHC RDW Plt Count MPV Sodium 135 L Potassium 5.0 Chloride 102 Carbon Dioxide 23 Anion Gap 11 BUN 62.9 H Creatinine 4.6 H Est GFR (CKD-EPI)AfAm 10.23 Est GFR (CKD-EPI)NonAf 8.82 Random Glucose 130 H Calcium 8.5 Total Bilirubin 0.5 AST 48 H ALT 13 Alkaline Phosphatase 158 H Total Protein 5.8 L Albumin 2.4 L Current Medications Generic Name Dose Route Start Last Admin Trade Name Freq PRN Reason Stop Dose Admin Acetaminophen 650 mg 09/23/19 13:24 Tylenol - PO Q6H PRN Fever Or Pain 1-3 Albuterol/Ipratropium 1 amp 09/23/19 14:00 09/26/19 07:40 Duoneb - NEB 1 amp RTID [facility] Administration Artificial Tears 1 drop 09/23/19 13:24 Artificial Tears OU BID PRN DRY EYES Calcitonin 1 spray 09/24/19 10:00 09/26/19 09:11 Miacalcin Morven - NS 1 spray DAILY [facility] Administration Carvedilol 3.125 mg 09/23/19 22:00 09/26/19 09:11 Coreg - PO 3.125 mg BID [facility] Administration Cephalexin HCl 500 mg 09/25/19 16:45 09/26/19 09:11 Keflex - PO 500 mg DAILY [facility] Administration Cholecalciferol 3,000 unit 09/24/19 10:00 09/26/19 09:11 Vitamin D3 - PO 3,000 unit DAILY [facility] Administration Fentanyl 25 mcg 09/23/19 14:29 Sublimaze Injection - IVPUSH [id number] PRN PAIN-PACU ORDER X 4 DOSES ONLY Ferrous Sulfate 325 mg 09/24/19 10:00 09/26/19 09:11 Feosol - PO 325 mg DAILY [facility] Administration Sodium Chloride 1,000 mls @ 75 mls/hr 09/24/19 13:00 09/26/19 03:26 1/2 Normal Saline IV 75 mls/hr ASDIR [facility] Administration Ondansetron HCl 4 mg 09/23/19 14:00 09/26/19 13:42 Zofran - PO 4 mg TID [facility] Administration Ondansetron HCl 4 mg 09/23/19 14:29 Zofran Injection IVPUSH Q6H PRN NAUSEA AND/OR VOMITING Pregabalin 150 mg 09/23/19 22:00 09/26/19 09:11 Lyrica - PO 150 mg BID [facility] Administration Home Medications Medication Instructions Recorded Calcium Citrate/Magnesium/D3 2 tab PO DAILY 05/08/17 [Calcium Citrate Chewable Wafer] Cholecalciferol (Vitamin D3) 3,000 unit PO DAILY 05/08/17 [Vitamin D3] Vitamin B Complex 1 each PO DAILY 05/08/17 Ferrous Sulfate [Feosol] 325 mg PO DAILY 01/15/18 Magnesium Citrate 800 mg PO DAILY 01/15/18 Cyclobenzaprine HCl 10 mg PO Q8H 09/13/19 Ondansetron HCl [Zofran] 4 mg PO Q8H 09/13/19 Tramadol HCl 50 mg PO Q8H 09/13/19 ASSESSMENT/PLAN: 73 year old female with history of Metastatic Breast Ca (bone, peritoneal cavity , stomach), s/p mastectomy, s/p small bowel resection/R colectomy/end ileostomy due to mets, last CTx 09/01/19, bilateral ureteral stents due to bilateral hydronephrosis due to compressive metastatic ca, presents with generalized weakness and upper body/torso spasm episode, lasting minutes, resolved spontaneously. She has history of spasm, on flexeril PRN. 1. Generalized weakness/Muscular Spasm - resolved Possible side-effects of chemotherapy and tumor burden/chronic disease. Poor appetite - nutrition consulted for diet recommendations. No further spasm episodes. Flexeril PRN. 2. ALEKSANDER - mild improvement in BUN/Creat, now 6.3.9/4.6 NM Renal Scan positive for bilateral renal outlet obstruction Hx of bilateral hydronephrosis s/p ureteral stents, now with ALEKSANDER and worsening creatinine POD 3 s/p Cystoscopy with R ureteral stent exchange and L ureteral stent removal. Ongoing hematuria via castellanos (improving). POD 2 s/p L Nephrostomy by IR - clear urine draining, no further blood per nephrostomy. Need for CBI discussed with Dr. Josue 09/24 - hold off pending further Urology eval. Nephrology and Urology (Dr. Josue) following. 3. Cellulitis RUE - resolving Leukocytosis resolving. No DVT on US Duplex Received course of Zosyn/Vanco as per ID - now transitioned to oral Keflex. 4. Leukocytosis, worsening. Afebrile, hemodynamically stable. Stool to be sent for repeat Cdiff. If any fever, will tyson-culture. ID following. 5. Systolic CHF, etiology unclear ?sec to Chemotherapy EF 20%, bibasal effusions. Coreg started Lasix held currently in favor of gentle hydration. Monitor fluid/respiratory status. Cardiology following, recommend eventual hydralazine/nitrate 6. Metastatic Breast Ca (bone - C/L spine, ribs, femoral shafts, sacrum, peritoneal cavity), s/p mastectomy, last CTx 09/01/[address] Chest ?metastatic, no respiratory distress. s/p recent CTx s/p Neupogen Oncology following - would appreciate plan for further treatment versus palliation ? goals of oncology management. Will consult Palliative Care. 7. Compression Fracture L4 ?pathologic with significant stenosis L 3/4, L 4/5. Asymptomatic currently. Lyrica, Tramadol prn. Consider Neurosurgery eval as out-patient. 8. Acute on Chronic Anemia ? sec to CTx vs chronic disease vs marrow infiltration by tumor process + Acute Blood Loss ( source). Iron levels borderline. On Ferrous Sulfate. B12/Folate wnl. Hematuria ongoing. H/H 9.5/28.2 s/p 1 unit PRBCs. Will monitor. 8. Hyperkalemia sec to ALEKSANDER - resolved s/p Lokelma. DVT Px - hold Heparin SQ
--- NOTE | 2019-09-26 16:44 | PN ---
Progress Note (short form) - Note Progress Note: S/P right ureteral stent change and left PCN placement urine is blood tinged. creatinine is still elevated, consider ATN Problem List - Problems (1) Hydronephrosis Code(s): N13.30 - UNSPECIFIED HYDRONEPHROSIS Qualifiers: Qualified Code(s): N13.30 - Unspecified hydronephrosis
--- NOTE | 2019-09-26 16:48 | PN ---
Physical Exam: SUBJECTIVE: Patient seen and examined. Now pt appears much more improved. Mentation improved. Afebrile and symptomatic today. Nephrostomy bag draining normal yellow urine. Bahena still blood tinged but much more improved. Denies f/c /n/v/d/sob, chest pain. OBJECTIVE: Vital Signs Period Temp Pulse Resp BP Sys/Avila Pulse Ox Last 24 Hr 98.2 F-98.7 F 93-99 20-20 100-114/56-66 95-96 GENERAL: The patient is awake, alert. Pt is much improved today. No longer pale. EYES: PERRL, extraocular movements intact, sclera anicteric, conjunctiva clear. ENT: oropharynx clear without exudates, moist mucous membranes. NECK: Trachea midline, full range of motion, supple. LUNGS: Breath sounds equal, clear to auscultation bilaterally, no wheezes, no crackles, HEART: Regular rate and rhythm, S1, S2 without murmur, rub or gallop. ABDOMEN: Soft, nontender, nondistended, normoactive bowel sounds, no guarding, Colostomy bag on the right- draining bilious watery loose stool. Left nephrostomy tube in place- draining normal colored urine. Bahena draining blood tinged urine but improved from before. EXTREMITIES: 2+ pulses, warm, well-perfused, no edema. NEUROLOGICAL: Cranial nerves II through XII grossly intact. Normal speech PSYCH: Normal mood, normal affect. Laboratory Results - last 24 hr 09/25/19 09/25/19 09/26/19 16:20 16:20 11:00 WBC 10.6 H 17.0 H RBC 2.88 L 3.44 L Hgb 9.5 L 11.2 Hct 28.2 L D 33.3 D MCV 97.9 H 96.7 H MCH 32.9 32.5 MCHC 33.6 33.6 RDW 16.6 H 17.0 H Plt Count 195 249 D MPV 8.4 7.8 Sodium 140 Potassium 4.9 Chloride 102 Carbon Dioxide 26 Anion Gap 12 BUN 64.6 H Creatinine 4.9 H Est GFR (CKD-EPI)AfAm 9.48 Est GFR (CKD-EPI)NonAf 8.18 Random Glucose 128 H Calcium 8.4 L Total Bilirubin AST ALT Alkaline Phosphatase Total Protein Albumin Active Medications Generic Name Dose Route Start Last Admin Trade Name Freq PRN Reason Stop Dose Admin Acetaminophen 650 mg 09/23/19 13:24 Tylenol - PO Q6H PRN Fever Or Pain 1-3 Albuterol/Ipratropium 1 amp 09/23/19 14:00 09/26/19 14:10 Duoneb - NEB 1 amp RTID [facility] Administration Artificial Tears 1 drop 09/23/19 13:24 Artificial Tears OU BID PRN DRY EYES Calcitonin 1 spray 09/24/19 10:00 09/26/19 09:11 Miacalcin Dubberly - NS 1 spray DAILY [facility] Administration Carvedilol 3.125 mg 09/23/19 22:00 09/26/19 09:11 Coreg - PO 3.125 mg BID [facility] Administration Cephalexin HCl 500 mg 09/25/19 16:45 09/26/19 09:11 Keflex - PO 500 mg DAILY [facility] Administration Cholecalciferol 3,000 unit 09/24/19 10:00 09/26/19 09:11 Vitamin D3 - PO 3,000 unit DAILY [facility] Administration Fentanyl 25 mcg 09/23/19 14:29 Sublimaze Injection - IVPUSH [id number] PRN PAIN-PACU ORDER X 4 DOSES ONLY Ferrous Sulfate 325 mg 09/24/19 10:00 09/26/19 09:11 Feosol - PO 325 mg DAILY [facility] Administration Sodium Chloride 1,000 mls @ 75 mls/hr 09/24/19 13:00 09/26/19 03:26 1/2 Normal Saline IV 75 mls/hr ASDIR [facility] Administration Ondansetron HCl 4 mg 09/23/19 14:00 09/26/19 13:42 Zofran - PO 4 mg TID [facility] Administration Ondansetron HCl 4 mg 09/23/19 14:29 Zofran Injection IVPUSH Q6H PRN NAUSEA AND/OR VOMITING Pregabalin 150 mg 09/23/19 22:00 09/26/19 09:11 Lyrica - PO 150 mg BID [facility] Administration ASSESSMENT/PLAN: 73 y/o F, pmh of Breast cancer stage 3A w/ mets to the spine, peritoneal cavity , colon, spine, s/p right mastectomy, s/p radiation, b/l ureteral stents w/ b/l hydro, mild b/l pleural effusion, presents c/o of weakness of 1-2 weeks duration and abdominal cramping of 1 day duration #ALEKSANDER, elevated Cre b/l hydronephrosis s/p ureteral stents F/u w/ Uro and Heme/onc Renal following Discussed with pts family about pt's status and explained her current medical problems. Family and pt verified understanding. #Leukocytosis new White count of 17, likely hemoconcentration vs dehydration, r/o infxn cont abx ID following #New Systolic CHF cause unknown as ECHO in 2018 was normal Likely adverse effect of Navelbine/chemo vs metastatic disease carvedolol 3.125 BID Progressive renal dysfunction precludes use of Entresto, ACEI, ARB, or spironolactone at this time. Consider hydralazine + nitrate after pt's renal function as stabilized EKG NSR, possible LAE #Hyperkalemia Potassium 5 today, down trending #Macrocytic Anemia ? sec to CTx vs chronic disease vs marrow infiltration by tumor process. Hb 11.2, improved Ferrous sulfate #Right forearm Cellulitis Abx switched to PO keflex WBC 17 now, will need to monitor LE MRI ordered by heme/onc- pending #Right pelvic mass US bladder- cystic mass like density right hemipelvis- irregular mass like density if its anterior wall. #Abdominal cramping/Generalized spasm likely 2/2 to dehydration 2/2 Failure to thrive vs Navelbine adverse effect now resolved Waiting for neurosurgery consult- Dr. Acosta- attempted to reach, discussed with plastics repairer for call back Flexeril prn Diet regular IVF 1/2 NS #Decreased mood likely 2/2 to cancer dx Will children's counselor and consider antidepressants if needed #DVTppx hep sq TID FEN monitor lytes Regular diet 1/2 NS Dispo: cont Abx, f/u w/ neuro, f/u with cardio, f/u nephro, f/u Labs Visit type - Emergency Visit Emergency Visit: Yes ED Registration Date: 09/17/19 Care time: The patient presented to the Emergency Department on the above date and was hospitalized for further evaluation of their emergent condition. - New Patient This patient is new to me today: Yes Date on this admission: 09/29/19 - Critical Care Critical Care patient: No - Discharge Referral Referred to [facility] Med [facility] No ATTENDING PHYSICIAN STATEMENT I saw and evaluated the patient. I reviewed the resident's note and discussed the case with the resident. I agree with the resident's findings and plan as documented. SUBJECTIVE: OBJECTIVE: ASSESSMENT AND PLAN:
--- NOTE | 2019-09-26 17:12 | PN ---
Progress Note, Physician History of Present Illness: Pt seen and examined at bedside. She is awake and alert. She is making urine. - Current Medication List Current Medications: Active Medications Acetaminophen (Tylenol -) 650 mg PO Q6H PRN PRN Reason: Fever Or Pain 1-3 Albuterol/Ipratropium (Duoneb -) 1 amp NEB RTID [facility] Last Admin: 09/26/19 14:10 Dose: 1 amp Artificial Tears (Artificial Tears) 1 drop OU BID PRN PRN Reason: DRY EYES Calcitonin (Miacalcin [place] -) 1 spray NS DAILY [facility] Last Admin: 09/26/19 09:11 Dose: 1 spray Carvedilol (Coreg -) 3.125 mg PO BID [facility] Last Admin: 09/26/19 09:11 Dose: 3.125 mg Cephalexin HCl (Keflex -) 500 mg PO DAILY [facility] Last Admin: 09/26/19 09:11 Dose: 500 mg Cholecalciferol (Vitamin D3 -) 3,000 unit PO DAILY [facility] Last Admin: 09/26/19 09:11 Dose: 3,000 unit Fentanyl (Sublimaze Injection -) 25 mcg IVPUSH [id number] PRN PRN Reason: PAIN-PACU ORDER X 4 DOSES ONLY Ferrous Sulfate (Feosol -) 325 mg PO DAILY [facility] Last Admin: 09/26/19 09:11 Dose: 325 mg Sodium Chloride (1/2 Normal Saline) 1,000 mls @ 75 mls/hr IV ASDIR [facility] Last Admin: 09/26/19 03:26 Dose: 75 mls/hr Ondansetron HCl (Zofran -) 4 mg PO TID [facility] Last Admin: 09/26/19 13:42 Dose: 4 mg Ondansetron HCl (Zofran Injection) 4 mg IVPUSH Q6H PRN PRN Reason: NAUSEA AND/OR VOMITING Pregabalin (Lyrica -) 150 mg PO BID [facility] Last Admin: 09/26/19 09:11 Dose: 150 mg - Objective Vital Signs: Vital Signs Temperature 98.7 F 09/26/19 14:54 Pulse Rate 99 H 09/26/19 14:54 Respiratory Rate 20 09/26/19 14:54 Blood Pressure 113/56 L 09/26/19 14:54 O2 Sat by Pulse Oximetry (%) 95 09/26/19 10:00 Constitutional: Yes: Calm Eyes: Yes: Conjunctiva Clear HENT: Yes: Atraumatic Neck: Yes: Supple Cardiovascular: Yes: S1, S2 Respiratory: Yes: CTA Bilaterally Gastrointestinal: Yes: Soft Genitourinary: Yes: [place] Present, Hematuria, Other (left nephrostomy) Musculoskeletal: Yes: WNL Edema: No Neurological: Yes: Oriented Psychiatric: Yes: Oriented Labs: CBC, BMP 09/26/19 11:00 09/26/19 11:00 INR, PTT INR 1.01 (0.83-1.09) 09/13/19 14:40 Assessment/Plan Current Medications Generic Name Dose Route Start Last Admin Trade Name Freq PRN Reason Stop Dose Admin Acetaminophen 650 mg 09/23/19 13:24 Tylenol - PO Q6H PRN Fever Or Pain 1-3 Albuterol/Ipratropium 1 amp 09/23/19 14:00 09/26/19 14:10 Duoneb - NEB 1 amp RTID [facility] Administration Artificial Tears 1 drop 09/23/19 13:24 Artificial Tears OU BID PRN DRY EYES Calcitonin 1 spray 09/24/19 10:00 09/26/19 09:11 Miacalcin [place] - NS 1 spray DAILY [facility] Administration Carvedilol 3.125 mg 09/23/19 22:00 09/26/19 09:11 Coreg - PO 3.125 mg BID [facility] Administration Cephalexin HCl 500 mg 09/25/19 16:45 09/26/19 09:11 Keflex - PO 500 mg DAILY [facility] Administration Cholecalciferol 3,000 unit 09/24/19 10:00 09/26/19 09:11 Vitamin D3 - PO 3,000 unit DAILY [facility] Administration Fentanyl 25 mcg 09/23/19 14:29 Sublimaze Injection - IVPUSH [id number] PRN PAIN-PACU ORDER X 4 DOSES ONLY Ferrous Sulfate 325 mg 09/24/19 10:00 09/26/19 09:11 Feosol - PO 325 mg DAILY [facility] Administration Sodium Chloride 1,000 mls @ 75 mls/hr 09/24/19 13:00 09/26/19 03:26 1/2 Normal Saline IV 75 mls/hr ASDIR [facility] Administration Ondansetron HCl 4 mg 09/23/19 14:00 09/26/19 13:42 Zofran - PO 4 mg TID [facility] Administration Ondansetron HCl 4 mg 09/23/19 14:29 Zofran Injection IVPUSH Q6H PRN NAUSEA AND/OR VOMITING Pregabalin 150 mg 09/23/19 22:00 09/26/19 09:11 Lyrica - PO 150 mg BID [facility] Administration Impression 1. CKD 2. leukopenia 3. obstructive uropathy with bilateral hydro 4. breast cancer with mets 5. HTN 6. hyperlipidemia 7. anemia 8. ALEKSANDER 9. 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
--- NOTE | 2019-09-26 18:30 | PN ---
Progress Note (short form) - Note Progress Note: Patient seen and examined Lethargic Last Vital Signs Temp Pulse Resp BP Pulse Ox 98.7 F 99 H 20 113/56 L 95 09/26/19 14:54 09/26/19 14:54 09/26/19 14:54 09/26/19 14:54 09/26/19 10:00 HEENT: PAT, EOM Intact Oropharynx: No thrush, No mucositis Cor: RSR, No murmurs, No gallops Lungs: Clear to P&A Abd: Soft, Normal bowel sounds, No organomegaly,ileostomy Ext:No significant edema Skin: No rashes, Integument intact, telangiectasia right chest wall CBC, BMP 09/26/19 11:00 09/26/19 11:00 Current Medications Generic Name Dose Route Start Last Admin Trade Name Freq PRN Reason Stop Dose Admin Acetaminophen 650 mg 09/23/19 13:24 Tylenol - PO Q6H PRN Fever Or Pain 1-3 Albuterol/Ipratropium 1 amp 09/23/19 14:00 09/26/19 14:10 Duoneb - NEB 1 amp RTID [facility] Administration Artificial Tears 1 drop 09/23/19 13:24 Artificial Tears OU BID PRN DRY EYES Calcitonin 1 spray 09/24/19 10:00 09/26/19 09:11 Miacalcin [place] - NS 1 spray DAILY [facility] Administration Carvedilol 3.125 mg 09/23/19 22:00 09/26/19 09:11 Coreg - PO 3.125 mg BID [facility] Administration Cephalexin HCl 500 mg 09/25/19 16:45 09/26/19 09:11 Keflex - PO 500 mg DAILY [facility] Administration Cholecalciferol 3,000 unit 09/24/19 10:00 09/26/19 09:11 Vitamin D3 - PO 3,000 unit DAILY [facility] Administration Fentanyl 25 mcg 09/23/19 14:29 Sublimaze Injection - IVPUSH [id number] PRN PAIN-PACU ORDER X 4 DOSES ONLY Ferrous Sulfate 325 mg 09/24/19 10:00 09/26/19 09:11 Feosol - PO 325 mg DAILY [facility] Administration Sodium Chloride 1,000 mls @ 75 mls/hr 09/24/19 13:00 09/26/19 03:26 1/2 Normal Saline IV 75 mls/hr ASDIR [facility] Administration Ondansetron HCl 4 mg 09/23/19 14:00 09/26/19 13:42 Zofran - PO 4 mg TID [facility] Administration Ondansetron HCl 4 mg 09/23/19 14:29 Zofran Injection IVPUSH Q6H PRN NAUSEA AND/OR VOMITING Imprssion: Metastatic breast ca Bone Mets S/P stent change on right for hydronephrosis Lethargy Hematuria ALEKSANDER/CKD Plan: D/C lyyeseniaa Renal / follow up Monitoring kidney status /hematuria
--- NOTE | 2019-09-27 05:27 | PN ---
Progress Note, Physician Chief Complaint: Pt alert;fatigued; denies pain, SOB. History of Present Illness: 73 y/o white woman with pmh of Breast cancer stage 3A w/ mets to the spine, peritoneal cavity, colon, and spine, currently off chemoRx with Navelbine, s/p right mastectomy, s/p radiation Rx; bilateral hydronephrosis, s/p fariha ureteral stents; "CHF", now admitted with c/o of weakness of 1-2 weeks duration and abdominal cramping of 1 day duration. She reports that 2 weeks ago she came off chemotherapy under Dr. Edward's supervision and had a CAT scan completed showing R>L effusion. She also reports that she has never needed a walker, but has started to use one since her weakness began. She has been on and off chemo for 2 years now. She reports ALCOCER when walking fast, and bilateral LE edema, but denies LOC, dizziness, head trauma, palpitations, vertigo, tinnitus, chest pain , shortness of breath, orthopnea, PND. - Current Medication List Current Medications: Active Medications Acetaminophen (Tylenol -) 650 mg PO Q6H PRN PRN Reason: Fever Or Pain 1-3 Albuterol/Ipratropium (Duoneb -) 1 amp NEB RTID [facility] Last Admin: 09/26/19 19:30 Dose: 1 amp Artificial Tears (Artificial Tears) 1 drop OU BID PRN PRN Reason: DRY EYES Calcitonin (Miacalcin [place] -) 1 spray NS DAILY [facility] Last Admin: 09/26/19 09:11 Dose: 1 spray Carvedilol (Coreg -) 3.125 mg PO BID [facility] Last Admin: 09/26/19 21:56 Dose: 3.125 mg Cephalexin HCl (Keflex -) 500 mg PO DAILY [facility] Last Admin: 09/26/19 09:11 Dose: 500 mg Cholecalciferol (Vitamin D3 -) 3,000 unit PO DAILY [facility] Last Admin: 09/26/19 09:11 Dose: 3,000 unit Fentanyl (Sublimaze Injection -) 25 mcg IVPUSH [id number] PRN PRN Reason: PAIN-PACU ORDER X 4 DOSES ONLY Ferrous Sulfate (Feosol -) 325 mg PO DAILY [facility] Last Admin: 09/26/19 09:11 Dose: 325 mg Sodium Chloride (1/2 Normal Saline) 1,000 mls @ 75 mls/hr IV ASDIR [facility] Last Admin: 09/26/19 03:26 Dose: 75 mls/hr Ondansetron HCl (Zofran -) 4 mg PO TID [facility] Last Admin: 09/26/19 21:56 Dose: 4 mg Ondansetron HCl (Zofran Injection) 4 mg IVPUSH Q6H PRN PRN Reason: NAUSEA AND/OR VOMITING - Objective Vital Signs: Vital Signs Temperature 98.2 F 09/26/19 22:06 Pulse Rate 80 09/26/19 22:06 Respiratory Rate 09/26/19 22:06 Blood Pressure 102/70 09/26/19 22:06 O2 Sat by Pulse Oximetry (%) 95 09/26/19 21:00 Constitutional: Yes: Calm Eyes: Yes: WNL HENT: Yes: WNL Neck: Yes: WNL Cardiovascular: Yes: S1, S2 Respiratory: Yes: Regular Gastrointestinal: Yes: Soft, Other (colostomy bag). No: Tenderness Genitourinary: Yes: Other (bilateral ureteral stents). No: Anuria Breast(s): Yes: WNL Musculoskeletal: Yes: Muscle Weakness Extremities: Yes: Cool Edema: No Peripheral Pulses WNL: Yes Integumentary: Yes: WNL Neurological: Yes: Lethargy Psychiatric: Yes: Alert Labs: CBC, BMP 09/26/19 11:00 09/26/19 11:00 INR, PTT INR 1.01 (0.83-1.09) 09/13/19 14:40 Abnormal Lab Results 09/26/19 09/26/19 11:00 11:00 WBC 17.0 H RBC 3.44 L MCV 96.7 H RDW 17.0 H Sodium 135 L BUN 62.9 H Creatinine 4.6 H Random Glucose 130 H AST 48 H Alkaline Phosphatase 158 H Total Protein 5.8 L Albumin 2.4 L Problem List - Problems (1) Acute on chronic systolic (congestive) heart failure Assessment/Plan: ECHO: Severely reduced LVEF; minimal-mild aortic stenosis (may be underestimated due to poor LVEF). On carvedilol 3.125 mg bid; increase dose when and if BP allows. Progressive renal dysfunction precludes use of Entresto, ACEI, ARB, or spironolactone at this time. Consider hydralazine + nitrate if BP allows. F/u BUN/Cr, electrolytes, daily weight, Is and Os. (now s/p cystoscopy and bilateral ureteral stent change). Code(s): I50.23 - ACUTE ON CHRONIC SYSTOLIC (CONGESTIVE) HEART FAILURE (2) Anemia Code(s): D64.9 - ANEMIA, UNSPECIFIED (3) Metastasis from malignant tumor of breast Assessment/Plan: f/u with hem/oncologist. Code(s): C79.9 - SECONDARY MALIGNANT NEOPLASM OF UNSPECIFIED SITE; C50.919 - MALIGNANT NEOPLASM OF UNSP SITE OF UNSPECIFIED FEMALE BREAST (4) Leukocytosis Code(s): D72.829 - ELEVATED WHITE BLOOD CELL COUNT, UNSPECIFIED Qualifiers: Leukocytosis type: unspecified Qualified Code(s): D72.829 - Elevated white blood cell count, unspecified (5) Renal dysfunction Assessment/Plan: s/p cystoscopy, ureteral stent Code(s): N28.9 - DISORDER OF KIDNEY AND URETER, UNSPECIFIED (6) Lethargy Assessment/Plan: Consider decrease Lyrica. Code(s): R53.83 - OTHER FATIGUE
[2019-09-27] MEDS: ONDANSETRON 4 MG TABLET PO SCH ×3 (05:40→21:38)
[2019-09-27] MEDS: ALBUTEROL SO4 2.5/IPRATROPIUM 0.5 INH SOL 3 ML VIAL.NEB. NEB SCH ×3 (07:30→21:04)
[2019-09-27] MEDS: FERROUS SO4 325 MG TABLET (FP) PO SCH (09:14)
[2019-09-27] MEDS: CARVEDILOL 3.125 MG TABLET (FP) PO SCH ×2 (09:14→21:38)
[2019-09-27] MEDS: CEPHALEXIN MONOHYDRATE 500 MG CAPSULE (UD) PO SCH (09:14)
[2019-09-27] MEDS: CHOLECALCIFEROL (VIT D3) 1,000 UNIT (25 MCG) TABLET PO SCH (09:15)
[2019-09-27] MEDS: CALCITONIN - SALMON SYNTHETIC 200 UNITS/SPRAY NS SCH (09:16)
--- NOTE | 2019-09-27 10:35 | PN ---
Progress Note, Physician History of Present Illness: 73 y/o F, pmh of Breast cancer stage 3A w/ mets to the spine, peritoneal cavity , colon, spine currently off chem with Navelbine, s/p right mastectomy, s/p radiation, b/l ureteral stents w/ b/l hydro, mild b/l pleural effusion, initially presented c/o of weakness of 1-2 weeks duration and abdominal cramping of 1 day duration. She reports that 2 weeks ago she came off chemo under Dr. Edward's supervision and had a CAT scan completed showing R>L effusion. She also reports that she has never needed a walker but began to use one since her weakness started. She has been on and off chemo for 2 years now. She reports ALCOCER walking fast and bilateral LE edema, but denies LOC, dizziness, head trauma, palpitations, vertigo, tinnitis, chest pain, shortness of breath, orthopnea, PND. - Current Medication List Current Medications: Active Medications Acetaminophen (Tylenol -) 650 mg PO Q6H PRN PRN Reason: Fever Or Pain 1-3 Albuterol/Ipratropium (Duoneb -) 1 amp NEB RTID [facility] Last Admin: 09/27/19 07:30 Dose: 1 amp Artificial Tears (Artificial Tears) 1 drop OU BID PRN PRN Reason: DRY EYES Calcitonin (Miacalcin [place] -) 1 spray NS DAILY [facility] Last Admin: 09/27/19 09:16 Dose: 1 spray Carvedilol (Coreg -) 3.125 mg PO BID [facility] Last Admin: 09/27/19 09:14 Dose: 3.125 mg Cephalexin HCl (Keflex -) 500 mg PO DAILY [facility] Last Admin: 09/27/19 09:14 Dose: 500 mg Cholecalciferol (Vitamin D3 -) 3,000 unit PO DAILY [facility] Last Admin: 09/27/19 09:15 Dose: 3,000 unit Fentanyl (Sublimaze Injection -) 25 mcg IVPUSH [id number] PRN PRN Reason: PAIN-PACU ORDER X 4 DOSES ONLY Ferrous Sulfate (Feosol -) 325 mg PO DAILY [facility] Last Admin: 09/27/19 09:14 Dose: 325 mg Sodium Chloride (1/2 Normal Saline) 1,000 mls @ 75 mls/hr IV ASDIR [facility] Last Admin: 09/26/19 03:26 Dose: 75 mls/hr Ondansetron HCl (Zofran -) 4 mg PO TID [facility] Last Admin: 09/27/19 05:40 Dose: 4 mg Ondansetron HCl (Zofran Injection) 4 mg IVPUSH Q6H PRN PRN Reason: NAUSEA AND/OR VOMITING - Objective Vital Signs: Vital Signs Temperature 97.3 F L 09/27/19 06:32 Pulse Rate 91 H 09/27/19 06:32 Respiratory Rate 20 09/27/19 06:32 Blood Pressure 123/65 09/27/19 06:32 O2 Sat by Pulse Oximetry (%) 95 09/26/19 21:00 Eyes: Yes: WNL, Conjunctiva Clear, EOM Intact HENT: Yes: WNL, Atraumatic, Normocephalic Neck: Yes: WNL, Supple, Trachea Midline Cardiovascular: Yes: WNL, Regular Rate and Rhythm Respiratory: Yes: WNL, Regular, CTA Bilaterally Gastrointestinal: Yes: WNL, Normal Bowel Sounds Genitourinary: Yes: WNL Musculoskeletal: Yes: WNL Extremities: Yes: WNL Edema: No Integumentary: Yes: WNL Neurological: Yes: WNL, Alert, Oriented ...Motor Strength: WNL Psychiatric: Yes: WNL Labs: CBC, BMP 09/26/19 11:00 09/26/19 11:00 INR, PTT INR 1.01 (0.83-1.09) 09/13/19 14:40 Assessment/Plan - Problems (1) Acute on chronic systolic (congestive) heart failure Assessment/Plan: ECHO: Severely reduced LVEF; minimal-mild aortic stenosis (may be underestimated due to poor LVEF). On carvedilol 3.125 mg bid; increase dose when and if BP allows. Progressive renal dysfunction precludes use of Entresto, ACEI, ARB, or spironolactone at this time. Consider hydralazine + nitrate if BP allows. F/u BUN/Cr, electrolytes, daily weight, Is and Os. (now s/p cystoscopy and bilateral ureteral stent change). Code(s): I50.23 - ACUTE ON CHRONIC SYSTOLIC (CONGESTIVE) HEART FAILURE (2) Anemia Code(s): D64.9 - ANEMIA, UNSPECIFIED (3) Metastasis from malignant tumor of breast Assessment/Plan: f/u with hem/oncologist. Code(s): C79.9 - SECONDARY MALIGNANT NEOPLASM OF UNSPECIFIED SITE; C50.919 - MALIGNANT NEOPLASM OF UNSP SITE OF UNSPECIFIED FEMALE BREAST (4) Leukocytosis Code(s): D72.829 - ELEVATED WHITE BLOOD CELL COUNT, UNSPECIFIED Qualifiers: Leukocytosis type: unspecified Qualified Code(s): D72.829 - Elevated white blood cell count, unspecified (5) Renal dysfunction Assessment/Plan: s/p cystoscopy, ureteral stent Code(s): N28.9 - DISORDER OF KIDNEY AND URETER, UNSPECIFIED (6) Lethargy Assessment/Plan: Consider decrease Lyrica. Code(s): R53.83 - OTHER FATIGUE
--- NOTE | 2019-09-27 10:37 | PN ---
Progress Note (short form) - Note Progress Note: Renal follow up for ALEKSANDER Coverage for Dr. Land Seen and examined at the bedside awake and alert offers no acute complaints denies any sob, cp, fever, chills, N/V/D making urine via castellanos and nephrostomy tubes Vital Signs Temperature 97.3 F L 09/27/19 06:32 Pulse Rate 91 H 09/27/19 06:32 Respiratory Rate 20 09/27/19 06:32 Blood Pressure 123/65 09/27/19 06:32 O2 Sat by Pulse Oximetry (%) 95 09/26/19 21:00 Intake & Output 09/24/19 09/25/19 09/26/19 09/27/19 23:59 23:59 23:59 23:59 Intake Total 2471 1640 1475 300 Output Total 1850 3450 4150 3000 Balance 341 -1810 -2675 -2700 NAD awake and alert neck supple RRR CTA + edema in LE nephrostomy and castellanos in place CBC, BMP 09/26/19 11:00 09/26/19 11:00 Current Medications Acetaminophen (Tylenol -) 650 mg PO Q6H PRN PRN Reason: Fever Or Pain 1-3 Albuterol/Ipratropium (Duoneb -) 1 amp NEB RTID [facility] Last Admin: 09/27/19 07:30 Dose: 1 amp Artificial Tears (Artificial Tears) 1 drop OU BID PRN PRN Reason: DRY EYES Calcitonin (Miacalcin [place] -) 1 spray NS DAILY [facility] Last Admin: 09/27/19 09:16 Dose: 1 spray Carvedilol (Coreg -) 3.125 mg PO BID [facility] Last Admin: 09/27/19 09:14 Dose: 3.125 mg Cephalexin HCl (Keflex -) 500 mg PO DAILY [facility] Last Admin: 09/27/19 09:14 Dose: 500 mg Cholecalciferol (Vitamin D3 -) 3,000 unit PO DAILY [facility] Last Admin: 09/27/19 09:15 Dose: 3,000 unit Fentanyl (Sublimaze Injection -) 25 mcg IVPUSH [id number] PRN PRN Reason: PAIN-PACU ORDER X 4 DOSES ONLY Ferrous Sulfate (Feosol -) 325 mg PO DAILY [facility] Last Admin: 09/27/19 09:14 Dose: 325 mg Sodium Chloride (1/2 Normal Saline) 1,000 mls @ 75 mls/hr IV ASDIR [facility] Last Admin: 09/26/19 03:26 Dose: 75 mls/hr Ondansetron HCl (Zofran -) 4 mg PO TID [facility] Last Admin: 09/27/19 05:40 Dose: 4 mg Ondansetron HCl (Zofran Injection) 4 mg IVPUSH Q6H PRN PRN Reason: NAUSEA AND/OR VOMITING Impression 1. CKD 2. leukopenia 3. obstructive uropathy with bilateral hydro 4. breast cancer with mets 5. HTN 6. hyperlipidemia 7. anemia 8. ALEKSANDER 9. CHF Plan Renal function stable. No overt electrolyte or acid/base disturbance noted. pt is not polyuric so does not need IVF. Continue to trend renal function and electrolytes no acute indication for renal replacement therapy Dr Land
[2019-09-27 11:01] LABS: BASO % 0.4 % (0-2.0); EOS % 2.8 % (0-4.5); HEMATOCRIT 30.6 % (32.4-45.2); HEMOGLOBIN 10.3 GM/dL (10.7-15.3); MCHC 33.9 g/dl (32.0-36.0); MEAN CELL VOLUME 97.4 fl (80-96); MEAN PLT VOLUME 8.9 fl (7.5-11.1); MONO % 5.9 % (3.8-10.2); NEUT % 83.9 % (42.8-82.8); PLATELET COUNT 217 K/MM3 (134-434); RBC 3.14 M/mm3 (3.60-5.2); RDW 16.9 % (11.6-15.6); WHITE BLOOD COUNT 10.9 K/mm3 (4.0-10.0)
[2019-09-27 11:25] LABS: ALBUMIN 2.4 g/dl (3.4-5.0); BILIRUBIN,TOTAL 0.4 mg/dL (0.2-1); BLOOD UREA NITROGEN 64.8 mg/dL (7-18); CALCIUM 8.9 mg/dL (8.5-10.1); CREATININE 4.1 mg/dL (0.55-1.3); MAGNESIUM 1.7 mg/dL (1.8-2.4); PHOSPHOROUS 6.6 mg/dL (2.5-4.9); POTASSIUM 4.8 mmol/L (3.5-5.1); TOT PROT 5.6 g/dl (6.4-8.2)
[2019-09-27] MEDS ORDERED: MAGNESIUM OXIDE 400 MG TABLET (FP) PO ONE (11:39)
--- NOTE | 2019-09-27 12:12 | PN ---
Teaching Attending Note Name of Resident: Inocencio Isabel ATTENDING PHYSICIAN STATEMENT I saw and evaluated the patient. I reviewed the resident's note and discussed the case with the resident. I agree with the resident's findings and plan as documented. SUBJECTIVE: Feels comfortable, pain well controlled. No SOB/CP. No abdominal pain/diarrhea/nausea/vomiting. No complaints. OBJECTIVE: Afebrile, Hemodynamically Stable. Hematuria s/p Castellanos placement - improving. AAO x 3, Pale++ Last Vital Signs Temp Pulse Resp BP Pulse Ox 98.0 F 88 20 118/63 96 09/27/19 10:00 09/27/19 10:00 09/27/19 10:00 09/27/19 10:09/27/19 10:00 Heart - S1, S2, RRR Lungs - decreased air entry at bases. R side portacath. Abdomen - Soft, non-tender. Mild distension. R sided -ostomy working, liquid stool. No hematochezia. Bowel Sounds normal. - Urine blood tinged via castellanos. L nephrostomy - urine clear. Extremities - mild edema, no calf tenderness. RUE erythema/edema improved. Neuro - AAO x 3. Tone/Power normal all extremities. Laboratory Results - last 24 hr 09/27/19 09/27/19 09:55 09:55 WBC 10.9 H RBC 3.14 L Hgb 10.3 L Hct 30.6 L MCV 97.4 H MCH 33.0 MCHC 33.9 RDW 16.9 H Plt Count 217 MPV 8.9 D Absolute Neuts (auto) 9.2 H Neutrophils % 83.9 H Lymphocytes % 7.0 L D Monocytes % 5.9 Eosinophils % 2.8 Basophils % 0.4 Nucleated RBC % 0 Sodium 137 Potassium 4.8 Chloride 103 Carbon Dioxide 24 Anion Gap 9 BUN 64.8 H Creatinine 4.1 H Est GFR (CKD-EPI)AfAm 11.76 Est GFR (CKD-EPI)NonAf 10.14 Random Glucose 108 H Calcium 8.9 Phosphorus 6.6 H Magnesium 1.7 L Total Bilirubin 0.4 AST 47 H ALT 12 L Alkaline Phosphatase 131 H Total Protein 5.6 L Albumin 2.4 L Current Medications Generic Name Dose Route Start Last Admin Trade Name Freq PRN Reason Stop Dose Admin Acetaminophen 650 mg 09/23/19 13:24 Tylenol - PO Q6H PRN Fever Or Pain 1-3 Albuterol/Ipratropium 1 amp 09/23/19 14:00 09/27/19 07:30 Duoneb - NEB 1 amp RTID [facility] Administration Artificial Tears 1 drop 09/23/19 13:24 Artificial Tears OU BID PRN DRY EYES Calcitonin 1 spray 09/24/19 10:00 09/27/19 09:16 Miacalcin [place] - NS 1 spray DAILY [facility] Administration Carvedilol 3.125 mg 09/23/19 22:00 09/27/19 09:14 Coreg - PO 3.125 mg BID [facility] Administration Cephalexin HCl 500 mg 09/25/19 16:45 09/27/19 09:14 Keflex - PO 500 mg DAILY [facility] Administration Cholecalciferol 3,000 unit 09/24/19 10:00 09/27/19 09:15 Vitamin D3 - PO 3,000 unit DAILY [facility] Administration Fentanyl 25 mcg 09/23/19 14:29 Sublimaze Injection - IVPUSH [id number] PRN PAIN-PACU ORDER X 4 DOSES ONLY Ferrous Sulfate 325 mg 09/24/19 10:00 09/27/19 09:14 Feosol - PO 325 mg DAILY [facility] Administration Sodium Chloride 1,000 mls @ 75 mls/hr 09/24/19 13:00 09/26/19 03:26 1/2 Normal Saline IV 75 mls/hr ASDIR [facility] Administration Ondansetron HCl 4 mg 09/23/19 14:00 09/27/19 05:40 Zofran - PO 4 mg TID [facility] Administration Ondansetron HCl 4 mg 09/23/19 14:29 Zofran Injection IVPUSH Q6H PRN NAUSEA AND/OR VOMITING Home Medications Medication Instructions Recorded Calcium Citrate/Magnesium/D3 2 tab PO DAILY 05/08/17 [Calcium Citrate Chewable Wafer] Cholecalciferol (Vitamin D3) 3,000 unit PO DAILY 05/08/17 [Vitamin D3] Vitamin B Complex 1 each PO DAILY 05/08/17 Ferrous Sulfate [Feosol] 325 mg PO DAILY 01/15/18 Magnesium Citrate 800 mg PO DAILY 01/15/18 Cyclobenzaprine HCl 10 mg PO Q8H 09/13/19 Ondansetron HCl [Zofran] 4 mg PO Q8H 09/13/19 Tramadol HCl 50 mg PO Q8H 09/13/19 ASSESSMENT/PLAN: 73 year old female with history of Metastatic Breast Ca (bone, peritoneal cavity , stomach), s/p mastectomy, s/p small bowel resection/R colectomy/end ileostomy due to mets, last CTx 09/01/19, bilateral ureteral stents due to bilateral hydronephrosis due to compressive metastatic ca, presents with generalized weakness and upper body/torso spasm episode, lasting minutes, resolved spontaneously. She has history of spasm, on flexeril PRN. 1. Generalized weakness/Muscular Spasm - resolved Possible side-effects of chemotherapy and tumor burden/chronic disease. Poor appetite - nutrition as per diet recommendations. No further spasm episodes. Flexeril PRN. 2. ALEKSANDER - mild improvement in BUN/Creat, now Creat 4.1 NM Renal Scan positive for bilateral renal outlet obstruction Hx of bilateral hydronephrosis s/p ureteral stents, now with ALEKSANDER and worsening creatinine POD 4 s/p Cystoscopy with R ureteral stent exchange and L ureteral stent removal. Hematuria via castellanos improving. POD 3 s/p L Nephrostomy by IR - clear urine draining, no further blood per nephrostomy. Need for CBI discussed with Dr. Josue 09/24 - hold off pending further Urology eval. Nephrology and Urology (Dr. Josue) following. 3. Cellulitis RUE - resolving Leukocytosis resolving. No DVT on US Duplex Received course of Zosyn/Vanco as per ID - now transitioned to oral Keflex. 4. Leukocytosis, labile Afebrile, hemodynamically stable. Stool to be sent for repeat Cdiff. If any fever, will tyson-culture. ID following. 5. Systolic CHF, etiology unclear ?sec to Chemotherapy EF 20%, bibasal effusions. Coreg started Patient off IV fluids and Lasix. Monitor fluid/respiratory status. Cardiology following, recommend eventual hydralazine/nitrate 6. Metastatic Breast Ca (bone - C/L spine, ribs, femoral shafts, sacrum, peritoneal cavity), s/p mastectomy, last CTx 09/01/[address] Chest ?metastatic, no respiratory distress. s/p recent CTx s/p Neupogen Oncology following - would appreciate plan for further treatment versus palliation ? goals of oncology management. Will consult Palliative Care. 7. Compression Fracture L4 ?pathologic with significant stenosis L 3/4, L 4/5. Asymptomatic currently. Tramadol prn. Lyrica held by Hematology, reason unclear. Will monitor patient comfort/pain level. Consider Neurosurgery eval as out-patient. 8. Acute on Chronic Anemia ? sec to CTx vs chronic disease vs marrow infiltration by tumor process + Acute Blood Loss ( source). Iron levels borderline. On Ferrous Sulfate. B12/Folate wnl. Hematuria improved but ongoing. H/H 10.3/30.6 s/p 1 unit PRBCs. Will monitor. 8. Hyperkalemia sec to ALEKSANDER - resolved s/p Lokelma. DVT Px - hold Heparin SQ due to hematuria.
--- NOTE | 2019-09-27 12:13 | PN ---
Progress Note (short form) - Note Progress Note: Seen in follow up. No events overnight. Comfortable, supine in bed. Inpatient meds reviewed: Current Medications Acetaminophen (Tylenol -) 650 mg PO Q6H PRN PRN Reason: Fever Or Pain 1-3 Albuterol/Ipratropium (Duoneb -) 1 amp NEB RTID [facility] Last Admin: 09/27/19 07:30 Dose: 1 amp Artificial Tears (Artificial Tears) 1 drop OU BID PRN PRN Reason: DRY EYES Calcitonin (Miacalcin [place] -) 1 spray NS DAILY [facility] Last Admin: 09/27/19 09:16 Dose: 1 spray Carvedilol (Coreg -) 3.125 mg PO BID [facility] Last Admin: 09/27/19 09:14 Dose: 3.125 mg Cephalexin HCl (Keflex -) 500 mg PO DAILY [facility] Last Admin: 09/27/19 09:14 Dose: 500 mg Cholecalciferol (Vitamin D3 -) 3,000 unit PO DAILY [facility] Last Admin: 09/27/19 09:15 Dose: 3,000 unit Fentanyl (Sublimaze Injection -) 25 mcg IVPUSH [id number] PRN PRN Reason: PAIN-PACU ORDER X 4 DOSES ONLY Ferrous Sulfate (Feosol -) 325 mg PO DAILY [facility] Last Admin: 09/27/19 09:14 Dose: 325 mg Sodium Chloride (1/2 Normal Saline) 1,000 mls @ 75 mls/hr IV ASDIR [facility] Last Admin: 09/26/19 03:26 Dose: 75 mls/hr Ondansetron HCl (Zofran -) 4 mg PO TID [facility] Last Admin: 09/27/19 05:40 Dose: 4 mg Ondansetron HCl (Zofran Injection) 4 mg IVPUSH Q6H PRN PRN Reason: NAUSEA AND/OR VOMITING On Examination: Last Vital Signs Temp Pulse Resp BP Pulse Ox 98.0 F 88 20 118/63 96 09/27/19 10:00 09/27/19 10:00 09/27/19 10:00 09/27/19 10:00 09/27/19 10:00 General: In no acute distress, supine in bed. No pallor or icterus. CVS: S1, S2, no gallop or murmur. Chest: breathing comfortably, clear. Abdomen: non-distended, non-tender, colostomy Neuro: Alert, oriented to place, and to the president, not to time. Non-focal Extremities: Unremarkable Labs: CBC, BMP 09/27/19 09:55 09/27/19 09:55 Assessment. Breast CA, Stage IV - stable disease left ribs, sternum, sacrum and femurs. Pleural effusions - stable. History of hydronephrosis - s/p stents. Admitted with abdominal pain - possible colitis - on Abics as per IDS. Prior cellulitis R arm (chronic lymphedema) - previously on vancomycin - now oral cephalosporin, as per ID. Bilateral hydronephrosis now s/p stent right ureteral stent change and left PCN placement. Rising BUN/creat somewhat abated - suspect likley element of prerenal azotemia, and ATN. Consider adequate IV fluid challenge Nephrology following. Iron panel consistent with anemia of chronic disease - no role for supplemental oral iron. Goals of care, re her metastatic breast cancer to be addressed by Dr Edward on Sunday. Will continue to follow. Call with questions.
--- NOTE | 2019-09-27 12:25 | PN ---
Physical Exam: SUBJECTIVE: Patient seen and examined. Feels comfortable. Not sob, AO X 3. No fevers, chills overnight. OBJECTIVE: Vital Signs Period Temp Pulse Resp BP Sys/Avila Pulse Ox Last 24 Hr 97.3 F-98.7 F 80-99 - 102-123/56-70 95-96 GENERAL: The patient is awake, alert. Pt is much improved today. No longer pale. EYES: PERRL, extraocular movements intact, sclera anicteric, conjunctiva clear. ENT: oropharynx clear without exudates, moist mucous membranes. NECK: Trachea midline, full range of motion, supple. LUNGS: Breath sounds equal, clear to auscultation bilaterally, no wheezes, no crackles, HEART: Regular rate and rhythm, S1, S2 without murmur, rub or gallop. ABDOMEN: Soft, nontender, mild distention, Colostomy bag on the right- draining bilious watery loose stool. Left nephrostomy tube in place- draining yellow urine. [place] draining blood tinged urine but improved from prior, no clots. EXTREMITIES: 2+ pulses, warm, well-perfused, no edema. NEUROLOGICAL: Cranial nerves II through XII grossly intact. Normal speech Laboratory Results - last 24 hr 09/27/19 09/27/19 09:55 09:55 WBC 10.9 H RBC 3.14 L Hgb 10.3 L Hct 30.6 L MCV 97.4 H MCH 33.0 MCHC 33.9 RDW 16.9 H Plt Count 217 MPV 8.9 D Absolute Neuts (auto) 9.2 H Neutrophils % 83.9 H Lymphocytes % 7.0 L D Monocytes % 5.9 Eosinophils % 2.8 Basophils % 0.4 Nucleated RBC % 0 Sodium 137 Potassium 4.8 Chloride 103 Carbon Dioxide 24 Anion Gap 9 BUN 64.8 H Creatinine 4.1 H Est GFR (CKD-EPI)AfAm 11.76 Est GFR (CKD-EPI)NonAf 10.14 Random Glucose 108 H Calcium 8.9 Phosphorus 6.6 H Magnesium 1.7 L Total Bilirubin 0.4 AST 47 H ALT 12 L Alkaline Phosphatase 131 H Total Protein 5.6 L Albumin 2.4 L Active Medications Generic Name Dose Route Start Last Admin Trade Name Freq PRN Reason Stop Dose Admin Acetaminophen 650 mg 09/23/19 13:24 Tylenol - PO Q6H PRN Fever Or Pain 1-3 Albuterol/Ipratropium 1 amp 09/23/19 14:00 09/27/19 07:30 Duoneb - NEB 1 amp RTID [facility] Administration Artificial Tears 1 drop 09/23/19 13:24 Artificial Tears OU BID PRN DRY EYES Calcitonin 1 spray 09/24/19 10:00 09/27/19 09:16 Miacalcin [place] - NS 1 spray DAILY [facility] Administration Carvedilol 3.125 mg 09/23/19 22:00 09/27/19 09:14 Coreg - PO 3.125 mg BID [facility] Administration Cephalexin HCl 500 mg 09/25/19 16:45 09/27/19 09:14 Keflex - PO 500 mg DAILY [facility] Administration Cholecalciferol 3,000 unit 09/24/19 10:00 09/27/19 09:15 Vitamin D3 - PO 3,000 unit DAILY [facility] Administration Fentanyl 25 mcg 09/23/19 14:29 Sublimaze Injection - IVPUSH [id number] PRN PAIN-PACU ORDER X 4 DOSES ONLY Sodium Chloride 1,000 mls @ 75 mls/hr 09/24/19 13:00 09/26/19 03:26 1/2 Normal Saline IV 75 mls/hr ASDIR [facility] Administration Ondansetron HCl 4 mg 09/23/19 14:00 09/27/19 05:40 Zofran - PO 4 mg TID [facility] Administration Ondansetron HCl 4 mg 09/23/19 14:29 Zofran Injection IVPUSH Q6H PRN NAUSEA AND/OR VOMITING ASSESSMENT/PLAN: 73 y/o F, pmh of Breast cancer stage 3A w/ mets to the spine, peritoneal cavity , colon, spine, s/p right mastectomy, s/p radiation, b/l ureteral stents w/ b/l hydro, mild b/l pleural effusion, presents c/o of weakness of 1-2 weeks duration and abdominal cramping of 1 day duration #ALEKSANDER, elevated Cre b/l hydronephrosis s/p ureteral stents F/u w/ Uro and Heme/onc Renal following Discussed with pts family about pt's status and explained her current medical problems. Family and pt verified understanding. #Leukocytosis new White count of 17, likely hemoconcentration vs dehydration, r/o infxn cont abx ID following #New Systolic CHF cause unknown as ECHO in 2018 was normal Likely adverse effect of Navelbine/chemo vs metastatic disease carvedolol 3.125 BID Progressive renal dysfunction precludes use of Entresto, ACEI, ARB, or spironolactone at this time. Consider hydralazine + nitrate after pt's renal function as stabilized EKG NSR, possible LAE #Hyperkalemia Potassium 4.8 improved today, down trending #Macrocytic Anemia ? sec to CTx vs chronic disease vs marrow infiltration by tumor process. Hb 10, improved Ferrous sulfate #Right forearm Cellulitis Abx c/w PO keflex 500 daily WBC 10.9 now, will need to monitor LE MRI ordered by heme/onc- pending #Right pelvic mass US bladder- cystic mass like density right hemipelvis- irregular mass like density if its anterior wall. #Abdominal cramping/Generalized spasm likely 2/2 to dehydration 2/2 Failure to thrive vs Navelbine adverse effect now resolved Waiting for neurosurgery consult- Dr. Acosta- attempted to reach, discussed with social secretary for call back Flexeril prn Diet regular IVF 1/2 NS #Decreased mood likely 2/2 to cancer dx Will addiction counselor and consider antidepressants if needed #DVTppx hep sq TID FEN monitor lytes Regular diet 1/2 NS ATTENDING PHYSICIAN STATEMENT I saw and evaluated the patient. I reviewed the resident's note and discussed the case with the resident. I agree with the resident's findings and plan as documented. SUBJECTIVE: OBJECTIVE: ASSESSMENT AND PLAN:
--- NOTE | 2019-09-27 13:20 | PN ---
Progress Note (short form) - Note Progress Note: PULMONARY Denies shortness of breath or chest pain. Vital Signs Period Temp Pulse Resp BP Sys/Avila Pulse Ox Last 24 Hr 97.3 F-98.7 F 80-99 20-20 102-123/56-70 95-96 Gen: NAD at rest Heart: RRR Lung: decreased breath sounds at the bases Abd: soft, nontender Ext: no edema CBC, BMP 09/27/19 09:55 09/27/19 09:55 Active Medications Acetaminophen (Tylenol -) 650 mg PO Q6H PRN PRN Reason: Fever Or Pain 1-3 Albuterol/Ipratropium (Duoneb -) 1 amp NEB RTID [facility] Last Admin: 09/27/19 07:30 Dose: 1 amp Artificial Tears (Artificial Tears) 1 drop OU BID PRN PRN Reason: DRY EYES Calcitonin (Miacalcin [place] -) 1 spray NS DAILY [facility] Last Admin: 09/27/19 09:16 Dose: 1 spray Carvedilol (Coreg -) 3.125 mg PO BID [facility] Last Admin: 09/27/19 09:14 Dose: 3.125 mg Cephalexin HCl (Keflex -) 500 mg PO DAILY [facility] Last Admin: 09/27/19 09:14 Dose: 500 mg Cholecalciferol (Vitamin D3 -) 3,000 unit PO DAILY [facility] Last Admin: 09/27/19 09:15 Dose: 3,000 unit Fentanyl (Sublimaze Injection -) 25 mcg IVPUSH [id number] PRN PRN Reason: PAIN-PACU ORDER X 4 DOSES ONLY Sodium Chloride (1/2 Normal Saline) 1,000 mls @ 75 mls/hr IV ASDIR [facility] Last Admin: 09/26/19 03:26 Dose: 75 mls/hr Ondansetron HCl (Zofran -) 4 mg PO TID [facility] Last Admin: 09/27/19 05:40 Dose: 4 mg Ondansetron HCl (Zofran Injection) 4 mg IVPUSH Q6H PRN PRN Reason: NAUSEA AND/OR VOMITING A/P Acute on Chronic Diastolic Heart Failure Acute on Chronic Renal Faiulre Bilateral Hydronephrosis Cellulitis Sepsis Metastatic Breast Ca HTN Hyperlipidemia Anemia - continue antibiotics - holding lasix - monitor urine output, creatinine - O2 as needed - inhaled bronchodilators - DVT prophylaxis
[2019-09-28] MEDS: ONDANSETRON 4 MG TABLET PO SCH ×3 (06:00→21:04)
[2019-09-28] MEDS: ALBUTEROL SO4 2.5/IPRATROPIUM 0.5 INH SOL 3 ML VIAL.NEB. NEB SCH ×3 (07:25→20:55)
[2019-09-28 09:12] LABS: BLOOD UREA NITROGEN 80.6 mg/dL (7-18); CALCIUM 9.2 mg/dL (8.5-10.1); MAGNESIUM 1.8 mg/dL (1.8-2.4); POTASSIUM 4.7 mmol/L (3.5-5.1)
--- NOTE | 2019-09-28 10:22 | PN ---
Progress Note, Physician History of Present Illness: 73 y/o F, pmh of Breast cancer stage 3A w/ mets to the spine, peritoneal cavity , colon, spine currently off chem with Navelbine, s/p right mastectomy, s/p radiation, b/l ureteral stents w/ b/l hydro, mild b/l pleural effusion, initially presented c/o of weakness of 1-2 weeks duration and abdominal cramping of 1 day duration. She reports that 2 weeks ago she came off chemo under Dr. Edward's supervision and had a CAT scan completed showing R>L effusion. She also reports that she has never needed a walker but began to use one since her weakness started. She has been on and off chemo for 2 years now. She reports ALCOCER walking fast and bilateral LE edema, but denies LOC, dizziness, head trauma, palpitations, vertigo, tinnitis, chest pain, shortness of breath, orthopnea, PND. - Current Medication List Current Medications: Active Medications Acetaminophen (Tylenol -) 650 mg PO Q6H PRN PRN Reason: Fever Or Pain 1-3 Albuterol/Ipratropium (Duoneb -) 1 amp NEB RTID [facility] Last Admin: 09/28/19 07:25 Dose: 1 amp Artificial Tears (Artificial Tears) 1 drop OU BID PRN PRN Reason: DRY EYES Calcitonin (Miacalcin [place] -) 1 spray NS DAILY [facility] Last Admin: 09/27/19 09:16 Dose: 1 spray Carvedilol (Coreg -) 3.125 mg PO BID [facility] Last Admin: 09/27/19 21:38 Dose: 3.125 mg Cephalexin HCl (Keflex -) 500 mg PO DAILY [facility] Last Admin: 09/27/19 09:14 Dose: 500 mg Cholecalciferol (Vitamin D3 -) 3,000 unit PO DAILY [facility] Last Admin: 09/27/19 09:15 Dose: 3,000 unit Fentanyl (Sublimaze Injection -) 25 mcg IVPUSH [id number] PRN PRN Reason: PAIN-PACU ORDER X 4 DOSES ONLY Sodium Chloride (1/2 Normal Saline) 1,000 mls @ 75 mls/hr IV ASDIR [facility] Last Admin: 09/26/19 03:26 Dose: 75 mls/hr Ondansetron HCl (Zofran -) 4 mg PO TID [facility] Last Admin: 09/28/19 06:00 Dose: 4 mg Ondansetron HCl (Zofran Injection) 4 mg IVPUSH Q6H PRN PRN Reason: NAUSEA AND/OR VOMITING - Objective Vital Signs: Vital Signs Temperature 98.4 F 09/28/19 09:00 Pulse Rate 92 H 09/28/19 09:00 Respiratory Rate 18 09/28/19 09:00 Blood Pressure 104/65 09/28/19 09:00 O2 Sat by Pulse Oximetry (%) 94 L 09/28/19 09:00 Eyes: Yes: WNL, Conjunctiva Clear, EOM Intact HENT: Yes: WNL, Atraumatic, Normocephalic Neck: Yes: WNL, Supple, Trachea Midline Cardiovascular: Yes: WNL, Regular Rate and Rhythm Respiratory: Yes: WNL, Regular, CTA Bilaterally Gastrointestinal: Yes: WNL, Normal Bowel Sounds Genitourinary: Yes: WNL Musculoskeletal: Yes: WNL Extremities: Yes: WNL Edema: No Integumentary: Yes: WNL Neurological: Yes: WNL, Alert, Oriented ...Motor Strength: WNL Psychiatric: Yes: WNL Labs: CBC, BMP 09/28/19 07:05 INR, PTT INR 1.01 (0.83-1.09) 09/13/19 14:40 Assessment/Plan - Problems (1) Acute on chronic systolic (congestive) heart failure Assessment/Plan: ECHO: Severely reduced LVEF; minimal-mild aortic stenosis (may be underestimated due to poor LVEF). On carvedilol 3.125 mg bid; increase dose when and if BP allows. Progressive renal dysfunction precludes use of Entresto, ACEI, ARB, or spironolactone at this time. Consider hydralazine + nitrate if BP allows. F/u BUN/Cr, electrolytes, daily weight, Is and Os. (now s/p cystoscopy and bilateral ureteral stent change). Code(s): I50.23 - ACUTE ON CHRONIC SYSTOLIC (CONGESTIVE) HEART FAILURE (2) Anemia Code(s): D64.9 - ANEMIA, UNSPECIFIED (3) Metastasis from malignant tumor of breast Assessment/Plan: f/u with hem/oncologist. Code(s): C79.9 - SECONDARY MALIGNANT NEOPLASM OF UNSPECIFIED SITE; C50.919 - MALIGNANT NEOPLASM OF UNSP SITE OF UNSPECIFIED FEMALE BREAST (4) Leukocytosis Code(s): D72.829 - ELEVATED WHITE BLOOD CELL COUNT, UNSPECIFIED Qualifiers: Leukocytosis type: unspecified Qualified Code(s): D72.829 - Elevated white blood cell count, unspecified (5) Renal dysfunction Assessment/Plan: s/p cystoscopy, ureteral stent Code(s): N28.9 - DISORDER OF KIDNEY AND URETER, UNSPECIFIED (6) Lethargy Assessment/Plan: Consider decrease Lyrica. Code(s): R53.83 - OTHER FATIGUE
[2019-09-28 10:28] LABS: BASO % 0.4 % (0-2.0); EOS % 3.9 % (0-4.5); HEMATOCRIT 30.5 % (32.4-45.2); HEMOGLOBIN 10.2 GM/dL (10.7-15.3); LYMPH % 7.2 % (8-40); MCHC 33.6 g/dl (32.0-36.0); MEAN CELL VOLUME 98.2 fl (80-96); MEAN PLT VOLUME 9.2 fl (7.5-11.1); MONO % 6.7 % (3.8-10.2); NEUT % 81.8 % (42.8-82.8); PLATELET COUNT 196 K/MM3 (134-434); RDW 16.8 % (11.6-15.6); WHITE BLOOD COUNT 10.9 K/mm3 (4.0-10.0)
--- NOTE | 2019-09-28 11:05 | PN ---
Progress Note (short form) - Note Progress Note: Renal follow up for ALEKSANDER Coverage for Dr. Land Seen and examined at the bedside awake and alert offers no acute complaints denies any sob, cp, fever, chills, N/V/D making urine via castellanos and nephrostomy tubes Vital Signs Temperature 98.4 F 09/28/19 09:00 Pulse Rate 92 H 09/28/19 09:00 Respiratory Rate 18 09/28/19 09:00 Blood Pressure 104/65 09/28/19 09:00 O2 Sat by Pulse Oximetry (%) 94 L 09/28/19 09:00 Intake & Output 09/25/19 09/26/19 09/27/19 09/28/19 23:59 23:59 23:59 23:59 Intake Total 1640 1475 770 Output Total 3450 4150 4400 600 Balance -1810 -2675 -3630 -600 NAD awake and alert neck supple RRR CTA + edema in LE nephrostomy and castellanos in place CBC, BMP 09/28/19 07:05 09/28/19 07:05 Current Medications Acetaminophen (Tylenol -) 650 mg PO Q6H PRN PRN Reason: Fever Or Pain 1-3 Albuterol/Ipratropium (Duoneb -) 1 amp NEB RTID [facility] Last Admin: 09/28/19 07:25 Dose: 1 amp Artificial Tears (Artificial Tears) 1 drop OU BID PRN PRN Reason: DRY EYES Calcitonin (Miacalcin [place] -) 1 spray NS DAILY [facility] Last Admin: 09/27/19 09:16 Dose: 1 spray Carvedilol (Coreg -) 3.125 mg PO BID [facility] Last Admin: 09/27/19 21:38 Dose: 3.125 mg Cephalexin HCl (Keflex -) 500 mg PO DAILY [facility] Last Admin: 09/27/19 09:14 Dose: 500 mg Cholecalciferol (Vitamin D3 -) 3,000 unit PO DAILY [facility] Last Admin: 09/27/19 09:15 Dose: 3,000 unit Fentanyl (Sublimaze Injection -) 25 mcg IVPUSH [id number] PRN PRN Reason: PAIN-PACU ORDER X 4 DOSES ONLY Sodium Chloride (1/2 Normal Saline) 1,000 mls @ 75 mls/hr IV ASDIR [facility] Last Admin: 01/31/20 03:26 Dose: 75 mls/hr Ondansetron HCl (Zofran -) 4 mg PO TID [facility] Last Admin: 09/28/19 06:00 Dose: 4 mg Ondansetron HCl (Zofran Injection) 4 mg IVPUSH Q6H PRN PRN Reason: NAUSEA AND/OR VOMITING Impression 1. CKD 2. leukopenia 3. obstructive uropathy with bilateral hydro 4. breast cancer with mets 5. HTN 6. hyperlipidemia 7. anemia 8. ALEKSANDER 9. CHF Plan Renal function improving. Has mild volume expansion (LE edmea) Lasix PRN for any shortness of breath. pt is not polyuric so does not need IVF. Continue to trend renal function and electrolytes no acute indication for renal replacement therapy Dr Land
[2019-09-28] MEDS ORDERED: PT OWN MED DRAWER 7, Y5N ONE (11:09)
[2019-09-28] MEDS: CHOLECALCIFEROL (VIT D3) 1,000 UNIT (25 MCG) TABLET PO SCH (11:14)
[2019-09-28] MEDS: CEPHALEXIN MONOHYDRATE 500 MG CAPSULE (UD) PO SCH (11:14)
[2019-09-28] MEDS: CARVEDILOL 3.125 MG TABLET (FP) PO SCH ×2 (11:15→21:04)
[2019-09-28] MEDS: CALCITONIN - SALMON SYNTHETIC 200 UNITS/SPRAY NS SCH (11:16)
--- NOTE | 2019-09-28 13:15 | PN ---
Progress Note (short form) - Note Progress Note: PULMONARY Denies shortness of breath or chest pain. No further hematuria. Vital Signs Period Temp Pulse Resp BP Sys/Avila Pulse Ox Last 24 Hr 98 F-98.4 F 89-98 18-20 101-114/59-66 94-98 Gen: NAD at rest Heart: RRR Lung: decreased breath sounds at the bases Abd: soft, nontender Ext: no edema CBC, BMP 09/28/19 07:05 09/28/19 07:05 Active Medications Acetaminophen (Tylenol -) 650 mg PO Q6H PRN PRN Reason: Fever Or Pain 1-3 Albuterol/Ipratropium (Duoneb -) 1 amp NEB RTID [facility] Last Admin: 09/28/19 07:25 Dose: 1 amp Artificial Tears (Artificial Tears) 1 drop OU BID PRN PRN Reason: DRY EYES Calcitonin (Miacalcin [place] -) 1 spray NS DAILY [facility] Last Admin: 09/28/19 11:16 Dose: 1 spray Carvedilol (Coreg -) 3.125 mg PO BID [facility] Last Admin: 09/28/19 11:15 Dose: 3.125 mg Cephalexin HCl (Keflex -) 500 mg PO DAILY [facility] Last Admin: 09/28/19 11:14 Dose: 500 mg Cholecalciferol (Vitamin D3 -) 3,000 unit PO DAILY [facility] Last Admin: 09/28/19 11:14 Dose: 3,000 unit Fentanyl (Sublimaze Injection -) 25 mcg IVPUSH [id number] PRN PRN Reason: PAIN-PACU ORDER X 4 DOSES ONLY Sodium Chloride (1/2 Normal Saline) 1,000 mls @ 75 mls/hr IV ASDIR [facility] Last Admin: 09/26/19 03:26 Dose: 75 mls/hr Ondansetron HCl (Zofran -) 4 mg PO TID [facility] Last Admin: 09/28/19 06:00 Dose: 4 mg Ondansetron HCl (Zofran Injection) 4 mg IVPUSH Q6H PRN PRN Reason: NAUSEA AND/OR VOMITING A/P Acute on Chronic Diastolic Heart Failure Acute on Chronic Renal Faiulre Bilateral Hydronephrosis Cellulitis Sepsis Metastatic Breast Ca HTN Hyperlipidemia Anemia - continue antibiotics - holding lasix - monitor urine output, creatinine - O2 as needed - inhaled bronchodilators - DVT prophylaxis
--- NOTE | 2019-09-28 13:55 | PN ---
Progress Note (short form) - Note Progress Note: SUBJECTIVE: Feels comfortable, pain well controlled. No SOB/CP. No abdominal pain/diarrhea/nausea/vomiting. No complaints. OBJECTIVE: Afebrile, Hemodynamically Stable. Hematuria s/p Castellanos placement - much improved. AAO x 3, Pale++ Last Vital Signs Temp Pulse Resp BP Pulse Ox 98.4 F 92 H 18 104/65 94 L 09/28/19 09:00 09/28/19 09:00 09/28/19 09:00 09/28/19 09:00 09/28/19 09:00 Heart - S1, S2, RRR Lungs - decreased air entry at bases. R side portacath. Abdomen - Soft, non-tender. Mild distension. R sided -ostomy working, liquid stool. No hematochezia. Bowel Sounds normal. - Urine blood tinged via castellanos - improved. L nephrostomy - urine clear. Extremities - mild edema, no calf tenderness. RUE erythema/edema improved. Neuro - AAO x 3. Tone/Power normal all extremities. Laboratory Results - last 24 hr 09/25/19 09/28/19 09/28/19 07:54 07:05 07:05 WBC 10.9 H RBC 3.10 L Hgb 10.2 L Hct 30.5 L MCV 98.2 H MCH 33.0 MCHC 33.6 RDW 16.8 H Plt Count 196 MPV 9.2 Absolute Neuts (auto) 8.9 H Neutrophils % 81.8 Lymphocytes % 7.2 L Monocytes % 6.7 Eosinophils % 3.9 Basophils % 0.4 Nucleated RBC % 0 Sodium 139 Potassium 4.7 Chloride 104 Carbon Dioxide 24 Anion Gap 11 BUN 80.6 H Creatinine 4.0 H Est GFR (CKD-EPI)AfAm 12.11 Est GFR (CKD-EPI)NonAf 10.45 Random Glucose 107 H Calcium 9.2 Phosphorus 7.0 H Magnesium 1.8 Blood Type O POSITIVE Antibody Screen Negative Crossmatch See Detail Current Medications Generic Name Dose Route Start Last Admin Trade Name Freq PRN Reason Stop Dose Admin Acetaminophen 650 mg 09/23/19 13:24 Tylenol - PO Q6H PRN Fever Or Pain 1-3 Albuterol/Ipratropium 1 amp 09/23/19 14:00 09/28/19 07:25 Duoneb - NEB 1 amp RTID TRICIA Administration Artificial Tears 1 drop 09/23/19 13:24 Artificial Tears OU BID PRN DRY EYES Calcitonin 1 spray 09/24/19 10:00 09/28/19 11:16 Miacalcin [place] - NS 1 spray DAILY TR[facility]IA Administration Carvedilol 3.125 mg 09/23/19 22:00 09/28/19 11:15 Coreg - PO 3.125 mg BID TRICIA Administration Cephalexin HCl 500 mg 09/25/19 16:45 09/28/19 11:14 Keflex - PO 500 mg DAILY TRICIA Administration Cholecalciferol 3,000 unit 09/24/19 10:00 09/28/19 11:14 Vitamin D3 - PO 3,000 unit DAILY TRICIA Administration Fentanyl 25 mcg 09/23/19 14:29 Sublimaze Injection - IVPUSH [id number] PRN PAIN-PACU ORDER X 4 DOSES ONLY Sodium Chloride 1,000 mls @ 75 mls/hr 09/24/19 13:00 09/26/19 03:26 1/2 Normal Saline IV 75 mls/hr ASDIR TRICIA Administration Ondansetron HCl 4 mg 09/23/19 14:00 09/28/19 06:00 Zofran - PO 4 mg TID TIRCIA Administration Ondansetron HCl 4 mg 09/23/19 14:29 Zofran Injection IVPUSH Q6H PRN NAUSEA AND/OR VOMITING Home Medications Medication Instructions Recorded Calcium Citrate/Magnesium/D3 2 tab PO DAILY 05/08/17 [Calcium Citrate Chewable Wafer] Cholecalciferol (Vitamin D3) 3,000 unit PO DAILY 05/08/17 [Vitamin D3] Vitamin B Complex 1 each PO DAILY 05/08/17 Ferrous Sulfate [Feosol] 325 mg PO DAILY 01/15/18 Magnesium Citrate 800 mg PO DAILY 01/15/18 Cyclobenzaprine HCl 10 mg PO Q8H 09/13/19 Ondansetron HCl [Zofran] 4 mg PO Q8H 09/13/19 Tramadol HCl 50 mg PO Q8H 09/13/19 ASSESSMENT/PLAN: 73 year old female with history of Metastatic Breast Ca (bone, peritoneal cavity , stomach), s/p mastectomy, s/p small bowel resection/R colectomy/end ileostomy due to mets, last CTx 09/01/19, bilateral ureteral stents due to bilateral hydronephrosis due to compressive metastatic ca, presents with generalized weakness and upper body/torso spasm episode, lasting minutes, resolved spontaneously. She has history of spasm, on flexeril PRN. 1. Generalized weakness/Muscular Spasm - resolved Possible side-effects of chemotherapy and tumor burden/chronic disease. Poor appetite - nutrition as per diet recommendations. No further spasm episodes. Flexeril PRN. 2. ALEKSANDER - mild improvement in BUN/Creat, now Creat 4.0 NM Renal Scan positive for bilateral renal outlet obstruction Hx of bilateral hydronephrosis s/p ureteral stents, now with ALEKSANDER and worsening creatinine POD 5 s/p Cystoscopy with R ureteral stent exchange and L ureteral stent removal by Dr. Josue. Hematuria via castellanos improving. POD 4 s/p L Nephrostomy by IR - clear urine draining, no further blood per nephrostomy. Nephrology and Urology following. 3. Cellulitis RUE - resolving Leukocytosis resolving. No DVT on US Duplex Received course of Zosyn/Vanco as per ID - transitioned to oral Keflex. Abx duration as per ID. 4. Leukocytosis, resolved. Afebrile, hemodynamically stable. Cdiff negative x 2. ID following. 5. Systolic CHF, etiology unclear ?sec to Chemotherapy EF 20%, bibasal effusions, mild LE edema. Coreg started Patient off IV fluids and Lasix. Monitor fluid/respiratory status. Lasix prn. Cardiology following, recommend possible eventual hydralazine/nitrate as renal function precludes ANGELITO/ARB/Entresto 6. Metastatic Breast Ca (Bone - C/L spine, ribs, femoral shafts, sacrum, peritoneal cavity), s/p mastectomy, last CTx 09/01/[address] Chest ?metastatic, no respiratory distress. s/p recent CTx s/p Neupogen Oncology following - would appreciate plan for further treatment versus palliation ? goals of oncology management. Palliative Care consulted, awaiting evaluation. 7. Compression Fracture L4 ?pathologic with significant stenosis L 3/4, L 4/5. Asymptomatic currently. Tramadol prn. Lyrica held by Hematology, reason unclear. Will monitor patient comfort/pain level. Consider Neurosurgery eval as out-patient. 8. Acute on Chronic Anemia ? sec to CTx vs chronic disease vs marrow infiltration by tumor process + Acute Blood Loss ( source). Iron levels borderline. On Ferrous Sulfate. B12/Folate wnl. Hematuria improved but ongoing. H/H stable 10.2/30.5 s/p 1 unit PRBCs. Will monitor. 8. Hyperkalemia sec to ALEKSANDER - resolved s/p Lokelma. DVT Px - SCDs. Heparin SQ held due to hematuria. Visit type - Emergency Visit Emergency Visit: Yes ED Registration Date: 09/17/19 Care time: The patient presented to the Emergency Department on the above date and was hospitalized for further evaluation of their emergent condition. - New Patient This patient is new to me today: No - Critical Care Critical Care patient: No - Discharge Referral Referred to [facility] Med [facility] No
[2019-09-28] MEDS: SODIUM CHLORIDE 0.45% 1,000 ML IV SCH (14:40)
--- NOTE | 2019-09-28 16:30 | PN ---
Progress Note (short form) - Note Progress Note: Seen in follow up. No events overnight. Comfortable, supine in bed. Inpatient meds reviewed: Current Medications Acetaminophen (Tylenol -) 650 mg PO Q6H PRN PRN Reason: Fever Or Pain 1-3 Albuterol/Ipratropium (Duoneb -) 1 amp NEB RTID [facility] Last Admin: 09/28/19 14:51 Dose: 1 amp Artificial Tears (Artificial Tears) 1 drop OU BID PRN PRN Reason: DRY EYES Calcitonin (Miacalcin [place] -) 1 spray NS DAILY [facility] Last Admin: 09/28/19 11:16 Dose: 1 spray Carvedilol (Coreg -) 3.125 mg PO BID [facility] Last Admin: 09/28/19 11:15 Dose: 3.125 mg Cephalexin HCl (Keflex -) 500 mg PO DAILY [facility] Last Admin: 09/28/19 11:14 Dose: 500 mg Cholecalciferol (Vitamin D3 -) 3,000 unit PO DAILY [facility] Last Admin: 09/28/19 11:14 Dose: 3,000 unit Fentanyl (Sublimaze Injection -) 25 mcg IVPUSH [id number] PRN PRN Reason: PAIN-PACU ORDER X 4 DOSES ONLY Sodium Chloride (1/2 Normal Saline) 1,000 mls @ 75 mls/hr IV ASDIR [facility] Last Admin: 09/28/19 14:40 Dose: Not Given Ondansetron HCl (Zofran -) 4 mg PO TID [facility] Last Admin: 09/28/19 14:24 Dose: 4 mg Ondansetron HCl (Zofran Injection) 4 mg IVPUSH Q6H PRN PRN Reason: NAUSEA AND/OR VOMITING On Examination: CBC, BMP 09/28/19 07:05 09/28/19 07:05 General: In no acute distress, supine in bed. No pallor or icterus. CVS: S1, S2, no gallop or murmur. Chest: breathing comfortably, clear. Abdomen: non-distended, non-tender, colostomy Neuro: Alert, reasonably oriented. Non-focal Extremities: Unremarkable Labs: CBC, BMP 09/28/19 07:05 09/28/19 07:05 Assessment. Breast CA, Stage IV - stable disease left ribs, sternum, sacrum and femurs. Pleural effusions - stable. History of hydronephrosis - s/p stents. Admitted with abdominal pain - possible colitis - previously on Abics as per ID. Prior cellulitis R arm (chronic lymphedema) - previously on vancomycin - now oral cephalosporin, as per ID. Bilateral hydronephrosis now s/p right ureteral stent change and left PCN placement. Rising BUN/creat somewhat abated - suspect likely element of prerenal azotemia, and ATN. Ongoing IV fluids at modest rate. Consider adequate IV fluid challenge Nephrology following. Iron panel consistent with anemia of chronic disease - no role for supplemental oral iron. Goals of care, re her metastatic breast cancer to be addressed by Dr Edward on Sunday. Will continue to follow. Call with questions.
[2019-09-29] MEDS: ONDANSETRON 4 MG TABLET PO SCH ×3 (06:03→21:45)
[2019-09-29] MEDS: ALBUTEROL SO4 2.5/IPRATROPIUM 0.5 INH SOL 3 ML VIAL.NEB. NEB SCH ×3 (07:35→20:00)
[2019-09-29] MEDS: CARVEDILOL 3.125 MG TABLET (FP) PO SCH ×2 (09:08→21:45)
[2019-09-29] MEDS: CALCITONIN - SALMON SYNTHETIC 200 UNITS/SPRAY NS SCH (09:08)
[2019-09-29] MEDS: CHOLECALCIFEROL (VIT D3) 1,000 UNIT (25 MCG) TABLET PO SCH (09:08)
[2019-09-29] MEDS: CEPHALEXIN MONOHYDRATE 500 MG CAPSULE (UD) PO SCH (09:08)
[2019-09-29 09:50] LABS: BLOOD UREA NITROGEN 77.4 mg/dL (7-18); CALCIUM 9.2 mg/dL (8.5-10.1); CREATININE 3.3 mg/dL (0.55-1.3); MAGNESIUM 1.6 mg/dL (1.8-2.4); PHOSPHOROUS 6.4 mg/dL (2.5-4.9); POTASSIUM 4.8 mmol/L (3.5-5.1)
--- NOTE | 2019-09-29 10:39 | PN ---
Progress Note (short form) - Note Progress Note: Resting in NAD. Denies shortness of breath or chest pain. No acute events overnight. Intake & Output 09/26/19 09/27/19 09/28/19 09/29/19 23:59 23:59 23:59 23:59 Intake Total 1475 770 840 Output Total 4150 4400 1500 500 Balance -2675 -3630 -660 -500 Last Vital Signs Temp Pulse Resp BP Pulse Ox 97.8 F 91 H 18 113/52 L 95 09/29/19 09:00 09/29/19 09:00 09/29/19 09:00 09/29/19 09:00 09/29/19 09:00 Active Medications Acetaminophen (Tylenol -) 650 mg PO Q6H PRN PRN Reason: Fever Or Pain 1-3 Albuterol/Ipratropium (Duoneb -) 1 amp NEB RTID [facility] Last Admin: 09/29/19 07:35 Dose: 1 amp Artificial Tears (Artificial Tears) 1 drop OU BID PRN PRN Reason: DRY EYES Calcitonin (Miacalcin [place] -) 1 spray NS DAILY [facility] Last Admin: 09/29/19 09:08 Dose: 1 spray Carvedilol (Coreg -) 3.125 mg PO BID [facility] Last Admin: 09/29/19 09:08 Dose: 3.125 mg Cephalexin HCl (Keflex -) 500 mg PO DAILY [facility] Last Admin: 09/29/19 09:08 Dose: 500 mg Cholecalciferol (Vitamin D3 -) 3,000 unit PO DAILY [facility] Last Admin: 09/29/19 09:08 Dose: 3,000 unit Fentanyl (Sublimaze Injection -) 25 mcg IVPUSH [id number] PRN PRN Reason: PAIN-PACU ORDER X 4 DOSES ONLY Sodium Chloride (1/2 Normal Saline) 1,000 mls @ 75 mls/hr IV ASDIR [facility] Last Admin: 09/28/19 14:40 Dose: Not Given Ondansetron HCl (Zofran -) 4 mg PO TID [facility] Last Admin: 09/29/19 06:03 Dose: 4 mg Ondansetron HCl (Zofran Injection) 4 mg IVPUSH Q6H PRN PRN Reason: NAUSEA AND/OR VOMITING Gen: NAD at rest Heart: RRR Lung: decreased breath sounds at the bases Abd: soft, nontender, Intact ostomy Ext: no edema Laboratory Results - last 24 hr 09/25/19 09/29/19 07:54 07:30 Sodium 140 Potassium 4.8 Chloride 106 Carbon Dioxide 23 Anion Gap 10 BUN 77.4 H Creatinine 3.3 H Est GFR (CKD-EPI)AfAm 15.28 Est GFR (CKD-EPI)NonAf 13.19 Random Glucose 101 Calcium 9.2 Phosphorus 6.4 H Magnesium 1.6 L Blood Type O POSITIVE Antibody Screen Negative Crossmatch See Detail A/P Acute on Chronic Diastolic Heart Failure Acute on Chronic Renal Faiulre Bilateral Hydronephrosis Cellulitis Sepsis Metastatic Breast Ca HTN Hyperlipidemia Anemia - Off antibiotics - holding lasix - monitor urine output, creatinine - O2 as needed - inhaled bronchodilators - DVT prophylaxis Dr Brooke
--- NOTE | 2019-09-29 10:58 | PN ---
Progress Note, Physician History of Present Illness: 73 y/o F, pmh of Breast cancer stage 3A w/ mets to the spine, peritoneal cavity , colon, spine currently off chem with Navelbine, s/p right mastectomy, s/p radiation, b/l ureteral stents w/ b/l hydro, mild b/l pleural effusion, initially presented c/o of weakness of 1-2 weeks duration and abdominal cramping of 1 day duration. She reports that 2 weeks ago she came off chemo under Dr. Edward's supervision and had a CAT scan completed showing R>L effusion. She also reports that she has never needed a walker but began to use one since her weakness started. She has been on and off chemo for 2 years now. She reports ALCOCER walking fast and bilateral LE edema, but denies LOC, dizziness, head trauma, palpitations, vertigo, tinnitis, chest pain, shortness of breath, orthopnea, PND. - Current Medication List Current Medications: Active Medications Acetaminophen (Tylenol -) 650 mg PO Q6H PRN PRN Reason: Fever Or Pain 1-3 Albuterol/Ipratropium (Duoneb -) 1 amp NEB RTID [facility] Last Admin: 09/29/19 07:35 Dose: 1 amp Artificial Tears (Artificial Tears) 1 drop OU BID PRN PRN Reason: DRY EYES Calcitonin (Miacalcin [place] -) 1 spray NS DAILY [facility] Last Admin: 09/29/19 09:08 Dose: 1 spray Carvedilol (Coreg -) 3.125 mg PO BID [facility] Last Admin: 09/29/19 09:08 Dose: 3.125 mg Cephalexin HCl (Keflex -) 500 mg PO DAILY [facility] Last Admin: 09/29/19 09:08 Dose: 500 mg Cholecalciferol (Vitamin D3 -) 3,000 unit PO DAILY [facility] Last Admin: 09/29/19 09:08 Dose: 3,000 unit Fentanyl (Sublimaze Injection -) 25 mcg IVPUSH [id number] PRN PRN Reason: PAIN-PACU ORDER X 4 DOSES ONLY Sodium Chloride (1/2 Normal Saline) 1,000 mls @ 75 mls/hr IV ASDIR [facility] Last Admin: 09/28/19 14:40 Dose: Not Given Ondansetron HCl (Zofran -) 4 mg PO TID [facility] Last Admin: 09/29/19 06:03 Dose: 4 mg Ondansetron HCl (Zofran Injection) 4 mg IVPUSH Q6H PRN PRN Reason: NAUSEA AND/OR VOMITING - Objective Vital Signs: Vital Signs Temperature 97.8 F 09/29/19 09:00 Pulse Rate 91 H 09/29/19 09:00 Respiratory Rate 18 09/29/19 09:00 Blood Pressure 113/52 L 09/29/19 09:00 O2 Sat by Pulse Oximetry (%) 95 09/29/19 09:00 Eyes: Yes: WNL, Conjunctiva Clear, EOM Intact HENT: Yes: WNL, Atraumatic, Normocephalic Neck: Yes: WNL, Supple, Trachea Midline Cardiovascular: Yes: WNL, Regular Rate and Rhythm Respiratory: Yes: WNL, Regular, CTA Bilaterally Gastrointestinal: Yes: WNL, Normal Bowel Sounds Genitourinary: Yes: WNL Musculoskeletal: Yes: WNL Extremities: Yes: WNL Edema: No Integumentary: Yes: WNL Neurological: Yes: WNL, Alert, Oriented ...Motor Strength: WNL Psychiatric: Yes: WNL Labs: CBC, BMP 09/28/19 07:05 09/29/19 07:30 INR, PTT INR 1.01 (0.83-1.09) 09/13/19 14:40 Assessment/Plan - Problems (1) Acute on chronic systolic (congestive) heart failure Assessment/Plan: ECHO: Severely reduced LVEF; minimal-mild aortic stenosis (may be underestimated due to poor LVEF). On carvedilol 3.125 mg bid; increase dose when and if BP allows. Progressive renal dysfunction precludes use of Entresto, ACEI, ARB, or spironolactone at this time. Consider hydralazine + nitrate if BP allows. F/u BUN/Cr, electrolytes, daily weight, Is and Os. (now s/p cystoscopy and bilateral ureteral stent change). Code(s): I50.23 - ACUTE ON CHRONIC SYSTOLIC (CONGESTIVE) HEART FAILURE (2) Anemia Code(s): D64.9 - ANEMIA, UNSPECIFIED (3) Metastasis from malignant tumor of breast Assessment/Plan: f/u with hem/oncologist. Code(s): C79.9 - SECONDARY MALIGNANT NEOPLASM OF UNSPECIFIED SITE; C50.919 - MALIGNANT NEOPLASM OF UNSP SITE OF UNSPECIFIED FEMALE BREAST (4) Leukocytosis Code(s): D72.829 - ELEVATED WHITE BLOOD CELL COUNT, UNSPECIFIED Qualifiers: Leukocytosis type: unspecified Qualified Code(s): D72.829 - Elevated white blood cell count, unspecified (5) Renal dysfunction Assessment/Plan: s/p cystoscopy, ureteral stent Code(s): N28.9 - DISORDER OF KIDNEY AND URETER, UNSPECIFIED (6) Lethargy Assessment/Plan: Consider decrease Lyrica. Code(s): R53.83 - OTHER FATIGUE
[2019-09-29] MEDS: SODIUM CHLORIDE 0.45% 1,000 ML IV SCH (13:51)
--- NOTE | 2019-09-29 14:04 | PN ---
Teaching Attending Note Name of Resident: Toñito Quintana ATTENDING PHYSICIAN STATEMENT I saw and evaluated the patient. I reviewed the resident's note and discussed the case with the resident. I agree with the resident's findings and plan as documented. SUBJECTIVE: Feels comfortable, pain well controlled. No SOB/CP. No abdominal pain/diarrhea/nausea/vomiting. No complaints. OBJECTIVE: Afebrile, Hemodynamically Stable. Hematuria s/p Castellanos placement - resolved. AAO x 3, Pale+ Last Vital Signs Temp Pulse Resp BP Pulse Ox 97.8 F 91 H 18 113/52 L 95 09/29/19 09:00 09/29/19 09:00 09/29/19 09:00 09/29/19 09:00 09/29/19 09:00 Heart - S1, S2, RRR Lungs - decreased air entry at bases. R side portacath. Abdomen - Soft, non-tender. Mild distension. R sided -ostomy working, liquid stool. No hematochezia. Bowel Sounds normal. - Urine via fley clear - no further blood. L nephrostomy - urine clear. Extremities - mild edema, no calf tenderness. RUE erythema/edema improved. Neuro - AAO x 3. Tone/Power normal all extremities. Laboratory Results - last 24 hr 09/29/19 07:30 Sodium 140 Potassium 4.8 Chloride 106 Carbon Dioxide 23 Anion Gap 10 BUN 77.4 H Creatinine 3.3 H Est GFR (CKD-EPI)AfAm 15.28 Est GFR (CKD-EPI)NonAf 13.19 Random Glucose 101 Calcium 9.2 Phosphorus 6.4 H Magnesium 1.6 L Current Medications Generic Name Dose Route Start Last Admin Trade Name Luz PRN Reason Stop Dose Admin Acetaminophen 650 mg 09/23/19 13:24 Tylenol - PO Q6H PRN Fever Or Pain 1-3 Albuterol/Ipratropium 1 amp 09/23/19 14:00 09/29/19 07:35 Duoneb - NEB 1 amp RTID [facility] Administration Artificial Tears 1 drop 09/23/19 13:24 Artificial Tears OU BID PRN DRY EYES Calcitonin 1 spray 09/24/19 10:00 09/29/19 09:08 Miacalcin [place] - NS 1 spray DAILY [facility] Administration Carvedilol 3.125 mg 09/23/19 22:00 02/03/20 09:08 Coreg - PO 3.125 mg BID [facility] Administration Cephalexin HCl 500 mg 09/25/19 16:45 09/29/19 09:08 Keflex - PO 500 mg DAILY [facility] Administration Cholecalciferol 3,000 unit 09/24/19 10:00 09/29/19 09:08 Vitamin D3 - PO 3,000 unit DAILY [facility] Administration Fentanyl 25 mcg 09/23/19 14:29 Sublimaze Injection - IVPUSH [id number] PRN PAIN-PACU ORDER X 4 DOSES ONLY Sodium Chloride 1,000 mls @ 75 mls/hr 09/24/19 13:00 09/29/19 13:51 1/2 Normal Saline IV Not Given ASDIR [facility]ICIA Magnesium Sulfate 2 gm 09/29/19 14:15 Magnesium Sulfate IVPB 09/29/19 14:16 ONCE ONE Ondansetron HCl 4 mg 09/23/19 14:00 09/29/19 13:51 Zofran - PO 4 mg TID [facility]IA Administration Ondansetron HCl 4 mg 09/23/19 14:29 Zofran Injection IVPUSH Q6H PRN NAUSEA AND/OR VOMITING Home Medications Medication Instructions Recorded Calcium Citrate/Magnesium/D3 2 tab PO DAILY 05/08/17 [Calcium Citrate Chewable Wafer] Cholecalciferol (Vitamin D3) 3,000 unit PO DAILY 05/08/17 [Vitamin D3] Vitamin B Complex 1 each PO DAILY 05/08/17 Ferrous Sulfate [Feosol] 325 mg PO DAILY 01/15/18 Magnesium Citrate 800 mg PO DAILY 01/15/18 Cyclobenzaprine HCl 10 mg PO Q8H 09/13/19 Ondansetron HCl [Zofran] 4 mg PO Q8H 09/13/19 Tramadol HCl 50 mg PO Q8H 09/13/19 ASSESSMENT/PLAN: 73 year old female with history of Metastatic Breast Ca (bone, peritoneal cavity , stomach), s/p mastectomy, s/p small bowel resection/R colectomy/end ileostomy due to mets, last CTx 09/01/19, bilateral ureteral stents due to bilateral hydronephrosis due to compressive metastatic ca, presents with generalized weakness and upper body/torso spasm episode, lasting minutes, resolved spontaneously. She has history of spasm, on flexeril PRN. 1. Generalized weakness/Muscular Spasm - resolved Possible side-effects of chemotherapy and tumor burden/chronic disease. Poor appetite - nutrition as per diet recommendations. No further spasm episodes. Flexeril PRN. 2. ALEKSANDER - slow improvement in BUN/Creat, now Creat 3.3 NM Renal Scan positive for bilateral renal outlet obstruction Hx of bilateral hydronephrosis s/p ureteral stents, now with ALEKSANDER and worsening creatinine POD 6 s/p Cystoscopy with R ureteral stent exchange and L ureteral stent removal by Dr. Josue. Hematuria via castellanos improved. POD 5 s/p L Nephrostomy by IR - clear urine draining, no further blood per nephrostomy. Nephrology and Urology following. To discuss with urology re: TOV 3. Cellulitis RUE - resolved Leukocytosis resolved No DVT on US Duplex Received course of Zosyn/Vanco as per ID - transitioned to oral Keflex. Abx duration as per ID. 4. Chronic Systolic HF, etiology unclear ?sec to Chemotherapy EF 20%, bibasal effusions, mild LE edema. Coreg started Patient off IV fluids and Lasix. Monitor fluid/respiratory status. Lasix prn. Cardiology following, recommend possible eventual introduction of hydralazine/ nitrate as renal function precludes ANGELITO/ARB/Entresto 5. Metastatic Breast Ca (Bone - C/L spine, ribs, femoral shafts, sacrum, peritoneal cavity), s/p mastectomy, last CTx 09/01/[address] Chest ?metastatic, no respiratory distress. s/p recent CTx s/p Neupogen Oncology following - would appreciate plan for further treatment versus palliation ? goals of oncology management. Palliative Care consulted, awaiting evaluation. 6. Compression Fracture L4 ?pathologic with significant stenosis L 3/4, L 4/5. Asymptomatic currently. Tramadol prn. Lyrica held by Hematology, reason unclear. Will monitor patient comfort/pain level. Consider Neurosurgery eval as out-patient. 7. Acute on Chronic Anemia ? sec to CTx vs chronic disease vs marrow infiltration by tumor process + Acute Blood Loss ( source). Iron levels borderline. On Ferrous Sulfate. B12/Folate wnl. Hematuria resolved. H/H stable 10.2/30.5 s/p 1 unit PRBCs. Will monitor. 8. Hyperkalemia sec to ALEKSANDER - resolved s/p Lokelma. DVT Px - SCDs. Heparin SQ held due to hematuria. Will resume if no further hematuria in next 24 hours. Dispo - unclear. PT requested. Dispo dependent on whether further Chemotherapy is planned by Oncology. Awaiting further recommendations.
[2019-09-29] MEDS ORDERED: MAGNESIUM SULF 50% (8.12 MEQ/2 ML-1 GM VIAL) IVPB ONE (14:15)
--- NOTE | 2019-09-29 15:29 | PN ---
Physical Exam: SUBJECTIVE: Patient seen and examined. Now pt appears much more improved. Mentation improved. Afebrile and symptomatic today. Nephrostomy bag draining normal yellow urine. Castellanos draining yellow urine. Denies f/c/n/v/d/sob, chest pain. OBJECTIVE: Vital Signs Period Temp Pulse Resp BP Sys/Avila Pulse Ox Last 24 Hr 97.2 F-98.6 F 55-92 18-18 105-113/52-65 94-95 GENERAL: The patient is awake, alert. Pt is much improved today. EYES: PERRL, extraocular movements intact, sclera anicteric, conjunctiva clear. ENT: oropharynx clear without exudates, moist mucous membranes. NECK: Trachea midline, full range of motion, supple. LUNGS: Breath sounds equal, clear to auscultation bilaterally, no wheezes, no crackles, HEART: Regular rate and rhythm, S1, S2 without murmur, rub or gallop. ABDOMEN: Soft, nontender, nondistended, normoactive bowel sounds, no guarding, Colostomy bag on the right- draining semi-solid stool. Left nephrostomy tube in place- draining normal colored urine. Castellanos draining normal colored urine. EXTREMITIES: 2+ pulses, warm, well-perfused, no edema. RUE erythema improved, swelling improved NEUROLOGICAL: Cranial nerves II through XII grossly intact. Normal speech PSYCH: Normal mood, normal affect. Laboratory Results - last 24 hr 09/29/19 07:30 Sodium 140 Potassium 4.8 Chloride 106 Carbon Dioxide 23 Anion Gap 10 BUN 77.4 H Creatinine 3.3 H Est GFR (CKD-EPI)AfAm 15.28 Est GFR (CKD-EPI)NonAf 13.19 Random Glucose 101 Calcium 9.2 Phosphorus 6.4 H Magnesium 1.6 L Active Medications Current Medications Acetaminophen (Tylenol -) 650 mg PO Q6H PRN PRN Reason: Fever Or Pain 1-3 Albuterol/Ipratropium (Duoneb -) 1 amp NEB RTID [facility] Last Admin: 09/29/19 07:35 Dose: 1 amp Artificial Tears (Artificial Tears) 1 drop OU BID PRN PRN Reason: DRY EYES Calcitonin (Miacalcin [place] -) 1 spray NS DAILY [facility] Last Admin: 09/29/19 09:08 Dose: 1 spray Carvedilol (Coreg -) 3.125 mg PO BID [facility] Last Admin: 09/29/19 09:08 Dose: 3.125 mg Cephalexin HCl (Keflex -) 500 mg PO DAILY [facility] Last Admin: 09/29/19 09:08 Dose: 500 mg Cholecalciferol (Vitamin D3 -) 3,000 unit PO DAILY [facility] Last Admin: 09/29/19 09:08 Dose: 3,000 unit Fentanyl (Sublimaze Injection -) 25 mcg IVPUSH [id number] PRN PRN Reason: PAIN-PACU ORDER X 4 DOSES ONLY Sodium Chloride (1/2 Normal Saline) 1,000 mls @ 75 mls/hr IV ASDIR [facility] Last Admin: 09/29/19 13:51 Dose: Not Given Ondansetron HCl (Zofran -) 4 mg PO TID [facility] Last Admin: 09/29/19 13:51 Dose: 4 mg Ondansetron HCl (Zofran Injection) 4 mg IVPUSH Q6H PRN PRN Reason: NAUSEA AND/OR VOMITING Home Medications Medication Instructions Recorded Calcium Citrate/Magnesium/D3 2 tab PO DAILY 05/08/17 [Calcium Citrate Chewable Wafer] Cholecalciferol (Vitamin D3) 3,000 unit PO DAILY 05/08/17 [Vitamin D3] Vitamin B Complex 1 each PO DAILY 05/08/17 Ferrous Sulfate [Feosol] 325 mg PO DAILY 01/15/18 Magnesium Citrate 800 mg PO DAILY 01/15/18 Cyclobenzaprine HCl 10 mg PO Q8H 09/13/19 Ondansetron HCl [Zofran] 4 mg PO Q8H 09/13/19 Tramadol HCl 50 mg PO Q8H 09/13/19 Microbiology 09/27/19 16:47 Stool Clostridioides difficile Antigen - Final 09/27/19 16:47 Stool Clostridioides difficile Toxin Assay - Final 09/24/19 18:12 Urine - Urine Nephrostomy Tube Left Urine Culture - Final NO GROWTH OBTAINED 09/19/19 14:00 Rectal Swab Salmonella/Shigella Culture - Final NO GROWTH OF SALMONELLA OR SHIGELLA SPECIES OBTAINED 09/19/19 14:00 Rectal Swab Campylobacter Culture - Final NO GROWTH OF CAMPYLOBACTER SPECIES OBTAINED 09/19/19 14:00 Rectal Swab Yersinia Culture - Final NO GROWTH OF YERSINIA SPECIES OBTAINED 09/19/19 14:00 Rectal Swab Vibrio Culture - Final NO GROWTH OF VIBRIO SPECIES OBTAINED 09/19/19 14:00 Rectal Swab Escherichia coli 0157 Culture - Final NO GROWTH OF E COLI 0157 OBTAINED 09/19/19 14:00 Stool Clostridioides difficile Antigen - Final 09/19/19 14:00 Stool Clostridioides difficile Toxin Assay - Final 09/19/19 14:00 Colon Fluid Gram Stain - Final 09/18/19 11:30 Urine - Urine Clean Catch Urine Culture - Final NO GROWTH OBTAINED 09/13/19 14:45 Blood - Peripheral Venous Blood Culture - Final NO GROWTH AFTER 5 DAYS INCUBATION 09/13/19 14:45 Blood - Peripheral Venous Blood Culture - Final NO GROWTH AFTER 5 DAYS INCUBATION 09/13/19 14:50 Urine - Urine Clean Catch Urine Culture - Final NO GROWTH OBTAINED ASSESSMENT/PLAN: 73 y/o F, pmh of Breast cancer stage 3A w/ mets to the spine, peritoneal cavity , colon, spine, s/p right mastectomy, s/p radiation, b/l ureteral stents w/ b/l hydro, mild b/l pleural effusion, presents c/o of weakness of 1-2 weeks duration and abdominal cramping of 1 day duration #ALEKSANDER, elevated Cre b/l hydronephrosis s/p ureteral stents Discussed with pts family about pt's status and explained her current medical problems. Family and pt verified understanding. Cre 3.3 and BUN improved Discussed with Dr. Garcia- recommended the d/c castellanos today, recom to reach out to Dr. Lester for duration of nephrostomy Spoke to Dr. Lester's office, he is in procedure, left a message- will f/u #Leukocytosis white count normalized #New Systolic CHF carvedolol 3.125 BID Progressive renal dysfunction precludes use of Entresto, ACEI, ARB, or spironolactone at this time. Consider hydralazine + nitrate after pt's renal function as stabilized #Hyperkalemia Potassium 4.8 today, down trending #Macrocytic Anemia ? sec to CTx vs chronic disease vs marrow infiltration by tumor process. Hb improved Ferrous sulfate #Right forearm Cellulitis Abx switched to PO keflex- Discussed with Dr. Joiner, recommended to d/c abx in 2 -3 days once pt's symptoms have fully improved LE MRI ordered by heme/onc- pending #Right pelvic mass US bladder- cystic mass like density right hemipelvis- irregular mass like density if its anterior wall. #Abdominal cramping/Generalized spasm likely 2/2 to dehydration 2/2 Failure to thrive vs Navelbine adverse effect now resolved Waiting for neurosurgery consult- Dr. Karla Huerta prn Diet regular IVF 1/2 NS Discussed with Heme/onc resident- Pt is to f/u with her oncologist outpt for continuation of treatment #Decreased mood Will memorial counselor and consider antidepressants if needed #DVTppx hep sq TID FEN monitor lytes Regular diet 1/2 NS at 75 Dispo: cont Abx, f/u w/ neuro, f/u with cardio, f/u nephro, f/u Labs, f/u heme/ onc for official plan Visit type - Emergency Visit Emergency Visit: Yes ED Registration Date: 09/17/19 Care time: The patient presented to the Emergency Department on the above date and was hospitalized for further evaluation of their emergent condition. - New Patient This patient is new to me today: Yes Date on this admission: 09/29/19 - Critical Care Critical Care patient: No - Discharge Referral Referred to [facility] Med P.C.: No ATTENDING PHYSICIAN STATEMENT I saw and evaluated the patient. I reviewed the resident's note and discussed the case with the resident. I agree with the resident's findings and plan as documented. SUBJECTIVE: OBJECTIVE: ASSESSMENT AND PLAN:
--- NOTE | 2019-09-29 18:08 | PN ---
Progress Note, Physician History of Present Illness: Pt seen and examined at bedside. She is awake and alert. She denies shortness of breath. - Current Medication List Current Medications: Active Medications Acetaminophen (Tylenol -) 650 mg PO Q6H PRN PRN Reason: Fever Or Pain 1-3 Albuterol/Ipratropium (Duoneb -) 1 amp NEB RTID [facility] Last Admin: 09/29/19 16:05 Dose: 1 amp Artificial Tears (Artificial Tears) 1 drop OU BID PRN PRN Reason: DRY EYES Calcitonin (Miacalcin [place] -) 1 spray NS DAILY [facility] Last Admin: 09/29/19 09:08 Dose: 1 spray Carvedilol (Coreg -) 3.125 mg PO BID [facility] Last Admin: 09/29/19 09:08 Dose: 3.125 mg Cephalexin HCl (Keflex -) 500 mg PO DAILY [facility] Last Admin: 09/29/19 09:08 Dose: 500 mg Cholecalciferol (Vitamin D3 -) 3,000 unit PO DAILY [facility] Last Admin: 09/29/19 09:08 Dose: 3,000 unit Fentanyl (Sublimaze Injection -) 25 mcg IVPUSH [id number] PRN PRN Reason: PAIN-PACU ORDER X 4 DOSES ONLY Sodium Chloride (1/2 Normal Saline) 1,000 mls @ 75 mls/hr IV ASDIR [facility] Last Admin: 09/29/19 13:51 Dose: Not Given Ondansetron HCl (Zofran -) 4 mg PO TID [facility] Last Admin: 09/29/19 13:51 Dose: 4 mg Ondansetron HCl (Zofran Injection) 4 mg IVPUSH Q6H PRN PRN Reason: NAUSEA AND/OR VOMITING - Objective Vital Signs: Vital Signs Temperature 97.2 F L 09/29/19 15:13 Pulse Rate 92 H 09/29/19 15:13 Respiratory Rate 18 09/29/19 15:13 Blood Pressure 105/58 L 09/29/19 15:13 O2 Sat by Pulse Oximetry (%) 95 09/29/19 09:00 Constitutional: Yes: Calm Eyes: Yes: Conjunctiva Clear HENT: Yes: Atraumatic Neck: Yes: Supple Cardiovascular: Yes: S1, S2 Respiratory: Yes: CTA Bilaterally Gastrointestinal: Yes: Soft Genitourinary: Yes: [place] Present, Other (left nephrostomy tube) Neurological: Yes: Oriented Psychiatric: Yes: Oriented Labs: CBC, BMP 09/28/19 07:05 09/29/19 07:30 INR, PTT INR 1.01 (0.83-1.09) 09/13/19 14:40 Assessment/Plan Current Medications Generic Name Dose Route Start Last Admin Trade Name Freq PRN Reason Stop Dose Admin Acetaminophen 650 mg 09/23/19 13:24 Tylenol - PO Q6H PRN Fever Or Pain 1-3 Albuterol/Ipratropium 1 amp 09/23/19 14:00 09/29/19 16:05 Duoneb - NEB 1 amp RTID [facility] Administration Artificial Tears 1 drop 09/23/19 13:24 Artificial Tears OU BID PRN DRY EYES Calcitonin 1 spray 09/24/19 10:00 09/29/19 09:08 Miacalcin [place] - NS 1 spray DAILY [facility] Administration Carvedilol 3.125 mg 09/23/19 22:00 09/29/19 09:08 Coreg - PO 3.125 mg BID [facility] Administration Cephalexin HCl 500 mg 09/25/19 16:45 09/29/19 09:08 Keflex - PO 500 mg DAILY [facility] Administration Cholecalciferol 3,000 unit 09/24/19 10:00 09/29/19 09:08 Vitamin D3 - PO 3,000 unit DAILY [facility] Administration Fentanyl 25 mcg 09/23/19 14:29 Sublimaze Injection - IVPUSH [id number] PRN PAIN-PACU ORDER X 4 DOSES ONLY Sodium Chloride 1,000 mls @ 75 mls/hr 09/24/19 13:00 09/29/19 13:51 1/2 Normal Saline IV Not Given ASDIR [facility] Ondansetron HCl 4 mg 09/23/19 14:00 09/29/19 13:51 Zofran - PO 4 mg TID [facility] Administration Ondansetron HCl 4 mg 09/23/19 14:29 Zofran Injection IVPUSH Q6H PRN NAUSEA AND/OR VOMITING Impression 1. CKD 2. leukopenia 3. obstructive uropathy with bilateral hydro 4. breast cancer with mets 5. HTN 6. hyperlipidemia 7. anemia 8. ALEKSANDER 9. CHF Plan - renal function improving - replace mag - cont fluids - repeat labs in am - monitor urine output - avoid nsaids Dr Land
[2019-09-30] MEDS: ONDANSETRON 4 MG TABLET PO SCH ×3 (05:32→21:54)
[2019-09-30 08:31] LABS: HEMOGLOBIN 9.2 GM/dL (10.7-15.3); MCH 33.3 pg (25.7-33.7); MEAN CELL VOLUME 97.8 fl (80-96); MEAN PLT VOLUME 9.1 fl (7.5-11.1); PLATELET COUNT 190 K/MM3 (134-434); RBC 2.76 M/mm3 (3.60-5.2); RDW 16.4 % (11.6-15.6); WHITE BLOOD COUNT 8.5 K/mm3 (4.0-10.0)
[2019-09-30] MEDS: ALBUTEROL SO4 2.5/IPRATROPIUM 0.5 INH SOL 3 ML VIAL.NEB. NEB SCH ×3 (08:53→20:35)
[2019-09-30 09:17] LABS: ALBUMIN 2.4 g/dl (3.4-5.0); BILIRUBIN,TOTAL 0.4 mg/dL (0.2-1); BLOOD UREA NITROGEN 77.6 mg/dL (7-18); CALCIUM 9.4 mg/dL (8.5-10.1); CREATININE 2.8 mg/dL (0.55-1.3); PHOSPHOROUS 5.7 mg/dL (2.5-4.9); POTASSIUM 4.4 mmol/L (3.5-5.1); TOT PROT 5.9 g/dl (6.4-8.2)
[2019-09-30] MEDS ORDERED: PT OWN MED DRAWER 7, Y5N ONE ×3 (09:23→17:23)
[2019-09-30] MEDS: CARVEDILOL 3.125 MG TABLET (FP) PO SCH ×2 (10:23→21:54)
[2019-09-30] MEDS: CALCITONIN - SALMON SYNTHETIC 200 UNITS/SPRAY NS SCH (10:23)
[2019-09-30] MEDS: CHOLECALCIFEROL (VIT D3) 1,000 UNIT (25 MCG) TABLET PO SCH (10:23)
[2019-09-30] MEDS: CEPHALEXIN MONOHYDRATE 500 MG CAPSULE (UD) PO SCH (10:23)
--- NOTE | 2019-09-30 11:09 | PN ---
Progress Note (short form) - Note Progress Note: Resting in NAD. Denies shortness of breath or chest pain. No acute events overnight. Intake & Output 09/27/19 09/28/19 09/29/19 09/30/19 23:59 23:59 23:59 23:59 Intake Total 770 840 550 300 Output Total 4400 1500 2075 400 Balance -3630 -660 -1525 -100 Last Vital Signs Temp Pulse Resp BP Pulse Ox 98.6 F 88 20 107/52 L 95 09/30/19 10:00 09/30/19 10:00 09/30/19 10:00 09/30/19 10:00 09/29/19 21:00 Active Medications Acetaminophen (Tylenol -) 650 mg PO Q6H PRN PRN Reason: Fever Or Pain 1-3 Albuterol/Ipratropium (Duoneb -) 1 amp NEB RTID [facility] Last Admin: 09/30/19 08:53 Dose: 1 amp Artificial Tears (Artificial Tears) 1 drop OU BID PRN PRN Reason: DRY EYES Calcitonin (Miacalcin [place] -) 1 spray NS DAILY [facility] Last Admin: 09/30/19 10:23 Dose: 1 spray Carvedilol (Coreg -) 3.125 mg PO BID [facility] Last Admin: 09/30/19 10:23 Dose: 3.125 mg Cephalexin HCl (Keflex -) 500 mg PO DAILY [facility] Last Admin: 09/30/19 10:23 Dose: 500 mg Cholecalciferol (Vitamin D3 -) 3,000 unit PO DAILY [facility] Last Admin: 09/30/19 10:23 Dose: 3,000 unit Fentanyl (Sublimaze Injection -) 25 mcg IVPUSH [id number] PRN PRN Reason: PAIN-PACU ORDER X 4 DOSES ONLY Sodium Chloride (1/2 Normal Saline) 1,000 mls @ 75 mls/hr IV ASDIR [facility] Last Admin: 09/29/19 13:51 Dose: Not Given Ondansetron HCl (Zofran -) 4 mg PO TID [facility] Last Admin: 09/30/19 05:32 Dose: 4 mg Ondansetron HCl (Zofran Injection) 4 mg IVPUSH Q6H PRN PRN Reason: NAUSEA AND/OR VOMITING Gen: NAD at rest Heart: RRR Lung: decreased breath sounds at the bases Abd: soft, nontender, Intact ostomy Ext: no edema Laboratory Results - last 24 hr 09/30/19 09/30/19 07:50 07:50 WBC 8.5 RBC 2.76 L Hgb 9.2 L Hct 27.0 L MCV 97.8 H MCH 33.3 MCHC 34.0 RDW 16.4 H Plt Count 190 MPV 9.1 Sodium 138 Potassium 4.4 Chloride 105 Carbon Dioxide 26 Anion Gap 7 L BUN 77.6 H Creatinine 2.8 H Est GFR (CKD-EPI)AfAm 18.64 Est GFR (CKD-EPI)NonAf 16.08 Random Glucose 107 H Calcium 9.4 Phosphorus 5.7 H Magnesium 2.0 Total Bilirubin 0.4 AST 55 H ALT 15 Alkaline Phosphatase 211 H Total Protein 5.9 L Albumin 2.4 L A/P Acute on Chronic Diastolic Heart Failure Acute on Chronic Renal Faiulre Bilateral Hydronephrosis Cellulitis Sepsis Metastatic Breast Ca HTN Hyperlipidemia Anemia - Off antibiotics - holding lasix - monitor urine output, creatinine - O2 as needed - inhaled bronchodilators - DVT prophylaxis Dr Brooke
[2019-09-30] MEDS: SODIUM CHLORIDE 0.45% 1,000 ML IV SCH (14:17)
--- NOTE | 2019-09-30 14:39 | PN ---
Physical Exam: SUBJECTIVE: Patient seen and examined. Afebrile and asymptomatic today. Nephrostomy bag draining normal yellow urine. Castellanos was d/azucena yesterday, pt retained twice today morning, one time 600 and straight cathed, 2nd was 700 and castellanos was placed back. Denies f/c/n/v/d/sob, chest pain. OBJECTIVE: Vital Signs Period Temp Pulse Resp BP Sys/Avila Pulse Ox Last 24 Hr 97.2 F-98.6 F 88-99 18-20 105-128/52-63 95-95 GENERAL: The patient is awake, alert. Pt is much improved today. EYES: PERRL, extraocular movements intact, sclera anicteric, conjunctiva clear. ENT: oropharynx clear without exudates, moist mucous membranes. NECK: Trachea midline, full range of motion, supple. LUNGS: Breath sounds equal, clear to auscultation bilaterally, no wheezes, no crackles, HEART: Regular rate and rhythm, S1, S2 without murmur, rub or gallop. ABDOMEN: Soft, nontender, nondistended, normoactive bowel sounds, no guarding, Colostomy bag on the right- draining semi-solid stool. Left nephrostomy tube in place- draining normal colored urine. Castellanos placed back- draining urine EXTREMITIES: 2+ pulses, warm, well-perfused, no edema. RUE erythema improved, swelling improved NEUROLOGICAL: Cranial nerves II through XII grossly intact. Normal speech PSYCH: Normal mood, normal affect. Laboratory Results - last 24 hr 09/30/19 09/30/19 07:50 07:50 WBC 8.5 RBC 2.76 L Hgb 9.2 L Hct 27.0 L MCV 97.8 H MCH 33.3 MCHC 34.0 RDW 16.4 H Plt Count 190 MPV 9.1 Sodium 138 Potassium 4.4 Chloride 105 Carbon Dioxide 26 Anion Gap 7 L BUN 77.6 H Creatinine 2.8 H Est GFR (CKD-EPI)AfAm 18.64 Est GFR (CKD-EPI)NonAf 16.08 Random Glucose 107 H Calcium 9.4 Phosphorus 5.7 H Magnesium 2.0 Total Bilirubin 0.4 GGT 121 H AST 55 H ALT 15 Alkaline Phosphatase 211 H Total Protein 5.9 L Albumin 2.4 L Active Medications Current Medications Acetaminophen (Tylenol -) 650 mg PO Q6H PRN PRN Reason: Fever Or Pain 1-3 Albuterol/Ipratropium (Duoneb -) 1 amp NEB RTID [facility] Last Admin: 09/30/19 08:53 Dose: 1 amp Artificial Tears (Artificial Tears) 1 drop OU BID PRN PRN Reason: DRY EYES Calcitonin (Miacalcin [place] -) 1 spray NS DAILY [facility] Last Admin: 09/30/19 10:23 Dose: 1 spray Carvedilol (Coreg -) 3.125 mg PO BID [facility] Last Admin: 09/30/19 10:23 Dose: 3.125 mg Cephalexin HCl (Keflex -) 500 mg PO DAILY [facility] Last Admin: 09/30/19 10:23 Dose: 500 mg Cholecalciferol (Vitamin D3 -) 3,000 unit PO DAILY [facility] Last Admin: 09/30/19 10:23 Dose: 3,000 unit Fentanyl (Sublimaze Injection -) 25 mcg IVPUSH [id number] PRN PRN Reason: PAIN-PACU ORDER X 4 DOSES ONLY Sodium Chloride (1/2 Normal Saline) 1,000 mls @ 75 mls/hr IV ASDIR [facility] Last Admin: 09/30/19 14:17 Dose: Not Given Ondansetron HCl (Zofran -) 4 mg PO TID [facility] Last Admin: 09/30/19 14:16 Dose: 4 mg Ondansetron HCl (Zofran Injection) 4 mg IVPUSH Q6H PRN PRN Reason: NAUSEA AND/OR VOMITING Home Medications Medication Instructions Recorded Calcium Citrate/Magnesium/D3 2 tab PO DAILY 05/08/17 [Calcium Citrate Chewable Wafer] Cholecalciferol (Vitamin D3) 3,000 unit PO DAILY 05/08/17 [Vitamin D3] Vitamin B Complex 1 each PO DAILY 05/08/17 Ferrous Sulfate [Feosol] 325 mg PO DAILY 01/15/18 Magnesium Citrate 800 mg PO DAILY 01/15/18 Cyclobenzaprine HCl 10 mg PO Q8H 09/13/19 Ondansetron HCl [Zofran] 4 mg PO Q8H 09/13/19 Tramadol HCl 50 mg PO Q8H 09/13/19 Microbiology 09/27/19 16:47 Stool Clostridioides difficile Antigen - Final 09/27/19 16:47 Stool Clostridioides difficile Toxin Assay - Final 09/24/19 18:12 Urine - Urine Nephrostomy Tube Left Urine Culture - Final NO GROWTH OBTAINED 09/19/19 14:00 Rectal Swab Salmonella/Shigella Culture - Final NO GROWTH OF SALMONELLA OR SHIGELLA SPECIES OBTAINED 09/19/19 14:00 Rectal Swab Campylobacter Culture - Final NO GROWTH OF CAMPYLOBACTER SPECIES OBTAINED 09/19/19 14:00 Rectal Swab Yersinia Culture - Final NO GROWTH OF YERSINIA SPECIES OBTAINED 09/19/19 14:00 Rectal Swab Vibrio Culture - Final NO GROWTH OF VIBRIO SPECIES OBTAINED 09/19/19 14:00 Rectal Swab Escherichia coli 0157 Culture - Final NO GROWTH OF E COLI 0157 OBTAINED 09/19/19 14:00 Stool Clostridioides difficile Antigen - Final 09/19/19 14:00 Stool Clostridioides difficile Toxin Assay - Final 09/19/19 14:00 Colon Fluid Gram Stain - Final 09/18/19 11:30 Urine - Urine Clean Catch Urine Culture - Final NO GROWTH OBTAINED 09/13/19 14:45 Blood - Peripheral Venous Blood Culture - Final NO GROWTH AFTER 5 DAYS INCUBATION 09/13/19 14:45 Blood - Peripheral Venous Blood Culture - Final NO GROWTH AFTER 5 DAYS INCUBATION 09/13/19 14:50 Urine - Urine Clean Catch Urine Culture - Final NO GROWTH OBTAINED ASSESSMENT/PLAN: 73 y/o F, pmh of Breast cancer stage 3A w/ mets to the spine, peritoneal cavity , colon, spine, s/p right mastectomy, s/p radiation, b/l ureteral stents w/ b/l hydro, mild b/l pleural effusion, presents c/o of weakness of 1-2 weeks duration and abdominal cramping of 1 day duration #ALEKSANDER, elevated Cre b/l hydronephrosis s/p ureteral stents Discussed with pts family about pt's status and explained her current medical problems. Family and pt verified understanding. Cre 2.8 and BUN improved Discussed with Dr. Garcia- sent pt home on castellanos and f/u within 3-5 days. Spoke to Radiology, Megan on behalf of Dr. Lester, he is in procedure, recommends sending pt home w/ Nephrostomy bag and f/u with Dr. Lester in 3 months. F/u with Urology. Contact insurance for replacement bags and dressing supplies. Discussed with Palliative to see pt #Elevated ALP likely 2/2 to metastatic process of bones vs biliary disease GGt ordered US abd ordered #New Systolic CHF carvedolol 3.125 BID Progressive renal dysfunction precludes use of Entresto, ACEI, ARB, or spironolactone at this time. Consider hydralazine + nitrate after pt's renal function as stabilized #Macrocytic Anemia ? sec to CTx vs chronic disease vs marrow infiltration by tumor process. Hb improved Ferrous sulfate #Right forearm Cellulitis Abx switched to PO keflex- Discussed with Dr. Joiner, recommended to d/c abx in 2 -3 days once pt's symptoms have fully improved LE MRI ordered by heme/onc- pending #Right pelvic mass US bladder- cystic mass like density right hemipelvis- irregular mass like density if its anterior wall. #Abdominal cramping/Generalized spasm likely 2/2 to dehydration 2/2 Failure to thrive vs Navelbine adverse effect now resolved Waiting for neurosurgery consult- Dr. Acosta Flexmichaelle prn Diet regular IVF 1/2 NS Discussed with Heme/onc resident- Pt is to f/u with her oncologist outpt for continuation of treatment #Decreased mood Will child guidance counselor and consider antidepressants if needed #DVTppx hep sq TID FEN monitor lytes Regular diet 1/2 NS at 75 Dispo: cont Abx, f/u w/ neuro, f/u with cardio, f/u nephro, f/u Labs, f/u heme/ onc for official plan, f/u palliative care Visit type - Emergency Visit Emergency Visit: Yes ED Registration Date: 09/17/19 Care time: The patient presented to the Emergency Department on the above date and was hospitalized for further evaluation of their emergent condition. - New Patient This patient is new to me today: Yes Date on this admission: 10/01/19 - Critical Care Critical Care patient: No - Discharge Referral Referred to [facility] Med P.C.: No ATTENDING PHYSICIAN STATEMENT I saw and evaluated the patient. I reviewed the resident's note and discussed the case with the resident. I agree with the resident's findings and plan as documented. SUBJECTIVE: OBJECTIVE: ASSESSMENT AND PLAN:
--- NOTE | 2019-09-30 18:05 | PN ---
Progress Note, Physician Chief Complaint: Pt finished only small portion of dinner. Asks, "when do you think I can go back to work?". History of Present Illness: 73 y/o white woman with pmh of Breast cancer stage 3A w/ mets to the spine, peritoneal cavity, colon, and spine, currently off chemoRx with Navelbine, s/p right mastectomy, s/p radiation Rx; bilateral hydronephrosis, s/p fariha ureteral stents; "CHF", now admitted with c/o of weakness of 1-2 weeks duration and abdominal cramping of 1 day duration. She reports that 2 weeks ago she came off chemotherapy under Dr. Edward's supervision and had a CAT scan completed showing R>L effusion. She also reports that she has never needed a walker, but has started to use one since her weakness began. She has been on and off chemo for 2 years now. She reports ALCOCER when walking fast, and bilateral LE edema, but denies LOC, dizziness, head trauma, palpitations, vertigo, tinnitus, chest pain , shortness of breath, orthopnea, PND. - Current Medication List Current Medications: Active Medications Acetaminophen (Tylenol -) 650 mg PO Q6H PRN PRN Reason: Fever Or Pain 1-3 Albuterol/Ipratropium (Duoneb -) 1 amp NEB RTID [facility] [place] Last Admin: 09/30/19 14:00 Dose: 1 amp Artificial Tears (Artificial Tears) 1 drop OU BID PRN PRN Reason: DRY EYES Calcitonin (Miacalcin [place] -) 1 spray NS DAILY [facility] [place] Last Admin: 09/30/19 10:23 Dose: 1 spray Carvedilol (Coreg -) 3.125 mg PO BID [facility] [place] Last Admin: 09/30/19 10:23 Dose: 3.125 mg Cephalexin HCl (Keflex -) 500 mg PO DAILY [facility] [place] Last Admin: 09/30/19 10:23 Dose: 500 mg Cholecalciferol (Vitamin D3 -) 3,000 unit PO DAILY [facility] [place] Last Admin: 09/30/19 10:23 Dose: 3,000 unit Fentanyl (Sublimaze Injection -) 25 mcg IVPUSH [id number] PRN PRN Reason: PAIN-PACU ORDER X 4 DOSES ONLY Sodium Chloride (1/2 Normal Saline) 1,000 mls @ 75 mls/hr IV ASDIR [facility] [place] Last Admin: 09/30/19 14:17 Dose: Not Given Ondansetron HCl (Zofran -) 4 mg PO TID [facility] [place] Last Admin: 09/30/19 14:16 Dose: 4 mg Ondansetron HCl (Zofran Injection) 4 mg IVPUSH Q6H PRN PRN Reason: NAUSEA AND/OR VOMITING - Objective Vital Signs: Vital Signs Temperature 98.5 F 09/30/19 13:47 Pulse Rate 89 09/30/19 13:47 Respiratory Rate 09/30/19 13:47 Blood Pressure 109/63 09/30/19 13:47 O2 Sat by Pulse Oximetry (%) 95 09/30/19 09:00 Constitutional: Yes: Calm Eyes: Yes: WNL HENT: Yes: WNL Neck: Yes: WNL Cardiovascular: Yes: S1, S2 Respiratory: Yes: Regular Gastrointestinal: Yes: Soft ...Rectal Exam: Yes: Deferred Genitourinary: No: Anuria Breast(s): Yes: WNL Musculoskeletal: Yes: Muscle Weakness Extremities: Yes: Cool Edema: No Peripheral Pulses WNL: Yes Integumentary: Yes: WNL Neurological: Yes: Confusion, Weakness Psychiatric: Yes: Alert, Other Labs: CBC, BMP 09/30/19 07:50 09/30/19 07:50 INR, PTT INR 1.01 (0.83-1.09) 09/13/19 14:40 Abnormal Lab Results 09/30/19 09/30/19 07:50 07:50 RBC 2.76 L Hgb 9.2 L Hct 27.0 L MCV 97.8 H RDW 16.4 H Anion Gap 7 L BUN 77.6 H Creatinine 2.8 H Random Glucose 107 H Phosphorus 5.7 H GGT 121 H AST 55 H Alkaline Phosphatase 211 H Total Protein 5.9 L Albumin 2.4 L Problem List - Problems (1) Acute on chronic systolic (congestive) heart failure Assessment/Plan: ECHO: Severely reduced LVEF (20%); minimal-mild aortic stenosis (may be underestimated due to poor LVEF). On carvedilol 3.125 mg bid; increase dose when and if BP allows. Progressive renal dysfunction precludes use of Entresto, ACEI, ARB, or spironolactone at this time. Consider hydralazine + nitrate if BP allows. F/u BUN/Cr, electrolytes, daily weight, Is and Os. (now s/p cystoscopy and bilateral ureteral stent change). Code(s): I50.23 - ACUTE ON CHRONIC SYSTOLIC (CONGESTIVE) HEART FAILURE (2) Anemia Code(s): D64.9 - ANEMIA, UNSPECIFIED (3) Metastasis from malignant tumor of breast Assessment/Plan: f/u with hem/oncologist. Code(s): C79.9 - SECONDARY MALIGNANT NEOPLASM OF UNSPECIFIED SITE; C50.919 - MALIGNANT NEOPLASM OF UNSP SITE OF UNSPECIFIED FEMALE BREAST (4) Leukocytosis Code(s): D72.829 - ELEVATED WHITE BLOOD CELL COUNT, UNSPECIFIED Qualifiers: Leukocytosis type: unspecified Qualified Code(s): D72.829 - Elevated white blood cell count, unspecified (5) Renal dysfunction Assessment/Plan: s/p cystoscopy, ureteral stent Code(s): N28.9 - DISORDER OF KIDNEY AND URETER, UNSPECIFIED
--- NOTE | 2019-09-30 18:27 | PN ---
Progress Note, Physician History of Present Illness: Pt seen and examined at bedside. She is awake and alert. She denies shortness of breath. - Current Medication List Current Medications: Active Medications Acetaminophen (Tylenol -) 650 mg PO Q6H PRN PRN Reason: Fever Or Pain 1-3 Albuterol/Ipratropium (Duoneb -) 1 amp NEB RTID [facility] Last Admin: 09/30/19 14:00 Dose: 1 amp Artificial Tears (Artificial Tears) 1 drop OU BID PRN PRN Reason: DRY EYES Calcitonin (Miacalcin [place] -) 1 spray NS DAILY [facility] Last Admin: 09/30/19 10:23 Dose: 1 spray Carvedilol (Coreg -) 3.125 mg PO BID [facility] Last Admin: 09/30/19 10:23 Dose: 3.125 mg Cephalexin HCl (Keflex -) 500 mg PO DAILY [facility] Last Admin: 09/30/19 10:23 Dose: 500 mg Cholecalciferol (Vitamin D3 -) 3,000 unit PO DAILY [facility] Last Admin: 09/30/19 10:23 Dose: 3,000 unit Fentanyl (Sublimaze Injection -) 25 mcg IVPUSH [id number] PRN PRN Reason: PAIN-PACU ORDER X 4 DOSES ONLY Sodium Chloride (1/2 Normal Saline) 1,000 mls @ 75 mls/hr IV ASDIR [facility] Last Admin: 09/30/19 14:17 Dose: Not Given Ondansetron HCl (Zofran -) 4 mg PO TID [facility] Last Admin: 09/30/19 14:16 Dose: 4 mg Ondansetron HCl (Zofran Injection) 4 mg IVPUSH Q6H PRN PRN Reason: NAUSEA AND/OR VOMITING - Objective Vital Signs: Vital Signs Temperature 98.5 F 09/30/19 13:47 Pulse Rate 89 09/30/19 13:47 Respiratory Rate 20 09/30/19 13:47 Blood Pressure 109/63 09/30/19 13:47 O2 Sat by Pulse Oximetry (%) 95 09/30/19 09:00 Constitutional: Yes: Calm Eyes: Yes: Conjunctiva Clear HENT: Yes: Atraumatic Cardiovascular: Yes: S1, S2 Respiratory: Yes: CTA Bilaterally Gastrointestinal: Yes: Soft Genitourinary: Yes: Bahena Present, Other (left nephrostomy) Musculoskeletal: Yes: WNL Edema: No Neurological: Yes: Oriented Psychiatric: Yes: Oriented Labs: CBC, BMP 09/30/19 07:50 09/30/19 07:50 INR, PTT INR 1.01 (0.83-1.09) 09/13/19 14:40 Assessment/Plan Current Medications Generic Name Dose Route Start Last Admin Trade Name Freq PRN Reason Stop Dose Admin Acetaminophen 650 mg 09/23/19 13:24 Tylenol - PO Q6H PRN Fever Or Pain 1-3 Albuterol/Ipratropium 1 amp 09/23/19 14:00 09/30/19 14:00 Duoneb - NEB 1 amp RTID [facility] Administration Artificial Tears 1 drop 09/23/19 13:24 Artificial Tears OU BID PRN DRY EYES Calcitonin 1 spray 09/24/19 10:00 09/30/19 10:23 Miacalcin [place] - NS 1 spray DAILY [facility] Administration Carvedilol 3.125 mg 09/23/19 22:00 09/30/19 10:23 Coreg - PO 3.125 mg BID [facility] Administration Cephalexin HCl 500 mg 09/25/19 16:45 09/30/19 10:23 Keflex - PO 500 mg DAILY [facility] Administration Cholecalciferol 3,000 unit 09/24/19 10:00 09/30/19 10:23 Vitamin D3 - PO 3,000 unit DAILY [facility] Administration Fentanyl 25 mcg 09/23/19 14:29 Sublimaze Injection - IVPUSH [id number] PRN PAIN-PACU ORDER X 4 DOSES ONLY Sodium Chloride 1,000 mls @ 75 mls/hr 09/24/19 13:00 09/30/19 14:17 1/2 Normal Saline IV Not Given ASDIR [facility] Ondansetron HCl 4 mg 09/23/19 14:00 09/30/19 14:16 Zofran - PO 4 mg TID [facility] Administration Ondansetron HCl 4 mg 09/23/19 14:29 Zofran Injection IVPUSH Q6H PRN NAUSEA AND/OR VOMITING Impression 1. CKD 2. leukopenia 3. obstructive uropathy with bilateral hydro 4. breast cancer with mets 5. HTN 6. hyperlipidemia 7. anemia 8. ALEKSANDER 9. CHF Plan - radiographer angiogram continues to improve - monitor urine output - repeat labs in am - encourage po intake - avoid nsaids Dr Land
--- NOTE | 2019-09-30 18:33 | PN ---
Progress Note (short form) - Note Progress Note: pt failed TOV. recommend leaving in the castellanos until she is stonger overall. maintain left PCN as well Problem List - Problems (1) Hydronephrosis Code(s): N13.30 - UNSPECIFIED HYDRONEPHROSIS Qualifiers: Hydronephrosis type: unspecified Qualified Code(s): N13.30 - Unspecified hydronephrosis
--- NOTE | 2019-09-30 20:07 | PN ---
Progress Note (short form) - Note Progress Note: Patient seen and examined Minimal hematuria Nephrostomy urine - clear Remains weak and debilitated Kidney function improving Last Vital Signs Temp Pulse Resp BP Pulse Ox 98.5 F 89 20 109/63 95 09/30/19 13:47 09/30/19 13:47 09/30/19 13:47 09/30/19 13:47 09/30/19 09:00 Lungs - clear Cor _RSR Abd - functioning colostomy Nephrostomy Bahena No significant edema CBC, BMP 09/30/19 07:50 09/30/19 07:50 Current Medications Generic Name Dose Route Start Last Admin Trade Name Freq PRN Reason Stop Dose Admin Acetaminophen 650 mg 09/23/19 13:24 Tylenol - PO Q6H PRN Fever Or Pain 1-3 Albuterol/Ipratropium 1 amp 09/23/19 14:00 09/30/19 14:00 Duoneb - NEB 1 amp RTID [facility] Administration Artificial Tears 1 drop 09/23/19 13:24 Artificial Tears OU BID PRN DRY EYES Calcitonin 1 spray 09/24/19 10:00 09/30/19 10:23 Miacalcin [place] - NS 1 spray DAILY [facility] Administration Carvedilol 3.125 mg 09/23/19 22:00 09/30/19 10:23 Coreg - PO 3.125 mg BID [facility] Administration Cephalexin HCl 500 mg 09/25/19 16:45 09/30/19 10:23 Keflex - PO 500 mg DAILY [facility] Administration Cholecalciferol 3,000 unit 09/24/19 10:00 09/30/19 10:23 Vitamin D3 - PO 3,000 unit DAILY [facility] Administration Fentanyl 25 mcg 09/23/19 14:29 Sublimaze Injection - IVPUSH [id number] PRN PAIN-PACU ORDER X 4 DOSES ONLY Sodium Chloride 1,000 mls @ 75 mls/hr 09/24/19 13:00 09/30/19 14:17 1/2 Normal Saline IV Not Given ASDIR [facility] Ondansetron HCl 4 mg 09/23/19 14:00 09/30/19 14:16 Zofran - PO 4 mg TID [facility] Administration Ondansetron HCl 4 mg 09/23/19 14:29 Zofran Injection IVPUSH Q6H PRN NAUSEA AND/OR VOMITING Impression: Metastatic breast ca S/P nephrostomy and stnt chnage on right and removal on left CKD ALEKSANDER anemia Continue to monitor Needs aggressive PT.
[2019-10-01] MEDS: ONDANSETRON 4 MG TABLET PO SCH ×3 (06:33→21:37)
--- NOTE | 2019-10-01 08:01 | PN ---
Teaching Attending Note Name of Resident: Toñito Quintana ATTENDING PHYSICIAN STATEMENT I saw and evaluated the patient. I reviewed the resident's note and discussed the case with the resident. I agree with the resident's findings and plan as documented. Seen and examined; please see resident note for further historical information. I personally verified all limon historical information and exam findings. Personally interpreted all imaging and diagnostics and reviewed appropriate consults. I reviewed all labs and vital signs as per resident note and EMR as documented. I agree with the above assessment and plan unless supplemented by myself in the following. 10 item review of systems completed and is negative aside from as discussed in the subjective data in my own/the resident documentation. VS, labs, imaging reviewed NAD, AAO, resting comfortably in bed. RRR s1/2 no mgr Normal muscle tone, moves all 5 extremities with normal apparent strength Neck is supple, trachea midline, no errol LN Lungs CTAB with sym expansion NT ND +BS no erorl organomegaly CN2-12 wnl; no FND NC AT EOMI PERRLA Normal mood, appropriate behavior, euthymic affect No skin breakdown or rashes noted Assessment and plan: Patient continues to have pain and is improved in terms of her renal failure and is status post nephrostomy day 6. We will reintroduce failure medications as needed per cardiology and we will continue to defer to hematology oncology for the overall goals of care given close patient relationship with palliative chemotherapy versus palliative care. She has no progressive neuropathic symptoms. -Worsening renal failure, status post stenting with worsening hydronephrosis. -Sepsis secondary to cellulitis, colitis-Resolved. Transitioned to PO abx per ID. -Metastatic breast cancer -Compression fracture of the lumbar spine, L4. UE pain neuropathic; considered EMG -Lumbar spinal stenosis, pending neurosurgical evaluation -Ongoing anemia of chronic disease, transfusion threshold for hemoglobin of 8 -Severe hydronephrosis status post stenting, s/p nephrostomy -Bilateral pleural effusions, right greater than left. Follow-up with interventional radiology consult to see if thoracentesis would be indicated. BNP is elevated which is secondary to either primary process but likely is shrouded by the renal retention. -Multiple lytic lesions, MRI of the lumbar spine noted. C-spine has been completed. Imaging of the femurs is noted as well. -Leukopenia, secondary to global oncologic processes -History of hypertension -History of hyperlipidemia -Severe hypoalbuminemia secondary to cancer, protein calorie malnutrition. -Hyperphosphatemia secondary to renal failure, nephrology following. Continuing to monitor -Transaminitis with elevated alkaline phosphatase, up to 151 from 141 with AST persistently elevated. Trend CMP -Leukocytosis secondary to acute sepsis, improved, continue to monitor. -Chronic lymphedema of the left arm secondary to breast cancer in the surrounding issues, complicates the cellulitis -Overweight, BMI 25
--- NOTE | 2019-10-01 08:02 | PN ---
Teaching Attending Note Name of Resident: Toñito Quintana ATTENDING PHYSICIAN STATEMENT I saw and evaluated the patient. I reviewed the resident's note and discussed the case with the resident. I agree with the resident's findings and plan as documented. Seen and examined; please see resident note for further historical information. I personally verified all limon historical information and exam findings. Personally interpreted all imaging and diagnostics and reviewed appropriate consults. I reviewed all labs and vital signs as per resident note and EMR as documented. I agree with the above assessment and plan unless supplemented by myself in the following. I spoke with the patient at length today. She states that she has had time to reflect on her illness and after discussion with oncology yesterday has elected to be DNR/DNI. We will complete the subsequent most form and paperwork and update her CODE STATUS in the computer. Furthermore, the patient is considering moving towards full on hospice care. The patient's ability to make these decisions is maintained with her current disease and she expresses capacity in a reasonable intellectual command of the matters at hand. She has no acute change in her mental status from her baseline. She will consider hospice overnight and informed the team tomorrow. She would not be in favor of continuing with aggressive treatments surrounding the resultant medical complications of her progressive oncologic illness including but not limited to thoracentesis, paracentesis, feeding tube, etc. etc. 10 item review of systems completed and is negative aside from as discussed in the subjective data in my own/the resident documentation. VS, labs, imaging reviewed NAD, AAO, resting comfortably in bed. RRR s1/2 no mgr Normal muscle tone, moves all 5 extremities with normal apparent strength Neck is supple, trachea midline, no errol LN Lungs CTAB with sym expansion NT ND +BS no errol organomegaly CN2-12 wnl; no FND NC AT EOMI PERRLA Normal mood, appropriate behavior, euthymic affect No skin breakdown or rashes noted Assessment and plan: Overall, the patient is stable. She is expressed desire to be made DNR/DNI and is considering hospice care. Will discuss with oncology service and update chart. Problems include: -Worsening renal failure, status post stenting with worsening hydronephrosis. -Sepsis secondary to cellulitis, colitis-Resolved. Transitioned to PO abx per ID. -Metastatic breast cancer -Compression fracture of the lumbar spine, L4. UE pain neuropathic; considered EMG -Lumbar spinal stenosis, pending neurosurgical evaluation -Ongoing anemia of chronic disease, transfusion threshold for hemoglobin of 8 -Severe hydronephrosis status post stenting, s/p nephrostomy -Bilateral pleural effusions, right greater than left. Follow-up with interventional radiology consult to see if thoracentesis would be indicated. BNP is elevated which is secondary to either primary process but likely is shrouded by the renal retention. -Multiple lytic lesions, MRI of the lumbar spine noted. C-spine has been completed. Imaging of the femurs is noted as well. -Leukopenia, secondary to global oncologic processes -History of hypertension -History of hyperlipidemia -Severe hypoalbuminemia secondary to cancer, protein calorie malnutrition. -Hyperphosphatemia secondary to renal failure, nephrology following. Continuing to monitor -Transaminitis with elevated alkaline phosphatase, up to 151 from 141 with AST persistently elevated. Trend CMP -Leukocytosis secondary to acute sepsis, improved, continue to monitor. -Chronic lymphedema of the left arm secondary to breast cancer in the surrounding issues, complicates the cellulitis -Overweight, BMI 25
[2019-10-01] MEDS: ALBUTEROL SO4 2.5/IPRATROPIUM 0.5 INH SOL 3 ML VIAL.NEB. NEB SCH ×3 (08:10→19:43)
--- NOTE | 2019-10-01 08:22 | PN ---
Progress Note (short form) - Note Progress Note: Resting in NAD. Denies shortness of breath or chest pain. No acute events overnight. Intake & Output 09/28/19 09/29/19 09/30/19 10/01/19 23:59 23:59 23:59 23:59 Intake Total 606 301 1803 Output Total 1500 2075 1225 1250 Balance -660 -1525 725 -1250 Last Vital Signs Temp Pulse Resp BP Pulse Ox 97.3 F L 78 18 104/55 L 95 10/01/19 05:58 10/01/19 05:58 10/01/19 05:58 10/01/19 05:58 09/30/19 21:00 Active Medications Acetaminophen (Tylenol -) 650 mg PO Q6H PRN PRN Reason: Fever Or Pain 1-3 Albuterol/Ipratropium (Duoneb -) [address] [facility] Last Admin: 09/30/19 20:35 Dose: 1 amp Artificial Tears (Artificial Tears) 1 drop OU BID PRN PRN Reason: DRY EYES Calcitonin (Miacalcin [place] -) [address] [facility] Last Admin: 09/30/19 10:23 Dose: 1 spray Carvedilol (Coreg -) 3.[address] [facility] Last Admin: 09/30/19 21:54 Dose: 3.125 mg Cephalexin HCl (Keflex -) [address] [facility] Last Admin: 09/30/19 10:23 Dose: 500 mg Cholecalciferol (Vitamin D3 -) 3,[address] [facility] Last Admin: 09/30/19 10:23 Dose: 3,000 unit Fentanyl (Sublimaze Injection -) 25 mcg IVPUSH [id number] PRN PRN Reason: PAIN-PACU ORDER X 4 DOSES ONLY Sodium Chloride (1/2 Normal Saline) 1,000 mls @ 75 mls/hr IV ASDIR [facility] Last Admin: 09/30/19 14:17 Dose: Not Given Ondansetron HCl (Zofran -) [address] [facility] Last Admin: 10/01/19 06:33 Dose: 4 mg Ondansetron HCl (Zofran Injection) 4 mg IVPUSH Q6H PRN PRN Reason: NAUSEA AND/OR VOMITING Gen: NAD at rest Heart: RRR Lung: decreased breath sounds at the bases Abd: soft, nontender, Intact ostomy Ext: no edema Laboratory Results - last 24 hr 09/30/19 09/30/19 07:50 07:50 WBC 8.5 RBC 2.76 L Hgb 9.2 L Hct 27.0 L MCV 97.8 H MCH 33.3 MCHC 34.0 RDW 16.4 H Plt Count 190 MPV 9.1 Sodium 138 Potassium 4.4 Chloride 105 Carbon Dioxide 26 Anion Gap 7 L BUN 77.6 H Creatinine 2.8 H Est GFR (CKD-EPI)AfAm 18.64 Est GFR (CKD-EPI)NonAf 16.08 Random Glucose 107 H Calcium 9.4 Phosphorus 5.7 H Magnesium 2.0 Total Bilirubin 0.4 GGT 121 H AST 55 H ALT 15 Alkaline Phosphatase 211 H Total Protein 5.9 L Albumin 2.4 L A/P Acute on Chronic Diastolic Heart Failure Acute on Chronic Renal Faiulre Bilateral Hydronephrosis Cellulitis Sepsis Metastatic Breast Ca HTN Hyperlipidemia Anemia - BD TX - Off antibiotics - holding lasix - monitor urine output, creatinine - O2 as needed - inhaled bronchodilators - DVT prophylaxis Dr Brooke
[2019-10-01] MEDS: CHOLECALCIFEROL (VIT D3) 1,000 UNIT (25 MCG) TABLET PO SCH (10:09)
[2019-10-01] MEDS: CALCITONIN - SALMON SYNTHETIC 200 UNITS/SPRAY NS SCH (10:09)
[2019-10-01] MEDS: CARVEDILOL 3.125 MG TABLET (FP) PO SCH ×2 (10:09→21:37)
[2019-10-01] MEDS: CEPHALEXIN MONOHYDRATE 500 MG CAPSULE (UD) PO SCH (10:09)
--- NOTE | 2019-10-01 11:34 | PN ---
Physical Exam: SUBJECTIVE: Patient seen and examined. Afebrile and asymptomatic today. Nephrostomy bag draining normal yellow urine. Castellanos in place. Denies f/c/n/v/d/ sob, chest pain. OBJECTIVE: Vital Signs Period Temp Pulse Resp BP Sys/Avila Pulse Ox Last 24 Hr 97.3 F-98.7 F 78-89 18-20 104-112/55-67 95 GENERAL: The patient is awake, alert. Pt is much improved today. EYES: PERRL, extraocular movements intact, sclera anicteric, conjunctiva clear. ENT: oropharynx clear without exudates, moist mucous membranes. NECK: Trachea midline, full range of motion, supple. LUNGS: Breath sounds equal, clear to auscultation bilaterally, no wheezes, no crackles, HEART: Regular rate and rhythm, S1, S2 without murmur, rub or gallop. ABDOMEN: Soft, nontender, nondistended, normoactive bowel sounds, no guarding, Colostomy bag on the right- draining semi-solid stool. Left nephrostomy tube in place- draining normal colored urine. Castellanos placed back- draining blood tinged urine- urine improving EXTREMITIES: 2+ pulses, warm, well-perfused, no edema. RUE erythema improved, swelling improved NEUROLOGICAL: Cranial nerves II through XII grossly intact. Normal speech PSYCH: Normal mood, normal affect. Laboratory Results - last 24 hr 09/30/19 07:50 Sodium 138 Potassium 4.4 Chloride 105 Carbon Dioxide 26 Anion Gap 7 L BUN 77.6 H Creatinine 2.8 H Est GFR (CKD-EPI)AfAm 18.64 Est GFR (CKD-EPI)NonAf 16.08 Random Glucose 107 H Calcium 9.4 Phosphorus 5.7 H Magnesium 2.0 Total Bilirubin 0.4 GGT 121 H AST 55 H ALT 15 Alkaline Phosphatase 211 H Total Protein 5.9 L Albumin 2.4 L Active Medications Generic Name Dose Route Start Last Admin Trade Name Freq PRN Reason Stop Dose Admin Acetaminophen 650 mg 09/23/19 13:24 Tylenol - PO Q6H PRN Fever Or Pain 1-3 Albuterol/Ipratropium 1 amp 09/23/19 14:00 10/01/19 08:10 Duoneb - NEB 1 amp RTID [facility]ICIA Administration Artificial Tears 1 drop 09/23/19 13:24 Artificial Tears OU BID PRN DRY EYES Calcitonin 1 spray 09/24/19 10:00 10/01/19 10:09 Miacalcin [place] - NS 1 spray DAILY TR[facility] Administration Carvedilol 3.125 mg 09/23/19 22:00 10/01/19 10:09 Coreg - PO 3.125 mg BID TRICIA Administration Cephalexin HCl 500 mg 09/25/19 16:45 10/01/19 10:09 Keflex - PO 500 mg DAILY [facility]IA Administration Cholecalciferol 3,000 unit 09/24/19 10:00 10/01/19 10:09 Vitamin D3 - PO 3,000 unit DAILY [facility] Administration Fentanyl 25 mcg 09/23/19 14:29 Sublimaze Injection - IVPUSH [id number] PRN PAIN-PACU ORDER X 4 DOSES ONLY Sodium Chloride 1,000 mls @ 75 mls/hr 09/24/19 13:00 09/30/19 14:17 1/2 Normal Saline IV Not Given ASDIR TRICIA Ondansetron HCl 4 mg 09/23/19 14:00 10/01/19 06:33 Zofran - PO 4 mg TID TRICIA Administration Ondansetron HCl 4 mg 09/23/19 14:29 Zofran Injection IVPUSH Q6H PRN NAUSEA AND/OR VOMITING ASSESSMENT/PLAN: 73 y/o F, pmh of Breast cancer stage 3A w/ mets to the spine, peritoneal cavity , colon, spine, s/p right mastectomy, s/p radiation, b/l ureteral stents w/ b/l hydro, mild b/l pleural effusion, presents c/o of weakness of 1-2 weeks duration and abdominal cramping of 1 day duration #ALEKSANDER, elevated Cre b/l hydronephrosis s/p ureteral stents Discussed with pts family about pt's status and explained her current medical problems. Family and pt verified understanding. Discussed with Dr. Garcia- sent pt home on castellanos and f/u within 3-5 days. Spoke to Radiology, Megan on behalf of Dr. Lester, he is in procedure, recommends sending pt home w/ Nephrostomy bag and f/u with Dr. Lester in 3 months. F/u with Urology. Contact insurance for replacement bags and dressing supplies. Discussed with Palliative to see pt As per pt, Dr. Edward had told her chemo deferred for later Dr. Flores discussed comfort care with pt, she understood and would like comfort care/ DNR/DNI. Will discuss with SW if pt can go to [place] #Elevated ALP likely 2/2 to metastatic process of bones vs biliary disease GGt elevated 121, ALP elevated 211 US abd ordered- pending #New Systolic CHF carvedolol 3.125 BID Progressive renal dysfunction precludes use of Entresto, ACEI, ARB, or spironolactone at this time. Consider hydralazine + nitrate after pt's renal function as stabilized #Macrocytic Anemia ? sec to CTx vs chronic disease vs marrow infiltration by tumor process. Hb improved Ferrous sulfate #Right forearm Cellulitis Abx switched to PO keflex- Discussed with Dr. Joiner, recommended to d/c abx in 2 -3 days once pt's symptoms have fully improved Can consider d/c tomorrow #Right pelvic mass US bladder- cystic mass like density right hemipelvis- irregular mass like density if its anterior wall. #Abdominal cramping/Generalized spasm likely 2/2 to dehydration 2/2 Failure to thrive vs Navelbine adverse effect now resolved Flexeril prn Diet regular IVF 1/2 NS Discussed with Heme/onc resident- Pt is to f/u with her oncologist outpt for continuation of treatment #Decreased mood Will child care counselor and consider antidepressants if needed #DVTppx hep sq TID FEN monitor lytes Regular diet 1/2 NS at 75 Dispo: cont Abx, f/u heme/onc for official plan, f/u with SW about SNF Visit type - Emergency Visit Emergency Visit: Yes ED Registration Date: 09/17/19 Care time: The patient presented to the Emergency Department on the above date and was hospitalized for further evaluation of their emergent condition. - New Patient This patient is new to me today: Yes Date on this admission: 10/01/19 - Critical Care Critical Care patient: No - Discharge Referral Referred to [facility] Med P.C.: No ATTENDING PHYSICIAN STATEMENT I saw and evaluated the patient. I reviewed the resident's note and discussed the case with the resident. I agree with the resident's findings and plan as documented. SUBJECTIVE: OBJECTIVE: ASSESSMENT AND PLAN:
[2019-10-01] MEDS: SODIUM CHLORIDE 0.45% 1,000 ML IV SCH (13:01)
[2019-10-01 13:11] LABS: HEMATOCRIT 26.6 % (32.4-45.2); HEMOGLOBIN 9.1 GM/dL (10.7-15.3); MCH 33.8 pg (25.7-33.7); MCHC 34.3 g/dl (32.0-36.0); MEAN CELL VOLUME 98.5 fl (80-96); MEAN PLT VOLUME 9.3 fl (7.5-11.1); PLATELET COUNT 202 K/MM3 (134-434); RDW 16.3 % (11.6-15.6); WHITE BLOOD COUNT 7.5 K/mm3 (4.0-10.0)
--- NOTE | 2019-10-01 13:47 | PN ---
Progress Note, Physician History of Present Illness: 73 y/o F, pmh of Breast cancer stage 3A w/ mets to the spine, peritoneal cavity , colon, spine currently off chem with Navelbine, s/p right mastectomy, s/p radiation, b/l ureteral stents w/ b/l hydro, mild b/l pleural effusion, initially presented c/o of weakness of 1-2 weeks duration and abdominal cramping of 1 day duration. She reports that 2 weeks ago she came off chemo under Dr. Edward's supervision and had a CAT scan completed showing R>L effusion. She also reports that she has never needed a walker but began to use one since her weakness started. She has been on and off chemo for 2 years now. She reports ALCOCER walking fast and bilateral LE edema, but denies LOC, dizziness, head trauma, palpitations, vertigo, tinnitis, chest pain, shortness of breath, orthopnea, PND. - Current Medication List Current Medications: Active Medications Acetaminophen (Tylenol -) 650 mg PO Q6H PRN PRN Reason: Fever Or Pain 1-3 Albuterol/Ipratropium (Duoneb -) 1 amp NEB RTID [facility] Last Admin: 10/01/19 13:15 Dose: Not Given Artificial Tears (Artificial Tears) 1 drop OU BID PRN PRN Reason: DRY EYES Calcitonin (Miacalcin [place] -) 1 spray NS DAILY [facility] Last Admin: 10/01/19 10:09 Dose: 1 spray Carvedilol (Coreg -) 3.125 mg PO BID [facility] Last Admin: 10/01/19 10:09 Dose: 3.125 mg Cephalexin HCl (Keflex -) 500 mg PO DAILY [facility] Last Admin: 10/01/19 10:09 Dose: 500 mg Cholecalciferol (Vitamin D3 -) 3,000 unit PO DAILY [facility] Last Admin: 10/01/19 10:09 Dose: 3,000 unit Fentanyl (Sublimaze Injection -) 25 mcg IVPUSH [id number] PRN PRN Reason: PAIN-PACU ORDER X 4 DOSES ONLY Sodium Chloride (1/2 Normal Saline) 1,000 mls @ 75 mls/hr IV ASDIR [facility] Last Admin: 10/01/19 13:01 Dose: Not Given Ondansetron HCl (Zofran -) 4 mg PO TID [facility] Last Admin: 10/01/19 06:33 Dose: 4 mg Ondansetron HCl (Zofran Injection) 4 mg IVPUSH Q6H PRN PRN Reason: NAUSEA AND/OR VOMITING - Objective Vital Signs: Vital Signs Temperature 97.3 F L 10/01/19 05:58 Pulse Rate 86 10/01/19 10:10 Respiratory Rate 18 10/01/19 10:10 Blood Pressure 112/67 10/01/19 10:10 O2 Sat by Pulse Oximetry (%) 95 09/30/19 21:00 Eyes: Yes: WNL, Conjunctiva Clear, EOM Intact HENT: Yes: WNL, Atraumatic, Normocephalic Neck: Yes: WNL, Supple, Trachea Midline Cardiovascular: Yes: WNL, Regular Rate and Rhythm Respiratory: Yes: WNL, Regular, CTA Bilaterally Gastrointestinal: Yes: WNL, Normal Bowel Sounds Genitourinary: Yes: WNL Musculoskeletal: Yes: WNL Extremities: Yes: WNL Edema: No Integumentary: Yes: WNL Neurological: Yes: WNL, Alert, Oriented ...Motor Strength: WNL Psychiatric: Yes: WNL Labs: CBC, BMP 10/01/19 12:53 INR, PTT INR 1.01 (0.83-1.09) 09/13/19 14:40 Assessment/Plan - Problems (1) Acute on chronic systolic (congestive) heart failure Assessment/Plan: ECHO: Severely reduced LVEF (20%); minimal-mild aortic stenosis (may be underestimated due to poor LVEF). On carvedilol 3.125 mg bid; increase dose when and if BP allows. Progressive renal dysfunction precludes use of Entresto, ACEI, ARB, or spironolactone at this time. Consider hydralazine + nitrate if BP allows. F/u BUN/Cr, electrolytes, daily weight, Is and Os. (now s/p cystoscopy and bilateral ureteral stent change). Code(s): I50.23 - ACUTE ON CHRONIC SYSTOLIC (CONGESTIVE) HEART FAILURE (2) Anemia Code(s): D64.9 - ANEMIA, UNSPECIFIED (3) Metastasis from malignant tumor of breast Assessment/Plan: f/u with hem/oncologist. Code(s): C79.9 - SECONDARY MALIGNANT NEOPLASM OF UNSPECIFIED SITE; C50.919 - MALIGNANT NEOPLASM OF UNSP SITE OF UNSPECIFIED FEMALE BREAST (4) Leukocytosis Code(s): D72.829 - ELEVATED WHITE BLOOD CELL COUNT, UNSPECIFIED Qualifiers: Leukocytosis type: unspecified Qualified Code(s): D72.829 - Elevated white blood cell count, unspecified (5) Renal dysfunction Assessment/Plan: s/p cystoscopy, ureteral stent Code(s): N28.9 - DISORDER OF KIDNEY AND URETER, UNSPECIFIED
[2019-10-01 14:03] LABS: ALBUMIN 2.6 g/dl (3.4-5.0); BILIRUBIN,TOTAL 0.6 mg/dL (0.2-1); BLOOD UREA NITROGEN 71.2 mg/dL (7-18); CALCIUM 9.7 mg/dL (8.5-10.1); CREATININE 2.3 mg/dL (0.55-1.3); MAGNESIUM 1.6 mg/dL (1.8-2.4); PHOSPHOROUS 5.1 mg/dL (2.5-4.9); POTASSIUM 4.4 mmol/L (3.5-5.1); TOT PROT 6.3 g/dl (6.4-8.2)
[2019-10-01] MEDS ORDERED: PT OWN MED DRAWER 7, Y5N ONE (14:45)
[2019-10-01] MEDS ORDERED: MAGNESIUM SULF 50% (8.12 MEQ/2 ML-1 GM VIAL) IVPB ONE (15:45)
--- NOTE | 2019-10-01 17:09 | PN ---
Progress Note, Physician History of Present Illness: Pt seen and examined at bedside. She is awake and alert. She denies shortness of breath. - Current Medication List Current Medications: Active Medications Acetaminophen (Tylenol -) 650 mg PO Q6H PRN PRN Reason: Fever Or Pain 1-3 Albuterol/Ipratropium (Duoneb -) 1 amp NEB RTID [facility] Last Admin: 10/01/19 13:15 Dose: Not Given Artificial Tears (Artificial Tears) 1 drop OU BID PRN PRN Reason: DRY EYES Calcitonin (Miacalcin [place] -) 1 spray NS DAILY [facility] Last Admin: 10/01/19 10:09 Dose: 1 spray Carvedilol (Coreg -) 3.125 mg PO BID [facility] Last Admin: 10/01/19 10:09 Dose: 3.125 mg Cephalexin HCl (Keflex -) 500 mg PO DAILY [facility] Last Admin: 10/01/19 10:09 Dose: 500 mg Cholecalciferol (Vitamin D3 -) 3,000 unit PO DAILY [facility] Last Admin: 10/01/19 10:09 Dose: 3,000 unit Fentanyl (Sublimaze Injection -) 25 mcg IVPUSH [id number] PRN PRN Reason: PAIN-PACU ORDER X 4 DOSES ONLY Sodium Chloride (1/2 Normal Saline) 1,000 mls @ 75 mls/hr IV ASDIR [facility] Last Admin: 10/01/19 13:01 Dose: Not Given Ondansetron HCl (Zofran -) 4 mg PO TID [facility] Last Admin: 10/01/19 14:48 Dose: 4 mg Ondansetron HCl (Zofran Injection) 4 mg IVPUSH Q6H PRN PRN Reason: NAUSEA AND/OR VOMITING - Objective Vital Signs: Vital Signs Temperature 98.2 F 10/01/19 14:56 Pulse Rate 79 10/01/19 14:56 Respiratory Rate 18 10/01/19 14:56 Blood Pressure 100/66 10/01/19 14:56 O2 Sat by Pulse Oximetry (%) 95 09/30/19 21:00 Constitutional: Yes: Calm Eyes: Yes: Conjunctiva Clear HENT: Yes: Atraumatic Neck: Yes: Supple Cardiovascular: Yes: S1, S2 Respiratory: Yes: CTA Bilaterally Genitourinary: Yes: Bahena Present, Other (left nephrostomy) Musculoskeletal: Yes: WNL Edema: No Neurological: Yes: Oriented Psychiatric: Yes: Oriented Labs: CBC, BMP 10/01/19 12:53 10/01/19 12:53 INR, PTT INR 1.01 (0.83-1.09) 09/13/19 14:40 Assessment/Plan Current Medications Generic Name Dose Route Start Last Admin Trade Name Freq PRN Reason Stop Dose Admin Acetaminophen 650 mg 09/23/19 13:24 Tylenol - PO Q6H PRN Fever Or Pain 1-3 Albuterol/Ipratropium 1 amp 09/23/19 14:00 10/01/19 13:15 Duoneb - NEB Not Given RTID [facility] Artificial Tears 1 drop 09/23/19 13:24 Artificial Tears OU BID PRN DRY EYES Calcitonin 1 spray 09/24/19 10:00 10/01/19 10:09 Miacalcin [place] - NS 1 spray DAILY [facility] Administration Carvedilol 3.125 mg 09/23/19 22:00 10/01/19 10:09 Coreg - PO 3.125 mg BID TR[facility] Administration Cephalexin HCl 500 mg 09/25/19 16:45 10/01/19 10:09 Keflex - PO 500 mg DAILY TR[facility] Administration Cholecalciferol 3,000 unit 09/24/19 10:00 10/01/19 10:09 Vitamin D3 - PO 3,000 unit DAILY TRICIA Administration Fentanyl 25 mcg 09/23/19 14:29 Sublimaze Injection - IVPUSH [id number] PRN PAIN-PACU ORDER X 4 DOSES ONLY Sodium Chloride 1,000 mls @ 75 mls/hr 09/24/19 13:00 10/01/19 13:01 1/2 Normal Saline IV Not Given ASDIR TRICIA Ondansetron HCl 4 mg 09/23/19 14:00 10/01/19 14:48 Zofran - PO 4 mg TID TRICIA Administration Ondansetron HCl 4 mg 09/23/19 14:29 Zofran Injection IVPUSH Q6H PRN NAUSEA AND/OR VOMITING Impression 1. CKD 2. leukopenia 3. obstructive uropathy with bilateral hydro 4. breast cancer with mets 5. HTN 6. hyperlipidemia 7. anemia 8. ALEKSANDER 9. CHF Plan - renal function is improving - cont to monitor - pt is making urine - urology follow up - avoid nsaids Dr Land
[2019-10-02] MEDS: ONDANSETRON 4 MG TABLET PO SCH ×3 (06:24→21:42)
[2019-10-02] MEDS: ALBUTEROL SO4 2.5/IPRATROPIUM 0.5 INH SOL 3 ML VIAL.NEB. NEB SCH ×3 (08:00→19:45)
[2019-10-02 08:10] LABS: HEMATOCRIT 26.1 % (32.4-45.2); HEMOGLOBIN 8.9 GM/dL (10.7-15.3); MCH 33.3 pg (25.7-33.7); MCHC 34.2 g/dl (32.0-36.0); MEAN CELL VOLUME 97.2 fl (80-96); MEAN PLT VOLUME 9.1 fl (7.5-11.1); PLATELET COUNT 207 K/MM3 (134-434); RBC 2.68 M/mm3 (3.60-5.2); RDW 16.4 % (11.6-15.6); WHITE BLOOD COUNT 7.2 K/mm3 (4.0-10.0)
[2019-10-02 08:44] LABS: ALBUMIN 2.6 g/dl (3.4-5.0); BILIRUBIN,TOTAL 0.3 mg/dL (0.2-1); BLOOD UREA NITROGEN 74.8 mg/dL (7-18); CALCIUM 10.1 mg/dL (8.5-10.1); CREATININE 2.2 mg/dL (0.55-1.3); MAGNESIUM 2.3 mg/dL (1.8-2.4); PHOSPHOROUS 4.9 mg/dL (2.5-4.9); POTASSIUM 4.2 mmol/L (3.5-5.1); TOT PROT 6.1 g/dl (6.4-8.2)
[2019-10-02] MEDS ORDERED: PT OWN MED DRAWER 7, Y5N ONE (09:29)
--- NOTE | 2019-10-02 09:29 | PN ---
Progress Note (short form) - Note Progress Note: Resting in NAD. Denies shortness of breath or chest pain. No acute events overnight. Intake & Output 09/29/19 09/30/19 10/01/19 10/02/19 23:59 23:59 23:59 23:59 Intake Total 550 1950 950 Output Total 2075 1225 3850 350 Balance -1525 725 -2900 -350 Last Vital Signs Temp Pulse Resp BP Pulse Ox 97.8 F 79 20 106/64 95 10/02/19 05:46 10/02/19 05:46 10/02/19 05:46 10/02/19 05:46 10/01/19 21:00 Active Medications Acetaminophen (Tylenol -) 650 mg PO Q6H PRN PRN Reason: Fever Or Pain 1-3 Albuterol/Ipratropium (Duoneb -) 1 amp NEB RTID [facility] Last Admin: 10/02/19 08:00 Dose: 1 amp Artificial Tears (Artificial Tears) 1 drop OU BID PRN PRN Reason: DRY EYES Calcitonin (Miacalcin [place] -) 1 spray NS DAILY [facility] Last Admin: 10/01/19 10:09 Dose: 1 spray Carvedilol (Coreg -) 3.125 mg PO BID [facility] Last Admin: 10/01/19 21:37 Dose: 3.125 mg Cephalexin HCl (Keflex -) 500 mg PO DAILY [facility] Last Admin: 10/01/19 10:09 Dose: 500 mg Cholecalciferol (Vitamin D3 -) 3,000 unit PO DAILY [facility] Last Admin: 10/01/19 10:09 Dose: 3,000 unit Fentanyl (Sublimaze Injection -) 25 mcg IVPUSH [id number] PRN PRN Reason: PAIN-PACU ORDER X 4 DOSES ONLY Sodium Chloride (1/2 Normal Saline) 1,000 mls @ 75 mls/hr IV ASDIR [facility] Last Admin: 10/01/19 13:01 Dose: Not Given Ondansetron HCl (Zofran -) 4 mg PO TID [facility] Last Admin: 10/02/19 06:24 Dose: 4 mg Ondansetron HCl (Zofran Injection) 4 mg IVPUSH Q6H PRN PRN Reason: NAUSEA AND/OR VOMITING Gen: NAD at rest Heart: RRR Lung: decreased breath sounds at the bases Abd: soft, nontender, Intact ostomy Ext: no edema Laboratory Results - last 24 hr 10/01/19 10/01/19 10/02/19 12:53 12:53 07:38 WBC 7.5 7.2 RBC 2.70 L 2.68 L Hgb 9.1 L 8.9 L Hct 26.6 L 26.1 L MCV 98.5 H 97.2 H MCH 33.8 H 33.3 MCHC 34.3 34.2 RDW 16.3 H 16.4 H Plt Count 202 207 MPV 9.3 9.1 Sodium 137 Potassium 4.4 Chloride 104 Carbon Dioxide 23 Anion Gap 9 BUN 71.2 H Creatinine 2.3 H Est GFR (CKD-EPI)AfAm 23.64 Est GFR (CKD-EPI)NonAf 20.40 Random Glucose 129 H Calcium 9.7 Phosphorus 5.1 H Magnesium 1.6 L Total Bilirubin 0.6 AST 57 H ALT 17 Alkaline Phosphatase 174 H Total Protein 6.3 L Albumin 2.6 L 10/02/19 07:38 WBC RBC Hgb Hct MCV MCH MCHC RDW Plt Count MPV Sodium 139 Potassium 4.2 Chloride 106 Carbon Dioxide 24 Anion Gap 8 BUN 74.8 H Creatinine 2.2 H Est GFR (CKD-EPI)AfAm 24.95 Est GFR (CKD-EPI)NonAf 21.53 Random Glucose 110 H Calcium 10.1 Phosphorus 4.9 Magnesium 2.3 Total Bilirubin 0.3 AST 51 H ALT 16 Alkaline Phosphatase 207 H Total Protein 6.1 L Albumin 2.6 L A/P Acute on Chronic Diastolic Heart Failure Acute on Chronic Renal Faiulre Bilateral Hydronephrosis Cellulitis Sepsis Metastatic Breast Ca HTN Hyperlipidemia Anemia - BD TX PRN - holding lasix - monitor urine output, creatinine - O2 as needed - inhaled bronchodilators - DVT prophylaxis Dr Brooke
[2019-10-02] MEDS: CALCITONIN - SALMON SYNTHETIC 200 UNITS/SPRAY NS SCH (09:33)
[2019-10-02] MEDS: CHOLECALCIFEROL (VIT D3) 1,000 UNIT (25 MCG) TABLET PO SCH (09:33)
[2019-10-02] MEDS: CEPHALEXIN MONOHYDRATE 500 MG CAPSULE (UD) PO SCH (09:34)
[2019-10-02] MEDS: CARVEDILOL 3.125 MG TABLET (FP) PO SCH ×2 (09:34→21:42)
--- NOTE | 2019-10-02 12:03 | PN ---
Physical Exam: SUBJECTIVE: Patient seen and examined. Pt reports mild suprapubic pain but no other c/o or issues. No overnight events. Denies f/c/n/v/d/sob. OBJECTIVE: Vital Signs Period Temp Pulse Resp BP Sys/Avila Pulse Ox Last 24 Hr 97.8 F-98.7 F 67-79 18-20 100-108/64-68 95 GENERAL: The patient is awake, alert. Pt is much improved today. EYES: PERRL, extraocular movements intact, sclera anicteric, conjunctiva clear. ENT: oropharynx clear without exudates, moist mucous membranes. NECK: Trachea midline, full range of motion, supple. LUNGS: Breath sounds equal, clear to auscultation bilaterally, no wheezes, no crackles, HEART: Regular rate and rhythm, S1, S2 without murmur, rub or gallop. ABDOMEN: Soft, nontender, nondistended, normoactive bowel sounds, no guarding, Colostomy bag on the right- draining semi-solid stool. Left nephrostomy tube in place- draining normal colored urine. Bahena placed back- draining urine- urine improving EXTREMITIES: 2+ pulses, warm, well-perfused, no edema. RUE erythema improved, swelling improved NEUROLOGICAL: Cranial nerves II through XII grossly intact. Normal speech PSYCH: Normal mood, normal affect. Laboratory Results - last 24 hr 10/01/19 10/01/19 10/02/19 12:53 12:53 07:38 WBC 7.5 7.2 RBC 2.70 L 2.68 L Hgb 9.1 L 8.9 L Hct 26.6 L 26.1 L MCV 98.5 H 97.2 H MCH 33.8 H 33.3 MCHC 34.3 34.2 RDW 16.3 H 16.4 H Plt Count 202 207 MPV 9.3 9.1 Sodium 137 Potassium 4.4 Chloride 104 Carbon Dioxide 23 Anion Gap 9 BUN 71.2 H Creatinine 2.3 H Est GFR (CKD-EPI)AfAm 23.64 Est GFR (CKD-EPI)NonAf 20.40 Random Glucose 129 H Calcium 9.7 Phosphorus 5.1 H Magnesium 1.6 L Total Bilirubin 0.6 AST 57 H ALT 17 Alkaline Phosphatase 174 H Total Protein 6.3 L Albumin 2.6 L 10/02/19 07:38 WBC RBC Hgb Hct MCV MCH MCHC RDW Plt Count MPV Sodium 139 Potassium 4.2 Chloride 106 Carbon Dioxide 24 Anion Gap 8 BUN 74.8 H Creatinine 2.2 H Est GFR (CKD-EPI)AfAm 24.95 Est GFR (CKD-EPI)NonAf 21.53 Random Glucose 110 H Calcium 10.1 Phosphorus 4.9 Magnesium 2.3 Total Bilirubin 0.3 AST 51 H ALT 16 Alkaline Phosphatase 207 H Total Protein 6.1 L Albumin 2.6 L Active Medications Generic Name Dose Route Start Last Admin Trade Name Freq PRN Reason Stop Dose Admin Acetaminophen 650 mg 09/23/19 13:24 Tylenol - PO Q6H PRN Fever Or Pain 1-3 Albuterol/Ipratropium 1 amp 09/23/19 14:00 10/02/19 08:00 Duoneb - NEB 1 amp RTID [facility] Administration Artificial Tears 1 drop 09/23/19 13:24 Artificial Tears OU BID PRN DRY EYES Calcitonin 1 spray 09/24/19 10:00 10/02/19 09:33 Miacalcin [place] - NS 1 spray DAILY [facility] Administration Carvedilol 3.125 mg 09/23/19 22:00 10/02/19 09:34 Coreg - PO 3.125 mg BID [facility] Administration Cephalexin HCl 500 mg 09/25/19 16:45 10/02/19 09:34 Keflex - PO 500 mg DAILY [facility] Administration Cholecalciferol 3,000 unit 09/24/19 10:00 10/02/19 09:33 Vitamin D3 - PO 3,000 unit DAILY [facility] Administration Fentanyl 25 mcg 09/23/19 14:29 Sublimaze Injection - IVPUSH [id number] PRN PAIN-PACU ORDER X 4 DOSES ONLY Sodium Chloride 1,000 mls @ 75 mls/hr 09/24/19 13:00 10/01/19 13:01 1/2 Normal Saline IV Not Given ASDIR [facility] Ondansetron HCl 4 mg 09/23/19 14:00 10/02/19 06:24 Zofran - PO 4 mg TID [facility] Administration Ondansetron HCl 4 mg 09/23/19 14:29 Zofran Injection IVPUSH Q6H PRN NAUSEA AND/OR VOMITING ASSESSMENT/PLAN: 73 y/o F, pmh of Breast cancer stage 3A w/ mets to the spine, peritoneal cavity , colon, spine, s/p right mastectomy, s/p radiation, b/l ureteral stents w/ b/l hydro, mild b/l pleural effusion, presents c/o of weakness of 1-2 weeks duration and abdominal cramping of 1 day duration #ALEKSANDER, elevated Cre b/l hydronephrosis s/p ureteral stents Dr. Flores discussed comfort care with pt, she understood and would like comfort care/ DNR/DNI. Will discuss with SW if pt can go to [place] Waiting to speak to daughter today #Elevated ALP likely 2/2 to metastatic process of bones vs biliary disease GGt elevated 121, ALP elevated 211 US abd ordered- cholelithiasis, midld diffuse GB wall thickening- chronic in nature. CBD .9 cm as seen on prior CT #New Systolic CHF carvedolol 3.125 BID Progressive renal dysfunction precludes use of Entresto, ACEI, ARB, or spironolactone at this time. Consider hydralazine + nitrate after pt's renal function as stabilized #Macrocytic Anemia ? sec to CTx vs chronic disease vs marrow infiltration by tumor process. Hb improved Ferrous sulfate #Right forearm Cellulitis keflex- d/c abx in 2-3 days once pt's symptoms have fully improved #Right pelvic mass US bladder- cystic mass like density right hemipelvis- irregular mass like density if its anterior wall. #Abdominal cramping/Generalized spasm likely 2/2 to dehydration 2/2 Failure to thrive vs Navelbine adverse effect now resolved Flexeril prn Diet regular IVF 1/2 NS #Decreased mood Will certified genetic counselor and consider antidepressants if needed #DVTppx hep sq TID FEN monitor lytes Regular diet 1/2 NS at 75 Dispo: cont Abx, f/u heme/onc for official plan, f/u with SW about SNF, speak to daughter Visit type - Emergency Visit Emergency Visit: Yes ED Registration Date: 09/17/19 Care time: The patient presented to the Emergency Department on the above date and was hospitalized for further evaluation of their emergent condition. - New Patient This patient is new to me today: Yes Date on this admission: 10/02/19 - Critical Care Critical Care patient: No - Discharge Referral Referred to [facility] Med [facility] No ATTENDING PHYSICIAN STATEMENT I saw and evaluated the patient. I reviewed the resident's note and discussed the case with the resident. I agree with the resident's findings and plan as documented. SUBJECTIVE: OBJECTIVE: ASSESSMENT AND PLAN:
[2019-10-02] MEDS ORDERED: traMADol HCL 50 MG TABLET PO PRN (12:29)
--- NOTE | 2019-10-02 12:30 | PN ---
Teaching Attending Note Name of Resident: Toñito Quintana ATTENDING PHYSICIAN STATEMENT I saw and evaluated the patient. I reviewed the resident's note and discussed the case with the resident. I agree with the resident's findings and plan as documented. Seen and examined; please see resident note for further historical information. I personally verified all limon historical information and exam findings. Personally interpreted all imaging and diagnostics and reviewed appropriate consults. I reviewed all labs and vital signs as per resident note and EMR as documented. I agree with the above assessment and plan unless supplemented by myself in the following. Seen today, is in good spirits, she is wanting to complete a full most form but would like to discuss it with her daughter being present this afternoon. She does not know if she would like to go with full hospice and would like to have additional discussion with this. She is deciding where she would like to be discharged to which will likely be a intermediate facility versus [place]. We are discussing this with hematology oncology service. 10 item review of systems completed and is negative aside from as discussed in the subjective data in my own/the resident documentation. VS, labs, imaging reviewed NAD, AAO, resting comfortably in bed. RRR s1/2 no mgr Normal muscle tone, moves all 5 extremities with normal apparent strength Neck is supple, trachea midline, no errol LN Lungs CTAB with sym expansion NT ND +BS no errol organomegaly CN2-12 wnl; no FND NC AT EOMI PERRLA Normal mood, appropriate behavior, euthymic affect No skin breakdown or rashes noted Assessment and plan: Patient presents to the hospital with deconditioning, full body shakes, found to have worsening renal failure, sepsis cellulitis/colitis related, and severe hydronephrosis. She is status post nephrostomy and stent adjustment with urology and has good urine output. Per oncology service would not benefit from a curative approach and due to the progression of her disease and her associated symptoms she is determined that she would be best suited to go DNR/ DNI and focus on the quality of life as opposed to the quantity of time left. Therefore she will be discharged when appropriate and cleared, the most form will be completed regarding full hospice care versus just DNR/DNI, and we will continue to update the patient and the family, anticipate discharge within 24 to 36 hours. Problems include: -Worsening renal failure, status post stenting with worsening hydronephrosis. -Sepsis secondary to cellulitis, colitis-Resolved. Transitioned to PO abx per ID. -Metastatic breast cancer -Compression fracture of the lumbar spine, L4. UE pain neuropathic; considered EMG -Lumbar spinal stenosis, pending neurosurgical evaluation -Ongoing anemia of chronic disease, transfusion threshold for hemoglobin of 8 -Severe hydronephrosis status post stenting, s/p nephrostomy -Bilateral pleural effusions, right greater than left. Follow-up with interventional radiology consult to see if thoracentesis would be indicated. BNP is elevated which is secondary to either primary process but likely is shrouded by the renal retention. -Multiple lytic lesions, MRI of the lumbar spine noted. C-spine has been completed. Imaging of the femurs is noted as well. -Leukopenia, secondary to global oncologic processes -History of hypertension -History of hyperlipidemia -Severe hypoalbuminemia secondary to cancer, protein calorie malnutrition. -Hyperphosphatemia secondary to renal failure, nephrology following. Continuing to monitor -Transaminitis with elevated alkaline phosphatase, up to 151 from 141 with AST persistently elevated. Trend CMP -Leukocytosis secondary to acute sepsis, improved, continue to monitor. -Chronic lymphedema of the left arm secondary to breast cancer in the surrounding issues, complicates the cellulitis -Overweight, BMI 25
--- NOTE | 2019-10-02 16:01 | PN ---
Progress Note, Physician History of Present Illness: Pt seen and examined at bedside. She is awake and alert. She denies shortness of breath. - Current Medication List Current Medications: Active Medications Acetaminophen (Tylenol -) 650 mg PO Q6H PRN PRN Reason: Fever Or Pain 1-3 Albuterol/Ipratropium (Duoneb -) 1 amp NEB RTID REPLACED BY [facility] Last Admin: 10/02/19 08:00 Dose: 1 amp Artificial Tears (Artificial Tears) 1 drop OU BID PRN PRN Reason: DRY EYES Calcitonin (Miacalcin [place] -) 1 spray NS DAILY REPLACED BY [facility] Last Admin: 10/02/19 09:33 Dose: 1 spray Carvedilol (Coreg -) 3.125 mg PO BID REPLACED BY [facility] Last Admin: 10/02/19 09:34 Dose: 3.125 mg Cephalexin HCl (Keflex -) 500 mg PO DAILY REPLACED BY [facility] Last Admin: 10/02/19 09:34 Dose: 500 mg Cholecalciferol (Vitamin D3 -) 3,000 unit PO DAILY REPLACED BY [facility] Last Admin: 10/02/19 09:33 Dose: 3,000 unit Fentanyl (Sublimaze Injection -) 25 mcg IVPUSH [id number] PRN PRN Reason: PAIN-PACU ORDER X 4 DOSES ONLY Sodium Chloride (1/2 Normal Saline) 1,000 mls @ 75 mls/hr IV ASDIR REPLACED BY [facility] Last Admin: 10/01/19 13:01 Dose: Not Given Ondansetron HCl (Zofran -) 4 mg PO TID REPLACED BY [facility] Last Admin: 10/02/19 06:24 Dose: 4 mg Ondansetron HCl (Zofran Injection) 4 mg IVPUSH Q6H PRN PRN Reason: NAUSEA AND/OR VOMITING Tramadol HCl (Ultram -) 50 mg PO Q6H PRN PRN Reason: PAIN LEVEL 6-10 - Objective Vital Signs: Vital Signs Temperature 98.8 F 10/02/19 14:01 Pulse Rate 87 10/02/19 14:01 Respiratory Rate 20 10/02/19 14:01 Blood Pressure 108/61 10/02/19 14:01 O2 Sat by Pulse Oximetry (%) 95 10/01/19 21:00 Constitutional: Yes: Calm Eyes: Yes: Conjunctiva Clear HENT: Yes: Atraumatic Neck: Yes: Supple Cardiovascular: Yes: S1, S2 Respiratory: Yes: CTA Bilaterally Gastrointestinal: Yes: Soft Genitourinary: Yes: Bahena Present, Other (left nephrostomy) Musculoskeletal: Yes: WNL Edema: No Neurological: Yes: Oriented Psychiatric: Yes: Oriented Labs: CBC, BMP 10/02/19 07:38 10/02/19 07:38 INR, PTT INR 1.01 (0.83-1.09) 09/13/19 14:40 Assessment/Plan Current Medications Generic Name Dose Route Start Last Admin Trade Name Freq PRN Reason Stop Dose Admin Acetaminophen 650 mg 09/23/19 13:24 Tylenol - PO Q6H PRN Fever Or Pain 1-3 Albuterol/Ipratropium 1 amp 09/23/19 14:00 10/02/19 08:00 Duoneb - NEB 1 amp RTID TRICIA Administration Artificial Tears 1 drop 09/23/19 13:24 Artificial Tears OU BID PRN DRY EYES Calcitonin 1 spray 09/24/19 10:00 10/02/19 09:33 Miacalcin [place] - NS 1 spray DAILY TRICIA Administration Carvedilol 3.125 mg 09/23/19 22:00 10/02/19 09:34 Coreg - PO 3.125 mg BID TRICIA Administration Cephalexin HCl 500 mg 09/25/19 16:45 10/02/19 09:34 Keflex - PO 500 mg DAILY TRICIA Administration Cholecalciferol 3,000 unit 09/24/19 10:00 10/02/19 09:33 Vitamin D3 - PO 3,000 unit DAILY TRICIA Administration Fentanyl 25 mcg 09/23/19 14:29 Sublimaze Injection - IVPUSH [id number] PRN PAIN-PACU ORDER X 4 DOSES ONLY Sodium Chloride 1,000 mls @ 75 mls/hr 09/24/19 13:00 10/01/19 13:01 1/2 Normal Saline IV Not Given ASDIR TRICIA Ondansetron HCl 4 mg 09/23/19 14:00 10/02/19 06:24 Zofran - PO 4 mg TID TRICIA Administration Ondansetron HCl 4 mg 09/23/19 14:29 Zofran Injection IVPUSH Q6H PRN NAUSEA AND/OR VOMITING Tramadol HCl 50 mg 10/02/19 12:29 Ultram - PO Q6H PRN PAIN LEVEL 6-10 Impression 1. CKD 2. leukopenia 3. obstructive uropathy with bilateral hydro 4. breast cancer with mets 5. HTN 6. hyperlipidemia 7. anemia 8. ALEKSANDER 9. CHF Plan - renal function continues to improve - repeat labs in am - pt is making urine - urology follow up - avoid nsaids Dr Land
[2019-10-02] MEDS: SODIUM CHLORIDE 0.45% 1,000 ML IV SCH (21:43)
[2019-10-03] MEDS: ONDANSETRON 4 MG TABLET PO SCH ×3 (06:15→21:46)
--- NOTE | 2019-10-03 07:22 | PN ---
Physical Exam: SUBJECTIVE: Patient seen and examined. Pt has no other c/o or issues. No overnight events. Denies f/c/n/v/d/sob OBJECTIVE: Vital Signs Period Temp Pulse Resp BP Sys/[place]ila Pulse Ox Last 24 Hr 98.1 F-98.8 F 87-88 20-20 108-128/61-71 95-97 GENERAL: The patient is awake, alert. Pt is much improved today. EYES: PERRL, extraocular movements intact, sclera anicteric, conjunctiva clear. ENT: oropharynx clear without exudates, moist mucous membranes. NECK: Trachea midline, full range of motion, supple. LUNGS: Breath sounds equal, clear to auscultation bilaterally, no wheezes, no crackles, HEART: Regular rate and rhythm, S1, S2 without murmur, rub or gallop. ABDOMEN: Soft, nontender, nondistended, normoactive bowel sounds, no guarding, Colostomy bag on the right- draining semi-solid stool. Left nephrostomy tube in place- draining normal colored urine. Bahena placed back- draining urine- urine improving EXTREMITIES: 2+ pulses, warm, well-perfused, no edema. RUE erythema improved, swelling improved NEUROLOGICAL: Cranial nerves II through XII grossly intact. Normal speech PSYCH: Normal mood, normal affect. Laboratory Results - last 24 hr 10/02/19 10/02/19 07:38 07:38 WBC 7.2 RBC 2.68 L Hgb 8.9 L Hct 26.1 L MCV 97.2 H MCH 33.3 MCHC 34.2 RDW 16.4 H Plt Count 207 MPV 9.1 Sodium 139 Potassium 4.2 Chloride 106 Carbon Dioxide 24 Anion Gap 8 BUN 74.8 H Creatinine 2.2 H Est GFR (CKD-EPI)AfAm 24.95 Est GFR (CKD-EPI)NonAf 21.53 Random Glucose 110 H Calcium 10.1 Phosphorus 4.9 Magnesium 2.3 Total Bilirubin 0.3 AST 51 H ALT 16 Alkaline Phosphatase 207 H Total Protein 6.1 L Albumin 2.6 L Active Medications Generic Name Dose Route Start Last Admin Trade Name Freq PRN Reason Stop Dose Admin Acetaminophen 650 mg 09/23/19 13:24 Tylenol - PO Q6H PRN Fever Or Pain 1-3 Albuterol/Ipratropium 1 amp 09/23/19 14:00 10/02/19 19:45 Duoneb - NEB 1 amp RTID TRICIA Administration Artificial Tears 1 drop 09/23/19 13:24 Artificial Tears OU BID PRN DRY EYES Calcitonin 1 spray 09/24/19 10:00 10/02/19 09:33 Miacalcin [place] - NS 1 spray DAILY TRICIA Administration Carvedilol 3.125 mg 09/23/19 22:00 10/02/19 21:42 Coreg - PO 3.125 mg BID TRICIA Administration Cephalexin HCl 500 mg 09/25/19 16:45 10/02/19 09:34 Keflex - PO 500 mg DAILY TRICIA Administration Cholecalciferol 3,000 unit 09/24/19 10:00 10/02/19 09:33 Vitamin D3 - PO 3,000 unit DAILY TRICIA Administration Fentanyl 25 mcg 09/23/19 14:29 Sublimaze Injection - IVPUSH [id number] PRN PAIN-PACU ORDER X 4 DOSES ONLY Sodium Chloride 1,000 mls @ 75 mls/hr 09/24/19 13:00 10/02/19 21:43 1/2 Normal Saline IV Not Given ASDIR TRICIA Ondansetron HCl 4 mg 09/23/19 14:00 10/03/19 06:15 Zofran - PO 4 mg TID TRICIA Administration Ondansetron HCl 4 mg 09/23/19 14:29 Zofran Injection IVPUSH Q6H PRN NAUSEA AND/OR VOMITING Tramadol HCl 50 mg 10/02/19 12:29 Ultram - PO Q6H PRN PAIN LEVEL 6-10 ASSESSMENT/PLAN: 73 y/o F, pmh of Breast cancer stage 3A w/ mets to the spine, peritoneal cavity , colon, spine, s/p right mastectomy, s/p radiation, b/l ureteral stents w/ b/l hydro, mild b/l pleural effusion, presents c/o of weakness of 1-2 weeks duration and abdominal cramping of 1 day duration #ALEKSANDER, elevated Cre b/l hydronephrosis s/p ureteral stents Dr. Flores discussed comfort care with pt, she understood and would like comfort care/ DNR/DNI. Will discuss with if pt can go to [facility] Waiting to speak to daughter today #Elevated ALP likely 2/2 to metastatic process of bones vs biliary disease GGt elevated 121, ALP elevated 211 #New Systolic CHF carvedolol 3.125 BID Progressive renal dysfunction precludes use of Entresto, ACEI, ARB, or spironolactone at this time. Consider hydralazine + nitrate after pt's renal function as stabilized #Macrocytic Anemia ? sec to CTx vs chronic disease vs marrow infiltration by tumor process. Hb improved Ferrous sulfate #Right forearm Cellulitis keflex- d/c abx in 2-3 days once pt's symptoms have fully improved #Right pelvic mass US bladder- cystic mass like density right hemipelvis- irregular mass like density if its anterior wall. #Abdominal cramping/Generalized spasm likely 2/2 to dehydration 2/2 Failure to thrive vs Navelbine adverse effect now resolved Flexeril prn Diet regular IVF 1/2 NS #Decreased mood Will deputy county counsel and consider antidepressants if needed #DVTppx hep sq TID FEN monitor lytes Regular diet 1/2 NS at 75 Dispo: cont Abx, f/u heme/onc for official plan, f/u with SW about SNF, speak to daughter Visit type - Emergency Visit Emergency Visit: Yes ED Registration Date: 09/17/19 Care time: The patient presented to the Emergency Department on the above date and was hospitalized for further evaluation of their emergent condition. - New Patient This patient is new to me today: Yes Date on this admission: 10/05/19 - Critical Care Critical Care patient: No - Discharge Referral Referred to [facility] Med P.C.: No ATTENDING PHYSICIAN STATEMENT I saw and evaluated the patient. I reviewed the resident's note and discussed the case with the resident. I agree with the resident's findings and plan as documented. SUBJECTIVE: OBJECTIVE: ASSESSMENT AND PLAN:
[2019-10-03] MEDS: ALBUTEROL SO4 2.5/IPRATROPIUM 0.5 INH SOL 3 ML VIAL.NEB. NEB SCH ×3 (07:30→20:25)
--- NOTE | 2019-10-03 08:17 | PN ---
Teaching Attending Note Name of Resident: Toñito Quintana ATTENDING PHYSICIAN STATEMENT I saw and evaluated the patient. I reviewed the resident's note and discussed the case with the resident. I agree with the resident's findings and plan as documented. Seen and examined; please see resident note for further historical information. I personally verified all limon historical information and exam findings. Personally interpreted all imaging and diagnostics and reviewed appropriate consults. I reviewed all labs and vital signs as per resident note and EMR as documented. I agree with the above assessment and plan unless supplemented by myself in the following. Restarting the lyrica; reviewed chart. Appears that this was simply not renewed by resident and that there being a compelling reason may have been an inacurate statement communicated to me. This will be addressed with the resident team at length as she continues to have pain secondary to her malignancy. Calcitonin nasal spray is ordered alongside tramadol and lyrica which was sufficient. Pending placement. 10 item review of systems completed and is negative aside from as discussed in the subjective data in my own/the resident documentation. VS, labs, imaging reviewed NAD, AAO, resting comfortably in bed. RRR s1/2 no mgr Normal muscle tone, moves all 5 extremities with normal apparent strength Neck is supple, trachea midline, no errol LN Lungs CTAB with sym expansion NT ND +BS no errol organomegaly CN2-12 wnl; no FND NC AT EOMI PERRLA Normal mood, appropriate behavior, euthymic affect No skin breakdown or rashes noted Assessment and plan: Patient presents to the hospital with deconditioning, full body shakes, found to have worsening renal failure, sepsis cellulitis/colitis related, and severe hydronephrosis. She is status post nephrostomy and stent adjustment with urology and has good urine output. Per oncology service would not benefit from a curative approach and due to the progression of her disease and her associated symptoms she is determined that she would be best suited to go DNR/ DNI and focus on the quality of life as opposed to the quantity of time left. Therefore she will be discharged when appropriate and cleared, the most form will be completed regarding full hospice care versus just DNR/DNI, and we will continue to update the patient and the family, anticipate discharge within 24 to 36 hours. Problems include: -Worsening renal failure, status post stenting with worsening hydronephrosis. -Sepsis secondary to cellulitis, colitis-Resolved. Transitioned to PO abx per ID. -Metastatic breast cancer -Compression fracture of the lumbar spine, L4. UE pain neuropathic; considered EMG -Lumbar spinal stenosis, pending neurosurgical evaluation -Ongoing anemia of chronic disease, transfusion threshold for hemoglobin of 8 -Severe hydronephrosis status post stenting, s/p nephrostomy -Bilateral pleural effusions, right greater than left. Follow-up with interventional radiology consult to see if thoracentesis would be indicated. BNP is elevated which is secondary to either primary process but likely is shrouded by the renal retention. -Multiple lytic lesions, MRI of the lumbar spine noted. C-spine has been completed. Imaging of the femurs is noted as well. -Leukopenia, secondary to global oncologic processes -History of hypertension -History of hyperlipidemia -Severe hypoalbuminemia secondary to cancer, protein calorie malnutrition. -Hyperphosphatemia secondary to renal failure, nephrology following. Continuing to monitor -Transaminitis with elevated alkaline phosphatase, up to 151 from 141 with AST persistently elevated. Trend CMP -Leukocytosis secondary to acute sepsis, improved, continue to monitor. -Chronic lymphedema of the left arm secondary to breast cancer in the surrounding issues, complicates the cellulitis -Overweight, BMI 25Lungs CTAB with sym expansion NT ND +BS no errol organomegaly CN2-12 wnl; no FND NC AT EOMI PERRLA Normal mood, appropriate behavior, euthymic affect No skin breakdown or rashes noted Assessment and plan:
[2019-10-03 09:12] LABS: HEMATOCRIT 26.9 % (32.4-45.2); HEMOGLOBIN 9.3 GM/dL (10.7-15.3); MCH 33.8 pg (25.7-33.7); MCHC 34.4 g/dl (32.0-36.0); MEAN CELL VOLUME 98.1 fl (80-96); PLATELET COUNT 221 K/MM3 (134-434); RBC 2.74 M/mm3 (3.60-5.2); RDW 16.3 % (11.6-15.6); WHITE BLOOD COUNT 6.1 K/mm3 (4.0-10.0)
[2019-10-03] MEDS: CHOLECALCIFEROL (VIT D3) 1,000 UNIT (25 MCG) TABLET PO SCH (09:18)
[2019-10-03] MEDS: CARVEDILOL 3.125 MG TABLET (FP) PO SCH ×2 (09:18→21:19)
[2019-10-03] MEDS: CALCITONIN - SALMON SYNTHETIC 200 UNITS/SPRAY NS SCH (09:19)
[2019-10-03 09:54] LABS: ALBUMIN 2.4 g/dl (3.4-5.0); BILIRUBIN,TOTAL 0.4 mg/dL (0.2-1); CALCIUM 9.6 mg/dL (8.5-10.1); CREATININE 2.1 mg/dL (0.55-1.3); MAGNESIUM 1.7 mg/dL (1.8-2.4); PHOSPHOROUS 4.8 mg/dL (2.5-4.9); POTASSIUM 4.3 mmol/L (3.5-5.1)
[2019-10-03] MEDS: SODIUM CHLORIDE 0.45% 1,000 ML IV SCH (12:59)
--- NOTE | 2019-10-03 19:25 | PN ---
Progress Note, Physician History of Present Illness: Pt seen and examined at bedside. She is awake and alert. She denies fevers or chills. - Current Medication List Current Medications: Active Medications Acetaminophen (Tylenol -) 650 mg PO Q6H PRN PRN Reason: Fever Or Pain 1-3 Albuterol/Ipratropium (Duoneb -) 1 amp NEB RTID [facility] Last Admin: 10/03/19 13:49 Dose: 1 amp Artificial Tears (Artificial Tears) 1 drop OU BID PRN PRN Reason: DRY EYES Calcitonin (Miacalcin [place] -) 1 spray NS DAILY [facility] Last Admin: 10/03/19 09:19 Dose: 1 spray Carvedilol (Coreg -) 3.125 mg PO BID [facility] Last Admin: 10/03/19 09:18 Dose: 3.125 mg Cholecalciferol (Vitamin D3 -) 3,000 unit PO DAILY [facility] Last Admin: 10/03/19 09:18 Dose: 3,000 unit Fentanyl (Sublimaze Injection -) 25 mcg IVPUSH [id number] PRN PRN Reason: PAIN-PACU ORDER X 4 DOSES ONLY Sodium Chloride (1/2 Normal Saline) 1,000 mls @ 75 mls/hr IV ASDIR [facility] Last Admin: 10/03/19 12:59 Dose: Not Given Ondansetron HCl (Zofran -) 4 mg PO TID [facility] Last Admin: 10/03/19 13:19 Dose: 4 mg Ondansetron HCl (Zofran Injection) 4 mg IVPUSH Q6H PRN PRN Reason: NAUSEA AND/OR VOMITING Tramadol HCl (Ultram -) 50 mg PO Q6H PRN PRN Reason: PAIN LEVEL 6-10 Last Admin: 10/03/19 09:18 Dose: 50 mg - Objective Vital Signs: Vital Signs Temperature 98.5 F 10/03/19 14:53 Pulse Rate 84 10/03/19 14:53 Respiratory Rate 18 10/03/19 14:53 Blood Pressure 113/59 L 10/03/19 14:53 O2 Sat by Pulse Oximetry (%) 95 10/03/19 10:00 Constitutional: Yes: Calm Eyes: Yes: Conjunctiva Clear HENT: Yes: Atraumatic Cardiovascular: Yes: S1, S2 Respiratory: Yes: CTA Bilaterally Gastrointestinal: Yes: Soft Genitourinary: Yes: Bahena Present, Other (left nephrostomy) Musculoskeletal: Yes: WNL Edema: No Neurological: Yes: Oriented Psychiatric: Yes: Oriented Labs: CBC, BMP 10/03/19 07:45 10/03/19 07:45 INR, PTT INR 1.01 (0.83-1.09) 09/13/19 14:40 Problem List - Problems (1) Renal dysfunction Code(s): N28.9 - DISORDER OF KIDNEY AND URETER, UNSPECIFIED (2) Hydronephrosis Code(s): N13.30 - UNSPECIFIED HYDRONEPHROSIS Qualifiers: Hydronephrosis type: unspecified Qualified Code(s): N13.30 - Unspecified hydronephrosis Assessment/Plan Current Medications Generic Name Dose Route Start Last Admin Trade Name Freq PRN Reason Stop Dose Admin Acetaminophen 650 mg 09/23/19 13:24 Tylenol - PO Q6H PRN Fever Or Pain 1-3 Albuterol/Ipratropium 1 amp 09/23/19 14:00 10/03/19 13:49 Duoneb - NEB 1 amp RTID TRICIA Administration Artificial Tears 1 drop 09/23/19 13:24 Artificial Tears OU BID PRN DRY EYES Calcitonin 1 spray 09/24/19 10:00 10/03/19 09:19 Miacalcin [place] - NS 1 spray DAILY TR[facility]IA Administration Carvedilol 3.125 mg 09/23/19 22:00 10/03/19 09:18 Coreg - PO 3.125 mg BID TR[facility]IA Administration Cholecalciferol 3,000 unit 09/24/19 10:00 10/03/19 09:18 Vitamin D3 - PO 3,000 unit DAILY [facility] Administration Fentanyl 25 mcg 09/23/19 14:29 Sublimaze Injection - IVPUSH [id number] PRN PAIN-PACU ORDER X 4 DOSES ONLY Sodium Chloride 1,000 mls @ 75 mls/hr 09/24/19 13:00 10/03/19 12:59 1/2 Normal Saline IV Not Given ASDIR [facility] Ondansetron HCl 4 mg 09/23/19 14:00 10/03/19 13:19 Zofran - PO 4 mg TID TRICIA Administration Ondansetron HCl 4 mg 09/23/19 14:29 Zofran Injection IVPUSH Q6H PRN NAUSEA AND/OR VOMITING Tramadol HCl 50 mg 10/02/19 12:29 10/03/19 09:18 Ultram - PO 50 mg Q6H PRN Administration PAIN LEVEL 6-10 Impression 1. CKD 2. leukopenia 3. obstructive uropathy with bilateral hydro 4. breast cancer with mets 5. HTN 6. hyperlipidemia 7. anemia 8. ALEKSANDER 9. CHF Plan - repeat labs in am - fisher trap is improving - pt is making urine - urology follow up - avoid nsaids Dr Land
[2019-10-03] MEDS: ONDANSETRON 4 MG/2 ML VIAL IVPUSH PRN (20:20)
--- NOTE | 2019-10-03 22:02 | PN ---
Progress Note (short form) - Note Progress Note: PAtient seen and examined Fatifgued AFVSS Cor: RSR, No murmurs, No gallops Lungs: Clear to P&A Abd: Soft, Normal bowel sounds, colostomy+ Ext:No significant edema LAbs/MEds reviewed A/P Metastatic breast ca S/P nephrostomy and stnt chnage on right and removal on left CKD ALEKSANDER anemia For rehab placement
[2019-10-04] MEDS: ONDANSETRON 4 MG TABLET PO SCH ×2 (06:15→14:16)
[2019-10-04] MEDS ORDERED: INSULIN (LEVEMIR) 100 UNITS/ML UNITS SQ ONE (06:38)
[2019-10-04] MEDS ORDERED: PT OWN MED DRAWER 7, Y5N ONE ×2 (06:39→20:26)
[2019-10-04] MEDS: ALBUTEROL SO4 2.5/IPRATROPIUM 0.5 INH SOL 3 ML VIAL.NEB. NEB SCH ×3 (07:30→19:55)
[2019-10-04] MEDS: ONDANSETRON 4 MG/2 ML VIAL IVPUSH PRN (08:26)
--- NOTE | 2019-10-04 08:46 | PN ---
Physical Exam: SUBJECTIVE: Patient seen and examined; Had nausea, will increase dose of oral Zofran. Pending insurance authorization. 10 sys ROS done and negative aside from HPI OBJECTIVE: Vital Signs Period Temp Pulse Resp BP Sys/Avila Pulse Ox Last 24 Hr 97.7 F-98.5 F 74-84 18-19 109-124/59-73 95-96 GENERAL: The patient is awake, alert, and fully oriented, in no acute distress. HEAD: Normal with no signs of trauma. EYES: PERRL, extraocular movements intact, sclera anicteric, conjunctiva clear. No ptosis. ENT: Ears normal, nares patent, oropharynx clear without exudates, moist mucous membranes. NECK: Trachea midline, full range of motion, supple. LUNGS: Breath sounds equal, clear to auscultation bilaterally, no wheezes, no crackles, no accessory muscle use. HEART: Regular rate and rhythm, S1, S2 without murmur, rub or gallop. ABDOMEN: Soft, nontender, nondistended, normoactive bowel sounds, no guarding, no rebound, no hepatosplenomegaly, no masses. EXTREMITIES: 2+ pulses, warm, well-perfused, no edema. NEUROLOGICAL: Cranial nerves II through XII grossly intact. Normal speech, gait not observed. PSYCH: Normal mood, normal affect. SKIN: Warm, dry, normal turgor, no rashes or lesions noted Laboratory Results - last 24 hr 10/03/19 10/03/19 07:45 07:45 WBC 6.1 RBC 2.74 L Hgb 9.3 L Hct 26.9 L MCV 98.1 H MCH 33.8 H MCHC 34.4 RDW 16.3 H Plt Count 221 MPV 9.0 Sodium 139 Potassium 4.3 Chloride 105 Carbon Dioxide 26 Anion Gap 8 BUN 66.0 H Creatinine 2.1 H Est GFR (CKD-EPI)AfAm 26.39 Est GFR (CKD-EPI)NonAf 22.77 Random Glucose 102 Calcium 9.6 Phosphorus 4.8 Magnesium 1.7 L Total Bilirubin 0.4 AST 50 H ALT 15 Alkaline Phosphatase 182 H Total Protein 6.0 L Albumin 2.4 L Active Medications Generic Name Dose Route Start Last Admin Trade Name Freq PRN Reason Stop Dose Admin Acetaminophen 650 mg 09/23/19 13:24 Tylenol - PO Q6H PRN Fever Or Pain 1-3 Albuterol/Ipratropium 1 amp 09/23/19 14:00 10/04/19 07:30 Duoneb - NEB 1 amp RTID TRICIA Administration Artificial Tears 1 drop 09/23/19 13:24 Artificial Tears OU BID PRN DRY EYES Calcitonin 1 spray 09/24/19 10:00 10/03/19 09:19 Miacalcin [place] - NS 1 spray DAILY TRICIA Administration Carvedilol 3.125 mg 09/23/19 22:00 10/03/19 21:19 Coreg - PO 3.125 mg BID TRICIA Administration Cholecalciferol 3,000 unit 09/24/19 10:00 10/03/19 09:18 Vitamin D3 - PO 3,000 unit DAILY TRICIA Administration Sodium Chloride 1,000 mls @ 75 mls/hr 09/24/19 13:00 10/03/19 12:59 1/2 Normal Saline IV Not Given ASDIR TRICIA Ondansetron HCl 4 mg 09/23/19 14:00 10/04/19 06:15 Zofran - PO 4 mg TID TRICIA Administration Pregabalin 75 mg 10/04/19 10:00 Lyrica - PO BID TRICIA Tramadol HCl 50 mg 10/02/19 12:29 10/03/19 09:18 Ultram - PO 50 mg Q6H PRN Administration PAIN LEVEL 6-10 ASSESSMENT/PLAN: Patient presents to the hospital with deconditioning, full body shakes, found to have worsening renal failure, sepsis cellulitis/colitis related, and severe hydronephrosis. She is status post nephrostomy and stent adjustment with urology and has good urine output. Per oncology service would not benefit from a curative approach and due to the progression of her disease and her associated symptoms she is determined that she would be best suited to go DNR/ DNI and focus on the quality of life as opposed to the quantity of time left. Therefore she will be discharged when appropriate and cleared, the most form will be completed regarding full hospice care versus just DNR/DNI, and we will continue to update the patient and the family, anticipate discharge within 24 to 36 hours. Problems include: -Worsening renal failure, status post stenting with worsening hydronephrosis. -Sepsis secondary to cellulitis, colitis-Resolved. Transitioned to PO abx per ID. -Metastatic breast cancer -Compression fracture of the lumbar spine, L4. UE pain neuropathic; considered EMG -Lumbar spinal stenosis, pending neurosurgical evaluation -Ongoing anemia of chronic disease, transfusion threshold for hemoglobin of 8 -Severe hydronephrosis status post stenting, s/p nephrostomy -Bilateral pleural effusions, right greater than left. Follow-up with interventional radiology consult to see if thoracentesis would be indicated. BNP is elevated which is secondary to either primary process but likely is shrouded by the renal retention. -Multiple lytic lesions, MRI of the lumbar spine noted. C-spine has been completed. Imaging of the femurs is noted as well. -Leukopenia, secondary to global oncologic processes -History of hypertension -History of hyperlipidemia -Severe hypoalbuminemia secondary to cancer, protein calorie malnutrition. -Hyperphosphatemia secondary to renal failure, nephrology following. Continuing to monitor -Transaminitis with elevated alkaline phosphatase, up to 151 from 141 with AST persistently elevated. Trend CMP -Leukocytosis secondary to acute sepsis, improved, continue to monitor. -Chronic lymphedema of the left arm secondary to breast cancer in the surrounding issues, complicates the cellulitis -Overweight, BMI 25 DNR/DNI, continue monitor on the medicine service pending placement. Visit type - Emergency Visit Emergency Visit: Yes ED Registration Date: 09/17/19 Care time: The patient presented to the Emergency Department on the above date and was hospitalized for further evaluation of their emergent condition. - New Patient This patient is new to me today: No - Critical Care Critical Care patient: No
[2019-10-04] MEDS: CALCITONIN - SALMON SYNTHETIC 200 UNITS/SPRAY NS SCH (09:30)
[2019-10-04] MEDS: CHOLECALCIFEROL (VIT D3) 1,000 UNIT (25 MCG) TABLET PO SCH (09:30)
[2019-10-04] MEDS: CARVEDILOL 3.125 MG TABLET (FP) PO SCH ×2 (09:30→21:01)
[2019-10-04] MEDS: PREGABALIN 75 MG CAPSULE PO SCH ×2 (09:30→21:02)
[2019-10-04 09:48] LABS: BLOOD UREA NITROGEN 71.3 mg/dL (7-18); CALCIUM 9.3 mg/dL (8.5-10.1); POTASSIUM 4.3 mmol/L (3.5-5.1)
--- NOTE | 2019-10-04 12:53 | PN ---
Progress Note (short form) - Note Progress Note: PULMONARY Resting in NAD. Denies shortness of breath or chest pain. No acute events overnight. VSS/AFEBRILE Gen: NAD at rest Heart: RRR Lung: decreased breath sounds at the bases Abd: soft, nontender, Intact ostomy Ext: no edema CHART REVIEWED A/P Acute on Chronic Diastolic Heart Failure Acute on Chronic Renal Faiulre Bilateral Hydronephrosis Cellulitis Sepsis Metastatic Breast Ca HTN Hyperlipidemia Anemia - BD TX PRN - O2 as needed - inhaled bronchodilators - DVT prophylaxis - Awaiting SNF Comfort MITCHELL MD Problem List - Problems (1) Pleural effusion Code(s): J90 - PLEURAL EFFUSION, NOT ELSEWHERE CLASSIFIED (2) Hypotension Code(s): I95.9 - HYPOTENSION, UNSPECIFIED Qualifiers: Hypotension type: other hypotension type Qualified Code(s): I95.89 - Other hypotension (3) Lymphedema Code(s): I89.0 - LYMPHEDEMA, NOT ELSEWHERE CLASSIFIED (4) Anemia Code(s): D64.9 - ANEMIA, UNSPECIFIED (5) 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 (6) Metastatic disease Code(s): C80.1 - MALIGNANT (PRIMARY) NEOPLASM, UNSPECIFIED
--- NOTE | 2019-10-04 17:06 | PN ---
Progress Note, Physician History of Present Illness: Pt seen and examined at bedside. She is awake and alert. - Current Medication List Current Medications: Active Medications Acetaminophen (Tylenol -) 650 mg PO Q6H PRN PRN Reason: Fever Or Pain 1-3 Albuterol/Ipratropium (Duoneb -) 1 amp NEB RTID [facility] Last Admin: 10/04/19 13:49 Dose: Not Given Artificial Tears (Artificial Tears) 1 drop OU BID PRN PRN Reason: DRY EYES Calcitonin (Miacalcin [place] -) 1 spray NS DAILY [facility] Last Admin: 10/04/19 09:30 Dose: 1 spray Carvedilol (Coreg -) 3.125 mg PO BID [facility] Last Admin: 10/04/19 09:30 Dose: 3.125 mg Cholecalciferol (Vitamin D3 -) 3,000 unit PO DAILY [facility] Last Admin: 10/04/19 09:30 Dose: 3,000 unit Ondansetron HCl (Zofran -) 4 mg PO TID [facility] Last Admin: 10/04/19 14:16 Dose: 4 mg Pregabalin (Lyrica -) 75 mg PO BID [facility] Last Admin: 10/04/19 09:30 Dose: 75 mg Tramadol HCl (Ultram -) 50 mg PO Q6H PRN PRN Reason: PAIN LEVEL 6-10 Last Admin: 10/03/19 09:18 Dose: 50 mg - Objective Vital Signs: Vital Signs Temperature 98.3 F 10/04/19 14:49 Pulse Rate 88 10/04/19 14:49 Respiratory Rate 18 10/04/19 14:49 Blood Pressure 105/57 L 10/04/19 14:49 O2 Sat by Pulse Oximetry (%) 95 10/04/19 09:00 Constitutional: Yes: Calm Eyes: Yes: Conjunctiva Clear HENT: Yes: Atraumatic Neck: Yes: Supple Cardiovascular: Yes: S1, S2 Respiratory: Yes: CTA Bilaterally Gastrointestinal: Yes: Soft Genitourinary: Yes: Bahena Present, Other (left nephrostomy) Musculoskeletal: Yes: WNL Edema: No Neurological: Yes: Oriented Psychiatric: Yes: Oriented Labs: CBC, BMP 10/03/19 07:45 10/04/19 06:30 INR, PTT INR 1.01 (0.83-1.09) 09/13/19 14:40 Problem List - Problems (1) Renal dysfunction Code(s): N28.9 - DISORDER OF KIDNEY AND URETER, UNSPECIFIED (2) Hydronephrosis Code(s): N13.30 - UNSPECIFIED HYDRONEPHROSIS Qualifiers: Hydronephrosis type: unspecified Qualified Code(s): N13.30 - Unspecified hydronephrosis Assessment/Plan Current Medications Generic Name Dose Route Start Last Admin Trade Name Freq PRN Reason Stop Dose Admin Acetaminophen 650 mg 09/23/19 13:24 Tylenol - PO Q6H PRN Fever Or Pain 1-3 Albuterol/Ipratropium 1 amp 09/23/19 14:00 10/04/19 13:49 Duoneb - NEB Not Given RTID TRICIA Artificial Tears 1 drop 09/23/19 13:24 Artificial Tears OU BID PRN DRY EYES Calcitonin 1 spray 09/24/19 10:00 10/04/19 09:30 Miacalcin [place] - NS 1 spray DAILY TRICIA Administration Carvedilol 3.125 mg 09/23/19 22:00 10/04/19 09:30 Coreg - PO 3.125 mg BID TRICIA Administration Cholecalciferol 3,000 unit 09/24/19 10:00 10/04/19 09:30 Vitamin D3 - PO 3,000 unit DAILY [facility] Administration Ondansetron HCl 4 mg 09/23/19 14:00 10/04/19 14:16 Zofran - PO 4 mg TID TRICIA Administration Pregabalin 75 mg 10/04/19 10:00 10/04/19 09:30 Lyrica - PO 75 mg BID TRICIA Administration Tramadol HCl 50 mg 10/02/19 12:29 10/03/19 09:18 Ultram - PO 50 mg Q6H PRN Administration PAIN LEVEL 6-10 Impression 1. CKD 2. leukopenia 3. obstructive uropathy with bilateral hydro 4. breast cancer with mets 5. HTN 6. hyperlipidemia 7. anemia 8. ALEKSANDER 9. 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
[2019-10-04 19:29] LABS: EPI CELLS 5.1 /HPF (0-5/HPF); HYALINE CASTS 20 /lpf (0-8); PH,URINE 5.5 (5.0-8.0); URINE APPEARANCE TURBID; URINE BACTERIA 2236.1 /hpf (NEGATIVE); URINE BILIRUBIN NEGATIVE (NEGATIVE); URINE COLOR YELLOW; URINE GLUCOSE (UA) NEGATIVE (NEGATIVE); URINE KETONE NEGATIVE (NEGATIVE); URINE LEUK ESTERASE 3+ (NEGATIVE); URINE NITRITE NEGATIVE (NEGATIVE); URINE PROTEIN 4+ (NEGATIVE); URINE RBC 94 /hpf (0-4); URINE UROBILINOGEN 0.2 mg/dL (0.2-1.0); URINE WBC 900 /hpf (0-5)
[2019-10-04] MEDS ORDERED: ONDANSETRON 4 MG TABLET PO SCH (22:00)
[2019-10-05] MEDS: ONDANSETRON 8 MG TABLET (FP) PO SCH ×4 (06:24→21:28)
[2019-10-05] MEDS: ALBUTEROL SO4 2.5/IPRATROPIUM 0.5 INH SOL 3 ML VIAL.NEB. NEB SCH ×3 (07:20→19:45)
[2019-10-05] MEDS: CHOLECALCIFEROL (VIT D3) 1,000 UNIT (25 MCG) TABLET PO SCH (09:49)
[2019-10-05] MEDS: PREGABALIN 75 MG CAPSULE PO SCH ×2 (09:49→21:28)
[2019-10-05] MEDS: CALCITONIN - SALMON SYNTHETIC 200 UNITS/SPRAY NS SCH (09:49)
[2019-10-05] MEDS: CARVEDILOL 3.125 MG TABLET (FP) PO SCH ×2 (09:49→21:28)
[2019-10-05] MEDS ORDERED: PT OWN MED DRAWER 7, Y5N ONE (13:47)
[2019-10-05] MEDS ORDERED: ACETAMINOPHEN 325 MG TABLET (FP) PO ONE (14:10)
[2019-10-05] MEDS ORDERED: PIPERACILLIN/TAZOBACTAM 3.375 GM VIAL IVPB ONE ×2 (15:16→18:45)
--- NOTE | 2019-10-05 15:16 | PN ---
Physical Exam: SUBJECTIVE: Patient seen and examined. Pt reports feeling tired. Nurses reported fever of 102.1F, pt's castellanos draining cloudy urine. Nephrostomy bag becoming cloudy as well. Denies f/c/n/v/d/sob OBJECTIVE: Vital Signs Period Temp Pulse Resp BP Sys/Avila Pulse Ox Last 24 Hr 97.8 F-102.7 F 87-93 16-18 105-124/57-70 95-95 GENERAL: The patient is awake, alert. Pt is much improved today. EYES: PERRL, extraocular movements intact, sclera anicteric, conjunctiva clear. ENT: oropharynx clear without exudates, moist mucous membranes. NECK: Trachea midline, full range of motion, supple. LUNGS: Breath sounds equal, clear to auscultation bilaterally, no wheezes, no crackles, HEART: Regular rate and rhythm, S1, S2 without murmur, rub or gallop. ABDOMEN: Soft, nontender, nondistended, normoactive bowel sounds, no guarding, Colostomy bag on the right- draining semi-solid stool. Left nephrostomy tube in place- draining cloudy urine. Castellanos placed back- draining cloudy urine- urine improving EXTREMITIES: 2+ pulses, warm, well-perfused, no edema. RUE erythema improved, swelling improved NEUROLOGICAL: Cranial nerves II through XII grossly intact. Normal speech PSYCH: Normal mood, normal affect. Laboratory Results - last 24 hr CBC,CMP WBC 6.1 K/mm3 (4.0-10.0) 10/03/19 07:45 RBC 2.74 M/mm3 (3.60-5.2) L 10/03/19 07:45 Hgb 9.3 GM/dL (10.7-15.3) L 10/03/19 07:45 Hct 26.9 % (32.4-45.2) L 10/03/19 07:45 MCV 98.1 fl (80-96) H 10/03/19 07:45 MCH 33.8 pg (25.7-33.7) H 10/03/19 07:45 MCHC 34.4 g/dl (32.0-36.0) 10/03/19 07:45 RDW 16.3 % (11.6-15.6) H 10/03/19 07:45 Plt Count 221 K/MM3 (134-434) 10/03/19 07:45 MPV 9.0 fl (7.5-11.1) 10/03/19 07:45 Absolute Neuts (auto) 8.9 K/mm3 (1.5-8.0) H 09/28/19 07:05 Neutrophils % 81.8 % (42.8-82.8) 09/28/19 07:05 Neutrophils % (Manual) 77.0 % (42.8-82.8) 09/21/19 06:40 Band Neutrophils % 10.0 % 09/21/19 06:40 Lymphocytes % 7.2 % (8-40) L 09/28/19 07:05 Lymphocytes % (Manual) 0.0 % (8-40) L 09/21/19 06:40 Monocytes % 6.7 % (3.8-10.2) 09/28/19 07:05 Monocytes % (Manual) 9 % (3.8-10.2) 09/21/19 06:40 Eosinophils % 3.9 % (0-4.5) 09/28/19 07:05 Eosinophils % (Manual) 2.0 % (0-4.5) 09/21/19 06:40 Basophils % 0.4 % (0-2.0) 09/28/19 07:05 Basophils % (Manual) 0.0 % (0-2.0) 09/21/19 06:40 Myelocytes % (Man) 0 % (0-2) 09/21/19 06:40 Promyelocytes % (Man) 0 % (0-2) 09/21/19 06:40 Blast Cells % (Manual) 0 % (0-0) 09/21/19 06:40 Nucleated RBC % 0 % (0-0) 09/28/19 07:05 Metamyelocytes 0 % (0-2) 09/21/19 06:40 Hypochromia 0 09/21/19 06:40 Platelet Estimate Normal 09/21/19 06:40 Polychromasia 0 09/21/19 06:40 Poikilocytosis 1+ 09/21/19 06:40 Anisocytosis 1+ 09/21/19 06:40 Microcytosis 1+ 09/21/19 06:40 Macrocytosis 0 09/21/19 06:40 Spherocytes 1+ 09/21/19 06:40 Target Cells Few 09/15/19 13:50 Ovalocytes 1+ 09/21/19 06:40 Acanthocytes (Spur) 1+ 09/21/19 06:40 ESR 55 mm/hr (0-30) H 09/21/19 06:40 Retic Count 1.39 % (0.5-1.5) 09/22/19 07:34 Sodium 139 mmol/L (136-145) 10/04/19 06:30 Potassium 4.3 mmol/L (3.5-5.1) 10/04/19 06:30 Chloride 105 mmol/L (98-107) 10/04/19 06:30 Carbon Dioxide 27 mmol/L (21-32) 10/04/19 06:30 Anion Gap 8 MMOL/L (8-16) 10/04/19 06:30 BUN 71.3 mg/dL (7-18) H 10/04/19 06:30 Creatinine 2.0 mg/dL (0.55-1.3) H 10/04/19 06:30 Est GFR (CKD-EPI)AfAm 28.00 10/04/19 06:30 Est GFR (CKD-EPI)NonAf 24.16 10/04/19 06:30 POC Glucometer 116 UNITS (80-120) 09/16/19 12:06 Random Glucose 83 mg/dL (74-106) 10/04/19 06:30 Serum Osmolality 301 mosm/kg (278-305) 09/19/19 06:50 Lactic Acid 1.0 mmol/L (0.4-2.0) 09/13/19 18:33 Calcium 9.3 mg/dL (8.5-10.1) 10/04/19 06:30 Phosphorus 4.8 mg/dL (2.5-4.9) 10/03/19 07:45 Magnesium 1.7 mg/dL (1.8-2.4) L 10/03/19 07:45 Iron 44 ug/dL (50-175) L 09/14/19 07:00 TIBC 248 ug/dL (250-450) L 09/14/19 07:00 Iron Saturation 17 % (17.5-39) L 09/14/19 07:00 Unsaturated IBC 204 ug/dL (200-275) 09/14/19 07:00 Ferritin 363.3 ng/ml (8-388) 09/16/19 07:00 Total Bilirubin 0.4 mg/dL (0.2-1) 10/03/19 07:45 GGT 121 U/L (5-85) H 09/30/19 07:50 AST 50 U/L (15-37) H 10/03/19 07:45 ALT 15 U/L (13-61) 10/03/19 07:45 Alkaline Phosphatase 182 U/L (45-117) H 10/03/19 07:45 Creatine Kinase 73 U/L (26-192) 09/13/19 14:10 Troponin I Cancelled 09/13/19 14:40 C-Reactive Protein 4.7 MG/DL (0.00-0.3) H 09/21/19 06:40 B-Natriuretic Peptide 5940.9 pg/ml (5-125) H 09/19/19 06:50 Total Protein 6.0 g/dl (6.4-8.2) L 10/03/19 07:45 Albumin 2.4 g/dl (3.4-5.0) L 10/03/19 07:45 Vitamin B12 591 pg/ml (193-986) 09/14/19 07:00 Serum Folate 29 ng/mL (3.1-17.5) H 09/14/19 07:00 TSH 3.02 uIU/ml (0.358-3.74) 09/16/19 07:00 Active Medications Generic Name Dose Route Start Last Admin Trade Name Darnellq PRN Reason Stop Dose Admin Acetaminophen 650 mg 09/23/19 13:24 10/05/19 14:00 Tylenol - PO 650 mg Q6H PRN Administration Fever Or Pain 1-3 Albuterol/Ipratropium 1 amp 09/23/19 14:00 10/05/19 07:20 Duoneb - NEB Not Given RTID TRICIA Artificial Tears 1 drop 09/23/19 13:24 Artificial Tears OU BID PRN DRY EYES Calcitonin 1 spray 09/24/19 10:00 10/05/19 09:49 Miacalcin [place] - NS 1 spray DAILY TRICIA Administration Carvedilol 3.125 mg 09/23/19 22:00 10/05/19 09:49 Coreg - PO 3.125 mg BID TRICIA Administration Cholecalciferol 3,000 unit 09/24/19 10:00 10/05/19 09:49 Vitamin D3 - PO 3,000 unit DAILY TRICIA Administration Piperacillin Sod/Tazobactam 50 mls @ 100 mls/hr 10/05/19 14:45 Sod 3.375 gm/ Dextrose IVPB 10/06/19 14:45 Q8H-IV TRICIA Protocol Ondansetron HCl 8 mg 10/05/19 06:00 10/05/19 13:54 Zofran - PO Not Given TID TRICIA Pregabalin 75 mg 10/04/19 10:00 10/05/19 09:49 Lyrica - PO 75 mg BID TRICIA Administration Tramadol HCl 50 mg 10/02/19 12:29 10/03/19 09:18 Ultram - PO 50 mg Q6H PRN Administration PAIN LEVEL 6-10 ASSESSMENT/PLAN: 73 y/o F, pmh of Breast cancer stage 3A w/ mets to the spine, peritoneal cavity , colon, spine, s/p right mastectomy, s/p radiation, b/l ureteral stents w/ b/l hydro, mild b/l pleural effusion, presents c/o of weakness of 1-2 weeks duration and abdominal cramping of 1 day duration #ALEKSANDER, elevated Cre b/l hydronephrosis s/p ureteral stents Dr. Flores discussed comfort care with pt, she understood and would like comfort care/ DNR/DNI. SW planning [facility] vs calvary Discussed with niece- explained pts situation. Family verifies understanding #Febrile 102.1F likely 2/2 to castellanos UTI Urine cloudy, nephrostomy bag cloudy Empiric abx- Zosyn Q8H CXR neg UCx pending BCx pending #Elevated ALP likely 2/2 to metastatic process of bones vs biliary disease #New Systolic CHF carvedolol 3.125 BID Progressive renal dysfunction precludes use of Entresto, ACEI, ARB, or spironolactone at this time. Consider hydralazine + nitrate after pt's renal function as stabilized #Macrocytic Anemia ? sec to CTx vs chronic disease vs marrow infiltration by tumor process. Hb improved Ferrous sulfate #Right pelvic mass US bladder- cystic mass like density right hemipelvis- irregular mass like density if its anterior wall. #Abdominal cramping/Generalized spasm likely 2/2 to dehydration 2/2 Failure to thrive vs Navelbine adverse effect now resolved Flexeril prn Diet regular IVF 1/2 NS #Decreased mood Will service counselor and consider antidepressants if needed #DVTppx hep sq TID FEN monitor lytes Regular diet 1/2 NS at 75 Dispo: cont Abx, f/u heme/onc for official plan, f/u with SW about SNF, Visit type - Emergency Visit Emergency Visit: Yes ED Registration Date: 09/17/19 Care time: The patient presented to the Emergency Department on the above date and was hospitalized for further evaluation of their emergent condition. - New Patient This patient is new to me today: Yes Date on this admission: 10/05/19 - Critical Care Critical Care patient: No - Discharge Referral Referred to [facility] Med P.C.: No ATTENDING PHYSICIAN STATEMENT I saw and evaluated the patient. I reviewed the resident's note and discussed the case with the resident. I agree with the resident's findings and plan as documented. SUBJECTIVE: OBJECTIVE: ASSESSMENT AND PLAN:
[2019-10-05] MEDS ORDERED: DEXTROSE 5%-WATER - 50 ML IVPB ONE ×2 (15:17→18:45)
[2019-10-05] MEDS: PIPERACILLIN/TAZOB 3.375 GM 3.375 GM in DEXTROSE 5%-WATER - 50 ML IVPB SCH ×2 (15:25→18:52)
[2019-10-05 17:03] LABS: EPI CELLS 2.6 /HPF (0-5/HPF); HYALINE CASTS 5 /lpf (0-8); URINE APPEARANCE TURBID; URINE BACTERIA 25.1 /hpf (NEGATIVE); URINE BILIRUBIN NEGATIVE (NEGATIVE); URINE COLOR YELLOW; URINE GLUCOSE (UA) NEGATIVE (NEGATIVE); URINE KETONE NEGATIVE (NEGATIVE); URINE LEUK ESTERASE 1+ (NEGATIVE); URINE NITRITE NEGATIVE (NEGATIVE); URINE PROTEIN 1+ (NEGATIVE); URINE RBC 8 /hpf (0-4); URINE UROBILINOGEN 0.2 mg/dL (0.2-1.0); URINE WBC 11 /hpf (0-5)
[2019-10-05 17:14] LABS: HEMATOCRIT 27.3 % (32.4-45.2); HEMOGLOBIN 9.1 GM/dL (10.7-15.3); MCH 32.8 pg (25.7-33.7); MCHC 33.3 g/dl (32.0-36.0); MEAN CELL VOLUME 98.3 fl (80-96); PLATELET COUNT 239 K/MM3 (134-434); RBC 2.77 M/mm3 (3.60-5.2); RDW 16.3 % (11.6-15.6)
[2019-10-05 17:39] LABS: BLOOD UREA NITROGEN 63.1 mg/dL (7-18); CALCIUM 9.5 mg/dL (8.5-10.1); POTASSIUM 4.3 mmol/L (3.5-5.1)
[2019-10-05 17:45] LABS: URINE CRYSTALS URIC ACID /hpf
--- NOTE | 2019-10-05 18:33 | PN ---
Progress Note, Physician History of Present Illness: Pt seen and examined at bedside. She is awake and alert. She denies shortness of breath. - Current Medication List Current Medications: Active Medications Acetaminophen (Tylenol -) 650 mg PO Q6H PRN PRN Reason: Fever Or Pain 1-3 Last Admin: 10/05/19 14:00 Dose: 650 mg Albuterol/Ipratropium (Duoneb -) 1 amp NEB RTID [facility] Last Admin: 10/05/19 14:45 Dose: 1 amp Artificial Tears (Artificial Tears) 1 drop OU BID PRN PRN Reason: DRY EYES Calcitonin (Miacalcin [place] -) 1 spray NS DAILY [facility] Last Admin: 10/05/19 09:49 Dose: 1 spray Carvedilol (Coreg -) 3.125 mg PO BID [facility] Last Admin: 10/05/19 09:49 Dose: 3.125 mg Cholecalciferol (Vitamin D3 -) 3,000 unit PO DAILY [facility] Last Admin: 10/05/19 09:49 Dose: 3,000 unit Piperacillin Sod/Tazobactam (Sod 3.375 gm/ Dextrose) 50 mls @ 100 mls/hr IVPB Q8H-IV [facility]; Protocol Stop: 10/06/19 14:59 Last Admin: 10/05/19 15:25 Dose: 100 mls/hr Ondansetron HCl (Zofran -) 8 mg PO TID [facility] Last Admin: 10/05/19 13:54 Dose: Not Given Pregabalin (Lyrica -) 75 mg PO BID [facility] Last Admin: 10/05/19 09:49 Dose: 75 mg Tramadol HCl (Ultram -) 50 mg PO Q6H PRN PRN Reason: PAIN LEVEL 6-10 Last Admin: 10/03/19 09:18 Dose: 50 mg - Objective Vital Signs: Vital Signs Temperature 102.7 F H 10/05/19 14:00 Pulse Rate 102 H 10/05/19 14:54 Respiratory Rate 16 10/05/19 14:54 Blood Pressure 126/67 10/05/19 14:54 O2 Sat by Pulse Oximetry (%) 95 10/05/19 09:00 Constitutional: Yes: Calm Eyes: Yes: Conjunctiva Clear HENT: Yes: Atraumatic Neck: Yes: Supple Cardiovascular: Yes: S1, S2 Respiratory: Yes: CTA Bilaterally Gastrointestinal: Yes: Soft Genitourinary: Yes: Bahena Present, Other (left nephrostomy) Musculoskeletal: Yes: WNL Edema: No Neurological: Yes: Oriented Psychiatric: Yes: Oriented Labs: CBC, BMP 10/05/19 16:25 10/05/19 16:25 INR, PTT INR 1.01 (0.83-1.09) 09/13/19 14:40 Problem List - Problems (1) Renal dysfunction Code(s): N28.9 - DISORDER OF KIDNEY AND URETER, UNSPECIFIED (2) Hydronephrosis Code(s): N13.30 - UNSPECIFIED HYDRONEPHROSIS Qualifiers: Hydronephrosis type: unspecified Qualified Code(s): N13.30 - Unspecified hydronephrosis Assessment/Plan Current Medications Generic Name Dose Route Start Last Admin Trade Name Freq PRN Reason Stop Dose Admin Acetaminophen 650 mg 09/23/19 13:24 10/05/19 14:00 Tylenol - PO 650 mg Q6H PRN Administration Fever Or Pain 1-3 Albuterol/Ipratropium 1 amp 09/23/19 14:00 10/05/19 14:45 Duoneb - NEB 1 amp RTID [facility] Administration Artificial Tears 1 drop 09/23/19 13:24 Artificial Tears OU BID PRN DRY EYES Calcitonin 1 spray 09/24/19 10:00 10/05/19 09:49 Miacalcin [place] - NS 1 spray DAILY [facility] Administration Carvedilol 3.125 mg 09/23/19 22:00 10/05/19 09:49 Coreg - PO 3.125 mg BID [facility] Administration Cholecalciferol 3,000 unit 09/24/19 10:00 10/05/19 09:49 Vitamin D3 - PO 3,000 unit DAILY [facility] Administration Piperacillin Sod/Tazobactam 50 mls @ 100 mls/hr 10/05/19 15:00 10/05/19 15:25 Sod 3.375 gm/ Dextrose IVPB 10/06/19 14:59 100 mls/hr Q8H-IV [facility] Administration Protocol Ondansetron HCl 8 mg 10/05/19 06:00 10/05/19 13:54 Zofran - PO Not Given TID [facility] Pregabalin 75 mg 10/04/19 10:00 10/05/19 09:49 Lyrica - PO 75 mg BID [facility] Administration Tramadol HCl 50 mg 10/02/19 12:29 10/03/19 09:18 Ultram - PO 50 mg Q6H PRN Administration PAIN LEVEL 6-10 Impression 1. CKD 2. leukopenia 3. obstructive uropathy with bilateral hydro 4. breast cancer with mets 5. HTN 6. hyperlipidemia 7. anemia 8. ALEKSANDER 9. CHF Plan - renal function slowly stabilizing - repeat labs in an - pt is making urine - avoid nsaids Dr Land
[2019-10-06] MEDS: PIPERACILLIN/TAZOB 3.375 GM 3.375 GM in DEXTROSE 5%-WATER - 50 ML IVPB SCH ×2 (02:54→09:05)
[2019-10-06] MEDS ORDERED: DEXTROSE 5%-WATER - 50 ML IVPB ONE ×3 (03:51→17:37)
[2019-10-06] MEDS ORDERED: PIPERACILLIN/TAZOBACTAM 3.375 GM VIAL IVPB ONE ×2 (03:51→08:58)
[2019-10-06] MEDS: ONDANSETRON 8 MG TABLET (FP) PO SCH ×3 (06:22→21:53)
[2019-10-06] MEDS: ALBUTEROL SO4 2.5/IPRATROPIUM 0.5 INH SOL 3 ML VIAL.NEB. NEB SCH ×3 (08:12→19:41)
--- NOTE | 2019-10-06 08:48 | PN ---
Teaching Attending Note Name of Resident: Toñito Quintana ATTENDING PHYSICIAN STATEMENT I saw and evaluated the patient. I reviewed the resident's note and discussed the case with the resident. I agree with the resident's findings and plan as documented. ATTENDING PHYSICIAN STATEMENT I saw and evaluated the patient. I reviewed the resident's note and discussed the case with the resident. I agree with the resident's findings and plan as documented. Seen and examined; please see resident note for further historical information. I personally verified all limon historical information and exam findings. Personally interpreted all imaging and diagnostics and reviewed appropriate consults. I reviewed all labs and vital signs as per resident note and EMR as documented. I agree with the above assessment and plan unless supplemented by myself in the following. Still no updates regarding placement, discussing with psychosocial rehabilitation counselor tomorrow. As of this evening, the patient was febrile to 1 she was noted to be 3 broadened on antibiotics as per infectious disease consult. We will discuss when we can convert back over to oral and she has been pancultured. This includes from both her nephrostomy and Bahena. She is asked for us to reach out to urology to determine if the nephrostomy and Bahena could be removed. Pending callback. VS, labs, imaging reviewed NAD, AAO, resting comfortably in bed. RRR s1/2 no mgr Normal muscle tone, moves all 5 extremities with normal apparent strength Neck is supple, trachea midline, no errol LN Lungs CTAB with sym expansion NT ND +BS no errol organomegaly; Colostomy with normal-appearing stool CN2-12 wnl; no FND NC AT EOMI PERRLA Normal mood, appropriate behavior, euthymic affect No skin breakdown or rashes noted. No signs of worsening cellulitis in the lymphedema afflicted right arm. Microbiology 10/05/19 16:25 Blood - Peripheral Venous Blood Culture - Preliminary NO GROWTH OBTAINED AFTER 24 HOURS, INCUBATION TO CONTINUE FOR 4 DAYS. 10/05/19 16:25 Blood - Peripheral Venous Blood Culture - Preliminary NO GROWTH OBTAINED AFTER 24 HOURS, INCUBATION TO CONTINUE FOR 4 DAYS. 10/04/19 18:00 Urine - Urine Bahena Urine Culture - Preliminary Lactose Fermenting Neg Bacilli 09/27/19 16:47 Stool Clostridioides difficile Antigen - Final 09/27/19 16:47 Stool Clostridioides difficile Toxin Assay - Final 09/24/19 18:12 Urine - Urine Nephrostomy Tube Left Urine Culture - Final NO GROWTH OBTAINED 09/19/19 14:00 Rectal Swab Salmonella/Shigella Culture - Final NO GROWTH OF SALMONELLA OR SHIGELLA SPECIES OBTAINED 09/19/19 14:00 Rectal Swab Campylobacter Culture - Final NO GROWTH OF CAMPYLOBACTER SPECIES OBTAINED 09/19/19 14:00 Rectal Swab Yersinia Culture - Final NO GROWTH OF YERSINIA SPECIES OBTAINED 09/19/19 14:00 Rectal Swab Vibrio Culture - Final NO GROWTH OF VIBRIO SPECIES OBTAINED 09/19/19 14:00 Rectal Swab Escherichia coli 0157 Culture - Final NO GROWTH OF E COLI 0157 OBTAINED 09/19/19 14:00 Stool Clostridioides difficile Antigen - Final 09/19/19 14:00 Stool Clostridioides difficile Toxin Assay - Final 09/19/19 14:00 Colon Fluid Gram Stain - Final 09/18/19 11:30 Urine - Urine Clean Catch Urine Culture - Final NO GROWTH OBTAINED 09/13/19 14:45 Blood - Peripheral Venous Blood Culture - Final NO GROWTH AFTER 5 DAYS INCUBATION 09/13/19 14:45 Blood - Peripheral Venous Blood Culture - Final NO GROWTH AFTER 5 DAYS INCUBATION 09/13/19 14:50 Urine - Urine Clean Catch Urine Culture - Final NO GROWTH OBTAINED ASSESSMENT AND PLAN: Patient presents to the hospital with deconditioning, full body shakes, found to have worsening renal failure, sepsis cellulitis/colitis related, and severe hydronephrosis. She is status post nephrostomy and stent adjustment with urology and has good urine output. Per oncology service would not benefit from a curative approach and due to the progression of her disease and her associated symptoms she is determined that she would be best suited to go DNR/ DNI and focus on the quality of life as opposed to the quantity of time left. Therefore she will be discharged when appropriate and cleared, the most form will be completed regarding full hospice care versus just DNR/DNI. Infectious disease wishes to keep the patient inpatient for another day and then convert over to p.o. [facility] and can be discharged when moved to oral antibiotics Problems include: -Worsening renal failure, status post stenting with worsening hydronephrosis. -Sepsis secondary to cellulitis, colitis-Resolved. Transitioned to PO abx per ID. -Metastatic breast cancer -Compression fracture of the lumbar spine, L4. UE pain neuropathic; considered EMG -Lumbar spinal stenosis, pending neurosurgical evaluation -Ongoing anemia of chronic disease, transfusion threshold for hemoglobin of 8 -Severe hydronephrosis status post stenting, s/p nephrostomy -Bilateral pleural effusions, right greater than left. Follow-up with interventional radiology consult to see if thoracentesis would be indicated. BNP is elevated which is secondary to either primary process but likely is shrouded by the renal retention. -Multiple lytic lesions, MRI of the lumbar spine noted. C-spine has been completed. Imaging of the femurs is noted as well. -Leukopenia, secondary to global oncologic processes -History of hypertension -History of hyperlipidemia -Severe hypoalbuminemia secondary to cancer, protein calorie malnutrition. -Hyperphosphatemia secondary to renal failure, nephrology following. Continuing to monitor -Transaminitis with elevated alkaline phosphatase, up to 151 from 141 with AST persistently elevated. Trend CMP -Leukocytosis secondary to acute sepsis, improved, continue to monitor. -Chronic lymphedema of the left arm secondary to breast cancer in the surrounding issues, complicates the cellulitis -Overweight, BMI 25
[2019-10-06] MEDS ORDERED: PT OWN MED DRAWER 7, Y5N ONE ×2 (08:58→20:48)
[2019-10-06] MEDS: CARVEDILOL 3.125 MG TABLET (FP) PO SCH ×2 (09:18→21:53)
[2019-10-06] MEDS: CHOLECALCIFEROL (VIT D3) 1,000 UNIT (25 MCG) TABLET PO SCH (09:18)
[2019-10-06] MEDS: PREGABALIN 75 MG CAPSULE PO SCH ×2 (09:18→21:53)
[2019-10-06] MEDS: CALCITONIN - SALMON SYNTHETIC 200 UNITS/SPRAY NS SCH (09:23)
[2019-10-06 09:28] LABS: HEMATOCRIT 27.1 % (32.4-45.2); HEMOGLOBIN 9.2 GM/dL (10.7-15.3); MCH 33.3 pg (25.7-33.7); MCHC 34.1 g/dl (32.0-36.0); MEAN CELL VOLUME 97.6 fl (80-96); MEAN PLT VOLUME 8.6 fl (7.5-11.1); PLATELET COUNT 209 K/MM3 (134-434); RBC 2.78 M/mm3 (3.60-5.2); RDW 16.4 % (11.6-15.6); WHITE BLOOD COUNT 11.1 K/mm3 (4.0-10.0)
--- NOTE | 2019-10-06 09:52 | PN ---
Progress Note, Physician History of Present Illness: 73 y/o F, pmh of Breast cancer stage 3A w/ mets to the spine, peritoneal cavity , colon, spine currently off chem with Navelbine, s/p right mastectomy, s/p radiation, b/l ureteral stents w/ b/l hydro, mild b/l pleural effusion, initially presented c/o of weakness of 1-2 weeks duration and abdominal cramping of 1 day duration. She reports that 2 weeks ago she came off chemo under Dr. Edward's supervision and had a CAT scan completed showing R>L effusion. She also reports that she has never needed a walker but began to use one since her weakness started. She has been on and off chemo for 2 years now. She reports ALCOCER walking fast and bilateral LE edema, but denies LOC, dizziness, head trauma, palpitations, vertigo, tinnitis, chest pain, shortness of breath, orthopnea, PND. - Current Medication List Current Medications: Active Medications Acetaminophen (Tylenol -) 650 mg PO Q6H PRN PRN Reason: Fever Or Pain 1-3 Last Admin: 10/05/19 14:00 Dose: 650 mg Albuterol/Ipratropium (Duoneb -) 1 amp NEB RTID [facility] Last Admin: 10/06/19 08:12 Dose: 1 amp Artificial Tears (Artificial Tears) 1 drop OU BID PRN PRN Reason: DRY EYES Calcitonin (Miacalcin [place] -) 1 spray NS DAILY [facility] Last Admin: 10/06/19 09:23 Dose: 1 spray Carvedilol (Coreg -) 3.125 mg PO BID [facility] Last Admin: 10/06/19 09:18 Dose: 3.125 mg Cholecalciferol (Vitamin D3 -) 3,000 unit PO DAILY [facility] Last Admin: 10/06/19 09:18 Dose: 3,000 unit Piperacillin Sod/Tazobactam (Sod 3.375 gm/ Dextrose) 50 mls @ 100 mls/hr IVPB Q8H-IV [facility]; Protocol Stop: 10/06/19 14:59 Last Admin: 10/06/19 09:05 Dose: 100 mls/hr Ondansetron HCl (Zofran -) 8 mg PO TID [facility] Last Admin: 10/06/19 06:22 Dose: 8 mg Pregabalin (Lyrica -) 75 mg PO BID [facility] Last Admin: 10/06/19 09:18 Dose: 75 mg Tramadol HCl (Ultram -) 50 mg PO Q6H PRN PRN Reason: PAIN LEVEL 6-10 Last Admin: 10/03/19 09:18 Dose: 50 mg - Objective Vital Signs: Vital Signs Temperature 97.6 F 10/06/19 06:47 Pulse Rate 89 10/06/19 06:47 Respiratory Rate 20 10/06/19 06:47 Blood Pressure 122/65 10/06/19 06:47 O2 Sat by Pulse Oximetry (%) 95 10/05/19 21:00 Eyes: Yes: WNL, Conjunctiva Clear, EOM Intact HENT: Yes: WNL, Atraumatic, Normocephalic Neck: Yes: WNL, Supple, Trachea Midline Cardiovascular: Yes: WNL, Regular Rate and Rhythm Respiratory: Yes: WNL, Regular, CTA Bilaterally Gastrointestinal: Yes: WNL, Normal Bowel Sounds Genitourinary: Yes: WNL Musculoskeletal: Yes: WNL Extremities: Yes: WNL Edema: No Integumentary: Yes: WNL Neurological: Yes: WNL, Alert, Oriented ...Motor Strength: WNL Psychiatric: Yes: WNL Labs: CBC, BMP 10/06/19 08:20 INR, PTT INR 1.01 (0.83-1.09) 09/13/19 14:40 Assessment/Plan - Problems (1) Acute on chronic systolic (congestive) heart failure Assessment/Plan: ECHO: Severely reduced LVEF (20%); minimal-mild aortic stenosis (may be underestimated due to poor LVEF). On carvedilol 3.125 mg bid; increase dose when and if BP allows. Progressive renal dysfunction precludes use of Entresto, ACEI, ARB, or spironolactone at this time. Consider hydralazine + nitrate if BP allows. F/u BUN/Cr, electrolytes, daily weight, Is and Os. (now s/p cystoscopy and bilateral ureteral stent change). Code(s): I50.23 - ACUTE ON CHRONIC SYSTOLIC (CONGESTIVE) HEART FAILURE (2) Anemia Code(s): D64.9 - ANEMIA, UNSPECIFIED (3) Metastasis from malignant tumor of breast Assessment/Plan: f/u with hem/oncologist. Code(s): C79.9 - SECONDARY MALIGNANT NEOPLASM OF UNSPECIFIED SITE; C50.919 - MALIGNANT NEOPLASM OF UNSP SITE OF UNSPECIFIED FEMALE BREAST (4) Leukocytosis Code(s): D72.829 - ELEVATED WHITE BLOOD CELL COUNT, UNSPECIFIED Qualifiers: Leukocytosis type: unspecified Qualified Code(s): D72.829 - Elevated white blood cell count, unspecified (5) Renal dysfunction Assessment/Plan: s/p cystoscopy, ureteral stent Code(s): N28.9 - DISORDER OF KIDNEY AND URETER, UNSPECIFIED
[2019-10-06 09:53] LABS: ALBUMIN 2.5 g/dl (3.4-5.0); BILIRUBIN,TOTAL 0.9 mg/dL (0.2-1); BLOOD UREA NITROGEN 72.6 mg/dL (7-18); CALCIUM 9.4 mg/dL (8.5-10.1); CREATININE 2.4 mg/dL (0.55-1.3); POTASSIUM 4.4 mmol/L (3.5-5.1); TOT PROT 6.2 g/dl (6.4-8.2)
--- NOTE | 2019-10-06 11:24 | PN ---
Progress Note, Physician Chief Complaint: Pt alert; no chest apin or dyspnea. History of Present Illness: 73 y/o white woman with pmh of Breast cancer stage 3A w/ mets to the spine, peritoneal cavity, colon, and spine, currently off chemoRx with Navelbine, s/p right mastectomy, s/p radiation Rx; bilateral hydronephrosis, s/p fariha ureteral stents; "CHF", now admitted with c/o of weakness of 1-2 weeks duration and abdominal cramping of 1 day duration. She reports that 2 weeks ago she came off chemotherapy under Dr. Edward's supervision and had a CAT scan completed showing R>L effusion. She also reports that she has never needed a walker, but has started to use one since her weakness began. She has been on and off chemo for 2 years now. She reports ALCOCER when walking fast, and bilateral LE edema, but denies LOC, dizziness, head trauma, palpitations, vertigo, tinnitus, chest pain , shortness of breath, orthopnea, PND. - Current Medication List Current Medications: Active Medications Acetaminophen (Tylenol -) 650 mg PO Q6H PRN PRN Reason: Fever Or Pain 1-3 Last Admin: 10/05/19 14:00 Dose: 650 mg Albuterol/Ipratropium (Duoneb -) 1 amp NEB RTID [facility] Last Admin: 10/06/19 08:12 Dose: 1 amp Artificial Tears (Artificial Tears) 1 drop OU BID PRN PRN Reason: DRY EYES Calcitonin (Miacalcin [place] -) 1 spray NS DAILY [facility] Last Admin: 10/06/19 09:23 Dose: 1 spray Carvedilol (Coreg -) 3.125 mg PO BID [facility] Last Admin: 10/06/19 09:18 Dose: 3.125 mg Cholecalciferol (Vitamin D3 -) 3,000 unit PO DAILY [facility] Last Admin: 10/06/19 09:18 Dose: 3,000 unit Piperacillin Sod/Tazobactam (Sod 3.375 gm/ Dextrose) 50 mls @ 100 mls/hr IVPB Q8H-IV [facility]; Protocol Stop: 10/06/19 14:59 Last Admin: 10/06/19 09:05 Dose: 100 mls/hr Ondansetron HCl (Zofran -) 8 mg PO TID [facility] Last Admin: 10/06/19 06:22 Dose: 8 mg Pregabalin (Lyrica -) 75 mg PO BID [facility] Last Admin: 10/06/19 09:18 Dose: 75 mg Tramadol HCl (Ultram -) 50 mg PO Q6H PRN PRN Reason: PAIN LEVEL 6-10 Last Admin: 10/03/19 09:18 Dose: 50 mg - Objective Vital Signs: Vital Signs Temperature 97.6 F 10/06/19 06:47 Pulse Rate 89 10/06/19 06:47 Respiratory Rate 10/06/19 06:47 Blood Pressure 122/65 10/06/19 06:47 O2 Sat by Pulse Oximetry (%) 95 10/05/19 21:00 Constitutional: Yes: Calm Eyes: Yes: WNL HENT: Yes: WNL Neck: Yes: WNL Cardiovascular: Yes: Regular Rate and Rhythm, S1, S2 Respiratory: Yes: Regular Gastrointestinal: Yes: Soft, Other ...Rectal Exam: Yes: Deferred Genitourinary: No: Anuria Breast(s): Yes: WNL Musculoskeletal: Yes: Muscle Weakness Extremities: Yes: WNL Edema: No Integumentary: Yes: Other (colostomy site intact;) Neurological: Yes: Alert, Oriented, Weakness Psychiatric: Yes: Alert, Oriented Labs: CBC, BMP 10/06/19 08:20 10/06/19 08:20 INR, PTT INR 1.01 (0.83-1.09) 09/13/19 14:40 - ....Imaging Chest X-ray: Image Reviewed EKG: Image Reviewed Problem List - Problems (1) Acute on chronic systolic (congestive) heart failure Assessment/Plan: ECHO: Severely reduced LVEF (20%); minimal-mild aortic stenosis (may be underestimated due to poor LVEF). On carvedilol 3.125 mg bid; increase dose when and if BP allows. Progressive renal dysfunction precludes use of Entresto, ACEI, ARB, or spironolactone at this time. Consider hydralazine + nitrate if BP allows. F/u BUN/Cr, electrolytes, daily weight, Is and Os. (now s/p cystoscopy and bilateral ureteral stent change). Code(s): I50.23 - ACUTE ON CHRONIC SYSTOLIC (CONGESTIVE) HEART FAILURE (2) Anemia Code(s): D64.9 - ANEMIA, UNSPECIFIED (3) Metastasis from malignant tumor of breast Assessment/Plan: f/u with hem/oncologist. Code(s): C79.9 - SECONDARY MALIGNANT NEOPLASM OF UNSPECIFIED SITE; C50.919 - MALIGNANT NEOPLASM OF UNSP SITE OF UNSPECIFIED FEMALE BREAST (4) Leukocytosis Code(s): D72.829 - ELEVATED WHITE BLOOD CELL COUNT, UNSPECIFIED Qualifiers: Leukocytosis type: unspecified Qualified Code(s): D72.829 - Elevated white blood cell count, unspecified (5) Renal dysfunction Assessment/Plan: s/p cystoscopy, ureteral stent Code(s): N28.9 - DISORDER OF KIDNEY AND URETER, UNSPECIFIED
--- NOTE | 2019-10-06 13:14 | PN ---
Progress Note, Physician History of Present Illness: PULMONARY ALERT,FEELING BETTER,-COUGH,-SOB - Current Medication List Current Medications: Active Medications Acetaminophen (Tylenol -) 650 mg PO Q6H PRN PRN Reason: Fever Or Pain 1-3 Last Admin: 10/05/19 14:00 Dose: 650 mg Albuterol/Ipratropium (Duoneb -) 1 amp NEB RTID [facility] Last Admin: 10/06/19 08:12 Dose: 1 amp Artificial Tears (Artificial Tears) 1 drop OU BID PRN PRN Reason: DRY EYES Calcitonin (Miacalcin [employer] -) 1 spray NS DAILY [facility] Last Admin: 10/06/19 09:23 Dose: 1 spray Carvedilol (Coreg -) 3.125 mg PO BID [facility] Last Admin: 10/06/19 09:18 Dose: 3.125 mg Cholecalciferol (Vitamin D3 -) 3,000 unit PO DAILY [facility] Last Admin: 10/06/19 09:18 Dose: 3,000 unit Piperacillin Sod/Tazobactam (Sod 3.375 gm/ Dextrose) 50 mls @ 100 mls/hr IVPB Q8H-IV [facility]; Protocol Stop: 10/06/19 14:59 Last Admin: 10/06/19 09:05 Dose: 100 mls/hr Ondansetron HCl (Zofran -) 8 mg PO TID [facility] Last Admin: 10/06/19 06:22 Dose: 8 mg Pregabalin (Lyrica -) 75 mg PO BID [facility] Last Admin: 10/06/19 09:18 Dose: 75 mg Tramadol HCl (Ultram -) 50 mg PO Q6H PRN PRN Reason: PAIN LEVEL 6-10 Last Admin: 10/03/19 09:18 Dose: 50 mg - Objective Vital Signs: Vital Signs Temperature 97.6 F 10/06/19 10:00 Pulse Rate 88 10/06/19 10:00 Respiratory Rate 19 10/06/19 10:00 Blood Pressure 100/58 L 10/06/19 10:00 O2 Sat by Pulse Oximetry (%) 98 10/06/19 09:00 Constitutional: Yes: Well Nourished, Calm Eyes: Yes: WNL HENT: Yes: WNL Neck: Yes: WNL Cardiovascular: Yes: Regular Rate and Rhythm, S1, S2 Respiratory: Yes: Diminished Gastrointestinal: Yes: Normal Bowel Sounds, Soft Extremities: Yes: WNL Edema: No Labs: CBC, BMP 10/06/19 08:20 10/06/19 08:20 INR, PTT INR 1.01 (0.83-1.09) 09/13/19 14:40 Problem List - Problems (1) Acute on chronic renal failure Code(s): N17.9 - ACUTE KIDNEY FAILURE, UNSPECIFIED; N18.9 - CHRONIC KIDNEY DISEASE, UNSPECIFIED (2) Acute on chronic diastolic (congestive) heart failure Code(s): I50.33 - ACUTE ON CHRONIC DIASTOLIC (CONGESTIVE) HEART FAILURE (3) Hydronephrosis Code(s): N13.30 - UNSPECIFIED HYDRONEPHROSIS Qualifiers: Hydronephrosis type: unspecified Qualified Code(s): N13.30 - Unspecified hydronephrosis Assessment/Plan A/P Acute on Chronic Diastolic Heart Failure improving Acute on Chronic Renal Faiulre Bilateral Hydronephrosis Cellulitis Sepsis Metastatic Breast Ca HTN Hyperlipidemia Anemia - BD TX PRN - O2 as needed - inhaled bronchodilators - DVT prophylaxis - Awaiting SNF DR JETT Problem List - Problems (1) Pleural effusion Code(s): J90 - PLEURAL EFFUSION, NOT ELSEWHERE CLASSIFIED (2) Hypotension Code(s): I95.9 - HYPOTENSION, UNSPECIFIED Qualifiers: Hypotension type: other hypotension type Qualified Code(s): I95.89 - Other hypotension (3) Lymphedema Code(s): I89.0 - LYMPHEDEMA, NOT ELSEWHERE CLASSIFIED (4) Anemia Code(s): D64.9 - ANEMIA, UNSPECIFIED (5) 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 (6) Metastatic disease Code(s): C80.1 - MALIGNANT (PRIMARY) NEOPLASM, UNSPECIFIED
--- NOTE | 2019-10-06 13:58 | PN ---
Progress Note, Physician History of Present Illness: AWAKE IN BED SPIKED TEMP 102.7 WBC ELEVATED REPEAT C/S OBTAINED URINE C/S LF NO C/O FEVER/ CHILLS NO C/O ABDOMINAL PAIN - Current Medication List Current Medications: Active Medications Acetaminophen (Tylenol -) 650 mg PO Q6H PRN PRN Reason: Fever Or Pain 1-3 Last Admin: 10/05/19 14:00 Dose: 650 mg Albuterol/Ipratropium (Duoneb -) 1 amp NEB RTID [facility] Last Admin: 10/06/19 08:12 Dose: 1 amp Artificial Tears (Artificial Tears) 1 drop OU BID PRN PRN Reason: DRY EYES Calcitonin (Miacalcin [place] -) 1 spray NS DAILY [facility] Last Admin: 10/06/19 09:23 Dose: 1 spray Carvedilol (Coreg -) 3.125 mg PO BID [facility] Last Admin: 10/06/19 09:18 Dose: 3.125 mg Cholecalciferol (Vitamin D3 -) 3,000 unit PO DAILY [facility] Last Admin: 10/06/19 09:18 Dose: 3,000 unit Piperacillin Sod/Tazobactam (Sod 3.375 gm/ Dextrose) 50 mls @ 100 mls/hr IVPB Q8H-IV [facility]; Protocol Stop: 10/06/19 14:59 Last Admin: 10/06/19 09:05 Dose: 100 mls/hr Ondansetron HCl (Zofran -) 8 mg PO TID [facility] Last Admin: 10/06/19 06:22 Dose: 8 mg Pregabalin (Lyrica -) 75 mg PO BID [facility] Last Admin: 10/06/19 09:18 Dose: 75 mg Tramadol HCl (Ultram -) 50 mg PO Q6H PRN PRN Reason: PAIN LEVEL 6-10 Last Admin: 10/03/19 09:18 Dose: 50 mg - Objective Vital Signs: Vital Signs Temperature 97.6 F 10/06/19 10:00 Pulse Rate 88 10/06/19 10:00 Respiratory Rate 19 10/06/19 10:00 Blood Pressure 100/58 L 10/06/19 10:00 O2 Sat by Pulse Oximetry (%) 98 10/06/19 09:00 Constitutional: Yes: No Distress Cardiovascular: Yes: Regular Rate and Rhythm, S1, S2 Respiratory: Yes: CTA Bilaterally Gastrointestinal: Yes: Normal Bowel Sounds, Soft, Other (+ OSTOMY). No: Tenderness Genitourinary: Yes: Other (+ L PCN + ROMERO WITH CLOUDY URINE) Labs: CBC, BMP 10/06/19 08:20 10/06/19 08:20 INR, PTT INR 1.01 (0.83-1.09) 09/13/19 14:40 Assessment/Plan HIGH GRADE FEVER/ ELEVATED WBC ? SEPSIS SECONDARY TO SOURCE R UE CELLULITIS RESOLVED COLITIS RESOLVED METASTATIC CA AWAIT REPEAT C/S CONTINUE EMPIRIC ZOSYN
[2019-10-06 14:28] LABS: MAGNESIUM 1.6 mg/dL (1.8-2.4)
--- NOTE | 2019-10-06 16:13 | PN ---
Progress Note, Physician History of Present Illness: Pt seen and examined at bedside. She is awake and alert. SHe denies shortness of breath. - Current Medication List Current Medications: Active Medications Acetaminophen (Tylenol -) 650 mg PO Q6H PRN PRN Reason: Fever Or Pain 1-3 Last Admin: 10/05/19 14:00 Dose: 650 mg Albuterol/Ipratropium (Duoneb -) 1 amp NEB RTID [facility] Last Admin: 10/06/19 14:06 Dose: 1 amp Artificial Tears (Artificial Tears) 1 drop OU BID PRN PRN Reason: DRY EYES Calcitonin (Miacalcin [place] -) 1 spray NS DAILY [facility] Last Admin: 10/06/19 09:23 Dose: 1 spray Carvedilol (Coreg -) 3.125 mg PO BID [facility] Last Admin: 10/06/19 09:18 Dose: 3.125 mg Cholecalciferol (Vitamin D3 -) 3,000 unit PO DAILY [facility] Last Admin: 10/06/19 09:18 Dose: 3,000 unit Piperacillin Sod/Tazobactam (Sod 2.25 gm/ Dextrose) 50 mls @ 100 mls/hr IVPB Q8H-IV [facility]; Protocol Ondansetron HCl (Zofran -) 8 mg PO TID [facility] Last Admin: 10/06/19 14:13 Dose: 8 mg Pregabalin (Lyrica -) 75 mg PO BID [facility] Last Admin: 10/06/19 09:18 Dose: 75 mg Tramadol HCl (Ultram -) 50 mg PO Q6H PRN PRN Reason: PAIN LEVEL 6-10 Last Admin: 10/03/19 09:18 Dose: 50 mg - Objective Vital Signs: Vital Signs Temperature 97.6 F 10/06/19 10:00 Pulse Rate 88 10/06/19 10:00 Respiratory Rate 19 10/06/19 10:00 Blood Pressure 100/58 L 10/06/19 10:00 O2 Sat by Pulse Oximetry (%) 98 10/06/19 09:00 Constitutional: Yes: Calm Eyes: Yes: Conjunctiva Clear HENT: Yes: Atraumatic Cardiovascular: Yes: S1, S2 Gastrointestinal: Yes: Normal Bowel Sounds, Soft Genitourinary: Yes: Bahena Present, Other (left nephrostomy) Musculoskeletal: Yes: Muscle Weakness Edema: No Neurological: Yes: Oriented Psychiatric: Yes: Oriented Labs: CBC, BMP 10/06/19 08:20 10/06/19 08:20 INR, PTT INR 1.01 (0.83-1.09) 09/13/19 14:40 Problem List - Problems (1) Renal dysfunction Code(s): N28.9 - DISORDER OF KIDNEY AND URETER, UNSPECIFIED (2) Hydronephrosis Code(s): N13.30 - UNSPECIFIED HYDRONEPHROSIS Qualifiers: Hydronephrosis type: unspecified Qualified Code(s): N13.30 - Unspecified hydronephrosis Assessment/Plan Current Medications Generic Name Dose Route Start Last Admin Trade Name Freq PRN Reason Stop Dose Admin Acetaminophen 650 mg 09/23/19 13:24 10/05/19 14:00 Tylenol - PO 650 mg Q6H PRN Administration Fever Or Pain 1-3 Albuterol/Ipratropium 1 amp 09/23/19 14:00 10/06/19 14:06 Duoneb - NEB 1 amp RTID [facility] Administration Artificial Tears 1 drop 09/23/19 13:24 Artificial Tears OU BID PRN DRY EYES Calcitonin 1 spray 09/24/19 10:00 10/06/19 09:23 Miacalcin [place] - NS 1 spray DAILY [facility] Administration Carvedilol 3.125 mg 09/23/19 22:00 10/06/19 09:18 Coreg - PO 3.125 mg BID [facility] Administration Cholecalciferol 3,000 unit 09/24/19 10:00 10/06/19 09:18 Vitamin D3 - PO 3,000 unit DAILY [facility] Administration Piperacillin Sod/Tazobactam 50 mls @ 100 mls/hr 10/06/19 18:00 Sod 2.25 gm/ Dextrose IVPB Q8H-IV [facility] Protocol Ondansetron HCl 8 mg 10/05/19 06:00 10/06/19 14:13 Zofran - PO 8 mg TID [facility] Administration Pregabalin 75 mg 10/04/19 10:00 10/06/19 09:18 Lyrica - PO 75 mg BID [facility] Administration Tramadol HCl 50 mg 10/02/19 12:29 10/03/19 09:18 Ultram - PO 50 mg Q6H PRN Administration PAIN LEVEL 6-10 Impression 1. CKD 2. leukopenia 3. obstructive uropathy with bilateral hydro 4. breast cancer with mets 5. HTN 6. hyperlipidemia 7. anemia 8. ALEKSANDER 9. CHF Plan - replace mag - monitor renal function - monitor urine output - no signs of failure - renal dose meds - of budget manager rises further tomorrow, consider alternate agent to zosyn - pt is making urine - avoid nsaids Dr Land
[2019-10-06] MEDS ORDERED: PIPERACILLIN/TAZOBACTAM 2.25 GM VIAL IVPB ONE (17:37)
--- NOTE | 2019-10-06 17:38 | PN ---
Physical Exam: SUBJECTIVE: Patient seen and examined. Pt reports feeling tired. castellanos draining cloudy urine. Nephrostomy bag becoming cloudy as well. Denies f/c/n/v/d/sob OBJECTIVE: Vital Signs Period Temp Pulse Resp BP Sys/Avila Pulse Ox Last 24 Hr 97.6 F-98.7 F 88-97 16-20 100-122/58-67 95-98 GENERAL: The patient is awake, alert. Pt is much improved today. EYES: PERRL, extraocular movements intact, sclera anicteric, conjunctiva clear. ENT: oropharynx clear without exudates, moist mucous membranes. NECK: Trachea midline, full range of motion, supple. LUNGS: Breath sounds equal, clear to auscultation bilaterally, no wheezes, no crackles, HEART: Regular rate and rhythm, S1, S2 without murmur, rub or gallop. ABDOMEN: Soft, nontender, nondistended, normoactive bowel sounds, no guarding, Colostomy bag on the right- draining semi-solid stool. Left nephrostomy tube in place- draining cloudy urine. Castellanos placed back- draining cloudy urine- urine improving EXTREMITIES: 2+ pulses, warm, well-perfused, no edema. RUE erythema improved, swelling improved NEUROLOGICAL: Cranial nerves II through XII grossly intact. Normal speech PSYCH: Normal mood, normal affect. Laboratory Results - last 24 hr CBC,CMP WBC 11.1 K/mm3 (4.0-10.0) H 10/06/19 08:20 RBC 2.78 M/mm3 (3.60-5.2) L 10/06/19 08:20 Hgb 9.2 GM/dL (10.7-15.3) L 10/06/19 08:20 Hct 27.1 % (32.4-45.2) L 10/06/19 08:20 MCV 97.6 fl (80-96) H 10/06/19 08:20 MCH 33.3 pg (25.7-33.7) 10/06/19 08:20 MCHC 34.1 g/dl (32.0-36.0) 10/06/19 08:20 RDW 16.4 % (11.6-15.6) H 10/06/19 08:20 Plt Count 209 K/MM3 (134-434) 10/06/19 08:20 MPV 8.6 fl (7.5-11.1) 10/06/19 08:20 Absolute Neuts (auto) 8.9 K/mm3 (1.5-8.0) H 09/28/19 07:05 Neutrophils % 81.8 % (42.8-82.8) 09/28/19 07:05 Neutrophils % (Manual) 77.0 % (42.8-82.8) 09/21/19 06:40 Band Neutrophils % 10.0 % 09/21/19 06:40 Lymphocytes % 7.2 % (8-40) L 09/28/19 07:05 Lymphocytes % (Manual) 0.0 % (8-40) L 09/21/19 06:40 Monocytes % 6.7 % (3.8-10.2) 09/28/19 07:05 Monocytes % (Manual) 9 % (3.8-10.2) 09/21/19 06:40 Eosinophils % 3.9 % (0-4.5) 09/28/19 07:05 Eosinophils % (Manual) 2.0 % (0-4.5) 09/21/19 06:40 Basophils % 0.4 % (0-2.0) 09/28/19 07:05 Basophils % (Manual) 0.0 % (0-2.0) 09/21/19 06:40 Myelocytes % (Man) 0 % (0-2) 09/21/19 06:40 Promyelocytes % (Man) 0 % (0-2) 09/21/19 06:40 Blast Cells % (Manual) 0 % (0-0) 09/21/19 06:40 Nucleated RBC % 0 % (0-0) 09/28/19 07:05 Metamyelocytes 0 % (0-2) 09/21/19 06:40 Hypochromia 0 09/21/19 06:40 Platelet Estimate Normal 09/21/19 06:40 Polychromasia 0 09/21/19 06:40 Poikilocytosis 1+ 09/21/19 06:40 Anisocytosis 1+ 09/21/19 06:40 Microcytosis 1+ 09/21/19 06:40 Macrocytosis 0 09/21/19 06:40 Spherocytes 1+ 09/21/19 06:40 Target Cells Few 09/15/19 13:50 Ovalocytes 1+ 09/21/19 06:40 Acanthocytes (Spur) 1+ 09/21/19 06:40 ESR 55 mm/hr (0-30) H 09/21/19 06:40 Retic Count 1.39 % (0.5-1.5) 09/22/19 07:34 Sodium 134 mmol/L (136-145) L 10/06/19 08:20 Potassium 4.4 mmol/L (3.5-5.1) 10/06/19 08:20 Chloride 100 mmol/L (98-107) 10/06/19 08:20 Carbon Dioxide 26 mmol/L (21-32) 10/06/19 08:20 Anion Gap 9 MMOL/L (8-16) 10/06/19 08:20 BUN 72.6 mg/dL (7-18) H 10/06/19 08:20 Creatinine 2.4 mg/dL (0.55-1.3) H 10/06/19 08:20 Est GFR (CKD-EPI)AfAm 22.46 10/06/19 08:20 Est GFR (CKD-EPI)NonAf 19.38 10/06/19 08:20 POC Glucometer 116 UNITS (80-120) 09/16/19 12:06 Random Glucose 99 mg/dL (74-106) 10/06/19 08:20 Serum Osmolality 301 mosm/kg (278-305) 09/19/19 06:50 Lactic Acid 1.0 mmol/L (0.4-2.0) 09/13/19 18:33 Calcium 9.4 mg/dL (8.5-10.1) 10/06/19 08:20 Phosphorus 4.8 mg/dL (2.5-4.9) 10/03/19 07:45 Magnesium 1.6 mg/dL (1.8-2.4) L 10/06/19 08:20 Iron 44 ug/dL (50-175) L 09/14/19 07:00 TIBC 248 ug/dL (250-450) L 09/14/19 07:00 Iron Saturation 17 % (17.5-39) L 09/14/19 07:00 Unsaturated IBC 204 ug/dL (200-275) 09/14/19 07:00 Ferritin 363.3 ng/ml (8-388) 09/16/19 07:00 Total Bilirubin 0.9 mg/dL (0.2-1) 10/06/19 08:20 GGT 121 U/L (5-85) H 09/30/19 07:50 AST 48 U/L (15-37) H 10/06/19 08:20 ALT 15 U/L (13-61) 10/06/19 08:20 Alkaline Phosphatase 127 U/L (45-117) H 10/06/19 08:20 Creatine Kinase 73 U/L (26-192) 09/13/19 14:10 Troponin I Cancelled 09/13/19 14:40 C-Reactive Protein 4.7 MG/DL (0.00-0.3) H 09/21/19 06:40 B-Natriuretic Peptide 5940.9 pg/ml (5-125) H 09/19/19 06:50 Total Protein 6.2 g/dl (6.4-8.2) L 10/06/19 08:20 Albumin 2.5 g/dl (3.4-5.0) L 10/06/19 08:20 Vitamin B12 591 pg/ml (193-986) 09/14/19 07:00 Serum Folate 29 ng/mL (3.1-17.5) H 09/14/19 07:00 TSH 3.02 uIU/ml (0.358-3.74) 09/16/19 07:00 Active Medications Generic Name Dose Route Start Last Admin Trade Name Freq PRN Reason Stop Dose Admin Acetaminophen 650 mg 09/23/19 13:24 10/05/19 14:00 Tylenol - PO 650 mg Q6H PRN Administration Fever Or Pain 1-3 Albuterol/Ipratropium 1 amp 09/23/19 14:00 10/06/19 14:06 Duoneb - NEB 1 amp RTID TRICIA Administration Artificial Tears 1 drop 09/23/19 13:24 Artificial Tears OU BID PRN DRY EYES Calcitonin 1 spray 09/24/19 10:00 10/06/19 09:23 Miacalcin [place] - NS 1 spray DAILY TRICIA Administration Carvedilol 3.125 mg 09/23/19 22:00 10/06/19 09:18 Coreg - PO 3.125 mg BID TRICIA Administration Cholecalciferol 3,000 unit 09/24/19 10:00 10/06/19 09:18 Vitamin D3 - PO 3,000 unit DAILY TRICIA Administration Piperacillin Sod/Tazobactam 50 mls @ 100 mls/hr 10/06/19 18:00 Sod 2.25 gm/ Dextrose IVPB Q8H-IV TRICIA Protocol Ondansetron HCl 8 mg 10/05/19 06:00 10/06/19 14:13 Zofran - PO 8 mg TID TRICIA Administration Pregabalin 75 mg 10/04/19 10:00 10/06/19 09:18 Lyrica - PO 75 mg BID TRICIA Administration Tramadol HCl 50 mg 10/02/19 12:29 10/03/19 09:18 Ultram - PO 50 mg Q6H PRN Administration PAIN LEVEL 6-10 ASSESSMENT/PLAN: 73 y/o F, pmh of Breast cancer stage 3A w/ mets to the spine, peritoneal cavity , colon, spine, s/p right mastectomy, s/p radiation, b/l ureteral stents w/ b/l hydro, mild b/l pleural effusion, presents c/o of weakness of 1-2 weeks duration and abdominal cramping of 1 day duration #ALEKSANDER, elevated Cre b/l hydronephrosis s/p ureteral stents Pt accepted to [facility]- d/c planning in process #Febrile 102.1F likely 2/2 to castellanos UTI Noew resolved Urine remains cloudy, nephrostomy bag remains cloudy Abx- Zosyn Q8H CXR neg UCx pending BCx pending Discussed with Dr. Joiner, pt will need to be monitored overnight for one more day of abx before d/c #Elevated ALP likely 2/2 to metastatic process of bones vs biliary disease #New Systolic CHF Progressive renal dysfunction precludes use of Entresto, ACEI, ARB, or spironolactone at this time. Consider hydralazine + nitrate after pt's renal function as stabilized #Macrocytic Anemia ? sec to CTx vs chronic disease vs marrow infiltration by tumor process. Hb improved Ferrous sulfate #Right pelvic mass US bladder- cystic mass like density right hemipelvis- irregular mass like density if its anterior wall. #Abdominal cramping/Generalized spasm likely 2/2 to dehydration 2/2 Failure to thrive vs Navelbine adverse effect now resolved Flexeril prn Diet regular IVF 1/2 NS #Decreased mood Will service counselor and consider antidepressants if needed #DVTppx hep sq TID FEN monitor lytes Regular diet 1/2 NS at 75 Dispo: cont Abx, going to [facility], likely d/c tomorrow Visit type - Emergency Visit Emergency Visit: Yes ED Registration Date: 09/17/19 Care time: The patient presented to the Emergency Department on the above date and was hospitalized for further evaluation of their emergent condition. - New Patient This patient is new to me today: Yes Date on this admission: 10/06/19 - Critical Care Critical Care patient: No - Discharge Referral Referred to [facility] No ATTENDING PHYSICIAN STATEMENT I saw and evaluated the patient. I reviewed the resident's note and discussed the case with the resident. I agree with the resident's findings and plan as documented. SUBJECTIVE: OBJECTIVE: ASSESSMENT AND PLAN:
[2019-10-06] MEDS: PIPERACILLIN/TAZOB 2.25 GM 2.25 GM in DEXTROSE 5%-WATER - 50 ML IVPB SCH (18:05)
[2019-10-07] MEDS ORDERED: DEXTROSE 5%-WATER - 50 ML IVPB ONE ×2 (00:54→09:46)
[2019-10-07] MEDS ORDERED: PIPERACILLIN/TAZOBACTAM 2.25 GM VIAL IVPB ONE ×2 (00:54→09:46)
[2019-10-07] MEDS: PIPERACILLIN/TAZOB 2.25 GM 2.25 GM in DEXTROSE 5%-WATER - 50 ML IVPB SCH ×2 (01:13→09:52)
[2019-10-07] MEDS: ONDANSETRON 8 MG TABLET (FP) PO SCH ×3 (05:41→23:00)
[2019-10-07] MEDS: ALBUTEROL SO4 2.5/IPRATROPIUM 0.5 INH SOL 3 ML VIAL.NEB. NEB SCH ×3 (07:34→20:05)
[2019-10-07 07:41] LABS: HEMATOCRIT 27.4 % (32.4-45.2); HEMOGLOBIN 9.3 GM/dL (10.7-15.3); MCH 33.3 pg (25.7-33.7); MCHC 33.9 g/dl (32.0-36.0); MEAN CELL VOLUME 98.3 fl (80-96); MEAN PLT VOLUME 8.8 fl (7.5-11.1); PLATELET COUNT 250 K/MM3 (134-434); RBC 2.79 M/mm3 (3.60-5.2); RDW 16.1 % (11.6-15.6); WHITE BLOOD COUNT 11.1 K/mm3 (4.0-10.0)
[2019-10-07 08:15] LABS: ALBUMIN 2.4 g/dl (3.4-5.0); BILIRUBIN,TOTAL 0.5 mg/dL (0.2-1); BLOOD UREA NITROGEN 81.4 mg/dL (7-18); CALCIUM 9.4 mg/dL (8.5-10.1); CREATININE 2.9 mg/dL (0.55-1.3); MAGNESIUM 1.9 mg/dL (1.8-2.4); PHOSPHOROUS 5.3 mg/dL (2.5-4.9); POTASSIUM 3.8 mmol/L (3.5-5.1); TOT PROT 6.6 g/dl (6.4-8.2)
[2019-10-07] MEDS: CHOLECALCIFEROL (VIT D3) 1,000 UNIT (25 MCG) TABLET PO SCH (09:53)
[2019-10-07] MEDS: PREGABALIN 75 MG CAPSULE PO SCH ×2 (09:55→21:13)
[2019-10-07] MEDS: CARVEDILOL 3.125 MG TABLET (FP) PO SCH ×2 (09:55→21:13)
[2019-10-07] MEDS: CALCITONIN - SALMON SYNTHETIC 200 UNITS/SPRAY NS SCH (10:07)
--- NOTE | 2019-10-07 14:44 | PN ---
Progress Note (short form) - Note Progress Note: patient with UTI, Klebsiella with multiresistance she has not been able to void please maintain her castellanos until her infection is cleared. Problem List - Problems (1) Hydronephrosis Code(s): N13.30 - UNSPECIFIED HYDRONEPHROSIS Qualifiers: Hydronephrosis type: unspecified Qualified Code(s): N13.30 - Unspecified hydronephrosis
--- NOTE | 2019-10-07 15:10 | PN ---
Progress Note, Physician History of Present Illness: Pt seen and examined at bedside. She is awake and alert. She denies shortness of breath. - Current Medication List Current Medications: Active Medications Acetaminophen (Tylenol -) 650 mg PO Q6H PRN PRN Reason: Fever Or Pain 1-3 Last Admin: 10/05/19 14:00 Dose: 650 mg Albuterol/Ipratropium (Duoneb -) 1 amp NEB RTID [facility] Last Admin: 10/07/19 14:36 Dose: Not Given Artificial Tears (Artificial Tears) 1 drop OU BID PRN PRN Reason: DRY EYES Calcitonin (Miacalcin [place] -) 1 spray NS DAILY [facility] Last Admin: 10/07/19 10:07 Dose: 1 spray Carvedilol (Coreg -) 3.125 mg PO BID [facility] Last Admin: 10/07/19 09:55 Dose: 3.125 mg Cholecalciferol (Vitamin D3 -) 3,000 unit PO DAILY [facility] Last Admin: 10/07/19 09:53 Dose: 3,000 unit Piperacillin Sod/Tazobactam (Sod 2.25 gm/ Dextrose) 50 mls @ 100 mls/hr IVPB Q8H-IV TRICIA; Protocol Last Admin: 10/07/19 09:52 Dose: 100 mls/hr Sodium Chloride (Normal Saline -) 1,000 mls @ 50 mls/hr IV ASDIR [facility] Stop: 10/08/19 15:06 Ondansetron HCl (Zofran -) 8 mg PO TID [facility] Last Admin: 10/07/19 14:11 Dose: 8 mg Pregabalin (Lyrica -) 75 mg PO BID [facility] Last Admin: 10/07/19 09:55 Dose: 75 mg Tramadol HCl (Ultram -) 50 mg PO Q6H PRN PRN Reason: PAIN LEVEL 6-10 Last Admin: 10/03/19 09:18 Dose: 50 mg - Objective Vital Signs: Vital Signs Temperature 98.2 F 10/07/19 10:00 Pulse Rate 92 H 10/07/19 10:00 Respiratory Rate 18 10/07/19 10:00 Blood Pressure 121/67 10/07/19 10:00 O2 Sat by Pulse Oximetry (%) 95 10/07/19 09:00 Constitutional: Yes: Calm Eyes: Yes: Conjunctiva Clear HENT: Yes: Atraumatic Cardiovascular: Yes: S1, S2 Respiratory: Yes: CTA Bilaterally Gastrointestinal: Yes: Soft Genitourinary: Yes: [place] Present, Other (left nephrostomy) Musculoskeletal: Yes: WNL Edema: No Neurological: Yes: Oriented Psychiatric: Yes: Oriented Labs: CBC, BMP 10/07/19 07:03 10/07/19 07:03 INR, PTT INR 1.01 (0.83-1.09) 09/13/19 14:40 Problem List - Problems (1) Renal dysfunction Code(s): N28.9 - DISORDER OF KIDNEY AND URETER, UNSPECIFIED (2) Hydronephrosis Code(s): N13.30 - UNSPECIFIED HYDRONEPHROSIS Qualifiers: Hydronephrosis type: unspecified Qualified Code(s): N13.30 - Unspecified hydronephrosis Assessment/Plan Current Medications Generic Name Dose Route Start Last Admin Trade Name Freq PRN Reason Stop Dose Admin Acetaminophen 650 mg 09/23/19 13:24 10/05/19 14:00 Tylenol - PO 650 mg Q6H PRN Administration Fever Or Pain 1-3 Albuterol/Ipratropium 1 amp 09/23/19 14:00 10/07/19 14:36 Duoneb - NEB Not Given RTID TRICIA Artificial Tears 1 drop 09/23/19 13:24 Artificial Tears OU BID PRN DRY EYES Calcitonin 1 spray 09/24/19 10:00 10/07/19 10:07 Miacalcin [place] - NS 1 spray DAILY TRICIA Administration Carvedilol 3.125 mg 09/23/19 22:00 10/07/19 09:55 Coreg - PO 3.125 mg BID TRICIA Administration Cholecalciferol 3,000 unit 09/24/19 10:00 10/07/19 09:53 Vitamin D3 - PO 3,000 unit DAILY TRICIA Administration Piperacillin Sod/Tazobactam 50 mls @ 100 mls/hr 10/06/19 18:00 10/07/19 09:52 Sod 2.25 gm/ Dextrose IVPB 100 mls/hr Q8H-IV TRICIA Administration Protocol Sodium Chloride 1,000 mls @ 50 mls/hr 10/07/19 15:15 Normal Saline - IV 10/08/19 15:06 ASDIR TRICIA Ondansetron HCl 8 mg 10/05/19 06:00 10/07/19 14:11 Zofran - PO 8 mg TID TRICIA Administration Pregabalin 75 mg 10/04/19 10:00 10/07/19 09:55 Lyrica - PO 75 mg BID TRICIA Administration Tramadol HCl 50 mg 10/02/19 12:29 10/03/19 09:18 Ultram - PO 50 mg Q6H PRN Administration PAIN LEVEL 6-10 Impression 1. CKD 2. leukopenia 3. obstructive uropathy with bilateral hydro 4. breast cancer with mets 5. HTN 6. hyperlipidemia 7. anemia 8. ALEKSANDER 9. 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
[2019-10-07] MEDS ORDERED: SODIUM CHLORIDE 1,000 ML IV SCH (15:15)
--- NOTE | 2019-10-07 15:55 | PN ---
Progress Note, Physician History of Present Illness: AWAKE IN BED TEMPS DOWN WBC SL ELEVATED NO C/O FEVER/ CHILLS NO C/O ABDOMINAL PAIN URINE CRE - Current Medication List Current Medications: Active Medications Acetaminophen (Tylenol -) 650 mg PO Q6H PRN PRN Reason: Fever Or Pain 1-3 Last Admin: 10/05/19 14:00 Dose: 650 mg Albuterol/Ipratropium (Duoneb -) 1 amp NEB RTID [facility] Last Admin: 10/07/19 14:36 Dose: Not Given Artificial Tears (Artificial Tears) 1 drop OU BID PRN PRN Reason: DRY EYES Calcitonin (Miacalcin [place] -) 1 spray NS DAILY [facility] Last Admin: 10/07/19 10:07 Dose: 1 spray Carvedilol (Coreg -) 3.125 mg PO BID [facility] Last Admin: 10/07/19 09:55 Dose: 3.125 mg Cholecalciferol (Vitamin D3 -) 3,000 unit PO DAILY [facility] Last Admin: 10/07/19 09:53 Dose: 3,000 unit Piperacillin Sod/Tazobactam (Sod 2.25 gm/ Dextrose) 50 mls @ 100 mls/hr IVPB Q8H-IV TRICIA; Protocol Last Admin: 10/07/19 09:52 Dose: 100 mls/hr Sodium Chloride (Normal Saline -) 1,000 mls @ 50 mls/hr IV ASDIR [facility] Stop: 10/08/19 15:06 Ondansetron HCl (Zofran -) 8 mg PO TID [facility] Last Admin: 10/07/19 14:11 Dose: 8 mg Pregabalin (Lyrica -) 75 mg PO BID [facility] Last Admin: 10/07/19 09:55 Dose: 75 mg Tramadol HCl (Ultram -) 50 mg PO Q6H PRN PRN Reason: PAIN LEVEL 6-10 Last Admin: 10/03/19 09:18 Dose: 50 mg - Objective Vital Signs: Vital Signs Temperature 98 F 10/07/19 15:08 Pulse Rate 81 10/07/19 15:08 Respiratory Rate 18 10/07/19 15:08 Blood Pressure 111/59 L 10/07/19 15:08 O2 Sat by Pulse Oximetry (%) 95 10/07/19 09:00 Constitutional: Yes: No Distress Eyes: Yes: Conjunctiva Clear Cardiovascular: Yes: Regular Rate and Rhythm, S1, S2 Respiratory: Yes: Diminished Gastrointestinal: Yes: Normal Bowel Sounds, Soft. No: Tenderness Edema: Yes (L UE LYMPHEDEMA) Labs: CBC, BMP 10/07/19 07:03 10/07/19 07:03 INR, PTT INR 1.01 (0.83-1.09) 09/13/19 14:40 Assessment/Plan S/P HIGH GRADE FEVER/ ELEVATED WBC + URINE C/S LIKELY COLONIZER R UE CELLULITIS RESOLVED COLITIS RESOLVED METASTATIC CA D/C ANTIBIOTICS OBSERVE OFF
--- NOTE | 2019-10-07 16:55 | DS ---
Physical Exam: SUBJECTIVE: Patient seen and examined. Pt reports feeling tired. castellanos draining cloudy urine, improving. Nephrostomy bag becoming cloudy, improving as well. No overnight events. No fevers overnight. Denies f/c/n/v/d/sob OBJECTIVE: Vital Signs Period Temp Pulse Resp BP Sys/Avila Pulse Ox Last 24 Hr 98 F-99.9 F 81-102 18-20 103-121/59-67 95-98 PHYSICAL EXAM GENERAL: The patient is awake, alert. Pt is much improved today. EYES: PERRL, extraocular movements intact, sclera anicteric, conjunctiva clear. ENT: oropharynx clear without exudates, moist mucous membranes. NECK: Trachea midline, full range of motion, supple. LUNGS: Breath sounds equal, clear to auscultation bilaterally, no wheezes, no crackles, HEART: Regular rate and rhythm, S1, S2 without murmur, rub or gallop. ABDOMEN: Soft, nontender, nondistended, normoactive bowel sounds, no guarding, Colostomy bag on the right- draining semi-solid stool. Left nephrostomy tube in place- draining cloudy urine. Castellanos placed back- draining cloudy urine- urine improving EXTREMITIES: 2+ pulses, warm, well-perfused, no edema. RUE erythema improved, swelling improved NEUROLOGICAL: Cranial nerves II through XII grossly intact. Normal speech PSYCH: Normal mood, normal affect. LABS Laboratory Results - last 24 hr 10/07/19 10/07/19 07:03 07:03 WBC 11.1 H RBC 2.79 L Hgb 9.3 L Hct 27.4 L MCV 98.3 H MCH 33.3 MCHC 33.9 RDW 16.1 H Plt Count 250 MPV 8.8 Sodium 135 L Potassium 3.8 Chloride 96 L Carbon Dioxide 30 Anion Gap 9 BUN 81.4 H Creatinine 2.9 H Est GFR (CKD-EPI)AfAm 17.87 Est GFR (CKD-EPI)NonAf 15.41 Random Glucose 118 H Calcium 9.4 Phosphorus 5.3 H Magnesium 1.9 Total Bilirubin 0.5 AST 51 H ALT 16 Alkaline Phosphatase 141 H Total Protein 6.6 Albumin 2.4 L Current Medications Acetaminophen (Tylenol -) 650 mg PO Q6H PRN PRN Reason: Fever Or Pain 1-3 Last Admin: 10/05/19 14:00 Dose: 650 mg Albuterol/Ipratropium (Duoneb -) 1 amp NEB RTID [facility] Last Admin: 10/07/19 20:05 Dose: 1 amp Artificial Tears (Artificial Tears) 1 drop OU BID PRN PRN Reason: DRY EYES Calcitonin (Miacalcin [place] -) 1 spray NS DAILY [facility] Last Admin: 10/07/19 10:07 Dose: 1 spray Carvedilol (Coreg -) 3.125 mg PO BID [facility] Last Admin: 10/07/19 21:13 Dose: 3.125 mg Cholecalciferol (Vitamin D3 -) 3,000 unit PO DAILY [facility] Last Admin: 10/07/19 09:53 Dose: 3,000 unit Sodium Chloride (Normal Saline -) 1,000 mls @ 50 mls/hr IV ASDIR [facility] Stop: 10/08/19 15:06 Last Admin: 10/07/19 19:30 Dose: 50 mls/hr Ondansetron HCl (Zofran -) 8 mg PO TID [facility] Last Admin: 10/07/19 14:11 Dose: 8 mg Pregabalin (Lyrica -) 75 mg PO BID [facility] Last Admin: 10/07/19 21:13 Dose: 75 mg Tramadol HCl (Ultram -) 50 mg PO Q6H PRN PRN Reason: PAIN LEVEL 6-10 Last Admin: 10/03/19 09:18 Dose: 50 mg Microbiology 10/05/19 16:25 Blood - Peripheral Venous Blood Culture - Preliminary NO GROWTH OBTAINED AFTER 48 HOURS, INCUBATION TO CONTINUE FOR 3 DAYS. 10/05/19 16:25 Blood - Peripheral Venous Blood Culture - Preliminary NO GROWTH OBTAINED AFTER 48 HOURS, INCUBATION TO CONTINUE FOR 3 DAYS. 10/04/19 18:00 Urine - Urine Castellanos Urine Culture - Preliminary Klebsiella Pneumoniae - Esbl 10/05/19 15:25 Urine - Urine Castellanos Urine Culture - Preliminary Lactose Fermenting Neg Bacilli 10/05/19 15:25 Urine - Urine Nephrostomy Tube Left Urine Culture - Final NO GROWTH OBTAINED 09/27/19 16:47 Stool Clostridioides difficile Antigen - Final 09/27/19 16:47 Stool Clostridioides difficile Toxin Assay - Final 09/24/19 18:12 Urine - Urine Nephrostomy Tube Left Urine Culture - Final NO GROWTH OBTAINED 09/19/19 14:00 Rectal Swab Salmonella/Shigella Culture - Final NO GROWTH OF SALMONELLA OR SHIGELLA SPECIES OBTAINED 09/19/19 14:00 Rectal Swab Campylobacter Culture - Final NO GROWTH OF CAMPYLOBACTER SPECIES OBTAINED 09/19/19 14:00 Rectal Swab Yersinia Culture - Final NO GROWTH OF YERSINIA SPECIES OBTAINED 09/19/19 14:00 Rectal Swab Vibrio Culture - Final NO GROWTH OF VIBRIO SPECIES OBTAINED 09/19/19 14:00 Rectal Swab Escherichia coli 0157 Culture - Final NO GROWTH OF E COLI 0157 OBTAINED 09/19/19 14:00 Stool Clostridioides difficile Antigen - Final 09/19/19 14:00 Stool Clostridioides difficile Toxin Assay - Final 09/19/19 14:00 Colon Fluid Gram Stain - Final 09/18/19 11:30 Urine - Urine Clean Catch Urine Culture - Final NO GROWTH OBTAINED 09/13/19 14:45 Blood - Peripheral Venous Blood Culture - Final NO GROWTH AFTER 5 DAYS INCUBATION 09/13/19 14:45 Blood - Peripheral Venous Blood Culture - Final NO GROWTH AFTER 5 DAYS INCUBATION 09/13/19 14:50 Urine - Urine Clean Catch Urine Culture - Final NO GROWTH OBTAINED HOSPITAL COURSE: Date of Admission:09/17/19 73 y/o F, pmh of Breast cancer stage 3A w/ mets to the spine, peritoneal cavity , colon, spine, s/p right mastectomy, s/p radiation, b/l ureteral stents w/ b/l hydro, mild b/l pleural effusion, presents c/o of weakness of 1-2 weeks duration and abdominal cramping of 1 day duration . Pt was treated with cyclobenzaprine for the abdominal spasms. She was currently off navelbine chemo by Dr. Edward, consult was placed and heme/onc was investigating alternative treatments as their treatments have been not as effective thus far. While pt remained in the hospital, her US revealed that her chronic right and left stented ureters were become more dilated, hydronephrosis was worsening. Her Cre and BUN were also rising. Nephro and Urology was consulted. Dr. Mariano Chance replaced her right stent and removed her left completely. She was given a a nephrostomy tube/bag on the left side and castellanos was inserted. Pt's kidney functions began to improve significantly and her castellanos was removed. She began to retain fluids so we had to re insert her castellanos. After discussion with Urology, we planned to discharge the pt home on her nephrostomy bag and her castellanos. Her castellanos was to be removed by Dr. Josue after discharge on her f/ u appt in 3-4 days. The nephrostomy bag was to be removed in 3 months by Dann Adams. While she was here, she also developed significant Lymphedema of her right arm which became cellulitic and was started on Keflex then switched to zosyn. She was accepted to [facility] for discharge, however, she spiked a fever overnight and was watched On Abx for 24hrs. Her micro came back positive for ESBL resistant to everything except gentamicin and tigecyline. After discussion with ID, they recommended pt be watched off abx and sent to [facility]. Pt was discharged home on no abx. She was discharged home on new meds, albuterol /ipratropium, carvedilol 3.125, lyrica and tramadol. EKG NSR, possible LAE ECHO- EF 20%, which is significantly decreased from prior ECHO in 2018 which was EF normal US bladder- cystic mass like density right hemipelvis- irregular mass like density if its anterior wall. CXR: Large heart, prominent knob, prominent hilar markings, some atelectic changes. Right jugular lne and tip in the SVC Sacrum x rays- marrow nfiltration and metastatic disease CT a/p (09/10)- increased right and developing left pleural effusion, no mets to chest, small amoutn of ascites, severe b/l hydronephrosis w/ ureteral stents, slight increase in size of large right pelvic cystic mass. No acute path in the abdomen or pelvis. MRI: no acute pathology, Left lateral mass of C1, base of C1- pathological bone marrow replacement C-Spine MRI- metastatic deposits multiple- especially in the left lateral C1 mass. L-spine MRI- metastatic disease- interval chronic compression at L4 Spiral CT: Thickening of the ascending and transverse colon, r/o colitis, diverticulosis coli in sigmoid, no diverticulitis, b/l double J ureteral stents , slight increased in b/l hydro, small GB within partially distended GB, small amount of free fluid/ascites in the upper abdomen, previously visualized large cystic masslike density in the right hemipelvis is again seen without interval change, multiple compression fx in lumbar and included lower thoracic spine with mild retropulsion of L4 superior/posterior endplate resulting in mild compromise of the spinal canal. Trace pericardial effusion. Increased right pleural effusion Rt>Lt EMG: axonal sensimotor neuropathy Lasix renal scan- b/l renal outlet obstruction. Left renal function 59%, right renal function 41% Dr. Flores discussed comfort care with pt, she understood and would like comfort care/ DNR/DNI. Date of Discharge: 10/07/19 Minutes to complete discharge: 40 Discharge Summary Problems reviewed: Yes Reason For Visit: PELVIC PAIN/DEHYDRATION Condition: Good - Instructions Diet, Activity, Other Instructions: You were admitted to the hospital for abdominal cramping and blood in your urine. While you were in the hospital, we evaluated you with lab work, blood work, imaging including an ultrasound and CAT scan of your abdomen and kidneys. We found that your symptoms may have been caused by your cancer. We treated you with medications and your symptoms improved. While in the hospital, your kidney function began to worsen, and we had to do a procedure to help your kidneys function better. The procedure and medications helped your kidneys improve. The procedure included attaching a nephrostomy bag to your left side. Please follow the below instructions: You will be going to a alf facility with the nephrostomy bag. Please follow the instruction for the nephrostomy bag: You will need to undergo daily dressing changes for the nephrostomy bag. IF your nephrostomy bag becomes unclean, you can order new bags by calling the phone number listed on the nephrostomy bag. You will need to follow up with Dr. Josue in 3-4 days to determine further management of the nephrostomy bag You will need to also follow up with Dr. Nicole in 2-3 months to determine the need to have the nephrostomy tube removed. You also will be going to [facility] with a Castellanos bag, please follow the instructions for the Castellanos; You will need to keep the area around the castellanos clean Empty the Castellanos bag as needed. Please follow up with Dr. Stein within 3-4 days to have the Castellanos bag removed Medications We also added some medications to your regimen, including medications to improve your breathing and your heart rate. Please take the following medications as instructed: START Albuterol/Ipratropium nebulizer treatments as needed for shortness of breath. START Carvedilol 3.125 mg twice a day by mouth START Lyrica 75 mg Twice a day for pain or cramping in your legs Please take the rest of your medications as prescribed. Follow Up Please follow up with Dr. Josue within 3-4 days to have your castellanos removed Please follow up with Dr. Dann Nicole within 2-3 months to have your nephrostomy tube removed Please follow up with Dr. Edward within 1 week to determine treatment Please follow up with Dr. Jonathon Abrams within 1 week to monitor your kidney function Please follow up with your medical records technician or the one we have provided, Dr. Benítez within 1 week Please follow up with your primary care physician within 1 week or the primary care physician we have provided for you. Return to the emergency room, if you experience worsening of your symptoms, abdominal pain, back pain, chest pain or any worsening of your condition. Referrals: Dann Nicole MD [Staff Physician] - 1 Week Feliciano Benítez MD [Staff Physician] - 1 Week Mariano Stein MD [Staff Physician] - 1 Week Hitesh Edward MD [Staff Physician] - 1 Week Jonathon Land MD [Staff Physician] - 1 Week Disposition: RETIREMENT FACILITY - Home Medications Comprehensive Discharge Medication List: Ambulatory Orders Calcium Citrate/Magnesium/D3 [Calcium Citrate Chewable Wafer] 2 tab PO DAILY 08/12 Cholecalciferol (Vitamin D3) [Vitamin D3] 3,000 unit PO DAILY 05/08/17 Vitamin B Complex 1 each PO DAILY 05/08/17 Ferrous Sulfate [Feosol] 325 mg PO DAILY 01/15/18 Magnesium Citrate 800 mg PO DAILY 01/15/18 Cyclobenzaprine HCl 10 mg PO Q8H 09/13/19 Ondansetron HCl [Zofran] 4 mg PO Q8H 09/13/19 Tramadol HCl 50 mg PO Q8H 09/13/19 Albuterol 2.5/Ipratropium 0.5 [Duoneb -] 1 amp NEB RTID amp 10/07/19 Carvedilol [Coreg -] 3.125 mg PO BID tablet 10/07/19 Pregabalin [Lyrica -] 75 mg PO BID #60 capsule MDD 150 10/07/19 This patient is new to me today: Yes Date on this admission: 10/07/19 Emergency Visit: Yes ED Registration Date: 09/17/19 Care time: The patient presented to the Emergency Department on the above date and was hospitalized for further evaluation of their emergent condition. Critical Care patient: No - Discharge Referral Referred to [facility] Med [facility] No ATTENDING PHYSICIAN STATEMENT I saw and evaluated the patient. I reviewed the resident's note and discussed the case with the resident. I agree with the resident's findings and plan as documented. SUBJECTIVE: OBJECTIVE: ASSESSMENT AND PLAN:
--- NOTE | 2019-10-07 17:51 | PN ---
Progress Note, Physician Chief Complaint: Pt denies SOB or chest pain. History of Present Illness: 73 y/o white woman with pmh of Breast cancer stage 3A w/ mets to the spine, peritoneal cavity, colon, and spine, currently off chemoRx with Navelbine, s/p right mastectomy, s/p radiation Rx; bilateral hydronephrosis, s/p fariha ureteral stents; "CHF", now admitted with c/o of weakness of 1-2 weeks duration and abdominal cramping of 1 day duration. She reports that 2 weeks ago she came off chemotherapy under Dr. Edward's supervision and had a CAT scan completed showing R>L effusion. She also reports that she has never needed a walker, but has started to use one since her weakness began. She has been on and off chemo for 2 years now. She reports ALCOCER when walking fast, and bilateral LE edema, but denies LOC, dizziness, head trauma, palpitations, vertigo, tinnitus, chest pain , shortness of breath, orthopnea, PND. - Current Medication List Current Medications: Active Medications Acetaminophen (Tylenol -) 650 mg PO Q6H PRN PRN Reason: Fever Or Pain 1-3 Last Admin: 10/05/19 14:00 Dose: 650 mg Albuterol/Ipratropium (Duoneb -) 1 amp NEB RTID [facility] Last Admin: 10/07/19 14:36 Dose: Not Given Artificial Tears (Artificial Tears) 1 drop OU BID PRN PRN Reason: DRY EYES Calcitonin (Miacalcin [place] -) 1 spray NS DAILY [facility] Last Admin: 10/07/19 10:07 Dose: 1 spray Carvedilol (Coreg -) 3.125 mg PO BID [facility] Last Admin: 10/07/19 09:55 Dose: 3.125 mg Cholecalciferol (Vitamin D3 -) 3,000 unit PO DAILY [facility] Last Admin: 10/07/19 09:53 Dose: 3,000 unit Sodium Chloride (Normal Saline -) 1,000 mls @ 50 mls/hr IV ASDIR [facility] Stop: 10/08/19 15:06 Ondansetron HCl (Zofran -) 8 mg PO TID [facility] Last Admin: 10/07/19 14:11 Dose: 8 mg Pregabalin (Lyrica -) 75 mg PO BID [facility] Last Admin: 10/07/19 09:55 Dose: 75 mg Tramadol HCl (Ultram -) 50 mg PO Q6H PRN PRN Reason: PAIN LEVEL 6-10 Last Admin: 10/03/19 09:18 Dose: 50 mg - Objective Vital Signs: Vital Signs Temperature 98 F 10/07/19 15:08 Pulse Rate 81 10/07/19 15:08 Respiratory Rate 18 10/07/19 15:08 Blood Pressure 111/59 L 10/07/19 15:08 O2 Sat by Pulse Oximetry (%) 95 10/07/19 09:00 Labs: CBC, BMP 10/07/19 07:03 10/07/19 07:03 INR, PTT INR 1.01 (0.83-1.09) 09/13/19 14:40 - ....Imaging Chest X-ray: Image Reviewed Problem List - Problems (1) Anemia Code(s): D64.9 - ANEMIA, UNSPECIFIED (2) Metastasis from malignant tumor of breast Assessment/Plan: f/u with hem/oncologist. Code(s): C79.9 - SECONDARY MALIGNANT NEOPLASM OF UNSPECIFIED SITE; C50.919 - MALIGNANT NEOPLASM OF UNSP SITE OF UNSPECIFIED FEMALE BREAST (3) Renal dysfunction Assessment/Plan: s/p cystoscopy, ureteral stent Code(s): N28.9 - DISORDER OF KIDNEY AND URETER, UNSPECIFIED
--- NOTE | 2019-10-07 17:54 | PN ---
Progress Note, Physician Chief Complaint: Pt alert; no abdominal pain or chest discomfort. History of Present Illness: 73 y/o white woman with pmh of Breast cancer stage 3A w/ mets to the spine, peritoneal cavity, colon, and spine, currently off chemoRx with Navelbine, s/p right mastectomy, s/p radiation Rx; bilateral hydronephrosis, s/p fariha ureteral stents; "CHF", now admitted with c/o of weakness of 1-2 weeks duration and abdominal cramping of 1 day duration. She reports that 2 weeks ago she came off chemotherapy under Dr. Edward's supervision and had a CAT scan completed showing R>L effusion. She also reports that she has never needed a walker, but has started to use one since her weakness began. She has been on and off chemo for 2 years now. She reports ALCOCER when walking fast, and bilateral LE edema, but denies LOC, dizziness, head trauma, palpitations, vertigo, tinnitus, chest pain , shortness of breath, orthopnea, PND. - Current Medication List Current Medications: Active Medications Acetaminophen (Tylenol -) 650 mg PO Q6H PRN PRN Reason: Fever Or Pain 1-3 Last Admin: 10/05/19 14:00 Dose: 650 mg Albuterol/Ipratropium (Duoneb -) 1 amp NEB RTID [facility] Last Admin: 10/07/19 14:36 Dose: Not Given Artificial Tears (Artificial Tears) 1 drop OU BID PRN PRN Reason: DRY EYES Calcitonin (Miacalcin [place] -) 1 spray NS DAILY [facility] Last Admin: 10/07/19 10:07 Dose: 1 spray Carvedilol (Coreg -) 3.125 mg PO BID [facility] Last Admin: 10/07/19 09:55 Dose: 3.125 mg Cholecalciferol (Vitamin D3 -) 3,000 unit PO DAILY [facility] Last Admin: 10/07/19 09:53 Dose: 3,000 unit Sodium Chloride (Normal Saline -) 1,000 mls @ 50 mls/hr IV ASDIR [facility] Stop: 10/08/19 15:06 Ondansetron HCl (Zofran -) 8 mg PO TID [facility] Last Admin: 10/07/19 14:11 Dose: 8 mg Pregabalin (Lyrica -) 75 mg PO BID [facility] Last Admin: 10/07/19 09:55 Dose: 75 mg Tramadol HCl (Ultram -) 50 mg PO Q6H PRN PRN Reason: PAIN LEVEL 6-10 Last Admin: 10/03/19 09:18 Dose: 50 mg - Objective Vital Signs: Vital Signs Temperature 98 F 10/07/19 15:08 Pulse Rate 81 10/07/19 15:08 Respiratory Rate 18 10/07/19 15:08 Blood Pressure 111/59 L 10/07/19 15:08 O2 Sat by Pulse Oximetry (%) 95 10/07/19 09:00 Constitutional: Yes: No Distress Eyes: Yes: WNL HENT: Yes: WNL Neck: Yes: WNL Cardiovascular: Yes: S1, S2 Respiratory: Yes: Regular Gastrointestinal: Yes: Soft, Other (colostomy bag) ...Rectal Exam: Yes: Deferred Genitourinary: No: Anuria Breast(s): Yes: WNL Musculoskeletal: Yes: Muscle Weakness Extremities: Yes: Cool Edema: No Peripheral Pulses WNL: Yes Neurological: Yes: Alert, Oriented, Weakness Labs: CBC, BMP 10/07/19 07:03 10/07/19 07:03 INR, PTT INR 1.01 (0.83-1.09) 09/13/19 14:40 - ....Imaging Chest X-ray: Image Reviewed EKG: Image Reviewed Problem List - Problems (1) Acute on chronic systolic (congestive) heart failure Assessment/Plan: ECHO: Severely reduced LVEF (20%); minimal-mild aortic stenosis (may be underestimated due to poor LVEF). On carvedilol 3.125 mg bid; increase dose when and if BP allows. Progressive renal dysfunction precludes use of Entresto, ACEI, ARB, or spironolactone at this time. Consider hydralazine + nitrate if BP allows. F/u BUN/Cr, electrolytes, daily weight, Is and Os. (now s/p cystoscopy and bilateral ureteral stent change). Code(s): I50.23 - ACUTE ON CHRONIC SYSTOLIC (CONGESTIVE) HEART FAILURE (2) Anemia Code(s): D64.9 - ANEMIA, UNSPECIFIED (3) Metastasis from malignant tumor of breast Assessment/Plan: f/u with hem/oncologist. Code(s): C79.9 - SECONDARY MALIGNANT NEOPLASM OF UNSPECIFIED SITE; C50.919 - MALIGNANT NEOPLASM OF UNSP SITE OF UNSPECIFIED FEMALE BREAST (4) Renal dysfunction Assessment/Plan: s/p cystoscopy, ureteral stent Code(s): N28.9 - DISORDER OF KIDNEY AND URETER, UNSPECIFIED
--- NOTE | 2019-10-07 18:27 | PN ---
Teaching Attending Note Name of Resident: Toñito Quintana ATTENDING PHYSICIAN STATEMENT I saw and evaluated the patient. I reviewed the resident's note and discussed the case with the resident. I agree with the resident's findings and plan as documented. SUBJECTIVE: Feels comfortable, No abdominal pain/diarrhea/nausea/vomiting. No complaints. OBJECTIVE: Afebrile, Hemodynamically Stable. Last Vital Signs Temp Pulse Resp BP Pulse Ox 98 F 81 18 111/59 L 95 10/07/19 15:08 10/07/19 15:08 10/07/19 15:08 10/07/19 15:08 10/07/19 09:00 Heart - S1, S2, RRR Lungs - decreased air entry at bases. R side portacath. Abdomen - Soft, non-tender. Mild distension. R sided -ostomy working, liquid stool. No hematochezia. Bowel Sounds normal. - Urine via castellanos clear - no further blood. L nephrostomy - urine clear. Extremities - mild edema, no calf tenderness. RUE erythema/edema improved. Neuro - AAO x 3. Tone/Power normal all extremities. Laboratory Results - last 24 hr 10/07/19 10/07/19 07:03 07:03 WBC 11.1 H RBC 2.79 L Hgb 9.3 L Hct 27.4 L MCV 98.3 H MCH 33.3 MCHC 33.9 RDW 16.1 H Plt Count 250 MPV 8.8 Sodium 135 L Potassium 3.8 Chloride 96 L Carbon Dioxide 30 Anion Gap 9 BUN 81.4 H Creatinine 2.9 H Est GFR (CKD-EPI)AfAm 17.87 Est GFR (CKD-EPI)NonAf 15.41 Random Glucose 118 H Calcium 9.4 Phosphorus 5.3 H Magnesium 1.9 Total Bilirubin 0.5 AST 51 H ALT 16 Alkaline Phosphatase 141 H Total Protein 6.6 Albumin 2.4 L Current Medications Generic Name Dose Route Start Last Admin Trade Name Freq PRN Reason Stop Dose Admin Acetaminophen 650 mg 09/23/19 13:24 10/05/19 14:00 Tylenol - PO 650 mg Q6H PRN Administration Fever Or Pain 1-3 Albuterol/Ipratropium 1 amp 09/23/19 14:00 10/07/19 14:36 Duoneb - NEB Not Given RTID TRICIA Artificial Tears 1 drop 09/23/19 13:24 Artificial Tears OU BID PRN DRY EYES Calcitonin 1 spray 09/24/19 10:00 10/07/19 10:07 Miacalcin [place] - NS 1 spray DAILY TRICIA Administration Carvedilol 3.125 mg 09/23/19 22:00 10/07/19 09:55 Coreg - PO 3.125 mg BID TRICIA Administration Cholecalciferol 3,000 unit 09/24/19 10:00 10/07/19 09:53 Vitamin D3 - PO 3,000 unit DAILY TRICIA Administration Sodium Chloride 1,000 mls @ 50 mls/hr 10/07/19 15:15 Normal Saline - IV 10/08/19 15:06 ASDIR TRICIA Ondansetron HCl 8 mg 10/05/19 06:00 10/07/19 14:11 Zofran - PO 8 mg TID TRICIA Administration Pregabalin 75 mg 10/04/19 10:00 10/07/19 09:55 Lyrica - PO 75 mg BID TRICIA Administration Tramadol HCl 50 mg 10/02/19 12:29 10/03/19 09:18 Ultram - PO 50 mg Q6H PRN Administration PAIN LEVEL 6-10 Discharge Medications Medication Instructions Recorded Calcium Citrate/Magnesium/D3 2 tab PO DAILY 05/08/17 [Calcium Citrate Chewable Wafer] Cholecalciferol (Vitamin D3) 3,000 unit PO DAILY 05/08/17 [Vitamin D3] Vitamin B Complex 1 each PO DAILY 05/08/17 Ferrous Sulfate [Feosol] 325 mg PO DAILY 01/15/18 Magnesium Citrate 800 mg PO DAILY 01/15/18 Cyclobenzaprine HCl 10 mg PO Q8H 09/13/19 Ondansetron HCl [Zofran] 4 mg PO Q8H 09/13/19 Tramadol HCl 50 mg PO Q8H 09/13/19 Albuterol 2.5/Ipratropium 0.5 1 amp NEB RTID amp 10/07/19 [Duoneb -] Carvedilol [Coreg -] 3.125 mg PO BID tablet 10/07/19 Pregabalin [Lyrica -] 75 mg PO BID #60 capsule MDD 150 10/07/19 ASSESSMENT/PLAN: 73 year old female with history of Metastatic Breast Ca (bone, peritoneal cavity , stomach), s/p mastectomy, s/p small bowel resection/R colectomy/end ileostomy due to mets, last CTx 09/01/19, bilateral ureteral stents due to bilateral hydronephrosis due to compressive metastatic ca, presents with generalized weakness and upper body/torso spasm episode, lasting minutes, resolved spontaneously. She has history of spasm, on flexeril PRN. 1. Generalized weakness/Muscular Spasm - resolved Possible side-effects of chemotherapy and tumor burden/chronic disease. Poor appetite - nutrition as per diet recommendations. No further spasm episodes. Flexeril PRN. 2. ALEKSANDER - some improvement in Creat, likley CKD 3 now. NM Renal Scan positive for bilateral renal outlet obstruction Hx of bilateral hydronephrosis s/p ureteral stents, now with ALEKSANDER and worsening creatinine POD 14 s/p Cystoscopy with R ureteral stent exchange and L ureteral stent removal by Dr. Josue. Hematuria via castellanos improved. POD 13 s/p L Nephrostomy by IR - clear urine draining, no further blood per nephrostomy. Nephrology and Urology to continue following as out-patient. Failed TOV, will discharge with Castellanos 3. Cellulitis RUE - resolved Leukocytosis resolved No DVT on US Duplex Received course of Zosyn/Vanco as per ID - transitioned and completed oral Keflex course 4. Chronic Systolic HF, etiology unclear ?sec to Chemotherapy EF 20%, bibasal effusions, mild LE edema. Coreg started Patient off IV fluids and Lasix. Cardiology to continue following as out-patient. 5. Metastatic Breast Ca (Bone - C/L spine, ribs, femoral shafts, sacrum, peritoneal cavity), s/p mastectomy, last CTx 09/01/[address] Chest ?metastatic, no respiratory distress. s/p recent CTx s/p Neupogen Oncology following - unlikley candidate for further chemotherapy. DNR/DNI Will likely transition to comfort measures if clinical status deteriorates. 6. Compression Fracture L4 ?pathologic with significant stenosis L 3/4, L 4/5. Asymptomatic currently. Tramadol prn. Lyrica held by Hematology, reason unclear. Will monitor patient comfort/pain level. Consider Neurosurgery eval as out-patient. 7. Acute on Chronic Anemia ? sec to CTx vs chronic disease vs marrow infiltration by tumor process + Acute Blood Loss ( source). Iron levels borderline. On Ferrous Sulfate. B12/Folate wnl. Hematuria resolved. H/H stable 10.2/30.5 s/p 1 unit PRBCs. 8. Hyperkalemia sec to ALEKSANDER - resolved s/p Lokelma. 9. Urine Cx positive for ESBL - likely colonizer as per ID. Antibiotics discontinued. Castellanos changed. Etiology of fever unclear. For out-patient observation off abx therapy. Resident discussed with Dr. Joiner of ID. Medically stable for transfer to SNF. Prognosis poor. DNR/DNI. SNF as likely bridge to Hospice care given underlying progressive disease with no further treatment to be given by Oncology.
--- NOTE | 2019-10-07 19:54 | PN ---
Progress Note (short form) - Note Progress Note: Patient seen and examined Upset about lack of communication about discharge Upset about medical status Has agreed to go to [facility] for rehab - realizing difficulties doing rehab with multiple tubes Last Vital Signs Temp Pulse Resp BP Pulse Ox 98 F 81 18 111/59 L 95 10/07/19 15:08 10/07/19 15:08 10/07/19 15:08 10/07/19 15:08 10/07/19 09:00 HEENT: PAT, EOM Intact Oropharynx: No thrush, No mucositis Cor: RSR, No murmurs, No gallops Lungs: Clear to P&A Abd: Soft, Normal bowel sounds, No organomegaly, mild distension; functioning ileostomy Ext:No significant edema Skin: No rashes, Integument intact CBC, BMP 10/07/19 07:03 10/07/19 07:03 Current Medications Generic Name Dose Route Start Last Admin Trade Name Freq PRN Reason Stop Dose Admin Acetaminophen 650 mg 09/23/19 13:24 10/05/19 14:00 Tylenol - PO 650 mg Q6H PRN Administration Fever Or Pain 1-3 Albuterol/Ipratropium 1 amp 09/23/19 14:00 10/07/19 14:36 Duoneb - NEB Not Given RTID TRICIA Artificial Tears 1 drop 09/23/19 13:24 Artificial Tears OU BID PRN DRY EYES Calcitonin 1 spray 09/24/19 10:00 10/07/19 10:07 Miacalcin [place] - NS 1 spray DAILY TRICIA Administration Carvedilol 3.125 mg 09/23/19 22:00 10/07/19 09:55 Coreg - PO 3.125 mg BID TRICIA Administration Cholecalciferol 3,000 unit 09/24/19 10:00 10/07/19 09:53 Vitamin D3 - PO 3,000 unit DAILY TRICIA Administration Sodium Chloride 1,000 mls @ 50 mls/hr 10/07/19 15:15 Normal Saline - IV 10/08/19 15:06 ASDIR TRICIA Ondansetron HCl 8 mg 10/05/19 06:00 10/07/19 14:11 Zofran - PO 8 mg TID TRICIA Administration Pregabalin 75 mg 10/04/19 10:00 10/07/19 09:55 Lyrica - PO 75 mg BID TRICIA Administration Tramadol HCl 50 mg 10/02/19 12:29 10/03/19 09:18 Ultram - PO 50 mg Q6H PRN Administration PAIN LEVEL 6-10 Microbiology 10/05/19 16:25 Blood - Peripheral Venous Blood Culture - Preliminary NO GROWTH OBTAINED AFTER 48 HOURS, INCUBATION TO CONTINUE FOR 3 DAYS. 10/05/19 16:25 Blood - Peripheral Venous Blood Culture - Preliminary NO GROWTH OBTAINED AFTER 48 HOURS, INCUBATION TO CONTINUE FOR 3 DAYS. 10/04/19 18:00 Urine - Urine Castellanos Urine Culture - Preliminary Klebsiella Pneumoniae - Esbl 10/05/19 15:25 Urine - Urine Castellanos Urine Culture - Preliminary Lactose Fermenting Neg Bacilli 10/05/19 15:25 Urine - Urine Nephrostomy Tube Left Urine Culture - Final NO GROWTH OBTAINED 09/27/19 16:47 Stool Clostridioides difficile Antigen - Final 09/27/19 16:47 Stool Clostridioides difficile Toxin Assay - Final 09/24/19 18:12 Urine - Urine Nephrostomy Tube Left Urine Culture - Final NO GROWTH OBTAINED 09/19/19 14:00 Rectal Swab Salmonella/Shigella Culture - Final NO GROWTH OF SALMONELLA OR SHIGELLA SPECIES OBTAINED 09/19/19 14:00 Rectal Swab Campylobacter Culture - Final NO GROWTH OF CAMPYLOBACTER SPECIES OBTAINED 09/19/19 14:00 Rectal Swab Yersinia Culture - Final NO GROWTH OF YERSINIA SPECIES OBTAINED 09/19/19 14:00 Rectal Swab Vibrio Culture - Final NO GROWTH OF VIBRIO SPECIES OBTAINED 09/19/19 14:00 Rectal Swab Escherichia coli 0157 Culture - Final NO GROWTH OF E COLI 0157 OBTAINED 09/19/19 14:00 Stool Clostridioides difficile Antigen - Final 09/19/19 14:00 Stool Clostridioides difficile Toxin Assay - Final 09/19/19 14:00 Colon Fluid Gram Stain - Final 09/18/19 11:30 Urine - Urine Clean Catch Urine Culture - Final NO GROWTH OBTAINED 09/13/19 14:45 Blood - Peripheral Venous Blood Culture - Final NO GROWTH AFTER 5 DAYS INCUBATION 09/13/19 14:45 Blood - Peripheral Venous Blood Culture - Final NO GROWTH AFTER 5 DAYS INCUBATION 09/13/19 14:50 Urine - Urine Clean Catch Urine Culture - Final NO GROWTH OBTAINED Impression: Metastatic breast ca Rehab planned Nephrostomy castellanos catheter Urine with klebsiella ESBL monitor for infection Monitor kidney status fo/u for castellanos removal Nephrostomy removal per /I.R.. renal input Chemotherapy in future pending status. CKD/ALEKSANDER
[2019-10-08] MEDS: ONDANSETRON 8 MG TABLET (FP) PO SCH ×3 (05:44→22:06)
[2019-10-08] MEDS: ALBUTEROL SO4 2.5/IPRATROPIUM 0.5 INH SOL 3 ML VIAL.NEB. NEB SCH ×3 (08:49→20:42)
[2019-10-08] MEDS: PREGABALIN 75 MG CAPSULE PO SCH ×2 (10:06→22:07)
[2019-10-08] MEDS: CHOLECALCIFEROL (VIT D3) 1,000 UNIT (25 MCG) TABLET PO SCH (10:07)
[2019-10-08] MEDS: CARVEDILOL 3.125 MG TABLET (FP) PO SCH ×2 (10:07→22:06)
[2019-10-08] MEDS: CALCITONIN - SALMON SYNTHETIC 200 UNITS/SPRAY NS SCH (10:10)
[2019-10-08 12:20] LABS: BLOOD UREA NITROGEN 89.6 mg/dL (7-18); CREATININE 2.8 mg/dL (0.55-1.3)
--- NOTE | 2019-10-08 12:55 | PN ---
Progress Note, Physician History of Present Illness: AWAKE IN BED TEMPS DOWN NO RECURRENT FEVER WBC SL ELEVATED NO C/O FEVER/ CHILLS NO C/O ABDOMINAL PAIN + BLACK STOOL IN OSTOMY - Current Medication List Current Medications: Active Medications Acetaminophen (Tylenol -) 650 mg PO Q6H PRN PRN Reason: Fever Or Pain 1-3 Last Admin: 10/05/19 14:00 Dose: 650 mg Albuterol/Ipratropium (Duoneb -) 1 amp NEB RTID [facility] Last Admin: 10/08/19 08:49 Dose: 1 amp Artificial Tears (Artificial Tears) 1 drop OU BID PRN PRN Reason: DRY EYES Calcitonin (Miacalcin [place] -) 1 spray NS DAILY [facility] Last Admin: 10/08/19 10:10 Dose: 1 spray Carvedilol (Coreg -) 3.125 mg PO BID [facility] Last Admin: 10/08/19 10:07 Dose: 3.125 mg Cholecalciferol (Vitamin D3 -) 3,000 unit PO DAILY [facility] Last Admin: 10/08/19 10:07 Dose: 3,000 unit Sodium Chloride (Normal Saline -) 1,000 mls @ 50 mls/hr IV ASDIR [facility] Stop: 10/08/19 15:06 Last Admin: 10/07/19 19:30 Dose: 50 mls/hr Ondansetron HCl (Zofran -) 8 mg PO TID [facility] Last Admin: 10/08/19 05:44 Dose: 8 mg Pregabalin (Lyrica -) 75 mg PO BID [facility] Last Admin: 10/08/19 10:06 Dose: 75 mg Tramadol HCl (Ultram -) 50 mg PO Q6H PRN PRN Reason: PAIN LEVEL 6-10 Last Admin: 10/03/19 09:18 Dose: 50 mg - Objective Vital Signs: Vital Signs Temperature 98 F 10/08/19 09:19 Pulse Rate 87 10/08/19 09:19 Respiratory Rate 18 10/08/19 09:19 Blood Pressure 120/73 10/08/19 09:19 O2 Sat by Pulse Oximetry (%) 100 10/08/19 09:00 Constitutional: Yes: No Distress Cardiovascular: Yes: Regular Rate and Rhythm, S1, S2 Respiratory: Yes: CTA Bilaterally Gastrointestinal: Yes: Other (BLACK STOOL IN OSTOMY) Genitourinary: Yes: Other (CLEAR URINE IN L PCN COLLECTION BAG; SEDIMENT IN ROMERO BAG) Extremities: Yes: Other (R UE LYMPHEDEMA) Labs: CBC, BMP 10/07/19 07:03 10/08/19 11:15 INR, PTT INR 1.01 (0.83-1.09) 09/13/19 14:40 Assessment/Plan S/P HIGH GRADE FEVER/ ELEVATED WBC + URINE C/S LIKELY COLONIZATION R UE CELLULITIS RESOLVED COLITIS RESOLVED METASTATIC CA OBSERVE OFF ANTIBIOTICS CONTACT PRECAUTIONS
--- NOTE | 2019-10-08 13:14 | PN ---
Progress Note, Physician History of Present Illness: Pt seen and examined at bedside. She is awake and alert. She denies shortness of breath. - Current Medication List Current Medications: Active Medications Acetaminophen (Tylenol -) 650 mg PO Q6H PRN PRN Reason: Fever Or Pain 1-3 Last Admin: 10/05/19 14:00 Dose: 650 mg Albuterol/Ipratropium (Duoneb -) 1 amp NEB RTID [facility] Last Admin: 10/08/19 08:49 Dose: 1 amp Artificial Tears (Artificial Tears) 1 drop OU BID PRN PRN Reason: DRY EYES Calcitonin (Miacalcin [place] -) 1 spray NS DAILY [facility] Last Admin: 10/08/19 10:10 Dose: 1 spray Carvedilol (Coreg -) 3.125 mg PO BID [facility] Last Admin: 10/08/19 10:07 Dose: 3.125 mg Cholecalciferol (Vitamin D3 -) 3,000 unit PO DAILY [facility] Last Admin: 10/08/19 10:07 Dose: 3,000 unit Sodium Chloride (Normal Saline -) 1,000 mls @ 50 mls/hr IV ASDIR [facility] Stop: 10/08/19 15:06 Last Admin: 10/07/19 19:30 Dose: 50 mls/hr Ondansetron HCl (Zofran -) 8 mg PO TID [facility] Last Admin: 10/08/19 13:11 Dose: 8 mg Pregabalin (Lyrica -) 75 mg PO BID [facility] Last Admin: 10/08/19 10:06 Dose: 75 mg Tramadol HCl (Ultram -) 50 mg PO Q6H PRN PRN Reason: PAIN LEVEL 6-10 Last Admin: 10/03/19 09:18 Dose: 50 mg - Objective Vital Signs: Vital Signs Temperature 98 F 10/08/19 09:19 Pulse Rate 87 10/08/19 09:19 Respiratory Rate 18 10/08/19 09:19 Blood Pressure 120/73 10/08/19 09:19 O2 Sat by Pulse Oximetry (%) 100 10/08/19 09:00 Constitutional: Yes: Calm Eyes: Yes: Conjunctiva Clear HENT: Yes: Atraumatic Cardiovascular: Yes: S1, S2 Respiratory: Yes: CTA Bilaterally Gastrointestinal: Yes: Normal Bowel Sounds, Soft Genitourinary: Yes: [place] Present, Other (left nephrostomy) Musculoskeletal: Yes: WNL Edema: No Neurological: Yes: Oriented Psychiatric: Yes: Oriented Labs: CBC, BMP 10/07/19 07:03 10/08/19 11:15 INR, PTT INR 1.01 (0.83-1.09) 09/13/19 14:40 Problem List - Problems (1) Renal dysfunction Code(s): N28.9 - DISORDER OF KIDNEY AND URETER, UNSPECIFIED (2) Hydronephrosis Code(s): N13.30 - UNSPECIFIED HYDRONEPHROSIS Qualifiers: Hydronephrosis type: unspecified Qualified Code(s): N13.30 - Unspecified hydronephrosis Assessment/Plan Current Medications Generic Name Dose Route Start Last Admin Trade Name Freq PRN Reason Stop Dose Admin Acetaminophen 650 mg 09/23/19 13:24 10/05/19 14:00 Tylenol - PO 650 mg Q6H PRN Administration Fever Or Pain 1-3 Albuterol/Ipratropium 1 amp 09/23/19 14:00 10/08/19 08:49 Duoneb - NEB 1 amp RTID TRICIA Administration Artificial Tears 1 drop 09/23/19 13:24 Artificial Tears OU BID PRN DRY EYES Calcitonin 1 spray 09/24/19 10:00 10/08/19 10:10 Miacalcin [place] - NS 1 spray DAILY TRICIA Administration Carvedilol 3.125 mg 09/23/19 22:00 10/08/19 10:07 Coreg - PO 3.125 mg BID TRICIA Administration Cholecalciferol 3,000 unit 09/24/19 10:00 10/08/19 10:07 Vitamin D3 - PO 3,000 unit DAILY TRICIA Administration Sodium Chloride 1,000 mls @ 50 mls/hr 10/07/19 15:15 10/07/19 19:30 Normal Saline - IV 10/08/19 15:06 50 mls/hr ASDIR TRICIA Administration Ondansetron HCl 8 mg 10/05/19 06:00 10/08/19 13:11 Zofran - PO 8 mg TID TRICIA Administration Pregabalin 75 mg 10/04/19 10:00 10/08/19 10:06 Lyrica - PO 75 mg BID TRICIA Administration Tramadol HCl 50 mg 10/02/19 12:29 10/03/19 09:18 Ultram - PO 50 mg Q6H PRN Administration PAIN LEVEL 6-10 Impression 1. CKD 2. leukopenia 3. obstructive uropathy with bilateral hydro 4. breast cancer with mets 5. HTN 6. hyperlipidemia 7. anemia 8. ALEKSANDER 9. CHF Plan - cont to monitor renal function - grey washer is improving - repeat labs in am - pt now off of zosyn - pt is making urine - avoid nsaids Dr Land
--- NOTE | 2019-10-08 14:07 | PN ---
Progress Note, Physician History of Present Illness: 73 y/o F, pmh of Breast cancer stage 3A w/ mets to the spine, peritoneal cavity , colon, spine currently off chem with Navelbine, s/p right mastectomy, s/p radiation, b/l ureteral stents w/ b/l hydro, mild b/l pleural effusion, initially presented c/o of weakness of 1-2 weeks duration and abdominal cramping of 1 day duration. She reports that 2 weeks ago she came off chemo under Dr. Edward's supervision and had a CAT scan completed showing R>L effusion. She also reports that she has never needed a walker but began to use one since her weakness started. She has been on and off chemo for 2 years now. She reports ALCOCER walking fast and bilateral LE edema, but denies LOC, dizziness, head trauma, palpitations, vertigo, tinnitis, chest pain, shortness of breath, orthopnea, PND. - Current Medication List Current Medications: Active Medications Acetaminophen (Tylenol -) 650 mg PO Q6H PRN PRN Reason: Fever Or Pain 1-3 Last Admin: 10/05/19 14:00 Dose: 650 mg Albuterol/Ipratropium (Duoneb -) 1 amp NEB RTID [facility] Last Admin: 10/08/19 08:49 Dose: 1 amp Artificial Tears (Artificial Tears) 1 drop OU BID PRN PRN Reason: DRY EYES Calcitonin (Miacalcin [place] -) 1 spray NS DAILY [facility] Last Admin: 10/08/19 10:10 Dose: 1 spray Carvedilol (Coreg -) 3.125 mg PO BID [facility] Last Admin: 10/08/19 10:07 Dose: 3.125 mg Cholecalciferol (Vitamin D3 -) 3,000 unit PO DAILY [facility] Last Admin: 10/08/19 10:07 Dose: 3,000 unit Sodium Chloride (Normal Saline -) 1,000 mls @ 50 mls/hr IV ASDIR [facility] Stop: 10/08/19 15:06 Last Admin: 10/07/19 19:30 Dose: 50 mls/hr Ondansetron HCl (Zofran -) 8 mg PO TID [facility] Last Admin: 10/08/19 13:11 Dose: 8 mg Pregabalin (Lyrica -) 75 mg PO BID [facility] Last Admin: 10/08/19 10:06 Dose: 75 mg Tramadol HCl (Ultram -) 50 mg PO Q6H PRN PRN Reason: PAIN LEVEL 6-10 Last Admin: 10/03/19 09:18 Dose: 50 mg - Objective Vital Signs: Vital Signs Temperature 98 F 10/08/19 09:19 Pulse Rate 87 10/08/19 09:19 Respiratory Rate 18 10/08/19 09:19 Blood Pressure 120/73 10/08/19 09:19 O2 Sat by Pulse Oximetry (%) 100 10/08/19 09:00 Eyes: Yes: WNL, Conjunctiva Clear, EOM Intact HENT: Yes: WNL, Atraumatic, Normocephalic Neck: Yes: WNL, Supple, Trachea Midline Cardiovascular: Yes: WNL, Regular Rate and Rhythm Respiratory: Yes: WNL, Regular, CTA Bilaterally Gastrointestinal: Yes: WNL, Normal Bowel Sounds Genitourinary: Yes: WNL Musculoskeletal: Yes: WNL Extremities: Yes: WNL Edema: No Integumentary: Yes: WNL Neurological: Yes: WNL, Alert, Oriented ...Motor Strength: WNL Psychiatric: Yes: WNL Labs: CBC, BMP 10/07/19 07:03 10/08/19 11:15 INR, PTT INR 1.01 (0.83-1.09) 09/13/19 14:40 Assessment/Plan - Problems (1) Acute on chronic systolic (congestive) heart failure Assessment/Plan: ECHO: Severely reduced LVEF (20%); minimal-mild aortic stenosis (may be underestimated due to poor LVEF). On carvedilol 3.125 mg bid; increase dose when and if BP allows. Progressive renal dysfunction precludes use of Entresto, ACEI, ARB, or spironolactone at this time. Consider hydralazine + nitrate if BP allows. F/u BUN/Cr, electrolytes, daily weight, Is and Os. (now s/p cystoscopy and bilateral ureteral stent change). Code(s): I50.23 - ACUTE ON CHRONIC SYSTOLIC (CONGESTIVE) HEART FAILURE (2) Anemia Code(s): D64.9 - ANEMIA, UNSPECIFIED (3) Metastasis from malignant tumor of breast Assessment/Plan: f/u with hem/oncologist. Code(s): C79.9 - SECONDARY MALIGNANT NEOPLASM OF UNSPECIFIED SITE; C50.919 - MALIGNANT NEOPLASM OF UNSP SITE OF UNSPECIFIED FEMALE BREAST (4) Leukocytosis Code(s): D72.829 - ELEVATED WHITE BLOOD CELL COUNT, UNSPECIFIED Qualifiers: Leukocytosis type: unspecified Qualified Code(s): D72.829 - Elevated white blood cell count, unspecified (5) Renal dysfunction Assessment/Plan: s/p cystoscopy, ureteral stent Code(s): N28.9 - DISORDER OF KIDNEY AND URETER, UNSPECIFIED
--- NOTE | 2019-10-08 15:20 | PN ---
Physical Exam: SUBJECTIVE: Patient seen and examined. Pt anxious about going to a new place, [facility]. Appears to have depressed mood due to prognosis. Castellanos draining cloudy urine, improving. Nephrostomy bag becoming cloudy, improving as well. Stool is dark in color. No overnight events. No fevers overnight. Denies f/c/n/v/d/sob OBJECTIVE: Vital Signs Period Temp Pulse Resp BP Sys/Avila Pulse Ox Last 24 Hr 97.8 F-98.7 F 84-93 18-18 118-126/67-74 96-100 GENERAL: The patient is awake, alert. Pt is much improved today. EYES: PERRL, extraocular movements intact, sclera anicteric, conjunctiva clear. ENT: oropharynx clear without exudates, moist mucous membranes. NECK: Trachea midline, full range of motion, supple. LUNGS: Breath sounds equal, clear to auscultation bilaterally, no wheezes, no crackles, HEART: Regular rate and rhythm, S1, S2 without murmur, rub or gallop. ABDOMEN: Soft, nontender, nondistended, normoactive bowel sounds, no guarding, Colostomy bag on the right- draining dark stool. Left nephrostomy tube in place - draining cloudy urine-improved. Castellanos placed back- draining cloudy urine- urine improving EXTREMITIES: 2+ pulses, warm, well-perfused, no edema. RUE erythema improved, swelling improved NEUROLOGICAL: Cranial nerves II through XII grossly intact. Normal speech PSYCH: Normal mood, normal affect. Laboratory Results - last 24 hr CBC,CMP WBC 11.1 K/mm3 (4.0-10.0) H 10/07/19 07:03 RBC 2.79 M/mm3 (3.60-5.2) L 10/07/19 07:03 Hgb 9.3 GM/dL (10.7-15.3) L 10/07/19 07:03 Hct 27.4 % (32.4-45.2) L 10/07/19 07:03 MCV 98.3 fl (80-96) H 10/07/19 07:03 MCH 33.3 pg (25.7-33.7) 10/07/19 07:03 MCHC 33.9 g/dl (32.0-36.0) 10/07/19 07:03 RDW 16.1 % (11.6-15.6) H 10/07/19 07:03 Plt Count 250 K/MM3 (134-434) 10/07/19 07:03 MPV 8.8 fl (7.5-11.1) 10/07/19 07:03 Absolute Neuts (auto) 8.9 K/mm3 (1.5-8.0) H 09/28/19 07:05 Neutrophils % 81.8 % (42.8-82.8) 09/28/19 07:05 Neutrophils % (Manual) 77.0 % (42.8-82.8) 09/21/19 06:40 Band Neutrophils % 10.0 % 09/21/19 06:40 Lymphocytes % 7.2 % (8-40) L 09/28/19 07:05 Lymphocytes % (Manual) 0.0 % (8-40) L 09/21/19 06:40 Monocytes % 6.7 % (3.8-10.2) 09/28/19 07:05 Monocytes % (Manual) 9 % (3.8-10.2) 09/21/19 06:40 Eosinophils % 3.9 % (0-4.5) 09/28/19 07:05 Eosinophils % (Manual) 2.0 % (0-4.5) 09/21/19 06:40 Basophils % 0.4 % (0-2.0) 09/28/19 07:05 Basophils % (Manual) 0.0 % (0-2.0) 09/21/19 06:40 Myelocytes % (Man) 0 % (0-2) 09/21/19 06:40 Promyelocytes % (Man) 0 % (0-2) 09/21/19 06:40 Blast Cells % (Manual) 0 % (0-0) 09/21/19 06:40 Nucleated RBC % 0 % (0-0) 09/28/19 07:05 Metamyelocytes 0 % (0-2) 09/21/19 06:40 Hypochromia 0 09/21/19 06:40 Platelet Estimate Normal 09/21/19 06:40 Polychromasia 0 09/21/19 06:40 Poikilocytosis 1+ 09/21/19 06:40 Anisocytosis 1+ 09/21/19 06:40 Microcytosis 1+ 09/21/19 06:40 Macrocytosis 0 09/21/19 06:40 Spherocytes 1+ 09/21/19 06:40 Target Cells Few 09/15/19 13:50 Ovalocytes 1+ 09/21/19 06:40 Acanthocytes (Spur) 1+ 09/21/19 06:40 ESR 55 mm/hr (0-30) H 09/21/19 06:40 Retic Count 1.39 % (0.5-1.5) 09/22/19 07:34 Sodium 134 mmol/L (136-145) L 10/08/19 11:15 Potassium 4.0 mmol/L (3.5-5.1) 10/08/19 11:15 Chloride 98 mmol/L (98-107) 10/08/19 11:15 Carbon Dioxide 26 mmol/L (21-32) 10/08/19 11:15 Anion Gap 11 MMOL/L (8-16) 10/08/19 11:15 BUN 89.6 mg/dL (7-18) H 10/08/19 11:15 Creatinine 2.8 mg/dL (0.55-1.3) H 10/08/19 11:15 Est GFR (CKD-EPI)AfAm 18.64 10/08/19 11:15 Est GFR (CKD-EPI)NonAf 16.08 10/08/19 11:15 POC Glucometer 116 UNITS (80-120) 09/16/19 12:06 Random Glucose 135 mg/dL (74-106) H 10/08/19 11:15 Serum Osmolality 301 mosm/kg (278-305) 09/19/19 06:50 Lactic Acid 1.0 mmol/L (0.4-2.0) 09/13/19 18:33 Calcium 9.0 mg/dL (8.5-10.1) 10/08/19 11:15 Phosphorus 5.3 mg/dL (2.5-4.9) H 10/07/19 07:03 Magnesium 1.9 mg/dL (1.8-2.4) 10/07/19 07:03 Iron 44 ug/dL (50-175) L 09/14/19 07:00 TIBC 248 ug/dL (250-450) L 09/14/19 07:00 Iron Saturation 17 % (17.5-39) L 09/14/19 07:00 Unsaturated IBC 204 ug/dL (200-275) 09/14/19 07:00 Ferritin 363.3 ng/ml (8-388) 09/16/19 07:00 Total Bilirubin 0.5 mg/dL (0.2-1) 10/07/19 07:03 GGT 121 U/L (5-85) H 09/30/19 07:50 AST 51 U/L (15-37) H 10/07/19 07:03 ALT 16 U/L (13-61) 10/07/19 07:03 Alkaline Phosphatase 141 U/L (45-117) H 10/07/19 07:03 Creatine Kinase 73 U/L (26-192) 09/13/19 14:10 Troponin I Cancelled 09/13/19 14:40 C-Reactive Protein 4.7 MG/DL (0.00-0.3) H 09/21/19 06:40 B-Natriuretic Peptide 5940.9 pg/ml (5-125) H 09/19/19 06:50 Total Protein 6.6 g/dl (6.4-8.2) 10/07/19 07:03 Albumin 2.4 g/dl (3.4-5.0) L 10/07/19 07:03 Vitamin B12 591 pg/ml (193-986) 09/14/19 07:00 Serum Folate 29 ng/mL (3.1-17.5) H 09/14/19 07:00 TSH 3.02 uIU/ml (0.358-3.74) 09/16/19 07:00 Active Medications Generic Name Dose Route Start Last Admin Trade Name Freq PRN Reason Stop Dose Admin Acetaminophen 650 mg 09/23/19 13:24 10/05/19 14:00 Tylenol - PO 650 mg Q6H PRN Administration Fever Or Pain 1-3 Albuterol/Ipratropium 1 amp 09/23/19 14:00 10/08/19 08:49 Duoneb - NEB 1 amp RTID TRICIA Administration Artificial Tears 1 drop 09/23/19 13:24 Artificial Tears OU BID PRN DRY EYES Calcitonin 1 spray 09/24/19 10:00 10/08/19 10:10 Miacalcin [place] - NS 1 spray DAILY TRICIA Administration Carvedilol 3.125 mg 09/23/19 22:00 10/08/19 10:07 Coreg - PO 3.125 mg BID TRICIA Administration Cholecalciferol 3,000 unit 09/24/19 10:00 10/08/19 10:07 Vitamin D3 - PO 3,000 unit DAILY TRICIA Administration Ondansetron HCl 8 mg 10/05/19 06:00 10/08/19 13:11 Zofran - PO 8 mg TID TRICIA Administration Pregabalin 75 mg 10/04/19 10:00 10/08/19 10:06 Lyrica - PO 75 mg BID TRICIA Administration Tramadol HCl 50 mg 10/02/19 12:29 10/03/19 09:18 Ultram - PO 50 mg Q6H PRN Administration PAIN LEVEL 6-10 ASSESSMENT/PLAN: 73 y/o F, pmh of Breast cancer stage 3A w/ mets to the spine, peritoneal cavity , colon, spine, s/p right mastectomy, s/p radiation, b/l ureteral stents w/ b/l hydro, mild b/l pleural effusion, presents c/o of weakness of 1-2 weeks duration and abdominal cramping of 1 day duration #Blood in stool FOBT+ in colostomy stool Dr. Cerda consulted- pending recom #ALEKSANDER, elevated Cre b/l hydronephrosis s/p ureteral stents Pt accepted to [facility]- d/c planning in process #Febrile 102.1F likely 2/2 to castellanos UTI Now resolved Urine remains cloudy, nephrostomy bag remains cloudy Abx- Zosyn Q8H UCx: ESBL, resistant to several abx except gentamycin and tigecycline BCx- no growth Dr Joiner recom, monitor pt off abx #Elevated ALP likely 2/2 to metastatic process of bones vs biliary disease #New Systolic CHF Progressive renal dysfunction precludes use of Entresto, ACEI, ARB, or spironolactone at this time. Consider hydralazine + nitrate after pt's renal function as stabilized #Macrocytic Anemia ? sec to CTx vs chronic disease vs marrow infiltration by tumor process. Hb improved Ferrous sulfate #Right pelvic mass US bladder- cystic mass like density right hemipelvis- irregular mass like density if its anterior wall. #Abdominal cramping/Generalized spasm likely 2/2 to dehydration 2/2 Failure to thrive vs Navelbine adverse effect now resolved Diet regular Lyrica Tramdaol 50 #Decreased mood Will cancer genetic counselor and consider antidepressants if needed #DVTppx hep sq TID FEN monitor lytes Regular diet Dispo: monitor off abx, going to [facility], GI consult pending Visit type - Emergency Visit Emergency Visit: Yes ED Registration Date: 09/17/19 Care time: The patient presented to the Emergency Department on the above date and was hospitalized for further evaluation of their emergent condition. - New Patient This patient is new to me today: Yes Date on this admission: 10/09/19 - Critical Care Critical Care patient: No - Discharge Referral Referred to [facility] Med P.C.: No ATTENDING PHYSICIAN STATEMENT I saw and evaluated the patient. I reviewed the resident's note and discussed the case with the resident. I agree with the resident's findings and plan as documented. SUBJECTIVE: OBJECTIVE: ASSESSMENT AND PLAN:
--- NOTE | 2019-10-08 15:49 | PN ---
Teaching Attending Note Name of Resident: Toñito Quintana ATTENDING PHYSICIAN STATEMENT I saw and evaluated the patient. I reviewed the resident's note and discussed the case with the resident. I agree with the resident's findings and plan as documented. SUBJECTIVE: Feels comfortable, No abdominal pain/diarrhea/nausea/vomiting. No complaints. Nursing reports dark stool via ileostomy. OBJECTIVE: Afebrile, Hemodynamically Stable. Last Vital Signs Temp Pulse Resp BP Pulse Ox 98.4 F 94 H 18 115/67 100 10/08/19 15:34 10/08/19 15:34 10/08/19 15:34 10/08/19 15:34 10/08/19 09:00 Heart - S1, S2, RRR Lungs - decreased air entry at bases. R side portacath. Abdomen - Soft, non-tender. Mild distension. R sided -ostomy working, liquid stool. Dark stool. Bowel Sounds normal. - Urine via castellanos clear - no further blood. L nephrostomy - urine clear. Extremities - mild edema, no calf tenderness. RUE erythema/edema improved. Neuro - AAO x 3. Tone/Power normal all extremities. Laboratory Results - last 24 hr 10/08/19 10/08/19 10:40 11:15 Sodium 134 L Potassium 4.0 Chloride 98 Carbon Dioxide 26 Anion Gap 11 BUN 89.6 H Creatinine 2.8 H Est GFR (CKD-EPI)AfAm 18.64 Est GFR (CKD-EPI)NonAf 16.08 Random Glucose 135 H Calcium 9.0 Stool Occult Blood Positive Current Medications Generic Name Dose Route Start Last Admin Trade Name Freq PRN Reason Stop Dose Admin Acetaminophen 650 mg 09/23/19 13:24 10/05/19 14:00 Tylenol - PO 650 mg Q6H PRN Administration Fever Or Pain 1-3 Albuterol/Ipratropium 1 amp 09/23/19 14:00 10/08/19 08:49 Duoneb - NEB 1 amp RTID TRICIA Administration Artificial Tears 1 drop 09/23/19 13:24 Artificial Tears OU BID PRN DRY EYES Calcitonin 1 spray 09/24/19 10:00 10/08/19 10:10 Miacalcin [place] - NS 1 spray DAILY TRICIA Administration Carvedilol 3.125 mg 09/23/19 22:00 10/08/19 10:07 Coreg - PO 3.125 mg BID TRICIA Administration Cholecalciferol 3,000 unit 09/24/19 10:00 10/08/19 10:07 Vitamin D3 - PO 3,000 unit DAILY TRICIA Administration Ondansetron HCl 8 mg 10/05/19 06:00 10/08/19 13:11 Zofran - PO 8 mg TID TRICIA Administration Pregabalin 75 mg 10/04/19 10:00 10/08/19 10:06 Lyrica - PO 75 mg BID TRICIA Administration Tramadol HCl 50 mg 10/02/19 12:29 10/03/19 09:18 Ultram - PO 50 mg Q6H PRN Administration PAIN LEVEL 6-10 Home Medications Medication Instructions Recorded Calcium Citrate/Magnesium/D3 2 tab PO DAILY 05/08/17 [Calcium Citrate Chewable Wafer] Cholecalciferol (Vitamin D3) 3,000 unit PO DAILY 05/08/17 [Vitamin D3] Vitamin B Complex 1 each PO DAILY 05/08/17 Ferrous Sulfate [Feosol] 325 mg PO DAILY 01/15/18 Cyclobenzaprine HCl 10 mg PO Q8H 09/13/19 Ondansetron HCl [Zofran] 4 mg PO Q8H 09/13/19 Albuterol 2.5/Ipratropium 0.5 1 amp NEB RTID amp 10/07/19 [Duoneb -] Carvedilol [Coreg -] 3.125 mg PO BID tablet 10/07/19 Pregabalin [Lyrica -] 75 mg PO BID #60 capsule MDD 150 10/07/19 traMADol HCL [Ultram -] 50 mg PO Q6H PRN tablet MDD 200 10/07/19 ASSESSMENT/PLAN: 73 year old female with history of Metastatic Breast Ca (bone, peritoneal cavity , stomach), s/p mastectomy, s/p small bowel resection/R colectomy/end ileostomy due to mets, last CTx 09/01/19, bilateral ureteral stents due to bilateral hydronephrosis due to compressive metastatic ca, presents with generalized weakness and upper body/torso spasm episode, lasting minutes, resolved spontaneously. She has history of spasm, on flexeril PRN. 1. FOBT positive stool via ilestomy Hemodynamically stable. CBC stat, GI consult. IV PPI 2. Generalized weakness/Muscular Spasm - resolved Possible side-effects of chemotherapy and tumor burden/chronic disease. Poor appetite - nutrition as per diet recommendations. No further spasm episodes. Flexeril PRN. 3. ALEKSANDER - some improvement in Creat, likley CKD 3 now. NM Renal Scan positive for bilateral renal outlet obstruction Hx of bilateral hydronephrosis s/p ureteral stents, now with ALEKSANDER and worsening creatinine POD 15 s/p Cystoscopy with R ureteral stent exchange and L ureteral stent removal by Dr. Josue. Hematuria via castellanos improved. POD 14 s/p L Nephrostomy by IR - clear urine draining, no further blood per nephrostomy. Nephrology and Urology to continue following as out-patient. Failed TOV, will discharge with Castellanos 4. Cellulitis RUE - resolved Leukocytosis resolved No DVT on US Duplex Received course of Zosyn/Vanco as per ID - transitioned and completed oral Keflex course 5. Chronic Systolic HF, etiology unclear ?sec to Chemotherapy EF 20%, bibasal effusions, mild LE edema. Coreg started Patient off IV fluids and Lasix. Cardiology to continue following as out-patient. 6. Metastatic Breast Ca (Bone - C/L spine, ribs, femoral shafts, sacrum, peritoneal cavity), s/p mastectomy, last CTx 09/01/[address] Chest ?metastatic, no respiratory distress. s/p recent CTx s/p Neupogen Oncology following - unlikley candidate for further chemotherapy. DNR/DNI Will likely transition to comfort measures if clinical status deteriorates. 7. Compression Fracture L4 ?pathologic with significant stenosis L 3/4, L 4/5. Asymptomatic currently. Tramadol prn. Lyrica held by Hematology, reason unclear. Will monitor patient comfort/pain level. Consider Neurosurgery eval as out-patient. 8. Acute on Chronic Anemia ? sec to CTx vs chronic disease vs marrow infiltration by tumor process + Acute Blood Loss (GI source). Iron levels borderline. On Ferrous Sulfate. B12/Folate wnl. Hematuria resolved. H/H stable 9.3/27.4 s/p 1 unit PRBCs. Will monitor. 8. Hyperkalemia sec to ALEKSANDER - resolved s/p Lokelma. 9. Urine Cx positive for ESBL - likely colonizer as per ID. Antibiotics discontinued. Castellanos changed. Etiology of fever unclear, now resolved. For observation off abx therapy. Resident discussed with Dr. Rhys of ID. Prognosis poor. DNR/DNI. SNF as likely bridge to Hospice care given underlying progressive disease with questionable further treatment to be given by Oncology.
[2019-10-08 18:04] LABS: HEMATOCRIT 25.4 % (32.4-45.2); HEMOGLOBIN 8.6 GM/dL (10.7-15.3); MCH 32.8 pg (25.7-33.7); MCHC 33.8 g/dl (32.0-36.0); MEAN CELL VOLUME 97.1 fl (80-96); MEAN PLT VOLUME 8.2 fl (7.5-11.1); PLATELET COUNT 281 K/MM3 (134-434); RBC 2.62 M/mm3 (3.60-5.2); RDW 16.4 % (11.6-15.6); WHITE BLOOD COUNT 11.4 K/mm3 (4.0-10.0)
--- NOTE | 2019-10-08 18:23 | CON.GI ---
Consult Consult Specialty:: GI Referred by:: Dr. Quintana Reason for Consultation:: Heme positive stool and anemia - History of Present Illness Chief Complaint: Anemia History of Present Illness: 73 year old woman with metastatic breast cancer (bone, peritoneal cavity, stomach) with history of surgery and chemotherapy as primary treatment along with small bowel resection (ICR?) with ileostomy with last chemotherapy 09/01/19, has bilateral ureteral stents from metastases-induced bilateral hydronephrosis noted to have anemia and heme positive stool, both of which patient is aware. Hgb now 8.6 g/dl; was 9.1 at admission 09/03. Has received 1 unit PRBC's. - History Source History Provided By: Patient - Past Medical History [employer] WORK[employer]: Yes: Peripheral Neuropathy Cardio/Vascular: Yes: HTN Renal/: Yes: Renal Failure, Renal Inusuff, UTI (hydronephrosis), Other ( obstructive uropathy) - Alcohol/Substance Use Hx Alcohol Use: No - Smoking History Smoking history: Never smoked Have you smoked in the past 12 months: No Aproximately how many cigarettes per day: 0 Home Medications - Allergies Allergies/Adverse Reactions: Allergies Allergy/AdvReac Type Severity Reaction Status Date / Time No Known Drug Allergies Allergy Verified 09/13/19 12:58 - Home Medications Home Medications: Ambulatory Orders Calcium Citrate/Magnesium/D3 [Calcium Citrate Chewable Wafer] 2 tab PO DAILY 08/12 Cholecalciferol (Vitamin D3) [Vitamin D3] 3,000 unit PO DAILY 05/08/17 Vitamin B Complex 1 each PO DAILY 05/08/17 Ferrous Sulfate [Feosol] 325 mg PO DAILY 01/15/18 Cyclobenzaprine HCl 10 mg PO Q8H 09/13/19 Ondansetron HCl [Zofran] 4 mg PO Q8H 09/13/19 Albuterol 2.5/Ipratropium 0.5 [Duoneb -] 1 amp NEB RTID amp 10/07/19 Carvedilol [Coreg -] 3.125 mg PO BID tablet 10/07/19 Pregabalin [Lyrica -] 75 mg PO BID #60 capsule MDD 150 10/07/19 traMADol HCL [Ultram -] 50 mg PO Q6H PRN tablet MDD 200 10/07/19 Review of Systems - Review of Systems Constitutional: reports: Lethargy, Loss of Appetite, Malaise Gastrointestinal: denies: Diarrhea, Dysphagia, Melena, Vomiting Physical Exam-GI Vital Signs: Vital Signs Temperature 98.4 F 10/08/19 15:34 Pulse Rate 94 H 10/08/19 15:34 Respiratory Rate 18 10/08/19 15:34 Blood Pressure 115/67 10/08/19 15:34 O2 Sat by Pulse Oximetry (%) 100 10/08/19 09:00 Constitutional: Yes: Calm, Thin Gastrointestinal Inspection: Yes: Scars, Other (right sided ileostomy; pasty brown stool; pink mucosa) ...Auscultate: Yes: Normoactive Bowel Sounds ...Palpate: No: Mass, Tenderness Labs: CBC, BMP 10/08/19 17:30 INR, PTT INR 1.01 (0.83-1.09) 09/13/19 14:40 Imaging - Results Cat Scan: Report Reviewed (thickening of ascending and transverse colon; sigmoid diverticula noted in GI tract) Assessment/Plan Heme positive stool and stable anemia in setting of metastatic breast cancer. Uncertain at this time as to the value of additional diagnostic evaluation of GI tract given overall therapy plans, but will defer to primary team. If thought is that there is value in GI diagnostic procedures (EGD and colonoscopy ) GI team will pursue.
[2019-10-08 18:27] LABS: ALBUMIN 2.4 g/dl (3.4-5.0); BILIRUBIN,TOTAL 0.3 mg/dL (0.2-1); BLOOD UREA NITROGEN 93.8 mg/dL (7-18); CALCIUM 9.1 mg/dL (8.5-10.1); CREATININE 2.8 mg/dL (0.55-1.3); MAGNESIUM 1.9 mg/dL (1.8-2.4); PHOSPHOROUS 4.7 mg/dL (2.5-4.9); POTASSIUM 3.9 mmol/L (3.5-5.1); TOT PROT 6.3 g/dl (6.4-8.2)
--- NOTE | 2019-10-08 19:33 | PN ---
Progress Note (short form) - Note Progress Note: Patient seen and examined Melanotic stool Seen by GI - Needs work up Last Vital Signs Temp Pulse Resp BP Pulse Ox 98.4 F 94 H 18 115/67 100 10/08/19 15:34 10/08/19 15:34 10/08/19 15:34 10/08/19 15:34 10/08/19 09:00 HEENT: PAT, EOM Intact Breasts: right chest wall telangiectasia Cor: RSR, No murmurs, No gallops Lungs: Clear to P&A Abd: Soft, Normal bowel sounds, No organomegaly, ileostomy with melena Ext:No significant edema Skin: No rashes, Integument intact Nephrostomy tubes CBC, BMP 10/08/19 17:30 10/08/19 17:30 Current Medications Generic Name Dose Route Start Last Admin Trade Name Freq PRN Reason Stop Dose Admin Acetaminophen 650 mg 09/23/19 13:24 10/05/19 14:00 Tylenol - PO 650 mg Q6H PRN Administration Fever Or Pain 1-3 Albuterol/Ipratropium 1 amp 09/23/19 14:00 10/08/19 15:10 Duoneb - NEB 1 amp RTID TRICIA Administration Artificial Tears 1 drop 09/23/19 13:24 Artificial Tears OU BID PRN DRY EYES Calcitonin 1 spray 09/24/19 10:00 10/08/19 10:10 Miacalcin [place] - NS 1 spray DAILY TRICIA Administration Carvedilol 3.125 mg 09/23/19 22:00 10/08/19 10:07 Coreg - PO 3.125 mg BID TRICIA Administration Cholecalciferol 3,000 unit 09/24/19 10:00 10/08/19 10:07 Vitamin D3 - PO 3,000 unit DAILY TRICIA Administration Ondansetron HCl 8 mg 10/05/19 06:00 10/08/19 13:11 Zofran - PO 8 mg TID TRICIA Administration Pregabalin 75 mg 10/04/19 10:00 10/08/19 10:06 Lyrica - PO 75 mg BID TRICIA Administration Tramadol HCl 50 mg 10/02/19 12:29 10/03/19 09:18 Ultram - PO 50 mg Q6H PRN Administration PAIN LEVEL 6-10 Impression GI bleeding Metastatic breast ca Anemia CKD/ALEKSANDER s/p neprostomy s/p change of stents Plan GI follow up monitor cbc transfuse if Hb< 8.0 gm. check PT
[2019-10-08] MEDS ORDERED: PT OWN MED DRAWER 7, Y5N ONE (21:13)
[2019-10-09] MEDS ORDERED: PT OWN MED DRAWER 7, Y5N ONE ×2 (05:30→21:26)
[2019-10-09] MEDS: ONDANSETRON 8 MG TABLET (FP) PO SCH ×3 (05:41→21:47)
[2019-10-09] MEDS: ALBUTEROL SO4 2.5/IPRATROPIUM 0.5 INH SOL 3 ML VIAL.NEB. NEB SCH ×3 (07:20→20:30)
[2019-10-09 09:16] LABS: BASO % 0.2 % (0-2.0); EOS % 0.4 % (0-4.5); HEMOGLOBIN 8.3 GM/dL (10.7-15.3); LYMPH % 6.2 % (8-40); MCH 33.3 pg (25.7-33.7); MCHC 34.4 g/dl (32.0-36.0); MEAN CELL VOLUME 96.8 fl (80-96); MEAN PLT VOLUME 7.5 fl (7.5-11.1); MONO % 9.6 % (3.8-10.2); NEUT % 83.6 % (42.8-82.8); PLATELET COUNT 247 K/MM3 (134-434); RBC 2.48 M/mm3 (3.60-5.2); WHITE BLOOD COUNT 9.3 K/mm3 (4.0-10.0)
[2019-10-09] MEDS: CALCITONIN - SALMON SYNTHETIC 200 UNITS/SPRAY NS SCH (09:22)
[2019-10-09] MEDS: PREGABALIN 75 MG CAPSULE PO SCH ×2 (09:23→21:47)
[2019-10-09] MEDS: CHOLECALCIFEROL (VIT D3) 1,000 UNIT (25 MCG) TABLET PO SCH (09:23)
[2019-10-09] MEDS: CARVEDILOL 3.125 MG TABLET (FP) PO SCH ×2 (09:23→21:47)
[2019-10-09 09:31] LABS: INR 1.1 (0.83-1.09)
[2019-10-09 10:04] LABS: ALBUMIN 2.2 g/dl (3.4-5.0); BILIRUBIN,TOTAL 0.4 mg/dL (0.2-1); BLOOD UREA NITROGEN 92.3 mg/dL (7-18); CALCIUM 9.2 mg/dL (8.5-10.1); CREATININE 2.6 mg/dL (0.55-1.3); MAGNESIUM 1.9 mg/dL (1.8-2.4); PHOSPHOROUS 4.9 mg/dL (2.5-4.9); POTASSIUM 3.9 mmol/L (3.5-5.1)
--- NOTE | 2019-10-09 12:58 | PN ---
Physical Exam: SUBJECTIVE: Patient seen and examined. Pt anxious about going to a new place, [facility]. Appears to have depressed mood due to prognosis. Castellanos draining normal urine. Nephrostomy bag draining normal urine. Stool is dark in color. No overnight events. No fevers overnight. Denies f/c/n/v/d/sob OBJECTIVE: Vital Signs Period Temp Pulse Resp BP Sys/Avila Pulse Ox Last 24 Hr 97.9 F-98.5 F 77-94 18-18 109-130/66-84 96-100 GENERAL: The patient is awake, alert. Pt is much improved today. EYES: PERRL, extraocular movements intact, sclera anicteric, conjunctiva clear. ENT: oropharynx clear without exudates, moist mucous membranes. NECK: Trachea midline, full range of motion, supple. LUNGS: Breath sounds equal, clear to auscultation bilaterally, no wheezes, no crackles, HEART: Regular rate and rhythm, S1, S2 without murmur, rub or gallop. ABDOMEN: Soft, nontender, nondistended, normoactive bowel sounds, no guarding, Colostomy bag on the right- draining dark stool. Left nephrostomy tube in place. Castellanos placed back. EXTREMITIES: 2+ pulses, warm, well-perfused, no edema. RUE erythema improved, swelling improved NEUROLOGICAL: Cranial nerves II through XII grossly intact. Normal speech PSYCH: Normal mood, normal affect. Laboratory Results - last 24 hr CBC,CMP WBC 9.3 K/mm3 (4.0-10.0) 10/09/19 08:55 RBC 2.48 M/mm3 (3.60-5.2) L 10/09/19 08:55 Hgb 8.3 GM/dL (10.7-15.3) L 10/09/19 08:55 Hct 24.0 % (32.4-45.2) L 10/09/19 08:55 MCV 96.8 fl (80-96) H 10/09/19 08:55 MCH 33.3 pg (25.7-33.7) 10/09/19 08:55 MCHC 34.4 g/dl (32.0-36.0) 10/09/19 08:55 RDW 16.0 % (11.6-15.6) H 10/09/19 08:55 Plt Count 247 K/MM3 (134-434) 10/09/19 08:55 MPV 7.5 fl (7.5-11.1) 10/09/19 08:55 Absolute Neuts (auto) 7.8 K/mm3 (1.5-8.0) 10/09/19 08:55 Neutrophils % 83.6 % (42.8-82.8) H 10/09/19 08:55 Neutrophils % (Manual) 77.0 % (42.8-82.8) 09/21/19 06:40 Band Neutrophils % 10.0 % 09/21/19 06:40 Lymphocytes % 6.2 % (8-40) L 10/09/19 08:55 Lymphocytes % (Manual) 0.0 % (8-40) L 09/21/19 06:40 Monocytes % 9.6 % (3.8-10.2) 10/09/19 08:55 Monocytes % (Manual) 9 % (3.8-10.2) 09/21/19 06:40 Eosinophils % 0.4 % (0-4.5) D 10/09/19 08:55 Eosinophils % (Manual) 2.0 % (0-4.5) 09/21/19 06:40 Basophils % 0.2 % (0-2.0) 10/09/19 08:55 Basophils % (Manual) 0.0 % (0-2.0) 09/21/19 06:40 Myelocytes % (Man) 0 % (0-2) 09/21/19 06:40 Promyelocytes % (Man) 0 % (0-2) 09/21/19 06:40 Blast Cells % (Manual) 0 % (0-0) 09/21/19 06:40 Nucleated RBC % 0 % (0-0) 10/09/19 08:55 Metamyelocytes 0 % (0-2) 09/21/19 06:40 Hypochromia 0 09/21/19 06:40 Platelet Estimate Normal 09/21/19 06:40 Polychromasia 0 09/21/19 06:40 Poikilocytosis 1+ 09/21/19 06:40 Anisocytosis 1+ 09/21/19 06:40 Microcytosis 1+ 09/21/19 06:40 Macrocytosis 0 09/21/19 06:40 Spherocytes 1+ 09/21/19 06:40 Target Cells Few 09/15/19 13:50 Ovalocytes 1+ 09/21/19 06:40 Acanthocytes (Spur) 1+ 09/21/19 06:40 ESR 55 mm/hr (0-30) H 09/21/19 06:40 Retic Count 1.39 % (0.5-1.5) 09/22/19 07:34 Sodium 135 mmol/L (136-145) L 10/09/19 08:55 Potassium 3.9 mmol/L (3.5-5.1) 10/09/19 08:55 Chloride 99 mmol/L (98-107) 10/09/19 08:55 Carbon Dioxide 26 mmol/L (21-32) 10/09/19 08:55 Anion Gap 9 MMOL/L (8-16) 10/09/19 08:55 BUN 92.3 mg/dL (7-18) H 10/09/19 08:55 Creatinine 2.6 mg/dL (0.55-1.3) H 10/09/19 08:55 Est GFR (CKD-EPI)AfAm 20.39 10/09/19 08:55 Est GFR (CKD-EPI)NonAf 17.59 10/09/19 08:55 POC Glucometer 116 UNITS (80-120) 09/16/19 12:06 Random Glucose 114 mg/dL (74-106) H 10/09/19 08:55 Serum Osmolality 301 mosm/kg (278-305) 09/19/19 06:50 Lactic Acid 1.0 mmol/L (0.4-2.0) 09/13/19 18:33 Calcium 9.2 mg/dL (8.5-10.1) 10/09/19 08:55 Phosphorus 4.9 mg/dL (2.5-4.9) 10/09/19 08:55 Magnesium 1.9 mg/dL (1.8-2.4) 10/09/19 08:55 Iron 44 ug/dL (50-175) L 09/14/19 07:00 TIBC 248 ug/dL (250-450) L 09/14/19 07:00 Iron Saturation 17 % (17.5-39) L 09/14/19 07:00 Unsaturated IBC 204 ug/dL (200-275) 09/14/19 07:00 Ferritin 363.3 ng/ml (8-388) 09/16/19 07:00 Total Bilirubin 0.4 mg/dL (0.2-1) 10/09/19 08:55 GGT 121 U/L (5-85) H 09/30/19 07:50 AST 51 U/L (15-37) H 10/09/19 08:55 ALT 16 U/L (13-61) 10/09/19 08:55 Alkaline Phosphatase 132 U/L (45-117) H 10/09/19 08:55 Creatine Kinase 73 U/L (26-192) 09/13/19 14:10 Troponin I Cancelled 09/13/19 14:40 C-Reactive Protein 4.7 MG/DL (0.00-0.3) H 09/21/19 06:40 B-Natriuretic Peptide 5940.9 pg/ml (5-125) H 09/19/19 06:50 Total Protein 6.0 g/dl (6.4-8.2) L 10/09/19 08:55 Albumin 2.2 g/dl (3.4-5.0) L 10/09/19 08:55 Vitamin B12 591 pg/ml (193-986) 09/14/19 07:00 Serum Folate 29 ng/mL (3.1-17.5) H 09/14/19 07:00 TSH 3.02 uIU/ml (0.358-3.74) 09/16/19 07:00 Active Medications Generic Name Dose Route Start Last Admin Trade Name Luz PRN Reason Stop Dose Admin Acetaminophen 650 mg 09/23/19 13:24 10/05/19 14:00 Tylenol - PO 650 mg Q6H PRN Administration Fever Or Pain 1-3 Albuterol/Ipratropium 1 amp 09/23/19 14:00 10/09/19 07:20 Duoneb - NEB 1 amp RTID TRICIA Administration Artificial Tears 1 drop 09/23/19 13:24 Artificial Tears OU BID PRN DRY EYES Calcitonin 1 spray 09/24/19 10:00 10/09/19 09:22 Miacalcin [place] - NS 1 spray DAILY TRICIA Administration Carvedilol 3.125 mg 09/23/19 22:00 10/09/19 09:23 Coreg - PO 3.125 mg BID TRICIA Administration Cholecalciferol 3,000 unit 09/24/19 10:00 10/09/19 09:23 Vitamin D3 - PO 3,000 unit DAILY TRICIA Administration Ondansetron HCl 8 mg 10/05/19 06:00 10/09/19 05:41 Zofran - PO 8 mg TID TRICIA Administration Pregabalin 75 mg 10/04/19 10:00 10/09/19 09:23 Lyrica - PO 75 mg BID TRICIA Administration Tramadol HCl 50 mg 10/02/19 12:29 10/03/19 09:18 Ultram - PO 50 mg Q6H PRN Administration PAIN LEVEL 6-10 ASSESSMENT/PLAN: 73 y/o F, pmh of Breast cancer stage 3A w/ mets to the spine, peritoneal cavity , colon, spine, s/p right mastectomy, s/p radiation, b/l ureteral stents w/ b/l hydro, mild b/l pleural effusion, presents c/o of weakness of 1-2 weeks duration and abdominal cramping of 1 day duration #Blood in stool FOBT+ in colostomy stool Discussed with pt about further intervention considering her prognosis. Pt wants further intervention. Discussed with Dr. Grimes to scope pt. Dr. Grimes agreed and will defer to his partner Dr. Cerda for the scope. #ALEKSANDER, elevated Cre b/l hydronephrosis s/p ureteral stents Pt accepted to [facility]- d/c planning on hold #Febrile 102.1F likely 2/2 to castellanos UTI Now resolved Abx- Zosyn Q8H UCx: ESBL likely colonized, resistant to several abx except gentamycin and tigecycline Dr Joiner recom, monitor pt off abx #Elevated ALP likely 2/2 to metastatic process of bones vs biliary disease #New Systolic CHF Progressive renal dysfunction precludes use of Entresto, ACEI, ARB, or spironolactone at this time. Consider hydralazine + nitrate after pt's renal function as stabilized #Macrocytic Anemia ? sec to CTx vs chronic disease vs marrow infiltration by tumor process. Hb improved Ferrous sulfate #Right pelvic mass US bladder- cystic mass like density right hemipelvis- irregular mass like density if its anterior wall. #Abdominal cramping/Generalized spasm likely 2/2 to dehydration 2/2 Failure to thrive vs Navelbine adverse effect now resolved Diet regular Lyrica Tramdaol 50 #Decreased mood Will career development counselor and consider antidepressants if needed #DVTppx hep sq TID FEN monitor lytes Regular diet Dispo: monitor off abx, GI recommendation for scope. Visit type - Emergency Visit Emergency Visit: Yes ED Registration Date: 09/17/19 Care time: The patient presented to the Emergency Department on the above date and was hospitalized for further evaluation of their emergent condition. - New Patient This patient is new to me today: Yes Date on this admission: 10/10/19 - Critical Care Critical Care patient: No - Discharge Referral Referred to [facility] Med P.C.: No ATTENDING PHYSICIAN STATEMENT I saw and evaluated the patient. I reviewed the resident's note and discussed the case with the resident. I agree with the resident's findings and plan as documented. SUBJECTIVE: OBJECTIVE: ASSESSMENT AND PLAN:
--- NOTE | 2019-10-09 14:10 | PN ---
Progress Note, Physician History of Present Illness: Pt seen and examined at bedside. She is awake and appears comfortable. - Current Medication List Current Medications: Active Medications Acetaminophen (Tylenol -) 650 mg PO Q6H PRN PRN Reason: Fever Or Pain 1-3 Last Admin: 10/05/19 14:00 Dose: 650 mg Albuterol/Ipratropium (Duoneb -) 1 amp NEB RTID [facility] Last Admin: 10/09/19 07:20 Dose: 1 amp Artificial Tears (Artificial Tears) 1 drop OU BID PRN PRN Reason: DRY EYES Calcitonin (Miacalcin [place] -) 1 spray NS DAILY [facility] Last Admin: 10/09/19 09:22 Dose: 1 spray Carvedilol (Coreg -) 3.125 mg PO BID [facility] Last Admin: 10/09/19 09:23 Dose: 3.125 mg Cholecalciferol (Vitamin D3 -) 3,000 unit PO DAILY [facility] Last Admin: 10/09/19 09:23 Dose: 3,000 unit Ondansetron HCl (Zofran -) 8 mg PO TID [facility] Last Admin: 10/09/19 13:51 Dose: 8 mg Pantoprazole Sodium (Protonix -) 40 mg PO DAILY [facility] Pregabalin (Lyrica -) 75 mg PO BID [facility] Last Admin: 10/09/19 09:23 Dose: 75 mg Tramadol HCl (Ultram -) 50 mg PO Q6H PRN PRN Reason: PAIN LEVEL 6-10 Last Admin: 10/03/19 09:18 Dose: 50 mg - Objective Vital Signs: Vital Signs Temperature 98.1 F 10/09/19 10:00 Pulse Rate 89 10/09/19 10:00 Respiratory Rate 18 10/09/19 10:00 Blood Pressure 109/67 10/09/19 10:00 O2 Sat by Pulse Oximetry (%) 96 10/09/19 09:00 Constitutional: Yes: Calm Eyes: Yes: Conjunctiva Clear HENT: Yes: Atraumatic Neck: Yes: Supple Cardiovascular: Yes: S1, S2 Respiratory: Yes: CTA Bilaterally Gastrointestinal: Yes: Soft Genitourinary: Yes: Ba[place] Present, Other (left nephrostomy) Musculoskeletal: Yes: WNL Edema: No Neurological: Yes: Oriented Psychiatric: Yes: Oriented Labs: CBC, BMP 10/09/19 08:55 10/09/19 08:55 INR, PTT INR 1.10 (0.83-1.09) H 10/09/19 08:55 Problem List - Problems (1) Renal dysfunction Code(s): N28.9 - DISORDER OF KIDNEY AND URETER, UNSPECIFIED (2) Hydronephrosis Code(s): N13.30 - UNSPECIFIED HYDRONEPHROSIS Qualifiers: Hydronephrosis type: unspecified Qualified Code(s): N13.30 - Unspecified hydronephrosis Assessment/Plan Current Medications Generic Name Dose Route Start Last Admin Trade Name Freq PRN Reason Stop Dose Admin Acetaminophen 650 mg 09/23/19 13:24 10/05/19 14:00 Tylenol - PO 650 mg Q6H PRN Administration Fever Or Pain 1-3 Albuterol/Ipratropium 1 amp 09/23/19 14:00 10/09/19 07:20 Duoneb - NEB 1 amp RTID TRICIA Administration Artificial Tears 1 drop 09/23/19 13:24 Artificial Tears OU BID PRN DRY EYES Calcitonin 1 spray 09/24/19 10:00 10/09/19 09:22 Miacalcin [place] - NS 1 spray DAILY TRICIA Administration Carvedilol 3.125 mg 09/23/19 22:00 10/09/19 09:23 Coreg - PO 3.125 mg BID TRICIA Administration Cholecalciferol 3,000 unit 09/24/19 10:00 10/09/19 09:23 Vitamin D3 - PO 3,000 unit DAILY TRICIA Administration Ondansetron HCl 8 mg 10/05/19 06:00 10/09/19 13:51 Zofran - PO 8 mg TID TRICIA Administration Pantoprazole Sodium 40 mg 10/10/19 10:00 Protonix - PO DAILY [facility] Pregabalin 75 mg 10/04/19 10:00 10/09/19 09:23 Lyrica - PO 75 mg BID TRICIA Administration Tramadol HCl 50 mg 10/02/19 12:29 10/03/19 09:18 Ultram - PO 50 mg Q6H PRN Administration PAIN LEVEL 6-10 Impression 1. CKD 2. leukopenia 3. obstructive uropathy with bilateral hydro 4. breast cancer with mets 5. HTN 6. hyperlipidemia 7. anemia 8. ALEKSANDER 9. CHF Plan - system architect improving - repeat labs in am - encourage po intake - gentle hydration - avoid nsaids Dr Land
--- NOTE | 2019-10-09 15:30 | PN.GI ---
GI Progress Note Subjective: Somewhat lethargic No abdominal pain No overt bleeding reported - Objective Vital Signs: Vital Signs Temperature 98.1 F 10/09/19 10:00 Pulse Rate 89 10/09/19 10:00 Respiratory Rate 18 10/09/19 10:00 Blood Pressure 109/67 10/09/19 10:00 O2 Sat by Pulse Oximetry (%) 96 10/09/19 09:00 Constitutional: Calm Eyes: No: Sclera Icterus Cardiovascular: Yes: Regular Rate and Rhythm Respiratory: Yes: Diminished (at bases bilaterally) Gastrointestinal Inspection: Yes: Other (Ileostomy in right abdomen: dark brown stool present, tracely gauaic positive) Neurological: Yes: Lethargy Labs: CBC, BMP 10/09/19 08:55 10/09/19 08:55 INR, PTT INR 1.10 (0.83-1.09) H 10/09/19 08:55 Problem List - Problems (1) Anemia Assessment/Plan: Previous endoscopic evaluation significant for matastatic BCA to the stomach. Guaiac positive stool noted through ileostomy. ? if persistent metastatic BCA in the stomach or other areas of the UGI tract / small bowel contributing to her heme positive stool. Ms. Carreno is quite lethargic today and given overall clinical picture, recommend observation for now with PRBC/Iron support. Ordered Protonix 40mg once daily If overt bleeding , persistently dwindling H/H, then discussion regarding endoscopic evaluation would be considered. Overall goals of care to be clarified. Code(s): D64.9 - ANEMIA, UNSPECIFIED
--- NOTE | 2019-10-09 15:51 | PN ---
Teaching Attending Note Name of Resident: Toñito Quintana ATTENDING PHYSICIAN STATEMENT I saw and evaluated the patient. I reviewed the resident's note and discussed the case with the resident. I agree with the resident's findings and plan as documented. SUBJECTIVE: Feels comfortable, No abdominal pain/diarrhea/nausea/vomiting. No complaints. Nursing reports dark stool via ileostomy. OBJECTIVE: Afebrile, Hemodynamically Stable. Last Vital Signs Temp Pulse Resp BP Pulse Ox 98.1 F 89 18 109/67 96 10/09/19 10:00 10/09/19 10:00 10/09/19 10:10/09/19 10:10/09/19 09:00 Heart - S1, S2, RRR Lungs - decreased air entry at bases. R side portacath. Abdomen - Soft, non-tender. Mild distension. R sided -ostomy working, liquid dark stool. Bowel Sounds normal. - Urine via castellanos clear - no further blood. L nephrostomy - urine clear. Extremities - mild edema, no calf tenderness. RUE erythema/edema improved. Neuro - AAO x 3. Tone/Power normal all extremities. Laboratory Results - last 24 hr 10/08/19 10/08/19 10/09/19 17:30 17:30 08:55 WBC 11.4 H RBC 2.62 L Hgb 8.6 L Hct 25.4 L MCV 97.1 H MCH 32.8 MCHC 33.8 RDW 16.4 H Plt Count 281 MPV 8.2 Absolute Neuts (auto) Neutrophils % Lymphocytes % Monocytes % Eosinophils % Basophils % Nucleated RBC % PT with INR INR PTT (Actin FS) Sodium 134 L 135 L Potassium 3.9 3.9 Chloride 97 L 99 Carbon Dioxide 28 26 Anion Gap 9 9 BUN 93.8 H 92.3 H Creatinine 2.8 H 2.6 H Est GFR (CKD-EPI)AfAm 18.64 20.39 Est GFR (CKD-EPI)NonAf 16.08 17.59 Random Glucose 125 H 114 H Calcium 9.1 9.2 Phosphorus 4.7 4.9 Magnesium 1.9 1.9 Total Bilirubin 0.3 0.4 AST 50 H 51 H ALT 14 16 Alkaline Phosphatase 141 H 132 H Total Protein 6.3 L 6.0 L Albumin 2.4 L 2.2 L 02/13/20 02/13/20 08:55 08:55 WBC 9.3 RBC 2.48 L Hgb 8.3 L Hct 24.0 L MCV 96.8 H MCH 33.3 MCHC 34.4 RDW 16.0 H Plt Count 247 MPV 7.5 Absolute Neuts (auto) 7.8 Neutrophils % 83.6 H Lymphocytes % 6.2 L Monocytes % 9.6 Eosinophils % 0.4 D Basophils % 0.2 Nucleated RBC % 0 PT with INR 13.00 INR 1.10 H PTT (Actin FS) 26.0 Sodium Potassium Chloride Carbon Dioxide Anion Gap BUN Creatinine Est GFR (CKD-EPI)AfAm Est GFR (CKD-EPI)NonAf Random Glucose Calcium Phosphorus Magnesium Total Bilirubin AST ALT Alkaline Phosphatase Total Protein Albumin Current Medications Generic Name Dose Route Start Last Admin Trade Name Freq PRN Reason Stop Dose Admin Acetaminophen 650 mg 09/23/19 13:24 10/05/19 14:00 Tylenol - PO 650 mg Q6H PRN Administration Fever Or Pain 1-3 Albuterol/Ipratropium 1 amp 09/23/19 14:00 10/09/19 14:27 Duoneb - NEB Not Given RTID TRICIA Artificial Tears 1 drop 09/23/19 13:24 Artificial Tears OU BID PRN DRY EYES Calcitonin 1 spray 09/24/19 10:00 10/09/19 09:22 Miacalcin [place] - NS 1 spray DAILY TRICIA Administration Carvedilol 3.125 mg 09/23/19 22:00 10/09/19 09:23 Coreg - PO 3.125 mg BID TRICIA Administration Cholecalciferol 3,000 unit 09/24/19 10:00 10/09/19 09:23 Vitamin D3 - PO 3,000 unit DAILY TRICIA Administration Ondansetron HCl 8 mg 10/05/19 06:00 10/09/19 13:51 Zofran - PO 8 mg TID TRICIA Administration Pantoprazole Sodium 40 mg 10/10/19 10:00 Protonix - PO DAILY TRICIA Pregabalin 75 mg 10/04/19 10:00 10/09/19 09:23 Lyrica - PO 75 mg BID TRICIA Administration Tramadol HCl 50 mg 10/02/19 12:29 10/03/19 09:18 Ultram - PO 50 mg Q6H PRN Administration PAIN LEVEL 6-10 Home Medications Medication Instructions Recorded Calcium Citrate/Magnesium/D3 2 tab PO DAILY 05/08/17 [Calcium Citrate Chewable Wafer] Cholecalciferol (Vitamin D3) 3,000 unit PO DAILY 05/08/17 [Vitamin D3] Vitamin B Complex 1 each PO DAILY 05/08/17 Ferrous Sulfate [Feosol] 325 mg PO DAILY 01/15/18 Cyclobenzaprine HCl 10 mg PO Q8H 09/13/19 Ondansetron HCl [Zofran] 4 mg PO Q8H 09/13/19 Albuterol 2.5/Ipratropium 0.5 1 amp NEB RTID amp 10/07/19 [Duoneb -] Carvedilol [Coreg -] 3.125 mg PO BID tablet 10/07/19 Pregabalin [Lyrica -] 75 mg PO BID #60 capsule MDD 150 10/07/19 traMADol HCL [Ultram -] 50 mg PO Q6H PRN tablet MDD 200 10/07/19 ASSESSMENT/PLAN: 73 year old female with history of Metastatic Breast Ca (bone, peritoneal cavity , stomach), s/p mastectomy, s/p small bowel resection/R colectomy/end ileostomy due to mets, last CTx 09/01/19, bilateral ureteral stents due to bilateral hydronephrosis due to compressive metastatic ca, presents with generalized weakness and upper body/torso spasm episode, lasting minutes, resolved spontaneously. She has history of spasm, on flexeril PRN. 1. FOBT positive stool via ileostomy, Hx of nodular mucosa at GEJ and erythematous gastric mucosa on prior EGD Hemodynamically stable. H/H mildly reduced. FOBT positive. Protonix. Evaluated by GI - initially GI recommended proceeding with EGD/Colonoscopy based on determination of the primary team. After my discussion with the patient today, she was willing to undergo the procedures. Now GI declines performing the procedures at this time, opting for further observation and H/H monitoring for an unspecified time period. Hemodynamically Stable. Will monitor. 2. Generalized weakness/Muscular Spasm - resolved Possible side-effects of chemotherapy and tumor burden/chronic disease. Poor appetite - nutrition as per diet recommendations. No further spasm episodes. Flexeril PRN. 3. ALEKSANDER - some improvement in Creat, likely CKD 3 now. NM Renal Scan positive for bilateral renal outlet obstruction Hx of bilateral hydronephrosis s/p ureteral stents, now with ALEKSANDER and worsening creatinine POD 16 s/p Cystoscopy with R ureteral stent exchange and L ureteral stent removal by Dr. Josue. Hematuria via castellanos resolved POD 15 s/p L Nephrostomy by IR - clear urine draining, no further blood per nephrostomy. Nephrology and Urology to continue following as out-patient. Failed TOV, will remain with Castellanos 4. Cellulitis RUE - resolved Leukocytosis resolved No DVT on US Duplex Received course of Zosyn/Vanco as per ID - transitioned and completed oral Keflex course 5. Chronic Systolic HF, etiology unclear ?sec to Chemotherapy EF 20%, bibasal effusions, mild LE edema. Coreg started Patient off IV fluids and Lasix. Cardiology to continue following as out-patient. No intervention for low EF ( Lifevest or ICD) recommended by Cardiology at this time. DNR/DNI. 6. Metastatic Breast Ca (Bone - C/L spine, ribs, femoral shafts, sacrum, peritoneal cavity), s/p mastectomy, last CTx 09/01/[address] Chest ?metastatic, no respiratory distress. s/p recent CTx s/p Neupogen Oncology following - unlikely candidate for further chemotherapy. DNR/DNI Will likely transition to comfort measures if clinical status deteriorates. 7. Compression Fracture L4 ?pathologic with significant stenosis L 3/4, L 4/5. Asymptomatic currently. Tramadol prn. Lyrica held by Hematology, reason unclear. Will monitor patient comfort/pain level. Consider Neurosurgery eval as out-patient. 8. Acute on Chronic Anemia ? sec to CTx vs chronic disease vs marrow infiltration by tumor process + Acute Blood Loss (GI source). Iron levels borderline. On Ferrous Sulfate. B12/Folate wnl. Hematuria resolved. H/H 8.3/24 s/p 1 unit PRBCs. Will monitor, especially given blood per ileostomy. 8. Hyperkalemia sec to ALEKSANDER - resolved s/p Lokelma. 9. Urine Cx positive for ESBL - likely colonizer as per ID. Antibiotics discontinued. Castellanos changed. Etiology of fever unclear, now resolved. For observation off abx therapy. Discussed with Dr. Joiner of ID. Prognosis poor. DNR/DNI. SNF as likely bridge to Hospice care given underlying progressive disease with questionable further treatment to be given by Oncology.
--- NOTE | 2019-10-09 23:45 | PN ---
Progress Note, Physician Chief Complaint: Pt denies SOB or chest pain. History of Present Illness: 73 y/o white woman with pmh of Breast cancer stage 3A w/ mets to the spine, peritoneal cavity, colon, and spine, currently off chemoRx with Navelbine, s/p right mastectomy, s/p radiation Rx; bilateral hydronephrosis, s/p fariha ureteral stents; "CHF", now admitted with c/o of weakness of 1-2 weeks duration and abdominal cramping of 1 day duration. She reports that 2 weeks ago she came off chemotherapy under Dr. Edward's supervision and had a CAT scan completed showing R>L effusion. She also reports that she has never needed a walker, but has started to use one since her weakness began. She has been on and off chemo for 2 years now. She reports ALCOCER when walking fast, and bilateral LE edema, but denies LOC, dizziness, head trauma, palpitations, vertigo, tinnitus, chest pain , shortness of breath, orthopnea, PND. - Current Medication List Current Medications: Active Medications Acetaminophen (Tylenol -) 650 mg PO Q6H PRN PRN Reason: Fever Or Pain 1-3 Last Admin: 10/05/19 14:00 Dose: 650 mg Albuterol/Ipratropium (Duoneb -) 1 amp NEB RTID [facility] Last Admin: 10/09/19 20:30 Dose: 1 amp Artificial Tears (Artificial Tears) 1 drop OU BID PRN PRN Reason: DRY EYES Calcitonin (Miacalcin [place] -) 1 spray NS DAILY [facility] Last Admin: 10/09/19 09:22 Dose: 1 spray Carvedilol (Coreg -) 3.125 mg PO BID [facility] Last Admin: 10/09/19 21:47 Dose: 3.125 mg Cholecalciferol (Vitamin D3 -) 3,000 unit PO DAILY [facility] Last Admin: 10/09/19 09:23 Dose: 3,000 unit Ondansetron HCl (Zofran -) 8 mg PO TID [facility] Last Admin: 10/09/19 21:47 Dose: 8 mg Pantoprazole Sodium (Protonix -) 40 mg PO DAILY [facility] Pregabalin (Lyrica -) 75 mg PO BID [facility] Last Admin: 10/09/19 21:47 Dose: 75 mg Tramadol HCl (Ultram -) 50 mg PO Q6H PRN PRN Reason: PAIN LEVEL 6-10 Last Admin: 10/03/19 09:18 Dose: 50 mg - Objective Vital Signs: Vital Signs Temperature 98.1 F 10/09/19 18:00 Pulse Rate 88 10/09/19 18:00 Respiratory Rate 20 10/09/19 18:00 Blood Pressure 107/59 L 10/09/19 18:00 O2 Sat by Pulse Oximetry (%) 96 10/09/19 09:00 Constitutional: Yes: Pallor Eyes: Yes: WNL HENT: Yes: WNL Neck: Yes: WNL Cardiovascular: Yes: S1, S2 Respiratory: Yes: Regular Gastrointestinal: Yes: Other (colostomy bag intact) Genitourinary: No: Anuria Breast(s): Yes: WNL Musculoskeletal: Yes: Muscle Weakness Extremities: Yes: Cool Edema: No Peripheral Pulses WNL: Yes Integumentary: Yes: WNL Neurological: Yes: Alert, Oriented, Weakness Psychiatric: Yes: Alert, Oriented Labs: CBC, BMP 10/09/19 08:55 10/09/19 08:55 INR, PTT INR 1.10 (0.83-1.09) H 10/09/19 08:55 Problem List - Problems (1) Anemia Assessment/Plan: f/u GI and heme workup Code(s): D64.9 - ANEMIA, UNSPECIFIED (2) Metastasis from malignant tumor of breast Assessment/Plan: f/u with hem/oncologist. Code(s): C79.9 - SECONDARY MALIGNANT NEOPLASM OF UNSPECIFIED SITE; C50.919 - MALIGNANT NEOPLASM OF UNSP SITE OF UNSPECIFIED FEMALE BREAST (3) S/P colostomy Code(s): Z93.3 - COLOSTOMY STATUS
[2019-10-10] MEDS: ONDANSETRON 8 MG TABLET (FP) PO SCH ×3 (05:43→21:27)
[2019-10-10] MEDS: ALBUTEROL SO4 2.5/IPRATROPIUM 0.5 INH SOL 3 ML VIAL.NEB. NEB SCH ×3 (07:25→21:27)
[2019-10-10 08:49] LABS: HEMOGLOBIN 8.4 GM/dL (10.7-15.3); MCH 33.9 pg (25.7-33.7); MEAN CELL VOLUME 96.9 fl (80-96); MEAN PLT VOLUME 8.2 fl (7.5-11.1); PLATELET COUNT 265 K/MM3 (134-434); RBC 2.47 M/mm3 (3.60-5.2); RDW 15.8 % (11.6-15.6); WHITE BLOOD COUNT 8.9 K/mm3 (4.0-10.0)
[2019-10-10 09:17] LABS: ALBUMIN 2.2 g/dl (3.4-5.0); BILIRUBIN,TOTAL 0.6 mg/dL (0.2-1); BLOOD UREA NITROGEN 99.4 mg/dL (7-18); CALCIUM 9.5 mg/dL (8.5-10.1); CREATININE 2.8 mg/dL (0.55-1.3); MAGNESIUM 1.7 mg/dL (1.8-2.4); PHOSPHOROUS 5.2 mg/dL (2.5-4.9); POTASSIUM 4.2 mmol/L (3.5-5.1); TOT PROT 6.1 g/dl (6.4-8.2)
[2019-10-10] MEDS ORDERED: PANTOPRAZOLE 40 MG TABLET PO SCH (10:00)
[2019-10-10] MEDS ORDERED: PT OWN MED DRAWER 7, Y5N ONE (10:02)
[2019-10-10] MEDS: CHOLECALCIFEROL (VIT D3) 1,000 UNIT (25 MCG) TABLET PO SCH (11:03)
[2019-10-10] MEDS: CARVEDILOL 3.125 MG TABLET (FP) PO SCH ×2 (11:04→21:25)
[2019-10-10] MEDS: PREGABALIN 75 MG CAPSULE PO SCH ×2 (11:04→21:25)
[2019-10-10] MEDS: CALCITONIN - SALMON SYNTHETIC 200 UNITS/SPRAY NS SCH (11:05)
--- NOTE | 2019-10-10 11:37 | PN ---
Progress Note (short form) - Note Progress Note: PULMONARY Resting in NAD. Pale/chronically ill in appearance. No acute events overnight. VSS/AFEBRILE Gen: NAD at rest Heart: RRR Lung: decreased breath sounds at the bases Abd: soft, nontender, Intact ostomy Ext: no edema CHART REVIEWED A/P Acute on Chronic Diastolic Heart Failure Acute on Chronic Renal Faiulre Bilateral Hydronephrosis Cellulitis Sepsis Metastatic Breast Ca HTN Hyperlipidemia Anemia ? GIB - BD TX PRN - O2 as needed - inhaled bronchodilators - DVT prophylaxis - Awaiting SNF Comfort MITCHELL MD Problem List - Problems (1) Pleural effusion Code(s): J90 - PLEURAL EFFUSION, NOT ELSEWHERE CLASSIFIED (2) Hypotension Code(s): I95.9 - HYPOTENSION, UNSPECIFIED Qualifiers: Hypotension type: other hypotension type Qualified Code(s): I95.89 - Other hypotension (3) Lymphedema Code(s): I89.0 - LYMPHEDEMA, NOT ELSEWHERE CLASSIFIED (4) Anemia Code(s): D64.9 - ANEMIA, UNSPECIFIED (5) 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 (6) Metastatic disease Code(s): C80.1 - MALIGNANT (PRIMARY) NEOPLASM, UNSPECIFIED
--- NOTE | 2019-10-10 11:42 | PN ---
Progress Note, Physician History of Present Illness: 73 y/o F, pmh of Breast cancer stage 3A w/ mets to the spine, peritoneal cavity , colon, spine currently off chem with Navelbine, s/p right mastectomy, s/p radiation, b/l ureteral stents w/ b/l hydro, mild b/l pleural effusion, initially presented c/o of weakness of 1-2 weeks duration and abdominal cramping of 1 day duration. She reports that 2 weeks ago she came off chemo under Dr. Edward's supervision and had a CAT scan completed showing R>L effusion. She also reports that she has never needed a walker but began to use one since her weakness started. She has been on and off chemo for 2 years now. She reports ALCOCER walking fast and bilateral LE edema, but denies LOC, dizziness, head trauma, palpitations, vertigo, tinnitis, chest pain, shortness of breath, orthopnea, PND. - Current Medication List Current Medications: Active Medications Acetaminophen (Tylenol -) 650 mg PO Q6H PRN PRN Reason: Fever Or Pain 1-3 Last Admin: 10/05/19 14:00 Dose: 650 mg Albuterol/Ipratropium (Duoneb -) 1 amp NEB RTID [facility] Last Admin: 10/10/19 07:25 Dose: Not Given Artificial Tears (Artificial Tears) 1 drop OU BID PRN PRN Reason: DRY EYES Calcitonin (Miacalcin [place] -) 1 spray NS DAILY [facility] Last Admin: 10/10/19 11:05 Dose: 1 spray Carvedilol (Coreg -) 3.125 mg PO BID [facility] Last Admin: 10/10/19 11:04 Dose: 3.125 mg Cholecalciferol (Vitamin D3 -) 3,000 unit PO DAILY [facility] Last Admin: 10/10/19 11:03 Dose: 3,000 unit Ondansetron HCl (Zofran -) 8 mg PO TID [facility] Last Admin: 10/10/19 05:43 Dose: 8 mg Pantoprazole Sodium (Protonix -) 40 mg PO DAILY [facility] Last Admin: 10/10/19 11:04 Dose: 40 mg Pregabalin (Lyrica -) 75 mg PO BID [facility] Last Admin: 10/10/19 11:04 Dose: 75 mg Tramadol HCl (Ultram -) 50 mg PO Q6H PRN PRN Reason: PAIN LEVEL 6-10 Last Admin: 10/03/19 09:18 Dose: 50 mg - Objective Vital Signs: Vital Signs Temperature 98.4 F 10/10/19 06:00 Pulse Rate 86 10/10/19 06:00 Respiratory Rate 18 10/10/19 06:00 Blood Pressure 115/61 10/10/19 06:00 O2 Sat by Pulse Oximetry (%) 91 L 10/09/19 21:00 Eyes: Yes: WNL, Conjunctiva Clear, EOM Intact HENT: Yes: WNL, Atraumatic, Normocephalic Neck: Yes: WNL, Supple, Trachea Midline Cardiovascular: Yes: WNL, Regular Rate and Rhythm Respiratory: Yes: WNL, Regular, CTA Bilaterally Gastrointestinal: Yes: WNL, Normal Bowel Sounds Genitourinary: Yes: WNL Musculoskeletal: Yes: WNL Extremities: Yes: WNL Edema: No Integumentary: Yes: WNL Neurological: Yes: WNL, Alert, Oriented ...Motor Strength: WNL Psychiatric: Yes: WNL Labs: CBC, BMP 10/10/19 07:30 10/10/19 07:30 INR, PTT INR 1.10 (0.83-1.09) H 10/09/19 08:55 Assessment/Plan - Problems (1) Acute on chronic systolic (congestive) heart failure Assessment/Plan: ECHO: Severely reduced LVEF (20%); minimal-mild aortic stenosis (may be underestimated due to poor LVEF). On carvedilol 3.125 mg bid; increase dose when and if BP allows. Progressive renal dysfunction precludes use of Entresto, ACEI, ARB, or spironolactone at this time. Consider hydralazine + nitrate if BP allows. F/u BUN/Cr, electrolytes, daily weight, Is and Os. (now s/p cystoscopy and bilateral ureteral stent change). Code(s): I50.23 - ACUTE ON CHRONIC SYSTOLIC (CONGESTIVE) HEART FAILURE (2) Anemia Code(s): D64.9 - ANEMIA, UNSPECIFIED (3) Metastasis from malignant tumor of breast Assessment/Plan: f/u with hem/oncologist. Code(s): C79.9 - SECONDARY MALIGNANT NEOPLASM OF UNSPECIFIED SITE; C50.919 - MALIGNANT NEOPLASM OF UNSP SITE OF UNSPECIFIED FEMALE BREAST (4) Leukocytosis Code(s): D72.829 - ELEVATED WHITE BLOOD CELL COUNT, UNSPECIFIED Qualifiers: Leukocytosis type: unspecified Qualified Code(s): D72.829 - Elevated white blood cell count, unspecified (5) Renal dysfunction Assessment/Plan: s/p cystoscopy, ureteral stent Code(s): N28.9 - DISORDER OF KIDNEY AND URETER, UNSPECIFIED
--- NOTE | 2019-10-10 14:58 | PN ---
Physical Exam: SUBJECTIVE: Patient seen and examined. Pt remains anxious about going to a new place, [facility]. No overnight events. No fevers overnight. Denies f/c/n/v/d/sob OBJECTIVE: Vital Signs Period Temp Pulse Resp BP Sys/Avila Pulse Ox Last 24 Hr 98 F-98.4 F 86-91 18-20 107-118/59-68 91 GENERAL: The patient is awake, alert. Pt is much improved today. LUNGS: Breath sounds equal, clear to auscultation bilaterally, no wheezes, no crackles, HEART: Regular rate and rhythm, S1, S2 without murmur, rub or gallop. ABDOMEN: Soft, nontender, nondistended, normoactive bowel sounds, no guarding, Colostomy bag on the right- draining dark stool. Left nephrostomy tube in place. Castellanos placed back. EXTREMITIES: 2+ pulses, warm, well-perfused, no edema. RUE erythema improved, swelling improved NEUROLOGICAL: Normal speech PSYCH: Normal mood, normal affect. Laboratory Results - last 24 hr 10/10/19 10/10/19 07:30 07:30 WBC 8.9 RBC 2.47 L Hgb 8.4 L Hct 24.0 L MCV 96.9 H MCH 33.9 H MCHC 35.0 RDW 15.8 H Plt Count 265 MPV 8.2 Sodium 136 Potassium 4.2 Chloride 98 Carbon Dioxide 26 Anion Gap 12 BUN 99.4 H Creatinine 2.8 H Est GFR (CKD-EPI)AfAm 18.64 Est GFR (CKD-EPI)NonAf 16.08 Random Glucose 109 H Calcium 9.5 Phosphorus 5.2 H Magnesium 1.7 L Total Bilirubin 0.6 AST 52 H ALT 15 Alkaline Phosphatase 134 H Total Protein 6.1 L Albumin 2.2 L Active Medications Generic Name Dose Route Start Last Admin Trade Name Freq PRN Reason Stop Dose Admin Acetaminophen 650 mg 09/23/19 13:24 10/05/19 14:00 Tylenol - PO 650 mg Q6H PRN Administration Fever Or Pain 1-3 Albuterol/Ipratropium 1 amp 09/23/19 14:00 10/10/19 07:25 Duoneb - NEB Not Given RTID TRICIA Artificial Tears 1 drop 09/23/19 13:24 Artificial Tears OU BID PRN DRY EYES Calcitonin 1 spray 09/24/19 10:00 10/10/19 11:05 Miacalcin [place] - NS 1 spray DAILY TRICIA Administration Carvedilol 3.125 mg 09/23/19 22:00 10/10/19 11:04 Coreg - PO 3.125 mg BID TRICIA Administration Cholecalciferol 3,000 unit 09/24/19 10:00 10/10/19 11:03 Vitamin D3 - PO 3,000 unit DAILY TRICIA Administration Ondansetron HCl 8 mg 10/05/19 06:00 10/10/19 14:13 Zofran - PO 8 mg TID TRICIA Administration Pantoprazole Sodium 40 mg 10/10/19 10:00 10/10/19 11:04 Protonix - PO 40 mg DAILY TRICIA Administration Pregabalin 75 mg 10/04/19 10:00 10/10/19 11:04 Lyrica - PO 75 mg BID TRICIA Administration Tramadol HCl 50 mg 10/02/19 12:29 10/03/19 09:18 Ultram - PO 50 mg Q6H PRN Administration PAIN LEVEL 6-10 ASSESSMENT/PLAN: 73 y/o F, pmh of Breast cancer stage 3A w/ mets to the spine, peritoneal cavity , colon, spine, s/p right mastectomy, s/p radiation, b/l ureteral stents w/ b/l hydro, mild b/l pleural effusion, presents c/o of weakness of 1-2 weeks duration and abdominal cramping of 1 day duration #Blood in stool FOBT+ in colostomy stool Discussed with dr. Cerda, recommended no further intervention due to pt's prognosis and mets to the GI tract Endoscopy in the past shows mets from adeno ca of breast to the JE #ALKESANDER, elevated Cre b/l hydronephrosis s/p ureteral stents Pt accepted to [facility]- d/c planning on hold- pending auth #Febrile 102.1F likely 2/2 to castellanos UTI Now resolved UCx: ESBL likely colonized, resistant to several abx except gentamycin and tigecycline Dr Rhys ribera, monitor pt off abx #Elevated ALP likely 2/2 to metastatic process of bones vs biliary disease #New Systolic CHF Progressive renal dysfunction precludes use of Entresto, ACEI, ARB, or spironolactone at this time. Consider hydralazine + nitrate after pt's renal function as stabilized #Macrocytic Anemia ? sec to CTx vs chronic disease vs marrow infiltration by tumor process. Hb improved Ferrous sulfate #Right pelvic mass US bladder- cystic mass like density right hemipelvis- irregular mass like density if its anterior wall. #Abdominal cramping/Generalized spasm likely 2/2 to dehydration 2/2 Failure to thrive vs Navelbine adverse effect now resolved Diet regular Lyrica Tramdaol 50 #Decreased mood Will career placement services counselor and consider antidepressants if needed #DVTppx hep sq TID FEN monitor lytes Regular diet Dispo: monitor off abx, pending Auth Visit type - Emergency Visit Emergency Visit: Yes ED Registration Date: 09/17/19 Care time: The patient presented to the Emergency Department on the above date and was hospitalized for further evaluation of their emergent condition. - New Patient This patient is new to me today: Yes Date on this admission: 10/15/19 - Critical Care Critical Care patient: No - Discharge Referral Referred to [facility] Med P.C.: No ATTENDING PHYSICIAN STATEMENT I saw and evaluated the patient. I reviewed the resident's note and discussed the case with the resident. I agree with the resident's findings and plan as documented. SUBJECTIVE: OBJECTIVE: ASSESSMENT AND PLAN:
--- NOTE | 2019-10-10 16:06 | PN ---
Teaching Attending Note Name of Resident: Toñito Quintana ATTENDING PHYSICIAN STATEMENT I saw and evaluated the patient. I reviewed the resident's note and discussed the case with the resident. I agree with the resident's findings and plan as documented. SUBJECTIVE: Feels comfortable, No abdominal pain/diarrhea/nausea/vomiting. No complaints. OBJECTIVE: Afebrile, Hemodynamically Stable. Last Vital Signs Temp Pulse Resp BP Pulse Ox 97.8 F 88 18 122/69 93 L 10/10/19 14:58 10/10/19 14:58 10/10/19 14:58 10/10/19 14:58 10/10/19 09:00 Heart - S1, S2, RRR Lungs - decreased air entry at bases. R side portacath. Abdomen - Soft, non-tender. Mild distension. R sided -ostomy working, liquid dark stool. Bowel Sounds normal. - Urine via castellanos clear - no further blood. L nephrostomy - urine clear. Extremities - mild edema, no calf tenderness. RUE erythema/edema improved. Neuro - AAO x 3. Tone/Power normal all extremities. Laboratory Results - last 24 hr 10/10/19 10/10/19 07:30 07:30 WBC 8.9 RBC 2.47 L Hgb 8.4 L Hct 24.0 L MCV 96.9 H MCH 33.9 H MCHC 35.0 RDW 15.8 H Plt Count 265 MPV 8.2 Sodium 136 Potassium 4.2 Chloride 98 Carbon Dioxide 26 Anion Gap 12 BUN 99.4 H Creatinine 2.8 H Est GFR (CKD-EPI)AfAm 18.64 Est GFR (CKD-EPI)NonAf 16.08 Random Glucose 109 H Calcium 9.5 Phosphorus 5.2 H Magnesium 1.7 L Total Bilirubin 0.6 AST 52 H ALT 15 Alkaline Phosphatase 134 H Total Protein 6.1 L Albumin 2.2 L Current Medications Generic Name Dose Route Start Last Admin Trade Name Freq PRN Reason Stop Dose Admin Acetaminophen 650 mg 09/23/19 13:24 10/05/19 14:00 Tylenol - PO 650 mg Q6H PRN Administration Fever Or Pain 1-3 Albuterol/Ipratropium 1 amp 09/23/19 14:00 10/10/19 14:15 Duoneb - NEB Not Given RTID TRICIA Artificial Tears 1 drop 09/23/19 13:24 Artificial Tears OU BID PRN DRY EYES Calcitonin 1 spray 09/24/19 10:00 10/10/19 11:05 Miacalcin [place] - NS 1 spray DAILY TRICIA Administration Carvedilol 3.125 mg 09/23/19 22:00 10/10/19 11:04 Coreg - PO 3.125 mg BID TRICIA Administration Cholecalciferol 3,000 unit 09/24/19 10:00 10/10/19 11:03 Vitamin D3 - PO 3,000 unit DAILY TRICIA Administration Ondansetron HCl 8 mg 10/05/19 06:00 10/10/19 14:13 Zofran - PO 8 mg TID TRICIA Administration Pantoprazole Sodium 40 mg 10/10/19 10:00 10/10/19 11:04 Protonix - PO 40 mg DAILY TRICIA Administration Pregabalin 75 mg 10/04/19 10:00 10/10/19 11:04 Lyrica - PO 75 mg BID TRICIA Administration Tramadol HCl 50 mg 10/02/19 12:29 10/03/19 09:18 Ultram - PO 50 mg Q6H PRN Administration PAIN LEVEL 6-10 Home Medications Medication Instructions Recorded Calcium Citrate/Magnesium/D3 2 tab PO DAILY 05/08/17 [Calcium Citrate Chewable Wafer] Cholecalciferol (Vitamin D3) 3,000 unit PO DAILY 05/08/17 [Vitamin D3] Vitamin B Complex 1 each PO DAILY 05/08/17 Ferrous Sulfate [Feosol] 325 mg PO DAILY 01/15/18 Cyclobenzaprine HCl 10 mg PO Q8H 09/13/19 Ondansetron HCl [Zofran] 4 mg PO Q8H 09/13/19 Albuterol 2.5/Ipratropium 0.5 1 amp NEB RTID amp 10/07/19 [Duoneb -] Carvedilol [Coreg -] 3.125 mg PO BID tablet 10/07/19 Pregabalin [Lyrica -] 75 mg PO BID #60 capsule MDD 150 10/07/19 traMADol HCL [Ultram -] 50 mg PO Q6H PRN tablet MDD 200 10/07/19 ASSESSMENT/PLAN: 73 year old female with history of Metastatic Breast Ca (bone, peritoneal cavity , stomach), s/p mastectomy, s/p small bowel resection/R colectomy/end ileostomy due to mets, last CTx 09/01/19, bilateral ureteral stents due to bilateral hydronephrosis due to compressive metastatic ca, presents with generalized weakness and upper body/torso spasm episode, lasting minutes, resolved spontaneously. She has history of spasm, on flexeril PRN. 1. FOBT positive stool via ileostomy, Hx of nodular mucosa at GEJ and erythematous gastric mucosa on prior EGD Hemodynamically stable. H/H mildly reduced - stable. FOBT positive. Continue Protonix. Evaluated by GI - initially GI recommended proceeding with EGD/Colonoscopy based on determination of the primary team. After my discussion with the patient today, she was willing to undergo the procedures 10/09. Now GI declines performing the procedures, opting for further observation and H/H monitoring for an unspecified time period. Hemodynamically Stable for transfer to SNF. GI follow up as out-patient. 2. Generalized weakness/Muscular Spasm - resolved Possible side-effects of chemotherapy and tumor burden/chronic disease. Poor appetite - nutrition as per diet recommendations. No further spasm episodes. Flexeril PRN. 3. ALEKSANDER - some improvement in Creat, likely CKD 3 now. NM Renal Scan positive for bilateral renal outlet obstruction Hx of bilateral hydronephrosis s/p ureteral stents, now with ALEKSANDER and worsening creatinine POD 17 s/p Cystoscopy with R ureteral stent exchange and L ureteral stent removal by Dr. Josue. Hematuria via castellanos resolved POD 16 s/p L Nephrostomy by IR - clear urine draining, no further blood per nephrostomy. Nephrology and Urology to continue following as out-patient. Failed TOV, will remain with Castellanos 4. Cellulitis RUE - resolved Leukocytosis resolved No DVT on US Duplex Received course of Zosyn/Vanco as per ID - transitioned and completed oral Keflex course 5. Chronic Systolic HF, etiology unclear ?sec to Chemotherapy EF 20%, bibasal effusions, mild LE edema. Coreg started Patient off IV fluids and Lasix. Cardiology to continue following as out-patient. No intervention for low EF ( Lifevest or ICD) recommended by Cardiology at this time. DNR/DNI. 6. Metastatic Breast Ca (Bone - C/L spine, ribs, femoral shafts, sacrum, peritoneal cavity), s/p mastectomy, last CTx 09/01/[address] Chest ?metastatic, no respiratory distress. s/p recent CTx s/p Neupogen Oncology following - unlikely candidate for further chemotherapy. DNR/DNI Will likely transition to comfort measures if clinical status deteriorates. 7. Compression Fracture L4 ?pathologic with significant stenosis L 3/4, L 4/5. Asymptomatic currently. Tramadol prn. Lyrica held by Hematology, reason unclear. Will monitor patient comfort/pain level. Consider Neurosurgery eval as out-patient. 8. Acute on Chronic Anemia ? sec to CTx vs chronic disease vs marrow infiltration by tumor process + Acute Blood Loss (GI source). Iron levels borderline. On Ferrous Sulfate. B12/Folate wnl. Hematuria resolved. H/H 8.4/24 s/p 1 unit PRBCs. Will monitor, especially given blood per ileostomy. 8. Hyperkalemia sec to ALEKSANDER - resolved s/p Lokelma. 9. Urine Cx positive for ESBL - likely colonizer as per ID. Antibiotics discontinued. Castellanos changed. Etiology of fever unclear, now resolved. For observation off abx therapy. Discussed with Dr. Joiner of ID. Prognosis poor. DNR/DNI. SNF as likely bridge to Hospice care given underlying progressive disease with questionable further treatment to be given by Oncology.
[2019-10-10] MEDS ORDERED: MAGNESIUM SULF 50% (8.12 MEQ/2 ML-1 GM VIAL) IVPB ONE (16:16)
--- NOTE | 2019-10-10 17:08 | DS ---
Physical Exam: SUBJECTIVE: Patient seen and examined OBJECTIVE: Vital Signs Period Temp Pulse Resp BP Sys/Avila Pulse Ox Last 24 Hr 97.8 F-98.4 F 63-91 18-20 107-122/49-69 91-93 PHYSICAL EXAM GENERAL: The patient is awake, alert, and fully oriented, in no acute distress. HEAD: Normal with no signs of trauma. EYES: PERRL, extraocular movements intact, sclera anicteric, conjunctiva clear. ENT: Ears normal, nares patent, oropharynx clear without exudates, moist mucous membranes. NECK: Trachea midline, full range of motion, supple. LUNGS: Breath sounds equal, clear to auscultation bilaterally, no wheezes, no crackles, no accessory muscle use. HEART: Regular rate and rhythm, S1, S2 without murmur, rub or gallop. ABDOMEN: Soft, nontender, nondistended, normoactive bowel sounds, no guarding, no rebound, no hepatosplenomegaly, no masses. EXTREMITIES: 2+ pulses, warm, well-perfused, no edema. NEUROLOGICAL: Cranial nerves II through XII grossly intact. Normal speech, gait not observed. PSYCH: Normal mood, normal affect. SKIN: Warm, dry, normal turgor, no rashes or lesions noted. LABS Laboratory Results - last 24 hr 10/10/19 10/10/19 07:30 07:30 WBC 8.9 RBC 2.47 L Hgb 8.4 L Hct 24.0 L MCV 96.9 H MCH 33.9 H MCHC 35.0 RDW 15.8 H Plt Count 265 MPV 8.2 Sodium 136 Potassium 4.2 Chloride 98 Carbon Dioxide 26 Anion Gap 12 BUN 99.4 H Creatinine 2.8 H Est GFR (CKD-EPI)AfAm 18.64 Est GFR (CKD-EPI)NonAf 16.08 Random Glucose 109 H Calcium 9.5 Phosphorus 5.2 H Magnesium 1.7 L Total Bilirubin 0.6 AST 52 H ALT 15 Alkaline Phosphatase 134 H Total Protein 6.1 L Albumin 2.2 L HOSPITAL COURSE: Date of Admission:09/17/19 73 y/o F, pmh of Breast cancer stage 3A w/ mets to the spine, peritoneal cavity , colon, spine, last CT 09/01/19, s/p right mastectomy, s/p radiation, b/l ureteral stents w/ b/l hydro, mild b/l pleural effusion, presents c/o of weakness of 1-2 weeks duration and abdominal cramping of 1 day duration . Pt was treated with cyclobenzaprine for the abdominal spasms. She was currently off navelbine chemo by Dr. Edward, consult was placed and heme/onc was investigating alternative treatments as their treatments have been not as effective thus far. While pt remained in the hospital, her US revealed that her chronic right and left stented ureters were become more dilated, hydronephrosis was worsening. Her Cre and BUN were also rising. Nephro and Urology was consulted. Dr. Mariano Chance replaced her right stent and removed her left completely POD17. She was given a a nephrostomy tube/bag on the left side and castellanos was inserted POD16. Pt's kidney functions began to improve significantly and her castellanos was removed. She began to retain fluids so we had to re insert her castellanos. After discussion with Urology, we planned to discharge the pt home on her nephrostomy bag and her castellanos. Her castellanos was to be removed by Dr. Josue after discharge on her f/u appt in 3-4 days. The nephrostomy bag was to be removed in 3 months by Dann Adams. While she was here, she also developed significant Lymphedema of her right arm which became cellulitic and was started on Keflex then switched to zosyn. She was accepted to [facility] for discharge, however, she spiked a fever overnight and was watched On Abx for 24hrs. Her micro came back positive for ESBL resistant to everything except gentamicin and tigecyline. After discussion with ID, they recommended pt be watched off abx and sent to [facility]. Pt was also evaluated for a GI bleed via her colostomy bag, by GI. She was planned for an EGD/Colonoscopy for 10/09 but GI declined the procedures, opting for further observation of H/H at this juncture. Pt was also noted to have an EF of 20% on Echo, at which point Cardiology evaluated her and considered outpt management to optimize medical therapy. Pt was discharged home on no abx. She was discharged home on new meds, albuterol/ipratropium, carvedilol 3.125, lyrica and tramadol. EKG NSR, possible LAEECHO- EF 20%, which is significantly decreased from prior ECHO in 2018 which was EF normalUS bladder- cystic mass like density right hemipelvis- irregular mass like density if its anterior wall. CXR: Large heart, prominent knob, prominent hilar markings, some atelectic changes. Right jugular lne and tip in the SVCSacrum x rays- marrow nfiltration and metastatic disease CT a/p (09/10)- increased right and developing left pleural effusion, no mets to chest, small amoutn of ascites, severe b/l hydronephrosis w/ ureteral stents, slight increase in size of large right pelvic cystic mass. No acute path in the abdomen or pelvis.MRI: no acute pathology, Left lateral mass of C1, base of C1- pathological bone marrow replacement C-Spine MRI- metastatic deposits multiple- especially in the left lateral C1 mass.L-spine MRI- metastatic disease- interval chronic compression at [id number] CT: Thickening of the ascending and transverse colon, r/o colitis, diverticulosis coli in sigmoid, no diverticulitis, b/l double J ureteral stents , slight increased in b/l hydro, small GB within partially distended GB, small amount of free fluid/ascites in the upper abdomen, previously visualized large cystic masslike density in the right hemipelvis is again seen without interval change, multiple compression fx in lumbar and included lower thoracic spine with mild retropulsion of L4 superior/posterior endplate resulting in mild compromise of the spinal canal. Trace pericardial effusion. Increased right pleural effusion Rt>Lt EMG: axonal sensimotor neuropathy Lasix renal scan- b/l renal outlet obstruction. Left renal function 59%, right renal function 41% Discussed comfort care with pt, she understood and would like comfort care/ DNR/ DNI. Date of Discharge: 10/10/19 Minutes to complete discharge: 40 Discharge Summary Problems reviewed: Yes Reason For Visit: PELVIC PAIN/DEHYDRATION Condition: Good - Instructions Diet, Activity, Other Instructions: You were admitted to the hospital for abdominal cramping and blood in your urine. While you were in the hospital, we evaluated you with lab work, blood work, imaging including an ultrasound and CAT scan of your abdomen and kidneys. We found that your symptoms may have been caused by your cancer. We treated you with medications and your symptoms improved. While in the hospital, your kidney function began to worsen, and we had to do a procedure to help your kidneys function better. The procedure and medications helped your kidneys improve. The procedure was placement of left sided nephrostomy to drain urine. Please follow the below instructions: You will be going to a custodial facility with the nephrostomy bag. Please follow the instruction for the nephrostomy bag: You will need to undergo daily dressing changes for the nephrostomy bag. IF your nephrostomy bag becomes unclean, you can order new bags by calling the phone number listed on the nephrostomy bag. You will need to follow up with Dr. Josue in 3-4 days to determine further management of the nephrostomy bag You will need to also follow up with Dr. Nicole in 2-3 weeks to determine the need to have the nephrostomy tube removed. You also will be going to [facility] with a Castellanos bag, please follow the instructions for the Castellanos; You will need to keep the area around the castellanos clean Empty the Castellanos bag as needed. Please follow up with Dr. Stein within 3-4 days to have the Castellanos bag removed While you were here, you also had some blood in your stool. For this we recommend you to continue taking your Iron pills- ferrous sulfate Medications We also added some medications to your regimen, including medications to improve your breathing and your heart rate. Please take the following medications as instructed: START Albuterol/Ipratropium nebulizer treatments as needed for shortness of breath. START Carvedilol 3.125 mg twice a day by mouth START Lyrica 75 mg Twice a day for pain or cramping in your legs Please take the rest of your medications as prescribed. Follow Up Please follow up with Dr. Josue within 3-4 days to assess our castellanos cathether. Please follow up with Dr. Dann Nicole within 2-3 months to have your nephrostomy tube removed. Please follow up with Dr. Edward within 1 week to determine need/timing of further treatment. Please follow up with Dr. Jonathon Abrams within 1 week to monitor your kidney function. Please follow up with your toll patrolman or the one we have provided, Dr. Benítez within 1 week to determine if you need to start medications for you Heart failure considering your low ejection fraction on your echocardiogram. Please follow up with Dr. Rueda as an outpatient. Please follow up with your primary care physician within 1 week or the primary care physician we have provided for you. Return to the emergency room, if you experience worsening of your symptoms, abdominal pain, back pain, chest pain or any worsening of your condition. Referrals: Matt Rueda DO [Staff Physician] - 1 Week Dann Nicole MD [Staff Physician] - 1 Week Feliciano Benítez MD [Staff Physician] - 1 Week Mariano Stein MD [Staff Physician] - 1 Week Hitesh Edward MD [Staff Physician] - 1 Week Jonathon Land MD [Staff Physician] - 1 Week Disposition: LONG TERM FACILITY - Home Medications Comprehensive Discharge Medication List: Ambulatory Orders Calcium Citrate/Magnesium/D3 [Calcium Citrate Chewable Wafer] 2 tab PO DAILY 08/12 Cholecalciferol (Vitamin D3) [Vitamin D3] 3,000 unit PO DAILY 05/08/17 Vitamin B Complex 1 each PO DAILY 05/08/17 Ferrous Sulfate [Feosol] 325 mg PO DAILY 01/15/18 Cyclobenzaprine HCl 10 mg PO Q8H 09/13/19 Ondansetron HCl [Zofran] 4 mg PO Q8H 09/13/19 Albuterol 2.5/Ipratropium 0.5 [Duoneb -] 1 amp NEB RTID amp 10/07/19 Carvedilol [Coreg -] 3.125 mg PO BID tablet 10/07/19 Pregabalin [Lyrica -] 75 mg PO BID #60 capsule MDD 150 10/07/19 traMADol HCL [Ultram -] 50 mg PO Q6H PRN tablet MDD 200 10/07/19 This patient is new to me today: Yes Date on this admission: 10/15/19 Emergency Visit: Yes ED Registration Date: 09/17/19 Care time: The patient presented to the Emergency Department on the above date and was hospitalized for further evaluation of their emergent condition. Critical Care patient: No - Discharge Referral Referred to [facility] Med P.C.: No ATTENDING PHYSICIAN STATEMENT I saw and evaluated the patient. I reviewed the resident's note and discussed the case with the resident. I agree with the resident's findings and plan as documented. SUBJECTIVE: OBJECTIVE: ASSESSMENT AND PLAN:
--- NOTE | 2019-10-10 17:32 | PN ---
Progress Note, Physician History of Present Illness: Pt seen and examined at bedside. She is awake and alert. She denies shortness of breath. - Current Medication List Current Medications: Active Medications Acetaminophen (Tylenol -) 650 mg PO Q6H PRN PRN Reason: Fever Or Pain 1-3 Last Admin: 10/05/19 14:00 Dose: 650 mg Albuterol/Ipratropium (Duoneb -) 1 amp NEB RTID [facility] Last Admin: 10/10/19 14:15 Dose: Not Given Artificial Tears (Artificial Tears) 1 drop OU BID PRN PRN Reason: DRY EYES Calcitonin (Miacalcin [place] -) 1 spray NS DAILY [facility] Last Admin: 10/10/19 11:05 Dose: 1 spray Carvedilol (Coreg -) 3.125 mg PO BID [facility] Last Admin: 10/10/19 11:04 Dose: 3.125 mg Cholecalciferol (Vitamin D3 -) 3,000 unit PO DAILY [facility] Last Admin: 10/10/19 11:03 Dose: 3,000 unit Ondansetron HCl (Zofran -) 8 mg PO TID [facility] Last Admin: 10/10/19 14:13 Dose: 8 mg Pantoprazole Sodium (Protonix -) 40 mg PO DAILY [facility] Last Admin: 10/10/19 11:04 Dose: 40 mg Pregabalin (Lyrica -) 75 mg PO BID [facility] Last Admin: 10/10/19 11:04 Dose: 75 mg Tramadol HCl (Ultram -) 50 mg PO Q6H PRN PRN Reason: PAIN LEVEL 6-10 Last Admin: 10/03/19 09:18 Dose: 50 mg - Objective Vital Signs: Vital Signs Temperature 97.8 F 10/10/19 14:58 Pulse Rate 88 10/10/19 14:58 Respiratory Rate 18 10/10/19 14:58 Blood Pressure 122/69 10/10/19 14:58 O2 Sat by Pulse Oximetry (%) 93 L 10/10/19 09:00 Constitutional: Yes: Calm Eyes: Yes: Conjunctiva Clear HENT: Yes: Atraumatic Neck: Yes: Supple Cardiovascular: Yes: S1, S2 Respiratory: Yes: CTA Bilaterally Gastrointestinal: Yes: Soft Genitourinary: Yes: Ba[place] Present, Other (nephrostomy tube) Edema: No Neurological: Yes: Oriented Psychiatric: Yes: Oriented Labs: CBC, BMP 10/10/19 07:30 10/10/19 07:30 INR, PTT INR 1.10 (0.83-1.09) H 10/09/19 08:55 Problem List - Problems (1) Renal dysfunction Code(s): N28.9 - DISORDER OF KIDNEY AND URETER, UNSPECIFIED (2) Hydronephrosis Code(s): N13.30 - UNSPECIFIED HYDRONEPHROSIS Qualifiers: Hydronephrosis type: unspecified Qualified Code(s): N13.30 - Unspecified hydronephrosis Assessment/Plan Current Medications Generic Name Dose Route Start Last Admin Trade Name Freq PRN Reason Stop Dose Admin Acetaminophen 650 mg 09/23/19 13:24 10/05/19 14:00 Tylenol - PO 650 mg Q6H PRN Administration Fever Or Pain 1-3 Albuterol/Ipratropium 1 amp 09/23/19 14:00 10/10/19 14:15 Duoneb - NEB Not Given RTID TRICIA Artificial Tears 1 drop 09/23/19 13:24 Artificial Tears OU BID PRN DRY EYES Calcitonin 1 spray 09/24/19 10:00 10/10/19 11:05 Miacalcin [place] - NS 1 spray DAILY TRICIA Administration Carvedilol 3.125 mg 09/23/19 22:00 10/10/19 11:04 Coreg - PO 3.125 mg BID TRICIA Administration Cholecalciferol 3,000 unit 09/24/19 10:00 10/10/19 11:03 Vitamin D3 - PO 3,000 unit DAILY TRICIA Administration Ondansetron HCl 8 mg 10/05/19 06:00 10/10/19 14:13 Zofran - PO 8 mg TID TRICIA Administration Pantoprazole Sodium 40 mg 10/10/19 10:00 10/10/19 11:04 Protonix - PO 40 mg DAILY TRICIA Administration Pregabalin 75 mg 10/04/19 10:00 10/10/19 11:04 Lyrica - PO 75 mg BID TRICIA Administration Tramadol HCl 50 mg 10/02/19 12:29 10/03/19 09:18 Ultram - PO 50 mg Q6H PRN Administration PAIN LEVEL 6-10 Impression 1. CKD 2. leukopenia 3. obstructive uropathy with bilateral hydro 4. breast cancer with mets 5. HTN 6. hyperlipidemia 7. anemia 8. ALEKSANDER 9. CHF Plan - monitor renal function - monitor output - encourage po intake - gentle hydration - avoid nsaids Dr Land
--- NOTE | 2019-10-10 19:55 | PN ---
Progress Note (short form) - Note Progress Note: Patient seen and examined instructions given For discharge Follow up in future , hopefully to resume therapy.
[2019-10-10 21:26] VITALS: BP 127/67; PULSE 89; TEMP 98.7
== END 2019-10-10 21:56 | DRG 987 ==
LOC: JER 12:47 → JERBED 19:06 → J5S 23:03 → J4S 09-15 18:44 → OBSVTOIN 09-17 10:05 → J6S 09-17 22:55
PROVIDERS: ADMIT Internal Medicine
PROC: BT1DZZZ Fluoroscopy of Right Kidney, Ureter and Bladder (ICD-10-PCS; 2019-09-23)
PROC: 0T768DZ Dilation of Right Ureter with Intraluminal Device, Via Natural or Artificial Opening Endoscopic (ICD-10-PCS; principal; 2019-09-23 12:00)
PROC: 0TP98DZ Removal of Intraluminal Device from Ureter, Via Natural or Artificial Opening Endoscopic (ICD-10-PCS; 2019-09-23 12:00)
PROC: 0T9130Z Drainage of Left Kidney with Drainage Device, Percutaneous Approach (ICD-10-PCS; 2019-09-24)
PROC: 30233N1 Transfusion of Nonautologous Red Blood Cells into Peripheral Vein, Percutaneous Approach (ICD-10-PCS; 2019-09-25)
DX: C78.6 Secondary malignant neoplasm of retroperitoneum and peritoneum (principal); I50.33 Acute on chronic diastolic (congestive) heart failure; A41.9 Sepsis, unspecified organism; C79.51 Secondary malignant neoplasm of bone; N13.30 Unspecified hydronephrosis; J90 Pleural effusion, not elsewhere classified; N17.9 Acute kidney failure, unspecified; L03.113 Cellulitis of right upper limb; D62 Acute posthemorrhagic anemia; N39.0 Urinary tract infection, site not specified; M84.48XA Pathological fracture, other site, initial encounter for fracture; T83.89XA Other specified complication of genitourinary prosthetic devices, implants and grafts, initial encounter; C50.919 Malignant neoplasm of unspecified site of unspecified female breast; I95.9 Hypotension, unspecified; D72.819 Decreased white blood cell count, unspecified; Y83.9 Surgical procedure, unspecified as the cause of abnormal reaction of the patient, or of later complication, without mention of misadventure at the time of the procedure; I89.0 Lymphedema, not elsewhere classified; E86.0 Dehydration; E87.5 Hyperkalemia; E78.5 Hyperlipidemia, unspecified; R62.7 Adult failure to thrive; N18.3 Chronic kidney disease, stage 3 (moderate); D72.829 Elevated white blood cell count, unspecified; R31.9 Hematuria, unspecified; B96.1 Klebsiella pneumoniae [K. pneumoniae] as the cause of diseases classified elsewhere; K52.9 Noninfective gastroenteritis and colitis, unspecified; E88.09 Other disorders of plasma-protein metabolism, not elsewhere classified; E83.39 Other disorders of phosphorus metabolism; R74.0 Nonspecific elevation of levels of transaminase and lactic acid dehydrogenase [LDH]; D64.9 Anemia, unspecified
CPT/HCPCS: 36415; 36430; 36511; 50432; 70551-TC; 71045-TC-FY; 72050-TC-FY; 72141-TC; 72148-TC; 72220-TC-FY; 73552-TC-LT-FY; 73552-TC-RT-FY; 74176-TC; 76000-TC-FY; 76705-TC; 76775-TC; 76856-TC; 78708-TC; 80048; 80053; 81003; 82272; 82550; 82565; 82607; 82728; 82746; 82803; 82962; 82977; 83540; 83550; 83605; 83735; 83880; 83930; 83935; 84100; 84300; 84443; 84484; 85025; 85027; 85044; 85610; 85651; 85730; 86140; 86850; 86900; 86901; 86922; 87040; 87045; 87046; 87086; 87186; 87205; 87324; 87449; 87804; 93005; 93010; 93306-TC; 93971; 94010; 94640; 94760; 95860-TC; 97116-GP; 97162-GP; 99284-25; A9562; C1729; C1769; G0378; G0480; J0131; J1447; J1644; J7030; P9038; P9058

== ENCOUNTER 2019-10-15 12:17 | Inpatient (IN) | payer OTHER ==
[2019-10-15 12:40] VITALS: BMI 22.3
[2019-10-15] MEDS ORDERED: SODIUM CHLORIDE 1,769 ML IV ONE (12:46)
[2019-10-15 13:04] LABS: BASO % 0.5 % (0-2.0); EOS % 0.4 % (0-4.5); HEMATOCRIT 21.4 % (32.4-45.2); HEMOGLOBIN 7.2 GM/dL (10.7-15.3); LYMPH % 4.7 % (8-40); MCH 33.4 pg (25.7-33.7); MCHC 33.8 g/dl (32.0-36.0); MEAN CELL VOLUME 98.7 fl (80-96); MEAN PLT VOLUME 8.9 fl (7.5-11.1); MONO % 6.4 % (3.8-10.2); PLATELET COUNT 234 K/MM3 (134-434); RBC 2.17 M/mm3 (3.60-5.2); RDW 16.5 % (11.6-15.6); WHITE BLOOD COUNT 13.8 K/mm3 (4.0-10.0)
--- NOTE | 2019-10-15 13:06 | PDOC ---
History of Present Illness - General Chief Complaint: SIRS, Suspected/Possible Stated Complaint: SEPTIC Time Seen by Provider: 10/15/19 12:46 - History of Present Illness Initial Comments: 10/15/19 13:06 73 year old female with history of Metastatic Breast Ca (bone, peritoneal cavity , stomach), s/p mastectomy, s/p small bowel resection/R colectomy/end ileostomy due to mets, bilateral ureteral stents due to bilateral hydronephrosis due to compressive metastatic ca per chart, active UGIB presents from [facility] for AMS and lethargy. Pt non communicative and alone. In ED, low grade temperature at 100F, blood pressure soft at 92/60 (map 70). PE: GEN: altered and lethargic HEENT: PERRLA, slightly dry mucous membrane NECK: No JVD CHEST: reduced at the bases HEART: RRR but no murmur, rubs or gallop ABdomen: +BS, end ileostomy with normal color stool and no tenderness around edges, no distension, L nephrostomy with tenderness on palpation Extremities: 2+ pulses, 1+ edema on the R lower extremity more than left Assessment: based on HPI and PE, DDX include: sepsis with AMS 2/2 infection ( poss UTI) vs metabolic source Vs active bleeding vs mets AMS from cardiac vs neurologic 10/15/19 13:07 Plan: CBC, CMP, urine cultures ( castellanos and nephrostomy), blood cultures, CXR NS gentle to keep map >65, will wait for Cr before starting antibiotics Hx of ESBL Klebsiella Pneumonia 10/15/19 13:15 CBC WBC 13.8 K/mm3 (4.0-10.0) H 10/15/19 12:24 RBC 2.17 M/mm3 (3.60-5.2) L 10/15/19 12:24 Hgb 7.2 GM/dL (10.7-15.3) L 10/15/19 12:24 Hct 21.4 % (32.4-45.2) L 10/15/19 12:24 MCV 98.7 fl (80-96) H 10/15/19 12:24 MCH 33.4 pg (25.7-33.7) 10/15/19 12:24 MCHC 33.8 g/dl (32.0-36.0) 10/15/19 12:24 RDW 16.5 % (11.6-15.6) H 10/15/19 12:24 Plt Count 234 K/MM3 (134-434) 10/15/19 12:24 MPV 8.9 fl (7.5-11.1) 10/15/19 12:24 Absolute Neuts (auto) 12.2 K/mm3 (1.5-8.0) H 10/15/19 12:24 Neutrophils % 88.0 % (42.8-82.8) H 10/15/19 12:24 Lymphocytes % 4.7 % (8-40) L D 10/15/19 12:24 Monocytes % 6.4 % (3.8-10.2) 10/15/19 12:24 Eosinophils % 0.4 % (0-4.5) 10/15/19 12:24 Basophils % 0.5 % (0-2.0) 10/15/19 12:24 Nucleated RBC % 0 % (0-0) 10/15/19 12:24 Leukocytosis and dropped in Hb to 7.2/21.4 Lactic Acid 1.0 10/15/19 13:45 call from chemistry: troponin I 1.18 EKG CXR no acute pathology 10/15/19 13:51 CMP Sodium 136 mmol/L (136-145) 10/15/19 12:24 Potassium 4.8 mmol/L (3.5-5.1) 10/15/19 12:24 Chloride 98 mmol/L (98-107) 10/15/19 12:24 Carbon Dioxide 27 mmol/L (21-32) 10/15/19 12:24 Anion Gap 11 MMOL/L (8-16) 10/15/19 12:24 BUN 130.1 mg/dL (7-18) H* 10/15/19 12:24 Creatinine 3.7 mg/dL (0.55-1.3) H 10/15/19 12:24 Est GFR (CKD-EPI)AfAm 13.31 10/15/19 12:24 Est GFR (CKD-EPI)NonAf 11.48 10/15/19 12:24 Random Glucose 94 mg/dL (74-106) 10/15/19 12:24 Lactic Acid 1.0 mmol/L (0.4-2.0) 10/15/19 12:24 Calcium 10.6 mg/dL (8.5-10.1) H 10/15/19 12:24 Total Bilirubin 0.9 mg/dL (0.2-1) 10/15/19 12:24 AST 73 U/L (15-37) H 10/15/19 12:24 ALT 15 U/L (13-61) 10/15/19 12:24 Alkaline Phosphatase 111 U/L (45-117) 10/15/19 12:24 Troponin I 1.18 ng/ml (0.00-0.05) H* 10/15/19 12:24 B-Natriuretic Peptide 2335.5 pg/ml (5-125) H 10/15/19 12:24 Total Protein 6.7 g/dl (6.4-8.2) 10/15/19 12:24 Albumin 2.3 g/dl (3.4-5.0) L 10/15/19 12:24 BUN/Cr increased to 130.1/3.7 from 99.4/2.8 BNP 2335.5 dropped from >5k from last admission EKG No Significant ST /TWI noted spoke with Cardio Dr Cadena: ACS unlikely spoke with Renal Dr Land: 08/28 NS @42, renal/bladder US 10/15/19 13:54 pend UAs then will reach out to ID for antibiotic recommendation Prior history of ESBL Klebsielle Pneumonia sensitive to gentamycin and tygecycline 100mg dose of tygecycline administered Pt also contact precautions 10/15/19 15:06 microblog sent 10/15/19 15:34 Pt signed out to Dr Queen 10/15/19 15:58 Dr Echeverria and I spoke with daughter. Daughter admits that patient has been suffering for a while and understand that her prognosis is poor; as a result she agrees to continue hydration and pain control. Will reach out to Dr Edward 10/15/19 16:[address] Echeverria, we will repeat cardiac enzymes, EKG and Type&screen for now 10/15/19 16:20 Past History - Past Medical History Allergies/Adverse Reactions: Allergies Allergy/AdvReac Type Severity Reaction Status Date / Time No Known Drug Allergies Allergy Verified 09/13/19 12:58 Home Medications: Ambulatory Orders Calcium Citrate/Magnesium/D3 [Calcium Citrate Chewable Wafer] 2 tab PO DAILY 08/12 Cholecalciferol (Vitamin D3) [Vitamin D3] 3,000 unit PO DAILY 05/08/17 Ferrous Sulfate [Feosol] 325 mg PO DAILY 01/15/18 Cyclobenzaprine HCl 10 mg PO Q8H 09/13/19 Ondansetron HCl [Zofran] 8 mg PO Q8H 09/13/19 Albuterol 2.5/Ipratropium 0.5 [Duoneb -] 1 amp NEB RTID amp 10/07/19 Carvedilol [Coreg -] 3.125 mg PO BID tablet 10/07/19 Pregabalin [Lyrica -] 75 mg PO BID #60 capsule MDD 150 10/07/19 traMADol HCL [Ultram -] 50 mg PO Q6H PRN tablet MDD 200 10/07/19 Magnesium Citrate 800 mg PO DAILY 10/15/19 Magnesium Oxide [Magnesium] 400 mg PO DAILY 10/15/19 Vit B Comp/C/Folic/Iron/Vit E [Vitamin B Complex Tablet] 1 each PO DAILY Anemia: Yes Asthma: No Cancer: Yes (right breast, lymph nodes, mets to large intestines,bone) Cardiac Disorders: No CVA: No COPD: No CHF: No Dementia: No Diabetes: No GI Disorders: Yes (DIVERTICULOSIS, COLON ADENOMA) Disorders: Yes (LYMPH NODES COMPRESSED TUBES) HTN: No Hypercholesterolemia: No Liver Disease: No Seizures: No Thyroid Disease: No - Surgical History Abdominal Surgery: Yes (RT HEMICOLECTOMY WITH ILEOSTOMY 2014 WITH OTHER PROCEDURES) Appendectomy: No Cardiac Surgery: No Cholecystectomy: No Lung Surgery: No Neurologic Surgery: No Orthopedic Surgery: No - Immunization History Immunization Up to Date: Yes - Psycho Social/Smoking Cessation Hx Smoking Status: No Smoking History: Smoker current status UNK Have you smoked in the past 12 months: No Number of Cigarettes Smoked Daily: 0 Information on smoking cessation initiated: No Hx Alcohol Use: No Drug/Substance Use Hx: No Substance Use Type: None Hx Substance Use Treatment: No Review of Systems - Review of Systems Able to Perform ROS?: No (pt is altered/nonverbal) Is the patient limited Kiswahili proficient: No *Physical Exam - Vital Signs Last Vital Signs Temp Pulse Resp BP Pulse Ox 100 F H 85 20 92/55 L 97 10/15/19 12:37 10/15/19 12:37 10/15/19 12:37 10/15/19 12:37 10/15/19 12:37 - Physical Exam General Appearance: No: Apparent Distress HEENT: positive: IRINA Neck: positive: Supple Respiratory/Chest: positive: Decreased Breath Sounds Cardiovascular: positive: Regular Rhythm, Regular Rate, S1, S2. negative: JVD Gastrointestinal/Abdominal: positive: Normal Bowel Sounds, Flat Rectal Exam: positive: deferred Musculoskeletal: positive: CVA Tenderness (L) Integumentary: positive: Dry, Warm Neurologic: positive: Confused ED Treatment Course - LABORATORY CBC & Chemistry Diagram: 10/15/19 12:24 10/15/19 12:24 Discharge - Discharge Information Problems reviewed: Yes Clinical Impression/Diagnosis: Sepsis Qualifiers: Sepsis type: sepsis due to unspecified organism Sepsis acute organ dysfunction status: unspecified Qualified Code(s): A41.9 - Sepsis, unspecified organism Condition: Guarded - Admission Yes - Follow up/Referral - Patient Discharge Instructions - Post Discharge Activity
[2019-10-15 13:09] LABS: VENOUS PC02 48.1 mmHg (38-52); VENOUS PH 7.38 (7.31-7.41); VENOUS PO2 < 49 mmHg (28-48)
[2019-10-15 13:45] LABS: ALBUMIN 2.3 g/dl (3.4-5.0); BILIRUBIN,TOTAL 0.9 mg/dL (0.2-1); CALCIUM 10.6 mg/dL (8.5-10.1); CREATININE 3.7 mg/dL (0.55-1.3); INR 1.05 (0.83-1.09); POTASSIUM 4.8 mmol/L (3.5-5.1); PROTHROMBIN TIME (PATIENT) 12.4 SEC (9.7-13.0); TOT PROT 6.7 g/dl (6.4-8.2)
[2019-10-15 13:48] LABS: ACTIVATED PTT 22.9 SECONDS (25.2-36.5); BLOOD UREA NITROGEN 130.1 mg/dL (7-18)
[2019-10-15 14:08] LABS: N-TERMINAL BNP 2335.5 pg/ml (5-125)
[2019-10-15] MEDS ORDERED: SODIUM CHLORIDE 500 ML IV STA (14:24)
[2019-10-15] MEDS ORDERED: SODIUM CHLORIDE 0.45% 1,000 ML IV SCH (15:00)
--- NOTE | 2019-10-15 15:00 | PDOC ---
Documentation entered by Alicia Lira SCRIBE, acting as scribe for Rajiv Alex MD. Rajiv Alex MD: This documentation has been prepared by the Pankaj mesa Sammi, SCRIBE, under my direction and personally reviewed by me in its entirety. I confirm that the documentation accurately reflects all work, treatment, procedures, and medical decision making performed by me. Attending Attestation - Resident Resident Name: Armin Lemuselle - ED Attending Attestation I have performed the following: I have examined & evaluated the patient, The case was reviewed & discussed with the resident, I agree w/resident's findings & plan, Exceptions are as noted - HPI HPI: 10/15/19 12:54 The patient is a 73 year old female, with PMH of right breast CA (currently undergoing chemo), anemia, colon CA (s/p colostomy bag), diverticulosis, and lymph nodes compressed tubes, who presents from [facility] to the emergency department for evaluation of altered mental status and increased lethargy. MD states the patient is normally conversant at baseline. Allergies: NKDA Surgical History: Colostomy bag PCP: Dr. Rubin ONC: Dr. Edward - Physicial Exam PE: 10/15/19 18:15 Vitals: Triage Vital signs reviewed General Appearance: Ill-appearing Head: Atraumatic, Cardiac: Regular rate and rhythym, Lungs: Clear to auscultation bilateral, good air movement bilaterally, Abdomen: Soft, non distended, normal bowel sounds, non tender to palpation Extremities: Full range of motion to all extremities, no cyanosis, clubbing, or edema Skin: Warm and dry, no rashes or lesions, no rash, no petechiae Psych: Normal mood, normal affect - Medical Decision Making 10/15/19 18:16 73 years old with advanced disease presents with sepsis Goals of care discussed at this time comfort measures only We will admit to medicine for further management. Heart Score/ECG Review - ECG Impressions Comment:: 10/15/19 18:17 EKG performed at 1419 demonstrates normal sinus rhythm no ST elevations interpreted by me
[2019-10-15] MEDS ORDERED: TIGECYCLINE 100 MG in DEXTROSE 5%-WATER - 100 ML IVPB ONE (15:02)
[2019-10-15 16:07] LABS: EPI CELLS 14.8 /HPF (0-5/HPF); HYALINE CASTS 46 /lpf (0-8); URINE APPEARANCE TURBID; URINE BACTERIA 7.9 /hpf (NEGATIVE); URINE BILIRUBIN NEGATIVE (NEGATIVE); URINE COLOR YELLOW; URINE GLUCOSE (UA) NEGATIVE (NEGATIVE); URINE KETONE NEGATIVE (NEGATIVE); URINE LEUK ESTERASE 2+ (NEGATIVE); URINE NITRITE NEGATIVE (NEGATIVE); URINE PROTEIN 1+ (NEGATIVE); URINE RBC 3 /hpf (0-4); URINE UROBILINOGEN 0.2 mg/dL (0.2-1.0); URINE WBC 37 /hpf (0-5)
[2019-10-15 17:20] LABS: URINE CRYSTALS MODERATE URIC ACID /hpf
--- NOTE | 2019-10-15 18:17 | CON.CARD ---
Consult Consult Specialty:: cardiology Reason for Consultation:: elevated TNI - History of Present Illness Chief Complaint: Pt opens eyes; does not respond to verbal queries; occasional says a word (unintelligible). Niece (and health care proxy), Diana, is at bedside. History of Present Illness: The patient is a 73 year old white female, with PMH of right breast CA ( currently undergoing chemo), anemia, colon CA (s/p colostomy bag), renal dysfunction, diverticulosis, who presents from [facility] to the emergency department for evaluation of altered mental status and increased lethargy. IA states the patient is normally conversant at baseline. - History Source History Provided By: Medical Record Limitations to Obtaining History: Other (lethargic; unintelligible) - Past Medical History MOSS GATHERER: Yes: Peripheral Neuropathy Cardio/Vascular: Yes: CHF (severely reduced LVEF), HTN Renal/: Yes: Renal Failure, Renal Inusuff, UTI (hydronephrosis), Other ( obstructive uropathy) Reproductive: Yes: Postmenopausal ...: No - Past Surgical History Past Surgical History: Yes: Colostomy Additional Surgical History: ureteral stents; nephrostomy tube - Alcohol/Substance Use Hx Alcohol Use: No - Smoking History Smoking history: Smoker current status UNK Have you smoked in the past 12 months: No Aproximately how many cigarettes per day: 0 Home Medications - Allergies Allergies/Adverse Reactions: Allergies Allergy/AdvReac Type Severity Reaction Status Date / Time No Known Drug Allergies Allergy Verified 09/13/19 12:58 - Home Medications Home Medications: Ambulatory Orders Calcium Citrate/Magnesium/D3 [Calcium Citrate Chewable Wafer] 2 tab PO DAILY 08/12 Cholecalciferol (Vitamin D3) [Vitamin D3] 3,000 unit PO DAILY 05/08/17 Ferrous Sulfate [Feosol] 325 mg PO DAILY 01/15/18 Cyclobenzaprine HCl 10 mg PO Q8H 09/13/19 Ondansetron HCl [Zofran] 8 mg PO Q8H 09/13/19 Albuterol 2.5/Ipratropium 0.5 [Duoneb -] 1 amp NEB RTID amp 10/07/19 Carvedilol [Coreg -] 3.125 mg PO BID tablet 10/07/19 Pregabalin [Lyrica -] 75 mg PO BID #60 capsule MDD 150 10/07/19 traMADol HCL [Ultram -] 50 mg PO Q6H PRN tablet MDD 200 10/07/19 Magnesium Citrate 800 mg PO DAILY 10/15/19 Magnesium Oxide [Magnesium] 400 mg PO DAILY 10/15/19 Vit B Comp/C/Folic/Iron/Vit E [Vitamin B Complex Tablet] 1 each PO DAILY Family Medical History Family History: Unable to Obtain Review of Systems Unable to obtain ROS, reason: pt is uncommunicative - Risk Factors Known Risk Factors: Yes: Age, Physical Inactivity, Other (severe systolic CHF) Vital Signs: Vital Signs Temperature 100 F H 10/15/19 12:37 Pulse Rate 85 10/15/19 12:46 Respiratory Rate 20 10/15/19 12:37 Blood Pressure 93/61 10/15/19 12:46 O2 Sat by Pulse Oximetry (%) 100 10/15/19 12:46 Constitutional: Yes: Thin Eyes: Yes: WNL HENT: Yes: WNL Neck: Yes: WNL Respiratory: Yes: Diminished Gastrointestinal: Yes: Soft, Other (colostomy bag) JVD: Yes Carotid Bruit: No PMI: Displaced Heart Sounds: Yes: S1, S2 Murmur: Yes: Systolic Murmur, Grade 2 Musculoskeletal: Yes: Muscle Weakness Extremities: Yes: Cool Edema: No Peripheral Pulses WNL: No Peripheral Pulses: 1+ Left Doralis Pedis, 1+ Right Dorsalis Pedis Neurological: Yes: Confusion, Weakness Psychiatric: Yes: Other - Other Data Labs, Other Data: CBC, BMP 10/15/19 12:24 10/15/19 12:24 INR, PTT INR 1.05 (0.83-1.09) 10/15/19 12:24 Troponin, BNP 10/15/19 12:24 Troponin I 1.18 H* B-Natriuretic Peptide 2335.5 H Troponin, BNP 10/15/19 12:24 Troponin I 1.18 H* B-Natriuretic Peptide 2335.5 H Echo: Report Reviewed Ejection Fraction %: LVEF < 40 % Imaging - Results Chest X-ray: Image Reviewed EKG: Image Reviewed Problem List - Problems (1) Acute on chronic systolic CHF (congestive heart failure) Assessment/Plan: Relatively hypotensive, which makes it unable to restart beta blockers, ACEI, or spironolactone. Discussed pt's wishes with her niece, Diana (health-care proxy), who says she does not want "heroics". Refuses blood transfusion. Pt for comfort care. Code(s): I50.23 - ACUTE ON CHRONIC SYSTOLIC (CONGESTIVE) HEART FAILURE (2) ALEKSANDER (acute kidney injury) Code(s): N17.9 - ACUTE KIDNEY FAILURE, UNSPECIFIED (3) Sepsis Code(s): A41.9 - SEPSIS, UNSPECIFIED ORGANISM Qualifiers: Sepsis type: sepsis due to unspecified organism Sepsis acute organ dysfunction status: unspecified Qualified Code(s): A41.9 - Sepsis, unspecified organism (4) S/P colostomy Code(s): Z93.3 - COLOSTOMY STATUS (5) Anemia Code(s): D64.9 - ANEMIA, UNSPECIFIED (6) 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 (7) Acute on chronic renal failure Code(s): N17.9 - ACUTE KIDNEY FAILURE, UNSPECIFIED; N18.9 - CHRONIC KIDNEY DISEASE, UNSPECIFIED (8) UTI (urinary tract infection) Code(s): N39.0 - URINARY TRACT INFECTION, SITE NOT SPECIFIED (9) Elevated troponin Assessment/Plan: TNI 1.1; normal CPK. EKG: normal sinus rhythm; no STT changes. Multiple contributers to demand ischemia, including sepsis, CHF, anemia, hypotension. Code(s): R79.89 - OTHER SPECIFIED ABNORMAL FINDINGS OF BLOOD CHEMISTRY
[2019-10-15 21:21] LABS: URINE APPEARANCE TURBID; URINE BILIRUBIN NEGATIVE (NEGATIVE); URINE COLOR DK YELLOW; URINE GLUCOSE (UA) NEGATIVE (NEGATIVE); URINE KETONE TRACE (NEGATIVE)
[2019-10-15 21:22] LABS: EPI CELLS 216.2 /HPF (0-5/HPF); HYALINE CASTS 87.71 /lpf (0-8); PH,URINE 5.5 (5.0-8.0); URINE BACTERIA 29.3 /hpf (NEGATIVE); URINE LEUK ESTERASE NEGATIVE (NEGATIVE); URINE NITRITE POSITIVE (NEGATIVE); URINE PROTEIN 100 (NEGATIVE); URINE RBC 13.1 /hpf (0-4); URINE UROBILINOGEN 0.2 mg/dL (0.2-1.0); URINE WBC 1568.8 /hpf (0-5)
[2019-10-15] MEDS ORDERED: PANTOPRAZOLE SODIUM 40 MG VIAL IVPUSH SCH (22:00)
--- NOTE | 2019-10-15 22:45 | HP ---
73 y/o F h/o breast cancer stage 3A w/ mets to the spine, peritoneal cavity, colon, spine, s/p right mastectomy, s/p radiation, b/l ureteral stents w/ b/l hydro, mild b/l pleural effusion, HFrEF, HTN, L spine compression fractures, recent history of UGIB (managed w/ PRN transfusions, not scoped) presents with profound lethargy that has progressively worsened since Sunday. Patient's daughter endorses patient started to become really tired appearing, lethargic and stopped talking, eventually she was seen at [facility] slopped over in a wheelchair unresponsive. Patient was found to have "pus-like" urine when UA sample was taken. Has a history of ESBL UTI, sensitive to Tegacycline and gentamicin, was given 1 dose of Tigecycline in ED to cover for UTI. Patient's daughter also endorsed black stool from colostomy bag since discharge last week , and was told by GI doctor that patient should only get supportive care and no further EGD/colonoscopy was recommended. Patient's daughter has endorsed that patient expressed to her she did not want any invasive measures come time to end of life care, and opted for DNR/DNI. Recent Travel: denies PAST MEDICAL HISTORY: as above PAST SURGICAL HISTORY: hemicolectomy s/p colostomy Social History: denies Smoking: denies Alcohol: denies Drugs: denies Allergies No Known Drug Allergies Allergy (Verified 09/13/19 12:58) HOME MEDICATIONS: Home Medications Medication Instructions Recorded Calcium Citrate/Magnesium/D3 2 tab PO DAILY 05/08/17 [Calcium Citrate Chewable Wafer] Cholecalciferol (Vitamin D3) 3,000 unit PO DAILY 05/08/17 [Vitamin D3] Ferrous Sulfate [Feosol] 325 mg PO DAILY 01/15/18 Cyclobenzaprine HCl 10 mg PO Q8H 09/13/19 Ondansetron HCl [Zofran] 8 mg PO Q8H 09/13/19 Albuterol 2.5/Ipratropium 0.5 1 amp NEB RTID amp 10/07/19 [Duoneb -] Carvedilol [Coreg -] 3.125 mg PO BID tablet 10/07/19 Pregabalin [Lyrica -] 75 mg PO BID #60 capsule MDD 150 10/07/19 traMADol HCL [Ultram -] 50 mg PO Q6H PRN tablet MDD 200 10/07/19 Magnesium Citrate 800 mg PO DAILY 10/15/19 Magnesium Oxide [Magnesium] 400 mg PO DAILY 10/15/19 Vit B Comp/C/Folic/Iron/Vit E 1 each PO DAILY 10/15/19 [Vitamin B Complex Tablet] REVIEW OF SYSTEMS unable to obtain due to patient's lethargy. PHYSICAL EXAMINATION Vital Signs - 24 hr 10/15/19 10/15/19 12:37 12:46 Temperature 100 F H Pulse Rate 85 85 Pulse Rate [ 85 Apical] Respiratory 20 Rate Blood Pressure 92/55 L Blood Pressure 93/61 [Left Arm] O2 Sat by Pulse 97 100 Oximetry (%) GA lethargic, unresponsive to pain or calling her name, labored breathing HEENT NC/AT, pale conjunctiva, dry MM Chest decreased BS b/l, poor inspiratory effort CVS S1, S2+, RRR Abd soft, NT, ND, colosotmy bag expressing black-tarry stool Ext no LE edema, no calf tenderness, thin extremities, cachectic and deconditioned Laboratory Results - last 24 hr 10/15/19 10/15/19 10/15/19 12:24 12:24 12:24 WBC 13.8 H RBC 2.17 L Hgb 7.2 L Hct 21.4 L MCV 98.7 H MCH 33.4 MCHC 33.8 RDW 16.5 H Plt Count 234 MPV 8.9 Absolute Neuts (auto) 12.2 H Neutrophils % 88.0 H Lymphocytes % 4.7 L D Monocytes % 6.4 Eosinophils % 0.4 Basophils % 0.5 Nucleated RBC % 0 PT with INR 12.40 INR 1.05 PTT (Actin FS) 22.9 L VBG pH POC VBG pCO2 POC VBG pO2 VBG HCO3 VBG O2 Sat (Aixa) VBG Base Excess Sodium 136 Potassium 4.8 Chloride 98 Carbon Dioxide 27 Anion Gap 11 BUN 130.1 H* Creatinine 3.7 H Est GFR (CKD-EPI)AfAm 13.31 Est GFR (CKD-EPI)NonAf 11.48 Random Glucose 94 Lactic Acid Calcium 10.6 H Total Bilirubin 0.9 AST 73 H ALT 15 Alkaline Phosphatase 111 Creatine Kinase 110 Troponin I 1.18 H* B-Natriuretic Peptide 2335.5 H Total Protein 6.7 Albumin 2.3 L Urine Color Urine Appearance Urine pH Ur Specific Meta Urine Protein Urine Glucose (UA) Urine Ketones Urine Blood Urine Nitrite Urine Bilirubin Urine Urobilinogen Ur Leukocyte Esterase Urine WBC (Auto) Urine RBC (Auto) Urine Casts (Auto) U Pathogenic Cast Auto U Epithel Cells (Auto) Urine Crystals (Auto) Urine Bacteria (Auto) Influenza A (Rapid) Influenza B (Rapid) RSV Rapid 10/15/19 10/15/19 10/15/19 12:24 12:24 14:30 WBC RBC Hgb Hct MCV MCH MCHC RDW Plt Count MPV Absolute Neuts (auto) Neutrophils % Lymphocytes % Monocytes % Eosinophils % Basophils % Nucleated RBC % PT with INR INR PTT (Actin FS) VBG pH 7.38 POC VBG pCO2 48.1 POC VBG pO2 < 49 H VBG HCO3 28.1 VBG O2 Sat (Aixa) 71.1 VBG Base Excess 3.3 H Sodium Potassium Chloride Carbon Dioxide Anion Gap BUN Creatinine Est GFR (CKD-EPI)AfAm Est GFR (CKD-EPI)NonAf Random Glucose Lactic Acid 1.0 Calcium Total Bilirubin AST ALT Alkaline Phosphatase Creatine Kinase Troponin I B-Natriuretic Peptide Total Protein Albumin Urine Color Dk yellow Urine Appearance Turbid Urine pH 5.5 Ur Specific Meta 1.016 Urine Protein 100 Urine Glucose (UA) Negative Urine Ketones Trace H Urine Blood 2+ H Urine Nitrite Positive H Urine Bilirubin Negative Urine Urobilinogen 0.2 Ur Leukocyte Esterase Negative Urine WBC (Auto) 1568.8 Urine RBC (Auto) 13.1 Urine Casts (Auto) 87.71 U Pathogenic Cast Auto U Epithel Cells (Auto) 216.2 Urine Crystals (Auto) Urine Bacteria (Auto) 29.3 Influenza A (Rapid) Influenza B (Rapid) RSV Rapid 10/15/19 10/15/19 10/15/19 15:00 15:00 15:30 WBC RBC Hgb Hct MCV MCH MCHC RDW Plt Count MPV Absolute Neuts (auto) Neutrophils % Lymphocytes % Monocytes % Eosinophils % Basophils % Nucleated RBC % PT with INR INR PTT (Actin FS) VBG pH POC VBG pCO2 POC VBG pO2 VBG HCO3 VBG O2 Sat (Aixa) VBG Base Excess Sodium Potassium Chloride Carbon Dioxide Anion Gap BUN Creatinine Est GFR (CKD-EPI)AfAm Est GFR (CKD-EPI)NonAf Random Glucose Lactic Acid Calcium Total Bilirubin AST ALT Alkaline Phosphatase Creatine Kinase Troponin I B-Natriuretic Peptide Total Protein Albumin Urine Color Yellow Urine Appearance Turbid Urine pH 5.0 Ur Specific Meta 1.017 Urine Protein 1+ H Urine Glucose (UA) Negative Urine Ketones Negative Urine Blood 2+ H Urine Nitrite Negative Urine Bilirubin Negative Urine Urobilinogen 0.2 Ur Leukocyte Esterase 2+ H Urine WBC (Auto) 37 Urine RBC (Auto) 3 Urine Casts (Auto) 46 U Pathogenic Cast Auto U Epithel Cells (Auto) 14.8 Urine Crystals (Auto) Moderate uric acid Urine Bacteria (Auto) 7.9 Influenza A (Rapid) Negative Influenza B (Rapid) Negative RSV Rapid Negative ASSESSMENT/PLAN: 73 F h/o Metastatic Breast Ca (bone, peritoneal cavity, stomach), s/p mastectomy , s/p small bowel resection/R colectomy/end ileostomy due to mets, last CTx , bilateral ureteral stents due to bilateral hydronephrosis due to compressive metastatic ca, presents with progressive lethargy and increase black stool production. History of recent FOBT positive stool via ileostomy, Hx of nodular mucosa at GEJ and erythematous gastric mucosa on prior EGD Low BP in ED but responsive to fluid challenge, transfuse 1 unit to keep above 7 , family refusing invasive procedures (including central line) GI consult: Dr Alves Lethargy likely 2/2 ongoing UGIB, metabolic encephalopathy, worsening metastasis UTI not likely to cause this degree of lethargy, but given 1 dose of Tigecycline in ED ID consult: Dr Joiner ALEKSANDER on CKD multifactorial, Renal US showing grossly unchanged b/l hydro from last exam likely pre-renal, will cont. hydration w/ 1/2 NS repeat labs in AM Chronic Systolic HF, etiology unclear ?sec to Chemotherapy EF 20%, bibasal effusions, mild LE edema. Hold BB in view of low BP, active bleeding, repeat trops (? elevation 2/2 to demand) cont. IVF Cardiology consult Metastatic Breast Ca (Bone - C/L spine, ribs, femoral shafts, sacrum, peritoneal cavity), s/p mastectomy, last CTx 09/01/[address] Bibasal effusions on recent CT Chest likely from mets Heme-Onc eval, however patient will likely not tolerate any further chemotherapy Family opting for DNR/DNI and possible comfort measures, they will like to discuss further but for now they do not want invasive measures. Acute on Chronic Anemia ? sec to CTx vs chronic disease vs marrow infiltration by tumor process + Acute Blood Loss (GI source). transfuse PRN to keep hgb >7, now Hgb 7.2 but in view of severe lethargy, active bleeding and low BP, will transfuse 1 unit Prognosis poor. DNR/DNI. Med-surg Family aware of patient's prognosis and are opting to avoid any invasive measures and they are leaning towards comfort measures. Visit type - Emergency Visit Emergency Visit: Yes ED Registration Date: 10/15/19 Care time: The patient presented to the Emergency Department on the above date and was hospitalized for further evaluation of their emergent condition. - New Patient This patient is new to me today: Yes Date on this admission: 10/15/19 - Critical Care Critical Care patient: No
[2019-10-16] MEDS ORDERED: PANTOPRAZOLE SODIUM 40 MG VIAL ONE (00:12)
--- NOTE | 2019-10-16 08:22 | PN ---
Physical Exam: SUBJECTIVE: Patient seen and examined. Pt minimally responsive. Appears to be comfortable. Will continue to monitor and comfort family at this time. OBJECTIVE: Last Vital Signs Temp Pulse Resp BP Pulse Ox 98.6 F 80 20 101/60 100 10/16/19 04:25 10/16/19 04:25 10/16/19 06:25 10/16/19 04:25 10/16/19 06:25 GENERAL: Pt is no acute distress. Pt comfortable Pul: CTAB CV: RRR no M/G/R GI: ND, NT Laboratory Results - last 24 hr CBC,CMP WBC 13.8 K/mm3 (4.0-10.0) H 10/15/19 12:24 RBC 2.17 M/mm3 (3.60-5.2) L 10/15/19 12:24 Hgb 7.2 GM/dL (10.7-15.3) L 10/15/19 12:24 Hct 21.4 % (32.4-45.2) L 10/15/19 12:24 MCV 98.7 fl (80-96) H 10/15/19 12:24 MCH 33.4 pg (25.7-33.7) 10/15/19 12:24 MCHC 33.8 g/dl (32.0-36.0) 10/15/19 12:24 RDW 16.5 % (11.6-15.6) H 10/15/19 12:24 Plt Count 234 K/MM3 (134-434) 10/15/19 12:24 MPV 8.9 fl (7.5-11.1) 10/15/19 12:24 Absolute Neuts (auto) 12.2 K/mm3 (1.5-8.0) H 10/15/19 12:24 Neutrophils % 88.0 % (42.8-82.8) H 10/15/19 12:24 Lymphocytes % 4.7 % (8-40) L D 10/15/19 12:24 Monocytes % 6.4 % (3.8-10.2) 10/15/19 12:24 Eosinophils % 0.4 % (0-4.5) 10/15/19 12:24 Basophils % 0.5 % (0-2.0) 10/15/19 12:24 Nucleated RBC % 0 % (0-0) 10/15/19 12:24 Sodium 136 mmol/L (136-145) 10/15/19 12:24 Potassium 4.8 mmol/L (3.5-5.1) 10/15/19 12:24 Chloride 98 mmol/L (98-107) 10/15/19 12:24 Carbon Dioxide 27 mmol/L (21-32) 10/15/19 12:24 Anion Gap 11 MMOL/L (8-16) 10/15/19 12:24 BUN 130.1 mg/dL (7-18) H* 10/15/19 12:24 Creatinine 3.7 mg/dL (0.55-1.3) H 10/15/19 12:24 Est GFR (CKD-EPI)AfAm 13.31 10/15/19 12:24 Est GFR (CKD-EPI)NonAf 11.48 10/15/19 12:24 Random Glucose 94 mg/dL (74-106) 10/15/19 12:24 Lactic Acid 0.8 mmol/L (0.4-2.0) 10/16/19 00:20 Calcium 10.6 mg/dL (8.5-10.1) H 10/15/19 12:24 Total Bilirubin 0.9 mg/dL (0.2-1) 10/15/19 12:24 AST 73 U/L (15-37) H 10/15/19 12:24 ALT 15 U/L (13-61) 10/15/19 12:24 Alkaline Phosphatase 111 U/L (45-117) 10/15/19 12:24 Creatine Kinase 110 U/L (26-192) 10/15/19 12:24 Troponin I 1.14 ng/ml (0.00-0.05) H* 10/16/19 00:20 B-Natriuretic Peptide 2335.5 pg/ml (5-125) H 10/15/19 12:24 Total Protein 6.7 g/dl (6.4-8.2) 10/15/19 12:24 Albumin 2.3 g/dl (3.4-5.0) L 10/15/19 12:24 Active Medications Current Medications Sodium Chloride (1/2 Normal Saline) 1,000 mls @ 42 mls/hr IV ASDIR TRICIA Last Admin: 10/15/19 16:32 Dose: 42 mls/hr Pantoprazole Sodium (Protonix Iv) 40 mg IVPUSH BID [facility] Last Admin: 10/16/19 00:24 Dose: 40 mg Home Medications Medication Instructions Recorded Calcium Citrate/Magnesium/D3 2 tab PO DAILY 05/08/17 [Calcium Citrate Chewable Wafer] Cholecalciferol (Vitamin D3) 3,000 unit PO DAILY 05/08/17 [Vitamin D3] Ferrous Sulfate [Feosol] 325 mg PO DAILY 01/15/18 Cyclobenzaprine HCl 10 mg PO Q8H 09/13/19 Ondansetron HCl [Zofran] 8 mg PO Q8H 09/13/19 Albuterol 2.5/Ipratropium 0.5 1 amp NEB RTID amp 10/07/19 [Duoneb -] Carvedilol [Coreg -] 3.125 mg PO BID tablet 10/07/19 Pregabalin [Lyrica -] 75 mg PO BID #60 capsule MDD 150 10/07/19 traMADol HCL [Ultram -] 50 mg PO Q6H PRN tablet MDD 200 10/07/19 Magnesium Citrate 800 mg PO DAILY 10/15/19 Magnesium Oxide [Magnesium] 400 mg PO DAILY 10/15/19 Vit B Comp/C/Folic/Iron/Vit E 1 each PO DAILY 10/15/19 [Vitamin B Complex Tablet] ASSESSMENT/PLAN: 73 y/o F, pmh of Breast cancer stage 3A w/ mets to the spine, peritoneal cavity , colon, spine, s/p right mastectomy, s/p radiation, b/l ureteral stents w/ b/l hydro, mild b/l pleural effusion, presents w/ Lethargy and unresponsiveness likely 2/2 to anemia #Anemia 2/2 to GI bleed vs worsening metastatic process Colostomy w/ black colored stool UTI low suspicion for lethargy but given 1 dose of Tigecycline ID consult: Dr Joiner- appreciate consult Discussed with Family- Elizabethakira Arredondo (HCP) verified pt's wishes were that she be kept comfortable. Family decided and agreed on palliative care and to keep pt comfortable. MOLST form was completed. PALLIATIVE care was offered- will f/u with [facility] Inpt Hospice care was offered, Family by bedside Morphine drip and IV pushes Q1H Ativan and Haldol Scopalamine patch I answered all questions and comforted the family #ALEKSANDER, elevated Cre b/l hydronephrosis s/p ureteral stents Hx of ESBL likely colonized, resistant to several abx except gentamycin and tigecycline #Elevated ALP likely 2/2 to metastatic process of bones vs biliary disease #New Systolic CHF Progressive renal dysfunction precludes use of Entresto, ACEI, ARB, or spironolactone at this time. Consider hydralazine + nitrate after pt's renal function as stabilized #Macrocytic Anemia ? sec to CTx vs chronic disease vs marrow infiltration by tumor process. Hb improved Ferrous sulfate #Right pelvic mass US bladder- cystic mass like density right hemipelvis- irregular mass like density if its anterior wall. #DVTppx FEN monitor lytes Regular diet Dispo: monitor off abx, pending Auth Prognosis poor DNR/DNI. Family aware of patient's prognosis and are opting to avoid all invasive measures, treatments, labs, medicines. Visit type - Emergency Visit Emergency Visit: Yes ED Registration Date: 10/15/19 Care time: The patient presented to the Emergency Department on the above date and was hospitalized for further evaluation of their emergent condition. - New Patient This patient is new to me today: Yes Date on this admission: 10/16/19 - Critical Care Critical Care patient: No - Discharge Referral Referred to [facility] Med [facility].C[facility] No ATTENDING PHYSICIAN STATEMENT I saw and evaluated the patient. I reviewed the resident's note and discussed the case with the resident. I agree with the resident's findings and plan as documented. SUBJECTIVE: OBJECTIVE: ASSESSMENT AND PLAN:
--- NOTE | 2019-10-16 09:07 | PN ---
Teaching Attending Note Name of Resident: Toñito Quintana ATTENDING PHYSICIAN STATEMENT I saw and evaluated the patient. I reviewed the resident's note and discussed the case with the resident. I agree with the resident's findings and plan as documented. Seen and examined; please see resident note for further historical information. I personally verified all limon historical information and exam findings. Personally interpreted all imaging and diagnostics and reviewed appropriate consults. I reviewed all labs and vital signs as per resident note and EMR as documented. I agree with the above assessment and plan unless supplemented by myself in the following. Seen and examined at bedside and discussed at length with patient's HCP. The patient presented last night with sepsis secondary to a urinary tract infection worsening renal failure and new mass in the pelvis with known metastatic cancer and poor functional status who is DNR/DNI. Healthcare proxy works within the healthcare field and they are in agreement with patient being transition to comfort care only status. The patient and goals of care were discussed at length, and the determination was that we would not use further antibiotics, obtain IV access only to administer comfort meds, sees non-comfort based medications. We have started her on a morphine infusion along with as needed Ativan and Haldol, scopolamine patch will be applied every 72 hours. I anticipate her to pass within hours to days. Initially the plan was to aggressively replete with fluids within reason given her exceedingly poor ejection fraction and provide aggressive antibiotic coverage for sepsis. She would be kept with aspiration precautions for her markedly altered mental status , with her being awake alert and oriented x0, with this likely secondary to uremia with her BUN newly in the 130 range. Awake alert and oriented x0, toxic appearing, resting in bed, barely protecting airway with gurgling evident Tachycardic with faint heart sounds, bilateral pitting edema and slight jugular venous distention Colostomy with liquid contents, nontender to palpation with positive bowel sounds Bilateral rales with poor respiratory effort, with symmetrical expansion Could not complete psychiatric examination No focal neurologic deficits but could not complete full neurologic assessment secondary to mental status aberrations, moving all 4 extremities but not to any guided stimulus, does respond to painful stimuli but not verbal Paperwork completed and placed in chart, discussed at length with resident team
[2019-10-16] MEDS ORDERED: PANTOPRAZOLE SODIUM 40 MG VIAL IVPUSH ONE (09:15)
[2019-10-16 09:52] VITALS: TEMP 97.4
[2019-10-16] MEDS ORDERED: morphine SULFATE 4 MG/ML VIAL IVPUSH PRN (10:00)
[2019-10-16] MEDS ORDERED: TIGECYCLINE 100 MG in DEXTROSE 5%-WATER - 100 ML IVPB SCH (10:00)
[2019-10-16] MEDS ORDERED: HALOPERIDOL LACTATE 5 MG/ML IM PRN (10:00)
[2019-10-16] MEDS ORDERED: LORazepam 2 MG/ML SDV VIAL IVPUSH PRN (10:03)
[2019-10-16] MEDS ORDERED: SCOPOLAMINE HYDROBROMIDE 1 PATCH PATCH.TD72 TD SCH (10:15)
[2019-10-16] MEDS ORDERED: morphine SULFATE 4 MG/ML VIAL ONE (11:08)
--- NOTE | 2019-10-16 11:19 | PN ---
Progress Note (short form) - Note Progress Note: ID CONSULT DICTATED R/O SEPSIS SECONDARY TO SOURCE HX CRE, URINE OBSTRUCTIVE UROPATHY ACUTE ON CHRONIC RENAL FAILURE TOXIC METABOLIC ENCEPHALOPATHY METASTATIC BREAST CA PENDING C/S EMPIRIC AVYCAZ + STAT DOSE VANCOMYCIN PROGNOSIS POOR
[2019-10-16] MEDS ORDERED: VANCOMYCIN 1,000 MG in DEXTROSE 5%-WATER - 250 ML IVPB ONE (11:22)
[2019-10-16] MEDS ORDERED: VANCOMYCIN 1 GRAM (PRE-DOCKED) 1,000 MG/250 ML BAG IVPB ONE (11:34)
--- NOTE | 2019-10-16 11:54 | CONS ---
DATE OF CONSULTATION: DATE OF DICTATION: 10/16/2019 INFECTIOUS DISEASE CONSULTATION HISTORY OF PRESENT ILLNESS: The patient is a 73-year-old female evaluated for sepsis. History was obtained from the chart as well as the patient's niece who was present at the time of the examination. She is a 73-year-old female with a history of metastatic breast cancer. She was recently admitted to the hospital from September 17 through October 10, 2019. At that time she was treated for pelvic pain and dehydration. She was found to have a right upper extremity cellulitis as well as evidence of colitis. She received a course of vancomycin and Zosyn. At that time her course was complicated by a CRE urine culture from the nephrostomy tube and Bahena. [facility]. Over the past several days she has had worsening lethargy and altered mental status. She had been poorly responsive. She was also noted to have black stool in her colostomy. She was transferred to the emergency room where she was noted to have a low grade fever of 100 and hypotension. Cultures were obtained. She was empirically treated with Tygacil and gentamicin. At the present time she is awake but lethargic. She offers no complaints. She is minimally responsive. She remains hypotensive. She is also noted to be anemic. Her healthcare proxy has declined blood transfusion. PAST MEDICAL HISTORY: Positive for metastatic breast cancer. She was originally diagnosed in 2008. She is status post mastectomy and chemotherapy. She has metastases to the bone, stomach and the peritoneal cavity. Past medical history also positive for obstructive uropathy, status post bilateral ureteral stents and left percutaneous nephrostomy; history of bowel obstruction secondary to tumor, status post diverting colostomy; hypertension; congestive heart failure. PAST SURGICAL HISTORY: Status post mastectomy, status post diverting colostomy. ALLERGIES: No known allergies. MEDICATIONS: Include Haldol, morphine, Tygacil. SOCIAL HISTORY: She presently resides in a intermediate facility for rehabilitation. No active tobacco or alcohol use. SYSTEMS REVIEW: Neurologic: As per HPI. No loss of consciousness, seizure activity or focal weakness. Cardiac: Negative chest pain or palpitations. Respiratory: Negative cough or sputum production. Gastrointestinal: Negative vomiting or diarrhea. Positive diverting colostomy. Genitourinary: Status post left percutaneous nephrostomy and bilateral ureteral stents. LABORATORY DATA: White count 13.8, hematocrit 21.4, platelets 234, creatinine 3.7, lactic acid 0.8. Influenza swab negative. Blood cultures pending. Urine culture pending. Chest x-ray negative for acute infiltrate. PHYSICAL EXAMINATION: General: She is poorly responsive, pale. Vital Signs: Temperature 97.4, T-max 100, blood pressure 97/55, pulse 79 regular, respiration 20 per minute. HEENT: Sclerae are anicteric. Heart: Sounds S1, S2. Lungs: Diminished breath sounds bilaterally. Abdomen: Soft. No tenderness elicited. An ostomy is present on the right abdomen with blackish stool. Extremities: Positive for edema. Genitourinary: There is a Bahena catheter and a left percutaneous nephrostomy tube in place. Urine does not appear to be grossly purulent. IMPRESSION: 1. Rule out sepsis secondary to genitourinary focus. 2. 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 3. Obstructive uropathy. 4. [id number] renal failure. 5. Toxic metabolic encephalopathy. 6. Metastatic breast cancer. Await sepsis workup. Empiric antibiotic coverage with Avycaz plus stat dose vancomycin, adjust for renal failure. IV fluid hydration. Palliative care appropriate at this time. Case was discussed with patient's niece present at the time of the examination. Thank you for the kind referral. CHASITY VOSS M.D. [id number]
[2019-10-16] MEDS ORDERED: CEFTAZIDIME/AVIBACTAM 0.94 GM in DEXTROSE 5%-WATER - 100 ML IVPB SCH (12:00)
[2019-10-16] MEDS: VANCOMYCIN 1 GRAM (PRE-DOCKED) 1,000 MG/250 ML BAG IVPB ONE ×2 (12:13→12:14)
[2019-10-16 13:43] LABS: MAGNESIUM 2.4 mg/dL (1.8-2.4); PHOSPHOROUS 7.5 mg/dL (2.5-4.9)
[2019-10-16 14:14] LABS: URIC ACID 16.8 mg/dL (2.6-7.2)
--- NOTE | 2019-10-16 14:15 | EKG ---
Test Reason : Blood Pressure : / mmHG Vent. Rate : 080 BPM Atrial Rate : 080 BPM P-R Int : 168 ms QRS Dur : 102 ms QT Int : 386 ms P-R-T Axes : 016 030 072 degrees QTc Int : 445 ms NORMAL SINUS RHYTHM NORMAL ECG WHEN COMPARED WITH ECG OF 25-SEP-2019 10:11, NO SIGNIFICANT CHANGE WAS FOUND Confirmed by SHANNAN MIRELES MD ([id number]) on 10/16/2019 2:15:12 PM Referred By: Confirmed By:SHANNAN MIRELES MD
[2019-10-16] MEDS ORDERED: MORPHINE SULFATE/0.9% NACL/PF 100 MG/100 ML BAG ONE (14:17)
[2019-10-16] MEDS: MORPHINE SULFATE/0.9% NACL/PF 100 MG/100 ML BAG IVPB SCH (14:18)
[2019-10-16 15:34] VITALS: BP 104/62; PULSE 78
--- NOTE | 2019-10-16 15:45 | CONSULT ---
Consult Consult Specialty:: Nephrology Reason for Consultation:: ALEKSANDER - History of Present Illness Chief Complaint: sent in for lethargy History of Present Illness: Pt is a 73 year old female with pmhx of metastatic breast cancer, ckd, chf and GI bleed who was sent in for lethargy. She was recently discharged from the hospital. She was found to have worsening renal failure and I was called to evaluate her. She is lethargic and unable to give history. Family at bedside. 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: Yes: Peripheral Neuropathy Cardio/Vascular: Yes: HTN Renal/: Yes: Renal Failure, Renal Inusuff, UTI (hydronephrosis), Other ( obstructive uropathy) - Alcohol/Substance Use Hx Alcohol Use: No - Smoking History Smoking history: Smoker current status UNK Have you smoked in the past 12 months: No Aproximately how many cigarettes per day: 0 Home Medications - Allergies Allergies/Adverse Reactions: Allergies Allergy/AdvReac Type Severity Reaction Status Date / Time No Known Drug Allergies Allergy Verified 09/13/19 12:58 - Home Medications Home Medications: Ambulatory Orders Calcium Citrate/Magnesium/D3 [Calcium Citrate Chewable Wafer] 2 tab PO DAILY 08/12 Cholecalciferol (Vitamin D3) [Vitamin D3] 3,000 unit PO DAILY 05/08/17 Ferrous Sulfate [Feosol] 325 mg PO DAILY 01/15/18 Cyclobenzaprine HCl 10 mg PO Q8H 09/13/19 Ondansetron HCl [Zofran] 8 mg PO Q8H 09/13/19 Albuterol 2.5/Ipratropium 0.5 [Duoneb -] 1 amp NEB RTID amp 10/07/19 Carvedilol [Coreg -] 3.125 mg PO BID tablet 10/07/19 Pregabalin [Lyrica -] 75 mg PO BID #60 capsule MDD 150 10/07/19 traMADol HCL [Ultram -] 50 mg PO Q6H PRN tablet MDD 200 10/07/19 Magnesium Citrate 800 mg PO DAILY 10/15/19 Magnesium Oxide [Magnesium] 400 mg PO DAILY 10/15/19 Vit B Comp/C/Folic/Iron/Vit E [Vitamin B Complex Tablet] 1 each PO DAILY Family Medical History Family History: Unable to Obtain Review of Systems Unable to obtain ROS, reason: lethargy Physical Exam Vital Signs: Vital Signs Temperature 97.4 F L 10/16/19 09:51 Pulse Rate 78 10/16/19 15:33 Respiratory Rate 20 10/16/19 15:33 Blood Pressure 104/62 10/16/19 15:33 O2 Sat by Pulse Oximetry (%) 98 10/16/19 15:33 Constitutional: Yes: No Distress, Calm Cardiovascular: Yes: S1, S2 Respiratory: Yes: On Nasal O2 Gastrointestinal: Yes: Soft Renal/: Yes: Bahena Present, Incontinence Edema: RUE: 1+ Neurological: Yes: Lethargy Labs: CBC, BMP 10/15/19 12:24 10/15/19 12:24 Imaging - Results Cat Scan: Report Reviewed Problem List - Problems (1) ALEKSANDER (acute kidney injury) Code(s): N17.9 - ACUTE KIDNEY FAILURE, UNSPECIFIED (2) Renal dysfunction Code(s): N28.9 - DISORDER OF KIDNEY AND URETER, UNSPECIFIED (3) UTI (urinary tract infection) Code(s): N39.0 - URINARY TRACT INFECTION, SITE NOT SPECIFIED Assessment/Plan Current Medications Generic Name Dose Route Start Last Admin Trade Name Freq PRN Reason Stop Dose Admin Haloperidol 5 mg 10/16/19 10:00 Haldol Injection (Fast Acting) - IM Q12H PRN SHORTNESS OF BREATH Ceftazidime/Avibactam 0.94 gm/ 100 mls @ 50 mls/hr 10/16/19 12:00 10/16/19 14 :15 Dextrose IVPB 50 mls/hr DAILY TRICIA Administration Protocol Morphine Sulfate 100 mg in 100 mls @ 0.5 mls/hr 10/16/19 13:45 10/16/19 14:18 Morphine 100mg/100ml-0.9% Nacl IVPB 0.5 mls/hr TITR TRICIA Administration Protocol Lorazepam 1 mg 10/16/19 10:03 Ativan Injection - IVPUSH Q1H PRN AGITATION Morphine Sulfate 4 mg 10/16/19 10:00 Morphine Sulfate IVPUSH Q1H PRN PAIN LEVEL 6-10 Scopolamine HBr 1 patch 10/16/19 10:15 10/16/19 11:06 Transderm-Scop - TD 1 patch Q72H TRICIA Administration Impression 1. CKD 2. ALEKSANDER 3. obstructive uropathy 4. breast cancer with mets 5. HTN 6. hyperlipidemia 7. anemia 8. lethargy 9. CHF Plan - pt now on comfort care - discussed with family at bedside - she does not want any more blooddraws or further therapy - will follow prn - discussed with medical team earlier
--- NOTE | 2019-10-17 14:02 | PN ---
Teaching Attending Note Name of Resident: Toñito Quintana ATTENDING PHYSICIAN STATEMENT I saw and evaluated the patient. I reviewed the resident's note and discussed the case with the resident. I agree with the resident's findings and plan as documented. Seen and examined; please see resident note for further historical information. I personally verified all limon historical information and exam findings. Personally interpreted all imaging and diagnostics and reviewed appropriate consults. I reviewed all labs and vital signs as per resident note and EMR as documented. I agree with the above assessment and plan unless supplemented by myself in the following. Patient appears comfortable, nonverbal. On morphine drip, not requiring increased rate or additional PRN's. Family updated. 10 item review of systems could not be completed due to mentation from underlying illness VS, labs, imaging reviewed NAD, AAO, resting comfortably in bed. RRR s1/2 no mgr Normal muscle tone, moves all 5 extremities with normal apparent strength Neck is supple, trachea midline, no errol LN Lungs CTAB with sym expansion NT ND +BS no errol organomegaly CN2-12 wnl; no FND NC AT EOMI PERRLA Normal mood, appropriate behavior, euthymic affect No skin breakdown or rashes noted Assessment and plan: Remains on comfort care protocol with morphine, as needed Ativan/Haldol, scopolamine patch. Appears comfortable. Family updated. Paperwork completed and in chart. Anticipate within hours to days. Will complete inpatient hospice
--- NOTE | 2019-10-17 15:12 | PN ---
Physical Exam: SUBJECTIVE: Patient seen and examined. Pt minimally responsive. Appears to be comfortable. Will continue to monitor and comfort family at this time. OBJECTIVE: Vital Signs Period Temp Pulse Resp BP Sys/Avila Pulse Ox Last 24 Hr 78 9-20 104/62 98 GENERAL: Sedated, on morphine drip, NAD Pul: CTAB CV: Bradycardic GI: NT, ND Ext: no edema or swelling Active Medications Generic Name Dose Route Start Last Admin Trade Name Freq PRN Reason Stop Dose Admin Haloperidol 5 mg 10/16/19 10:00 Haldol Injection (Fast Acting) - IM Q12H PRN SHORTNESS OF BREATH Morphine Sulfate 100 mg in 100 mls @ 0.5 mls/hr 10/16/19 13:45 10/16/19 14:18 Morphine 100mg/100ml-0.9% Nacl IVPB 0.5 mls/hr TITR TRICIA Administration Protocol Lorazepam 1 mg 10/16/19 10:03 Ativan Injection - IVPUSH Q1H PRN AGITATION Morphine Sulfate 4 mg 10/16/19 10:00 Morphine Sulfate IVPUSH Q1H PRN PAIN LEVEL 6-10 Scopolamine HBr 1 patch 10/16/19 10:15 10/16/19 11:06 Transderm-Scop - TD 1 patch Q72H TRICIA Administration ASSESSMENT/PLAN: 73 y/o F, pmh of Breast cancer stage 3A w/ mets to the spine, peritoneal cavity , colon, spine, s/p right mastectomy, s/p radiation, b/l ureteral stents w/ b/l hydro, mild b/l pleural effusion, presents w/ Lethargy and unresponsiveness likely 2/2 to anemia #Anemia 2/2 to GI bleed vs worsening metastatic process Inpt Hospice care. Family by bedside Pt appears comfortable, no signs of gasping or breathing difficulty. Morphine drip at .5. RR regular. 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 sec to CTx vs chronic disease vs marrow infiltration by tumor process. Hb improved Ferrous sulfate #Right pelvic mass US bladder- cystic mass like density right hemipelvis- irregular mass like density if its anterior wall. #DVTppx FEN monitor lytes Regular diet Dispo: Prognosis poor DNR/DNI. Family aware of patient's prognosis and are opting to avoid all invasive measures, treatments, labs, medicines. Visit type - Emergency Visit Emergency Visit: Yes ED Registration Date: 10/15/19 Care time: The patient presented to the Emergency Department on the above date and was hospitalized for further evaluation of their emergent condition. - New Patient This patient is new to me today: Yes Date on this admission: 10/17/19 - Critical Care Critical Care patient: No - Discharge Referral Referred to [facility] Med [facility] No ATTENDING PHYSICIAN STATEMENT I saw and evaluated the patient. I reviewed the resident's note and discussed the case with the resident. I agree with the resident's findings and plan as documented. SUBJECTIVE: OBJECTIVE: ASSESSMENT AND PLAN:
[2019-10-17] MEDS: MORPHINE SULFATE/0.9% NACL/PF 100 MG/100 ML BAG IVPB SCH (18:23)
[2019-10-18] MEDS: MORPHINE SULFATE/0.9% NACL/PF 100 MG/100 ML BAG IVPB SCH (07:51)
--- NOTE | 2019-10-18 12:41 | PN ---
Progress Note (short form) - Note Progress Note: Informed by nursing on hourly checks that patient was not breathing around the 12P check. Paperwork completed. no breath sounds, no heart sounds, no response to verbal or painful stimuli. No autopsy. was expected and patient was comfort care only for their terminal cancer. Please see DCS for more information Visit type - Emergency Visit Emergency Visit: Yes ED Registration Date: 10/15/19 Care time: The patient presented to the Emergency Department on the above date and was hospitalized for further evaluation of their emergent condition. - New Patient This patient is new to me today: No - Critical Care Critical Care patient: No
--- NOTE | 2019-10-18 12:41 | DS ---
Physical Exam: SUBJECTIVE: Patient seen and examined OBJECTIVE: Vital Signs Period Temp Pulse Resp BP Sys/Avila Pulse Ox Last 24 Hr 9-14 PHYSICAL EXAM Nonresponsive to verbal or painful stimuli Cranial nerve and spinal labs and's of reflex No heart sounds No chest expansion HOSPITAL COURSE: Date of Admission:10/15/19 Date of Discharge: 10/18/19 Patient was admitted to the hospital with altered mentation secondary to uremia due to acute on chronic renal failure leading to toxic metabolic encephalopathy. This was furthermore complicated by the acute sepsis secondary to likely ESBL organism as well as the NSTEMI likely type II, but diagnostic cardiovascular work-up was not further initiated due to her being made comfort care. The patient was well-known to the service and to the oncology service due to her multiple admissions and ongoing cancer treatment. The resident note is completely inaccurate regarding the etiology of her altered mentation and should be disregarded as such She was placed on a morphine drip with scopolamine Haldol and Ativan as needed. She was comfortable throughout this and was pronounced on October 18 at approximately noon Minutes to complete discharge: 30 Discharge Summary Problems reviewed: Yes Reason For Visit: UTI SEPSIS Current Active Problems ALEKSANDER (acute kidney injury) (Acute) Acute on chronic systolic CHF (congestive heart failure) (Acute) Elevated troponin (Acute) Sepsis (Acute) Condition: - Instructions Referrals: Liam West MD [Primary Care Provider] - Disposition: - Home Medications Comprehensive Discharge Medication List: Ambulatory Orders Calcium Citrate/Magnesium/D3 [Calcium Citrate Chewable Wafer] 2 tab PO DAILY 08/12 Cholecalciferol (Vitamin D3) [Vitamin D3] 3,000 unit PO DAILY 05/08/17 Ferrous Sulfate [Feosol] 325 mg PO DAILY 01/15/18 Cyclobenzaprine HCl 10 mg PO Q8H 09/13/19 Ondansetron HCl [Zofran] 8 mg PO Q8H 09/13/19 Albuterol 2.5/Ipratropium 0.5 [Duoneb -] 1 amp NEB RTID amp 10/07/19 Carvedilol [Coreg -] 3.125 mg PO BID tablet 10/07/19 Pregabalin [Lyrica -] 75 mg PO BID #60 capsule MDD 150 10/07/19 traMADol HCL [Ultram -] 50 mg PO Q6H PRN tablet MDD 200 10/07/19 Magnesium Citrate 800 mg PO DAILY 10/15/19 Magnesium Oxide [Magnesium] 400 mg PO DAILY 10/15/19 Vit B Comp/C/Folic/Iron/Vit E [Vitamin B Complex Tablet] 1 each PO DAILY This patient is new to me today: No Emergency Visit: No Critical Care patient: No - Discharge Referral Referred to [facility] No
== END 2019-10-18 16:09 | disposition expired | DRG 871 ==
LOC: JER 12:17 → JERBED 14:34 → J7W 10-16 15:15
PROVIDERS: ATTEND Internal Medicine
DX: A41.51 Sepsis due to Escherichia coli [E. coli] (principal); I50.23 Acute on chronic systolic (congestive) heart failure; G93.41 Metabolic encephalopathy; I21.A1 Myocardial infarction type 2; N17.9 Acute kidney failure, unspecified; N39.0 Urinary tract infection, site not specified; C79.51 Secondary malignant neoplasm of bone; R64 Cachexia; N18.4 Chronic kidney disease, stage 4 (severe); I13.0 Hypertensive heart and chronic kidney disease with heart failure and stage 1 through stage 4 chronic kidney disease, or unspecified chronic kidney disease; Z93.3 Colostomy status; C50.919 Malignant neoplasm of unspecified site of unspecified female breast; D64.9 Anemia, unspecified; Z68.22 Body mass index [BMI] 22.0-22.9, adult; N13.9 Obstructive and reflux uropathy, unspecified
CPT/HCPCS: 36415; 71045-TC-FY; 74176-TC; 76775-TC; 76856-TC; 80053; 81003; 82550; 82803; 83605; 83735; 83880; 84100; 84484; 84550; 85025; 85610; 85730; 86850; 86900; 86901; 87040; 87086; 87186; 87804; 87807; 93005; 93010; 99285-25; J3243; J7030